=== PATIENT | male | born 1960 | race African-American/Black ===

== ENCOUNTER 2016-11-29 22:30 | Emergency (ER) | payer OTHER ==
[~2016-11-29 22:30] MED LIST: ACET325T16 PO; ASPI81TA9 PO; ATOR40TA59 PO; ENOX40DI SQ; FAMO20TA5 PO; FERR-26 PO; HYDR-2666 PO; INSU100I13 SQ; INSU100I17 SQ; INSU100I27 SQ; INSU100V5 IJ; LISI-338 PO; LISI2.5T PO; OMEG1CAP6 PO; PANT40TA5 PO; PIPE3.3710 IV; TRAM50TA PO; [UNRECOGNIZED DRUG - CODE] TP
[2016-11-30] MEDS ORDERED: INSULIN REGULAR 100 UNIT/ML 10ML VIAL. ONE (00:03)
[2016-11-30 00:10] LABS: BASO % 1 % (0-3); EOS % 1 % (0-3); HEMATOCRIT 28.8 % (39.0-53.0); HEMOGLOBIN 9.7 g/dL (13.0-17.5); LYMPH % 30 % (24-48); MEAN CORPUSCULAR HEMOGLOBIN 29 pg (25-35); MEAN CORPUSCULAR HGB CONC 34 g/dL (31-37); MEAN CORPUSCULAR VOLUME 88 fL (79-100); MONO % 6 % (0-9); NEUT % 62 % (31-73); PLATELET COUNT 155 x10^3/uL (140-400); RED CELL DISTRIBUTION WIDTH 15.5 % (11.5-14.5); WHITE BLOOD COUNT 6.7 x10^3/uL (4.0-11.0)
[2016-11-30] MEDS ORDERED: INSULIN REGULAR 100 UNIT/ML 10ML VIAL. IV ONE (00:15)
[2016-11-30] MEDS ORDERED: IV NORMAL SALINE 1000ML BAG 1,000 ML IV SCH (00:15)
[2016-11-30 00:24] LABS: ALBUMIN 1.5 g/dL (3.4-5.0); ALBUMIN/GLOBULIN RATIO 0.2 (1.0-1.7); CALCIUM 8.1 mg/dL (8.5-10.1); CREATININE 1.6 mg/dL (0.7-1.3); GFR 54.2; POTASSIUM 3.7 mmol/L (3.5-5.1); TOTAL BILIRUBIN 0.3 mg/dL (0.2-1.0); TOTAL PROTEIN 7.6 g/dL (6.4-8.2)
[2016-11-30 01:06] LABS: BILIRUBIN,URINE NEGATIVE (NEG); GLUCOSE,URINE >=1000 mg/dL (NEG); NITRITE,URINE NEGATIVE (NEG); PH,URINE 7.5; PROTEIN,URINE >=300 mg/dL (NEG-TRACE); UROBILINOGEN,URINE 0.2 mg/dL (0.2 mg/dL)
[2016-11-30 01:12] LABS: BACTERIA,URINE 0 /HPF (0-FEW); SQUAMOUS EPITHELIAL CELL,UR OCC /LPF; WBC,URINE 0 /HPF (0-4)
--- NOTE | 2016-11-30 02:40 | PHYS DOC ---
Past Medical History Past Medical History: Diabetes-Type II, Hypertension Past Surgical History: Other Additional Past Surgical Histo: HENRRY. BKA Alcohol Use: None Drug Use: None Adult General Chief Complaint Chief Complaint: MECHANICAL FALL HPI HPI Patient is a 56 year old gentleman with history significant for hypertension and diabetes status post bilateral AKA presents to the ER today secondary to his . Thump upstairs Upstairs in finding him on the floor. Patient has Hardwood floors. Patient denies any head trauma or loss of consciousness. Patient has any fevers shakes chills nausea vomiting diarrhea chest pain or short of breath. Patient denies any new weaknesses. Patient denies any C-spine T -spine or L-spine pain. Patient reports his tetanus status is up-to-date. Patient reports she currently has no discomforts and is not sure why his called EMS to bring him here. Patient's physical exam is significant for tenderness to palpation to his left arm where the abrasions are. Patient has no bony deformity. Patient has full range of motion to his C-spine. Patient has no tenderness palpation to his head. Patient has no tenderness to palpation to his upper or lower extremities. Patient has full range of motion to his arms. A/P #1 fall. Patient appears to have fallen out of bed while he is sleeping. Patient has no evidence of any significant head trauma or neck trauma. Patient does have some abrasions to his left arm. Patient has no tenderness to palpation to his hip. Patient pelvis is stable. There is no indication of this time for any x-rays as the patient is not complaining of any pain or discomfort anywhere. Patient does have abrasions to his left forearm that were Dermabond. #2 hyperglycemia. Patient was found to have an elevated blood sugar here greater than 600. Patient was given a liter of normal saline as well as 10 units of IV insulin. Patient's blood sugar was trending down prior to discharge. We have initiated treatment for the patient's hyperglycemia and have discussed with him appropriate treatment as well as dietary control. Patient is discussed with his primary care physician appropriate sliding scale. Patient does not have any evidence of DKA. There is no acidosis, there is no ketones in urine. Patient is clinically and hemodynamically stable for discharge to home. Review of Systems Review of Systems Constitutional: Denies fever or chills [] Eyes: Denies change in visual acuity, redness, or eye pain [] HENT: Denies nasal congestion or sore throat [] All other review systems are negative except as documented in the history of present illness. Current Medications Current Medications Current Medications Medications (Trade) Dose Ordered Sig/Akua Start Time Stop Time Status Last Admin Dose Admin Insulin Human Regular (Novolin R Vial) 100 unit STK-MED ONCE 11/30/16 00:03 11/30/16 00:04 DC Sodium Chloride (Iv Sodium Chloride 0.9% 1000ml Bag) 1,000 ml @ 1,000 mls/hr Q1H 11/30/16 00:15 11/30/16 01:14 DC 11/30/16 00:05 1,000 MLS/HR Allergies Allergies Allergies Coded Allergies Type Severity Reaction Last Updated Verified aspirin Allergy Intermediate Nausea and Vomiting 09/29/16 Yes I S O L A T I O N *CONTACT* Allergy Unknown 09/29/16 Yes No Known Medication Allergies Allergy Unknown 09/29/16 Yes Physical Exam Physical Exam Constitutional: Well developed, well nourished, no acute distress, non-toxic appearance. [] HENT: Normocephalic, atraumatic, bilateral external ears normal, oropharynx moist, no oral exudates, nose normal. [] Eyes: PERRLA, EOMI, conjunctiva normal, no discharge. [] Neck: Normal range of motion, no tenderness, supple, no stridor. [] Cardiovascular:Heart rate regular rhythm, Lungs & Thorax: Bilateral breath sounds clear to auscultation [] Abdomen: Bowel sounds normal, soft, no tenderness, no masses, no pulsatile masses. [] Skin: Warm, dry, no erythema, no rash. [] Back: No tenderness, no CVA tenderness. [] Extremities: No tenderness, Neurologic: Alert and oriented X 3, normal motor function, normal sensory function, no focal deficits noted. [] Psychologic: Affect normal, judgement normal, mood normal. [] Current Patient Data Vital Signs Vital Signs Date Time Temp Pulse Resp B/P Pulse Ox O2 Delivery O2 Flow Rate FiO2 11/30/16 02:41 72 170/88 99 Room Air 11/30/16 00:41 20 11/29/16 22:44 97.4 97.4 Lab Values Laboratory Tests Test 11/29/16 23:05 11/30/16 00:33 11/30/16 00:50 11/30/16 02:04 White Blood Count 6.7x10^3/uL (4.0-11.0) Red Blood Count 3.30x10^6/uL (4.30-5.70) L Hemoglobin 9.7g/dL (13.0-17.5) L Hematocrit 28.8% (39.0-53.0) L Mean Corpuscular Volume 88fL (79-100) Mean Corpuscular Hemoglobin 29pg (25-35) Mean Corpuscular Hemoglobin Concent 34g/dL (31-37) Red Cell Distribution Width 15.5% (11.5-14.5) H Platelet Count 155x10^3/uL (140-400) Neutrophils (%) (Auto) 62% (31-73) Lymphocytes (%) (Auto) 30% (24-48) Monocytes (%) (Auto) 6% (0-9) Eosinophils (%) (Auto) 1% (0-3) Basophils (%) (Auto) 1% (0-3) Neutrophils # (Auto) 4.2x10^3uL (1.8-7.7) Lymphocytes # (Auto) 2.0x10^3/uL (1.0-4.8) Monocytes # (Auto) 0.4x10^3/uL (0.0-1.1) Eosinophils # (Auto) 0.1x10^3/uL (0.0-0.7) Basophils # (Auto) 0.0x10^3/uL (0.0-0.2) Sodium Level 138mmol/L (136-145) Potassium Level 3.7mmol/L (3.5-5.1) Chloride Level 102mmol/L (98-107) Carbon Dioxide Level 30mmol/L (21-32) Anion Gap 6 (6-14) Blood Urea Nitrogen 25mg/dL (8-26) Creatinine 1.6mg/dL (0.7-1.3) H Estimated GFR (Cockcroft-Gault) 54.2 BUN/Creatinine Ratio 16 (6-20) Glucose Level 636mg/dL (70-99) *H Calcium Level 8.1mg/dL (8.5-10.1) L Total Bilirubin 0.3mg/dL (0.2-1.0) Aspartate Amino Transferase (AST) 37U/L (15-37) Alanine Aminotransferase (ALT) 33U/L (16-63) Alkaline Phosphatase 146U/L (46-116) H Total Protein 7.6g/dL (6.4-8.2) Albumin 1.5g/dL (3.4-5.0) L Albumin/Globulin Ratio 0.2 (1.0-1.7) L Glucose (Fingerstick) 559mg/dL (70-99) *H 437mg/dL (70-99) H Urine Collection Type Unknown Urine Color Yellow Urine Clarity Clear Urine pH 7.5 Urine Specific [place] 1.020 Urine Protein >=300mg/dL (NEG-TRACE) Urine Glucose (UA) >=1000mg/dL (NEG) Urine Ketones (Stick) Negativemg/dL (NEG) Urine Blood Small (NEG) Urine Nitrite Negative (NEG) Urine Bilirubin Negative (NEG) Urine Urobilinogen Dipstick 0.2mg/dL (0.2 mg/dL) Urine Leukocyte Esterase Negative (NEG) Urine RBC 3-5/HPF (0-2) Urine WBC 0/HPF (0-4) Urine Squamous Epithelial Cells Occ/LPF Urine Bacteria 0/HPF (0-FEW) Urine Mucus Slight/LPF Laboratory Tests 11/29/16 23:05 Laboratory Tests 11/29/16 23:05 EKG EKG [] Radiology/Procedures Radiology/Procedures [] Course & Med Decision Making Course & Med Decision Making Pertinent Labs and Imaging studies reviewed. (See chart for details) [] Dragon Disclaimer Dragon Disclaimer This electronic medical record was generated, in whole or in part, using a voice recognition dictation system. Departure Departure Impression: Primary Impression: Hyperglycemia due to type 1 diabetes mellitus Additional Impressions: Fall Arm abrasion Disposition: HOME, SELF-CARE Condition: IMPROVED Referrals: NO PCP (PCP) Patient Instructions: Abrasions, Fall Prevention and Home Safety, Hyperglycemia Additional Instructions: Please call your doctor in the morning to help with adjusting her insulin and her diet to help better control your blood sugar. Problem Qualifiers SUNDEEP GARRISON MD Nov 30, 2016 02:40
[2016-11-30 02:41] VITALS: BP 170/88
== END 2016-11-30 03:45 | disposition home or self-care (01) ==
LOC: ER 22:30
DX: S40.812A Abrasion of left upper arm, initial encounter (principal); E10.65 Type 1 diabetes mellitus with hyperglycemia; Z79.4 Long term (current) use of insulin; Z88.6 Allergy status to analgesic agent; Z91.041 Radiographic dye allergy status; I10 Essential (primary) hypertension; W06.XXXA Fall from bed, initial encounter; Y93.89 Activity, other specified; Y92.89 Other specified places as the place of occurrence of the external cause; Y99.8 Other external cause status
CPT/HCPCS: 36415; 80053; 81001; 82947; 85027; 96361; 96374; 99284; J1815; J7030

== ENCOUNTER 2016-12-10 07:56 | Inpatient (IN) | payer OTHER ==
[~2016-12-10] VITALS: Ht 200.7 cm; Wt 78.7 kg
[2016-12-10] MEDS ORDERED: INSULIN REGULAR 100 UNIT/ML 10ML VIAL. IV ONE (08:45)
[2016-12-10] MEDS ORDERED: IV NORMAL SALINE 1000ML BAG 1,000 ML IV ONE (08:45)
--- NOTE | 2016-12-10 08:46 | PHYS DOC ---
Past Medical History Past Medical History: Diabetes-Type II, Hypertension Past Surgical History: Other Additional Past Surgical Histo: HENRRY. BKA Alcohol Use: None Drug Use: None Adult General Chief Complaint Chief Complaint: SEIZURE HPI HPI Patient is a 56 year old female presents to the emergency department with a history of a two-minute seizure that was witnessed today. She also has a history of diabetes with a blood glucose of 588 per EMS. Patient appears to be alert and oriented to himself and his state of . Patient has bilateral BKA. Patient has a dressing on his right stump. Patient has multiple skin wounds one noted on the right hip one noted on the left knee, and right lateral knee. Review of Systems Review of Systems Constitutional: Denies fever or chills [] Eyes: Denies change in visual acuity, redness, or eye pain [] HENT: Denies nasal congestion or sore throat [] Respiratory: Denies cough or shortness of breath [] Cardiovascular: No additional information not addressed in HPI [] GI: Denies abdominal pain, nausea, bloody stools or diarrhea. Patient states he vomited at home : Denies dysuria or hematuria [] Musculoskeletal: Denies back pain or joint pain [] Integument: Denies rash or skin lesions [] Neurologic: Denies headache, focal weakness or sensory changes. Hx of seizure at home Current Medications Current Medications Current Medications Medications (Trade) Dose Ordered Sig/Akua Start Time Stop Time Status Last Admin Dose Admin Insulin Human Regular (Novolin R Vial) 10 unit 1X ONCE 12/10/16 08:45 12/10/16 08:46 DC 12/10/16 09:32 10 UNIT Sodium Chloride (Iv Sodium Chloride 0.9% 1000ml Bag) 1,000 ml @ 1,000 mls/hr 1X ONCE 12/10/16 08:45 12/10/16 09:44 DC 12/10/16 08:47 1,000 MLS/HR Allergies Allergies Allergies Coded Allergies Type Severity Reaction Last Updated Verified aspirin Allergy Intermediate Nausea and Vomiting 09/29/16 Yes I S O L A T I O N *CONTACT* Allergy Unknown 09/29/16 Yes No Known Medication Allergies Allergy Unknown 09/29/16 Yes Physical Exam Physical Exam Constitutional: Well developed, well nourished, no acute distress, non-toxic appearance. [] HENT: Normocephalic, atraumatic, bilateral external ears normal, oropharynx moist, no oral exudates, nose normal. [] Eyes: PERRLA, EOMI, conjunctiva normal, no discharge. [] Neck: Normal range of motion, no tenderness, supple, no stridor. [] Cardiovascular:Heart rate regular rhythm, no murmur [] Lungs & Thorax: Bilateral breath sounds clear to auscultation [] Abdomen: Bowel sounds normal, soft, no tenderness, no masses, no pulsatile masses. [] Skin: Warm, dry, no erythema, no rash. Patient with wound on the right hip that appears to be 5 cm x 3 cm in length the area appears to be open pink with no drainage. Patient also noted to have a wound on the right lateral part of the leg that appears to be healing. No drainage or discharge noted. Patient with wound on the left knee that appears to be healing as well. Patient with a dressing on the right lower limb that appears to have drainage and discharge noted. Back: No tenderness Extremities: No tenderness, ROM intact, no edema. Patient with bilateral BKA's noted. Neurologic: Alert and oriented X 1, normal motor function, normal sensory function, no focal deficits noted, cranial nerves II through XII intact. [] Psychologic: Affect normal, judgement impaired by altered mental status, mood normal. [] Current Patient Data Vital Signs Vital Signs Date Time Temp Pulse Resp B/P Pulse Ox O2 Delivery O2 Flow Rate FiO2 12/10/16 08:51 85 14 216/99 98 Room Air 12/10/16 08:14 97.5 97.5 Lab Values Laboratory Tests Test 12/10/16 08:40 White Blood Count 7.4x10^3/uL (4.0-11.0) Red Blood Count 3.52x10^6/uL (4.30-5.70) L Hemoglobin 10.7g/dL (13.0-17.5) L Hematocrit 30.6% (39.0-53.0) L Mean Corpuscular Volume 87fL (79-100) Mean Corpuscular Hemoglobin 30pg (25-35) Mean Corpuscular Hemoglobin Concent 35g/dL (31-37) Red Cell Distribution Width 15.8% (11.5-14.5) H Platelet Count 211x10^3/uL (140-400) Neutrophils (%) (Auto) 66% (31-73) Lymphocytes (%) (Auto) 27% (24-48) Monocytes (%) (Auto) 5% (0-9) Eosinophils (%) (Auto) 2% (0-3) Basophils (%) (Auto) 0% (0-3) Neutrophils # (Auto) 4.9x10^3uL (1.8-7.7) Lymphocytes # (Auto) 2.0x10^3/uL (1.0-4.8) Monocytes # (Auto) 0.4x10^3/uL (0.0-1.1) Eosinophils # (Auto) 0.1x10^3/uL (0.0-0.7) Basophils # (Auto) 0.0x10^3/uL (0.0-0.2) Sodium Level 139mmol/L (136-145) Potassium Level 3.7mmol/L (3.5-5.1) Chloride Level 103mmol/L (98-107) Carbon Dioxide Level 27mmol/L (21-32) Anion Gap 9 (6-14) Blood Urea Nitrogen 32mg/dL (8-26) H Creatinine 1.5mg/dL (0.7-1.3) H Estimated GFR (Cockcroft-Gault) 58.4 BUN/Creatinine Ratio 21 (6-20) H Glucose Level 594mg/dL (70-99) *H Calcium Level 9.1mg/dL (8.5-10.1) Total Bilirubin 0.3mg/dL (0.2-1.0) Aspartate Amino Transferase (AST) 30U/L (15-37) Alanine Aminotransferase (ALT) 27U/L (16-63) Alkaline Phosphatase 145U/L (46-116) H Troponin I Quantitative < 0.017ng/mL (0.000-0.055) Total Protein 8.0g/dL (6.4-8.2) Albumin 1.6g/dL (3.4-5.0) L Albumin/Globulin Ratio 0.3 (1.0-1.7) L Laboratory Tests 12/10/16 08:40 Laboratory Tests 12/10/16 08:40 EKG EKG EKG completed with a heart rate of 85 sinus rhythm noted no ectopy noted no STEMI noted per Dr. Shine. [] Radiology/Procedures Radiology/Procedures [facility] [address] [place], [place] [id number] IMAGING REPORT Signed PATIENT: CAROLYNE GRIMM ACCOUNT: [id number] : 1960 LOCATION: ER AGE: 56 SEX: M EXAM STATUS: REG ER ORD. PHYSICIAN: DENISE KEYS APRN REASON: seizure, altered mental status PROCEDURE: CT HEAD WO CONTRAST Indication seizure. Noncontrast images of the head were obtained. No prior imaging of the head is available. The calvarium appears unremarkable. The visualized paranasal sinuses appear normal. No subdural or epidural hematoma is seen. There is generalized atrophy. There is mild hydrocephalus. No mass or midline shift is seen. Acute finding is not seen. There is no evidence of parenchymal hemorrhage. IMPRESSION: Underlying atrophy. Mild hydrocephalus. No acute finding seen PQRS Compliance Statement: One or more of the following individualized dose reduction techniques were utilized for this examination: 1. Automated exposure control 2. Adjustment of the mA and/or kV according to patient size 3. Use of iterative reconstruction technique DICTATED and SIGNED BY: AMADOU WHITE MD DATE: 12/10/16928 CC: DENISE KEYS APRN; NO PCP; Christiano SHINE MD ~ [id number] [place] [address] IMAGING REPORT Signed PATIENT: CAROLYNE GRIMM ACCOUNT: [id number] : 1960 LOCATION: ER AGE: 56 SEX: M EXAM STATUS: REG ER ORD. PHYSICIAN: DENISE KEYS APRN REASON: seizure confused PROCEDURE: PORTABLE CHEST 1V Indication seizure. Chest pain. Suspect aspiration. A single view of the chest was obtained. Comparison is made to an examination August 24, 2016. Heart size is unchanged. There is no gross congestive heart failure. A focal infiltrate is not seen in either lung. There is no significant pleural fluid. There is no pneumothorax. A significant change when compared to the previous exam is not seen. IMPRESSION: No acute or focal process. No significant change DICTATED and SIGNED BY: AMADOU WHITE MD DATE: 12/10/1669 CC: DENISE KEYS APRN; NO PCP; NON,STAFF ~ Chest x-ray as interpreted by Dr. Shine with no acute cardiopulmonary disease process Head CT without contrast Course & Med Decision Making Course & Med Decision Making Pertinent Labs and Imaging studies reviewed. (See chart for details) CBC with WBC normal, CMP with glucose elevated. Lactic normal, troponin normal. Pending UA. Dr Shine in to evaluate patient. [address] Mederos in regards to admission for this patient. [] Patient was seen and examined with Denise Keys APRN. Agree with exam and plan as documented. He will be admitted to the hospital for altered mental status and uncontrolled hyperglycemia. -MD Yazmin Hu Disclaimer Dragon Disclaimer This electronic medical record was generated, in whole or in part, using a voice recognition dictation system. 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
--- NOTE | 2016-12-10 08:52 | EKG ---
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
[2016-12-10 09:21] LABS: ALBUMIN 1.6 g/dL (3.4-5.0); ALBUMIN/GLOBULIN RATIO 0.3 (1.0-1.7); CALCIUM 9.1 mg/dL (8.5-10.1); CREATININE 1.5 mg/dL (0.7-1.3); GFR 58.4; POTASSIUM 3.7 mmol/L (3.5-5.1); TOTAL BILIRUBIN 0.3 mg/dL (0.2-1.0)
--- NOTE | 2016-12-10 09:31 | RAD ---
Indication seizure. Chest pain. Suspect aspiration. A single view of the chest was obtained. Comparison is made to an examination August 24, 2016. Heart size is unchanged. There is no gross congestive heart failure. A focal infiltrate is not seen in either lung. There is no significant pleural fluid. There is no pneumothorax. A significant change when compared to the previous exam is not seen. IMPRESSION: No acute or focal process. No significant change
[2016-12-10 09:32] LABS: BASO % 0 % (0-3); EOS % 2 % (0-3); HEMATOCRIT 30.6 % (39.0-53.0); HEMOGLOBIN 10.7 g/dL (13.0-17.5); LYMPH % 27 % (24-48); MEAN CORPUSCULAR HEMOGLOBIN 30 pg (25-35); MEAN CORPUSCULAR HGB CONC 35 g/dL (31-37); MEAN CORPUSCULAR VOLUME 87 fL (79-100); MONO % 5 % (0-9); NEUT % 66 % (31-73); PLATELET COUNT 211 x10^3/uL (140-400); RED BLOOD COUNT 3.52 x10^6/uL (4.30-5.70); RED CELL DISTRIBUTION WIDTH 15.8 % (11.5-14.5); WHITE BLOOD COUNT 7.4 x10^3/uL (4.0-11.0)
--- NOTE | 2016-12-10 09:35 | RAD ---
Indication seizure. Noncontrast images of the head were obtained. No prior imaging of the head is available. The calvarium appears unremarkable. The visualized paranasal sinuses appear normal. No subdural or epidural hematoma is seen. There is generalized atrophy. There is mild hydrocephalus. No mass or midline shift is seen. Acute finding is not seen. There is no evidence of parenchymal hemorrhage. IMPRESSION: Underlying atrophy. Mild hydrocephalus. No acute finding seen PQRS Compliance Statement: One or more of the following individualized dose reduction techniques were utilized for this examination: 1. Automated exposure control 2. Adjustment of the mA and/or kV according to patient size 3. Use of iterative reconstruction technique
[2016-12-10] MEDS: IV NORMAL SALINE 1000ML BAG 1,000 ML IV SCH ×3 (09:59→22:58)
[2016-12-10 10:02] LABS: BILIRUBIN,URINE NEGATIVE (NEG); GLUCOSE,URINE >=1000 mg/dL (NEG); NITRITE,URINE NEGATIVE (NEG); PROTEIN,URINE 100 mg/dL (NEG-TRACE); UROBILINOGEN,URINE 0.2 mg/dL (0.2 mg/dL)
[2016-12-10 10:10] LABS: BACTERIA,URINE 0 /HPF (0-FEW); WBC,URINE 0 /HPF (0-4)
[2016-12-10] MEDS ORDERED: LABETALOL 20 MG/4 ML DISP.SYRIN. IVP ONE (10:15)
[2016-12-10 11:30] VITALS: BP 162/87
[2016-12-10] MEDS ORDERED: DEXTROSE 50% 25 GM / 50ML DISP.SYRIN. IV PRN (12:00)
[2016-12-10] MEDS: INSULIN ASPART 300 UNITS/3 ML INSULN.PEN SQ SCH ×3 (12:00→16:57)
[2016-12-10] MEDS ORDERED: INSULIN ASPART 300 UNITS/3 ML INSULN.PEN SQ ONE (12:30)
[2016-12-10 14:30] VITALS: BP 156/81
--- NOTE | 2016-12-10 14:59 | PDOC1 ---
History and Physical Date of Admission Date of Admission 12/10/16 Identification/Chief Complaint Chief Complaint seizure Problems: Source Source: Chart review, Patient History of Present Illness History of Present Illness HPI Patient is a 56 year old female presents to the emergency department with seizure. Pt likely has dementia, cannot contribute a good history, as per nurse, his said this is his baseline. Pt said he may had a history of seizure, but not on any meds for it. He said he had one time seizure last night, had urinary incontinence, another time of seizure today, but dosenot remember what happened. EMS was called. He is now aaox to 2, to person, place, but not the year or date. Patient has bilateral BKA. Patient has a dressing on his right stump. Patient has multiple skin wounds one noted on the right hip one noted on the left knee, and right lateral knee. Past Medical History Cardiovascular: No pertinent hx Pulmonary: No pertinent hx CENTRAL NERVOUS SYSTEM: Other GI: No pertinent hx Heme/Onc: No pertinent hx Hepatobiliary: No pertinent hx Psych: No pertinent hx Rheumatologic: No pertinent hx Infectious disease: No pertinent hx Renal/: No pertinent hx Endocrine: Diabetes Past Surgical History Past Surgical History: Appendectomy, Arthroscopy, Other Family History Family History: Coronary Artery Disease Social History Smoke: No ALCOHOL: none Drugs: None Current Problem List Problem List Problems Medical Problems: (1) Altered mental status Status: Acute (2) Seizure-like activity Status: Acute (3) Uncontrolled diabetes mellitus Status: Acute Current Medications Current Medications Current Medications Medications (Trade) Dose Ordered Sig/Akua Start Time Stop Time Status Last Admin Dose Admin Dextrose (Dextrose 50%-Water Syringe) 12.5 gm PRN Q15MIN PRN 12/10/16 12:00 Insulin Aspart (Novolog) 0-9 UNITS TIDWMEALS 12/10/16 12:00 Insulin Human Regular 10 unit 10 unit 1X ONCE 12/10/16 08:45 12/10/16 08:46 DC 12/10/16 09:32 10 UNIT Labetalol HCl (Normodyne) 10 mg 1X ONCE 12/10/16 10:15 12/10/16 10:16 DC 12/10/16 10:13 10 MG Sodium Chloride (Iv Sodium Chloride 0.9% 1000ml Bag) 1,000 ml @ 125 mls/hr Q8H 12/10/16 09:59 12/11/16 09:58 12/10/16 09:59 125 MLS/HR Allergies Allergies Allergies Coded Allergies Type Severity Reaction Last Updated Verified aspirin Allergy Intermediate Nausea and Vomiting 09/29/16 Yes I S O L A T I O N *CONTACT* Allergy Unknown 09/29/16 Yes No Known Medication Allergies Allergy Unknown 09/29/16 Yes ROS Review of System CONSTITUTIONAL: No fever or chills EYES: No recent changes SKIN: No rash or itching CARDIOVASCULAR: No chest pain, syncope, palpitations, or edema RESPIRATORY: No SOB or cough GASTROINTESTINAL: No nausea, vomiting or abdominal pain NEUROLOGICAL: No headaches or weakness ENDOCRINE: No cold or heat intolerance GENITOURINARY: No urgency or frequency of urination MUSCULOSKELETAL: No back pain or joint pain LYMPHATICS: No enlarged lymph nodes PSYCHIATRIC: No anxiety or depression Physical Exam Physical Exam GEN.: No apparent distress. Alert and oriented x2, to person, place, name of president, not year. follow commands HEENT: Head is normocephalic, atraumatic NECK: Supple. LUNGS: Clear to auscultation. HEART: RRR, S1, S2 present. Peripheral pulses intact ABDOMEN: Soft, nontender. Positive bowel sounds. EXTREMITIES: Without any cyanosis. bl bka, with superficial wound and dressing on NEUROLOGIC: Normal speech, normal tone PSYCHIATRIC: Normal affect, normal mood. SKIN: No ulcerations Vitals Vitals Vital Signs Date Time Temp Pulse Resp B/P Pulse Ox O2 Delivery O2 Flow Rate FiO2 12/10/16 14:30 98.8 79 20 156/81 98 Room Air 98.8 Labs Labs Laboratory Tests Test 12/10/16 08:40 12/10/16 09:05 12/10/16 09:23 12/10/16 09:53 White Blood Count 7.4x10^3/uL (4.0-11.0) Red Blood Count 3.52x10^6/uL (4.30-5.70) Hemoglobin 10.7g/dL (13.0-17.5) Hematocrit 30.6% (39.0-53.0) Mean Corpuscular Volume 87fL (79-100) Mean Corpuscular Hemoglobin 30pg (25-35) Mean Corpuscular Hemoglobin Concent 35g/dL (31-37) Red Cell Distribution Width 15.8% (11.5-14.5) Platelet Count 211x10^3/uL (140-400) Neutrophils (%) (Auto) 66% (31-73) Lymphocytes (%) (Auto) 27% (24-48) Monocytes (%) (Auto) 5% (0-9) Eosinophils (%) (Auto) 2% (0-3) Basophils (%) (Auto) 0% (0-3) Neutrophils # (Auto) 4.9x10^3uL (1.8-7.7) Lymphocytes # (Auto) 2.0x10^3/uL (1.0-4.8) Monocytes # (Auto) 0.4x10^3/uL (0.0-1.1) Eosinophils # (Auto) 0.1x10^3/uL (0.0-0.7) Basophils # (Auto) 0.0x10^3/uL (0.0-0.2) Sodium Level 139mmol/L (136-145) Potassium Level 3.7mmol/L (3.5-5.1) Chloride Level 103mmol/L (98-107) Carbon Dioxide Level 27mmol/L (21-32) Anion Gap 9 (6-14) Blood Urea Nitrogen 32mg/dL (8-26) Creatinine 1.5mg/dL (0.7-1.3) Estimated GFR (Cockcroft-Gault) 58.4 BUN/Creatinine Ratio 21 (6-20) Glucose Level 594mg/dL (70-99) Calcium Level 9.1mg/dL (8.5-10.1) Total Bilirubin 0.3mg/dL (0.2-1.0) Aspartate Amino Transf (AST/SGOT) 30U/L (15-37) Alanine Aminotransferase (ALT/SGPT) 27U/L (16-63) Alkaline Phosphatase 145U/L (46-116) Troponin I Quantitative < 0.017ng/mL (0.000-0.055) Total Protein 8.0g/dL (6.4-8.2) Albumin 1.6g/dL (3.4-5.0) Albumin/Globulin Ratio 0.3 (1.0-1.7) Lactic Acid Level 1.5mmol/L (0.4-2.0) Glucose (Fingerstick) 519mg/dL (70-99) Urine Collection Type Unknown Urine Color Yellow Urine Clarity Clear Urine pH 7.0 Urine Specific [place] 1.015 Urine Protein 100mg/dL (NEG-TRACE) Urine Glucose (UA) >=1000mg/dL (NEG) Urine Ketones (Stick) Tracemg/dL (NEG) Urine Blood Small (NEG) Urine Nitrite Negative (NEG) Urine Bilirubin Negative (NEG) Urine Urobilinogen Dipstick 0.2mg/dL (0.2 mg/dL) Urine Leukocyte Esterase Negative (NEG) Urine RBC 6-10/HPF (0-2) Urine WBC 0/HPF (0-4) Urine Bacteria 0/HPF (0-FEW) Test 12/10/16 11:47 Glucose (Fingerstick) 361mg/dL (70-99) Laboratory Tests Test 12/10/16 08:40 12/10/16 09:05 12/10/16 09:23 12/10/16 09:53 White Blood Count 7.4x10^3/uL (4.0-11.0) Red Blood Count 3.52x10^6/uL (4.30-5.70) Hemoglobin 10.7g/dL (13.0-17.5) Hematocrit 30.6% (39.0-53.0) Mean Corpuscular Volume 87fL (79-100) Mean Corpuscular Hemoglobin 30pg (25-35) Mean Corpuscular Hemoglobin Concent 35g/dL (31-37) Red Cell Distribution Width 15.8% (11.5-14.5) Platelet Count 211x10^3/uL (140-400) Neutrophils (%) (Auto) 66% (31-73) Lymphocytes (%) (Auto) 27% (24-48) Monocytes (%) (Auto) 5% (0-9) Eosinophils (%) (Auto) 2% (0-3) Basophils (%) (Auto) 0% (0-3) Neutrophils # (Auto) 4.9x10^3uL (1.8-7.7) Lymphocytes # (Auto) 2.0x10^3/uL (1.0-4.8) Monocytes # (Auto) 0.4x10^3/uL (0.0-1.1) Eosinophils # (Auto) 0.1x10^3/uL (0.0-0.7) Basophils # (Auto) 0.0x10^3/uL (0.0-0.2) Sodium Level 139mmol/L (136-145) Potassium Level 3.7mmol/L (3.5-5.1) Chloride Level 103mmol/L (98-107) Carbon Dioxide Level 27mmol/L (21-32) Anion Gap 9 (6-14) Blood Urea Nitrogen 32mg/dL (8-26) Creatinine 1.5mg/dL (0.7-1.3) Estimated GFR (Cockcroft-Gault) 58.4 BUN/Creatinine Ratio 21 (6-20) Glucose Level 594mg/dL (70-99) Calcium Level 9.1mg/dL (8.5-10.1) Total Bilirubin 0.3mg/dL (0.2-1.0) Aspartate Amino Transf (AST/SGOT) 30U/L (15-37) Alanine Aminotransferase (ALT/SGPT) 27U/L (16-63) Alkaline Phosphatase 145U/L (46-116) Troponin I Quantitative < 0.017ng/mL (0.000-0.055) Total Protein 8.0g/dL (6.4-8.2) Albumin 1.6g/dL (3.4-5.0) Albumin/Globulin Ratio 0.3 (1.0-1.7) Lactic Acid Level 1.5mmol/L (0.4-2.0) Glucose (Fingerstick) 519mg/dL (70-99) Urine Collection Type Unknown Urine Color Yellow Urine Clarity Clear Urine pH 7.0 Urine Specific [place] 1.015 Urine Protein 100mg/dL (NEG-TRACE) Urine Glucose (UA) >=1000mg/dL (NEG) Urine Ketones (Stick) Tracemg/dL (NEG) Urine Blood Small (NEG) Urine Nitrite Negative (NEG) Urine Bilirubin Negative (NEG) Urine Urobilinogen Dipstick 0.2mg/dL (0.2 mg/dL) Urine Leukocyte Esterase Negative (NEG) Urine RBC 6-10/HPF (0-2) Urine WBC 0/HPF (0-4) Urine Bacteria 0/HPF (0-FEW) Test 12/10/16 11:47 Glucose (Fingerstick) 361mg/dL (70-99) VTE Prophylaxis Ordered VTE Prophylaxis Devices: Yes VTE Pharmacological Prophylaxi: Yes Assessment/Plan Assessment/Plan 1. seizure like activity, need to rule out epilepsy 2. h/o seizure? 2. dm2, uncontrolled, 4. uncompliance 5. htn 6. TE, vasomotor 7. bl leg BKA with wound 8. possible baseline mild dementia plan: neuro consult wound care consult check hba1c, levemir 20u qhs, aspart 6u tid, SSI ivf ptot ativan prn fall precaution dvt ppx check ckmb, urine drug tox FOREST LEWIS MD Dec 10, 2016 14:59
[2016-12-10] MEDS ORDERED: TRAMADOL 50 MG TABLET. PO PRN (15:00)
[2016-12-10] MEDS ORDERED: LISINOPRIL 10 MG TABLET PO SCH (15:00)
[2016-12-10] MEDS ORDERED: hydrALAZINE 20 MG/ML VIAL. IVP PRN (15:00)
[2016-12-10] MEDS ORDERED: LORAZEPAM 2 MG/ML VIAL. IV PRN (15:00)
[2016-12-10] MEDS ORDERED: HYDROCODONE/APAP 5/325MG TABLET. PO PRN (15:00)
[2016-12-10] MEDS ORDERED: ONDANSETRON PF 4 MG/2 ML VIAL. IV PRN (15:00)
[2016-12-10 15:13] LABS: BARBITURATES NEG (NEG); BENZODIAZEPINES NEG (NEG); CANNABINOIDS NEG (NEG); COCAINE NEG (NEG); ETHANOL, URINE NEG (NEG); METHADONE NEG (NEG); OPIATES NEG (NEG); PHENCYCLIDINE NEG (NEG)
[2016-12-10 15:19] LABS: CKMB INDEX 3.2 % (0-4); CKMB MASS 3.3 ng/mL (0.0-3.6)
[2016-12-10] MEDS: LISINOPRIL 5 MG TABLET. PO SCH (16:50)
[2016-12-10 19:59] VITALS: BP 137/80
[2016-12-10] MEDS: FAMOTIDINE 20 MG TABLET. PO SCH (21:25)
[2016-12-10] MEDS: HEPARIN PF for SUB-Q USE 5,000 UNIT/0.5 ML VIAL. SQ SCH (21:43)
[2016-12-10] MEDS: INSULIN DETEMIR 300 UNITS/3 ML INSULN.PEN. SQ SCH (21:43)
[2016-12-10 23:59] VITALS: BP 157/83
[2016-12-11 05:17] LABS: BASO % 0 % (0-3); EOS % 1 % (0-3); HEMATOCRIT 25.2 % (39.0-53.0); HEMOGLOBIN 8.8 g/dL (13.0-17.5); LYMPH # 2.7 x10^3/uL (1.0-4.8); LYMPH % 39 % (24-48); MEAN CORPUSCULAR HEMOGLOBIN 30 pg (25-35); MEAN CORPUSCULAR HGB CONC 35 g/dL (31-37); MEAN CORPUSCULAR VOLUME 88 fL (79-100); MONO % 5 % (0-9); NEUT % 54 % (31-73); PLATELET COUNT 184 x10^3/uL (140-400); RED BLOOD COUNT 2.88 x10^6/uL (4.30-5.70); RED CELL DISTRIBUTION WIDTH 16.5 % (11.5-14.5); WHITE BLOOD COUNT 6.9 x10^3/uL (4.0-11.0)
[2016-12-11 05:31] LABS: CALCIUM 7.6 mg/dL (8.5-10.1); CREATININE 1.2 mg/dL (0.7-1.3); GFR 75.5
[2016-12-11 05:35] LABS: POTASSIUM 2.8 mmol/L (3.5-5.1)
[2016-12-11] MEDS: HEPARIN PF for SUB-Q USE 5,000 UNIT/0.5 ML VIAL. SQ SCH ×3 (05:46→20:56)
[2016-12-11] MEDS ORDERED: POTASSIUM CHLORIDE 20 MEQ TABLET.ER. PO ONE ×2 (06:00→10:00)
[2016-12-11 07:00] VITALS: BP 152/87
[2016-12-11] MEDS: INSULIN ASPART 300 UNITS/3 ML INSULN.PEN SQ SCH ×6 (08:00→18:09)
[2016-12-11] MEDS: FAMOTIDINE 20 MG TABLET. PO SCH ×2 (09:12→21:12)
[2016-12-11] MEDS: FERROUS SULFATE 325 MG TABLET. PO SCH (09:12)
[2016-12-11] MEDS: LISINOPRIL 5 MG TABLET. PO SCH (09:13)
[2016-12-11] MEDS: ACETAMINOPHEN 325 MG TABLET. PO PRN ×3 (09:16→21:12)
--- NOTE | 2016-12-11 10:21 | PDOC ---
PROGRESS NOTES Chief Complaint Chief Complaint 1. seizure like activity, possible seizure 2. acute metabolic encephalopathy, prior CVA, gen weakness and debility 2. dm2, uncontrolled, 4. uncompliance meds 5. htn 6. TE, vasomotor 7. bl leg BKA with wound, peripheral vascular dz 8. possible baseline mild dementia History of Present Illness History of Present Illness neuro consult and wound consult severe malnutriton, he reports still hungry after breakfast, Nutrition supps and consult. will double portion meals would likely benefit from skilled or rehab ivf, may DC, replace K+, give mag ptot ativan prn fall precaution Vitals Vitals Vital Signs Date Time Temp Pulse Resp B/P Pulse Ox O2 Delivery O2 Flow Rate FiO2 12/11/16 09:13 75 152/87 12/11/16 07:00 98.4 16 99 Room Air 98.4 Physical Exam General: Alert, Oriented X3, Cooperative, No acute distress Heart: Regular rate, No murmurs Lungs: Clear Abdomen: Normal bowel sounds, Soft Extremities: No clubbing, No cyanosis Skin: No rashes, No breakdown Labs LABS Laboratory Tests Test 12/10/16 11:00 12/10/16 11:47 12/10/16 16:23 12/10/16 20:59 Nasal Screen MRSA (PCR) Positive (Negative) Glucose (Fingerstick) 361mg/dL (70-99) 346mg/dL (70-99) 286mg/dL (70-99) Test 12/11/16 03:01 12/11/16 07:14 White Blood Count 6.9x10^3/uL (4.0-11.0) Red Blood Count 2.88x10^6/uL (4.30-5.70) Hemoglobin 8.8g/dL (13.0-17.5) Hematocrit 25.2% (39.0-53.0) Mean Corpuscular Volume 88fL (79-100) Mean Corpuscular Hemoglobin 30pg (25-35) Mean Corpuscular Hemoglobin Concent 35g/dL (31-37) Red Cell Distribution Width 16.5% (11.5-14.5) Platelet Count 184x10^3/uL (140-400) Neutrophils (%) (Auto) 54% (31-73) Lymphocytes (%) (Auto) 39% (24-48) Monocytes (%) (Auto) 5% (0-9) Eosinophils (%) (Auto) 1% (0-3) Basophils (%) (Auto) 0% (0-3) Neutrophils # (Auto) 3.7x10^3uL (1.8-7.7) Lymphocytes # (Auto) 2.7x10^3/uL (1.0-4.8) Monocytes # (Auto) 0.3x10^3/uL (0.0-1.1) Eosinophils # (Auto) 0.1x10^3/uL (0.0-0.7) Basophils # (Auto) 0.0x10^3/uL (0.0-0.2) Sodium Level 140mmol/L (136-145) Potassium Level 2.8mmol/L (3.5-5.1) Chloride Level 107mmol/L (98-107) Carbon Dioxide Level 25mmol/L (21-32) Anion Gap 8 (6-14) Blood Urea Nitrogen 26mg/dL (8-26) Creatinine 1.2mg/dL (0.7-1.3) Estimated GFR (Cockcroft-Gault) 75.5 Glucose Level 217mg/dL (70-99) Calcium Level 7.6mg/dL (8.5-10.1) Glucose (Fingerstick) 131mg/dL (70-99) Review of Systems Review of Systems no n.vd. Assessment and Plan Assessmemt and Plan Problems Medical Problems: (1) Altered mental status Status: Acute (2) Seizure-like activity Status: Acute (3) Uncontrolled diabetes mellitus Status: Acute Problems: Comment Review of Relevant I have reviewed the following items yobani (where applicable) has been applied. Labs Laboratory Tests Test 12/10/16 08:40 12/10/16 09:05 12/10/16 09:23 12/10/16 09:53 White Blood Count 7.4x10^3/uL (4.0-11.0) Red Blood Count 3.52x10^6/uL (4.30-5.70) Hemoglobin 10.7g/dL (13.0-17.5) Hematocrit 30.6% (39.0-53.0) Mean Corpuscular Volume 87fL (79-100) Mean Corpuscular Hemoglobin 30pg (25-35) Mean Corpuscular Hemoglobin Concent 35g/dL (31-37) Red Cell Distribution Width 15.8% (11.5-14.5) Platelet Count 211x10^3/uL (140-400) Neutrophils (%) (Auto) 66% (31-73) Lymphocytes (%) (Auto) 27% (24-48) Monocytes (%) (Auto) 5% (0-9) Eosinophils (%) (Auto) 2% (0-3) Basophils (%) (Auto) 0% (0-3) Neutrophils # (Auto) 4.9x10^3uL (1.8-7.7) Lymphocytes # (Auto) 2.0x10^3/uL (1.0-4.8) Monocytes # (Auto) 0.4x10^3/uL (0.0-1.1) Eosinophils # (Auto) 0.1x10^3/uL (0.0-0.7) Basophils # (Auto) 0.0x10^3/uL (0.0-0.2) Sodium Level 139mmol/L (136-145) Potassium Level 3.7mmol/L (3.5-5.1) Chloride Level 103mmol/L (98-107) Carbon Dioxide Level 27mmol/L (21-32) Anion Gap 9 (6-14) Blood Urea Nitrogen 32mg/dL (8-26) Creatinine 1.5mg/dL (0.7-1.3) Estimated GFR (Cockcroft-Gault) 58.4 BUN/Creatinine Ratio 21 (6-20) Glucose Level 594mg/dL (70-99) Calcium Level 9.1mg/dL (8.5-10.1) Total Bilirubin 0.3mg/dL (0.2-1.0) Aspartate Amino Transf (AST/SGOT) 30U/L (15-37) Alanine Aminotransferase (ALT/SGPT) 27U/L (16-63) Alkaline Phosphatase 145U/L (46-116) Creatine Kinase 103U/L (39-308) Creatine Kinase MB (Mass) 3.3ng/mL (0.0-3.6) Creatine Kinase MB Relative Index 3.2% (0-4) Troponin I Quantitative < 0.017ng/mL (0.000-0.055) Total Protein 8.0g/dL (6.4-8.2) Albumin 1.6g/dL (3.4-5.0) Albumin/Globulin Ratio 0.3 (1.0-1.7) Lactic Acid Level 1.5mmol/L (0.4-2.0) Glucose (Fingerstick) 519mg/dL (70-99) Urine Collection Type Unknown Urine Color Yellow Urine Clarity Clear Urine pH 7.0 Urine Specific [place] 1.015 Urine Protein 100mg/dL (NEG-TRACE) Urine Glucose (UA) >=1000mg/dL (NEG) Urine Ketones (Stick) Tracemg/dL (NEG) Urine Blood Small (NEG) Urine Nitrite Negative (NEG) Urine Bilirubin Negative (NEG) Urine Urobilinogen Dipstick 0.2mg/dL (0.2 mg/dL) Urine Leukocyte Esterase Negative (NEG) Urine RBC 6-10/HPF (0-2) Urine WBC 0/HPF (0-4) Urine Bacteria 0/HPF (0-FEW) Urine Opiates Screen Neg (NEG) Urine Methadone Screen Neg (NEG) Urine Barbiturates Neg (NEG) Urine Phencyclidine Screen Neg (NEG) Urine Amphetamine/Methamphetamine Neg (NEG) Urine Benzodiazepines Screen Neg (NEG) Urine Cocaine Screen Neg (NEG) Urine Cannabinoids Screen Neg (NEG) Urine Ethyl Alcohol Neg (NEG) Test 12/10/16 11:00 12/10/16 11:47 12/10/16 16:23 12/10/16 20:59 Nasal Screen MRSA (PCR) Positive (Negative) Glucose (Fingerstick) 361mg/dL (70-99) 346mg/dL (70-99) 286mg/dL (70-99) Test 12/11/16 03:01 12/11/16 07:14 White Blood Count 6.9x10^3/uL (4.0-11.0) Red Blood Count 2.88x10^6/uL (4.30-5.70) Hemoglobin 8.8g/dL (13.0-17.5) Hematocrit 25.2% (39.0-53.0) Mean Corpuscular Volume 88fL (79-100) Mean Corpuscular Hemoglobin 30pg (25-35) Mean Corpuscular Hemoglobin Concent 35g/dL (31-37) Red Cell Distribution Width 16.5% (11.5-14.5) Platelet Count 184x10^3/uL (140-400) Neutrophils (%) (Auto) 54% (31-73) Lymphocytes (%) (Auto) 39% (24-48) Monocytes (%) (Auto) 5% (0-9) Eosinophils (%) (Auto) 1% (0-3) Basophils (%) (Auto) 0% (0-3) Neutrophils # (Auto) 3.7x10^3uL (1.8-7.7) Lymphocytes # (Auto) 2.7x10^3/uL (1.0-4.8) Monocytes # (Auto) 0.3x10^3/uL (0.0-1.1) Eosinophils # (Auto) 0.1x10^3/uL (0.0-0.7) Basophils # (Auto) 0.0x10^3/uL (0.0-0.2) Sodium Level 140mmol/L (136-145) Potassium Level 2.8mmol/L (3.5-5.1) Chloride Level 107mmol/L (98-107) Carbon Dioxide Level 25mmol/L (21-32) Anion Gap 8 (6-14) Blood Urea Nitrogen 26mg/dL (8-26) Creatinine 1.2mg/dL (0.7-1.3) Estimated GFR (Cockcroft-Gault) 75.5 Glucose Level 217mg/dL (70-99) Calcium Level 7.6mg/dL (8.5-10.1) Glucose (Fingerstick) 131mg/dL (70-99) Laboratory Tests Test 12/10/16 11:00 12/10/16 11:47 12/10/16 16:23 12/10/16 20:59 Nasal Screen MRSA (PCR) Positive (Negative) Glucose (Fingerstick) 361mg/dL (70-99) 346mg/dL (70-99) 286mg/dL (70-99) Test 12/11/16 03:01 12/11/16 07:14 White Blood Count 6.9x10^3/uL (4.0-11.0) Red Blood Count 2.88x10^6/uL (4.30-5.70) Hemoglobin 8.8g/dL (13.0-17.5) Hematocrit 25.2% (39.0-53.0) Mean Corpuscular Volume 88fL (79-100) Mean Corpuscular Hemoglobin 30pg (25-35) Mean Corpuscular Hemoglobin Concent 35g/dL (31-37) Red Cell Distribution Width 16.5% (11.5-14.5) Platelet Count 184x10^3/uL (140-400) Neutrophils (%) (Auto) 54% (31-73) Lymphocytes (%) (Auto) 39% (24-48) Monocytes (%) (Auto) 5% (0-9) Eosinophils (%) (Auto) 1% (0-3) Basophils (%) (Auto) 0% (0-3) Neutrophils # (Auto) 3.7x10^3uL (1.8-7.7) Lymphocytes # (Auto) 2.7x10^3/uL (1.0-4.8) Monocytes # (Auto) 0.3x10^3/uL (0.0-1.1) Eosinophils # (Auto) 0.1x10^3/uL (0.0-0.7) Basophils # (Auto) 0.0x10^3/uL (0.0-0.2) Sodium Level 140mmol/L (136-145) Potassium Level 2.8mmol/L (3.5-5.1) Chloride Level 107mmol/L (98-107) Carbon Dioxide Level 25mmol/L (21-32) Anion Gap 8 (6-14) Blood Urea Nitrogen 26mg/dL (8-26) Creatinine 1.2mg/dL (0.7-1.3) Estimated GFR (Cockcroft-Gault) 75.5 Glucose Level 217mg/dL (70-99) Calcium Level 7.6mg/dL (8.5-10.1) Glucose (Fingerstick) 131mg/dL (70-99) Microbiology 12/10/16 Blood Culture - Preliminary, Resulted NO GROWTH AFTER 1 DAY Medications Current Medications Sodium Chloride (Iv Sodium Chloride 0.9% 1000ml Bag) 1,000 ml @ 1,000 mls/hr 1X ONCE IV Last administered on 12/10/16 08:47; Start 12/10/16 at 08:45; Stop 12/10/16 at 09:44; Status DC Insulin Human Regular 10 unit 10 unit 1X ONCE IV Last administered on 09:32; Start 12/10/16 at 08:45; Stop 12/10/16 at 08:46; Status DC Sodium Chloride (Iv Sodium Chloride 0.9% 1000ml Bag) 1,000 ml @ 125 mls/hr Q8H IV Last administered on 12/10/16 22:58; Start 12/10/16 at 09:59; Stop at 09:58; Status DC Labetalol HCl (Normodyne) 10 mg 1X ONCE IVP Last administered on 12/10/16 10: 13; Start 12/10/16 at 10:15; Stop 12/10/16 at 10:16; Status DC Insulin Aspart (Novolog) 10 units 1X ONCE SQ Last administered on 12/10/16 12 :13; Start 12/10/16 at 12:30; Stop 12/10/16 at 12:31; Status DC Insulin Aspart (Novolog) 0-9 UNITS TIDWMEALS SQ Last administered on 12/10/16 16:56; Start 12/10/16 at 12:00 Dextrose (Dextrose 50%-Water Syringe) 12.5 gm PRN Q15MIN PRN IV SEE COMMENTS; Start 12/10/16 at 12:00 Famotidine (Pepcid) 20 mg BID PO Last administered on 12/11/16 09:12; Start at 21:00 Ferrous Sulfate (Feosol) 325 mg DAILY PO Last administered on 12/11/16 09:12; Start 12/11/16 at 09:00 Acetaminophen/ Hydrocodone Bitart (Lortab 5/325) 1 tab PRN Q6HRS PRN PO PAIN; Start 12/10/16 at 15:00 Lisinopril (Prinivil) 10 mg DAILY PO ; Start 12/10/16 at 15:00; Status Cancel Tramadol HCl (Ultram) 50 mg PRN Q6HRS PRN PO PAIN; Start 12/10/16 at 15:00 Lisinopril (Prinivil) 5 mg DAILY PO Last administered on 12/11/16 09:13; Start 12/10/16 at 15:00 Insulin Detemir (Levemir) 20 units QHS SQ Last administered on 12/10/16 21:43 ; Start 12/10/16 at 21:00 Insulin Aspart (Novolog) 6 units TIDAC SQ Last administered on 12/11/16 09:26 ; Start 12/10/16 at 16:30 Acetaminophen (Tylenol) 650 mg PRN Q6HRS PRN PO FEVER Last administered on 12/11 09:16; Start 12/10/16 at 15:00 Ondansetron HCl (Zofran) 4 mg PRN Q6HRS PRN IV NAUSEA/VOMITING; Start 12/10/16 at 15:00 Hydralazine HCl (Apresoline) 10 mg PRN Q4HRS PRN IVP ELEVATED BP, SEE COMMENTS ; Start 12/10/16 at 15:00 Heparin Sodium (Porcine) 5,000 unit Q8HRS SQ Last administered on 12/10/16 21: 43; Start 12/10/16 at 22:00 Lorazepam (Ativan) 2 mg PRN Q4HRS PRN IV ANXIETY / AGITATION; Start 12/10/16 at 15:00 Potassium Chloride (Klor-Con) 40 meq 1X ONCE PO Last administered on 06:00; Start 12/11/16 at 06:00; Stop 12/11/16 at 06:01; Status DC Potassium Chloride (Klor-Con) 40 meq 1X ONCE PO Last administered on 09:12; Start 12/11/16 at 10:00; Stop 12/11/16 at 10:01; Status DC Potassium Chloride 20 meq 20 meq [id number] PO ; Start 12/11/16 at 10:00 Magnesium Sulfate/ Dextrose (Magnesium Sulfate PREMIX 2GM) 50 ml @ 25 mls/hr 1X ONCE IV ; Start 12/11/16 at 10:30; Stop 12/11/16 at 12:29 Active Scripts Active Reported Piperacil-Tazobact 3.375 Gm Vl (Piperacillin Sodium/Tazobactam) 3.375 Gm Vial 3.375 Gm IV Q6HRS Ferrous Sulfate 325 Mg Tablet 300 Mg PO DAILY Tramadol Hcl 50 Mg Tablet 1 Tab PO PRN Q6HRS PRN Silver Nitrate Applicator 1 Each Stick..ea. 1 Each TP Famotidine 20 Mg Tablet 20 Mg PO BID Lisinopril 5 Mg Tablet 1 Tab PO DAILY Hydrocodone-Apap 5-325 (Hydrocodone Bit/Acetaminophen) 1 Each Tablet 1 Tab PO PRN Q6HRS PRN Lovenox (Enoxaparin Sodium) 40 Mg/0.4 Ml Disp.syrin 0.4 Ml SQ DAILY Humulin R (Insulin Regular, Human) 100 Unit/1 Ml Vial 7 Unit IJ TID Lantus Solostar (Insulin Glargine,Hum.rec.anlog) 100 Unit/1 Ml Insuln.pen 35 Unit SQ QHS Vitals/I & O Vital Sign - Last 24 Hours 12/10/16 12/10/16 12/10/16 12/10/16 10:21 11:30 11:38 14:30 Temp 97.8 98.8 97.8 98.8 Pulse 78 75 79 Resp 13 20 B/P 139/72 162/87 156/81 Pulse Ox 99 98 O2 Delivery Room Air Room Air Room Air 12/10/16 12/10/16 12/10/16 12/10/16 16:50 19:37 19:59 23:59 Temp 98.7 98.4 98.7 98.4 Pulse 79 84 78 Resp 20 20 B/P 156/81 137/80 157/83 Pulse Ox 97 98 O2 Delivery Room Air Room Air Room Air 12/11/16 12/11/16 07:00 09:13 Temp 98.4 98.4 Pulse 75 75 Resp 16 B/P 152/87 152/87 Pulse Ox 99 O2 Delivery Room Air Intake and Output 12/10/16 12/10/16 12/11/16 14:59 22:59 06:59 Intake Total 120 ml 240 ml Output Total 500 ml Balance 120 ml 240 ml -500 ml DOMENICA CHRISTIANSON MD Dec 11, 2016 10:21
[2016-12-11] MEDS ORDERED: MAGNESIUM SULFATE 2GM 50 ML IV ONE (10:30)
--- NOTE | 2016-12-11 10:38 | ACF ---
Admit Criteria Forms Admit Criteria Forms Admit Criteria Forms MENTAL STATUS CHANGE Clinical Indications for Inpatient Care (Place 'X' for any and all applicable criteria): Ongoing inpatient care may be needed for 1 or more of the following(1)(2)(3)(5)( 6): [X]I. Suspected serious etiology (eg, medical disorder, DRUM TENDER event) of altered mental status [ ]II. Danger to self or others not manageable at lower level of care [ ]III. Grave disability (eg, inability to perform self care necessary at lower level of care) [ ]IV. Agitation or inappropriate behavior interfering with care for primary condition (eg, attempting to discontinue lines or drains prematurely, unable to cooperate with respiratory care) [ ]V. Delirium [A] [D][E] as described by 1 or more of the following(26): [ ]a) Delirium due to alcohol or sedative [F] withdrawal [ ]b) Delirium of uncertain etiology that has not responded to appropriate empiric treatment [ ]c) Delirium that prevents performance of a life-sustaining function (eg, feeding or hydrating oneself) [ ]. General contraindications and/or Inappropriate clinical situations for Observational Care in patients with Mental Status Change, when ANY ONE of the following is required: [ ]a) Prediction of prolongation of LOS based on ANY ONE of the following may be considered as a contraindication for observational care 2, 3, 4, 5, 6, 7, 8, 9, 10, 11 [ ]i) Age > 65 yrs. [ ]ii) Patient arriving by ambulance [ ]iii) Patient with high acuity [ ]iv) Patient requiring vital sign monitoring [ ]v) Patient on IV medication [ ]b) Systolic blood pressures greater than or equal to 180mmHg 3, 12 [ ]c) Patient with altered mental status including delirium and other alteration of consciousness, (3) [ ]d) Patient whose discharge disposition will be to a nursing home home or rehabilitation home should not be managed in Emergency Department Observation Unit. CMS rule requires 3 days hospital stay before such placement.3,13 [ ]e) Patient with failure to thrive due to broad array of etiologies 3,16,17 [ ]f) Inability to ambulate 3,14 Extended stay beyond goal length of stay for the primary condition may be needed until ALL of the following are present(3)(5): [ ]a) Underlying medical etiology of mental status change is absent, or has been established and adequately treated [ ]b) Danger to self or others is absent or manageable at lower level of care. [ ]c) Behavior crisis management, including physical or chemical restraints, is not required or available at lower level of car [ ]d) Substance or alcohol withdrawal is absent or manageable at lower level of care. [ ]e) Behavioral symptoms (eg, agitation, somnolence, inappropriate behavior) are absent, or are manageable at lower level of care. The original [facility] content created by [facility] has been revised. The portions of the content which have been revised are identified through the use of italic text or in bold, and [facility] has neither reviewed nor approved the modified material. All other unmodified content is copyright [facility]. Please see references footnoted in the original [facility] edition 2016 BRENDA PARKER Dec 11, 2016 10:38
[2016-12-11 11:00] VITALS: BP 131/83
[2016-12-11] MEDS: POTASSIUM CHLORIDE 20 MEQ TABLET.ER. PO SCH (12:33)
[2016-12-11 14:48] VITALS: BP 131/83
--- NOTE | 2016-12-11 16:28 | PDOC2 ---
CONSULT Date of Consult Date of Consult DATE: 12/11/16 TIME: 16:24 Reason for Consult Reason for Consult: Possible seizure. History of Present Illness Reason for Visit: This patient is 56-year-old man who presented to emergency room with a possible seizure. Patient is a poor historian. Patient denies any history of season as he is not currently on any seizure medication. Patient did not have any any seizure episodes or similar spells in the emergency room or here in the hospital during hospital stay. Left a message for patient's to get more information. Patient may have an episode of urinary incontinence and there was no history of any jerkiness in his extremity no tongue bite. Patient has bilateral below-knee amputations. He had a CT scan done of the brain which showed atrophy. No acute intracranial processes. Past Medical History Cardiovascular: No pertinent hx Pulmonary: No pertinent hx CENTRAL NERVOUS SYSTEM: Other GI: No pertinent hx Heme/Onc: No pertinent hx Hepatobiliary: No pertinent hx Psych: No pertinent hx Musculoskeletal: Osteoarthritis Rheumatologic: No pertinent hx Infectious disease: No pertinent hx Renal/: No pertinent hx Endocrine: Diabetes Past Surgical History Past Surgical History: Appendectomy, Arthroscopy, Other Family History Family History: Coronary Artery Disease Social History No ALCOHOL: none Drugs: None Lives: with Family Current Problem List Problem List Problems Medical Problems: (1) Altered mental status Status: Acute (2) Seizure-like activity Status: Acute (3) Uncontrolled diabetes mellitus Status: Acute Current Medications Current Medications Current Medications Sodium Chloride (Iv Sodium Chloride 0.9% 1000ml Bag) 1,000 ml @ 1,000 mls/hr 1X ONCE IV Last administered on 12/10/16 08:47; Start 12/10/16 at 08:45; Stop 12/10/16 at 09:44; Status DC Insulin Human Regular 10 unit 10 unit 1X ONCE IV Last administered on 09:32; Start 12/10/16 at 08:45; Stop 12/10/16 at 08:46; Status DC Sodium Chloride (Iv Sodium Chloride 0.9% 1000ml Bag) 1,000 ml @ 125 mls/hr Q8H IV Last administered on 12/10/16 22:58; Start 12/10/16 at 09:59; Stop at 09:58; Status DC Labetalol HCl (Normodyne) 10 mg 1X ONCE IVP Last administered on 12/10/16 10: 13; Start 12/10/16 at 10:15; Stop 12/10/16 at 10:16; Status DC Insulin Aspart (Novolog) 10 units 1X ONCE SQ Last administered on 12/10/16 12 :13; Start 12/10/16 at 12:30; Stop 12/10/16 at 12:31; Status DC Insulin Aspart (Novolog) 0-9 UNITS TIDWMEALS SQ Last administered on 12/11/16 12:47; Start 12/10/16 at 12:00 Dextrose (Dextrose 50%-Water Syringe) 12.5 gm PRN Q15MIN PRN IV SEE COMMENTS; Start 12/10/16 at 12:00 Famotidine (Pepcid) 20 mg BID PO Last administered on 12/11/16 09:12; Start at 21:00 Ferrous Sulfate (Feosol) 325 mg DAILY PO Last administered on 12/11/16 09:12; Start 12/11/16 at 09:00 Acetaminophen/ Hydrocodone Bitart (Lortab 5/325) 1 tab PRN Q6HRS PRN PO PAIN; Start 12/10/16 at 15:00 Lisinopril (Prinivil) 10 mg DAILY PO ; Start 12/10/16 at 15:00; Status Cancel Tramadol HCl (Ultram) 50 mg PRN Q6HRS PRN PO PAIN; Start 12/10/16 at 15:00 Lisinopril (Prinivil) 5 mg DAILY PO Last administered on 12/11/16 09:13; Start 12/10/16 at 15:00 Insulin Detemir (Levemir) 20 units QHS SQ Last administered on 12/10/16 21:43 ; Start 12/10/16 at 21:00 Insulin Aspart (Novolog) 6 units TIDAC SQ Last administered on 12/11/16 12:48 ; Start 12/10/16 at 16:30 Acetaminophen (Tylenol) 650 mg PRN Q6HRS PRN PO FEVER Last administered on 12/11 09:16; Start 12/10/16 at 15:00 Ondansetron HCl (Zofran) 4 mg PRN Q6HRS PRN IV NAUSEA/VOMITING; Start 12/10/16 at 15:00 Hydralazine HCl (Apresoline) 10 mg PRN Q4HRS PRN IVP ELEVATED BP, SEE COMMENTS ; Start 12/10/16 at 15:00 Heparin Sodium (Porcine) 5,000 unit Q8HRS SQ Last administered on 12/11/16 15: 25; Start 12/10/16 at 22:00 Lorazepam (Ativan) 2 mg PRN Q4HRS PRN IV ANXIETY / AGITATION; Start 12/10/16 at 15:00 Potassium Chloride (Klor-Con) 40 meq 1X ONCE PO Last administered on 06:00; Start 12/11/16 at 06:00; Stop 12/11/16 at 06:01; Status DC Potassium Chloride (Klor-Con) 40 meq 1X ONCE PO Last administered on 09:12; Start 12/11/16 at 10:00; Stop 12/11/16 at 10:01; Status DC Potassium Chloride 20 meq 20 meq DAILYWBKFT PO Last administered on 12/11/16 12:33; Start 12/11/16 at 10:00 Magnesium Sulfate/ Dextrose (Magnesium Sulfate PREMIX 2GM) 50 ml @ 25 mls/hr 1X ONCE IV Last administered on 12/11/16 12:33; Start 12/11/16 at 10:30; Stop 12/11/16 at 12:29; Status DC Active Scripts Active Reported Piperacil-Tazobact 3.375 Gm Vl (Piperacillin Sodium/Tazobactam) 3.375 Gm Vial 3.375 Gm IV Q6HRS Ferrous Sulfate 325 Mg Tablet 300 Mg PO DAILY Tramadol Hcl 50 Mg Tablet 1 Tab PO PRN Q6HRS PRN Silver Nitrate Applicator 1 Each Stick..ea. 1 Each TP Famotidine 20 Mg Tablet 20 Mg PO BID Lisinopril 5 Mg Tablet 1 Tab PO DAILY Hydrocodone-Apap 5-325 (Hydrocodone Bit/Acetaminophen) 1 Each Tablet 1 Tab PO PRN Q6HRS PRN Lovenox (Enoxaparin Sodium) 40 Mg/0.4 Ml Disp.syrin 0.4 Ml SQ DAILY Humulin R (Insulin Regular, Human) 100 Unit/1 Ml Vial 7 Unit IJ TID Lantus Solostar (Insulin Glargine,Hum.rec.anlog) 100 Unit/1 Ml Insuln.pen 35 Unit SQ QHS Allergies Allergies: Coded Allergies: aspirin (Verified Allergy, Intermediate, Nausea and Vomiting, 09/29/16) gi bleeding also I S O L A T I O N *CONTACT* (Verified Allergy, Unknown, 09/29/16) mrsa No Known Medication Allergies (Verified Allergy, Unknown, 09/29/16) Physical Exam Physical Exam REVIEW OF SYSTEMS: Otherwise, not [id number] review of systems. PHYSICAL EXAMINATION: General appearance is in acute distress. HEENT: Normocephalic and nontraumatic. Eyes, nose, ears, and throat are unremarkable. Neck is supple. No lymphadenopathy. No crepitus. Cardiovascular: S1, S2, regular rate and rhythm. Pulmonary: Clear to auscultation bilaterally. Abdomen: Bowel sounds are positive. Abdomen is soft, nontender, and nondistended. NEUROLOGICAL EXAMINATION: Alert Oriented to time, place and person.cognitive impairment PERRL. EOMI. CN: no focal findings. Muscle tone: within normal. Muscle strength:good in upper exts lower below knee amps DTR: 1- 2 Gait: not examined in bed. Sensory exam: normal to light touch.. No obvious cerebellar signs elicited. Vitals VITALS Vital Signs Date Time Temp Pulse Resp B/P Pulse Ox O2 Delivery O2 Flow Rate FiO2 12/11/16 14:48 100.6 83 20 131/83 99 Room Air 100.6 Labs Labs Laboratory Tests Test 12/10/16 08:40 12/10/16 09:05 12/10/16 09:23 12/10/16 09:53 White Blood Count 7.4x10^3/uL (4.0-11.0) Red Blood Count 3.52x10^6/uL (4.30-5.70) Hemoglobin 10.7g/dL (13.0-17.5) Hematocrit 30.6% (39.0-53.0) Mean Corpuscular Volume 87fL (79-100) Mean Corpuscular Hemoglobin 30pg (25-35) Mean Corpuscular Hemoglobin Concent 35g/dL (31-37) Red Cell Distribution Width 15.8% (11.5-14.5) Platelet Count 211x10^3/uL (140-400) Neutrophils (%) (Auto) 66% (31-73) Lymphocytes (%) (Auto) 27% (24-48) Monocytes (%) (Auto) 5% (0-9) Eosinophils (%) (Auto) 2% (0-3) Basophils (%) (Auto) 0% (0-3) Neutrophils # (Auto) 4.9x10^3uL (1.8-7.7) Lymphocytes # (Auto) 2.0x10^3/uL (1.0-4.8) Monocytes # (Auto) 0.4x10^3/uL (0.0-1.1) Eosinophils # (Auto) 0.1x10^3/uL (0.0-0.7) Basophils # (Auto) 0.0x10^3/uL (0.0-0.2) Sodium Level 139mmol/L (136-145) Potassium Level 3.7mmol/L (3.5-5.1) Chloride Level 103mmol/L (98-107) Carbon Dioxide Level 27mmol/L (21-32) Anion Gap 9 (6-14) Blood Urea Nitrogen 32mg/dL (8-26) Creatinine 1.5mg/dL (0.7-1.3) Estimated GFR (Cockcroft-Gault) 58.4 BUN/Creatinine Ratio 21 (6-20) Glucose Level 594mg/dL (70-99) Calcium Level 9.1mg/dL (8.5-10.1) Total Bilirubin 0.3mg/dL (0.2-1.0) Aspartate Amino Transf (AST/SGOT) 30U/L (15-37) Alanine Aminotransferase (ALT/SGPT) 27U/L (16-63) Alkaline Phosphatase 145U/L (46-116) Creatine Kinase 103U/L (39-308) Creatine Kinase MB (Mass) 3.3ng/mL (0.0-3.6) Creatine Kinase MB Relative Index 3.2% (0-4) Troponin I Quantitative < 0.017ng/mL (0.000-0.055) Total Protein 8.0g/dL (6.4-8.2) Albumin 1.6g/dL (3.4-5.0) Albumin/Globulin Ratio 0.3 (1.0-1.7) Lactic Acid Level 1.5mmol/L (0.4-2.0) Glucose (Fingerstick) 519mg/dL (70-99) Urine Collection Type Unknown Urine Color Yellow Urine Clarity Clear Urine pH 7.0 Urine Specific [place] 1.015 Urine Protein 100mg/dL (NEG-TRACE) Urine Glucose (UA) >=1000mg/dL (NEG) Urine Ketones (Stick) Tracemg/dL (NEG) Urine Blood Small (NEG) Urine Nitrite Negative (NEG) Urine Bilirubin Negative (NEG) Urine Urobilinogen Dipstick 0.2mg/dL (0.2 mg/dL) Urine Leukocyte Esterase Negative (NEG) Urine RBC 6-10/HPF (0-2) Urine WBC 0/HPF (0-4) Urine Bacteria 0/HPF (0-FEW) Urine Opiates Screen Neg (NEG) Urine Methadone Screen Neg (NEG) Urine Barbiturates Neg (NEG) Urine Phencyclidine Screen Neg (NEG) Urine Amphetamine/Methamphetamine Neg (NEG) Urine Benzodiazepines Screen Neg (NEG) Urine Cocaine Screen Neg (NEG) Urine Cannabinoids Screen Neg (NEG) Urine Ethyl Alcohol Neg (NEG) Test 12/10/16 11:00 12/10/16 11:47 12/10/16 16:23 12/10/16 20:59 Nasal Screen MRSA (PCR) Positive (Negative) Glucose (Fingerstick) 361mg/dL (70-99) 346mg/dL (70-99) 286mg/dL (70-99) Test 12/11/16 03:01 12/11/16 07:14 12/11/16 11:44 12/11/16 15:57 White Blood Count 6.9x10^3/uL (4.0-11.0) Red Blood Count 2.88x10^6/uL (4.30-5.70) Hemoglobin 8.8g/dL (13.0-17.5) Hematocrit 25.2% (39.0-53.0) Mean Corpuscular Volume 88fL (79-100) Mean Corpuscular Hemoglobin 30pg (25-35) Mean Corpuscular Hemoglobin Concent 35g/dL (31-37) Red Cell Distribution Width 16.5% (11.5-14.5) Platelet Count 184x10^3/uL (140-400) Neutrophils (%) (Auto) 54% (31-73) Lymphocytes (%) (Auto) 39% (24-48) Monocytes (%) (Auto) 5% (0-9) Eosinophils (%) (Auto) 1% (0-3) Basophils (%) (Auto) 0% (0-3) Neutrophils # (Auto) 3.7x10^3uL (1.8-7.7) Lymphocytes # (Auto) 2.7x10^3/uL (1.0-4.8) Monocytes # (Auto) 0.3x10^3/uL (0.0-1.1) Eosinophils # (Auto) 0.1x10^3/uL (0.0-0.7) Basophils # (Auto) 0.0x10^3/uL (0.0-0.2) Sodium Level 140mmol/L (136-145) Potassium Level 2.8mmol/L (3.5-5.1) Chloride Level 107mmol/L (98-107) Carbon Dioxide Level 25mmol/L (21-32) Anion Gap 8 (6-14) Blood Urea Nitrogen 26mg/dL (8-26) Creatinine 1.2mg/dL (0.7-1.3) Estimated GFR (Cockcroft-Gault) 75.5 Glucose Level 217mg/dL (70-99) Calcium Level 7.6mg/dL (8.5-10.1) Glucose (Fingerstick) 131mg/dL (70-99) 157mg/dL (70-99) 212mg/dL (70-99) Laboratory Tests Test 12/10/16 20:59 12/11/16 03:01 12/11/16 07:14 12/11/16 11:44 Glucose (Fingerstick) 286mg/dL (70-99) 131mg/dL (70-99) 157mg/dL (70-99) White Blood Count 6.9x10^3/uL (4.0-11.0) Red Blood Count 2.88x10^6/uL (4.30-5.70) Hemoglobin 8.8g/dL (13.0-17.5) Hematocrit 25.2% (39.0-53.0) Mean Corpuscular Volume 88fL (79-100) Mean Corpuscular Hemoglobin 30pg (25-35) Mean Corpuscular Hemoglobin Concent 35g/dL (31-37) Red Cell Distribution Width 16.5% (11.5-14.5) Platelet Count 184x10^3/uL (140-400) Neutrophils (%) (Auto) 54% (31-73) Lymphocytes (%) (Auto) 39% (24-48) Monocytes (%) (Auto) 5% (0-9) Eosinophils (%) (Auto) 1% (0-3) Basophils (%) (Auto) 0% (0-3) Neutrophils # (Auto) 3.7x10^3uL (1.8-7.7) Lymphocytes # (Auto) 2.7x10^3/uL (1.0-4.8) Monocytes # (Auto) 0.3x10^3/uL (0.0-1.1) Eosinophils # (Auto) 0.1x10^3/uL (0.0-0.7) Basophils # (Auto) 0.0x10^3/uL (0.0-0.2) Sodium Level 140mmol/L (136-145) Potassium Level 2.8mmol/L (3.5-5.1) Chloride Level 107mmol/L (98-107) Carbon Dioxide Level 25mmol/L (21-32) Anion Gap 8 (6-14) Blood Urea Nitrogen 26mg/dL (8-26) Creatinine 1.2mg/dL (0.7-1.3) Estimated GFR (Cockcroft-Gault) 75.5 Glucose Level 217mg/dL (70-99) Calcium Level 7.6mg/dL (8.5-10.1) Test 12/11/16 15:57 Glucose (Fingerstick) 212mg/dL (70-99) Assessment/Plan Assessment/Plan This patient is 56-year-old man who presented to emergency room with a possible seizure. Patient is a poor historian. Patient denies any history of season as he is not currently on any seizure medication. Patient did not have any any seizure episodes or similar spells in the emergency room or here in the hospital during hospital stay. Left a message for patient's to get more information. Patient may have an episode of urinary incontinence and there was no history of any jerkiness in his extremity no tongue bite. Patient has bilateral below-knee amputations. He had a CT scan done of the brain which showed atrophy. No acute intracranial processes. I discussed with patient in detail seizure precautions. I also recommended getting an MRI brain to further evaluate and EEG to rule out any subclinical seizures. Patient will like to get workup done as outpatient. If patient had any episodes of further seizure-like activity may meet criteria to start seizure medication will not start any seizure medications currently. Follow up in neurology clinic in 1-2 months. CUATE HERNANDEZ MD Dec 11, 2016 16:28
[2016-12-11 19:59] VITALS: BP 123/71
[2016-12-11] MEDS: INSULIN DETEMIR 300 UNITS/3 ML INSULN.PEN. SQ SCH (21:17)
[2016-12-11 23:56] VITALS: BP 148/75
[2016-12-12 03:59] VITALS: BP 165/87
[2016-12-12] MEDS: HEPARIN PF for SUB-Q USE 5,000 UNIT/0.5 ML VIAL. SQ SCH ×3 (06:00→21:15)
[2016-12-12 07:00] VITALS: BP 167/83
[2016-12-12] MEDS: FERROUS SULFATE 325 MG TABLET. PO SCH (08:23)
[2016-12-12] MEDS: LISINOPRIL 5 MG TABLET. PO SCH (08:23)
[2016-12-12] MEDS: POTASSIUM CHLORIDE 20 MEQ TABLET.ER. PO SCH (08:24)
[2016-12-12] MEDS: FAMOTIDINE 20 MG TABLET. PO SCH ×2 (08:24→21:07)
[2016-12-12] MEDS: INSULIN ASPART 300 UNITS/3 ML INSULN.PEN SQ SCH ×6 (08:34→17:26)
--- NOTE | 2016-12-12 10:37 | PDOC ---
PROGRESS NOTES Chief Complaint Chief Complaint 1. seizure like activity, no hx SZ in past 2. acute metabolic encephalopathy, prior CVA, gen weakness and debility - back to baseline 2. dm2, uncontrolled, 4. uncompliance meds 5. htn 6. TE, vasomotor 7. bl leg BKA with wound, peripheral vascular dz 8. possible baseline mild dementia History of Present Illness History of Present Illness No SZ since admit Watching tv Lives at home, bilateral amputee with stump wounds, none infected - has wound care at home Has HH at home PT recs SNU - he does not want SNU but his existing HH MEntating well. WOund care on board BS high Hgb a1c is 10 PLAN: Inc novolog to 10 TID Inc levemir to 30 qhs Cont wound care /pt /ot Ff upn euro 1 -2 mos Dc plans nella Vitals Vitals Vital Signs Date Time Temp Pulse Resp B/P Pulse Ox O2 Delivery O2 Flow Rate FiO2 12/12/16 08:23 78 167/83 12/12/16 07:00 97.9 20 97 Room Air 97.9 Physical Exam General: Alert, Oriented X3, Cooperative, No acute distress Heart: Regular rate, No murmurs Lungs: Clear Abdomen: Normal bowel sounds, Soft Extremities: No clubbing, No cyanosis Skin: No rashes, No breakdown Labs LABS Laboratory Tests Test 12/11/16 11:44 12/11/16 15:57 12/11/16 20:48 12/12/16 08:00 Glucose (Fingerstick) 157mg/dL (70-99) 212mg/dL (70-99) 294mg/dL (70-99) 313mg/dL (70-99) Review of Systems Review of Systems neg 14 pt Assessment and Plan Assessmemt and Plan Problems Medical Problems: (1) Altered mental status Status: Acute (2) Seizure-like activity Status: Acute (3) Uncontrolled diabetes mellitus Status: Acute Problems: Comment Review of Relevant I have reviewed the following items yobani (where applicable) has been applied. Labs Laboratory Tests Test 12/10/16 11:00 12/10/16 11:47 12/10/16 16:23 12/10/16 20:59 Nasal Screen MRSA (PCR) Positive (Negative) Glucose (Fingerstick) 361mg/dL (70-99) 346mg/dL (70-99) 286mg/dL (70-99) Test 12/11/16 03:01 12/11/16 07:14 12/11/16 11:44 12/11/16 15:57 White Blood Count 6.9x10^3/uL (4.0-11.0) Red Blood Count 2.88x10^6/uL (4.30-5.70) Hemoglobin 8.8g/dL (13.0-17.5) Hematocrit 25.2% (39.0-53.0) Mean Corpuscular Volume 88fL (79-100) Mean Corpuscular Hemoglobin 30pg (25-35) Mean Corpuscular Hemoglobin Concent 35g/dL (31-37) Red Cell Distribution Width 16.5% (11.5-14.5) Platelet Count 184x10^3/uL (140-400) Neutrophils (%) (Auto) 54% (31-73) Lymphocytes (%) (Auto) 39% (24-48) Monocytes (%) (Auto) 5% (0-9) Eosinophils (%) (Auto) 1% (0-3) Basophils (%) (Auto) 0% (0-3) Neutrophils # (Auto) 3.7x10^3uL (1.8-7.7) Lymphocytes # (Auto) 2.7x10^3/uL (1.0-4.8) Monocytes # (Auto) 0.3x10^3/uL (0.0-1.1) Eosinophils # (Auto) 0.1x10^3/uL (0.0-0.7) Basophils # (Auto) 0.0x10^3/uL (0.0-0.2) Sodium Level 140mmol/L (136-145) Potassium Level 2.8mmol/L (3.5-5.1) Chloride Level 107mmol/L (98-107) Carbon Dioxide Level 25mmol/L (21-32) Anion Gap 8 (6-14) Blood Urea Nitrogen 26mg/dL (8-26) Creatinine 1.2mg/dL (0.7-1.3) Estimated GFR (Cockcroft-Gault) 75.5 Glucose Level 217mg/dL (70-99) Hemoglobin A1c 10.6% (4.8-5.6) Calcium Level 7.6mg/dL (8.5-10.1) Glucose (Fingerstick) 131mg/dL (70-99) 157mg/dL (70-99) 212mg/dL (70-99) Test 12/11/16 20:48 12/12/16 08:00 Glucose (Fingerstick) 294mg/dL (70-99) 313mg/dL (70-99) Laboratory Tests Test 12/11/16 11:44 12/11/16 15:57 12/11/16 20:48 12/12/16 08:00 Glucose (Fingerstick) 157mg/dL (70-99) 212mg/dL (70-99) 294mg/dL (70-99) 313mg/dL (70-99) Microbiology 12/10/16 Blood Culture - Preliminary, Resulted NO GROWTH AFTER 2 DAYS Medications Current Medications Sodium Chloride (Iv Sodium Chloride 0.9% 1000ml Bag) 1,000 ml @ 1,000 mls/hr 1X ONCE IV Last administered on 12/10/16 08:47; Start 12/10/16 at 08:45; Stop 12/10/16 at 09:44; Status DC Insulin Human Regular 10 unit 10 unit 1X ONCE IV Last administered on 09:32; Start 12/10/16 at 08:45; Stop 12/10/16 at 08:46; Status DC Sodium Chloride (Iv Sodium Chloride 0.9% 1000ml Bag) 1,000 ml @ 125 mls/hr Q8H IV Last administered on 12/10/16 22:58; Start 12/10/16 at 09:59; Stop at 09:58; Status DC Labetalol HCl (Normodyne) 10 mg 1X ONCE IVP Last administered on 12/10/16 10: 13; Start 12/10/16 at 10:15; Stop 12/10/16 at 10:16; Status DC Insulin Aspart (Novolog) 10 units 1X ONCE SQ Last administered on 12/10/16 12 :13; Start 12/10/16 at 12:30; Stop 12/10/16 at 12:31; Status DC Insulin Aspart (Novolog) 0-9 UNITS TIDWMEALS SQ Last administered on 12/12/16 08:35; Start 12/10/16 at 12:00 Dextrose (Dextrose 50%-Water Syringe) 12.5 gm PRN Q15MIN PRN IV SEE COMMENTS; Start 12/10/16 at 12:00 Famotidine (Pepcid) 20 mg BID PO Last administered on 12/12/16 08:24; Start at 21:00 Ferrous Sulfate (Feosol) 325 mg DAILY PO Last administered on 12/12/16 08:23; Start 12/11/16 at 09:00 Acetaminophen/ Hydrocodone Bitart (Lortab 5/325) 1 tab PRN Q6HRS PRN PO PAIN; Start 12/10/16 at 15:00 Lisinopril (Prinivil) 10 mg DAILY PO ; Start 12/10/16 at 15:00; Status Cancel Tramadol HCl (Ultram) 50 mg PRN Q6HRS PRN PO PAIN; Start 12/10/16 at 15:00 Lisinopril (Prinivil) 5 mg DAILY PO Last administered on 12/12/16 08:23; Start 12/10/16 at 15:00 Insulin Detemir (Levemir) 20 units QHS SQ Last administered on 12/11/16 21:17 ; Start 12/10/16 at 21:00; Stop 12/12/16 at 09:11; Status DC Insulin Aspart (Novolog) 6 units TIDAC SQ Last administered on 12/12/16 08:34 ; Start 12/10/16 at 16:30; Stop 12/12/16 at 09:11; Status DC Acetaminophen (Tylenol) 650 mg PRN Q6HRS PRN PO FEVER Last administered on 12/11 21:12; Start 12/10/16 at 15:00 Ondansetron HCl (Zofran) 4 mg PRN Q6HRS PRN IV NAUSEA/VOMITING; Start 12/10/16 at 15:00 Hydralazine HCl (Apresoline) 10 mg PRN Q4HRS PRN IVP ELEVATED BP, SEE COMMENTS ; Start 12/10/16 at 15:00 Heparin Sodium (Porcine) 5,000 unit Q8HRS SQ Last administered on 12/11/16 15: 25; Start 12/10/16 at 22:00 Lorazepam (Ativan) 2 mg PRN Q4HRS PRN IV ANXIETY / AGITATION; Start 12/10/16 at 15:00 Potassium Chloride (Klor-Con) 40 meq 1X ONCE PO Last administered on 06:00; Start 12/11/16 at 06:00; Stop 12/11/16 at 06:01; Status DC Potassium Chloride (Klor-Con) 40 meq 1X ONCE PO Last administered on 09:12; Start 12/11/16 at 10:00; Stop 12/11/16 at 10:01; Status DC Potassium Chloride 20 meq 20 meq DAILYWBKFT PO Last administered on 12/12/16 08:24; Start 12/11/16 at 10:00 Magnesium Sulfate/ Dextrose (Magnesium Sulfate PREMIX 2GM) 50 ml @ 25 mls/hr 1X ONCE IV Last administered on 12/11/16 12:33; Start 12/11/16 at 10:30; Stop 12/11/16 at 12:29; Status DC Insulin Aspart (Novolog) 10 units TIDAC SQ ; Start 12/12/16 at 11:30 Insulin Detemir (Levemir) 30 units QHS SQ ; Start 12/12/16 at 21:00 Mupirocin (Bactroban) 1 vincent BID NS ; Start 12/12/16 at 09:15 Active Scripts Active Reported Piperacil-Tazobact 3.375 Gm Vl (Piperacillin Sodium/Tazobactam) 3.375 Gm Vial 3.375 Gm IV Q6HRS Ferrous Sulfate 325 Mg Tablet 300 Mg PO DAILY Tramadol Hcl 50 Mg Tablet 1 Tab PO PRN Q6HRS PRN Silver Nitrate Applicator 1 Each Stick..ea. 1 Each TP Famotidine 20 Mg Tablet 20 Mg PO BID Lisinopril 5 Mg Tablet 1 Tab PO DAILY Hydrocodone-Apap 5-325 (Hydrocodone Bit/Acetaminophen) 1 Each Tablet 1 Tab PO PRN Q6HRS PRN Lovenox (Enoxaparin Sodium) 40 Mg/0.4 Ml Disp.syrin 0.4 Ml SQ DAILY Humulin R (Insulin Regular, Human) 100 Unit/1 Ml Vial 7 Unit IJ TID Lantus Solostar (Insulin Glargine,Hum.rec.anlog) 100 Unit/1 Ml Insuln.pen 35 Unit SQ QHS Vitals/I & O Vital Sign - Last 24 Hours 12/11/16 12/11/16 12/11/16 12/11/16 11:00 14:48 19:59 20:00 Temp 98.1 100.6 100.2 98.1 100.6 100.2 Pulse 84 83 79 Resp 16 20 20 B/P 131/83 131/83 123/71 Pulse Ox 99 99 96 O2 Delivery Room Air Room Air Room Air Room Air 12/11/16 12/12/16 12/12/16 12/12/16 23:56 03:59 07:00 08:23 Temp 100.0 98.4 97.9 100.0 98.4 97.9 Pulse 80 77 78 78 Resp 18 20 B/P 148/75 165/87 167/83 167/83 Pulse Ox 97 94 97 O2 Delivery Room Air Room Air Room Air Intake and Output 12/11/16 12/11/16 12/12/16 15:00 23:00 07:00 Intake Total 800 ml Output Total 410 ml 2 ml 600 ml Balance -410 ml -2 ml 200 ml ROSAURA DILLARD MD Dec 12, 2016 10:37
[2016-12-12 11:00] VITALS: BP 148/87
[2016-12-12] MEDS: MUPIROCIN 2 % NASAL OINTMENT 22GM TUBE. NS SCH ×2 (12:00→21:07)
[2016-12-12 14:41] VITALS: BP 138/86
[2016-12-12 19:00] VITALS: BP 154/94
[2016-12-12] MEDS: INSULIN DETEMIR 300 UNITS/3 ML INSULN.PEN. SQ SCH (21:15)
[2016-12-12 22:43] VITALS: BP 157/96
[2016-12-13] VITALS (7 sets, daily range): BP systolic 148–179; BP diastolic 86–99
[2016-12-13] MEDS: HEPARIN PF for SUB-Q USE 5,000 UNIT/0.5 ML VIAL. SQ SCH ×3 (05:40→21:43)
[2016-12-13] MEDS: INSULIN ASPART 300 UNITS/3 ML INSULN.PEN SQ SCH ×6 (07:30→17:26)
[2016-12-13] MEDS: LISINOPRIL 5 MG TABLET. PO SCH (08:07)
[2016-12-13] MEDS: FERROUS SULFATE 325 MG TABLET. PO SCH (08:07)
[2016-12-13] MEDS: MUPIROCIN 2 % NASAL OINTMENT 22GM TUBE. NS SCH ×2 (08:08→21:00)
[2016-12-13] MEDS: FAMOTIDINE 20 MG TABLET. PO SCH ×2 (08:08→21:43)
[2016-12-13] MEDS: POTASSIUM CHLORIDE 20 MEQ TABLET.ER. PO SCH (08:08)
--- NOTE | 2016-12-13 14:23 | RAD ---
PROCEDURE Brain MRI without contrast. HISTORY Seizure. TECHNIQUE Multiplanar and multisequence magnetic resonance in the brain was performed without contrast. COMPARISON CT dated 12/10/2016. FINDINGS There are two small foci of restricted diffusion within the right temporal lobe cortex and periventricular white matter, likely due to acute or subacute infarcts. There is also a small focus of slight increased signal on diffusion-weighted images within the left frontoparietal junction of the vertex, also likely due to a subacute infarct. There is no mass effect or midline shift. There is moderate ventricular enlargement, likely due to cerebral volume loss. There is a chronic lacunar infarct within the left basal ganglia. There are scattered foci of signal change throughout the cerebral white matter, likely due to chronic small vessel disease. There are suspected chronic cortical infarct within the bilateral occipital lobes. There is T2/FLAIR hyperintensity within the central lucero. The orbits are unremarkable. There is mild paranasal sinus mucosal thickening. There is a small amount of fluid within the mastoid air cells. There are normal flow voids within the cerebral vessels. IMPRESSION 1. Suspected small acute or subacute infarct within the right temporal lobe cortex and periventricular white matter and suspected small subacute infarct within the left frontoparietal junction at the vertex. 2. Scattered areas of signal change within the cerebral white matter, likely due to chronic small vessel disease. 3. 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 4. Moderate ventricular enlargement, likely due to cerebral atrophy. This is not clearly greater than expected for cerebral volume to suggest normal pressure hydrocephalus. 5. T2/FLAIR hyperintensity within the central lucero, a nonspecific finding. This may be due to chronic small vessel disease. However, the possibility of central pontine myelinolysis can be considered in the appropriate clinical setting. Findings were discussed with Francheska, the nurse caring for the patient,at 1420 hours on 12/13/2016. Electronically signed by: Patricia Ceja (Dec 13, 2016 14:22:55)
--- NOTE | 2016-12-13 15:31 | PDOC ---
PROGRESS NOTES Assessment Assessment IMPRESSION: Subacute small right temporal loba and left frontal and parietal lobe infracts, embolic etiology. Metabolic encephalopathy. Seizures, provoked. Hyperglycemia, glucose level 594 DM HTN Anemia. 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 Amputation below the knee. RECOMMENDATIONS/PLAN: Plavix 75 mg daily. Control hyperglycemia. Treat medical diseases. Carotid A US + Doppler. Echo + Bubble study. EEG Fasting lipid panel. SUBJECTIVE: Stating doing better. OBJECTIVE: No acute focalized motor or sensory deficits. Past Medical History Cardiovascular: HTN Pulmonary: No pertinent hx CENTRAL NERVOUS SYSTEM: Other GI: No pertinent hx Heme/Onc: No pertinent hx Hepatobiliary: No pertinent hx Psych: No pertinent hx Musculoskeletal: Osteoarthritis Rheumatologic: No pertinent hx Infectious disease: No pertinent hx Renal/: No pertinent hx Endocrine: Diabetes Past Surgical History Appendectomy, Arthroscopy Family History Coronary Artery Disease Social History ALCOHOL: none Drugs: None Lives: with Family ALLERGY: ASA MEDICATIONS: Refer to [facility] REVIEW OF SYSTEMS: Constitutional: No malnutrition, weight loss, cachexia. Head: No traumatic brain or head injury. Skin: No edema, or rash. Ear: No infection. Eyes: No vision loss, or diplopia. Nose: No bleeding or purulent discharges. Hearing: No hearing decrease. Neck: No injury. Cardiac: HTN Pulmonary: No COPD. GI: No GI Ulcer, GI bleeding Urinary/genital: UTI. Endocrine: Diabetes Mellitus Skeletomuscular: No muscular atrophy, deformity. Neurological: see HP. Psychiatric: Denies drug use/abuse. Otherwise, not [id number] review of systems. PHYSICAL EXAMINATION: General appearance in subacute distress. HEENT: Normocephalic and nontraumatic. Eyes, nose, ears, and throat are unremarkable. Hearing decrease. Neck is supple. No lymphadenopathy. No bruits are heard over the carotid artery. No Crepitus. Cardiovascular: S1, S2, regular rate and rhythm. Pulmonary: Clear to auscultation bilaterally. Abdomen: Bowel sounds are positive. Abdomen is soft, nontender, and nondistended. Extremities: No rash, lesions, or edema. No restriction of range of motion NEUROLOGICAL EXAMINATION: Awake. Oriented to time, place and person. PERRL. EOMI. CN: no focal findings. Muscle tone: within normal. Muscle strength: 5- DTR: 2 UE, 1-2 at knee. LE amputed below the knee. Plantar reflex: LE amputated. Gait: Unable to walk w/o assistance. Sensory exam: no abnormal findings. No acute cerebellar signs elicited. F-T-N test fine. Objective Objective Vital Signs Date Time Temp Pulse Resp B/P Pulse Ox O2 Delivery O2 Flow Rate FiO2 12/13/16 14:36 98.0 85 18 148/86 98 Room Air 98.0 Intake and Output 12/13/16 06:59 Intake Total 540 ml Output Total 2050 ml Balance -1510 ml Intake Oral 540 ml Output Urine Total 2050 ml # Voids 3 # Bowel Movements 2 Vitals Signs Vitals VS - Last 72 Hours, by Label Date Time Temp Pulse Resp B/P Pulse Ox O2 Delivery O2 Flow Rate FiO2 12/13/16 14:36 98.0 85 18 148/86 98 Room Air 98.0 12/13/16 10:55 97.8 84 18 156/88 98 Room Air 97.8 12/13/16 08:07 82 158/92 12/13/16 07:00 98.0 86 18 162/92 98 Room Air 98.0 12/13/16 04:00 82 158/92 12/13/16 03:00 98.6 86 18 179/99 97 Room Air 98.6 12/12/16 22:43 98.4 83 17 157/96 98 Room Air 98.4 12/12/16 21:33 Room Air 12/12/16 20:03 Room Air 12/12/16 19:00 98.5 85 18 154/94 98 Room Air 98.5 12/12/16 14:41 99.0 94 20 138/86 96 Room Air 99.0 12/12/16 11:00 98.1 91 20 148/87 96 Room Air 98.1 12/12/16 08:23 78 167/83 12/12/16 07:00 97.9 78 20 167/83 97 Room Air 97.9 Laboratory Laboratory Laboratory Tests Test 12/12/16 16:30 12/12/16 20:48 12/13/16 06:57 12/13/16 10:20 Glucose (Fingerstick) 185mg/dL (70-99) 151mg/dL (70-99) 85mg/dL (70-99) 134mg/dL (70-99) Microbiology 4/21/17 Blood Culture - Preliminary, Resulted NO GROWTH AFTER 3 DAYS Medication Medications Current Medications Insulin Detemir (Levemir) 30 units QHS SQ Last administered on 12/12/16t 21:15 ; Start 12/12/16 at 21:00 Comment Review of Relevant I have reviewed the following items yobani (where applicable) has been applied. MERT MAGANA MD Dec 13, 2016 15:31
--- NOTE | 2016-12-13 16:29 | CARD ---
APPROVED REPORT EXAM: Two-dimensional and M-mode echocardiogram with Doppler, color Doppler with contrast. Other Information Quality : Average Rhythm : NSR INDICATION CVA/TIA Echo Enhancing Agent Indication: Rule Out Septal Defect Agent/Amount Used: Agitated Saline 16mL 2D DIMENSIONS RVDd2.7 (2.9-3.5cm)Left Atrium(2D)3.1 (1.6-4.0cm) IVSd1.5 (0.7-1.1cm)Aortic Root(2D)3.1 (2.0-3.7cm) LVDd3.9 (3.9-5.9cm)LVOT Diameter2.3 (1.8-2.4cm) PWd1.5 (0.7-1.1cm)LVDs2.8 (2.5-4.0cm) FS (%) 37.7 %SV35.7 ml LVEF(%)64.3 (>50%) Aortic Valve AoV Peak Cesar.107.3cm/sAoV VTI21.6cm AO Peak GR.4.6mmHgLVOT VTI 20.77cm AO Mean GR.3mmHg Mitral Valve MV E Xnncpirm58.9cm/sMV DECEL [id number] MV A Bgkjmiyu973.4cm/sE/A Ratio0.6 TDI Lateral E' P. V6.91cm/sMedial E' P. V4.93cm/s E/Lateral E'9.7E/Medial E'13.6 Tricuspid Valve TR P. Ldsjkrjp275gm/sRAP [id number] TR Peak Gr.67yfFmNAWX05qjVx LEFT VENTRICLE The left ventricle is normal size. There is moderate concentric left ventricular hypertrophy. Left ve ntricle systolic function is normal. The Ejection Fraction is 60-65%. There is normal LV segmental wa ll motion. Tissue Doppler imaging reveals mild left ventricular diastolic dysfunction. RIGHT VENTRICLE The right ventricle is normal size. The right ventricular systolic function is normal. ATRIA The left atrium size is normal. The right atrium size is normal. The interatrial septum is intact wit h no evidence for an atrial septal defect or patent foramen ovale as noted on 2-D or Doppler imaging. Suboptimal agitated saline study, non-diagnostic for PFO. AORTIC VALVE The aortic valve is normal in structure and function. The aortic valve is trileaflet. Doppler and Col or Flow revealed no significant aortic regurgitation. There is no significant aortic valvular stenosi s. MITRAL VALVE The mitral valve leaflets are thickened. There is no mitral valve stenosis. Doppler and Color Flow re vealed mild mitral regurgitation. TRICUSPID VALVE The tricuspid valve is normal in structure and function. Doppler and Color Flow revealed mild tricusp id regurgitation. The PA pressure was estimated at 22 mmHg. There is no tricuspid valve stenosis. PULMONIC VALVE The pulmonic valve is not well visualized. Doppler and Color Flow revealed no pulmonic valvular regur gitation. There is no pulmonic valvular stenosis. GREAT VESSELS The aortic root is normal in size. The IVC is normal in size and collapses >50% with inspiration. PERICARDIAL EFFUSION There is a small circumferential pericardial effusion without hemodynamic compromise is noted. Critical Notification Critical Value: No <Conclusion> There is moderate concentric left ventricular hypertrophy. Left ventricle systolic function is normal. The Ejection Fraction is 60-65%. There is normal LV segmental wall motion. The interatrial septum is intact with no evidence for an atrial septal defect or patent foramen ovale as noted on 2-D or Doppler imaging. Suboptimal agitated saline study, non-diagnostic for PFO. There is a small circumferential pericardial effusion without hemodynamic compromise is noted, stable compared to 1 year ago.
[2016-12-13] MEDS: CLOPIDOGREL BISULFATE 75 MG TABLET PO SCH (17:21)
--- NOTE | 2016-12-13 20:58 | EEG ---
DATE OF SERVICE: 12/13/2016 EEG NUMBER: [id number]. OBJECTIVE: This is a 56-year-old -[place] male patient with history of new-onset seizure but thought was provoked. EEG was requested to evaluate seizure activity and help rule out epileptic seizure. METHODS: 20 electrodes were applied according to the international 10-20 electrode placement system. EKG monitoring, hyperventilation, intermittent photic stimulation, monopolar and bipolar montages are routinely utilized. The record was obtained on a digital system with video monitoring. No antiseizure medication. FINDINGS: 1. Background: The patient was recorded in the awake and drowsy states. No sleep state was recorded. The overall background amplitude is 5-10 microvolts. A posterior dominant rhythm of 7-9 Hz is observed, but most time is in 8 Hz range. There is superimposed slowing in theta frequency noted. 2. Abnormalities: No specific epileptiform discharge or electrographic seizure is seen. 3. Activation: Hyperventilation was not performed. The patient was unwilling to perform the technique. Intermittent photic stimulation was performed with photic driving. No specific epileptiform discharge or electrographic seizure induced. IMPRESSION: This EEG falls into the abnormal category of the study for the awake and drowsy states. No sleep state was recorded. There is superimposed slowing in theta frequency. No focal, lateralizing, specific epileptiform discharge or electrographic seizure is seen. This pattern of EEG may suggest mild encephalopathy. MERT MAGANA MD DR: LOLIS/maria isabel JOB#: [id number] / [id number] MAITE
[2016-12-13] MEDS: INSULIN DETEMIR 300 UNITS/3 ML INSULN.PEN. SQ SCH (21:46)
--- NOTE | 2016-12-13 21:56 | PDOC ---
PROGRESS NOTES Chief Complaint Chief Complaint 1. seizure like activity, likely provoked. 2. acute metabolic encephalopathy, prior CVA, gen weakness and debility - back to baseline 2. dm2, uncontrolled: Insulin with SSI, elevated at home likely due to non compliances. 4. Noncompliance medications 5. HTN 6. TE, vasomotor due to BS 7. Prior BKA with wound, peripheral vascular dz 8. Subacute small right temporal loba and left frontal and parietal lobe infracts, embolic etiology.: work up ECHO/US Pending. History of Present Illness History of Present Illness No SZ since admit Watching tv Lives at home, bilateral amputee with stump wounds, none infected - has wound care at home Has HH at home PT recs SNU - he does not want SNU but his existing HH MEntating well. WOund care on board seen this am, anticipated DC Noted to have cva symptoms after that he says he is complaint with medications Vitals Vitals Vital Signs Date Time Temp Pulse Resp B/P Pulse Ox O2 Delivery O2 Flow Rate FiO2 12/13/16 19:32 Room Air 12/13/16 19:00 99.0 106 18 174/99 97 99.0 Physical Exam General: Alert, Oriented X3, Cooperative, No acute distress Heart: Regular rate, Normal S1, No murmurs Lungs: Clear Abdomen: Normal bowel sounds, Soft Extremities: No clubbing, No cyanosis Skin: No rashes, No breakdown Labs LABS Laboratory Tests Test 12/13/16 06:57 12/13/16 10:20 12/13/16 16:12 12/13/16 21:12 Glucose (Fingerstick) 85mg/dL (70-99) 134mg/dL (70-99) 332mg/dL (70-99) 285mg/dL (70-99) Assessment and Plan Assessmemt and Plan Problems Medical Problems: (1) Altered mental status Status: Acute (2) Seizure-like activity Status: Acute (3) Uncontrolled diabetes mellitus Status: Acute Problems: Comment Review of Relevant I have reviewed the following items yobani (where applicable) has been applied. Labs Laboratory Tests Test 12/12/16 08:00 12/12/16 10:58 12/12/16 16:30 12/12/16 20:48 Glucose (Fingerstick) 313mg/dL (70-99) 207mg/dL (70-99) 185mg/dL (70-99) 151mg/dL (70-99) Test 12/13/16 06:57 12/13/16 10:20 12/13/16 16:12 12/13/16 21:12 Glucose (Fingerstick) 85mg/dL (70-99) 134mg/dL (70-99) 332mg/dL (70-99) 285mg/dL (70-99) Laboratory Tests Test 12/13/16 06:57 12/13/16 10:20 12/13/16 16:12 12/13/16 21:12 Glucose (Fingerstick) 85mg/dL (70-99) 134mg/dL (70-99) 332mg/dL (70-99) 285mg/dL (70-99) Microbiology 12/10/16 Blood Culture - Preliminary, Resulted NO GROWTH AFTER 3 DAYS Medications Current Medications Sodium Chloride (Iv Sodium Chloride 0.9% 1000ml Bag) 1,000 ml @ 1,000 mls/hr 1X ONCE IV Last administered on 12/10/16 08:47; Start 12/10/16 at 08:45; Stop 12/10/16 at 09:44; Status DC Insulin Human Regular 10 unit 10 unit 1X ONCE IV Last administered on 09:32; Start 12/10/16 at 08:45; Stop 12/10/16 at 08:46; Status DC Sodium Chloride (Iv Sodium Chloride 0.9% 1000ml Bag) 1,000 ml @ 125 mls/hr Q8H IV Last administered on 12/10/16 22:58; Start 12/10/16 at 09:59; Stop at 09:58; Status DC Labetalol HCl (Normodyne) 10 mg 1X ONCE IVP Last administered on 12/10/16 10: 13; Start 12/10/16 at 10:15; Stop 12/10/16 at 10:16; Status DC Insulin Aspart (Novolog) 10 units 1X ONCE SQ Last administered on 12/10/16 12 :13; Start 12/10/16 at 12:30; Stop 12/10/16 at 12:31; Status DC Insulin Aspart (Novolog) 0-9 UNITS TIDWMEALS SQ Last administered on 12/13/16 17:25; Start 12/10/16 at 12:00 Dextrose (Dextrose 50%-Water Syringe) 12.5 gm PRN Q15MIN PRN IV SEE COMMENTS; Start 12/10/16 at 12:00 Famotidine (Pepcid) 20 mg BID PO Last administered on 12/13/16 21:43; Start at 21:00 Ferrous Sulfate (Feosol) 325 mg DAILY PO Last administered on 12/13/16 08:07; Start 12/11/16 at 09:00 Acetaminophen/ Hydrocodone Bitart (Lortab 5/325) 1 tab PRN Q6HRS PRN PO MODERATE - SEVERE PAIN; Start 12/10/16 at 15:00 Lisinopril (Prinivil) 10 mg DAILY PO ; Start 12/10/16 at 15:00; Status Cancel Tramadol HCl (Ultram) 50 mg PRN Q6HRS PRN PO MILD PAIN; Start 12/10/16 at 15:00 Lisinopril (Prinivil) 5 mg DAILY PO Last administered on 12/13/16 08:07; Start 12/10/16 at 15:00 Insulin Detemir (Levemir) 20 units QHS SQ Last administered on 12/11/16 21:17 ; Start 12/10/16 at 21:00; Stop 12/12/16 at 09:11; Status DC Insulin Aspart (Novolog) 6 units TIDAC SQ Last administered on 12/12/16 08:34 ; Start 12/10/16 at 16:30; Stop 12/12/16 at 09:11; Status DC Acetaminophen (Tylenol) 650 mg PRN Q6HRS PRN PO FEVER Last administered on 12/11 21:12; Start 12/10/16 at 15:00 Ondansetron HCl (Zofran) 4 mg PRN Q6HRS PRN IV NAUSEA/VOMITING; Start 12/10/16 at 15:00 Hydralazine HCl (Apresoline) 10 mg PRN Q4HRS PRN IVP ELEVATED BP, SEE COMMENTS ; Start 12/10/16 at 15:00 Heparin Sodium (Porcine) 5,000 unit Q8HRS SQ Last administered on 12/13/16 05: 40; Start 12/10/16 at 22:00 Lorazepam (Ativan) 2 mg PRN Q4HRS PRN IV ANXIETY / AGITATION; Start 12/10/16 at 15:00 Potassium Chloride (Klor-Con) 40 meq 1X ONCE PO Last administered on 06:00; Start 12/11/16 at 06:00; Stop 12/11/16 at 06:01; Status DC Potassium Chloride (Klor-Con) 40 meq 1X ONCE PO Last administered on 09:12; Start 12/11/16 at 10:00; Stop 12/11/16 at 10:01; Status DC Potassium Chloride 20 meq 20 meq DAILYWBKFT PO Last administered on 12/13/16 08:08; Start 12/11/16 at 10:00 Magnesium Sulfate/ Dextrose (Magnesium Sulfate PREMIX 2GM) 50 ml @ 25 mls/hr 1X ONCE IV Last administered on 12/11/16 12:33; Start 12/11/16 at 10:30; Stop 12/11/16 at 12:29; Status DC Insulin Aspart (Novolog) 10 units TIDAC SQ Last administered on 12/13/16 17:26 ; Start 12/12/16 at 11:30 Insulin Detemir (Levemir) 30 units QHS SQ Last administered on 12/13/16 21:46 ; Start 12/12/16 at 21:00 Mupirocin (Bactroban) 1 vincent BID NS Last administered on 12/13/16 08:08; Start 12/12/16 at 09:15 Clopidogrel Bisulfate (Plavix) 75 mg DAILYWBKFT PO Last administered on 17:21; Start 12/13/16 at 16:00 Active Scripts Active Reported Piperacil-Tazobact 3.375 Gm Vl (Piperacillin Sodium/Tazobactam) 3.375 Gm Vial 3.375 Gm IV Q6HRS Ferrous Sulfate 325 Mg Tablet 300 Mg PO DAILY Tramadol Hcl 50 Mg Tablet 1 Tab PO PRN Q6HRS PRN Silver Nitrate Applicator 1 Each Stick..ea. 1 Each TP Famotidine 20 Mg Tablet 20 Mg PO BID Lisinopril 5 Mg Tablet 1 Tab PO DAILY Hydrocodone-Apap 5-325 (Hydrocodone Bit/Acetaminophen) 1 Each Tablet 1 Tab PO PRN Q6HRS PRN Lovenox (Enoxaparin Sodium) 40 Mg/0.4 Ml Disp.syrin 0.4 Ml SQ DAILY Humulin R (Insulin Regular, Human) 100 Unit/1 Ml Vial 7 Unit IJ TID Lantus Solostar (Insulin Glargine,Hum.rec.anlog) 100 Unit/1 Ml Insuln.pen 35 Unit SQ QHS Vitals/I & O Vital Sign - Last 24 Hours 12/12/16 12/13/16 12/13/16 12/13/16 22:43 03:00 04:00 07:00 Temp 98.4 98.6 98.0 98.4 98.6 98.0 Pulse 83 86 82 86 Resp B/P 157/96 179/99 158/92 162/92 Pulse Ox 98 97 98 O2 Delivery Room Air Room Air Room Air 12/13/16 12/13/16 12/13/16 12/13/16 08:07 10:55 14:36 19:00 Temp 97.8 98.0 99.0 97.8 98.0 99.0 Pulse 82 84 85 106 Resp 18 B/P 158/92 156/88 148/86 174/99 Pulse Ox 98 98 97 O2 Delivery Room Air Room Air 12/13/16 19:32 O2 Delivery Room Air Intake and Output 12/12/16 12/12/16 12/13/16 15:00 23:00 07:00 Intake Total 300 ml 240 ml Output Total 500 ml 1550 ml Balance 300 ml -260 ml -1550 ml Nutrition Consultation Dietary Evaluation: Recommendations by RD: Dietary education by RD, Increase Calorie Intake, Protein supplementation Comments: Boost glucose control TID - 250kcal and 14g protein per serving Rec. MVI and 500mg vit c BID for wound healing Educated and provided handouts on MNT for DM Expected Outcomes/Goals: to meet >75% est nutr needs to identify 2 foods high in CHO Malnutrition Findings: Weight Status: Overweight BEVERLY SIMONS MD Dec 13, 2016 21:56
--- NOTE | 2016-12-13 23:45 | DS ---
DATE OF DISCHARGE: 12/14/2016 DISCHARGE DIAGNOSES: 1. Seizure-like activity, no active seizures seen during hospitalization: 2. Metabolic encephalopathy, resolved. 3. Diabetes mellitus, uncontrolled, currently controlled with sliding scale insulin. 4. Noncompliance with medication. 5. Hypertension. 6. Acute kidney injury, vasomotor, resolved. 7. 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 8. Peripheral vascular disease, which is chronic. 9. Subacute small right temporal loba and left frontal and parietal lobe infracts, embolic etiology 10. Hyperlipidemia. BRIEF HOSPITAL COURSE: A 56-year-old male patient admitted to the hospital for seizure-like activity. He was evaluated by Neurology and had imaging studies such as CT of the head, which did not show any acute findings but his MRI is suggestive o subacute small infarcts, suspected due to emboli. During hospitalization, he did not have any active seizures. His mental status improved back to his baseline status. There is a component of noncompliance with medications. The patient's blood sugars were well controlled here with 30 units of Levemir and p.r.n. NovoLog; however, the patient's blood sugars at the time of admission is elevated to more than 500s. He has been treated with sliding scale insulin. At the time of discharge, he has been instructed to follow up with primary care doctor with home logs and with cardiology for event monitor. DISCHARGE EXAMINATION: GENERAL: Alert, oriented x 3. HEART: S1, S2 present. LUNGS: Anterior chest clear. ABDOMEN: Soft, nontender, no organomegaly. EXTREMITIES: Upper extremities, no edema. BKA DISCHARGE DISPOSITION: Home with home health services. DISCHARGE CONDITION: Stable. FOLLOWUP: With primary care doctor, with home health and also Neurology in 1-2 months and wound care followup. MEDICATIONS: Reviewed and reconciled. Please see MRAD. Total time spent for discharge is 32 minutes for patient education, counseling, and coordination of care. BEVERLY SIMONS MD DR: JANEL/maria isabel JOB#: [id number] / [id number] MTDD
[2016-12-14 05:37] LABS: CHOLESTEROL/HDL RATIO 7.4
[2016-12-14] MEDS: HEPARIN PF for SUB-Q USE 5,000 UNIT/0.5 ML VIAL. SQ SCH ×2 (05:58→14:00)
[2016-12-14 07:00] VITALS: BP 169/95
[2016-12-14] MEDS: POTASSIUM CHLORIDE 20 MEQ TABLET.ER. PO SCH ×2 (08:00→08:33)
--- NOTE | 2016-12-14 08:08 | RAD ---
Carotid ultrasound, 12/13/2016: History: CVA Duplex evaluation of the carotid arteries in neck was performed including grayscale, color-flow and spectral Doppler analysis. The study was partially compromised by patient motion. There is moderate atherosclerotic plaquing in the distal common carotid arteries and at both carotid bifurcations. The plaques are partially calcified producing shadows which partially obscuring the underlying lumen on both sides. On the right, the peak systolic velocity in the internal carotid artery is 95 cm per sec with an end-diastolic velocity of 26 cm/s. On the left, the peak systolic velocity in the internal carotid artery is 55 cm/s with an end-diastolic velocity of 18 cm/s. The Doppler findings suggest narrowing in the 0-50% diameter range bilaterally. No high-grade focal stenosis was identified. Antegrade flow is present in both vertebral arteries in the neck. IMPRESSION: Moderate atherosclerotic plaquing at both carotid bifurcations with underlying luminal narrowing in the 0-50% diameter range bilaterally. Note: Stenosis calculations for CT, MRA and conventional angiography are based upon determination of the distal ICA diameter in accordance with the NASCET methodology. Stenosis calculations for Doppler studies are derived from validated velocity criteria which are known to correlate with NASCET methodology of determining stenosis.
[2016-12-14] MEDS: CLOPIDOGREL BISULFATE 75 MG TABLET PO SCH (08:31)
[2016-12-14] MEDS: FAMOTIDINE 20 MG TABLET. PO SCH (08:32)
[2016-12-14] MEDS: LISINOPRIL 5 MG TABLET. PO SCH (08:32)
[2016-12-14] MEDS: FERROUS SULFATE 325 MG TABLET. PO SCH (08:33)
[2016-12-14] MEDS: INSULIN ASPART 300 UNITS/3 ML INSULN.PEN SQ SCH ×6 (08:41→16:49)
[2016-12-14] MEDS: MUPIROCIN 2 % NASAL OINTMENT 22GM TUBE. NS SCH (08:55)
--- NOTE | 2016-12-14 09:51 | PDOC ---
PROGRESS NOTES Chief Complaint Chief Complaint 1. seizure like activity, likely provoked. 2. acute metabolic encephalopathy, prior CVA, gen weakness and debility - back to baseline 2. dm2, uncontrolled: Insulin with SSI, elevated at home likely due to non compliances. 4. Noncompliance medications 5. HTN not controlled. started on Lisinopril 6. TE, vasomotor due to BS, improved, 7. Prior BKA with wound, peripheral vascular dz 8. Subacute small right temporal lobe and left frontal and parietal lobe infracts, embolic etiology.: work up ECHO/US : no acute process, planning for event monitor as out pt. 9. HLP: not controlled, started on Lipitor Vitals Vitals Vital Signs Date Time Temp Pulse Resp B/P Pulse Ox O2 Delivery O2 Flow Rate FiO2 12/14/16 09:15 Room Air 12/14/16 08:32 86 169/95 12/14/16 07:00 98.9 16 97 98.9 Physical Exam General: Alert, Oriented X3, Cooperative, No acute distress Heart: Regular rate, Normal S1, No murmurs Lungs: Clear Abdomen: Normal bowel sounds, Soft Extremities: No clubbing, No cyanosis Skin: No rashes, No breakdown Labs LABS Laboratory Tests Test 12/13/16 10:20 12/13/16 16:12 12/13/16 21:12 12/14/16 03:25 Glucose (Fingerstick) 134mg/dL (70-99) 332mg/dL (70-99) 285mg/dL (70-99) Triglycerides Level 218mg/dL (0-150) Cholesterol Level 275mg/dL (0-200) LDL Cholesterol, Calculated 194mg/dL (0-100) VLDL Cholesterol, Calculated 44mg/dL (0-40) Non-HDL Cholesterol Calculated 238mg/dL (0-129) HDL Cholesterol 37mg/dL (40-60) Cholesterol/HDL Ratio 7.4 Test 12/14/16 07:11 Glucose (Fingerstick) 344mg/dL (70-99) Assessment and Plan Assessmemt and Plan Problems Medical Problems: (1) Altered mental status Status: Acute (2) Seizure-like activity Status: Acute (3) Uncontrolled diabetes mellitus Status: Acute Problems: Comment Review of Relevant I have reviewed the following items yobani (where applicable) has been applied. Labs Laboratory Tests Test 12/12/16 10:58 12/12/16 16:30 12/12/16 20:48 12/13/16 06:57 Glucose (Fingerstick) 207mg/dL (70-99) 185mg/dL (70-99) 151mg/dL (70-99) 85mg/dL (70-99) Test 12/13/16 10:20 12/13/16 16:12 12/13/16 21:12 12/14/16 03:25 Glucose (Fingerstick) 134mg/dL (70-99) 332mg/dL (70-99) 285mg/dL (70-99) Triglycerides Level 218mg/dL (0-150) Cholesterol Level 275mg/dL (0-200) LDL Cholesterol, Calculated 194mg/dL (0-100) VLDL Cholesterol, Calculated 44mg/dL (0-40) Non-HDL Cholesterol Calculated 238mg/dL (0-129) HDL Cholesterol 37mg/dL (40-60) Cholesterol/HDL Ratio 7.4 Test 12/14/16 07:11 Glucose (Fingerstick) 344mg/dL (70-99) Laboratory Tests Test 12/13/16 10:20 12/13/16 16:12 12/13/16 21:12 12/14/16 03:25 Glucose (Fingerstick) 134mg/dL (70-99) 332mg/dL (70-99) 285mg/dL (70-99) Triglycerides Level 218mg/dL (0-150) Cholesterol Level 275mg/dL (0-200) LDL Cholesterol, Calculated 194mg/dL (0-100) VLDL Cholesterol, Calculated 44mg/dL (0-40) Non-HDL Cholesterol Calculated 238mg/dL (0-129) HDL Cholesterol 37mg/dL (40-60) Cholesterol/HDL Ratio 7.4 Test 12/14/16 07:11 Glucose (Fingerstick) 344mg/dL (70-99) Microbiology 12/10/16 Blood Culture - Preliminary, Resulted NO GROWTH AFTER 4 DAYS Medications Current Medications Sodium Chloride (Iv Sodium Chloride 0.9% 1000ml Bag) 1,000 ml @ 1,000 mls/hr 1X ONCE IV Last administered on 12/10/16t 08:47; Start 12/10/16 at 08:45; Stop 12/10/16 at 09:44; Status DC Insulin Human Regular 10 unit 10 unit 1X ONCE IV Last administered on 09:32; Start 12/10/16 at 08:45; Stop 12/10/16 at 08:46; Status DC Sodium Chloride (Iv Sodium Chloride 0.9% 1000ml Bag) 1,000 ml @ 125 mls/hr Q8H IV Last administered on 12/10/16 22:58; Start 12/10/16 at 09:59; Stop at 09:58; Status DC Labetalol HCl (Normodyne) 10 mg 1X ONCE IVP Last administered on 12/10/16 10: 13; Start 12/10/16 at 10:15; Stop 12/10/16 at 10:16; Status DC Insulin Aspart (Novolog) 10 units 1X ONCE SQ Last administered on 12/10/16 12 :13; Start 12/10/16 at 12:30; Stop 12/10/16 at 12:31; Status DC Insulin Aspart (Novolog) 0-9 UNITS TIDWMEALS SQ Last administered on 12/14/16 08:42; Start 12/10/16 at 12:00 Dextrose (Dextrose 50%-Water Syringe) 12.5 gm PRN Q15MIN PRN IV SEE COMMENTS; Start 12/10/16 at 12:00 Famotidine (Pepcid) 20 mg BID PO Last administered on 12/14/16 08:32; Start at 21:00 Ferrous Sulfate (Feosol) 325 mg DAILY PO Last administered on 12/14/16 08:33; Start 12/11/16 at 09:00 Acetaminophen/ Hydrocodone Bitart (Lortab 5/325) 1 tab PRN Q6HRS PRN PO MODERATE - SEVERE PAIN; Start 12/10/16 at 15:00 Lisinopril (Prinivil) 10 mg DAILY PO ; Start 12/10/16 at 15:00; Status Cancel Tramadol HCl (Ultram) 50 mg PRN Q6HRS PRN PO MILD PAIN; Start 12/10/16 at 15:00 Lisinopril (Prinivil) 5 mg DAILY PO Last administered on 12/14/16 08:32; Start 12/10/16 at 15:00 Insulin Detemir (Levemir) 20 units QHS SQ Last administered on 12/11/16 21:17 ; Start 12/10/16 at 21:00; Stop 12/12/16 at 09:11; Status DC Insulin Aspart (Novolog) 6 units TIDAC SQ Last administered on 12/12/16 08:34 ; Start 12/10/16 at 16:30; Stop 12/12/16 at 09:11; Status DC Acetaminophen (Tylenol) 650 mg PRN Q6HRS PRN PO FEVER Last administered on 12/11 21:12; Start 12/10/16 at 15:00 Ondansetron HCl (Zofran) 4 mg PRN Q6HRS PRN IV NAUSEA/VOMITING; Start 12/10/16 at 15:00 Hydralazine HCl (Apresoline) 10 mg PRN Q4HRS PRN IVP ELEVATED BP, SEE COMMENTS ; Start 12/10/16 at 15:00 Heparin Sodium (Porcine) 5,000 unit Q8HRS SQ Last administered on 12/13/16 05: 40; Start 12/10/16 at 22:00 Lorazepam (Ativan) 2 mg PRN Q4HRS PRN IV ANXIETY / AGITATION; Start 12/10/16 at 15:00 Potassium Chloride (Klor-Con) 40 meq 1X ONCE PO Last administered on 06:00; Start 12/11/16 at 06:00; Stop 12/11/16 at 06:01; Status DC Potassium Chloride (Klor-Con) 40 meq 1X ONCE PO Last administered on 09:12; Start 12/11/16 at 10:00; Stop 12/11/16 at 10:01; Status DC Potassium Chloride 20 meq 20 meq DAILYWBKFT PO Last administered on 12/13/16 08:08; Start 12/11/16 at 10:00 Magnesium Sulfate/ Dextrose (Magnesium Sulfate PREMIX 2GM) 50 ml @ 25 mls/hr 1X ONCE IV Last administered on 12/11/16 12:33; Start 12/11/16 at 10:30; Stop 12/11/16 at 12:29; Status DC Insulin Aspart (Novolog) 10 units TIDAC SQ Last administered on 12/14/16 08:41 ; Start 12/12/16 at 11:30 Insulin Detemir (Levemir) 30 units QHS SQ Last administered on 12/13/16 21:46 ; Start 12/12/16 at 21:00 Mupirocin (Bactroban) 1 vincent BID NS Last administered on 12/14/16 08:55; Start 12/12/16 at 09:15 Clopidogrel Bisulfate (Plavix) 75 mg DAILYWBKFT PO Last administered on 08:31; Start 12/13/16 at 16:00 Lisinopril (Prinivil) 20 mg DAILY PO ; Start 12/14/16 at 10:00; Status UNV Atorvastatin Calcium (Lipitor) 40 mg QHS PO ; Start 12/14/16 at 21:00; Status UNV Active Scripts Active Reported Piperacil-Tazobact 3.375 Gm Vl (Piperacillin Sodium/Tazobactam) 3.375 Gm Vial 3.375 Gm IV Q6HRS Ferrous Sulfate 325 Mg Tablet 300 Mg PO DAILY Tramadol Hcl 50 Mg Tablet 1 Tab PO PRN Q6HRS PRN Silver Nitrate Applicator 1 Each Stick..ea. 1 Each TP Famotidine 20 Mg Tablet 20 Mg PO BID Lisinopril 5 Mg Tablet 1 Tab PO DAILY Hydrocodone-Apap 5-325 (Hydrocodone Bit/Acetaminophen) 1 Each Tablet 1 Tab PO PRN Q6HRS PRN Lovenox (Enoxaparin Sodium) 40 Mg/0.4 Ml Disp.syrin 0.4 Ml SQ DAILY Humulin R (Insulin Regular, Human) 100 Unit/1 Ml Vial 7 Unit IJ TID Lantus Solostar (Insulin Glargine,Hum.rec.anlog) 100 Unit/1 Ml Insuln.pen 35 Unit SQ QHS Vitals/I & O Vital Sign - Last 24 Hours 12/13/16 12/13/16 12/13/16 12/13/16 10:55 14:36 19:00 19:32 Temp 97.8 98.0 99.0 97.8 98.0 99.0 Pulse 84 85 106 Resp 18 18 18 B/P 156/88 148/86 174/99 Pulse Ox 98 98 97 O2 Delivery Room Air Room Air Room Air 12/13/16 12/14/16 12/14/16 12/14/16 23:00 07:00 08:00 08:32 Temp 99.0 98.9 99.0 98.9 Pulse 103 86 86 Resp 18 16 B/P 167/96 169/95 169/95 Pulse Ox 98 97 O2 Delivery Room Air Room Air 12/14/16 09:15 O2 Delivery Room Air Intake and Output 12/13/16 12/13/16 12/14/16 15:00 23:00 07:00 Intake Total 720 ml 360 ml 240 ml Output Total 400 ml 900 ml Balance 720 ml -40 ml -660 ml Nutrition Consultation Dietary Evaluation: Recommendations by RD: Dietary education by RD, Increase Calorie Intake, Protein supplementation Comments: Boost glucose control TID - 250kcal and 14g protein per serving Rec. MVI and 500mg vit c BID for wound healing Educated and provided handouts on MNT for DM Expected Outcomes/Goals: to meet >75% est nutr needs to identify 2 foods high in CHO Malnutrition Findings: Weight Status: Overweight BEVERLY SIMONS MD Dec 14, 2016 09:51
[2016-12-14] MEDS ORDERED: LISINOPRIL 20 MG TABLET PO SCH (10:00)
[2016-12-14 10:07] LABS: CALCIUM 7.8 mg/dL (8.5-10.1); CREATININE 1.3 mg/dL (0.7-1.3); GFR 68.8; POTASSIUM 3.7 mmol/L (3.5-5.1)
--- NOTE | 2016-12-14 10:25 | PDOC2 ---
CARDIAC CONSULT DATE OF CONSULT Date of Consult DATE: 12/14/16 TIME: 10:02 REASON FOR CONSULT Reason for Consult: Embolic stroke REFERRING PHYSICIAN Referring Physician: [facility] SOURCE Source: Chart review, Patient HISTORY OF PRESENT ILLNESS HISTORY OF PRESENT ILLNESS This is a pleasant 56 yo male admitted for witnessed seizure at home. Verbalized that the span was 2 minutes. Pt reports that spouse witnessed this. His BG initially at that time per EMS was 588. Upon further diagnostics he has been noted with embolic stroke. He as been strugling with BG control prompting several amputations mainly to LE with nonhealing ulcers. Denies any prior arrhythmias or cardiac disease. Denies any intermittent palpitations, chest pain, SOA. No recent injuries or falls. Currently he is doing better and his mentation is back to his baseline. He resides at home with his . PAST MEDICAL HISTORY Past Medical History Cardiovascular: HTN Pulmonary: No pertinent hx CENTRAL NERVOUS SYSTEM: old CVA per imaging GI: GERD Heme/Onc: No pertinent hx Hepatobiliary: No pertinent hx Psych: No pertinent hx Musculoskeletal: Osteoarthritis Rheumatologic: No pertinent hx Infectious disease: No pertinent hx ENT: No pertinent hx Renal/: No pertinent hx Endocrine: Diabetes (DM2 diagnosed 4-5 yrs ago) Dermatology: Other (coccyx wound) PAST SURGICAL HISTORY Past Surgical History Appendectomy, Arthroscopy (right hand surgery), Other (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), right hip ulcer debridement FAMILY HISTORY Family History Coronary Artery Disease (father) SOCIAL HISTORY Social History Smoke: No ALCOHOL: none Drugs: None Lives: with Family CURRENT MEDICATIONS CURRENT MEDICATIONS Current Medications Medications (Trade) Dose Ordered Sig/Akua Route PRN Reason Start Time Stop Time Status Last Admin Dose Admin Clopidogrel Bisulfate (Plavix) 75 mg DAILYWBKFT PO 12/13/16 16:00 12/14/16 08:31 ALLERGIES ALLERGIES: Coded Allergies: aspirin (Verified Allergy, Intermediate, Nausea and Vomiting, 09/29/16) gi bleeding also I S O L A T I O N *CONTACT* (Verified Allergy, Unknown, 09/29/16) mrsa No Known Medication Allergies (Verified Allergy, Unknown, 09/29/16) ROS Review of System 14 point ROS evaluated with pertinent positives noted per HPI PHYSICAL EXAM General: Alert, Oriented X3, Cooperative, No acute distress HEENT: Atraumatic, Mucous membr. moist/pink Heart: Regular rate (SR), Normal S1, Normal S2, Other (2/6 systolic murmur to LLS border) Abdomen: Soft, No tenderness Extremities: No cyanosis, Other (bilateral BKA) Skin: Other (stump ulcer) Neuro: Normal speech, Sensation intact Psych/Mental Status: Mental status NL, Mood NL MUSCULOSKELETAL: Osteoarthritic changes both hands VITALS VITALS Vital Signs Date Time Temp Pulse Resp B/P Pulse Ox O2 Delivery O2 Flow Rate FiO2 12/14/16 09:15 Room Air 12/14/16 08:32 86 169/95 12/14/16 07:00 98.9 16 97 98.9 LABS Lab: Laboratory Tests Test 12/13/16 10:20 12/13/16 16:12 12/13/16 21:12 12/14/16 03:25 Glucose (Fingerstick) 134mg/dL (70-99) 332mg/dL (70-99) 285mg/dL (70-99) Triglycerides Level 218mg/dL (0-150) Cholesterol Level 275mg/dL (0-200) LDL Cholesterol, Calculated 194mg/dL (0-100) VLDL Cholesterol, Calculated 44mg/dL (0-40) Non-HDL Cholesterol Calculated 238mg/dL (0-129) HDL Cholesterol 37mg/dL (40-60) Cholesterol/HDL Ratio 7.4 Test 12/14/16 07:11 Glucose (Fingerstick) 344mg/dL (70-99) ECHOCARDIOGRAM ECHOCARDIOGRAM <Conclusion> There is moderate concentric left ventricular hypertrophy. Left ventricle systolic function is normal. The Ejection Fraction is 60-65%. There is normal LV segmental wall motion. The interatrial septum is intact with no evidence for an atrial septal defect or patent foramen ovale as noted on 2-D or Doppler imaging. Suboptimal agitated saline study, non-diagnostic for PFO. There is a small circumferential pericardial effusion without hemodynamic compromise is noted, stable compared to 1 year ago. DATE: 12/13/16 1628 ASSESSMENT/PLAN ASSESSMENT/PLAN 1. Subacute embolic CVA with provoked seizures: neurology following 2. Mild carotid artery disease 3. DM2: insulin dependent. BG uncontrolled 4. HLP: uncontrolled 5. HTN: labile, sinus tach at 100. 6. Anemia: Hgb 8.8 7. Hx of nonhealing wounds prompting bilateral BKA Recommendations 1. Continue with lisinopril. Will start on low dose coreg. 2. BMP and Mg today and replace K/Mg as warranted. 3. SR/ST without significant ectopies so far. TTE revealed no ASD/PFO. Will plan for outpt event monitor and rule out contributing AFIB/Aflutter 4. Continue with secondary prevention. on plavix. ASA caused GI bleed in the past accdg to him no star allergy. 5. Supportive care at this time Problems: CLAIRE MORFIN [employer] WORKER Dec 14, 2016 10:25
[2016-12-14 10:30] LABS: HEMATOCRIT 26.2 % (39.0-53.0); HEMOGLOBIN 9.1 g/dL (13.0-17.5); RED BLOOD COUNT 2.99 x10^6/uL (4.30-5.70); WHITE BLOOD COUNT 6.3 x10^3/uL (4.0-11.0)
[2016-12-14 11:00] VITALS: BP 142/87
[2016-12-14] MEDS ORDERED: LISINOPRIL 20 MG TABLET PO ONE (11:00)
[2016-12-14] MEDS: CARVEDILOL 3.125 MG TABLET. PO SCH ×2 (11:39→16:45)
[2016-12-14 15:00] VITALS: BP 148/79
--- NOTE | 2016-12-14 15:24 | PDOC ---
PROGRESS NOTES Assessment Assessment Subacute small right temporal loba and left frontal and parietal lobe infracts, embolic etiology. Metabolic encephalopathy. Seizures, provoked. Hyperglycemia, glucose level 594 DM HTN HLD Anemia. 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 Amputation below the knee. RECOMMENDATIONS/PLAN: Continue Plavix 75 mg daily. Lipitor 40 mg HS. Cardiology consulted for embolic infarcts. Control hyperglycemia. Treat medical diseases. FU with PCP. FU with Neurology as needed. Carotid A US + Doppler : No hig grade stenosis. Echo + Bubble study: Unremarkable. EEG: No epileptiform discharges or electrographic seizures. Fasting lipid panel: elevated. SUBJECTIVE: Stating doing better. OBJECTIVE: No acute focalized motor or sensory deficits. Past Medical History Cardiovascular: HTN Pulmonary: No pertinent hx CENTRAL NERVOUS SYSTEM: Other GI: No pertinent hx Heme/Onc: No pertinent hx Hepatobiliary: No pertinent hx Psych: No pertinent hx Musculoskeletal: Osteoarthritis Rheumatologic: No pertinent hx Infectious disease: No pertinent hx Renal/: No pertinent hx Endocrine: Diabetes Past Surgical History Appendectomy, Arthroscopy Family History Coronary Artery Disease Social History ALCOHOL: none Drugs: None Lives: with Family ALLERGY: ASA MEDICATIONS: Refer to [facility] REVIEW OF SYSTEMS: Constitutional: No malnutrition, weight loss, cachexia. Head: No traumatic brain or head injury. Skin: No edema, or rash. Ear: No infection. Eyes: No vision loss, or diplopia. Nose: No bleeding or purulent discharges. Hearing: No hearing decrease. Neck: No injury. Cardiac: HTN Pulmonary: No COPD. GI: No GI Ulcer, GI bleeding Urinary/genital: UTI. Endocrine: Diabetes Mellitus Skeletomuscular: No muscular atrophy, deformity. Neurological: see HP. Psychiatric: Denies drug use/abuse. Otherwise, not [id number] review of systems. PHYSICAL EXAMINATION: General appearance in subacute distress. HEENT: Normocephalic and nontraumatic. Eyes, nose, ears, and throat are unremarkable. Hearing decrease. Neck is supple. No lymphadenopathy. No bruits are heard over the carotid artery. No Crepitus. Cardiovascular: S1, S2, regular rate and rhythm. Pulmonary: Clear to auscultation bilaterally. Abdomen: Bowel sounds are positive. Abdomen is soft, nontender, and nondistended. Extremities: No rash, lesions, or edema. No restriction of range of motion NEUROLOGICAL EXAMINATION: Awake. Oriented to time, place and person. PERRL. EOMI. CN: no focal findings. Muscle tone: within normal. Muscle atrophy noted in hands. Muscle strength: 5- DTR: 2 UE, 1-2 at knee. LE amputated below the knee. Plantar reflex: LE amputated. Gait: Unable to walk w/o assistance. Sensory exam: no abnormal findings. No acute cerebellar signs elicited. F-T-N test fine. Objective Objective Vital Signs Date Time Temp Pulse Resp B/P Pulse Ox O2 Delivery O2 Flow Rate FiO2 12/14/16 11:39 82 142/82 12/14/16 11:00 98.1 16 98 Room Air 98.1 Intake and Output 12/14/16 07:00 Intake Total 1320 ml Output Total 1300 ml Balance 20 ml Intake Oral 1320 ml Output Urine Total 1300 ml # Voids 1 # Bowel Movements 2 Vitals Signs Vitals VS - Last 72 Hours, by Label Date Time Temp Pulse Resp B/P Pulse Ox O2 Delivery O2 Flow Rate FiO2 12/14/16 11:39 82 142/82 12/14/16 11:39 82 142/83 12/14/16 11:00 98.1 82 16 142/87 98 Room Air 98.1 12/14/16 09:15 Room Air 12/14/16 08:32 86 169/95 12/14/16 08:00 Room Air 12/14/16 07:00 98.9 86 16 169/95 97 Room Air 98.9 12/13/16 23:00 99.0 103 18 167/96 98 99.0 12/13/16 19:32 Room Air 12/13/16 19:00 99.0 106 18 174/99 97 99.0 12/13/16 14:36 98.0 85 18 148/86 98 Room Air 98.0 12/13/16 10:55 97.8 84 18 156/88 98 Room Air 97.8 12/13/16 08:07 82 158/92 12/13/16 07:00 98.0 86 18 162/92 98 Room Air 98.0 Laboratory Laboratory Laboratory Tests Test 12/13/16 16:12 12/13/16 21:12 12/14/16 03:25 12/14/16 07:11 Glucose (Fingerstick) 332mg/dL (70-99) 285mg/dL (70-99) 344mg/dL (70-99) White Blood Count 6.3x10^3/uL (4.0-11.0) Red Blood Count 2.99x10^6/uL (4.30-5.70) Hemoglobin 9.1g/dL (13.0-17.5) Hematocrit 26.2% (39.0-53.0) Mean Corpuscular Volume 88fL (79-100) Mean Corpuscular Hemoglobin 31pg (25-35) Mean Corpuscular Hemoglobin Concent 35g/dL (31-37) Red Cell Distribution Width 17.0% (11.5-14.5) Platelet Count 190x10^3/uL (140-400) Sodium Level 140mmol/L (136-145) Potassium Level 3.7mmol/L (3.5-5.1) Chloride Level 108mmol/L (98-107) Carbon Dioxide Level 22mmol/L (21-32) Anion Gap 10 (6-14) Blood Urea Nitrogen 31mg/dL (8-26) Creatinine 1.3mg/dL (0.7-1.3) Estimated GFR (Cockcroft-Gault) 68.8 Glucose Level 365mg/dL (70-99) Calcium Level 7.8mg/dL (8.5-10.1) Magnesium Level 1.8mg/dL (1.8-2.4) Triglycerides Level 218mg/dL (0-150) Cholesterol Level 275mg/dL (0-200) LDL Cholesterol, Calculated 194mg/dL (0-100) VLDL Cholesterol, Calculated 44mg/dL (0-40) Non-HDL Cholesterol Calculated 238mg/dL (0-129) HDL Cholesterol 37mg/dL (40-60) Cholesterol/HDL Ratio 7.4 Test 12/14/16 11:34 Glucose (Fingerstick) 301mg/dL (70-99) Microbiology 12/10/16 Blood Culture - Preliminary, Resulted NO GROWTH AFTER 4 DAYS Medication Medications Current Medications Atorvastatin Calcium (Lipitor) 40 mg QHS PO ; Start 12/14/16 at 21:00 Carvedilol (Coreg) 3.125 mg BIDWMEALS PO Last administered on 12/14/16t 11:39; Start 12/14/16 at 11:30 Clopidogrel Bisulfate (Plavix) 75 mg DAILYWBKFT PO Last administered on 08:31; Start 12/13/16 at 16:00 Lisinopril (Prinivil) 10 mg DAILY PO ; Start 12/15/16 at 09:00 Lisinopril (Prinivil) 20 mg 1X ONCE PO Last administered on 12/14/16 11:39; Start 12/14/16 at 11:00; Stop 12/14/16 at 11:01; Status DC Lisinopril (Prinivil) 20 mg DAILY PO ; Start 12/14/16 at 10:00; Stop 12/14/16 at 11:01; Status DC Comment Review of Relevant I have reviewed the following items yobani (where applicable) has been applied. MERT MAGANA MD Dec 14, 2016 15:24
[2016-12-14 16:45] VITALS: BP 142/83
[2016-12-14] MEDS ORDERED: ATORVASTATIN CALCIUM 40 MG TABLET. PO SCH (21:00)
[2016-12-15] MEDS ORDERED: LISINOPRIL 10 MG TABLET PO SCH (09:00)
== END 2016-12-14 17:53 | disposition home health service (06) | DRG 64 ==
LOC: ER 07:56 → 5 SOUTH 08:56
PROVIDERS: ADMIT Internal Medicine; ATTEND Internal Medicine
DX: I63.40 Cerebral infarction due to embolism of unspecified cerebral artery (principal); G93.41 Metabolic encephalopathy; N17.0 Acute kidney failure with tubular necrosis; E43 Unspecified severe protein-calorie malnutrition; G91.9 Hydrocephalus, unspecified; K92.2 Gastrointestinal hemorrhage, unspecified; Z68.1 Body mass index [BMI] 19.9 or less, adult; G40.89 Other seizures; R56.9 Unspecified convulsions; E11.65 Type 2 diabetes mellitus with hyperglycemia; E66.3 Overweight; M19.90 Unspecified osteoarthritis, unspecified site; D64.9 Anemia, unspecified; K21.9 Gastro-esophageal reflux disease without esophagitis; E78.5 Hyperlipidemia, unspecified; I10 Essential (primary) hypertension; E11.51 Type 2 diabetes mellitus with diabetic peripheral angiopathy without gangrene; Z79.02 Long term (current) use of antithrombotics/antiplatelets; Z79.4 Long term (current) use of insulin; Z79.899 Other long term (current) drug therapy; Z82.49 Family history of ischemic heart disease and other diseases of the circulatory system; Z86.73 Personal history of transient ischemic attack (TIA), and cerebral infarction without residual deficits; Z89.511 Acquired absence of right leg below knee; Z89.512 Acquired absence of left leg below knee; Z91.14 Patient's other noncompliance with medication regimen; Z91.19 Patient's noncompliance with other medical treatment and regimen; Z71.89 Other specified counseling; Z89.612 Acquired absence of left leg above knee; Z89.611 Acquired absence of right leg above knee; Z90.49 Acquired absence of other specified parts of digestive tract; Z88.6 Allergy status to analgesic agent
CPT/HCPCS: 99285; C8929; 36415; 70450; 70551; 71010; 80048; 80053; 80061; 81001; 82553; 82607; 82947; 83036; 83605; 83735; 84484; 85027; 87040; 87641; 93005; 93880; 95816; 96361; 96374; 96375; G0481; J1815; J3490; J7030; J7060; 97110

== ENCOUNTER 2016-12-25 14:16 | Inpatient (IN) | payer OTHER ==
[~2016-12-25] VITALS: Ht 170.2 cm; Wt 65.9 kg
[~2016-12-25 14:16] MED LIST changes: -PIPE3.3710 IV; +PIPE3.3734 IV
[2016-12-25 15:26] LABS: BASO % 1 % (0-3); EOS % 1 % (0-3); HEMATOCRIT 31.6 % (39.0-53.0); LYMPH # 1.7 x10^3/uL (1.0-4.8); LYMPH % 26 % (24-48); MEAN CORPUSCULAR HEMOGLOBIN 30 pg (25-35); MEAN CORPUSCULAR HGB CONC 35 g/dL (31-37); MEAN CORPUSCULAR VOLUME 87 fL (79-100); MONO % 6 % (0-9); NEUT % 66 % (31-73); PLATELET COUNT 212 x10^3/uL (140-400); RED BLOOD COUNT 3.64 x10^6/uL (4.30-5.70); RED CELL DISTRIBUTION WIDTH 16.4 % (11.5-14.5); WHITE BLOOD COUNT 6.4 x10^3/uL (4.0-11.0)
[2016-12-25 16:27] LABS: CALCIUM 8.8 mg/dL (8.5-10.1); CREATININE 1.6 mg/dL (0.7-1.3); GFR 54.2; POTASSIUM 3.2 mmol/L (3.5-5.1)
[2016-12-25 16:32] LABS: ALBUMIN 1.7 g/dL (3.4-5.0); ALBUMIN/GLOBULIN RATIO 0.3 (1.0-1.7); TOTAL BILIRUBIN 0.2 mg/dL (0.2-1.0); TOTAL PROTEIN 8.1 g/dL (6.4-8.2)
[2016-12-25 16:50] LABS: BILIRUBIN,URINE NEGATIVE (NEG); GLUCOSE,URINE >=1000 mg/dL (NEG); NITRITE,URINE NEGATIVE (NEG); PH,URINE 7.5; PROTEIN,URINE 100 mg/dL (NEG-TRACE); UROBILINOGEN,URINE 0.2 mg/dL (0.2 mg/dL)
[2016-12-25 17:03] LABS: BACTERIA,URINE FEW /HPF (0-FEW); SQUAMOUS EPITHELIAL CELL,UR FEW /LPF; WBC,URINE 0 /HPF (0-4)
[2016-12-25] MEDS ORDERED: DEXTROSE 50% 25 GM / 50ML DISP.SYRIN. IV PRN (18:15)
[2016-12-25] MEDS ORDERED: ONDANSETRON PF 4 MG/2 ML VIAL. IV PRN (18:15)
[2016-12-25] MEDS: IV NORMAL SALINE 1000ML BAG 1,000 ML IV SCH (18:27)
--- NOTE | 2016-12-25 18:27 | PHYS DOC ---
Past Medical History Past Medical History: Diabetes-Type II, Hypertension Past Surgical History: Other Additional Past Surgical Histo: HENRRY. BKA Alcohol Use: None Drug Use: None Adult General Chief Complaint Chief Complaint: HYPERGLYCEMIA HPI HPI Patient is a 56 year old male who presents with no personal complaints, but was brought by EMS for reported altered mental status. Patient's called EMS due to reported confusion that was noticed this morning. Patient's blood sugar was registering "HIGH" on his glucometer and patient states he gave himself 15 units of short acting insulin prior to arrival. Patient's blood sugar was found to be 379 on arrival. Patient states he feels fine at this time. Patient identifies the correct month but unable to identify the current year, stating it is "1919." Patient unable to identify the current president's name. No reported fever or illness prior to arrival. was contacted and states the patient at baseline can correctly identify the year and current president. Review of Systems Review of Systems Constitutional: Denies fever or chills [] Eyes: Denies change in visual acuity, redness, or eye pain [] HENT: Denies nasal congestion or sore throat [] Respiratory: Denies cough or shortness of breath [] Cardiovascular: No additional information not addressed in HPI [] GI: Denies abdominal pain, nausea, vomiting, bloody stools or diarrhea [] : Denies dysuria or hematuria [] Musculoskeletal: Denies back pain or joint pain [] Integument: Denies rash or skin lesions [] Neurologic: Denies headache, focal weakness or sensory changes [] Endocrine: Denies polyuria or polydipsia [] Current Medications Current Medications Allergies Allergies Allergies Coded Allergies Type Severity Reaction Last Updated Verified aspirin Allergy Intermediate Nausea and Vomiting 09/29/16 Yes I S O L A T I O N *CONTACT* Allergy Unknown 09/29/16 Yes No Known Medication Allergies Allergy Unknown 09/29/16 Yes Physical Exam Physical Exam Constitutional: Well developed, well nourished, no acute distress, non-toxic appearance. [] HENT: Normocephalic, atraumatic, bilateral external ears normal, oropharynx moist, no oral exudates, nose normal. [] Eyes: PERRLA, EOMI, conjunctiva normal, no discharge. [] Neck: Normal range of motion, no tenderness, supple, no stridor. [] Cardiovascular:Heart rate regular rhythm, no murmur [] Lungs & Thorax: Bilateral breath sounds clear to auscultation [] Abdomen: Bowel sounds normal, soft, no tenderness, no masses, no pulsatile masses. [] Skin: Warm, dry, no erythema, no rash. [] Back: No tenderness, no CVA tenderness. [] Extremities: Bilateral BKA's, no edema, no tenderness. [] Neurologic: Alert, oriented person and place only, normal motor function, normal sensory function, no focal deficits noted. [] Current Patient Data Vital Signs Vital Signs Date Time Temp Pulse Resp B/P (MAP) Pulse Ox O2 Delivery O2 Flow Rate FiO2 12/25/16 17:17 84 16 183/108 (133) 99 Room Air 12/25/16 14:32 98.1 98.1 Lab Values Laboratory Tests Test 12/25/16 15:20 12/25/16 16:30 White Blood Count 6.4 x10^3/uL (4.0-11.0) Red Blood Count 3.64 x10^6/uL (4.30-5.70) L Hemoglobin 11.0 g/dL (13.0-17.5) L Hematocrit 31.6 % (39.0-53.0) L Mean Corpuscular Volume 87 fL (79-100) Mean Corpuscular Hemoglobin 30 pg (25-35) Mean Corpuscular Hemoglobin Concent 35 g/dL (31-37) Red Cell Distribution Width 16.4 % (11.5-14.5) H Platelet Count 212 x10^3/uL (140-400) Neutrophils (%) (Auto) 66 % (31-73) Lymphocytes (%) (Auto) 26 % (24-48) Monocytes (%) (Auto) 6 % (0-9) Eosinophils (%) (Auto) 1 % (0-3) Basophils (%) (Auto) 1 % (0-3) Neutrophils # (Auto) 4.2 x10^3uL (1.8-7.7) Lymphocytes # (Auto) 1.7 x10^3/uL (1.0-4.8) Monocytes # (Auto) 0.4 x10^3/uL (0.0-1.1) Eosinophils # (Auto) 0.1 x10^3/uL (0.0-0.7) Basophils # (Auto) 0.0 x10^3/uL (0.0-0.2) Sodium Level 140 mmol/L (136-145) Potassium Level 3.2 mmol/L (3.5-5.1) L Chloride Level 106 mmol/L (98-107) Carbon Dioxide Level 30 mmol/L (21-32) Anion Gap 4 (6-14) L Blood Urea Nitrogen 25 mg/dL (8-26) Creatinine 1.6 mg/dL (0.7-1.3) H Estimated GFR (Cockcroft-Gault) 54.2 BUN/Creatinine Ratio 16 (6-20) Glucose Level 326 mg/dL (70-99) H Calcium Level 8.8 mg/dL (8.5-10.1) Magnesium Level 2.0 mg/dL (1.8-2.4) Total Bilirubin 0.2 mg/dL (0.2-1.0) Aspartate Amino Transferase (AST) 26 U/L (15-37) Alanine Aminotransferase (ALT) 35 U/L (16-63) Alkaline Phosphatase 134 U/L (46-116) H Total Protein 8.1 g/dL (6.4-8.2) Albumin 1.7 g/dL (3.4-5.0) L Albumin/Globulin Ratio 0.3 (1.0-1.7) L Urine Collection Type Unknown Urine Color Straw Urine Clarity Clear Urine pH 7.5 Urine Specific [place] 1.015 Urine Protein 100 mg/dL (NEG-TRACE) Urine Glucose (UA) >=1000 mg/dL (NEG) Urine Ketones (Stick) Negative mg/dL (NEG) Urine Blood Small (NEG) Urine Nitrite Negative (NEG) Urine Bilirubin Negative (NEG) Urine Urobilinogen Dipstick 0.2 mg/dL (0.2 mg/dL) Urine Leukocyte Esterase Negative (NEG) Urine RBC 1-2 /HPF (0-2) Urine WBC 0 /HPF (0-4) Urine Squamous Epithelial Cells Few /LPF Urine Bacteria Few /HPF (0-FEW) Laboratory Tests 12/25/16 15:20 Laboratory Tests 12/25/16 15:20 EKG EKG Not performed[] Radiology/Procedures Radiology/Procedures Not performed[] Course & Med Decision Making Course & Med Decision Making Pertinent Labs and Imaging studies reviewed. (See chart for details) Patient's blood work showed elevated blood sugar of 326 in the emergency department. Patient's came to the emergency department. She states that the patient continues to display altered mental status as the patient does not have issues with confusion at baseline. After speaking with the patient and the patient's , we have agreed to admit the patient for further control of blood sugars and further monitoring. I spoke with Dr. Regalado who accepted care patient in hospital. Dragon Disclaimer Dragon Disclaimer This electronic medical record was generated, in whole or in part, using a voice recognition dictation system. Departure Departure Impression: Primary Impression: Hyperglycemia Additional Impression: Altered mental status Disposition: 09 ADMITTED INPATIENT Admitting Physician: Fariba Regalado Condition: STABLE Referrals: UNKNOWN PCP NAME (PCP) Problem Qualifiers Additional Impression: Altered mental status Altered mental status type: unspecified Qualified Codes: R41.82 - Altered mental status, unspecified JOSUE SAMANO MD December 25, 2016 18:27
--- NOTE | 2016-12-25 18:51 | RAD ---
PROCEDURE CT head without contrast HISTORY Altered mental status. Hyperglycemia. COMPARISON December 10, 2016 images are available. FINDINGS Generalized atrophy. Ventricular enlargement is again identified and is similar. No evidence of acute intracranial hemorrhage or abnormal extra-axial fluid collection. No mass effect, midline shift or abnormal extra-axial fluid collection. White matter low-density, typically is due to chronic small vessel ischemia in this age group. The partially included sinuses are clear. Orbits appear unremarkable. No acute skull abnormality. IMPRESSION 1. Chronic findings, detailed above, are stable since the prior study. 2. No acute findings have developed since that time. Electronically signed by: Jose M Rodriguez MD (December 25, 2016 18:50:37)
[2016-12-25] MEDS ORDERED: POTASSIUM CHLORIDE 20 MEQ TABLET.ER. PO ONE ×2 (20:00→22:00)
[2016-12-25 20:58] VITALS: BP 152/90
[2016-12-25] MEDS ORDERED: traMADol 50 MG TABLET PO PRN (21:15)
[2016-12-25] MEDS ORDERED: HYDROcodone/APAP 5/325MG 1 TAB TABLET PO PRN (21:15)
[2016-12-25] MEDS ORDERED: INSULIN ASPART 300 UNITS/3 ML INSULN.PEN SQ ONE ×2 (21:40→23:30)
--- NOTE | 2016-12-25 21:40 | PDOC1 ---
History and Physical Date of Admission Date of Admission DATE: 12/25/16 TIME: 21:34 Identification/Chief Complaint Chief Complaint confusion Problems: Source Source: Chart review, Patient History of Present Illness History of Present Illness Mr. Baxter, is a 56 year admit from ER for altered mental status. EMS was called by family, acute confusion today, didn't improve. Blood sugar read "high" he was given 15 short acting before EMS arrived, He was 379 glucose here. he felt well, and was hungry, some food given, and BS went up 432 he complains of acute memory problems, his says he has not been right for some time, and losing str. in his arms and hands his BKA leg prostheses no longer fit, his stumps have shrunk, and he has wounds on the stumps He reports no prior history of kidney problems Past Medical History Past Medical History disabled , lost his legs from training injury, Cardiovascular: No pertinent hx Pulmonary: No pertinent hx CENTRAL NERVOUS SYSTEM: Other GI: No pertinent hx Heme/Onc: No pertinent hx Hepatobiliary: No pertinent hx Psych: No pertinent hx Musculoskeletal: Osteoarthritis Rheumatologic: No pertinent hx Infectious disease: No pertinent hx Renal/: No pertinent hx Endocrine: Diabetes Past Surgical History Past Surgical History: Appendectomy, Arthroscopy, Other Family History Family History: Coronary Artery Disease Social History Smoke: No ALCOHOL: none Drugs: None Current Problem List Problem List Problems Medical Problems: (1) Altered mental status Status: Acute (2) Hyperglycemia Status: Acute Problems: Current Medications Current Medications Current Medications Ondansetron HCl (Zofran) 4 mg PRN Q8HRS PRN IV NAUSEA/VOMITING; Start 12/25/16 at 18:15; Stop 12/26/16 at 18:14 Sodium Chloride 1,000 ml @ 75 mls/hr [id number] IV Last administered on 12/25/16t 18:27; Start 12/25/16 at 18:30; Stop 12/26/16 at 18:29 Insulin Detemir (Levemir) 20 units QHS SQ ; Start 12/25/16 at 21:00 Insulin Aspart (Novolog) 0-7 UNITS TIDWMEALS SQ ; Start 12/26/16 at 08:00 Dextrose (Dextrose 50%-Water Syringe) 12.5 gm PRN Q15MIN PRN IV SEE COMMENTS; Start 12/25/16 at 18:15 Potassium Chloride (Klor-Con) 40 meq 1X ONCE PO Last administered on 12/25/16t 20:01; Start 12/25/16 at 20:00; Stop 12/25/16 at 20:01; Status DC Insulin Aspart (Novolog) 17 units TIDAC SQ ; Start 12/26/16 at 07:30 Enoxaparin Sodium (Lovenox 40mg Syringe) 40 mg DAILY SQ ; Start 12/26/16 at 09:00 Famotidine (Pepcid) 20 mg BID PO ; Start 12/26/16 at 09:00 Ferrous Sulfate (Feosol) 325 mg DAILY PO ; Start 12/26/16 at 09:00 Acetaminophen/ Hydrocodone Bitart (Lortab 5/325) 1 tab PRN Q6HRS PRN PO PAIN; Start 12/25/16 at 21:15 Lisinopril (Prinivil) 5 mg DAILY PO ; Start 12/26/16 at 09:00 Piperacillin Sod/ Tazobactam Sod (Zosyn) 3.375 gm Q6HRS IV ; Start 12/26/16 at 00 :00; Status UNV Tramadol HCl (Ultram) 50 mg PRN Q6HRS PRN PO PAIN; Start 12/25/16 at 21:15 Piperacillin Sod/ Tazobactam Sod 3.375 gm/Sodium Chloride 50 ml @ 100 mls/hr Q6HRS IV ; Start 12/26/16 at 00:00 Active Scripts Active Reported Piperacil-Tazobact 3.375 Gm Vl (Piperacillin Sodium/Tazobactam) 3.375 Gm Vial 3.375 Gm IV Q6HRS Ferrous Sulfate 325 Mg Tablet 300 Mg PO DAILY Tramadol Hcl 50 Mg Tablet 1 Tab PO PRN Q6HRS PRN Silver Nitrate Applicator 1 Each Stick..ea. 1 Each TP Famotidine 20 Mg Tablet 20 Mg PO BID Lisinopril 5 Mg Tablet 1 Tab PO DAILY Hydrocodone-Apap 5-325 (Hydrocodone Bit/Acetaminophen) 1 Each Tablet 1 Tab PO PRN Q6HRS PRN Lovenox (Enoxaparin Sodium) 40 Mg/0.4 Ml Disp.syrin 0.4 Ml SQ DAILY Humulin R (Insulin Regular, Human) 100 Unit/1 Ml Vial 7 Unit IJ TID Lantus Solostar (Insulin Glargine,Hum.rec.anlog) 100 Unit/1 Ml Insuln.pen 30 Unit SQ QHS Allergies Allergies: Coded Allergies: aspirin (Verified Allergy, Intermediate, Nausea and Vomiting, 09/29/16) gi bleeding also I S O L A T I O N *CONTACT* (Verified Allergy, Unknown, 09/29/16) mrsa No Known Medication Allergies (Verified Allergy, Unknown, 09/29/16) ROS General: YES: Fatigue, No: Chills, Night Sweats, Malaise, Appetite, Other PSYCHOLOGICAL ROS: YES: Hostility, Irritablity, Memory difficulties (per his ), Mood Swings, Sleep disturbances, No: Anxiety, Behavioral Disorder, Concentration difficultie, Decreased libido , Depression, Disorientation, Hallucinations, Obsessive thoughts Eyes: No Blurry vision, No Decreased vision, No Double vision, No Dry eyes, No Excessive tearing, No Eye Pain, No Itchy Eyes, No Loss of vision, No Photophobia , No Scotomata, No Uses contacts, No Uses glasses, No Other HEENT: No: Heacaches, Visual Changes, Hearing change, Nasal congestion, Nasal discharge, Oral lesions, Sinus pain, Sore Throat, Epistaxis, Sneezing, Snoring, Tinnitus, Vertigo, Vocal changes, Other Respiratory: No: Cough, Hemoptysis, Orthopnea, Pleuritic Pain, Shortness of breath, SOB with excertion, Sputum Changes, Stridor, Tachypnea, Wheezing, Other Cardiovascular: No Chest Pain, No Palpitations, No Orthopnea, No Paroxysmal Noc. Dyspnea, No Edema, No Lt Headedness, No Other Gastrointestinal: Yes Nausea, No Vomiting, No Abdominal Pain, No Diarrhea, No Constipation, No Melena, No Hematochezia, No Other Genitourinary: No Dysuria, No Frequency, No Incontinence, No Hematuria, No Retention, No Discharge, No Urgency, No Pain, No Flank Pain, No Other, No , No , No , No , No , No , No Musculoskeletal: Yes Joint Pain, Yes Joint Stiffness, Yes Joint Swelling Neurological: Yes Memory Loss (per his ), No Behavorial Changes, No Bowel/Bladder ControlChng, No Confusion, No Dizziness, No Headaches, No Impaired Coord/balance, No Numbness/Tingling, No Seizures, No Speech Problems, No Tremors, No Visual Changes, No Weakness, No Other Skin: No Dry Skin, No Eczema, No Hair Changes, No Lumps, No Mole Changes, No Mottling, No Nail Changes, No Pruritus, No Rash, No Skin Lesion Changes, No Other, No Acne Physical Exam General: Alert, Cooperative, No acute distress, Other (not well oriented) HEENT: EOMI, Mucous membr. moist/pink Lungs: Normal air movement Heart: no gallops, no murmurs Abdomen: Normal bowel sounds, Soft Extremities: No clubbing, No edema Skin: Other (small wounds on leg stumps) Neuro: Normal tone, Other (thenar muscles wasted on both hands) Psych/Mental Status: Mood NL Vitals Vitals Vital Signs Date Time Temp Pulse Resp B/P (MAP) Pulse Ox O2 Delivery O2 Flow Rate FiO2 12/25/16 20:58 98.2 72 20 152/90 (110) 98 Room Air 98.2 Labs Labs Laboratory Tests Test 12/25/16 15:20 12/25/16 16:30 White Blood Count 6.4 x10^3/uL (4.0-11.0) Red Blood Count 3.64 x10^6/uL (4.30-5.70) Hemoglobin 11.0 g/dL (13.0-17.5) Hematocrit 31.6 % (39.0-53.0) Mean Corpuscular Volume 87 fL (79-100) Mean Corpuscular Hemoglobin 30 pg (25-35) Mean Corpuscular Hemoglobin Concent 35 g/dL (31-37) Red Cell Distribution Width 16.4 % (11.5-14.5) Platelet Count 212 x10^3/uL (140-400) Neutrophils (%) (Auto) 66 % (31-73) Lymphocytes (%) (Auto) 26 % (24-48) Monocytes (%) (Auto) 6 % (0-9) Eosinophils (%) (Auto) 1 % (0-3) Basophils (%) (Auto) 1 % (0-3) Neutrophils # (Auto) 4.2 x10^3uL (1.8-7.7) Lymphocytes # (Auto) 1.7 x10^3/uL (1.0-4.8) Monocytes # (Auto) 0.4 x10^3/uL (0.0-1.1) Eosinophils # (Auto) 0.1 x10^3/uL (0.0-0.7) Basophils # (Auto) 0.0 x10^3/uL (0.0-0.2) Sodium Level 140 mmol/L (136-145) Potassium Level 3.2 mmol/L (3.5-5.1) Chloride Level 106 mmol/L (98-107) Carbon Dioxide Level 30 mmol/L (21-32) Anion Gap 4 (6-14) Blood Urea Nitrogen 25 mg/dL (8-26) Creatinine 1.6 mg/dL (0.7-1.3) Estimated GFR (Cockcroft-Gault) 54.2 BUN/Creatinine Ratio 16 (6-20) Glucose Level 326 mg/dL (70-99) Calcium Level 8.8 mg/dL (8.5-10.1) Magnesium Level 2.0 mg/dL (1.8-2.4) Total Bilirubin 0.2 mg/dL (0.2-1.0) Aspartate Amino Transf (AST/SGOT) 26 U/L (15-37) Alanine Aminotransferase (ALT/SGPT) 35 U/L (16-63) Alkaline Phosphatase 134 U/L (46-116) Total Protein 8.1 g/dL (6.4-8.2) Albumin 1.7 g/dL (3.4-5.0) Albumin/Globulin Ratio 0.3 (1.0-1.7) Urine Collection Type Unknown Urine Color Straw Urine Clarity Clear Urine pH 7.5 Urine Specific [place] 1.015 Urine Protein 100 mg/dL (NEG-TRACE) Urine Glucose (UA) >=1000 mg/dL (NEG) Urine Ketones (Stick) Negative mg/dL (NEG) Urine Blood Small (NEG) Urine Nitrite Negative (NEG) Urine Bilirubin Negative (NEG) Urine Urobilinogen Dipstick 0.2 mg/dL (0.2 mg/dL) Urine Leukocyte Esterase Negative (NEG) Urine RBC 1-2 /HPF (0-2) Urine WBC 0 /HPF (0-4) Urine Squamous Epithelial Cells Few /LPF Urine Bacteria Few /HPF (0-FEW) Laboratory Tests Test 12/25/16 15:20 12/25/16 16:30 White Blood Count 6.4 x10^3/uL (4.0-11.0) Red Blood Count 3.64 x10^6/uL (4.30-5.70) Hemoglobin 11.0 g/dL (13.0-17.5) Hematocrit 31.6 % (39.0-53.0) Mean Corpuscular Volume 87 fL (79-100) Mean Corpuscular Hemoglobin 30 pg (25-35) Mean Corpuscular Hemoglobin Concent 35 g/dL (31-37) Red Cell Distribution Width 16.4 % (11.5-14.5) Platelet Count 212 x10^3/uL (140-400) Neutrophils (%) (Auto) 66 % (31-73) Lymphocytes (%) (Auto) 26 % (24-48) Monocytes (%) (Auto) 6 % (0-9) Eosinophils (%) (Auto) 1 % (0-3) Basophils (%) (Auto) 1 % (0-3) Neutrophils # (Auto) 4.2 x10^3uL (1.8-7.7) Lymphocytes # (Auto) 1.7 x10^3/uL (1.0-4.8) Monocytes # (Auto) 0.4 x10^3/uL (0.0-1.1) Eosinophils # (Auto) 0.1 x10^3/uL (0.0-0.7) Basophils # (Auto) 0.0 x10^3/uL (0.0-0.2) Sodium Level 140 mmol/L (136-145) Potassium Level 3.2 mmol/L (3.5-5.1) Chloride Level 106 mmol/L (98-107) Carbon Dioxide Level 30 mmol/L (21-32) Anion Gap 4 (6-14) Blood Urea Nitrogen 25 mg/dL (8-26) Creatinine 1.6 mg/dL (0.7-1.3) Estimated GFR (Cockcroft-Gault) 54.2 BUN/Creatinine Ratio 16 (6-20) Glucose Level 326 mg/dL (70-99) Calcium Level 8.8 mg/dL (8.5-10.1) Magnesium Level 2.0 mg/dL (1.8-2.4) Total Bilirubin 0.2 mg/dL (0.2-1.0) Aspartate Amino Transf (AST/SGOT) 26 U/L (15-37) Alanine Aminotransferase (ALT/SGPT) 35 U/L (16-63) Alkaline Phosphatase 134 U/L (46-116) Total Protein 8.1 g/dL (6.4-8.2) Albumin 1.7 g/dL (3.4-5.0) Albumin/Globulin Ratio 0.3 (1.0-1.7) Urine Collection Type Unknown Urine Color Straw Urine Clarity Clear Urine pH 7.5 Urine Specific [place] 1.015 Urine Protein 100 mg/dL (NEG-TRACE) Urine Glucose (UA) >=1000 mg/dL (NEG) Urine Ketones (Stick) Negative mg/dL (NEG) Urine Blood Small (NEG) Urine Nitrite Negative (NEG) Urine Bilirubin Negative (NEG) Urine Urobilinogen Dipstick 0.2 mg/dL (0.2 mg/dL) Urine Leukocyte Esterase Negative (NEG) Urine RBC 1-2 /HPF (0-2) Urine WBC 0 /HPF (0-4) Urine Squamous Epithelial Cells Few /LPF Urine Bacteria Few /HPF (0-FEW) VTE Prophylaxis Ordered VTE Prophylaxis Devices: Yes VTE Pharmacological Prophylaxi: Yes Assessment/Plan Assessment/Plan ACute metabolic encephalopathy possible chronic cognitive decline or early dementia weight loss, muscle wasting, severe malnutrition, DM 1.5, hyperglycemia without DKA acute renal failure, check urine protein, cr. ratio, consult renal, check US DOMENICA CHRISTIANSON MD December 25, 2016 21:40
[2016-12-25] MEDS: INSULIN DETEMIR 300 UNITS/3 ML INSULN.PEN. SQ SCH (21:41)
[2016-12-25 23:00] VITALS: BP 149/102
[2016-12-25] MEDS ORDERED: INSULIN DETEMIR 300 UNITS/3 ML INSULN.PEN. SQ ONE (23:30)
[2016-12-25] MEDS: PIPERACILLIN/TAZOBACTAM 3.375 GM in IV NORMAL SALINE 50ML 50 ML IV SCH (23:31)
[2016-12-26] MEDS ORDERED: PIPERACILLIN/TAZOBACTAM 3.375 GM VIAL IV SCH
--- NOTE | 2016-12-26 02:42 | ACF ---
Admit Criteria Forms Admit Criteria Forms Admit Criteria Forms DIABETES Clinical Indications for Admission to Inpatient Care (Place 'X' for any and all applicable criteria): Admission is indicated by presence of ALL (if I & II) or ANY ONE (if III or IV) of the following (1)(2)(3)(4): [X]I. Diabetes is uncontrolled as indicated by ANY ONE of the following: [ ]a) Diabetic ketoacidosis as indicated by ALL of the following (8): [ ]i) Hyperglycemia (eg, plasma glucose greater than 200 mg/ dL (11.1 mmol/L)) [ ]ii) Acidosis (eg, arterial pH less than 7.30, serum bicarbonate level less than 15 mEq/L (mmol/L)) [ ]iii) Moderate ketonuria or ketonemia [ ]b) Hyperglycemic hyperosmolar state as indicated by ALL of the following(9)(10): [ ]i) Neurologic dysfunction (eg, stupor, coma, hemiparesis , seizure)(13) [ ]ii) Plasma glucose greater than 600 mg/dL (33.3 mmol/L) [ ]iii) Serum osmolality greater than 320 mOsm/kg (mmol/kg) [X]c) Severe signs or symptoms secondary to hyperglycemia indicated by ANY ONE of the following: [X]i) Altered mental status(10) [ ]ii) Significant hypovolemia or dehydration [ ]iii) Intractable nausea or vomiting [ ]iv) Unexplained fever or severe infection [ ]v) Severe electrolyte abnormality (eg, hypokalemia, hyperkalemia, hypernatremia) [ ]II. Management at other levels of care (Also use Diabetes: Observation Care as appropriate) is not feasible because of ANY ONE of the following: [ ]a) Condition was not adequately corrected with treatment at other levels of care. [ ]b) Treatment at other levels of care is not appropriate because of condition severity (eg, hyperosmolar coma). [ ]III. Contraindications and/or Inappropriate clinical situations for Observational Care in patients with Diabetes, when ANY ONE of the following is required: [ ]a) Patient require specific diagnostic workup or therapeutic intervention 22 [ ]b) Patient with abnormal vital signs or altered mental status 23 [ ]IV. General contraindications and/or Inappropriate clinical situations for Observational Care in patients with Diabetes, when ANY ONE of the following is required: [ ]a) Prediction of prolongation of LOS based on ANY ONE of the following may be considered as a contraindication for observational care 2, 3, 4, 5, 6, 7, 8, 9, 10, 11 [ ]i) Age > 65 yrs. [ ]ii) Patient arriving by ambulance [ ]iii) Patient with high acuity [ ]iv) Patient requiring vital sign monitoring [ ]v) Patient on IV medication [ ]b) Systolic blood pressures 180mmHg 3,12 [ ]c) Patient with altered mental status including delirium and other alteration of consciousness, (3) [ ]d) Patient whose discharge disposition will be to a correction home or rehabilitation home should not be managed in Emergency Department Observation Unit. CMS rule requires 3 days hospital stay before such placement.3,13 [ ]e) Patient with failure to thrive due to broad array of etiologies 3,16,17 [ ]f) Inability to ambulate 3,14 Extended stay beyond goal length of stay may be needed for(3)(20): [ ]a) Treatment of precipitating causes [ ]b) Development of hypoglycemia [ ]c) Complications of treatment [ ]d) Complications of decompensated diabetes (eg, acute gastric dilatation, persistent metabolic or neurologic derangement) [ ]e) Active Comorbidities [ ]f) Older patients( 65 years or older) The original [employer] content created by [employer] has been revised. The portions of the content which have been revised are identified through the use of italic text or in bold,and [facility] has neither reviewed nor approved the modified material. All other unmodified content is copyright [employer] [facility]. Please see references footnoted in the original [employer] [facility] edition 2016 BRENDA PARKER December 26, 2016 02:42
[2016-12-26 03:00] VITALS: BP 122/72
[2016-12-26] MEDS: PIPERACILLIN/TAZOBACTAM 3.375 GM in IV NORMAL SALINE 50ML 50 ML IV SCH ×4 (05:12→23:45)
[2016-12-26 05:49] LABS: ALBUMIN 1.5 g/dL (3.4-5.0); ALBUMIN/GLOBULIN RATIO 0.3 (1.0-1.7); CALCIUM 7.8 mg/dL (8.5-10.1); CREATININE 1.4 mg/dL (0.7-1.3); GFR 63.2; POTASSIUM 3.7 mmol/L (3.5-5.1); TOTAL BILIRUBIN 0.1 mg/dL (0.2-1.0); TOTAL PROTEIN 5.9 g/dL (6.4-8.2)
[2016-12-26 07:00] VITALS: BP 146/83
[2016-12-26] MEDS ORDERED: INSULIN ASPART 300 UNITS/3 ML INSULN.PEN SQ SCH (07:30)
[2016-12-26] MEDS: IV NORMAL SALINE 1000ML BAG 1,000 ML IV SCH (07:50)
[2016-12-26] MEDS: INSULIN ASPART 300 UNITS/3 ML INSULN.PEN SQ SCH ×6 (08:00→18:00)
[2016-12-26] MEDS: FAMOTIDINE 20 MG TABLET. PO SCH ×2 (08:01→21:17)
[2016-12-26] MEDS: FERROUS SULFATE 325 MG TABLET. PO SCH (08:01)
[2016-12-26] MEDS: ENOXAPARIN 40 MG/0.4 ML SYRINGE. SQ SCH (08:01)
[2016-12-26] MEDS: LISINOPRIL 5 MG TABLET. PO SCH (08:02)
--- NOTE | 2016-12-26 09:19 | RAD ---
Indication acute renal failure. Grayscale imaging targeted to the kidneys was performed. No similar imaging is available. The right kidney measures 12.6 x 5.5 x 4.7 cm. There is moderate right hydronephrosis and dilatation of the visualized renal pelvis. No mass is identified. The left kidney measures 14.4 x 6.3 x 5.9 cm. There is left hydronephrosis similar to the contralateral right side. The visualized renal pelvis and proximal ureter is also dilated. The urinary bladder is grossly unremarkable. Prevoid urinary bladder volume is estimated at approximately 530 cc. IMPRESSION: Bilateral hydronephrosis the etiology of which is uncertain
[2016-12-26 11:00] VITALS: BP 140/90
[2016-12-26] MEDS ORDERED: ONDANSETRON PF 4 MG/2 ML VIAL. IV PRN (11:14)
[2016-12-26] MEDS ORDERED: ACETAMINOPHEN 325 MG TABLET. PO PRN (11:15)
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
[2016-12-26 13:27] LABS: BASO % 1 % (0-3); EOS % 2 % (0-3); LYMPH # 2.6 x10^3/uL (1.0-4.8); LYMPH % 37 % (24-48); MEAN CORPUSCULAR HEMOGLOBIN 30 pg (25-35); MEAN CORPUSCULAR HGB CONC 35 g/dL (31-37); MEAN CORPUSCULAR VOLUME 88 fL (79-100); MONO % 5 % (0-9); NEUT % 56 % (31-73); PLATELET COUNT 160 x10^3/uL (140-400); RED BLOOD COUNT 3.31 x10^6/uL (4.30-5.70); RED CELL DISTRIBUTION WIDTH 16.7 % (11.5-14.5); WHITE BLOOD COUNT 7.1 x10^3/uL (4.0-11.0)
[2016-12-26 15:00] VITALS: BP 148/94
--- NOTE | 2016-12-26 15:51 | PDOC2 ---
NEUROLOGY CONSULT Date of Admission Date of Admission DATE: 12/26/16 TIME: 15:40 Reason for Consult Reason for Consult: Altered mental status Referring Physician Referring Physician: Dr. Regalado Source Source: Chart review, Patient History of Present Illness History of Present Illness The patient is a 56-year-old right-handed male admitted with altered mental status. He was hypoglycemic. He was just here 2 weeks ago with altered mental status and possible seizure activity. He had extensive workup as recorded below which did show possible small infarcts on MRI studies. He has had diabetes diagnosed 2 years ago and has had bilateral below the knee amputations. He admits that he does not follow with a PCP. He is basically failure to thrive at home with poor oral intake, elevated blood sugars, and loss of weight to the point where his prostheses do not fit right. He denies any history of stroke, seizure, or head injury. Past Medical History Cardiovascular: HTN CENTRAL NERVOUS SYSTEM: Seizure Heme/Onc: Anemia NOS Renal/: Urinary Incontinence Endocrine: Diabetes Past Surgical History Past Surgical History: Other (bilateral below the knee amputations) Family History Family History: CAD Social History Social History , quit using alcohol and tobacco Current Medications Current Medications Current Medications Ondansetron HCl (Zofran) 4 mg PRN Q8HRS PRN IV NAUSEA/VOMITING; Start 12/25/16 at 18:15; Stop 12/26/16 at 11:15; Status DC Sodium Chloride 1,000 ml @ 75 mls/hr [id number] IV Last administered on 12/25/16 18:27; Start 12/25/16 at 18:30; Stop 12/26/16 at 18:29 Insulin Detemir (Levemir) 20 units QHS SQ Last administered on 12/25/16 21:41; Start 12/25/16 at 21:00 Insulin Aspart (Novolog) 0-7 UNITS TIDWMEALS SQ Last administered on 12/26/16 12:12; Start 12/26/16 at 08:00 Dextrose (Dextrose 50%-Water Syringe) 12.5 gm PRN Q15MIN PRN IV SEE COMMENTS; Start 12/25/16 at 18:15 Potassium Chloride (Klor-Con) 40 meq 1X ONCE PO Last administered on 12/25/16 20:01; Start 12/25/16 at 20:00; Stop 12/25/16 at 20:01; Status DC Insulin Aspart (Novolog) 17 units TIDAC SQ ; Start 12/26/16 at 07:30; Stop at 07:30; Status DC Enoxaparin Sodium (Lovenox 40mg Syringe) 40 mg DAILY SQ Last administered on 08:01; Start 12/26/16 at 09:00 Famotidine (Pepcid) 20 mg BID PO Last administered on 12/26/16 08:01; Start 12/26/16 at 09:00 Ferrous Sulfate (Feosol) 325 mg DAILY PO Last administered on 12/26/16 08:01; Start 12/26/16 at 09:00 Acetaminophen/ Hydrocodone Bitart (Lortab 5/325) 1 tab PRN Q6HRS PRN PO PAIN; Start 12/25/16 at 21:15 Lisinopril (Prinivil) 5 mg DAILY PO Last administered on 12/26/16 08:02; Start 12/26/16 at 09:00 Piperacillin Sod/ Tazobactam Sod (Zosyn) 3.375 gm Q6HRS IV ; Start 12/26/16 at 00 :00; Status UNV Tramadol HCl (Ultram) 50 mg PRN Q6HRS PRN PO PAIN; Start 12/25/16 at 21:15 Piperacillin Sod/ Tazobactam Sod 3.375 gm/Sodium Chloride 50 ml @ 100 mls/hr Q6HRS IV Last administered on 12/26/16 12:08; Start 12/26/16 at 00:00 Insulin Aspart (Novolog) 17 units 1X ONCE SQ Last administered on 12/25/16 21: 41; Start 12/25/16 at 21:40; Stop 12/25/16 at 21:51; Status DC Potassium Chloride (Klor-Con) 20 meq 1X ONCE PO Last administered on 12/25/16 22:30; Start 12/25/16 at 22:00; Stop 12/25/16 at 22:01; Status DC Insulin Aspart (Novolog) 12 units TIDAC SQ Last administered on 12/26/16 12:13 ; Start 12/26/16 at 07:30 Insulin Aspart (Novolog) 20 units 1X ONCE SQ Last administered on 12/25/16 23: 36; Start 12/25/16 at 23:30; Stop 12/25/16 at 23:31; Status DC Insulin Detemir (Levemir) 12 units 1X ONCE SQ Last administered on 12/25/16 23 :36; Start 12/25/16 at 23:30; Stop 12/25/16 at 23:31; Status DC Ondansetron HCl (Zofran) 4 mg PRN Q6HRS PRN IV NAUSEA/VOMITING; Start 12/26/16 at 11:14; Stop 12/27/16 at 11:13 Acetaminophen (Tylenol) 650 mg PRN Q6HRS PRN PO pain; Start 12/26/16 at 11:15 Active Scripts Active Reported Piperacil-Tazobact 3.375 Gm Vl (Piperacillin Sodium/Tazobactam) 3.375 Gm Vial 3.375 Gm IV Q6HRS Ferrous Sulfate 325 Mg Tablet 300 Mg PO DAILY Tramadol Hcl 50 Mg Tablet 1 Tab PO PRN Q6HRS PRN Silver Nitrate Applicator 1 Each Stick..ea. 1 Each TP Famotidine 20 Mg Tablet 20 Mg PO BID Lisinopril 5 Mg Tablet 1 Tab PO DAILY Hydrocodone-Apap 5-325 (Hydrocodone Bit/Acetaminophen) 1 Each Tablet 1 Tab PO PRN Q6HRS PRN Lovenox (Enoxaparin Sodium) 40 Mg/0.4 Ml Disp.syrin 0.4 Ml SQ DAILY Humulin R (Insulin Regular, Human) 100 Unit/1 Ml Vial 7 Unit IJ TID Lantus Solostar (Insulin Glargine,Hum.rec.anlog) 100 Unit/1 Ml Insuln.pen 30 Unit SQ QHS Allergies Allergies: Coded Allergies: aspirin (Verified Allergy, Intermediate, Nausea and Vomiting, 09/29/16) gi bleeding also I S O L A T I O N *CONTACT* (Verified Allergy, Unknown, 09/29/16) mrsa No Known Medication Allergies (Verified Allergy, Unknown, 09/29/16) ROS Review of System Patient denies fevers, chills, weight loss, dyspnea, angina, abdominal pain, change in bowels, or dysuria. 14 point review of systems is negative. Physical Exam Physical Examination PHYSICAL EXAMINATION: Vital signs: see above. General appearance is normal and in no acute distress. HEENT: Normocephalic and nontraumatic. Eyes, nose, ears, and throat are unremarkable. Neck is supple. No lymphadenopathy. No bruits are heard over the carotid artery. No crepitus. NEUROLOGICAL EXAMINATION: Mental Status Examination: Alert. Oriented to time, place, and person. Answers questions and follows commends. Pupils are equal round and reactive to light and accommodation. Extraocular movements are intact. Visual field exam shows no defect on the direct confrontation. No motor or sensory deficits on the facial exam. Uvula in the midline and the soft palate elevated symmetrically. No deviation of the tongue to any direction. Gross hearing is normal. Shoulder shrug normal. Muscle tone is normal. Muscle strength is 4/5. Deep tendon reflexes are 0+ all around. [id number] test performance is accurate. Alternative movements are accurate. Gait not tested Sensory exam shows diffuse hypesthesia. No cerebellar signs are elicited. Vitals VITALS Vital Signs Date Time Temp Pulse Resp B/P (MAP) Pulse Ox O2 Delivery O2 Flow Rate FiO2 12/26/16 11:00 97.6 89 22 140/90 (107) 98 Room Air 97.6 Labs Labs Laboratory Tests Test 12/25/16 15:20 12/25/16 16:30 12/25/16 20:48 12/25/16 22:55 White Blood Count 6.4 x10^3/uL (4.0-11.0) Red Blood Count 3.64 x10^6/uL (4.30-5.70) Hemoglobin 11.0 g/dL (13.0-17.5) Hematocrit 31.6 % (39.0-53.0) Mean Corpuscular Volume 87 fL (79-100) Mean Corpuscular Hemoglobin 30 pg (25-35) Mean Corpuscular Hemoglobin Concent 35 g/dL (31-37) Red Cell Distribution Width 16.4 % (11.5-14.5) Platelet Count 212 x10^3/uL (140-400) Neutrophils (%) (Auto) 66 % (31-73) Lymphocytes (%) (Auto) 26 % (24-48) Monocytes (%) (Auto) 6 % (0-9) Eosinophils (%) (Auto) 1 % (0-3) Basophils (%) (Auto) 1 % (0-3) Neutrophils # (Auto) 4.2 x10^3uL (1.8-7.7) Lymphocytes # (Auto) 1.7 x10^3/uL (1.0-4.8) Monocytes # (Auto) 0.4 x10^3/uL (0.0-1.1) Eosinophils # (Auto) 0.1 x10^3/uL (0.0-0.7) Basophils # (Auto) 0.0 x10^3/uL (0.0-0.2) Sodium Level 140 mmol/L (136-145) Potassium Level 3.2 mmol/L (3.5-5.1) Chloride Level 106 mmol/L (98-107) Carbon Dioxide Level 30 mmol/L (21-32) Anion Gap 4 (6-14) Blood Urea Nitrogen 25 mg/dL (8-26) Creatinine 1.6 mg/dL (0.7-1.3) Estimated GFR (Cockcroft-Gault) 54.2 BUN/Creatinine Ratio 16 (6-20) Glucose Level 326 mg/dL (70-99) Calcium Level 8.8 mg/dL (8.5-10.1) Magnesium Level 2.0 mg/dL (1.8-2.4) Total Bilirubin 0.2 mg/dL (0.2-1.0) Aspartate Amino Transf (AST/SGOT) 26 U/L (15-37) Alanine Aminotransferase (ALT/SGPT) 35 U/L (16-63) Alkaline Phosphatase 134 U/L (46-116) Total Protein 8.1 g/dL (6.4-8.2) Albumin 1.7 g/dL (3.4-5.0) Albumin/Globulin Ratio 0.3 (1.0-1.7) Urine Collection Type Unknown Urine Color Straw Urine Clarity Clear Urine pH 7.5 Urine Specific [place] 1.015 Urine Protein 100 mg/dL (NEG-TRACE) Urine Glucose (UA) >=1000 mg/dL (NEG) Urine Ketones (Stick) Negative mg/dL (NEG) Urine Blood Small (NEG) Urine Nitrite Negative (NEG) Urine Bilirubin Negative (NEG) Urine Urobilinogen Dipstick 0.2 mg/dL (0.2 mg/dL) Urine Leukocyte Esterase Negative (NEG) Urine RBC 1-2 /HPF (0-2) Urine WBC 0 /HPF (0-4) Urine Squamous Epithelial Cells Few /LPF Urine Bacteria Few /HPF (0-FEW) Glucose (Fingerstick) 432 mg/dL (70-99) 417 mg/dL (70-99) Test 12/26/16 00:32 12/26/16 05:00 12/26/16 07:59 12/26/16 11:53 Glucose (Fingerstick) 342 mg/dL (70-99) 121 mg/dL (70-99) 167 mg/dL (70-99) Sodium Level 141 mmol/L (136-145) Potassium Level 3.7 mmol/L (3.5-5.1) Chloride Level 109 mmol/L (98-107) Carbon Dioxide Level 24 mmol/L (21-32) Anion Gap 8 (6-14) Blood Urea Nitrogen 25 mg/dL (8-26) Creatinine 1.4 mg/dL (0.7-1.3) Estimated GFR (Cockcroft-Gault) 63.2 BUN/Creatinine Ratio 18 (6-20) Glucose Level 163 mg/dL (70-99) Calcium Level 7.8 mg/dL (8.5-10.1) Total Bilirubin 0.1 mg/dL (0.2-1.0) Aspartate Amino Transf (AST/SGOT) 26 U/L (15-37) Alanine Aminotransferase (ALT/SGPT) 26 U/L (16-63) Alkaline Phosphatase 115 U/L (46-116) Total Protein 5.9 g/dL (6.4-8.2) Albumin 1.5 g/dL (3.4-5.0) Albumin/Globulin Ratio 0.3 (1.0-1.7) Thyroid Stimulating Hormone (TSH) 1.113 uIU/mL (0.358-3.74) Test 12/26/16 13:10 White Blood Count 7.1 x10^3/uL (4.0-11.0) Red Blood Count 3.31 x10^6/uL (4.30-5.70) Hemoglobin 10.0 g/dL (13.0-17.5) Hematocrit 29.0 % (39.0-53.0) Mean Corpuscular Volume 88 fL (79-100) Mean Corpuscular Hemoglobin 30 pg (25-35) Mean Corpuscular Hemoglobin Concent 35 g/dL (31-37) Red Cell Distribution Width 16.7 % (11.5-14.5) Platelet Count 160 x10^3/uL (140-400) Neutrophils (%) (Auto) 56 % (31-73) Lymphocytes (%) (Auto) 37 % (24-48) Monocytes (%) (Auto) 5 % (0-9) Eosinophils (%) (Auto) 2 % (0-3) Basophils (%) (Auto) 1 % (0-3) Neutrophils # (Auto) 4.0 x10^3uL (1.8-7.7) Lymphocytes # (Auto) 2.6 x10^3/uL (1.0-4.8) Monocytes # (Auto) 0.4 x10^3/uL (0.0-1.1) Eosinophils # (Auto) 0.1 x10^3/uL (0.0-0.7) Basophils # (Auto) 0.0 x10^3/uL (0.0-0.2) Erythrocyte Sedimentation Rate > 140 (0-15) Laboratory Tests Test 12/25/16 16:30 12/25/16 20:48 12/25/16 22:55 12/26/16 00:32 Urine Collection Type Unknown Urine Color Straw Urine Clarity Clear Urine pH 7.5 Urine Specific [place] 1.015 Urine Protein 100 mg/dL (NEG-TRACE) Urine Glucose (UA) >=1000 mg/dL (NEG) Urine Ketones (Stick) Negative mg/dL (NEG) Urine Blood Small (NEG) Urine Nitrite Negative (NEG) Urine Bilirubin Negative (NEG) Urine Urobilinogen Dipstick 0.2 mg/dL (0.2 mg/dL) Urine Leukocyte Esterase Negative (NEG) Urine RBC 1-2 /HPF (0-2) Urine WBC 0 /HPF (0-4) Urine Squamous Epithelial Cells Few /LPF Urine Bacteria Few /HPF (0-FEW) Glucose (Fingerstick) 432 mg/dL (70-99) 417 mg/dL (70-99) 342 mg/dL (70-99) Test 12/26/16 05:00 12/26/16 07:59 12/26/16 11:53 12/26/16 13:10 Sodium Level 141 mmol/L (136-145) Potassium Level 3.7 mmol/L (3.5-5.1) Chloride Level 109 mmol/L (98-107) Carbon Dioxide Level 24 mmol/L (21-32) Anion Gap 8 (6-14) Blood Urea Nitrogen 25 mg/dL (8-26) Creatinine 1.4 mg/dL (0.7-1.3) Estimated GFR (Cockcroft-Gault) 63.2 BUN/Creatinine Ratio 18 (6-20) Glucose Level 163 mg/dL (70-99) Calcium Level 7.8 mg/dL (8.5-10.1) Total Bilirubin 0.1 mg/dL (0.2-1.0) Aspartate Amino Transf (AST/SGOT) 26 U/L (15-37) Alanine Aminotransferase (ALT/SGPT) 26 U/L (16-63) Alkaline Phosphatase 115 U/L (46-116) Total Protein 5.9 g/dL (6.4-8.2) Albumin 1.5 g/dL (3.4-5.0) Albumin/Globulin Ratio 0.3 (1.0-1.7) Thyroid Stimulating Hormone (TSH) 1.113 uIU/mL (0.358-3.74) Glucose (Fingerstick) 121 mg/dL (70-99) 167 mg/dL (70-99) White Blood Count 7.1 x10^3/uL (4.0-11.0) Red Blood Count 3.31 x10^6/uL (4.30-5.70) Hemoglobin 10.0 g/dL (13.0-17.5) Hematocrit 29.0 % (39.0-53.0) Mean Corpuscular Volume 88 fL (79-100) Mean Corpuscular Hemoglobin 30 pg (25-35) Mean Corpuscular Hemoglobin Concent 35 g/dL (31-37) Red Cell Distribution Width 16.7 % (11.5-14.5) Platelet Count 160 x10^3/uL (140-400) Neutrophils (%) (Auto) 56 % (31-73) Lymphocytes (%) (Auto) 37 % (24-48) Monocytes (%) (Auto) 5 % (0-9) Eosinophils (%) (Auto) 2 % (0-3) Basophils (%) (Auto) 1 % (0-3) Neutrophils # (Auto) 4.0 x10^3uL (1.8-7.7) Lymphocytes # (Auto) 2.6 x10^3/uL (1.0-4.8) Monocytes # (Auto) 0.4 x10^3/uL (0.0-1.1) Eosinophils # (Auto) 0.1 x10^3/uL (0.0-0.7) Basophils # (Auto) 0.0 x10^3/uL (0.0-0.2) Erythrocyte Sedimentation Rate > 140 (0-15) B12, TSH normal 12/11/[address] head 12/25: FINDINGS Generalized atrophy. Ventricular enlargement is again identified and is similar. No evidence of acute intracranial hemorrhage or abnormal extra-axial fluid collection. No mass effect, midline shift or abnormal extra-axial fluid collection. White matter low-density, typically is due to chronic small vessel ischemia in this age group. The partially included sinuses are clear. Orbits appear unremarkable. No acute skull abnormality. IMPRESSION 1. Chronic findings, detailed above, are stable since the prior study. 2. No acute findings have developed since that time. MRI brain 12/13/16: FINDINGS There are two small foci of restricted diffusion within the right temporal lobe cortex and periventricular white matter, likely due to acute or subacute infarcts. There is also a small focus of slight increased signal on diffusion-weighted images within the left frontoparietal junction of the vertex, also likely due to a subacute infarct. There is no mass effect or midline shift. There is moderate ventricular enlargement, likely due to cerebral volume loss. There is a chronic lacunar infarct within the left basal ganglia. There are scattered foci of signal change throughout the cerebral white matter, likely due to chronic small vessel disease. There are suspected chronic cortical infarct within the bilateral occipital lobes. There is T2/FLAIR hyperintensity within the central lucero. The orbits are unremarkable. There is mild paranasal sinus mucosal thickening. There is a small amount of fluid within the mastoid air cells. There are normal flow voids within the cerebral vessels. IMPRESSION 1. Suspected small acute or subacute infarct within the right temporal lobe cortex and periventricular white matter and suspected small subacute infarct within the left frontoparietal junction at the vertex. 2. Scattered areas of signal change within the cerebral white matter, likely due to chronic small vessel disease. 3. 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 4. Moderate ventricular enlargement, likely due to cerebral atrophy. This is not clearly greater than expected for cerebral volume to suggest normal pressure hydrocephalus. 5. T2/FLAIR hyperintensity within the central lucero, a nonspecific finding. This may be due to chronic small vessel disease. However, the possibility of central pontine myelinolysis can be considered in the appropriate clinical setting. Carotid Dopplers 12/13/16, negative EE12/13/16: mild slowing of background activity Assessment/Plan Assessment/Plan Impression: Metabolic encephalopathy, not appropriate to invoke any dementia in the acute encephalopathy medical illness setting of a hospital. He is actually quite bright and alert for me now. Diabetic neuropathy Small infarcts as described above, 2 weeks ago No evidence of seizure activity. Note that EEG was negative for seizure activity last time. Note elevated sedimentation rate B12 and thyroid studies were normal last time. Recommendations: In other words, he had a full and extensive neurological workup just 2 weeks ago. Obviously current metabolic problems need to be treated first before we try to invoke dementia and a 56-year-old. He would be best served by a mental status exam in the outpatient office setting, perhaps in a few weeks, after current metabolic problems have cleared. No need for further neurological studies at this time. Thank you for letting me help with the patient's care. NADEGE JAIN MD December 26, 2016 15:51
[2016-12-26 19:00] VITALS: BP 172/89
[2016-12-26] MEDS ORDERED: INSULIN ASPART 300 UNITS/3 ML INSULN.PEN SQ ONE ×2 (21:00→21:15)
[2016-12-26] MEDS: INSULIN DETEMIR 300 UNITS/3 ML INSULN.PEN. SQ SCH (21:35)
[2016-12-26 23:00] VITALS: BP 157/85
[2016-12-27 03:12] VITALS: BP 147/74
[2016-12-27] MEDS: PIPERACILLIN/TAZOBACTAM 3.375 GM in IV NORMAL SALINE 50ML 50 ML IV SCH ×3 (05:40→17:47)
[2016-12-27 07:00] VITALS: BP 173/86
[2016-12-27] MEDS: FAMOTIDINE 20 MG TABLET. PO SCH ×2 (08:28→21:28)
[2016-12-27] MEDS: FERROUS SULFATE 325 MG TABLET. PO SCH (08:28)
[2016-12-27] MEDS: LISINOPRIL 5 MG TABLET. PO SCH (08:28)
[2016-12-27] MEDS: ENOXAPARIN 40 MG/0.4 ML SYRINGE. SQ SCH (08:30)
[2016-12-27] MEDS: INSULIN ASPART 300 UNITS/3 ML INSULN.PEN SQ SCH ×6 (08:35→16:50)
--- NOTE | 2016-12-27 10:02 | PDOC ---
PROGRESS NOTES Chief Complaint Chief Complaint cc: AMS a/p 1. Dehydration: due to hyperglycemia. 2. Encephalopathy, : unclear etioogy, possible due to hyperglycemia. 3. Diabetes mellitus, uncontrolled, currently controlled with sliding scale insulin: non compliance with medications at home., [id number] > 10. 4. Noncompliance with medication. 5. Hypertension stable. 6. Acute kidney injury, vasomotor, improving. Nephrology following, possible urology consult 7. 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 8. Peripheral vascular disease, which is chronic. 9. 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 10. Hyperlipidemia. 11. Disposition: SNU placement. History of Present Illness History of Present Illness no fever mental status better he knows that he is in [place] no confusion. Vitals Vitals Vital Signs Date Time Temp Pulse Resp B/P (MAP) Pulse Ox O2 Delivery O2 Flow Rate FiO2 12/27/16 08:28 80 173/86 12/27/16 08:00 Room Air 12/27/16 07:00 97.9 20 98 97.9 Physical Exam General: Alert, Cooperative, No acute distress, Other (oriented. ) Lungs: Clear Abdomen: Normal bowel sounds, Soft Extremities: No clubbing, No edema Skin: Other (small wounds on leg stumps) Labs LABS Laboratory Tests Test 12/26/16 11:53 12/26/16 13:10 12/26/16 16:47 12/26/16 20:16 Glucose (Fingerstick) 167 mg/dL (70-99) 346 mg/dL (70-99) 367 mg/dL (70-99) White Blood Count 7.1 x10^3/uL (4.0-11.0) Red Blood Count 3.31 x10^6/uL (4.30-5.70) Hemoglobin 10.0 g/dL (13.0-17.5) Hematocrit 29.0 % (39.0-53.0) Mean Corpuscular Volume 88 fL (79-100) Mean Corpuscular Hemoglobin 30 pg (25-35) Mean Corpuscular Hemoglobin Concent 35 g/dL (31-37) Red Cell Distribution Width 16.7 % (11.5-14.5) Platelet Count 160 x10^3/uL (140-400) Neutrophils (%) (Auto) 56 % (31-73) Lymphocytes (%) (Auto) 37 % (24-48) Monocytes (%) (Auto) 5 % (0-9) Eosinophils (%) (Auto) 2 % (0-3) Basophils (%) (Auto) 1 % (0-3) Neutrophils # (Auto) 4.0 x10^3uL (1.8-7.7) Lymphocytes # (Auto) 2.6 x10^3/uL (1.0-4.8) Monocytes # (Auto) 0.4 x10^3/uL (0.0-1.1) Eosinophils # (Auto) 0.1 x10^3/uL (0.0-0.7) Basophils # (Auto) 0.0 x10^3/uL (0.0-0.2) Erythrocyte Sedimentation Rate > 140 (0-15) Test 12/27/16 08:05 Glucose (Fingerstick) 258 mg/dL (70-99) Assessment and Plan Assessmemt and Plan Problems Medical Problems: (1) Altered mental status Status: Acute (2) Hyperglycemia Status: Acute Problems: Comment Review of Relevant I have reviewed the following items yobani (where applicable) has been applied. Labs Laboratory Tests Test 12/25/16 14:22 12/25/16 15:20 12/25/16 16:30 12/25/16 20:48 Glucose (Fingerstick) 379 mg/dL (70-99) 432 mg/dL (70-99) White Blood Count 6.4 x10^3/uL (4.0-11.0) Red Blood Count 3.64 x10^6/uL (4.30-5.70) Hemoglobin 11.0 g/dL (13.0-17.5) Hematocrit 31.6 % (39.0-53.0) Mean Corpuscular Volume 87 fL (79-100) Mean Corpuscular Hemoglobin 30 pg (25-35) Mean Corpuscular Hemoglobin Concent 35 g/dL (31-37) Red Cell Distribution Width 16.4 % (11.5-14.5) Platelet Count 212 x10^3/uL (140-400) Neutrophils (%) (Auto) 66 % (31-73) Lymphocytes (%) (Auto) 26 % (24-48) Monocytes (%) (Auto) 6 % (0-9) Eosinophils (%) (Auto) 1 % (0-3) Basophils (%) (Auto) 1 % (0-3) Neutrophils # (Auto) 4.2 x10^3uL (1.8-7.7) Lymphocytes # (Auto) 1.7 x10^3/uL (1.0-4.8) Monocytes # (Auto) 0.4 x10^3/uL (0.0-1.1) Eosinophils # (Auto) 0.1 x10^3/uL (0.0-0.7) Basophils # (Auto) 0.0 x10^3/uL (0.0-0.2) Sodium Level 140 mmol/L (136-145) Potassium Level 3.2 mmol/L (3.5-5.1) Chloride Level 106 mmol/L (98-107) Carbon Dioxide Level 30 mmol/L (21-32) Anion Gap 4 (6-14) Blood Urea Nitrogen 25 mg/dL (8-26) Creatinine 1.6 mg/dL (0.7-1.3) Estimated GFR (Cockcroft-Gault) 54.2 BUN/Creatinine Ratio 16 (6-20) Glucose Level 326 mg/dL (70-99) Calcium Level 8.8 mg/dL (8.5-10.1) Magnesium Level 2.0 mg/dL (1.8-2.4) Total Bilirubin 0.2 mg/dL (0.2-1.0) Aspartate Amino Transf (AST/SGOT) 26 U/L (15-37) Alanine Aminotransferase (ALT/SGPT) 35 U/L (16-63) Alkaline Phosphatase 134 U/L (46-116) Total Protein 8.1 g/dL (6.4-8.2) Albumin 1.7 g/dL (3.4-5.0) Albumin/Globulin Ratio 0.3 (1.0-1.7) Urine Collection Type Unknown Urine Color Straw Urine Clarity Clear Urine pH 7.5 Urine Specific [place] 1.015 Urine Protein 100 mg/dL (NEG-TRACE) Urine Glucose (UA) >=1000 mg/dL (NEG) Urine Ketones (Stick) Negative mg/dL (NEG) Urine Blood Small (NEG) Urine Nitrite Negative (NEG) Urine Bilirubin Negative (NEG) Urine Urobilinogen Dipstick 0.2 mg/dL (0.2 mg/dL) Urine Leukocyte Esterase Negative (NEG) Urine RBC 1-2 /HPF (0-2) Urine WBC 0 /HPF (0-4) Urine Squamous Epithelial Cells Few /LPF Urine Bacteria Few /HPF (0-FEW) Test 12/25/16 20:50 12/25/16 22:55 12/26/16 00:32 12/26/16 05:00 Nasal Screen MRSA (PCR) Negative (Negative) Glucose (Fingerstick) 417 mg/dL (70-99) 342 mg/dL (70-99) Sodium Level 141 mmol/L (136-145) Potassium Level 3.7 mmol/L (3.5-5.1) Chloride Level 109 mmol/L (98-107) Carbon Dioxide Level 24 mmol/L (21-32) Anion Gap 8 (6-14) Blood Urea Nitrogen 25 mg/dL (8-26) Creatinine 1.4 mg/dL (0.7-1.3) Estimated GFR (Cockcroft-Gault) 63.2 BUN/Creatinine Ratio 18 (6-20) Glucose Level 163 mg/dL (70-99) Hemoglobin A1c 10.6 % (4.8-5.6) Calcium Level 7.8 mg/dL (8.5-10.1) Total Bilirubin 0.1 mg/dL (0.2-1.0) Aspartate Amino Transf (AST/SGOT) 26 U/L (15-37) Alanine Aminotransferase (ALT/SGPT) 26 U/L (16-63) Alkaline Phosphatase 115 U/L (46-116) Total Protein 5.9 g/dL (6.4-8.2) Albumin 1.5 g/dL (3.4-5.0) Albumin/Globulin Ratio 0.3 (1.0-1.7) Thyroid Stimulating Hormone (TSH) 1.113 uIU/mL (0.358-3.74) Test 12/26/16 07:59 12/26/16 11:53 12/26/16 13:10 12/26/16 16:47 Glucose (Fingerstick) 121 mg/dL (70-99) 167 mg/dL (70-99) 346 mg/dL (70-99) White Blood Count 7.1 x10^3/uL (4.0-11.0) Red Blood Count 3.31 x10^6/uL (4.30-5.70) Hemoglobin 10.0 g/dL (13.0-17.5) Hematocrit 29.0 % (39.0-53.0) Mean Corpuscular Volume 88 fL (79-100) Mean Corpuscular Hemoglobin 30 pg (25-35) Mean Corpuscular Hemoglobin Concent 35 g/dL (31-37) Red Cell Distribution Width 16.7 % (11.5-14.5) Platelet Count 160 x10^3/uL (140-400) Neutrophils (%) (Auto) 56 % (31-73) Lymphocytes (%) (Auto) 37 % (24-48) Monocytes (%) (Auto) 5 % (0-9) Eosinophils (%) (Auto) 2 % (0-3) Basophils (%) (Auto) 1 % (0-3) Neutrophils # (Auto) 4.0 x10^3uL (1.8-7.7) Lymphocytes # (Auto) 2.6 x10^3/uL (1.0-4.8) Monocytes # (Auto) 0.4 x10^3/uL (0.0-1.1) Eosinophils # (Auto) 0.1 x10^3/uL (0.0-0.7) Basophils # (Auto) 0.0 x10^3/uL (0.0-0.2) Erythrocyte Sedimentation Rate > 140 (0-15) Test 12/26/16 20:16 12/27/16 08:05 Glucose (Fingerstick) 367 mg/dL (70-99) 258 mg/dL (70-99) Laboratory Tests Test 12/26/16 11:53 12/26/16 13:10 12/26/16 16:47 12/26/16 20:16 Glucose (Fingerstick) 167 mg/dL (70-99) 346 mg/dL (70-99) 367 mg/dL (70-99) White Blood Count 7.1 x10^3/uL (4.0-11.0) Red Blood Count 3.31 x10^6/uL (4.30-5.70) Hemoglobin 10.0 g/dL (13.0-17.5) Hematocrit 29.0 % (39.0-53.0) Mean Corpuscular Volume 88 fL (79-100) Mean Corpuscular Hemoglobin 30 pg (25-35) Mean Corpuscular Hemoglobin Concent 35 g/dL (31-37) Red Cell Distribution Width 16.7 % (11.5-14.5) Platelet Count 160 x10^3/uL (140-400) Neutrophils (%) (Auto) 56 % (31-73) Lymphocytes (%) (Auto) 37 % (24-48) Monocytes (%) (Auto) 5 % (0-9) Eosinophils (%) (Auto) 2 % (0-3) Basophils (%) (Auto) 1 % (0-3) Neutrophils # (Auto) 4.0 x10^3uL (1.8-7.7) Lymphocytes # (Auto) 2.6 x10^3/uL (1.0-4.8) Monocytes # (Auto) 0.4 x10^3/uL (0.0-1.1) Eosinophils # (Auto) 0.1 x10^3/uL (0.0-0.7) Basophils # (Auto) 0.0 x10^3/uL (0.0-0.2) Erythrocyte Sedimentation Rate > 140 (0-15) Test 12/27/16 08:05 Glucose (Fingerstick) 258 mg/dL (70-99) Medications Current Medications Ondansetron HCl (Zofran) 4 mg PRN Q8HRS PRN IV NAUSEA/VOMITING; Start 12/25/16 at 18:15; Stop 12/26/16 at 11:15; Status DC Sodium Chloride 1,000 ml @ 75 mls/hr [id number] IV Last administered on 12/25/16 18:27; Start 12/25/16 at 18:30; Stop 12/26/16 at 18:29; Status DC Insulin Detemir (Levemir) 20 units QHS SQ Last administered on 12/26/16 21:35; Start 12/25/16 at 21:00 Insulin Aspart (Novolog) 0-7 UNITS TIDWMEALS SQ Last administered on 12/27/16 08:35; Start 12/26/16 at 08:00 Dextrose (Dextrose 50%-Water Syringe) 12.5 gm PRN Q15MIN PRN IV SEE COMMENTS; Start 12/25/16 at 18:15 Potassium Chloride (Klor-Con) 40 meq 1X ONCE PO Last administered on 12/25/16 20:01; Start 12/25/16 at 20:00; Stop 12/25/16 at 20:01; Status DC Insulin Aspart (Novolog) 17 units TIDAC SQ ; Start 12/26/16 at 07:30; Stop at 07:30; Status DC Enoxaparin Sodium (Lovenox 40mg Syringe) 40 mg DAILY SQ Last administered on 08:30; Start 12/26/16 at 09:00 Famotidine (Pepcid) 20 mg BID PO Last administered on 12/27/16 08:28; Start 12/26/16 at 09:00 Ferrous Sulfate (Feosol) 325 mg DAILY PO Last administered on 12/27/16 08:28; Start 12/26/16 at 09:00 Acetaminophen/ Hydrocodone Bitart (Lortab 5/325) 1 tab PRN Q6HRS PRN PO PAIN; Start 12/25/16 at 21:15 Lisinopril (Prinivil) 5 mg DAILY PO Last administered on 12/27/16 08:28; Start 12/26/16 at 09:00 Piperacillin Sod/ Tazobactam Sod (Zosyn) 3.375 gm Q6HRS IV ; Start 12/26/16 at 00 :00; Status UNV Tramadol HCl (Ultram) 50 mg PRN Q6HRS PRN PO PAIN; Start 12/25/16 at 21:15 Piperacillin Sod/ Tazobactam Sod 3.375 gm/Sodium Chloride 50 ml @ 100 mls/hr Q6HRS IV Last administered on 12/27/16 05:40; Start 12/26/16 at 00:00 Insulin Aspart (Novolog) 17 units 1X ONCE SQ Last administered on 12/25/16 21: 41; Start 12/25/16 at 21:40; Stop 12/25/16 at 21:51; Status DC Potassium Chloride (Klor-Con) 20 meq 1X ONCE PO Last administered on 12/25/16 22:30; Start 12/25/16 at 22:00; Stop 12/25/16 at 22:01; Status DC Insulin Aspart (Novolog) 12 units TIDAC SQ Last administered on 12/27/16 08:36 ; Start 12/26/16 at 07:30 Insulin Aspart (Novolog) 20 units 1X ONCE SQ Last administered on 12/25/16 23: 36; Start 12/25/16 at 23:30; Stop 12/25/16 at 23:31; Status DC Insulin Detemir (Levemir) 12 units 1X ONCE SQ Last administered on 12/25/16 23 :36; Start 12/25/16 at 23:30; Stop 12/25/16 at 23:31; Status DC Ondansetron HCl (Zofran) 4 mg PRN Q6HRS PRN IV NAUSEA/VOMITING; Start 12/26/16 at 11:14; Stop 12/27/16 at 11:13 Acetaminophen (Tylenol) 650 mg PRN Q6HRS PRN PO pain; Start 12/26/16 at 11:15 Insulin Aspart (Novolog) 12 units ONCE ONCE SQ ; Start 12/26/16 at 21:00; Stop 12/26/16 at 21:02; Status DC Insulin Aspart (Novolog) 8 units 1X ONCE SQ Last administered on 12/26/16 21: 34; Start 12/26/16 at 21:15; Stop 12/26/16 at 21:16; Status DC Active Scripts Active Reported Piperacil-Tazobact 3.375 Gm Vl (Piperacillin Sodium/Tazobactam) 3.375 Gm Vial 3.375 Gm IV Q6HRS Ferrous Sulfate 325 Mg Tablet 300 Mg PO DAILY Tramadol Hcl 50 Mg Tablet 1 Tab PO PRN Q6HRS PRN Silver Nitrate Applicator 1 Each Stick..ea. 1 Each TP Famotidine 20 Mg Tablet 20 Mg PO BID Lisinopril 5 Mg Tablet 1 Tab PO DAILY Hydrocodone-Apap 5-325 (Hydrocodone Bit/Acetaminophen) 1 Each Tablet 1 Tab PO PRN Q6HRS PRN Lovenox (Enoxaparin Sodium) 40 Mg/0.4 Ml Disp.syrin 0.4 Ml SQ DAILY Humulin R (Insulin Regular, Human) 100 Unit/1 Ml Vial 7 Unit IJ TID Lantus Solostar (Insulin Glargine,Hum.rec.anlog) 100 Unit/1 Ml Insuln.pen 30 Unit SQ QHS Vitals/I & O Vital Sign - Last 24 Hours 12/26/16 12/26/16 12/26/16 12/26/16 11:00 15:00 19:00 20:00 Temp 97.6 98.0 98.6 97.6 98.0 98.6 Pulse 89 76 77 Resp 22 22 20 B/P (MAP) 140/90 (107) 148/94 (112) 172/89 (116) Pulse Ox 98 98 98 O2 Delivery Room Air Room Air Room Air Room Air 12/26/16 12/27/16 12/27/16 12/27/16 23:00 03:12 07:00 08:00 Temp 98.6 98.4 97.9 98.6 98.4 97.9 Pulse 80 77 80 Resp 20 20 20 B/P (MAP) 157/85 (109) 147/74 (98) 173/86 (115) Pulse Ox 95 97 98 O2 Delivery Room Air Room Air Room Air Room Air 12/27/16 08:28 Pulse 80 B/P (MAP) 173/86 Intake and Output 12/26/16 12/26/16 12/27/16 15:00 23:00 07:00 Intake Total 500 ml 1810 ml 450 ml Balance 500 ml 1810 ml 450 ml BEVERLY SIMONS MD December 27, 2016 10:02
[2016-12-27 11:18] VITALS: BP 161/85
[2016-12-27 15:00] VITALS: BP 182/114
--- NOTE | 2016-12-27 15:24 | PDOC ---
PROGRESS NOTES Assessment Assessment Metabolic encephalopathy. Subacute small right temporal lobe and left frontal and parietal lobe infracts, embolic etiology. Seizure in 12/06, provoked. Hyperglycemia DM HTN HLD Anemia. 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 Amputation below the knee. Left knee wound. Malnutrition. Muscle wasting. RECOMMENDATIONS/PLAN: He was on Plavix 75 mg daily in the previous hospitalization. Continue Lipitor 40 mg HS. Cardiology consulted before for embolic infarcts. Control hyperglycemia. Treat medical diseases. Wound care. FU with PCP. Carotid A US + Doppler : No high grade stenosis. Echo + Bubble study: Unremarkable. EEG: No epileptiform discharges or electrographic seizures. Fasting lipid panel: elevated. SUBJECTIVE: Stating doing fine. OBJECTIVE: No acute focalized motor or sensory deficits. Past Medical History Cardiovascular: HTN Pulmonary: No pertinent hx CENTRAL NERVOUS SYSTEM: Other GI: No pertinent hx Heme/Onc: No pertinent hx Hepatobiliary: No pertinent hx Psych: No pertinent hx Musculoskeletal: Osteoarthritis Rheumatologic: No pertinent hx Infectious disease: No pertinent hx Renal/: No pertinent hx Endocrine: Diabetes ALLERGY: ASA MEDICATIONS: Refer to [facility] REVIEW OF SYSTEMS: Constitutional: No malnutrition, weight loss, cachexia. Head: No traumatic brain or head injury. Skin: No edema, or rash. Ear: No infection. Eyes: No vision loss, or diplopia. Nose: No bleeding or purulent discharges. Hearing: No hearing decrease. Neck: No injury. Cardiac: HTN Pulmonary: No COPD. GI: No GI Ulcer, GI bleeding Urinary/genital: UTI. Endocrine: Diabetes Mellitus Skeletomuscular: No muscular atrophy, deformity. Neurological: see HP. Psychiatric: Denies drug use/abuse. Otherwise, not [id number] review of systems. PHYSICAL EXAMINATION: General appearance in subacute distress. HEENT: Normocephalic and nontraumatic. Eyes, nose, ears, and throat are unremarkable. Hearing decrease. Neck is supple. No lymphadenopathy. No bruits are heard over the carotid artery. No Crepitus. Cardiovascular: S1, S2, regular rate and rhythm. Pulmonary: Clear to auscultation bilaterally. Abdomen: Bowel sounds are positive. Abdomen is soft, nontender, and nondistended. Extremities: No rash, lesions, or edema. No restriction of range of motion NEUROLOGICAL EXAMINATION: Awake. Oriented to time, place and person. PERRL. EOMI. CN: no focal findings. Muscle tone: within normal. Muscle atrophy noted in hands. Muscle strength: 4 UE DTR: 2 UE, 1-2 at knee. LE amputated below the knee. Plantar reflex: LE amputated. Gait: Unable to walk w/o assistance. Sensory exam: no abnormal findings. No acute cerebellar signs elicited. F-T-N test fine. Objective Objective Vital Signs Date Time Temp Pulse Resp B/P (MAP) Pulse Ox O2 Delivery O2 Flow Rate FiO2 12/27/16 11:18 97.9 74 20 161/85 (110) 98 Room Air 97.9 Intake and Output 12/27/16 07:00 Intake Total 2760 ml Balance 2760 ml Intake Oral 1710 ml IV Total 1050 ml # Voids 8 # Bowel Movements 5 Vitals Signs Vitals VS - Last 72 Hours, by Label Date Time Temp Pulse Resp B/P (MAP) Pulse Ox O2 Delivery O2 Flow Rate FiO2 12/27/16 11:18 97.9 74 20 161/85 (110) 98 Room Air 97.9 12/27/16 08:28 80 173/86 12/27/16 08:00 Room Air 12/27/16 07:00 97.9 80 20 173/86 (115) 98 Room Air 97.9 12/27/16 03:12 98.4 77 20 147/74 (98) 97 Room Air 98.4 12/26/16 23:00 98.6 80 20 157/85 (109) 95 Room Air 98.6 12/26/16 20:00 Room Air 12/26/16 19:00 98.6 77 20 172/89 (116) 98 Room Air 98.6 12/26/16 15:00 98.0 76 22 148/94 (112) 98 Room Air 98.0 12/26/16 11:00 97.6 89 22 140/90 (107) 98 Room Air 97.6 12/26/16 08:02 76 146/83 12/26/16 08:00 Room Air 12/26/16 07:00 73 20 146/83 (104) 96 Room Air Laboratory Laboratory Laboratory Tests Test 12/26/16 16:47 12/26/16 20:16 12/27/16 08:05 12/27/16 10:01 Glucose (Fingerstick) 346 mg/dL (70-99) 367 mg/dL (70-99) 258 mg/dL (70-99) 155 mg/dL (70-99) Medication Medications Current Medications Insulin Aspart (Novolog) 8 units 1X ONCE SQ Last administered on 12/26/16t 21: 34; Start 12/26/16 at 21:15; Stop 12/26/16 at 21:16; Status DC Insulin Aspart (Novolog) 12 units ONCE ONCE SQ ; Start 12/26/16 at 21:00; Stop 12/26/16 at 21:02; Status DC Comment Review of Relevant I have reviewed the following items yobani (where applicable) has been applied. MERT MAGANA MD December 27, 2016 15:24
--- NOTE | 2016-12-27 16:32 | PDOC2 ---
CONSULT Date of Consult Date of Consult DATE: 12/27/16 TIME: 16:27 Reason for Consult Reason for Consult: THIS IS A 56 YR OLD ADMITTED WITH CONFUSION. ADMIT CR IS 1.6. HE IS NOTED TO HAVE UNCONTROLLED BLOOD SUGARS AND IN GENERAL UNCONTROLLED DM. NO C/O OF DIFFICULTY VOIDING, NO HX OF ANY KIDNEY OR BLADDER PROBLEMS. NO CKD Referring Physician Referring Physician: SAMMY Identification/Chief Complaint Chief Complaint CONFUSION Source Source: Chart review History of Present Illness Reason for Visit: ABOVE Past Medical History Cardiovascular: HTN Pulmonary: No pertinent hx CENTRAL NERVOUS SYSTEM: Seizure GI: No pertinent hx Heme/Onc: Anemia NOS Hepatobiliary: No pertinent hx Psych: No pertinent hx Musculoskeletal: Osteoarthritis Rheumatologic: No pertinent hx Infectious disease: No pertinent hx Renal/: Urinary Incontinence Endocrine: Diabetes Past Surgical History Past Surgical History: Other (bilateral below the knee amputations) Family History Family History: Coronary Artery Disease Social History No ALCOHOL: none Drugs: None Lives: with Family Current Problem List Problem List Problems Medical Problems: (1) Altered mental status Status: Acute (2) Hyperglycemia Status: Acute Current Medications Current Medications Current Medications Ondansetron HCl (Zofran) 4 mg PRN Q8HRS PRN IV NAUSEA/VOMITING; Start 12/25/16 at 18:15; Stop 12/26/16 at 11:15; Status DC Sodium Chloride 1,000 ml @ 75 mls/hr [id number] IV Last administered on 12/25/16 18:27; Start 12/25/16 at 18:30; Stop 12/26/16 at 18:29; Status DC Insulin Detemir (Levemir) 20 units QHS SQ Last administered on 12/26/16 21:35; Start 12/25/16 at 21:00 Insulin Aspart (Novolog) 0-7 UNITS TIDWMEALS SQ Last administered on 12/27/16 12:14; Start 12/26/16 at 08:00 Dextrose (Dextrose 50%-Water Syringe) 12.5 gm PRN Q15MIN PRN IV SEE COMMENTS; Start 12/25/16 at 18:15 Potassium Chloride (Klor-Con) 40 meq 1X ONCE PO Last administered on 12/25/16 20:01; Start 12/25/16 at 20:00; Stop 12/25/16 at 20:01; Status DC Insulin Aspart (Novolog) 17 units TIDAC SQ ; Start 12/26/16 at 07:30; Stop at 07:30; Status DC Enoxaparin Sodium (Lovenox 40mg Syringe) 40 mg DAILY SQ Last administered on 08:30; Start 12/26/16 at 09:00 Famotidine (Pepcid) 20 mg BID PO Last administered on 12/27/16 08:28; Start 12/26/16 at 09:00 Ferrous Sulfate (Feosol) 325 mg DAILY PO Last administered on 12/27/16 08:28; Start 12/26/16 at 09:00 Acetaminophen/ Hydrocodone Bitart (Lortab 5/325) 1 tab PRN Q6HRS PRN PO PAIN; Start 12/25/16 at 21:15 Lisinopril (Prinivil) 5 mg DAILY PO Last administered on 12/27/16 08:28; Start 12/26/16 at 09:00 Piperacillin Sod/ Tazobactam Sod (Zosyn) 3.375 gm Q6HRS IV ; Start 12/26/16 at 00 :00; Status UNV Tramadol HCl (Ultram) 50 mg PRN Q6HRS PRN PO PAIN; Start 12/25/16 at 21:15 Piperacillin Sod/ Tazobactam Sod 3.375 gm/Sodium Chloride 50 ml @ 100 mls/hr Q6HRS IV Last administered on 12/27/16 11:28; Start 12/26/16 at 00:00 Insulin Aspart (Novolog) 17 units 1X ONCE SQ Last administered on 12/25/16 21: 41; Start 12/25/16 at 21:40; Stop 12/25/16 at 21:51; Status DC Potassium Chloride (Klor-Con) 20 meq 1X ONCE PO Last administered on 12/25/16 22:30; Start 12/25/16 at 22:00; Stop 12/25/16 at 22:01; Status DC Insulin Aspart (Novolog) 12 units TIDAC SQ Last administered on 12/27/16 12:15 ; Start 12/26/16 at 07:30 Insulin Aspart (Novolog) 20 units 1X ONCE SQ Last administered on 12/25/16 23: 36; Start 12/25/16 at 23:30; Stop 12/25/16 at 23:31; Status DC Insulin Detemir (Levemir) 12 units 1X ONCE SQ Last administered on 12/25/16 23 :36; Start 12/25/16 at 23:30; Stop 12/25/16 at 23:31; Status DC Ondansetron HCl (Zofran) 4 mg PRN Q6HRS PRN IV NAUSEA/VOMITING; Start 12/26/16 at 11:14; Stop 12/27/16 at 11:13; Status DC Acetaminophen (Tylenol) 650 mg PRN Q6HRS PRN PO pain; Start 12/26/16 at 11:15 Insulin Aspart (Novolog) 12 units ONCE ONCE SQ ; Start 12/26/16 at 21:00; Stop 12/26/16 at 21:02; Status DC Insulin Aspart (Novolog) 8 units 1X ONCE SQ Last administered on 12/26/16 21: 34; Start 12/26/16 at 21:15; Stop 12/26/16 at 21:16; Status DC Active Scripts Active Reported Piperacil-Tazobact 3.375 Gm Vl (Piperacillin Sodium/Tazobactam) 3.375 Gm Vial 3.375 Gm IV Q6HRS Ferrous Sulfate 325 Mg Tablet 300 Mg PO DAILY Tramadol Hcl 50 Mg Tablet 1 Tab PO PRN Q6HRS PRN Silver Nitrate Applicator 1 Each Stick..ea. 1 Each TP Famotidine 20 Mg Tablet 20 Mg PO BID Lisinopril 5 Mg Tablet 1 Tab PO DAILY Hydrocodone-Apap 5-325 (Hydrocodone Bit/Acetaminophen) 1 Each Tablet 1 Tab PO PRN Q6HRS PRN Lovenox (Enoxaparin Sodium) 40 Mg/0.4 Ml Disp.syrin 0.4 Ml SQ DAILY Humulin R (Insulin Regular, Human) 100 Unit/1 Ml Vial 7 Unit IJ TID Lantus Solostar (Insulin Glargine,Hum.rec.anlog) 100 Unit/1 Ml Insuln.pen 30 Unit SQ QHS Allergies Allergies: Coded Allergies: aspirin (Verified Allergy, Intermediate, Nausea and Vomiting, 09/29/16) gi bleeding also I S O L A T I O N *CONTACT* (Verified Allergy, Unknown, 09/29/16) mrsa No Known Medication Allergies (Verified Allergy, Unknown, 09/29/16) ROS Review of System UNABLE TO OBTAIN Physical Exam General: Alert, Oriented X3, Cooperative, No acute distress HEENT: Atraumatic, PERRLA, EOMI, Mucous membr. moist/pink Lungs: Clear to auscultation, Normal air movement Heart: Regular rate Abdomen: Normal bowel sounds, Soft Extremities: No clubbing Skin: No breakdown Neuro: Other (CONFUSED) Psych/Mental Status: Other (CONFUSED) MUSCULOSKELETAL: No deformity Vitals VITALS Vital Signs Date Time Temp Pulse Resp B/P (MAP) Pulse Ox O2 Delivery O2 Flow Rate FiO2 12/27/16 15:00 97.9 83 18 182/114 (136) 95 Room Air 97.9 Labs Labs Laboratory Tests Test 12/25/16 16:30 12/25/16 20:48 12/25/16 20:50 12/25/16 22:55 Urine Collection Type Unknown Urine Color Straw Urine Clarity Clear Urine pH 7.5 Urine Specific Cyril 1.015 Urine Protein 100 mg/dL (NEG-TRACE) Urine Glucose (UA) >=1000 mg/dL (NEG) Urine Ketones (Stick) Negative mg/dL (NEG) Urine Blood Small (NEG) Urine Nitrite Negative (NEG) Urine Bilirubin Negative (NEG) Urine Urobilinogen Dipstick 0.2 mg/dL (0.2 mg/dL) Urine Leukocyte Esterase Negative (NEG) Urine RBC 1-2 /HPF (0-2) Urine WBC 0 /HPF (0-4) Urine Squamous Epithelial Cells Few /LPF Urine Bacteria Few /HPF (0-FEW) Glucose (Fingerstick) 432 mg/dL (70-99) 417 mg/dL (70-99) Nasal Screen MRSA (PCR) Negative (Negative) Test 12/26/16 00:32 12/26/16 05:00 12/26/16 07:59 12/26/16 11:53 Glucose (Fingerstick) 342 mg/dL (70-99) 121 mg/dL (70-99) 167 mg/dL (70-99) Sodium Level 141 mmol/L (136-145) Potassium Level 3.7 mmol/L (3.5-5.1) Chloride Level 109 mmol/L (98-107) Carbon Dioxide Level 24 mmol/L (21-32) Anion Gap 8 (6-14) Blood Urea Nitrogen 25 mg/dL (8-26) Creatinine 1.4 mg/dL (0.7-1.3) Estimated GFR (Cockcroft-Gault) 63.2 BUN/Creatinine Ratio 18 (6-20) Glucose Level 163 mg/dL (70-99) Hemoglobin A1c 10.6 % (4.8-5.6) Calcium Level 7.8 mg/dL (8.5-10.1) Total Bilirubin 0.1 mg/dL (0.2-1.0) Aspartate Amino Transf (AST/SGOT) 26 U/L (15-37) Alanine Aminotransferase (ALT/SGPT) 26 U/L (16-63) Alkaline Phosphatase 115 U/L (46-116) Total Protein 5.9 g/dL (6.4-8.2) Albumin 1.5 g/dL (3.4-5.0) Albumin/Globulin Ratio 0.3 (1.0-1.7) Thyroid Stimulating Hormone (TSH) 1.113 uIU/mL (0.358-3.74) Test 12/26/16 13:10 12/26/16 16:47 12/26/16 20:16 12/27/16 08:05 White Blood Count 7.1 x10^3/uL (4.0-11.0) Red Blood Count 3.31 x10^6/uL (4.30-5.70) Hemoglobin 10.0 g/dL (13.0-17.5) Hematocrit 29.0 % (39.0-53.0) Mean Corpuscular Volume 88 fL (79-100) Mean Corpuscular Hemoglobin 30 pg (25-35) Mean Corpuscular Hemoglobin Concent 35 g/dL (31-37) Red Cell Distribution Width 16.7 % (11.5-14.5) Platelet Count 160 x10^3/uL (140-400) Neutrophils (%) (Auto) 56 % (31-73) Lymphocytes (%) (Auto) 37 % (24-48) Monocytes (%) (Auto) 5 % (0-9) Eosinophils (%) (Auto) 2 % (0-3) Basophils (%) (Auto) 1 % (0-3) Neutrophils # (Auto) 4.0 x10^3uL (1.8-7.7) Lymphocytes # (Auto) 2.6 x10^3/uL (1.0-4.8) Monocytes # (Auto) 0.4 x10^3/uL (0.0-1.1) Eosinophils # (Auto) 0.1 x10^3/uL (0.0-0.7) Basophils # (Auto) 0.0 x10^3/uL (0.0-0.2) Erythrocyte Sedimentation Rate > 140 (0-15) Vitamin B12 Level 868 pg/mL (247-911) Glucose (Fingerstick) 346 mg/dL (70-99) 367 mg/dL (70-99) 258 mg/dL (70-99) Test 12/27/16 10:01 Glucose (Fingerstick) 155 mg/dL (70-99) Laboratory Tests Test 12/26/16 16:47 12/26/16 20:16 12/27/16 08:05 12/27/16 10:01 Glucose (Fingerstick) 346 mg/dL (70-99) 367 mg/dL (70-99) 258 mg/dL (70-99) 155 mg/dL (70-99) Assessment/Plan Assessment/Plan IMP TE PROB DEHYDRATION ? HYDRONEPHROSIS_? NEUROGENIC BLADDER UNCONTROLLED DM MET ENCEPHALOPATHY PROB PROTEINURIA PLAN WILL ASK UROLOGY TO SEE PT RESUME IVF'S MAY NEED RENAL SCAN LABS IN AM HOLD LISINOPRIL IF CR IS NOT BETTER AGAIN IN AM HUMAIRA ODELL MD December 27, 2016 16:32
[2016-12-27] MEDS: IV NORMAL SALINE 1000ML BAG 1,000 ML IV SCH (16:46)
[2016-12-27 19:00] VITALS: BP 143/81
[2016-12-27] MEDS: INSULIN DETEMIR 300 UNITS/3 ML INSULN.PEN. SQ SCH (21:31)
[2016-12-27 23:52] VITALS: BP 164/91
[2016-12-28] VITALS (10 sets, daily range): BP systolic 119–169; BP diastolic 70–101
[2016-12-28] MEDS: PIPERACILLIN/TAZOBACTAM 3.375 GM in IV NORMAL SALINE 50ML 50 ML IV SCH ×5 (00:55→23:55)
--- NOTE | 2016-12-28 01:08 | CONS ---
DATE OF CONSULTATION: 12/27/2016 The patient is in room #567. REASON FOR CONSULTATION: I saw him at the request of Dr. Regalado for rehab evaluation. HISTORY OF PRESENT ILLNESS: This is a 56-year-old male who is admitted through the Emergency Room with altered mental status. EMS was called by family with acute confusion. Blood sugar was 379 in the Emergency Room. He felt well and was hungry, ate some food, blood sugar went up to 432. He complained of acute memory problems. His says he has been right for some time after losing strength in the arms and hands. His below-knee prosthesis does not fit properly. His stump has shrunk and he had developed wounds on the stumps. The patient goes to [place] usually for his medical problems. He apparently developed poor circulation and lost his legs. The patient with known diabetes mellitus. He is KNOWN ALLERGIC TO ASPIRIN. The patient is status post appendectomy and arthroscopic surgery. Family history of coronary artery disease. He lives with his . He had a walker and a scooter to get around. He developed stump wounds about 2 months ago, and since then, not getting up. He is being followed by [facility] and home health. PHYSICAL EXAMINATION: Today revealed he is in no acute distress. He is alert and oriented to place and person, follows commands appropriately, moves all 4 extremities voluntarily. He had generalized muscle atrophy, more so in the upper extremities, hand intrinsic muscles. He had overall muscle strength being 2/5 to 2+/5 grade muscle strength. Deep tendon reflexes are absent in both upper and lower extremities. He had dressing to his right below-knee stump at the end both medially and laterally and also over lateral aspect of right knee and he had dressing to his left knee dorsal aspect over the patella with some skin irritation. The patient is supine in bed. He can roll from side to side. I have not tested the transfer skills at the present time. He is not that much cooperate to try to do things or follow commands. ASSESSMENT: A middle-aged male with diabetic peripheral neuropathy and also peripheral vascular disease, status post bilateral below-knee amputation done about 4 years ago. The patient developed right below-knee stump wounds probably from poorly-fitting prosthesis and he also developed some skin irritation over left patellar area of left knee, probably also from use of the prosthesis. The patient also presents with generalized weakness from diabetic peripheral neuropathy. RECOMMENDATIONS: He is not a candidate for new prosthesis at the present time until the wound heal. I have advised him to keep the knees in a position of extension and he might need some training how to transfer properly before letting him go home with home health followup for wound care and wound heal, he needs to be fitted with a new prosthesis if he is really interested with his significant neuropathy, I am not sure how his balance using bilateral below-knee prosthesis. Dr. Regalado, I appreciate asking me to participate in the care of this interesting patient. I will be glad to follow him with you as needed for the rehabilitation. MARIAN CASTANEDA MD DR: JOSE A/maria isabel JOB#: [id number] / [id number]
[2016-12-28 01:31] LABS: UR PROTEIN RD 196.2 mg/dL (Not Estab.)
[2016-12-28] MEDS: CLOPIDOGREL BISULFATE 75 MG TABLET PO SCH (08:00)
--- NOTE | 2016-12-28 08:03 | RAD ---
Indication: Bilateral hydronephrosis on ultrasound. Axial imaging through the abdomen and pelvis was performed without contrast. Correlation is made with recent ultrasound from 12/26/2016. Imaging through the lung bases demonstrates trace bilateral pleural effusions with mild bibasilar subsegmental atelectasis. There is also a moderate pericardial effusion noted. No discrete liver mass is identified. There appears to be stones within the gallbladder. The pancreas and spleen are unremarkable. No adrenal mass is identified. Mild right and moderate left hydronephrosis is seen involving bilateral kidneys. No calculi are detected. The aorta is calcified but nonaneurysmal. The small bowel loops are nondilated. There is moderate stool noted throughout the colon. There is sigmoid diverticulosis without evidence of acute diverticulitis. Moderate stool in the rectum is seen. The bladder is decompressed by a Turcios catheter. No free fluid in the abdomen or pelvis is identified. There is some questionable upper abdominal lymphadenopathy. Soft tissue is present and evaluation is limited without intravenous contrast. There is some prominent soft tissue in the heath hepatis and hepatogastric region and portacaval region. Shotty lymph nodes in the left para-aortic region are also seen. No pelvic lymphadenopathy is identified. Impression: 1. Small bilateral pleural effusions and pericardial effusion. 2. Cholelithiasis. 3. Bilateral hydronephrosis, left greater. 4. Findings suspicious for upper abdominal lymphadenopathy. The study is limited without intravenous contrast. PQRS Compliance Statement: One or more of the following individualized dose reduction techniques were utilized for this examination: 1. Automated exposure control 2. Adjustment of the mA and/or kV according to patient size 3. Use of iterative reconstruction technique
--- NOTE | 2016-12-28 08:45 | PDOC ---
PROGRESS NOTES Subjective Subjective Pt. with urinary retention and hydronephrosis Objective Objective Vital Signs Date Time Temp Pulse Resp B/P (MAP) Pulse Ox O2 Delivery O2 Flow Rate FiO2 12/28/16 02:58 98.6 90 18 152/87 (108) 97 Room Air 98.6 Intake and Output 12/28/16 07:00 Intake Total 1140 ml Output Total 3199 ml Balance -2059 ml Intake Oral 1090 ml IV Total 50 ml Output Urine Total 2200 ml Post Void Residual 999 ml Bladder Scan Volume Amount Physical Exam Physical Exam catalan to gravity urine clear Plan Plan of Care Pt. with bilateral hydronephrosis I discussed with the pt. his findings and I discussed the options, alternatives , benefits, risks and possible complications of cystoscopy with bilateral retrograde pyelograms and possible bilateral ureteral stent placement. Pt. understands and wishes to proceed with operation. Will proceed accordingly. Problems Medical Problems: (1) Altered mental status Status: Acute (2) Hyperglycemia Status: Acute Comment Review of Relevant I have reviewed the following items yobani (where applicable) has been applied. Labs Laboratory Tests Test 12/26/16 11:53 12/26/16 13:10 12/26/16 16:47 12/26/16 20:16 Glucose (Fingerstick) 167 mg/dL (70-99) 346 mg/dL (70-99) 367 mg/dL (70-99) White Blood Count 7.1 x10^3/uL (4.0-11.0) Red Blood Count 3.31 x10^6/uL (4.30-5.70) Hemoglobin 10.0 g/dL (13.0-17.5) Hematocrit 29.0 % (39.0-53.0) Mean Corpuscular Volume 88 fL (79-100) Mean Corpuscular Hemoglobin 30 pg (25-35) Mean Corpuscular Hemoglobin Concent 35 g/dL (31-37) Red Cell Distribution Width 16.7 % (11.5-14.5) Platelet Count 160 x10^3/uL (140-400) Neutrophils (%) (Auto) 56 % (31-73) Lymphocytes (%) (Auto) 37 % (24-48) Monocytes (%) (Auto) 5 % (0-9) Eosinophils (%) (Auto) 2 % (0-3) Basophils (%) (Auto) 1 % (0-3) Neutrophils # (Auto) 4.0 x10^3uL (1.8-7.7) Lymphocytes # (Auto) 2.6 x10^3/uL (1.0-4.8) Monocytes # (Auto) 0.4 x10^3/uL (0.0-1.1) Eosinophils # (Auto) 0.1 x10^3/uL (0.0-0.7) Basophils # (Auto) 0.0 x10^3/uL (0.0-0.2) Erythrocyte Sedimentation Rate > 140 (0-15) Vitamin B12 Level 868 pg/mL (247-911) Test 12/27/16 08:05 12/27/16 10:01 12/27/16 16:29 12/27/16 20:45 Glucose (Fingerstick) 258 mg/dL (70-99) 155 mg/dL (70-99) 159 mg/dL (70-99) 257 mg/dL (70-99) Test 12/28/16 07:13 Glucose (Fingerstick) 422 mg/dL (70-99) Laboratory Tests Test 12/27/16 10:01 12/27/16 16:29 12/27/16 20:45 12/28/16 07:13 Glucose (Fingerstick) 155 mg/dL (70-99) 159 mg/dL (70-99) 257 mg/dL (70-99) 422 mg/dL (70-99) Medications Current Medications Ondansetron HCl (Zofran) 4 mg PRN Q8HRS PRN IV NAUSEA/VOMITING; Start 12/25/16 at 18:15; Stop 12/26/16 at 11:15; Status DC Sodium Chloride 1,000 ml @ 75 mls/hr [id number] IV Last administered on 12/25/16 18:27; Start 12/25/16 at 18:30; Stop 12/26/16 at 18:29; Status DC Insulin Detemir (Levemir) 20 units QHS SQ Last administered on 12/27/16 21:31; Start 12/25/16 at 21:00 Insulin Aspart (Novolog) 0-7 UNITS TIDWMEALS SQ Last administered on 12/27/16 16:50; Start 12/26/16 at 08:00 Dextrose (Dextrose 50%-Water Syringe) 12.5 gm PRN Q15MIN PRN IV SEE COMMENTS; Start 12/25/16 at 18:15 Potassium Chloride (Klor-Con) 40 meq 1X ONCE PO Last administered on 12/25/16 20:01; Start 12/25/16 at 20:00; Stop 12/25/16 at 20:01; Status DC Insulin Aspart (Novolog) 17 units TIDAC SQ ; Start 12/26/16 at 07:30; Stop at 07:30; Status DC Enoxaparin Sodium (Lovenox 40mg Syringe) 40 mg DAILY SQ Last administered on 08:30; Start 12/26/16 at 09:00 Famotidine (Pepcid) 20 mg BID PO Last administered on 12/27/16 21:28; Start 12/26/16 at 09:00 Ferrous Sulfate (Feosol) 325 mg DAILY PO Last administered on 12/27/16 08:28; Start 12/26/16 at 09:00 Acetaminophen/ Hydrocodone Bitart (Lortab 5/325) 1 tab PRN Q6HRS PRN PO PAIN; Start 12/25/16 at 21:15 Lisinopril (Prinivil) 5 mg DAILY PO Last administered on 12/27/16 08:28; Start 12/26/16 at 09:00 Piperacillin Sod/ Tazobactam Sod (Zosyn) 3.375 gm Q6HRS IV ; Start 12/26/16 at 00 :00; Status UNV Tramadol HCl (Ultram) 50 mg PRN Q6HRS PRN PO PAIN; Start 12/25/16 at 21:15 Piperacillin Sod/ Tazobactam Sod 3.375 gm/Sodium Chloride 50 ml @ 100 mls/hr Q6HRS IV Last administered on 12/28/16 06:12; Start 12/26/16 at 00:00 Insulin Aspart (Novolog) 17 units 1X ONCE SQ Last administered on 12/25/16 21: 41; Start 12/25/16 at 21:40; Stop 12/25/16 at 21:51; Status DC Potassium Chloride (Klor-Con) 20 meq 1X ONCE PO Last administered on 12/25/16 22:30; Start 12/25/16 at 22:00; Stop 12/25/16 at 22:01; Status DC Insulin Aspart (Novolog) 12 units TIDAC SQ Last administered on 12/27/16 16:50 ; Start 12/26/16 at 07:30 Insulin Aspart (Novolog) 20 units 1X ONCE SQ Last administered on 12/25/16 23: 36; Start 12/25/16 at 23:30; Stop 12/25/16 at 23:31; Status DC Insulin Detemir (Levemir) 12 units 1X ONCE SQ Last administered on 12/25/16 23 :36; Start 12/25/16 at 23:30; Stop 12/25/16 at 23:31; Status DC Ondansetron HCl (Zofran) 4 mg PRN Q6HRS PRN IV NAUSEA/VOMITING; Start 12/26/16 at 11:14; Stop 12/27/16 at 11:13; Status DC Acetaminophen (Tylenol) 650 mg PRN Q6HRS PRN PO pain; Start 12/26/16 at 11:15 Insulin Aspart (Novolog) 12 units ONCE ONCE SQ ; Start 12/26/16 at 21:00; Stop 12/26/16 at 21:02; Status DC Insulin Aspart (Novolog) 8 units 1X ONCE SQ Last administered on 12/26/16 21: 34; Start 12/26/16 at 21:15; Stop 12/26/16 at 21:16; Status DC Sodium Chloride 1,000 ml @ 75 mls/hr [id number] IV Last administered on 12/27/16 16:46; Start 12/27/16 at 16:45 Clopidogrel Bisulfate (Plavix) 75 mg DAILYWBKFT PO ; Start 12/28/16 at 08:00 Active Scripts Active Reported Piperacil-Tazobact 3.375 Gm Vl (Piperacillin Sodium/Tazobactam) 3.375 Gm Vial 3.375 Gm IV Q6HRS Ferrous Sulfate 325 Mg Tablet 300 Mg PO DAILY Tramadol Hcl 50 Mg Tablet 1 Tab PO PRN Q6HRS PRN Silver Nitrate Applicator 1 Each Stick..ea. 1 Each TP Famotidine 20 Mg Tablet 20 Mg PO BID Lisinopril 5 Mg Tablet 1 Tab PO DAILY Hydrocodone-Apap 5-325 (Hydrocodone Bit/Acetaminophen) 1 Each Tablet 1 Tab PO PRN Q6HRS PRN Lovenox (Enoxaparin Sodium) 40 Mg/0.4 Ml Disp.syrin 0.4 Ml SQ DAILY Humulin R (Insulin Regular, Human) 100 Unit/1 Ml Vial 7 Unit IJ TID Lantus Solostar (Insulin Glargine,Hum.rec.anlog) 100 Unit/1 Ml Insuln.pen 30 Unit SQ QHS Vitals/I & O Vital Sign - Last 24 Hours 12/27/16 12/27/16 12/27/16 12/27/16 11:18 15:00 19:00 20:00 Temp 97.9 97.9 100.4 97.9 97.9 100.4 Pulse 74 83 91 Resp 20 18 20 B/P (MAP) 161/85 (110) 182/114 (136) 143/81 (101) Pulse Ox 98 95 98 O2 Delivery Room Air Room Air Room Air Room Air 12/27/16 12/28/16 23:52 02:58 Temp 100.4 98.6 100.4 98.6 Pulse 84 90 Resp 20 18 B/P (MAP) 164/91 (115) 152/87 (108) Pulse Ox 97 97 O2 Delivery Room Air Room Air Intake and Output 12/27/16 12/27/16 12/28/16 15:00 23:00 07:00 Intake Total 300 ml 600 ml 240 ml Output Total 900 ml 2299 ml Balance 300 ml -300 ml -2059 ml ELLY CHAMBERS MD December 28, 2016 08:45
[2016-12-28] MEDS: FAMOTIDINE 20 MG TABLET. PO SCH ×2 (09:00→20:46)
[2016-12-28] MEDS: ENOXAPARIN 40 MG/0.4 ML SYRINGE. SQ SCH (09:00)
[2016-12-28] MEDS: FERROUS SULFATE 325 MG TABLET. PO SCH (09:00)
[2016-12-28] MEDS: LISINOPRIL 5 MG TABLET. PO SCH (09:00)
--- NOTE | 2016-12-28 09:11 | PDOC ---
PROGRESS NOTES Subjective Subjective He c/o about too many blood draws by lab. Objective Objective Vital Signs Date Time Temp Pulse Resp B/P (MAP) Pulse Ox O2 Delivery O2 Flow Rate FiO2 12/28/16 07:05 97.9 80 18 162/88 (112) 97 Room Air 97.9 Intake and Output 12/28/16 07:00 Intake Total 1140 ml Output Total 3199 ml Balance -2059 ml Intake Oral 1090 ml IV Total 50 ml Output Urine Total 2200 ml Post Void Residual 999 ml Bladder Scan Volume Amount Physical Exam Physical Exam He is supine in bed and seems to be more co-operative with nursing.He had dressing to his right BK stump. Assessment Assessment Problems Medical Problems: (1) Altered mental status Status: Acute (2) Hyperglycemia Status: Acute Plan Plan of Care Agree with plans. Comment Review of Relevant I have reviewed the following items yobani (where applicable) has been applied. Labs Laboratory Tests Test 12/26/16 11:53 12/26/16 13:10 12/26/16 16:47 12/26/16 20:16 Glucose (Fingerstick) 167 mg/dL (70-99) 346 mg/dL (70-99) 367 mg/dL (70-99) White Blood Count 7.1 x10^3/uL (4.0-11.0) Red Blood Count 3.31 x10^6/uL (4.30-5.70) Hemoglobin 10.0 g/dL (13.0-17.5) Hematocrit 29.0 % (39.0-53.0) Mean Corpuscular Volume 88 fL (79-100) Mean Corpuscular Hemoglobin 30 pg (25-35) Mean Corpuscular Hemoglobin Concent 35 g/dL (31-37) Red Cell Distribution Width 16.7 % (11.5-14.5) Platelet Count 160 x10^3/uL (140-400) Neutrophils (%) (Auto) 56 % (31-73) Lymphocytes (%) (Auto) 37 % (24-48) Monocytes (%) (Auto) 5 % (0-9) Eosinophils (%) (Auto) 2 % (0-3) Basophils (%) (Auto) 1 % (0-3) Neutrophils # (Auto) 4.0 x10^3uL (1.8-7.7) Lymphocytes # (Auto) 2.6 x10^3/uL (1.0-4.8) Monocytes # (Auto) 0.4 x10^3/uL (0.0-1.1) Eosinophils # (Auto) 0.1 x10^3/uL (0.0-0.7) Basophils # (Auto) 0.0 x10^3/uL (0.0-0.2) Erythrocyte Sedimentation Rate > 140 (0-15) Vitamin B12 Level 868 pg/mL (247-911) Test 12/27/16 08:05 12/27/16 10:01 12/27/16 16:29 12/27/16 20:45 Glucose (Fingerstick) 258 mg/dL (70-99) 155 mg/dL (70-99) 159 mg/dL (70-99) 257 mg/dL (70-99) Test 12/28/16 07:13 Glucose (Fingerstick) 422 mg/dL (70-99) Laboratory Tests Test 12/27/16 10:01 12/27/16 16:29 12/27/16 20:45 12/28/16 07:13 Glucose (Fingerstick) 155 mg/dL (70-99) 159 mg/dL (70-99) 257 mg/dL (70-99) 422 mg/dL (70-99) Medications Current Medications Ondansetron HCl (Zofran) 4 mg PRN Q8HRS PRN IV NAUSEA/VOMITING; Start 12/25/16 at 18:15; Stop 12/26/16 at 11:15; Status DC Sodium Chloride 1,000 ml @ 75 mls/hr [id number] IV Last administered on 12/25/16 18:27; Start 12/25/16 at 18:30; Stop 12/26/16 at 18:29; Status DC Insulin Detemir (Levemir) 20 units QHS SQ Last administered on 12/27/16 21:31; Start 12/25/16 at 21:00 Insulin Aspart (Novolog) 0-7 UNITS TIDWMEALS SQ Last administered on 12/27/16 16:50; Start 12/26/16 at 08:00 Dextrose (Dextrose 50%-Water Syringe) 12.5 gm PRN Q15MIN PRN IV SEE COMMENTS; Start 12/25/16 at 18:15 Potassium Chloride (Klor-Con) 40 meq 1X ONCE PO Last administered on 12/25/16 20:01; Start 12/25/16 at 20:00; Stop 12/25/16 at 20:01; Status DC Insulin Aspart (Novolog) 17 units TIDAC SQ ; Start 12/26/16 at 07:30; Stop at 07:30; Status DC Enoxaparin Sodium (Lovenox 40mg Syringe) 40 mg DAILY SQ Last administered on 08:30; Start 12/26/16 at 09:00 Famotidine (Pepcid) 20 mg BID PO Last administered on 12/27/16 21:28; Start 12/26/16 at 09:00 Ferrous Sulfate (Feosol) 325 mg DAILY PO Last administered on 12/27/16 08:28; Start 12/26/16 at 09:00 Acetaminophen/ Hydrocodone Bitart (Lortab 5/325) 1 tab PRN Q6HRS PRN PO PAIN; Start 12/25/16 at 21:15 Lisinopril (Prinivil) 5 mg DAILY PO Last administered on 12/27/16 08:28; Start 12/26/16 at 09:00 Piperacillin Sod/ Tazobactam Sod (Zosyn) 3.375 gm Q6HRS IV ; Start 12/26/16 at 00 :00; Status UNV Tramadol HCl (Ultram) 50 mg PRN Q6HRS PRN PO PAIN; Start 12/25/16 at 21:15 Piperacillin Sod/ Tazobactam Sod 3.375 gm/Sodium Chloride 50 ml @ 100 mls/hr Q6HRS IV Last administered on 12/28/16 06:12; Start 12/26/16 at 00:00 Insulin Aspart (Novolog) 17 units 1X ONCE SQ Last administered on 12/25/16 21: 41; Start 12/25/16 at 21:40; Stop 12/25/16 at 21:51; Status DC Potassium Chloride (Klor-Con) 20 meq 1X ONCE PO Last administered on 12/25/16 22:30; Start 12/25/16 at 22:00; Stop 12/25/16 at 22:01; Status DC Insulin Aspart (Novolog) 12 units TIDAC SQ Last administered on 12/27/16 16:50 ; Start 12/26/16 at 07:30 Insulin Aspart (Novolog) 20 units 1X ONCE SQ Last administered on 12/25/16 23: 36; Start 12/25/16 at 23:30; Stop 12/25/16 at 23:31; Status DC Insulin Detemir (Levemir) 12 units 1X ONCE SQ Last administered on 12/25/16 23 :36; Start 12/25/16 at 23:30; Stop 12/25/16 at 23:31; Status DC Ondansetron HCl (Zofran) 4 mg PRN Q6HRS PRN IV NAUSEA/VOMITING; Start 12/26/16 at 11:14; Stop 12/27/16 at 11:13; Status DC Acetaminophen (Tylenol) 650 mg PRN Q6HRS PRN PO pain; Start 12/26/16 at 11:15 Insulin Aspart (Novolog) 12 units ONCE ONCE SQ ; Start 12/26/16 at 21:00; Stop 12/26/16 at 21:02; Status DC Insulin Aspart (Novolog) 8 units 1X ONCE SQ Last administered on 12/26/16 21: 34; Start 12/26/16 at 21:15; Stop 12/26/16 at 21:16; Status DC Sodium Chloride 1,000 ml @ 75 mls/hr [id number] IV Last administered on 12/27/16 16:46; Start 12/27/16 at 16:45 Clopidogrel Bisulfate (Plavix) 75 mg DAILYWBKFT PO ; Start 12/28/16 at 08:00 Active Scripts Active Reported Piperacil-Tazobact 3.375 Gm Vl (Piperacillin Sodium/Tazobactam) 3.375 Gm Vial 3.375 Gm IV Q6HRS Ferrous Sulfate 325 Mg Tablet 300 Mg PO DAILY Tramadol Hcl 50 Mg Tablet 1 Tab PO PRN Q6HRS PRN Silver Nitrate Applicator 1 Each Stick..ea. 1 Each TP Famotidine 20 Mg Tablet 20 Mg PO BID Lisinopril 5 Mg Tablet 1 Tab PO DAILY Hydrocodone-Apap 5-325 (Hydrocodone Bit/Acetaminophen) 1 Each Tablet 1 Tab PO PRN Q6HRS PRN Lovenox (Enoxaparin Sodium) 40 Mg/0.4 Ml Disp.syrin 0.4 Ml SQ DAILY Humulin R (Insulin Regular, Human) 100 Unit/1 Ml Vial 7 Unit IJ TID Lantus Solostar (Insulin Glargine,Hum.rec.anlog) 100 Unit/1 Ml Insuln.pen 30 Unit SQ QHS Vitals/I & O Vital Sign - Last 24 Hours 12/27/16 12/27/16 12/27/16 12/27/16 11:18 15:00 19:00 20:00 Temp 97.9 97.9 100.4 97.9 97.9 100.4 Pulse 74 83 91 Resp 20 18 20 B/P (MAP) 161/85 (110) 182/114 (136) 143/81 (101) Pulse Ox 98 95 98 O2 Delivery Room Air Room Air Room Air Room Air 12/27/16 12/28/16 12/28/16 23:52 02:58 07:05 Temp 100.4 98.6 97.9 100.4 98.6 97.9 Pulse 84 90 80 Resp 20 18 18 B/P (MAP) 164/91 (115) 152/87 (108) 162/88 (112) Pulse Ox 97 97 97 O2 Delivery Room Air Room Air Room Air Intake and Output 12/27/16 12/27/16 12/28/16 15:00 23:00 07:00 Intake Total 300 ml 600 ml 240 ml Output Total 900 ml 2299 ml Balance 300 ml -300 ml -2059 ml MARIAN CASTANEDA MD December 28, 2016 09:11
[2016-12-28 09:26] LABS: BASO % 0 % (0-3); EOS % 1 % (0-3); HEMATOCRIT 30.1 % (39.0-53.0); HEMOGLOBIN 10.5 g/dL (13.0-17.5); LYMPH # 2.1 x10^3/uL (1.0-4.8); LYMPH % 32 % (24-48); MEAN CORPUSCULAR HEMOGLOBIN 31 pg (25-35); MEAN CORPUSCULAR HGB CONC 35 g/dL (31-37); MEAN CORPUSCULAR VOLUME 88 fL (79-100); MONO % 7 % (0-9); NEUT % 60 % (31-73); PLATELET COUNT 147 x10^3/uL (140-400); RED BLOOD COUNT 3.44 x10^6/uL (4.30-5.70); RED CELL DISTRIBUTION WIDTH 16.5 % (11.5-14.5); WHITE BLOOD COUNT 6.4 x10^3/uL (4.0-11.0)
[2016-12-28] MEDS: INSULIN ASPART 300 UNITS/3 ML INSULN.PEN SQ SCH ×6 (09:47→18:28)
[2016-12-28 10:10] LABS: CALCIUM 7.8 mg/dL (8.5-10.1); CREATININE 1.4 mg/dL (0.7-1.3); GFR 63.2; POTASSIUM 3.7 mmol/L (3.5-5.1)
--- NOTE | 2016-12-28 12:07 | PDOC ---
Renal-Progress Notes Subjective Notes Notes NONE History of Present Illness Hx of present illness NO CHANGE Vitals Vitals Vital Signs Date Time Temp Pulse Resp B/P (MAP) Pulse Ox O2 Delivery O2 Flow Rate FiO2 12/28/16 10:30 98.8 87 18 169/85 (113) 97 Room Air 98.8 Weight Weight [ ] I.O. Intake and Output Intake and Output 12/28/16 06:59 Intake Total 1140 ml Output Total 3199 ml Balance -2059 ml Intake Oral 1090 ml IV Total 50 ml Output Urine Total 2200 ml Post Void Residual 999 ml Bladder Scan Volume Amount Labs Labs Laboratory Tests Test 12/27/16 16:29 12/27/16 20:45 12/28/16 07:13 12/28/16 09:00 Glucose (Fingerstick) 159 mg/dL (70-99) 257 mg/dL (70-99) 422 mg/dL (70-99) White Blood Count 6.4 x10^3/uL (4.0-11.0) Red Blood Count 3.44 x10^6/uL (4.30-5.70) Hemoglobin 10.5 g/dL (13.0-17.5) Hematocrit 30.1 % (39.0-53.0) Mean Corpuscular Volume 88 fL (79-100) Mean Corpuscular Hemoglobin 31 pg (25-35) Mean Corpuscular Hemoglobin Concent 35 g/dL (31-37) Red Cell Distribution Width 16.5 % (11.5-14.5) Platelet Count 147 x10^3/uL (140-400) Neutrophils (%) (Auto) 60 % (31-73) Lymphocytes (%) (Auto) 32 % (24-48) Monocytes (%) (Auto) 7 % (0-9) Eosinophils (%) (Auto) 1 % (0-3) Basophils (%) (Auto) 0 % (0-3) Neutrophils # (Auto) 3.8 x10^3uL (1.8-7.7) Lymphocytes # (Auto) 2.1 x10^3/uL (1.0-4.8) Monocytes # (Auto) 0.4 x10^3/uL (0.0-1.1) Eosinophils # (Auto) 0.1 x10^3/uL (0.0-0.7) Basophils # (Auto) 0.0 x10^3/uL (0.0-0.2) Sodium Level 140 mmol/L (136-145) Potassium Level 3.7 mmol/L (3.5-5.1) Chloride Level 107 mmol/L (98-107) Carbon Dioxide Level 25 mmol/L (21-32) Anion Gap 8 (6-14) Blood Urea Nitrogen 21 mg/dL (8-26) Creatinine 1.4 mg/dL (0.7-1.3) Estimated GFR (Cockcroft-Gault) 63.2 Glucose Level 479 mg/dL (70-99) Calcium Level 7.8 mg/dL (8.5-10.1) Test 12/28/16 11:22 Glucose (Fingerstick) 489 mg/dL (70-99) Review of Systems Constitutional: yes: no symptom reported Pulmonary: Yes no symptom reported Gastrointestional: Yes: no symptom reported Genitourinary: Yes: no symptom reported Musculoskeletal: Yes: no symptom reported Skin: Yes no symptom reported Physical Exam General Appearance: no apparent distress, GCS Respiratory: bilateral CTA Heart: S1S2, RRR Abdomen: soft, bowel sounds present Extremities: pulses present Neurology: alert, oriented Musculoskeletal: Osteoarthritis Assessment Assessment IMP HYDRO BVC-SFNYCL-MR DOWN TO 1.4 DEHYDRATION PLAN CONT WITH IVF'S CYSTO PENDING HUMAIRA ODELL MD December 28, 2016 12:07
--- NOTE | 2016-12-28 12:10 | CONS ---
DATE OF CONSULTATION: 12/28/2016 LOCATION: The patient is in room 567. HISTORY OF PRESENT ILLNESS: The patient is a very pleasant 56-year-old -[place] male who was admitted back on 12/25/2016 with confusion. The patient also was noted to have hydronephrosis on ultrasound, elevated creatinine of 1.6 on admission. The patient also found to be in urinary retention. Turcios catheter was placed. The patient states he has not had urologic problems in the past as far as he knows. He has never had any urologic operations. He does have diabetes. He has had prior below the knee amputations bilaterally. The patient had over a liter in his bladder when the Turcios catheter was placed. A CT scan also showed some possible abdominal lymphadenopathy and bilateral hydronephrosis, left greater than right. PHYSICAL EXAMINATION: GENITOURINARY: Testes are descended bilaterally. Phallus within normal limits. He has Turcios catheter to gravity drainage and secured to the thigh with a StatLock. Urine is grossly clear in the tubing. RECTAL: He has fairly good sphincter tone. Prostate smooth without nodules, overall size 15 grams. ASSESSMENT AND PLAN: Urinary retention and hydronephrosis. The patient with good urine output since Turcios catheter was placed and also possible lymphadenopathy intraabdominally. We will consult Medical Oncology, Dr. Cooper, for his lymphadenopathy. I also talked to the patient concerning his hydronephrosis and I discussed the options, alternatives, benefits, risks and possible complications of cystoscopy with bilateral retrograde pyelograms and possible bilateral ureteral stent placement if indicated. He understands this and does wish to proceed with operation. We will therefore proceed accordingly. I certainly appreciate being allowed to participate in this patient's care. ELLY CHAMBERS MD DR: JUNIOR/maria isabel JOB#: [id number] / [id number]
[2016-12-28] MEDS: IV NORMAL SALINE 1000ML BAG 1,000 ML IV SCH ×2 (12:21→20:45)
--- NOTE | 2016-12-28 12:31 | PDOC ---
Provider Note Provider Note Onc consult dictated- [id number] Possible abdominal adenopathy- Likely reactive to infection/ wounds. Abd U/S ordered for further eval. AUBREY ZAMORA DO December 28, 2016 12:31
--- NOTE | 2016-12-28 12:35 | PDOC ---
PROGRESS NOTES Chief Complaint Chief Complaint cc: AMS A/P 1. Hydroureter: good out pt with Turcios, s/p Cystoscopy, bilateral retrograde pyelograms, bilateral ureteral stent placement, Turcios catheter change. 2. Encephalopathy, : unclear etiology, possible due to hyperglycemia. resolved. appears to be at his baseline 3. Diabetes mellitus, uncontrolled, currently controlled with sliding scale insulin: non compliance with medications at home., [id number] > 10. 4. Noncompliance with medication. 5. Hypertension stable. 6. Acute kidney injury, vasomotor, improving. Nephrology following, possible urology consult 7. 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 8. Peripheral vascular disease, which is chronic. 9. hx of subacute small right temporal lobe and left frontal and parietal lobe infracts, embolic etiology: On Plavix. 10. Hyperlipidemia. 11: Lymphadenopathy: likely reactive, oncology following. 11. Disposition: SNU placement. History of Present Illness History of Present Illness no fever mental status better he knows that he is in [place] no confusion. Vitals Vitals Vital Signs Date Time Temp Pulse Resp B/P (MAP) Pulse Ox O2 Delivery O2 Flow Rate FiO2 12/28/16 10:30 98.8 87 18 169/85 (113) 97 Room Air 98.8 Physical Exam General: Alert, Oriented X3, Cooperative, No acute distress, Other (oriented. ) Heart: Regular rate, Normal S1 Lungs: Clear Abdomen: Normal bowel sounds, Soft Extremities: No clubbing Skin: No breakdown Labs LABS Laboratory Tests Test 12/27/16 16:29 12/27/16 20:45 12/28/16 07:13 12/28/16 09:00 Glucose (Fingerstick) 159 mg/dL (70-99) 257 mg/dL (70-99) 422 mg/dL (70-99) White Blood Count 6.4 x10^3/uL (4.0-11.0) Red Blood Count 3.44 x10^6/uL (4.30-5.70) Hemoglobin 10.5 g/dL (13.0-17.5) Hematocrit 30.1 % (39.0-53.0) Mean Corpuscular Volume 88 fL (79-100) Mean Corpuscular Hemoglobin 31 pg (25-35) Mean Corpuscular Hemoglobin Concent 35 g/dL (31-37) Red Cell Distribution Width 16.5 % (11.5-14.5) Platelet Count 147 x10^3/uL (140-400) Neutrophils (%) (Auto) 60 % (31-73) Lymphocytes (%) (Auto) 32 % (24-48) Monocytes (%) (Auto) 7 % (0-9) Eosinophils (%) (Auto) 1 % (0-3) Basophils (%) (Auto) 0 % (0-3) Neutrophils # (Auto) 3.8 x10^3uL (1.8-7.7) Lymphocytes # (Auto) 2.1 x10^3/uL (1.0-4.8) Monocytes # (Auto) 0.4 x10^3/uL (0.0-1.1) Eosinophils # (Auto) 0.1 x10^3/uL (0.0-0.7) Basophils # (Auto) 0.0 x10^3/uL (0.0-0.2) Sodium Level 140 mmol/L (136-145) Potassium Level 3.7 mmol/L (3.5-5.1) Chloride Level 107 mmol/L (98-107) Carbon Dioxide Level 25 mmol/L (21-32) Anion Gap 8 (6-14) Blood Urea Nitrogen 21 mg/dL (8-26) Creatinine 1.4 mg/dL (0.7-1.3) Estimated GFR (Cockcroft-Gault) 63.2 Glucose Level 479 mg/dL (70-99) Calcium Level 7.8 mg/dL (8.5-10.1) Test 12/28/16 11:22 Glucose (Fingerstick) 489 mg/dL (70-99) Assessment and Plan Assessmemt and Plan Problems Medical Problems: (1) Altered mental status Status: Acute (2) Hyperglycemia Status: Acute Problems: Comment Review of Relevant I have reviewed the following items yobani (where applicable) has been applied. Labs Laboratory Tests Test 12/26/16 13:10 12/26/16 16:47 12/26/16 20:16 12/27/16 08:05 White Blood Count 7.1 x10^3/uL (4.0-11.0) Red Blood Count 3.31 x10^6/uL (4.30-5.70) Hemoglobin 10.0 g/dL (13.0-17.5) Hematocrit 29.0 % (39.0-53.0) Mean Corpuscular Volume 88 fL (79-100) Mean Corpuscular Hemoglobin 30 pg (25-35) Mean Corpuscular Hemoglobin Concent 35 g/dL (31-37) Red Cell Distribution Width 16.7 % (11.5-14.5) Platelet Count 160 x10^3/uL (140-400) Neutrophils (%) (Auto) 56 % (31-73) Lymphocytes (%) (Auto) 37 % (24-48) Monocytes (%) (Auto) 5 % (0-9) Eosinophils (%) (Auto) 2 % (0-3) Basophils (%) (Auto) 1 % (0-3) Neutrophils # (Auto) 4.0 x10^3uL (1.8-7.7) Lymphocytes # (Auto) 2.6 x10^3/uL (1.0-4.8) Monocytes # (Auto) 0.4 x10^3/uL (0.0-1.1) Eosinophils # (Auto) 0.1 x10^3/uL (0.0-0.7) Basophils # (Auto) 0.0 x10^3/uL (0.0-0.2) Erythrocyte Sedimentation Rate > 140 (0-15) Vitamin B12 Level 868 pg/mL (247-911) Glucose (Fingerstick) 346 mg/dL (70-99) 367 mg/dL (70-99) 258 mg/dL (70-99) Test 12/27/16 10:01 12/27/16 16:29 12/27/16 20:45 12/28/16 07:13 Glucose (Fingerstick) 155 mg/dL (70-99) 159 mg/dL (70-99) 257 mg/dL (70-99) 422 mg/dL (70-99) Test 12/28/16 09:00 12/28/16 11:22 White Blood Count 6.4 x10^3/uL (4.0-11.0) Red Blood Count 3.44 x10^6/uL (4.30-5.70) Hemoglobin 10.5 g/dL (13.0-17.5) Hematocrit 30.1 % (39.0-53.0) Mean Corpuscular Volume 88 fL (79-100) Mean Corpuscular Hemoglobin 31 pg (25-35) Mean Corpuscular Hemoglobin Concent 35 g/dL (31-37) Red Cell Distribution Width 16.5 % (11.5-14.5) Platelet Count 147 x10^3/uL (140-400) Neutrophils (%) (Auto) 60 % (31-73) Lymphocytes (%) (Auto) 32 % (24-48) Monocytes (%) (Auto) 7 % (0-9) Eosinophils (%) (Auto) 1 % (0-3) Basophils (%) (Auto) 0 % (0-3) Neutrophils # (Auto) 3.8 x10^3uL (1.8-7.7) Lymphocytes # (Auto) 2.1 x10^3/uL (1.0-4.8) Monocytes # (Auto) 0.4 x10^3/uL (0.0-1.1) Eosinophils # (Auto) 0.1 x10^3/uL (0.0-0.7) Basophils # (Auto) 0.0 x10^3/uL (0.0-0.2) Sodium Level 140 mmol/L (136-145) Potassium Level 3.7 mmol/L (3.5-5.1) Chloride Level 107 mmol/L (98-107) Carbon Dioxide Level 25 mmol/L (21-32) Anion Gap 8 (6-14) Blood Urea Nitrogen 21 mg/dL (8-26) Creatinine 1.4 mg/dL (0.7-1.3) Estimated GFR (Cockcroft-Gault) 63.2 Glucose Level 479 mg/dL (70-99) Calcium Level 7.8 mg/dL (8.5-10.1) Glucose (Fingerstick) 489 mg/dL (70-99) Laboratory Tests Test 12/27/16 16:29 12/27/16 20:45 12/28/16 07:13 12/28/16 09:00 Glucose (Fingerstick) 159 mg/dL (70-99) 257 mg/dL (70-99) 422 mg/dL (70-99) White Blood Count 6.4 x10^3/uL (4.0-11.0) Red Blood Count 3.44 x10^6/uL (4.30-5.70) Hemoglobin 10.5 g/dL (13.0-17.5) Hematocrit 30.1 % (39.0-53.0) Mean Corpuscular Volume 88 fL (79-100) Mean Corpuscular Hemoglobin 31 pg (25-35) Mean Corpuscular Hemoglobin Concent 35 g/dL (31-37) Red Cell Distribution Width 16.5 % (11.5-14.5) Platelet Count 147 x10^3/uL (140-400) Neutrophils (%) (Auto) 60 % (31-73) Lymphocytes (%) (Auto) 32 % (24-48) Monocytes (%) (Auto) 7 % (0-9) Eosinophils (%) (Auto) 1 % (0-3) Basophils (%) (Auto) 0 % (0-3) Neutrophils # (Auto) 3.8 x10^3uL (1.8-7.7) Lymphocytes # (Auto) 2.1 x10^3/uL (1.0-4.8) Monocytes # (Auto) 0.4 x10^3/uL (0.0-1.1) Eosinophils # (Auto) 0.1 x10^3/uL (0.0-0.7) Basophils # (Auto) 0.0 x10^3/uL (0.0-0.2) Sodium Level 140 mmol/L (136-145) Potassium Level 3.7 mmol/L (3.5-5.1) Chloride Level 107 mmol/L (98-107) Carbon Dioxide Level 25 mmol/L (21-32) Anion Gap 8 (6-14) Blood Urea Nitrogen 21 mg/dL (8-26) Creatinine 1.4 mg/dL (0.7-1.3) Estimated GFR (Cockcroft-Gault) 63.2 Glucose Level 479 mg/dL (70-99) Calcium Level 7.8 mg/dL (8.5-10.1) Test 12/28/16 11:22 Glucose (Fingerstick) 489 mg/dL (70-99) Medications Current Medications Ondansetron HCl (Zofran) 4 mg PRN Q8HRS PRN IV NAUSEA/VOMITING; Start 12/25/16 at 18:15; Stop 12/26/16 at 11:15; Status DC Sodium Chloride 1,000 ml @ 75 mls/hr [id number] IV Last administered on 12/25/16 18:27; Start 12/25/16 at 18:30; Stop 12/26/16 at 18:29; Status DC Insulin Detemir (Levemir) 20 units QHS SQ Last administered on 12/27/16 21:31; Start 12/25/16 at 21:00 Insulin Aspart (Novolog) 0-7 UNITS TIDWMEALS SQ Last administered on 12/28/16 12:07; Start 12/26/16 at 08:00 Dextrose (Dextrose 50%-Water Syringe) 12.5 gm PRN Q15MIN PRN IV SEE COMMENTS; Start 12/25/16 at 18:15 Potassium Chloride (Klor-Con) 40 meq 1X ONCE PO Last administered on 12/25/16 20:01; Start 12/25/16 at 20:00; Stop 12/25/16 at 20:01; Status DC Insulin Aspart (Novolog) 17 units TIDAC SQ ; Start 12/26/16 at 07:30; Stop at 07:30; Status DC Enoxaparin Sodium (Lovenox 40mg Syringe) 40 mg DAILY SQ Last administered on 08:30; Start 12/26/16 at 09:00 Famotidine (Pepcid) 20 mg BID PO Last administered on 12/27/16 21:28; Start 12/26/16 at 09:00 Ferrous Sulfate (Feosol) 325 mg DAILY PO Last administered on 12/27/16 08:28; Start 12/26/16 at 09:00 Acetaminophen/ Hydrocodone Bitart (Lortab 5/325) 1 tab PRN Q6HRS PRN PO PAIN; Start 12/25/16 at 21:15 Lisinopril (Prinivil) 5 mg DAILY PO Last administered on 12/27/16 08:28; Start 12/26/16 at 09:00 Piperacillin Sod/ Tazobactam Sod (Zosyn) 3.375 gm Q6HRS IV ; Start 12/26/16 at 00 :00; Status UNV Tramadol HCl (Ultram) 50 mg PRN Q6HRS PRN PO PAIN; Start 12/25/16 at 21:15 Piperacillin Sod/ Tazobactam Sod 3.375 gm/Sodium Chloride 50 ml @ 100 mls/hr Q6HRS IV Last administered on 12/28/16 12:20; Start 12/26/16 at 00:00 Insulin Aspart (Novolog) 17 units 1X ONCE SQ Last administered on 12/25/16 21: 41; Start 12/25/16 at 21:40; Stop 12/25/16 at 21:51; Status DC Potassium Chloride (Klor-Con) 20 meq 1X ONCE PO Last administered on 12/25/16 22:30; Start 12/25/16 at 22:00; Stop 12/25/16 at 22:01; Status DC Insulin Aspart (Novolog) 12 units TIDAC SQ Last administered on 12/28/16 12:06 ; Start 12/26/16 at 07:30 Insulin Aspart (Novolog) 20 units 1X ONCE SQ Last administered on 12/25/16 23: 36; Start 12/25/16 at 23:30; Stop 12/25/16 at 23:31; Status DC Insulin Detemir (Levemir) 12 units 1X ONCE SQ Last administered on 12/25/16 23 :36; Start 12/25/16 at 23:30; Stop 12/25/16 at 23:31; Status DC Ondansetron HCl (Zofran) 4 mg PRN Q6HRS PRN IV NAUSEA/VOMITING; Start 12/26/16 at 11:14; Stop 12/27/16 at 11:13; Status DC Acetaminophen (Tylenol) 650 mg PRN Q6HRS PRN PO pain; Start 12/26/16 at 11:15 Insulin Aspart (Novolog) 12 units ONCE ONCE SQ ; Start 12/26/16 at 21:00; Stop 12/26/16 at 21:02; Status DC Insulin Aspart (Novolog) 8 units 1X ONCE SQ Last administered on 12/26/16 21: 34; Start 12/26/16 at 21:15; Stop 12/26/16 at 21:16; Status DC Sodium Chloride 1,000 ml @ 75 mls/hr [id number] IV Last administered on 12/28/16t 12:21; Start 12/27/16 at 16:45 Clopidogrel Bisulfate (Plavix) 75 mg DAILYWBKFT PO ; Start 12/28/16 at 08:00 Active Scripts Active Reported Piperacil-Tazobact 3.375 Gm Vl (Piperacillin Sodium/Tazobactam) 3.375 Gm Vial 3.375 Gm IV Q6HRS Ferrous Sulfate 325 Mg Tablet 300 Mg PO DAILY Tramadol Hcl 50 Mg Tablet 1 Tab PO PRN Q6HRS PRN Silver Nitrate Applicator 1 Each Stick..ea. 1 Each TP Famotidine 20 Mg Tablet 20 Mg PO BID Lisinopril 5 Mg Tablet 1 Tab PO DAILY Hydrocodone-Apap 5-325 (Hydrocodone Bit/Acetaminophen) 1 Each Tablet 1 Tab PO PRN Q6HRS PRN Lovenox (Enoxaparin Sodium) 40 Mg/0.4 Ml Disp.syrin 0.4 Ml SQ DAILY Humulin R (Insulin Regular, Human) 100 Unit/1 Ml Vial 7 Unit IJ TID Lantus Solostar (Insulin Glargine,Hum.rec.anlog) 100 Unit/1 Ml Insuln.pen 30 Unit SQ QHS Vitals/I & O Vital Sign - Last 24 Hours 12/27/16 12/27/16 12/27/16 12/27/16 15:00 19:00 20:00 23:52 Temp 97.9 100.4 100.4 97.9 100.4 100.4 Pulse 83 91 84 Resp 18 20 20 B/P (MAP) 182/114 (136) 143/81 (101) 164/91 (115) Pulse Ox 95 98 97 O2 Delivery Room Air Room Air Room Air Room Air 12/28/16 12/28/16 12/28/16 02:58 07:05 10:30 Temp 98.6 97.9 98.8 98.6 97.9 98.8 Pulse 90 80 87 Resp 18 18 18 B/P (MAP) 152/87 (108) 162/88 (112) 169/85 (113) Pulse Ox 97 97 97 O2 Delivery Room Air Room Air Room Air Intake and Output 12/27/16 12/27/16 12/28/16 14:59 22:59 06:59 Intake Total 300 ml 600 ml 240 ml Output Total 900 ml 2299 ml Balance 300 ml -300 ml -2059 ml BEVERLY SIMONS MD December 28, 2016 12:35
--- NOTE | 2016-12-28 13:05 | PDOC ---
PROGRESS NOTES Assessment Assessment Metabolic encephalopathy. Subacute small right temporal lobe and left frontal and parietal lobe infracts, embolic etiology. Seizure in 12/06, provoked. Hyperglycemia DM HTN HLD Anemia. 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 Amputation below the knee. Left knee wound. Malnutrition. Muscle wasting. RECOMMENDATIONS/PLAN: Continue Plavix 75 mg daily. Continue Lipitor 40 mg HS. Cardiology consulted before for embolic infarcts. Control hyperglycemia. Treat medical diseases. Wound care. FU with PCP. Carotid A US + Doppler : No high grade stenosis. Echo + Bubble study: Unremarkable. EEG: No epileptiform discharges or electrographic seizures. Fasting lipid panel: elevated. SUBJECTIVE: Stating doing fine. OBJECTIVE: No acute focalized motor or sensory deficits. Past Medical History Cardiovascular: HTN Pulmonary: No pertinent hx CENTRAL NERVOUS SYSTEM: Other GI: No pertinent hx Heme/Onc: No pertinent hx Hepatobiliary: No pertinent hx Psych: No pertinent hx Musculoskeletal: Osteoarthritis Rheumatologic: No pertinent hx Infectious disease: No pertinent hx Renal/: No pertinent hx Endocrine: Diabetes ALLERGY: ASA MEDICATIONS: Refer to [facility] REVIEW OF SYSTEMS: Constitutional: No malnutrition, weight loss, cachexia. Head: No traumatic brain or head injury. Skin: No edema, or rash. Ear: No infection. Eyes: No vision loss, or diplopia. Nose: No bleeding or purulent discharges. Hearing: No hearing decrease. Neck: No injury. Cardiac: HTN Pulmonary: No COPD. GI: No GI Ulcer, GI bleeding Urinary/genital: UTI. Endocrine: Diabetes Mellitus Skeletomuscular: No muscular atrophy, deformity. Neurological: see HP. Psychiatric: Denies drug use/abuse. Otherwise, not [id number] review of systems. PHYSICAL EXAMINATION: General appearance in subacute distress. HEENT: Normocephalic and nontraumatic. Eyes, nose, ears, and throat are unremarkable. Hearing decrease. Neck is supple. No lymphadenopathy. No bruits are heard over the carotid artery. No Crepitus. Cardiovascular: S1, S2, regular rate and rhythm. Pulmonary: Clear to auscultation bilaterally. Abdomen: Bowel sounds are positive. Abdomen is soft, nontender, and nondistended. Extremities: No rash, lesions, or edema. No restriction of range of motion NEUROLOGICAL EXAMINATION: Awake. Oriented to time, place and person. PERRL. EOMI. CN: no focal findings. Muscle tone: within normal. Muscle atrophy noted in hands. Muscle strength: 4 UE DTR: 2 UE, 1-2 at knee. LE amputated below the knee. Plantar reflex: LE amputated. Gait: Unable to walk w/o assistance. Sensory exam: no abnormal findings. No acute cerebellar signs elicited. F-T-N test fine. Muscle atrophy noted in hands and legs. Objective Objective Vital Signs Date Time Temp Pulse Resp B/P (MAP) Pulse Ox O2 Delivery O2 Flow Rate FiO2 12/28/16 10:30 98.8 87 18 169/85 (113) 97 Room Air 98.8 Intake and Output 12/28/16 07:00 Intake Total 1140 ml Output Total 3199 ml Balance -2059 ml Intake Oral 1090 ml IV Total 50 ml Output Urine Total 2200 ml Post Void Residual 999 ml Bladder Scan Volume Amount Vitals Signs Vitals VS - Last 72 Hours, by Label Date Time Temp Pulse Resp B/P (MAP) Pulse Ox O2 Delivery O2 Flow Rate FiO2 12/28/16 10:30 98.8 87 18 169/85 (113) 97 Room Air 98.8 12/28/16 07:55 Room Air 12/28/16 07:05 97.9 80 18 162/88 (112) 97 Room Air 97.9 12/28/16 02:58 98.6 90 18 152/87 (108) 97 Room Air 98.6 12/27/16 23:52 100.4 84 20 164/91 (115) 97 Room Air 100.4 12/27/16 20:00 Room Air 12/27/16 19:00 100.4 91 20 143/81 (101) 98 Room Air 100.4 12/27/16 15:00 97.9 83 18 182/114 (136) 95 Room Air 97.9 12/27/16 11:18 97.9 74 20 161/85 (110) 98 Room Air 97.9 12/27/16 08:28 80 173/86 12/27/16 08:00 Room Air 12/27/16 07:00 97.9 80 20 173/86 (115) 98 Room Air 97.9 Laboratory Laboratory Laboratory Tests Test 12/27/16 16:29 12/27/16 20:45 12/28/16 07:13 12/28/16 09:00 Glucose (Fingerstick) 159 mg/dL (70-99) 257 mg/dL (70-99) 422 mg/dL (70-99) White Blood Count 6.4 x10^3/uL (4.0-11.0) Red Blood Count 3.44 x10^6/uL (4.30-5.70) Hemoglobin 10.5 g/dL (13.0-17.5) Hematocrit 30.1 % (39.0-53.0) Mean Corpuscular Volume 88 fL (79-100) Mean Corpuscular Hemoglobin 31 pg (25-35) Mean Corpuscular Hemoglobin Concent 35 g/dL (31-37) Red Cell Distribution Width 16.5 % (11.5-14.5) Platelet Count 147 x10^3/uL (140-400) Neutrophils (%) (Auto) 60 % (31-73) Lymphocytes (%) (Auto) 32 % (24-48) Monocytes (%) (Auto) 7 % (0-9) Eosinophils (%) (Auto) 1 % (0-3) Basophils (%) (Auto) 0 % (0-3) Neutrophils # (Auto) 3.8 x10^3uL (1.8-7.7) Lymphocytes # (Auto) 2.1 x10^3/uL (1.0-4.8) Monocytes # (Auto) 0.4 x10^3/uL (0.0-1.1) Eosinophils # (Auto) 0.1 x10^3/uL (0.0-0.7) Basophils # (Auto) 0.0 x10^3/uL (0.0-0.2) Sodium Level 140 mmol/L (136-145) Potassium Level 3.7 mmol/L (3.5-5.1) Chloride Level 107 mmol/L (98-107) Carbon Dioxide Level 25 mmol/L (21-32) Anion Gap 8 (6-14) Blood Urea Nitrogen 21 mg/dL (8-26) Creatinine 1.4 mg/dL (0.7-1.3) Estimated GFR (Cockcroft-Gault) 63.2 Glucose Level 479 mg/dL (70-99) Calcium Level 7.8 mg/dL (8.5-10.1) Test 12/28/16 11:22 Glucose (Fingerstick) 489 mg/dL (70-99) Medication Medications Current Medications Clopidogrel Bisulfate (Plavix) 75 mg [id number] PO ; Start 12/28/16 at 08:00 Sodium Chloride 1,000 ml @ 75 mls/hr [id number] IV Last administered on 12/28/16t 12:21; Start 12/27/16 at 16:45 Comment Review of Relevant I have reviewed the following items yobani (where applicable) has been applied. MERT MAGANA MD December 28, 2016 13:05
--- NOTE | 2016-12-28 13:53 | RAD ---
Indication: Fever. Time of exam 1325 hours. Correlation is made with prior chest from 12/10/2016. The heart is enlarged. The lungs appear clear. No infiltrates are detected. No effusion or pneumothorax is seen. Impression: No acute cardiopulmonary process is detected.
[2016-12-28] MEDS ORDERED: hydrALAZINE 20 MG/ML VIAL. IVP ONE (14:30)
--- NOTE | 2016-12-28 14:57 | RAD ---
Indication: Abnormal CT. Correlation is made with CT study earlier the same day. The liver is enlarged at 19.5 cm. There is increased echogenicity consistent with fatty infiltration. There does appear to be an enlarged lymph node in the midline near the liver measuring 3.5 x 1.4 x 3.7 cm. This may be in the hepatogastric region. The gallbladder is contracted. There are small stones present. No wall thickening is identified. No biliary duct dilatation is seen. Both kidneys again demonstrate hydronephrosis. No calculi are detected. The pancreas is unremarkable. The spleen is borderline in size and not well visualized. Aorta demonstrates atherosclerotic changes but is nonaneurysmal. No ascites is seen. Impression: 1. Hepatomegaly and fatty infiltration. 2. Cholelithiasis and gallbladder contraction. 3. Bilateral hydronephrosis. 4. Enlarged midline abdominal lymph node, perhaps hepatogastric.
[2016-12-28] MEDS ORDERED: PROPOFOL 20 ML IV ONE (15:43)
[2016-12-28] MEDS ORDERED: DEXAMETHASONE SOD PHOS 20 MG/5 ML VIAL. ONE (15:43)
[2016-12-28] MEDS ORDERED: fentaNYL PF VIAL 100 MCG/2 ML VIAL ONE (15:43)
[2016-12-28] MEDS ORDERED: ONDANSETRON PF 4 MG/2 ML VIAL. ONE (15:43)
[2016-12-28] MEDS ORDERED: ePHEDrine PF IN SALINE 50 MG/5 ML DISP.SYRIN IV ONE (15:45)
[2016-12-28] MEDS ORDERED: LIDOCAINE 2% 100 MG/5 ML SYRINGE. ONE (15:45)
[2016-12-28] MEDS ORDERED: IOHEXOL 300 MG/ML 50 ML VIAL. ONE (15:49)
[2016-12-28] MEDS ORDERED: LIDOCAINE 2% JELLY 6ML IN APPLICATOR. ONE ×2 (15:49→15:50)
[2016-12-28] MEDS ORDERED: PHENYLEPHRINE in 0.9% NACL PF 1 MG/10 ML DISP.SYRIN. IV ONE (16:53)
--- NOTE | 2016-12-28 17:23 | PDOC4 ---
Operative Note Operative Note pre-op dx-bilateral hydronephrosis, retention procedure-cystoscopy, bilateral retrograde pyelograms, bilateral ureteral stent placement, catalan catheter change surgeon-izaiah zamora-general Pt. to PACU in stable condition Pt. will f/u in urology in 2 weeks for voiding trial Oncology to workup adenopathy ELLY CHAMBERS MD December 28, 2016 17:23
[2016-12-28] MEDS: TAMSULOSIN 0.4 MG CAP.ER.24H. PO SCH (18:25)
[2016-12-28] MEDS: INSULIN DETEMIR 300 UNITS/3 ML INSULN.PEN. SQ SCH (20:51)
--- NOTE | 2016-12-28 21:25 | OP ---
DATE OF SURGERY: 12/28/2016 OPERATION: Cystoscopy, bilateral retrograde pyelograms, bilateral ureteral stent placement, Turcios catheter change. SURGEON: Elly Butcher M.D. ANESTHESIA: General. PREOPERATIVE DIAGNOSIS: Urinary retention and bilateral hydronephrosis. POSTOPERATIVE DIAGNOSIS: Urinary retention and bilateral hydronephrosis. INDICATIONS: The patient is a very pleasant 56-year-old -[place] male with history of elevated creatinine, found to have bilateral hydronephrosis and urinary retention, discussed with the patient also with abdominal adenopathy. I have discussed with the patient the options, alternatives, benefits, risks and possible complications of cystoscopy with bilateral retrograde pyelograms, possible bilateral ureteral stent placement. He understands this and does wish to proceed with the operation. DESCRIPTION OF PROCEDURE: After obtaining the informed consent, the patient was taken to operating room. After an excellent general anesthetic, the patient was placed in dorsal lithotomy position. Indwelling Turcios catheter was removed. Groin was prepped and draped in sterile fashion. The patient is already on regular antibiotics, which will cover him for the procedure. Panendoscopy and cystoscopy then performed with the 30 and 70-degree lenses on the 21-Malawian cystoscope sheath. Penile urethra was found to be grossly normal. External sphincter appeared intact. Prostatic urethra showed some moderate bilobar enlargement. Bladder was entered and inspected. Both ureteral orifices were identified and found to be grossly patent noted to have moderate amount of catheter reaction in the bladder and some edema and erythema from having been in retention, but no obvious bladder tumors or bladder stones were identified. Bilateral retrograde pyelograms were performed. The patient noted to have markedly tortuous ureters bilaterally with some apparent external compression at several points along the distal, mid, and proximal ureter consistent with the patient's adenopathy and then dilation of the renal pelvis and calices. Following this, floppy tipped angled ZIPwire was passed up the left ureteral orifice up the left ureter to the left kidney and following this, a 6 x 28 double-J stent was then passed up the ZIPwire, placing one curl in the left kidney and another curl in the bladder and the ZIPwire removed. Stent position was checked by fluoroscopy and direct vision, found to be in good position. Following this, the floppy-tipped angled ZIPwire was then passed up the right ureteral orifice up the right ureter to the right kidney and following this, a 6 x 26 double-J stent then passed up the ZIPwire, placing one curl in the right kidney and the other curl in the bladder and the ZIPwire removed. Stent position was checked and found to be in good position by fluoroscopy and direct vision. Following this, the cystoscope was withdrawn from the patient and a new 18-Malawian Turcios catheter placed per urethra and bladder connected to gravity drainage. Clear drainage was noted; therefore, the Turcios balloon was inflated and the Turcios connected to gravity drainage and secured to the patient's right thigh with a StatLock. The patient tolerated the procedure very well, was taken to recovery room in stable condition. Plan will be as to keep the Turcios catheter in place. Placed the patient on Flomax and give him a voiding trial in Urology office in 2 weeks and then depending on what Oncology finds in their workup for the patient's abdominal adenopathy, we will remove the stents in the future at the time of retrograde pyelograms and then possible stent change or stent removal in approximately 1 month to 6 weeks. ELLY BUTCHER MD DR: JUNIOR/maria isabel JOB#: [id number] / [id number]
--- NOTE | 2016-12-29 02:16 | CONS ---
DATE OF CONSULTATION: 12/28/2016 REFERRING PROVIDER: Dr. Butcher. REASON FOR CONSULTATION: Abdominal adenopathy. HISTORY OF PRESENT ILLNESS: The patient is a 56-year-old male who presented to the hospital on 12/25/2016 with altered mental status, thought to be due to hyperglycemia. 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 He has had chronic wounds at these sites. He has been noted to have urinary retention with CT of the abdomen/pelvis revealing bilateral hydronephrosis. A cystoscopy is planned this afternoon. The scan was performed, noncontrast that revealed questionable abdominal adenopathy. He denies any fevers, chills, unintentional weight loss, or abdominal pain. PAST MEDICAL HISTORY: Diabetes, chronic wounds, recent admissions for metabolic encephalopathy and possible seizure activity with negative evaluation so far. PAST SURGICAL HISTORY: Appendectomy, bilateral knee amputations, right hand surgery. FAMILY HISTORY: Unknown to the patient. SOCIAL HISTORY: Denies any tobacco, alcohol or drug use. ALLERGIES: ASPIRIN. CURRENT MEDICATIONS: Plavix, Tylenol, lisinopril, oral iron, Pepcid, Lovenox, aspart, Zosyn, Ultram, Lortab, Levemir. REVIEW OF SYSTEMS: Ten point review of systems completed and unremarkable with the exception of the leg wound. PHYSICAL EXAMINATION: VITAL SIGNS: Temperature 100.4, pulse 87, respiratory rate 18, blood pressure 159/85, 97% O2 on room air. GENERAL: He is alert and oriented, in no distress at this time. HEENT: Extraocular muscles are intact. Sclerae are without icterus. Mucous membranes are moist. CARDIOVASCULAR: Heart is regular in rhythm and rate. LUNGS: Clear to auscultation bilaterally. ABDOMEN: Soft, nontender. EXTREMITIES: Status post bilateral below the knee amputations with no edema. SKIN: Several significant wounds in his bilateral lower extremities. NEUROLOGIC: No focal deficits. LYMPH: No palpable cervical or supraclavicular adenopathy. IMAGING AND LABORATORY DATA: CBC relatively unremarkable with the exception of hemoglobin 10.5, normal WBC, ESR greater than 140. Creatinine initially 1.6, now down to 1.4. CT of the abdomen and pelvis reviewed as above. Renal ultrasound reveals bilateral hydronephrosis. ASSESSMENT AND PLAN: The patient is a 56-year-old male with the following medical problems: 1. Possible abdominal adenopathy. If truly present, I suspect this is could be reactive to his underlying significant leg infections. His ESR is greater than 140. He is now on IV antibiotics. The previous CT was performed noncontrast and could not provide clear views. I will order an abdominal ultrasound to be completed for further evaluation. Given that he is actively having fevers and requiring IV antibiotics, if there is adenopathy, I would recommend treating his current infection/wounds and followup imaging as an outpatient. 2. Chronic leg wounds. On antibiotics and undergoing wound care. Thank you for allowing me to participate in his care. AUBREY ZAMORA DO DR: KAMALJIT/maria isabel JOB#: [id number] / [id number] MAITE
[2016-12-29 03:12] VITALS: BP 147/89
[2016-12-29 06:22] LABS: CALCIUM 7.6 mg/dL (8.5-10.1); CREATININE 1.3 mg/dL (0.7-1.3); GFR 68.8
[2016-12-29] MEDS: PIPERACILLIN/TAZOBACTAM 3.375 GM in IV NORMAL SALINE 50ML 50 ML IV SCH ×3 (06:29→18:00)
[2016-12-29 07:00] VITALS: BP 126/73
--- NOTE | 2016-12-29 08:44 | PDOC ---
Subjective: Subjective: Onc f/u- abd LAD Ureteral stents placed yesterday No new complaints No abd pain Objective: Vital Signs: Vital Signs Date Time Temp Pulse Resp B/P (MAP) Pulse Ox O2 Delivery O2 Flow Rate FiO2 12/29/16 07:00 98.6 95 18 126/73 (90) 97 98.6 12/29/16 03:12 Room Air 12/28/16 17:20 10 Physical Exam: Abdomen: No tenderness Extremities: No edema, Other (chronic wounds on legs with bandages in place) General: Alert, Oriented X3, Cooperative, No acute distress Lungs: Other (no respiratory distress) Psych/Mental Status: Mental status NL, Mood NL Labs/Imaging: Abd U/S- 3.2 cm hepatogastric enlarged node, no other nodes Assessment/Plan A/P: 1. 3.2 cm hepatogastric node. D/w Dr. Chung, very difficult to biopsy. Now that Cr better, recommend CT with contrast to also further eval vascular structures and assess if other enlarged nodes more amenable to biopsy are present. CBC with no significant abnormalities other than mild anemia more likely due to chronic disease. Given the difficult location and lack of symptoms, if no other adenopathy found , will plan to f/u in 2 month with repeat scans. If other nodes amenable to biopsy present, would proceed with biopsy. 2. Chronic leg wounds. On antibiotics and undergoing wound care. ? if could contribute to reactive adenopathy, though hepatogastric would be odd location. ESR > 140. 3. TE- Now resolved. Will proceed with IV contrast. 4. Bilateral hydronephrosis s/p stent placement 12/28. AUBREY ZAMORA DO December 29, 2016 08:44
[2016-12-29] MEDS ORDERED: IOHEXOL 300 MG/ML 75 ML VIAL IV ONE (09:30)
[2016-12-29] MEDS ORDERED: IOHEXOL 240 MG/ML 50ML VIAL. PO ONE (09:30)
[2016-12-29] MEDS ORDERED: CONTRAST GIVEN MC PRN (09:30)
[2016-12-29] MEDS: IV NORMAL SALINE 1000ML BAG 1,000 ML IV SCH (09:31)
[2016-12-29] MEDS: FERROUS SULFATE 325 MG TABLET. PO SCH (09:36)
[2016-12-29] MEDS: TAMSULOSIN 0.4 MG CAP.ER.24H. PO SCH (09:36)
[2016-12-29] MEDS: LISINOPRIL 5 MG TABLET. PO SCH (09:36)
[2016-12-29] MEDS: FAMOTIDINE 20 MG TABLET. PO SCH (09:36)
[2016-12-29] MEDS: CLOPIDOGREL BISULFATE 75 MG TABLET PO SCH (09:36)
[2016-12-29] MEDS: INSULIN ASPART 300 UNITS/3 ML INSULN.PEN SQ SCH ×6 (09:45→18:15)
--- NOTE | 2016-12-29 09:45 | PDOC ---
PROGRESS NOTES Chief Complaint Chief Complaint cc: AMS A/P 1. Hydroureter: good out pt with Turcios, s/p Cystoscopy, bilateral retrograde pyelograms, bilateral ureteral stent placement, Turcios catheter change. 2. Encephalopathy, : unclear etiology, possible due to hyperglycemia. resolved. appears to be at his baseline 3. Diabetes mellitus, uncontrolled, currently controlled with sliding scale insulin: non compliance with medications at home., [id number] > 10. 4. Noncompliance with medication. 5. Hypertension stable. 6. Acute kidney injury, vasomotor, improving. Nephrology following, d/w urology , keep Turcios, 2 week follow up. 7. 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 8. Peripheral vascular disease, which is chronic. 9. hx of subacute small right temporal lobe and left frontal and parietal lobe infracts, embolic etiology: On Plavix. 10. Hyperlipidemia. 11: Lymphadenopathy: likely reactive, oncology following. 11. Disposition: SNU placement. History of Present Illness History of Present Illness no fever mental status better he knows that he is in providence no confusion. Vitals Vitals Vital Signs Date Time Temp Pulse Resp B/P (MAP) Pulse Ox O2 Delivery O2 Flow Rate FiO2 12/29/16 07:00 98.6 95 18 126/73 (90) 97 98.6 12/29/16 03:12 Room Air 12/28/16 17:20 10 Physical Exam General: Alert, Oriented X3, Cooperative, No acute distress Heart: Regular rate, Normal S1 Lungs: Clear Abdomen: No tenderness Extremities: No edema, Other (chronic wounds on legs with bandages in place) Skin: No breakdown Labs LABS Laboratory Tests Test 12/28/16 11:22 12/28/16 15:30 12/28/16 17:25 12/28/16 18:10 Glucose (Fingerstick) 489 mg/dL (70-99) 144 mg/dL (70-99) 93 mg/dL (70-99) 100 mg/dL (70-99) Test 12/28/16 20:44 12/29/16 05:20 12/29/16 09:13 Glucose (Fingerstick) 220 mg/dL (70-99) 373 mg/dL (70-99) Sodium Level 138 mmol/L (136-145) Potassium Level 3.0 mmol/L (3.5-5.1) Chloride Level 105 mmol/L (98-107) Carbon Dioxide Level 23 mmol/L (21-32) Anion Gap 10 (6-14) Blood Urea Nitrogen 17 mg/dL (8-26) Creatinine 1.3 mg/dL (0.7-1.3) Estimated GFR (Cockcroft-Gault) 68.8 Glucose Level 341 mg/dL (70-99) Calcium Level 7.6 mg/dL (8.5-10.1) Assessment and Plan Assessmemt and Plan Problems Medical Problems: (1) Altered mental status Status: Acute (2) Hyperglycemia Status: Acute Problems: Comment Review of Relevant I have reviewed the following items yobani (where applicable) has been applied. Labs Laboratory Tests Test 12/27/16 10:01 12/27/16 16:29 12/27/16 20:45 12/28/16 07:13 Glucose (Fingerstick) 155 mg/dL (70-99) 159 mg/dL (70-99) 257 mg/dL (70-99) 422 mg/dL (70-99) Test 12/28/16 09:00 12/28/16 11:22 12/28/16 15:30 12/28/16 17:25 White Blood Count 6.4 x10^3/uL (4.0-11.0) Red Blood Count 3.44 x10^6/uL (4.30-5.70) Hemoglobin 10.5 g/dL (13.0-17.5) Hematocrit 30.1 % (39.0-53.0) Mean Corpuscular Volume 88 fL (79-100) Mean Corpuscular Hemoglobin 31 pg (25-35) Mean Corpuscular Hemoglobin Concent 35 g/dL (31-37) Red Cell Distribution Width 16.5 % (11.5-14.5) Platelet Count 147 x10^3/uL (140-400) Neutrophils (%) (Auto) 60 % (31-73) Lymphocytes (%) (Auto) 32 % (24-48) Monocytes (%) (Auto) 7 % (0-9) Eosinophils (%) (Auto) 1 % (0-3) Basophils (%) (Auto) 0 % (0-3) Neutrophils # (Auto) 3.8 x10^3uL (1.8-7.7) Lymphocytes # (Auto) 2.1 x10^3/uL (1.0-4.8) Monocytes # (Auto) 0.4 x10^3/uL (0.0-1.1) Eosinophils # (Auto) 0.1 x10^3/uL (0.0-0.7) Basophils # (Auto) 0.0 x10^3/uL (0.0-0.2) Sodium Level 140 mmol/L (136-145) Potassium Level 3.7 mmol/L (3.5-5.1) Chloride Level 107 mmol/L (98-107) Carbon Dioxide Level 25 mmol/L (21-32) Anion Gap 8 (6-14) Blood Urea Nitrogen 21 mg/dL (8-26) Creatinine 1.4 mg/dL (0.7-1.3) Estimated GFR (Cockcroft-Gault) 63.2 Glucose Level 479 mg/dL (70-99) Calcium Level 7.8 mg/dL (8.5-10.1) Glucose (Fingerstick) 489 mg/dL (70-99) 144 mg/dL (70-99) 93 mg/dL (70-99) Test 12/28/16 18:10 12/28/16 20:44 12/29/16 05:20 12/29/16 09:13 Glucose (Fingerstick) 100 mg/dL (70-99) 220 mg/dL (70-99) 373 mg/dL (70-99) Sodium Level 138 mmol/L (136-145) Potassium Level 3.0 mmol/L (3.5-5.1) Chloride Level 105 mmol/L (98-107) Carbon Dioxide Level 23 mmol/L (21-32) Anion Gap 10 (6-14) Blood Urea Nitrogen 17 mg/dL (8-26) Creatinine 1.3 mg/dL (0.7-1.3) Estimated GFR (Cockcroft-Gault) 68.8 Glucose Level 341 mg/dL (70-99) Calcium Level 7.6 mg/dL (8.5-10.1) Laboratory Tests Test 12/28/16 11:22 12/28/16 15:30 12/28/16 17:25 12/28/16 18:10 Glucose (Fingerstick) 489 mg/dL (70-99) 144 mg/dL (70-99) 93 mg/dL (70-99) 100 mg/dL (70-99) Test 12/28/16 20:44 12/29/16 05:20 12/29/16 09:13 Glucose (Fingerstick) 220 mg/dL (70-99) 373 mg/dL (70-99) Sodium Level 138 mmol/L (136-145) Potassium Level 3.0 mmol/L (3.5-5.1) Chloride Level 105 mmol/L (98-107) Carbon Dioxide Level 23 mmol/L (21-32) Anion Gap 10 (6-14) Blood Urea Nitrogen 17 mg/dL (8-26) Creatinine 1.3 mg/dL (0.7-1.3) Estimated GFR (Cockcroft-Gault) 68.8 Glucose Level 341 mg/dL (70-99) Calcium Level 7.6 mg/dL (8.5-10.1) Medications Current Medications Ondansetron HCl (Zofran) 4 mg PRN Q8HRS PRN IV NAUSEA/VOMITING; Start 12/25/16 at 18:15; Stop 12/26/16 at 11:15; Status DC Sodium Chloride 1,000 ml @ 75 mls/hr [id number] IV Last administered on 12/25/16 18:27; Start 12/25/16 at 18:30; Stop 12/26/16 at 18:29; Status DC Insulin Detemir (Levemir) 20 units QHS SQ Last administered on 12/28/16 20:51; Start 12/25/16 at 21:00 Insulin Aspart (Novolog) 0-7 UNITS TIDWMEALS SQ Last administered on 12/28/16 12:07; Start 12/26/16 at 08:00 Dextrose (Dextrose 50%-Water Syringe) 12.5 gm PRN Q15MIN PRN IV SEE COMMENTS; Start 12/25/16 at 18:15 Potassium Chloride (Klor-Con) 40 meq 1X ONCE PO Last administered on 12/25/16 20:01; Start 12/25/16 at 20:00; Stop 12/25/16 at 20:01; Status DC Insulin Aspart (Novolog) 17 units TIDAC SQ ; Start 12/26/16 at 07:30; Stop at 07:30; Status DC Enoxaparin Sodium (Lovenox 40mg Syringe) 40 mg DAILY SQ Last administered on 08:30; Start 12/26/16 at 09:00 Famotidine (Pepcid) 20 mg BID PO Last administered on 12/28/16 20:46; Start 12/26/16 at 09:00 Ferrous Sulfate (Feosol) 325 mg DAILY PO Last administered on 12/27/16 08:28; Start 12/26/16 at 09:00 Acetaminophen/ Hydrocodone Bitart (Lortab 5/325) 1 tab PRN Q6HRS PRN PO SEVERE PAIN; Start 12/25/16 at 21:15 Lisinopril (Prinivil) 5 mg DAILY PO Last administered on 12/27/16 08:28; Start 12/26/16 at 09:00 Piperacillin Sod/ Tazobactam Sod (Zosyn) 3.375 gm Q6HRS IV ; Start 12/26/16 at 00 :00; Status UNV Tramadol HCl (Ultram) 50 mg PRN Q6HRS PRN PO MODERATE PAIN; Start 12/25/16 at 21 :15 Piperacillin Sod/ Tazobactam Sod 3.375 gm/Sodium Chloride 50 ml @ 100 mls/hr Q6HRS IV Last administered on 12/29/16 06:29; Start 12/26/16 at 00:00 Insulin Aspart (Novolog) 17 units 1X ONCE SQ Last administered on 12/25/16 21: 41; Start 12/25/16 at 21:40; Stop 12/25/16 at 21:51; Status DC Potassium Chloride (Klor-Con) 20 meq 1X ONCE PO Last administered on 12/25/16 22:30; Start 12/25/16 at 22:00; Stop 12/25/16 at 22:01; Status DC Insulin Aspart (Novolog) 12 units TIDAC SQ Last administered on 12/28/16 18:28 ; Start 12/26/16 at 07:30 Insulin Aspart (Novolog) 20 units 1X ONCE SQ Last administered on 12/25/16 23: 36; Start 12/25/16 at 23:30; Stop 12/25/16 at 23:31; Status DC Insulin Detemir (Levemir) 12 units 1X ONCE SQ Last administered on 12/25/16 23 :36; Start 12/25/16 at 23:30; Stop 12/25/16 at 23:31; Status DC Ondansetron HCl (Zofran) 4 mg PRN Q6HRS PRN IV NAUSEA/VOMITING; Start 12/26/16 at 11:14; Stop 12/27/16 at 11:13; Status DC Acetaminophen (Tylenol) 650 mg PRN Q6HRS PRN PO MILD PAIN; Start 12/26/16 at 11: 15 Insulin Aspart (Novolog) 12 units ONCE ONCE SQ ; Start 12/26/16 at 21:00; Stop 12/26/16 at 21:02; Status DC Insulin Aspart (Novolog) 8 units 1X ONCE SQ Last administered on 12/26/16 21: 34; Start 12/26/16 at 21:15; Stop 12/26/16 at 21:16; Status DC Sodium Chloride 1,000 ml @ 75 mls/hr [id number] IV Last administered on 12/28/16 20:45; Start 12/27/16 at 16:45 Clopidogrel Bisulfate (Plavix) 75 mg DAILYWBKFT PO ; Start 12/28/16 at 08:00 Hydralazine HCl (Apresoline) 10 mg 1X ONCE IVP Last administered on 12/28/16 14:42; Start 12/28/16 at 14:30; Stop 12/28/16 at 14:31; Status DC Propofol 20 ml @ As Directed STK-MED ONCE IV ; Start 12/28/16 at 15:43; Stop 12/28 at 15:44; Status DC Ondansetron HCl (Zofran) 4 mg STK-MED ONCE .ROUTE ; Start 12/28/16 at 15:43; Stop 12/28/16 at 15:44; Status DC Dexamethasone Sodium Phosphate (Decadron) 20 mg STK-MED ONCE .ROUTE ; Start 12/28 at 15:43; Stop 12/28/16 at 15:44; Status DC Fentanyl Citrate (Fentanyl 2ml Vial) 100 mcg STK-MED ONCE .ROUTE ; Start at 15:43; Stop 12/28/16 at 15:44; Status DC Lidocaine HCl (Lidocaine HCl 2% Abboject) 100 mg STK-MED ONCE .ROUTE ; Start 12/28/16 at 15:45; Stop 12/28/16 at 15:46; Status DC Ephedrine Sulfate 50 mg STK-MED ONCE IV ; Start 12/28/16 at 15:45; Stop 12/28/16 at 15:46; Status DC Lidocaine HCl (Glydo (Lidocaine) Jelly) 6 vincent STK-MED ONCE .ROUTE ; Start at 15:49; Stop 12/28/16 at 15:50; Status DC Iohexol (Omnipaque 300 Mg/ml) 50 ml STK-MED ONCE .ROUTE Last administered on 16:49; Start 12/28/16 at 15:49; Stop 12/28/16 at 15:50; Status DC Lidocaine HCl (Glydo (Lidocaine) Jelly) 6 vincent STK-MED ONCE .ROUTE ; Start at 15:50; Stop 12/28/16 at 15:51; Status DC Phenylephrine HCl 1 mg STK-MED ONCE IV ; Start 12/28/16 at 16:53; Stop 12/28/16 at 16:54; Status DC Tamsulosin HCl (Flomax) 0.4 mg DAILY PO Last administered on 12/28/16 18:25; Start 12/28/16 at 16:00 Iohexol (Omnipaque 240 Mg/ml) 30 ml 1X ONCE PO ; Start 12/29/16 at 09:30; Stop 12/29/16 at 09:31; Status DC Iohexol (Omnipaque 300 Mg/ml) 75 ml 1X ONCE IV ; Start 12/29/16 at 09:30; Stop 12/29/16 at 09:31; Status DC Info (Do NOT chart on this entry -- for MONITORING) 1 each PRN DAILY PRN MC SEE COMMENTS; Start 12/29/16 at 09:30; Stop 12/31/16 at 09:29 Active Scripts Active Reported Piperacil-Tazobact 3.375 Gm Vl (Piperacillin Sodium/Tazobactam) 3.375 Gm Vial 3.375 Gm IV Q6HRS Ferrous Sulfate 325 Mg Tablet 300 Mg PO DAILY Tramadol Hcl 50 Mg Tablet 1 Tab PO PRN Q6HRS PRN Silver Nitrate Applicator 1 Each Stick..ea. 1 Each TP Famotidine 20 Mg Tablet 20 Mg PO BID Lisinopril 5 Mg Tablet 1 Tab PO DAILY Hydrocodone-Apap 5-325 (Hydrocodone Bit/Acetaminophen) 1 Each Tablet 1 Tab PO PRN Q6HRS PRN Lovenox (Enoxaparin Sodium) 40 Mg/0.4 Ml Disp.syrin 0.4 Ml SQ DAILY Humulin R (Insulin Regular, Human) 100 Unit/1 Ml Vial 7 Unit IJ TID Lantus Solostar (Insulin Glargine,Hum.rec.anlog) 100 Unit/1 Ml Insuln.pen 30 Unit SQ QHS Vitals/I & O Vital Sign - Last 24 Hours 12/28/16 12/28/16 12/28/16 12/28/16 10:30 14:39 14:42 15:14 Temp 98.8 97.9 99.0 98.8 97.9 99.0 Pulse 87 97 97 91 Resp 18 18 12 B/P (MAP) 169/85 (113) 160/101 (120) 160/101 146/80 Pulse Ox 97 100 98 O2 Delivery Room Air Room Air Room Air 12/28/16 12/28/16 12/28/16 12/28/16 17:20 17:20 17:35 17:48 Temp 97.1 97.1 Pulse 84 92 Resp 16 18 B/P (MAP) 89/55 135/72 Pulse Ox 99 99 O2 Delivery Simple Mask Mask Room Air Room Air O2 Flow Rate 10 10 12/28/16 12/28/16 12/28/16 12/28/16 17:50 18:15 18:30 18:45 Temp 96.9 96.9 Pulse 84 87 93 91 Resp 18 18 B/P (MAP) 126/79 142/82 (102) 137/93 (108) 154/93 (113) Pulse Ox 98 98 O2 Delivery Room Air Room Air 12/28/16 12/28/16 12/28/16 12/28/16 19:00 20:00 21:07 23:12 Temp 99.1 99.1 98.0 99.1 99.1 98.0 Pulse 96 98 99 Resp 20 22 18 B/P (MAP) 129/70 (89) 119/80 (93) 152/96 (114) Pulse Ox 96 96 99 O2 Delivery Room Air Room Air Room Air Room Air 12/29/16 12/29/16 03:12 07:00 Temp 97.6 98.6 97.6 98.6 Pulse 111 95 Resp 18 18 B/P (MAP) 147/89 (108) 126/73 (90) Pulse Ox 99 97 O2 Delivery Room Air Intake and Output 12/28/16 12/28/16 12/29/16 15:00 23:00 07:00 Intake Total 720 ml Output Total 1100 ml 625 ml 1450 ml Balance -1100 ml -625 ml -730 ml BEVERLY SIMONS MD December 29, 2016 09:45
[2016-12-29] MEDS: ENOXAPARIN 40 MG/0.4 ML SYRINGE. SQ SCH (09:46)
--- NOTE | 2016-12-29 10:07 | PDOC ---
PROGRESS NOTES Subjective Subjective He c/o being tired and did not go to sleep until 4 AM. Objective Objective Vital Signs Date Time Temp Pulse Resp B/P (MAP) Pulse Ox O2 Delivery O2 Flow Rate FiO2 12/29/16 09:36 95 126/73 12/29/16 07:00 98.6 18 97 98.6 12/29/16 03:12 Room Air 12/28/16 17:20 10 Intake and Output 12/29/16 07:00 Intake Total 720 ml Output Total 3175 ml Balance -2455 ml Intake Oral 720 ml Output Urine Total 3175 ml Bladder Scan Volume Amount # Bowel Movements 4 Physical Exam Physical Exam He is comfortable,supine in bed and dressing in place to right BK stump and left knee skin irritation. Assessment Assessment Problems Medical Problems: (1) Altered mental status Status: Acute (2) Hyperglycemia Status: Acute Plan Plan of Care He is not a candidate for new prostheses until skin lesions heal. Comment Review of Relevant I have reviewed the following items yobani (where applicable) has been applied. Labs Laboratory Tests Test 12/27/16 16:29 12/27/16 20:45 12/28/16 07:13 12/28/16 09:00 Glucose (Fingerstick) 159 mg/dL (70-99) 257 mg/dL (70-99) 422 mg/dL (70-99) White Blood Count 6.4 x10^3/uL (4.0-11.0) Red Blood Count 3.44 x10^6/uL (4.30-5.70) Hemoglobin 10.5 g/dL (13.0-17.5) Hematocrit 30.1 % (39.0-53.0) Mean Corpuscular Volume 88 fL (79-100) Mean Corpuscular Hemoglobin 31 pg (25-35) Mean Corpuscular Hemoglobin Concent 35 g/dL (31-37) Red Cell Distribution Width 16.5 % (11.5-14.5) Platelet Count 147 x10^3/uL (140-400) Neutrophils (%) (Auto) 60 % (31-73) Lymphocytes (%) (Auto) 32 % (24-48) Monocytes (%) (Auto) 7 % (0-9) Eosinophils (%) (Auto) 1 % (0-3) Basophils (%) (Auto) 0 % (0-3) Neutrophils # (Auto) 3.8 x10^3uL (1.8-7.7) Lymphocytes # (Auto) 2.1 x10^3/uL (1.0-4.8) Monocytes # (Auto) 0.4 x10^3/uL (0.0-1.1) Eosinophils # (Auto) 0.1 x10^3/uL (0.0-0.7) Basophils # (Auto) 0.0 x10^3/uL (0.0-0.2) Sodium Level 140 mmol/L (136-145) Potassium Level 3.7 mmol/L (3.5-5.1) Chloride Level 107 mmol/L (98-107) Carbon Dioxide Level 25 mmol/L (21-32) Anion Gap 8 (6-14) Blood Urea Nitrogen 21 mg/dL (8-26) Creatinine 1.4 mg/dL (0.7-1.3) Estimated GFR (Cockcroft-Gault) 63.2 Glucose Level 479 mg/dL (70-99) Calcium Level 7.8 mg/dL (8.5-10.1) Test 12/28/16 11:22 12/28/16 15:30 12/28/16 17:25 12/28/16 18:10 Glucose (Fingerstick) 489 mg/dL (70-99) 144 mg/dL (70-99) 93 mg/dL (70-99) 100 mg/dL (70-99) Test 12/28/16 20:44 12/29/16 05:20 12/29/16 09:13 Glucose (Fingerstick) 220 mg/dL (70-99) 373 mg/dL (70-99) Sodium Level 138 mmol/L (136-145) Potassium Level 3.0 mmol/L (3.5-5.1) Chloride Level 105 mmol/L (98-107) Carbon Dioxide Level 23 mmol/L (21-32) Anion Gap 10 (6-14) Blood Urea Nitrogen 17 mg/dL (8-26) Creatinine 1.3 mg/dL (0.7-1.3) Estimated GFR (Cockcroft-Gault) 68.8 Glucose Level 341 mg/dL (70-99) Calcium Level 7.6 mg/dL (8.5-10.1) Laboratory Tests Test 12/28/16 11:22 12/28/16 15:30 12/28/16 17:25 12/28/16 18:10 Glucose (Fingerstick) 489 mg/dL (70-99) 144 mg/dL (70-99) 93 mg/dL (70-99) 100 mg/dL (70-99) Test 12/28/16 20:44 12/29/16 05:20 12/29/16 09:13 Glucose (Fingerstick) 220 mg/dL (70-99) 373 mg/dL (70-99) Sodium Level 138 mmol/L (136-145) Potassium Level 3.0 mmol/L (3.5-5.1) Chloride Level 105 mmol/L (98-107) Carbon Dioxide Level 23 mmol/L (21-32) Anion Gap 10 (6-14) Blood Urea Nitrogen 17 mg/dL (8-26) Creatinine 1.3 mg/dL (0.7-1.3) Estimated GFR (Cockcroft-Gault) 68.8 Glucose Level 341 mg/dL (70-99) Calcium Level 7.6 mg/dL (8.5-10.1) Medications Current Medications Ondansetron HCl (Zofran) 4 mg PRN Q8HRS PRN IV NAUSEA/VOMITING; Start 12/25/16 at 18:15; Stop 12/26/16 at 11:15; Status DC Sodium Chloride 1,000 ml @ 75 mls/hr [id number] IV Last administered on 12/25/16 18:27; Start 12/25/16 at 18:30; Stop 12/26/16 at 18:29; Status DC Insulin Detemir (Levemir) 20 units QHS SQ Last administered on 12/28/16 20:51; Start 12/25/16 at 21:00 Insulin Aspart (Novolog) 0-7 UNITS TIDWMEALS SQ Last administered on 12/29/16 09:45; Start 12/26/16 at 08:00 Dextrose (Dextrose 50%-Water Syringe) 12.5 gm PRN Q15MIN PRN IV SEE COMMENTS; Start 12/25/16 at 18:15 Potassium Chloride (Klor-Con) 40 meq 1X ONCE PO Last administered on 12/25/16 20:01; Start 12/25/16 at 20:00; Stop 12/25/16 at 20:01; Status DC Insulin Aspart (Novolog) 17 units TIDAC SQ ; Start 12/26/16 at 07:30; Stop at 07:30; Status DC Enoxaparin Sodium (Lovenox 40mg Syringe) 40 mg DAILY SQ Last administered on 08:30; Start 12/26/16 at 09:00 Famotidine (Pepcid) 20 mg BID PO Last administered on 12/29/16 09:36; Start at 09:00 Ferrous Sulfate (Feosol) 325 mg DAILY PO Last administered on 12/29/16 09:36; Start 12/26/16 at 09:00 Acetaminophen/ Hydrocodone Bitart (Lortab 5/325) 1 tab PRN Q6HRS PRN PO SEVERE PAIN; Start 12/25/16 at 21:15 Lisinopril (Prinivil) 5 mg DAILY PO Last administered on 12/29/16 09:36; Start 12/26/16 at 09:00 Piperacillin Sod/ Tazobactam Sod (Zosyn) 3.375 gm Q6HRS IV ; Start 12/26/16 at 00 :00; Status UNV Tramadol HCl (Ultram) 50 mg PRN Q6HRS PRN PO MODERATE PAIN; Start 12/25/16 at 21 :15 Piperacillin Sod/ Tazobactam Sod 3.375 gm/Sodium Chloride 50 ml @ 100 mls/hr Q6HRS IV Last administered on 12/29/16 06:29; Start 12/26/16 at 00:00 Insulin Aspart (Novolog) 17 units 1X ONCE SQ Last administered on 12/25/16 21: 41; Start 12/25/16 at 21:40; Stop 12/25/16 at 21:51; Status DC Potassium Chloride (Klor-Con) 20 meq 1X ONCE PO Last administered on 12/25/16 22:30; Start 12/25/16 at 22:00; Stop 12/25/16 at 22:01; Status DC Insulin Aspart (Novolog) 12 units TIDAC SQ Last administered on 12/29/16 09:46 ; Start 12/26/16 at 07:30 Insulin Aspart (Novolog) 20 units 1X ONCE SQ Last administered on 12/25/16 23: 36; Start 12/25/16 at 23:30; Stop 12/25/16 at 23:31; Status DC Insulin Detemir (Levemir) 12 units 1X ONCE SQ Last administered on 12/25/16 23 :36; Start 12/25/16 at 23:30; Stop 12/25/16 at 23:31; Status DC Ondansetron HCl (Zofran) 4 mg PRN Q6HRS PRN IV NAUSEA/VOMITING; Start 12/26/16 at 11:14; Stop 12/27/16 at 11:13; Status DC Acetaminophen (Tylenol) 650 mg PRN Q6HRS PRN PO MILD PAIN; Start 12/26/16 at 11: 15 Insulin Aspart (Novolog) 12 units ONCE ONCE SQ ; Start 12/26/16 at 21:00; Stop 12/26/16 at 21:02; Status DC Insulin Aspart (Novolog) 8 units 1X ONCE SQ Last administered on 12/26/16 21: 34; Start 12/26/16 at 21:15; Stop 12/26/16 at 21:16; Status DC Sodium Chloride 1,000 ml @ 75 mls/hr [id number] IV Last administered on 09:31; Start 12/27/16 at 16:45 Clopidogrel Bisulfate (Plavix) 75 mg DAILYWBKFT PO Last administered on 09:36; Start 12/28/16 at 08:00 Hydralazine HCl (Apresoline) 10 mg 1X ONCE IVP Last administered on 12/28/16 14:42; Start 12/28/16 at 14:30; Stop 12/28/16 at 14:31; Status DC Propofol 20 ml @ As Directed STK-MED ONCE IV ; Start 12/28/16 at 15:43; Stop 12/28 at 15:44; Status DC Ondansetron HCl (Zofran) 4 mg STK-MED ONCE .ROUTE ; Start 12/28/16 at 15:43; Stop 12/28/16 at 15:44; Status DC Dexamethasone Sodium Phosphate (Decadron) 20 mg STK-MED ONCE .ROUTE ; Start 12/28 at 15:43; Stop 12/28/16 at 15:44; Status DC Fentanyl Citrate (Fentanyl 2ml Vial) 100 mcg STK-MED ONCE .ROUTE ; Start at 15:43; Stop 12/28/16 at 15:44; Status DC Lidocaine HCl (Lidocaine HCl 2% Abboject) 100 mg STK-MED ONCE .ROUTE ; Start 12/28/16 at 15:45; Stop 12/28/16 at 15:46; Status DC Ephedrine Sulfate 50 mg STK-MED ONCE IV ; Start 12/28/16 at 15:45; Stop 12/28/16 at 15:46; Status DC Lidocaine HCl (Glydo (Lidocaine) Jelly) 6 vincent STK-MED ONCE .ROUTE ; Start at 15:49; Stop 12/28/16 at 15:50; Status DC Iohexol (Omnipaque 300 Mg/ml) 50 ml STK-MED ONCE .ROUTE Last administered on 16:49; Start 12/28/16 at 15:49; Stop 12/28/16 at 15:50; Status DC Lidocaine HCl (Glydo (Lidocaine) Jelly) 6 vincent STK-MED ONCE .ROUTE ; Start at 15:50; Stop 12/28/16 at 15:51; Status DC Phenylephrine HCl 1 mg STK-MED ONCE IV ; Start 12/28/16 at 16:53; Stop 12/28/16 at 16:54; Status DC Tamsulosin HCl (Flomax) 0.4 mg DAILY PO Last administered on 12/29/16t 09:36; Start 12/28/16 at 16:00 Iohexol (Omnipaque 240 Mg/ml) 30 ml 1X ONCE PO ; Start 12/29/16 at 09:30; Stop 12/29/16 at 09:31; Status DC Iohexol (Omnipaque 300 Mg/ml) 75 ml 1X ONCE IV ; Start 12/29/16 at 09:30; Stop 12/29/16 at 09:31; Status DC Info (Do NOT chart on this entry -- for MONITORING) 1 each PRN DAILY PRN MC SEE COMMENTS; Start 12/29/16 at 09:30; Stop 12/31/16 at 09:29 Potassium Chloride (Klor-Con) 40 meq 1X ONCE PO ; Start 12/29/16 at 10:30; Stop 12/29/16 at 10:31 Active Scripts Active Reported Piperacil-Tazobact 3.375 Gm Vl (Piperacillin Sodium/Tazobactam) 3.375 Gm Vial 3.375 Gm IV Q6HRS Ferrous Sulfate 325 Mg Tablet 300 Mg PO DAILY Tramadol Hcl 50 Mg Tablet 1 Tab PO PRN Q6HRS PRN Silver Nitrate Applicator 1 Each Stick..ea. 1 Each TP Famotidine 20 Mg Tablet 20 Mg PO BID Lisinopril 5 Mg Tablet 1 Tab PO DAILY Hydrocodone-Apap 5-325 (Hydrocodone Bit/Acetaminophen) 1 Each Tablet 1 Tab PO PRN Q6HRS PRN Lovenox (Enoxaparin Sodium) 40 Mg/0.4 Ml Disp.syrin 0.4 Ml SQ DAILY Humulin R (Insulin Regular, Human) 100 Unit/1 Ml Vial 7 Unit IJ TID Lantus Solostar (Insulin Glargine,Hum.rec.anlog) 100 Unit/1 Ml Insuln.pen 30 Unit SQ QHS Vitals/I & O Vital Sign - Last 24 Hours 12/28/16 12/28/16 12/28/16 12/28/16 10:30 14:39 14:42 15:14 Temp 98.8 97.9 99.0 98.8 97.9 99.0 Pulse 87 97 97 91 Resp 18 18 12 B/P (MAP) 169/85 (113) 160/101 (120) 160/101 146/80 Pulse Ox 97 100 98 O2 Delivery Room Air Room Air Room Air 12/28/16 12/28/16 12/28/16 12/28/16 17:20 17:20 17:35 17:48 Temp 97.1 97.1 Pulse 84 92 Resp 16 18 B/P (MAP) 89/55 135/72 Pulse Ox 99 99 O2 Delivery Simple Mask Mask Room Air Room Air O2 Flow Rate 10 10 12/28/16 12/28/16 12/28/16 12/28/16 17:50 18:15 18:30 18:45 Temp 96.9 96.9 Pulse 84 87 93 91 Resp 18 18 B/P (MAP) 126/79 142/82 (102) 137/93 (108) 154/93 (113) Pulse Ox 98 98 O2 Delivery Room Air Room Air 12/28/16 12/28/16 12/28/16 12/28/16 19:00 20:00 21:07 23:12 Temp 99.1 99.1 98.0 99.1 99.1 98.0 Pulse 96 98 99 Resp 20 22 18 B/P (MAP) 129/70 (89) 119/80 (93) 152/96 (114) Pulse Ox 96 96 99 O2 Delivery Room Air Room Air Room Air Room Air 12/29/16 12/29/16 12/29/16 03:12 07:00 09:36 Temp 97.6 98.6 97.6 98.6 Pulse 111 95 95 Resp 18 18 B/P (MAP) 147/89 (108) 126/73 (90) 126/73 Pulse Ox 99 97 O2 Delivery Room Air Intake and Output 12/28/16 12/28/16 12/29/16 15:00 23:00 07:00 Intake Total 720 ml Output Total 1100 ml 625 ml 1450 ml Balance -1100 ml -625 ml -730 ml MARIAN CASTANEDA MD December 29, 2016 10:06
[2016-12-29] MEDS ORDERED: POTASSIUM CHLORIDE 20 MEQ TABLET.ER. PO ONE (10:30)
--- NOTE | 2016-12-29 10:32 | PDOC ---
PROGRESS NOTES Subjective Subjective Pt. feeling ok Objective Objective Vital Signs Date Time Temp Pulse Resp B/P (MAP) Pulse Ox O2 Delivery O2 Flow Rate FiO2 12/29/16 09:36 95 126/73 12/29/16 07:00 98.6 18 97 98.6 12/29/16 03:12 Room Air 12/28/16 17:20 10 Intake and Output 12/29/16 07:00 Intake Total 720 ml Output Total 3175 ml Balance -2455 ml Intake Oral 720 ml Output Urine Total 3175 ml Bladder Scan Volume Amount # Bowel Movements 4 Physical Exam Physical Exam catalan and stents in place good uo urine meli Plan Plan of Care Pt. being worked up for adenopathy. Keep catalan and stents in place keep on flomax f/u urology in 2 weeks for voiding trial. I discussed all this with pt. today and his yesterday. I will be out of town from now until 01/03/17 Problems Medical Problems: (1) Altered mental status Status: Acute (2) Hyperglycemia Status: Acute Comment Review of Relevant I have reviewed the following items yobani (where applicable) has been applied. Labs Laboratory Tests Test 12/27/16 16:29 12/27/16 20:45 12/28/16 07:13 12/28/16 09:00 Glucose (Fingerstick) 159 mg/dL (70-99) 257 mg/dL (70-99) 422 mg/dL (70-99) White Blood Count 6.4 x10^3/uL (4.0-11.0) Red Blood Count 3.44 x10^6/uL (4.30-5.70) Hemoglobin 10.5 g/dL (13.0-17.5) Hematocrit 30.1 % (39.0-53.0) Mean Corpuscular Volume 88 fL (79-100) Mean Corpuscular Hemoglobin 31 pg (25-35) Mean Corpuscular Hemoglobin Concent 35 g/dL (31-37) Red Cell Distribution Width 16.5 % (11.5-14.5) Platelet Count 147 x10^3/uL (140-400) Neutrophils (%) (Auto) 60 % (31-73) Lymphocytes (%) (Auto) 32 % (24-48) Monocytes (%) (Auto) 7 % (0-9) Eosinophils (%) (Auto) 1 % (0-3) Basophils (%) (Auto) 0 % (0-3) Neutrophils # (Auto) 3.8 x10^3uL (1.8-7.7) Lymphocytes # (Auto) 2.1 x10^3/uL (1.0-4.8) Monocytes # (Auto) 0.4 x10^3/uL (0.0-1.1) Eosinophils # (Auto) 0.1 x10^3/uL (0.0-0.7) Basophils # (Auto) 0.0 x10^3/uL (0.0-0.2) Sodium Level 140 mmol/L (136-145) Potassium Level 3.7 mmol/L (3.5-5.1) Chloride Level 107 mmol/L (98-107) Carbon Dioxide Level 25 mmol/L (21-32) Anion Gap 8 (6-14) Blood Urea Nitrogen 21 mg/dL (8-26) Creatinine 1.4 mg/dL (0.7-1.3) Estimated GFR (Cockcroft-Gault) 63.2 Glucose Level 479 mg/dL (70-99) Calcium Level 7.8 mg/dL (8.5-10.1) Test 12/28/16 11:22 12/28/16 15:30 12/28/16 17:25 12/28/16 18:10 Glucose (Fingerstick) 489 mg/dL (70-99) 144 mg/dL (70-99) 93 mg/dL (70-99) 100 mg/dL (70-99) Test 12/28/16 20:44 12/29/16 05:20 12/29/16 09:13 Glucose (Fingerstick) 220 mg/dL (70-99) 373 mg/dL (70-99) Sodium Level 138 mmol/L (136-145) Potassium Level 3.0 mmol/L (3.5-5.1) Chloride Level 105 mmol/L (98-107) Carbon Dioxide Level 23 mmol/L (21-32) Anion Gap 10 (6-14) Blood Urea Nitrogen 17 mg/dL (8-26) Creatinine 1.3 mg/dL (0.7-1.3) Estimated GFR (Cockcroft-Gault) 68.8 Glucose Level 341 mg/dL (70-99) Calcium Level 7.6 mg/dL (8.5-10.1) Laboratory Tests Test 12/28/16 11:22 12/28/16 15:30 12/28/16 17:25 12/28/16 18:10 Glucose (Fingerstick) 489 mg/dL (70-99) 144 mg/dL (70-99) 93 mg/dL (70-99) 100 mg/dL (70-99) Test 12/28/16 20:44 12/29/16 05:20 12/29/16 09:13 Glucose (Fingerstick) 220 mg/dL (70-99) 373 mg/dL (70-99) Sodium Level 138 mmol/L (136-145) Potassium Level 3.0 mmol/L (3.5-5.1) Chloride Level 105 mmol/L (98-107) Carbon Dioxide Level 23 mmol/L (21-32) Anion Gap 10 (6-14) Blood Urea Nitrogen 17 mg/dL (8-26) Creatinine 1.3 mg/dL (0.7-1.3) Estimated GFR (Cockcroft-Gault) 68.8 Glucose Level 341 mg/dL (70-99) Calcium Level 7.6 mg/dL (8.5-10.1) Medications Current Medications Ondansetron HCl (Zofran) 4 mg PRN Q8HRS PRN IV NAUSEA/VOMITING; Start 12/25/16 at 18:15; Stop 12/26/16 at 11:15; Status DC Sodium Chloride 1,000 ml @ 75 mls/hr [id number] IV Last administered on 12/25/16 18:27; Start 12/25/16 at 18:30; Stop 12/26/16 at 18:29; Status DC Insulin Detemir (Levemir) 20 units QHS SQ Last administered on 12/28/16 20:51; Start 12/25/16 at 21:00 Insulin Aspart (Novolog) 0-7 UNITS TIDWMEALS SQ Last administered on 12/29/16 09:45; Start 12/26/16 at 08:00 Dextrose (Dextrose 50%-Water Syringe) 12.5 gm PRN Q15MIN PRN IV SEE COMMENTS; Start 12/25/16 at 18:15 Potassium Chloride (Klor-Con) 40 meq 1X ONCE PO Last administered on 12/25/16 20:01; Start 12/25/16 at 20:00; Stop 12/25/16 at 20:01; Status DC Insulin Aspart (Novolog) 17 units TIDAC SQ ; Start 12/26/16 at 07:30; Stop at 07:30; Status DC Enoxaparin Sodium (Lovenox 40mg Syringe) 40 mg DAILY SQ Last administered on 08:30; Start 12/26/16 at 09:00 Famotidine (Pepcid) 20 mg BID PO Last administered on 12/29/16 09:36; Start at 09:00 Ferrous Sulfate (Feosol) 325 mg DAILY PO Last administered on 12/29/16 09:36; Start 12/26/16 at 09:00 Acetaminophen/ Hydrocodone Bitart (Lortab 5/325) 1 tab PRN Q6HRS PRN PO SEVERE PAIN; Start 12/25/16 at 21:15 Lisinopril (Prinivil) 5 mg DAILY PO Last administered on 12/29/16 09:36; Start 12/26/16 at 09:00 Piperacillin Sod/ Tazobactam Sod (Zosyn) 3.375 gm Q6HRS IV ; Start 12/26/16 at 00 :00; Status UNV Tramadol HCl (Ultram) 50 mg PRN Q6HRS PRN PO MODERATE PAIN; Start 12/25/16 at 21 :15 Piperacillin Sod/ Tazobactam Sod 3.375 gm/Sodium Chloride 50 ml @ 100 mls/hr Q6HRS IV Last administered on 12/29/16 06:29; Start 12/26/16 at 00:00 Insulin Aspart (Novolog) 17 units 1X ONCE SQ Last administered on 12/25/16 21: 41; Start 12/25/16 at 21:40; Stop 12/25/16 at 21:51; Status DC Potassium Chloride (Klor-Con) 20 meq 1X ONCE PO Last administered on 12/25/16 22:30; Start 12/25/16 at 22:00; Stop 12/25/16 at 22:01; Status DC Insulin Aspart (Novolog) 12 units TIDAC SQ Last administered on 12/29/16 09:46 ; Start 12/26/16 at 07:30 Insulin Aspart (Novolog) 20 units 1X ONCE SQ Last administered on 12/25/16 23: 36; Start 12/25/16 at 23:30; Stop 12/25/16 at 23:31; Status DC Insulin Detemir (Levemir) 12 units 1X ONCE SQ Last administered on 12/25/16 23 :36; Start 12/25/16 at 23:30; Stop 12/25/16 at 23:31; Status DC Ondansetron HCl (Zofran) 4 mg PRN Q6HRS PRN IV NAUSEA/VOMITING; Start 12/26/16 at 11:14; Stop 12/27/16 at 11:13; Status DC Acetaminophen (Tylenol) 650 mg PRN Q6HRS PRN PO MILD PAIN; Start 12/26/16 at 11: 15 Insulin Aspart (Novolog) 12 units ONCE ONCE SQ ; Start 12/26/16 at 21:00; Stop 12/26/16 at 21:02; Status DC Insulin Aspart (Novolog) 8 units 1X ONCE SQ Last administered on 12/26/16 21: 34; Start 12/26/16 at 21:15; Stop 12/26/16 at 21:16; Status DC Sodium Chloride 1,000 ml @ 75 mls/hr [id number] IV Last administered on 09:31; Start 12/27/16 at 16:45 Clopidogrel Bisulfate (Plavix) 75 mg [id number] PO Last administered on 09:36; Start 12/28/16 at 08:00 Hydralazine HCl (Apresoline) 10 mg 1X ONCE IVP Last administered on 12/28/16 14:42; Start 12/28/16 at 14:30; Stop 12/28/16 at 14:31; Status DC Propofol 20 ml @ As Directed STK-MED ONCE IV ; Start 12/28/16 at 15:43; Stop 12/28 at 15:44; Status DC Ondansetron HCl (Zofran) 4 mg STK-MED ONCE .ROUTE ; Start 12/28/16 at 15:43; Stop 12/28/16 at 15:44; Status DC Dexamethasone Sodium Phosphate (Decadron) 20 mg STK-MED ONCE .ROUTE ; Start 12/28 at 15:43; Stop 12/28/16 at 15:44; Status DC Fentanyl Citrate (Fentanyl 2ml Vial) 100 mcg STK-MED ONCE .ROUTE ; Start at 15:43; Stop 12/28/16 at 15:44; Status DC Lidocaine HCl (Lidocaine HCl 2% Abboject) 100 mg STK-MED ONCE .ROUTE ; Start 12/28/16 at 15:45; Stop 12/28/16 at 15:46; Status DC Ephedrine Sulfate 50 mg STK-MED ONCE IV ; Start 12/28/16 at 15:45; Stop 12/28/16 at 15:46; Status DC Lidocaine HCl (Glydo (Lidocaine) Jelly) 6 vincent STK-MED ONCE .ROUTE ; Start at 15:49; Stop 12/28/16 at 15:50; Status DC Iohexol (Omnipaque 300 Mg/ml) 50 ml STK-MED ONCE .ROUTE Last administered on t 16:49; Start 12/28/16 at 15:49; Stop 12/28/16 at 15:50; Status DC Lidocaine HCl (Glydo (Lidocaine) Jelly) 6 vincent STK-MED ONCE .ROUTE ; Start at 15:50; Stop 12/28/16 at 15:51; Status DC Phenylephrine HCl 1 mg STK-MED ONCE IV ; Start 12/28/16 at 16:53; Stop 12/28/16 at 16:54; Status DC Tamsulosin HCl (Flomax) 0.4 mg DAILY PO Last administered on 12/29/16t 09:36; Start 12/28/16 at 16:00 Iohexol (Omnipaque 240 Mg/ml) 30 ml 1X ONCE PO ; Start 12/29/16 at 09:30; Stop 12/29/16 at 09:31; Status DC Iohexol (Omnipaque 300 Mg/ml) 75 ml 1X ONCE IV ; Start 12/29/16 at 09:30; Stop 12/29/16 at 09:31; Status DC Info (Do NOT chart on this entry -- for MONITORING) 1 each PRN DAILY PRN MC SEE COMMENTS; Start 12/29/16 at 09:30; Stop 12/31/16 at 09:29 Potassium Chloride (Klor-Con) 40 meq 1X ONCE PO ; Start 12/29/16 at 10:30; Stop 12/29/16 at 10:31 Active Scripts Active Reported Piperacil-Tazobact 3.375 Gm Vl (Piperacillin Sodium/Tazobactam) 3.375 Gm Vial 3.375 Gm IV Q6HRS Ferrous Sulfate 325 Mg Tablet 300 Mg PO DAILY Tramadol Hcl 50 Mg Tablet 1 Tab PO PRN Q6HRS PRN Silver Nitrate Applicator 1 Each Stick..ea. 1 Each TP Famotidine 20 Mg Tablet 20 Mg PO BID Lisinopril 5 Mg Tablet 1 Tab PO DAILY Hydrocodone-Apap 5-325 (Hydrocodone Bit/Acetaminophen) 1 Each Tablet 1 Tab PO PRN Q6HRS PRN Lovenox (Enoxaparin Sodium) 40 Mg/0.4 Ml Disp.syrin 0.4 Ml SQ DAILY Humulin R (Insulin Regular, Human) 100 Unit/1 Ml Vial 7 Unit IJ TID Lantus Solostar (Insulin Glargine,Hum.rec.anlog) 100 Unit/1 Ml Insuln.pen 30 Unit SQ QHS Vitals/I & O Vital Sign - Last 24 Hours 12/28/16 12/28/16 12/28/16 12/28/16 14:39 14:42 15:14 17:20 Temp 97.9 99.0 97.1 97.9 99.0 97.1 Pulse 97 97 91 84 Resp 18 12 16 B/P (MAP) 160/101 (120) 160/101 146/80 89/55 Pulse Ox 100 98 99 O2 Delivery Room Air Room Air Simple Mask O2 Flow Rate 10 12/28/16 12/28/16 12/28/16 12/28/16 17:20 17:35 17:48 17:50 Pulse 92 84 Resp 18 18 B/P (MAP) 135/72 126/79 Pulse Ox 99 98 O2 Delivery Mask Room Air Room Air Room Air O2 Flow Rate 10 12/28/16 12/28/16 12/28/16 12/28/16 18:15 18:30 18:45 19:00 Temp 96.9 99.1 96.9 99.1 Pulse 87 93 91 96 Resp 18 20 B/P (MAP) 142/82 (102) 137/93 (108) 154/93 (113) 129/70 (89) Pulse Ox 98 96 O2 Delivery Room Air Room Air 12/28/16 12/28/16 12/28/16 12/29/16 20:00 21:07 23:12 03:12 Temp 99.1 98.0 97.6 99.1 98.0 97.6 Pulse 98 99 111 Resp 22 18 18 B/P (MAP) 119/80 (93) 152/96 (114) 147/89 (108) Pulse Ox 96 99 99 O2 Delivery Room Air Room Air Room Air Room Air 12/29/16 12/29/16 07:00 09:36 Temp 98.6 98.6 Pulse 95 95 Resp 18 B/P (MAP) 126/73 (90) 126/73 Pulse Ox 97 Intake and Output 12/28/16 12/28/16 12/29/16 15:00 23:00 07:00 Intake Total 720 ml Output Total 1100 ml 625 ml 1450 ml Balance -1100 ml -625 ml -730 ml ELLY CHAMBERS MD December 29, 2016 10:32
[2016-12-29 11:00] VITALS: BP 135/83
--- NOTE | 2016-12-29 12:03 | PDOC ---
Renal-Progress Notes Subjective Notes Notes NONE History of Present Illness Hx of present illness BETTER Vitals Vitals Vital Signs Date Time Temp Pulse Resp B/P (MAP) Pulse Ox O2 Delivery O2 Flow Rate FiO2 12/29/16 09:36 95 126/73 12/29/16 08:00 Room Air 12/29/16 07:00 98.6 18 97 98.6 12/28/16 17:20 10 Weight Weight [ ] I.O. Intake and Output Intake and Output 12/29/16 06:59 Intake Total 720 ml Output Total 3175 ml Balance -2455 ml Intake Oral 720 ml Output Urine Total 3175 ml Bladder Scan Volume Amount # Bowel Movements 4 Labs Labs Laboratory Tests Test 12/28/16 15:30 12/28/16 17:25 12/28/16 18:10 12/28/16 20:44 Glucose (Fingerstick) 144 mg/dL (70-99) 93 mg/dL (70-99) 100 mg/dL (70-99) 220 mg/dL (70-99) Test 12/29/16 05:20 12/29/16 09:13 Sodium Level 138 mmol/L (136-145) Potassium Level 3.0 mmol/L (3.5-5.1) Chloride Level 105 mmol/L (98-107) Carbon Dioxide Level 23 mmol/L (21-32) Anion Gap 10 (6-14) Blood Urea Nitrogen 17 mg/dL (8-26) Creatinine 1.3 mg/dL (0.7-1.3) Estimated GFR (Cockcroft-Gault) 68.8 Glucose Level 341 mg/dL (70-99) Calcium Level 7.6 mg/dL (8.5-10.1) Glucose (Fingerstick) 373 mg/dL (70-99) Review of Systems Constitutional: yes: no symptom reported Pulmonary: Yes no symptom reported Gastrointestional: Yes: no symptom reported Genitourinary: Yes: no symptom reported Musculoskeletal: Yes: no symptom reported Skin: Yes no symptom reported Physical Exam General Appearance: no apparent distress, GCS Respiratory: bilateral CTA Heart: S1S2, RRR Abdomen: soft, bowel sounds present Extremities: pulses present Neurology: alert, oriented Musculoskeletal: Osteoarthritis Assessment Assessment IMP HYDRO-S/P URETERAL STENTS TE-RESOLVED DEHYDRATION PLAN WILL SIGN OFF HUMAIRA ODELL MD December 29, 2016 12:03
[2016-12-29] MEDS ORDERED: AMOX1TAB11 PO (12:52)
[2016-12-29] MEDS ORDERED: TAMS0.4C97 PO (12:55)
--- NOTE | 2016-12-29 13:43 | RAD ---
Exam performed: CT chest, abdomen and pelvis with contrast. History: Abnormal previous noncontrast CT abdomen and pelvis, probable lymphadenopathy. Date of service: 12/29/16. Comparison: CT abdomen pelvis from 12/28/16. Technique: Contiguous helical acquisitions are obtained through the chest, abdomen and pelvis during intravenous administration of 75 cc of Omnipaque 300. Sagittal and coronal reformatted images are obtained and reviewed. CT chest findings: Structures at the thoracic inlet including both lobes of the thyroid gland appear normal. The neck and intrathoracic great vessels appear grossly normal in course and caliber. Mild atheromatous calcification of the aorta and origin of neck vessels is seen. No dominant mediastinal or hilar adenopathy is seen. Mild aneurysmal dilatation of the ascending aorta which measures up to 3.6 cm in maximum dimension. The central airways patent without endoluminal. Aorta is normal in caliber demonstrating diffuse atheromatous calcification. Heart size is within limits of normal. Moderate pericardial effusion is seen. There is atheromatous calcification of the coronary arteries and aortic root. Interrogation of lungs demonstrates linear bibasal atelectasis. No focal infiltrates or masses are seen. Interrogation of bone windows is essentially unremarkable. Impression: 1. Mild aneurysmal dilatation of the descending aorta measuring up to 3.6 cm at the level of pulmonary artery bifurcation. 2. Aortic calcification with atheromatous calcification of the coronary arteries. 3. Moderate pericardial effusion. End impression. CT abdomen and pelvis findings: Moderate pericardial effusion. Bibasal atelectasis. The liver, spleen and pancreas appear normal. Cholelithiasis. Both adrenal glands and bilateral kidneys are normal in size with symmetric excretion of contrast via both kidneys. Bilateral nephroureteral stents are seen with mild fullness of bilateral kidneys. Multiple collateral vessels are seen in the splenic hilum and extending up to the renal hilum. Aorta demonstrates diffuse atheromatous calcification. Occasional subcentimeter retroperitoneal lymph nodes are seen. No pathologically enlarged retroperitoneal or mesenteric lymph nodes are identified. Small bowel loops are nondilated and unremarkable. Scattered stool in the colon. Small amount of free fluid in the right paracolic gutter. The urinary bladder is decompressed secondary to Turcios's catheter. Stool impaction in the rectosigmoid region. No free or focal fluid collections are identified. Interrogation of bone windows is unremarkable. Impression: 1. No acute intra-abdominal or pelvic process seen. 2. Bilateral nephroureteral stents with mild bilateral hydronephrosis. 3. Moderate pericardial effusion. 4. Multiple collateral vessels at the splenic hilum extending up to the renal hilum. In absence of cirrhosis, the etiology of this finding is not clear. 5. Diffuse scattered stool throughout the colon with stool impaction in the rectum. PQRS Compliance Statement: One or more of the following individualized dose reduction techniques were utilized for this examination: 1. Automated exposure control 2. Adjustment of the mA and/or kV according to patient size 3. Use of iterative reconstruction technique
--- NOTE | 2016-12-29 14:46 | PDOC ---
PROGRESS NOTES Assessment Assessment Metabolic encephalopathy. Subacute small right temporal lobe and left frontal and parietal lobe infracts, embolic etiology. Seizure in 12/06, provoked. Hyperglycemia DM HTN HLD Anemia. 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 Amputation below the knee. Left knee wound. Malnutrition. Muscle wasting. Hepatogastric node. RECOMMENDATIONS/PLAN: Continue Plavix 75 mg daily. Control hyperglycemia. Treat medical diseases. Wound care. FU with PCP. Carotid A US + Doppler : No high grade stenosis. Echo + Bubble study: Unremarkable. EEG: No epileptiform discharges or electrographic seizures. Fasting lipid panel: elevated. SUBJECTIVE: Stating doing fine. OBJECTIVE: No acute focalized motor or sensory deficits. Past Medical History Cardiovascular: HTN Pulmonary: No pertinent hx CENTRAL NERVOUS SYSTEM: Other GI: No pertinent hx Heme/Onc: No pertinent hx Hepatobiliary: No pertinent hx Psych: No pertinent hx Musculoskeletal: Osteoarthritis Rheumatologic: No pertinent hx Infectious disease: No pertinent hx Renal/: No pertinent hx Endocrine: Diabetes ALLERGY: ASA MEDICATIONS: Refer to [facility] REVIEW OF SYSTEMS: Constitutional: No malnutrition, weight loss, cachexia. Head: No traumatic brain or head injury. Skin: No edema, or rash. Ear: No infection. Eyes: No vision loss, or diplopia. Nose: No bleeding or purulent discharges. Hearing: No hearing decrease. Neck: No injury. Cardiac: HTN Pulmonary: No COPD. GI: No GI Ulcer, GI bleeding Urinary/genital: UTI. Endocrine: Diabetes Mellitus Skeletomuscular: No muscular atrophy, deformity. Neurological: see HP. Psychiatric: Denies drug use/abuse. Otherwise, not -ocrtn review of systems. PHYSICAL EXAMINATION: General appearance in subacute distress. HEENT: Normocephalic and nontraumatic. Eyes, nose, ears, and throat are unremarkable. Hearing decrease. Neck is supple. No lymphadenopathy. No bruits are heard over the carotid artery. No Crepitus. Cardiovascular: S1, S2, regular rate and rhythm. Pulmonary: Clear to auscultation bilaterally. Abdomen: Bowel sounds are positive. Abdomen is soft, nontender, and nondistended. Extremities: No rash, lesions, or edema. No restriction of range of motion NEUROLOGICAL EXAMINATION: Awake. Oriented to time, place and person. PERRL. EOMI. CN: no focal findings. Muscle tone: within normal. Muscle atrophy noted in hands. Muscle strength: 4 UE DTR: 2 UE, 1-2 at knee. LE amputated below the knee. Plantar reflex: LE amputated. Gait: Unable to walk w/o assistance. Sensory exam: no abnormal findings. No acute cerebellar signs elicited. F-T-N test fine. Muscle atrophy noted in hands and legs. Objective Objective Vital Signs Date Time Temp Pulse Resp B/P (MAP) Pulse Ox O2 Delivery O2 Flow Rate FiO2 12/29/16 11:00 98.3 87 20 135/83 (100) 98 Room Air 98.3 12/28/16 17:20 10 Intake and Output 12/29/16 07:00 Intake Total 720 ml Output Total 3175 ml Balance -2455 ml Intake Oral 720 ml Output Urine Total 3175 ml Bladder Scan Volume Amount # Bowel Movements 4 Vitals Signs Vitals VS - Last 72 Hours, by Label Date Time Temp Pulse Resp B/P (MAP) Pulse Ox O2 Delivery O2 Flow Rate FiO2 12/29/16 11:00 98.3 87 20 135/83 (100) 98 Room Air 98.3 12/29/16 09:36 95 126/73 12/29/16 08:00 Room Air 12/29/16 07:00 98.6 95 18 126/73 (90) 97 98.6 12/29/16 03:12 97.6 111 18 147/89 (108) 99 Room Air 97.6 12/28/16 23:12 98.0 99 18 152/96 (114) 99 Room Air 98.0 12/28/16 21:07 99.1 98 22 119/80 (93) 96 Room Air 99.1 12/28/16 20:00 Room Air 12/28/16 19:00 99.1 96 20 129/70 (89) 96 Room Air 99.1 12/28/16 18:45 91 154/93 (113) 12/28/16 18:30 93 137/93 (108) 12/28/16 18:15 96.9 87 18 142/82 (102) 98 Room Air 96.9 12/28/16 17:50 84 18 126/79 98 Room Air 12/28/16 17:48 Room Air 12/28/16 17:35 92 18 135/72 99 Room Air 12/28/16 17:20 Mask 10 12/28/16 17:20 97.1 84 16 89/55 99 Simple Mask 10 97.1 12/28/16 15:14 99.0 91 12 146/80 98 Room Air 99.0 12/28/16 14:42 97 160/101 12/28/16 14:39 97.9 97 18 160/101 (120) 100 Room Air 97.9 12/28/16 10:30 98.8 87 18 169/85 (113) 97 Room Air 98.8 12/28/16 07:55 Room Air 12/28/16 07:05 97.9 80 18 162/88 (112) 97 Room Air 97.9 Laboratory Laboratory Laboratory Tests Test 12/28/16 15:30 12/28/16 17:25 12/28/16 18:10 12/28/16 20:44 Glucose (Fingerstick) 144 mg/dL (70-99) 93 mg/dL (70-99) 100 mg/dL (70-99) 220 mg/dL (70-99) Test 12/29/16 05:20 12/29/16 09:13 12/29/16 11:45 Sodium Level 138 mmol/L (136-145) Potassium Level 3.0 mmol/L (3.5-5.1) Chloride Level 105 mmol/L (98-107) Carbon Dioxide Level 23 mmol/L (21-32) Anion Gap 10 (6-14) Blood Urea Nitrogen 17 mg/dL (8-26) Creatinine 1.3 mg/dL (0.7-1.3) Estimated GFR (Cockcroft-Gault) 68.8 Glucose Level 341 mg/dL (70-99) Calcium Level 7.6 mg/dL (8.5-10.1) Glucose (Fingerstick) 373 mg/dL (70-99) 297 mg/dL (70-99) Medication Medications Current Medications Dexamethasone Sodium Phosphate (Decadron) 20 mg STK-MED ONCE .ROUTE ; Start 12/28 at 15:43; Stop 12/28/16 at 15:44; Status DC Ephedrine Sulfate 50 mg STK-MED ONCE IV ; Start 12/28/16 at 15:45; Stop 12/28/16 at 15:46; Status DC Fentanyl Citrate (Fentanyl 2ml Vial) 100 mcg STK-MED ONCE .ROUTE ; Start at 15:43; Stop 12/28/16 at 15:44; Status DC Info (Do NOT chart on this entry -- for MONITORING) 1 each PRN DAILY PRN MC SEE COMMENTS; Start 12/29/16 at 09:30; Stop 12/31/16 at 09:29 Iohexol (Omnipaque 240 Mg/ml) 30 ml 1X ONCE PO Last administered on 12/29/16 09:30; Start 12/29/16 at 09:30; Stop 12/29/16 at 09:31; Status DC Iohexol (Omnipaque 300 Mg/ml) 50 ml STK-MED ONCE .ROUTE Last administered on 16:49; Start 12/28/16 at 15:49; Stop 12/28/16 at 15:50; Status DC Iohexol (Omnipaque 300 Mg/ml) 75 ml 1X ONCE IV Last administered on 12/29/16 11:08; Start 12/29/16 at 09:30; Stop 12/29/16 at 09:31; Status DC Lidocaine HCl (Glydo (Lidocaine) Jelly) 6 vincent STK-MED ONCE .ROUTE ; Start at 15:49; Stop 12/28/16 at 15:50; Status DC Lidocaine HCl (Glydo (Lidocaine) Jelly) 6 vincent STK-MED ONCE .ROUTE ; Start at 15:50; Stop 12/28/16 at 15:51; Status DC Lidocaine HCl (Lidocaine HCl 2% Abboject) 100 mg STK-MED ONCE .ROUTE ; Start 12/28/16 at 15:45; Stop 12/28/16 at 15:46; Status DC Ondansetron HCl (Zofran) 4 mg STK-MED ONCE .ROUTE ; Start 12/28/16 at 15:43; Stop 12/28/16 at 15:44; Status DC Phenylephrine HCl 1 mg STK-MED ONCE IV ; Start 12/28/16 at 16:53; Stop 12/28/16 at 16:54; Status DC Potassium Chloride (Klor-Con) 40 meq 1X ONCE PO Last administered on 12:50; Start 12/29/16 at 10:30; Stop 12/29/16 at 10:31; Status DC Propofol 20 ml @ As Directed STK-MED ONCE IV ; Start 12/28/16 at 15:43; Stop 12/28 at 15:44; Status DC Tamsulosin HCl (Flomax) 0.4 mg DAILY PO Last administered on 12/29/16t 09:36; Start 12/28/16 at 16:00 Comment Review of Relevant I have reviewed the following items yobani (where applicable) has been applied. MERT MAGANA MD December 29, 2016 14:46
[2016-12-29 15:00] VITALS: BP 119/69
--- NOTE | 2017-01-04 02:25 | DS ---
DATE OF DISCHARGE: 12/29/2016 DISCHARGE DIAGNOSES: 1. Hydroureter status post cystoscopy with bilateral retrograde pyelogram and right ureteral stent placement, currently on Turcios catheter. 2. Encephalopathy, likely due to hyperglycemia ____ noncompliance, resolved. 3. Diabetes mellitus, not controlled, noncompliance. HbA1c more than 10. 4. Hypertension, stable. 5. Acute kidney injury, vasomotor nephropathy. 6. Bilateral legs below-knee amputation with wounds, chronic, stable. 7. Peripheral vascular disease, chronic. 8. History of subacute small right temporal lobe and left frontal and parietal lobe infracts, embolic etiology, on Plavix. 9. Hyperlipidemia. 10. Lymphadenopathy, likely reactive, seen by oncology, needs to repeat imaging in few months. BRIEF HOSPITAL COURSE: A 56-year-old male patient admitted to the hospital for encephalopathy likely due to uncontrolled diabetes. During hospitalization, he was evaluated by Nephrology and Urology for hydroureter and on the TE. Dr. Butcher did a cystoscopy and retrograde pyelogram with stent placement. Post-procedure, the patient was kept on Turcios catheter. He was noted to have good urine output. The patient has been sent home in stable condition as his mental status improved and back to baseline. The patient already had established set up with home health services. He has been advised and recommended to follow up with recommendations, especially controlling blood sugars. He needs to follow up with Dr. Butcher in 2 weeks for voiding trial. DISCHARGE EXAMINATION: Please see my progress note. DISCHARGE CONDITION: Stable. PROGNOSIS: Guarded. FOLLOWUP: With Dr. Butcher and primary care doctor in 2 weeks. MEDICATIONS: Reviewed and reconciled. Please see MRAD. DIET: Diabetic diet. Total time spent for discharge is 35 minutes for patient education, counseling, and coordination of care. BEVERLY SIMONS MD DR: JANEL/maria isabel JOB#: [id number] / [id number]
== END 2016-12-29 20:30 | disposition home health service (06) | DRG 682 ==
LOC: ER 14:16 → 5 SOUTH 18:05
PROVIDERS: ADMIT Internal Medicine; ATTEND Internal Medicine
PROC: 0T788DZ Dilation of Bilateral Ureters with Intraluminal Device, Via Natural or Artificial Opening Endoscopic (ICD-10-PCS; 2016-12-28)
PROC: 0T2BX0Z Change Drainage Device in Bladder, External Approach (ICD-10-PCS; 2016-12-28)
PROC: BT141ZZ Fluoroscopy of Kidneys, Ureters and Bladder using Low Osmolar Contrast (ICD-10-PCS; principal; 2016-12-28 16:00)
DX: N17.9 Acute kidney failure, unspecified (principal); G93.41 Metabolic encephalopathy; E43 Unspecified severe protein-calorie malnutrition; N13.30 Unspecified hydronephrosis; D63.8 Anemia in other chronic diseases classified elsewhere; E78.5 Hyperlipidemia, unspecified; E86.0 Dehydration; I10 Essential (primary) hypertension; I73.9 Peripheral vascular disease, unspecified; M19.90 Unspecified osteoarthritis, unspecified site; R62.7 Adult failure to thrive; Z79.02 Long term (current) use of antithrombotics/antiplatelets; Z79.4 Long term (current) use of insulin; Z79.899 Other long term (current) drug therapy; Z82.49 Family history of ischemic heart disease and other diseases of the circulatory system; Z88.6 Allergy status to analgesic agent; Z89.511 Acquired absence of right leg below knee; Z89.512 Acquired absence of left leg below knee; Z90.49 Acquired absence of other specified parts of digestive tract; Z91.14 Patient's other noncompliance with medication regimen; Z68.22 Body mass index [BMI] 22.0-22.9, adult
CPT/HCPCS: 36415; 70450; 71010; 71260; 74176; 74177; 74420; 76700; 76770; 80048; 80053; 81001; 82570; 82607; 82947; 83036; 83735; 84156; 84443; 85027; 85651; 87641; C1769; C2617; J0360; J1100; J1650; J1815; J2370; J2405; J2543; J2704; J3010; J7030; Q9966; Q9967; 97110; 97530; 99285-25

== ENCOUNTER 2017-05-02 20:36 | Emergency (ER) | payer OTHER ==
[~2017-05-02] VITALS: Ht 137.2 cm; Wt 65.8 kg
[~2017-05-02 20:36] MED LIST changes: +AMOX1TAB11 PO; +ASPI-612 PO; -ASPI81TA9 PO; -HYDR-2666 PO; +HYDR-2758 PO; +TAMS0.4C97 PO; +[UNRECOGNIZED DRUG - CODE] TP; -[UNRECOGNIZED DRUG - CODE] TP
[2017-05-02 20:57] LABS: BASO # 0.1 x10^3/uL (0.0-0.2); BASO % 1 % (0-3); EOS % 1 % (0-3); HEMATOCRIT 24.4 % (39.0-53.0); HEMOGLOBIN 8.4 g/dL (13.0-17.5); LYMPH # 2.7 x10^3/uL (1.0-4.8); LYMPH % 29 % (24-48); MEAN CORPUSCULAR HEMOGLOBIN 29 pg (25-35); MEAN CORPUSCULAR HGB CONC 35 g/dL (31-37); MEAN CORPUSCULAR VOLUME 85 fL (79-100); MONO % 7 % (0-9); NEUT % 63 % (31-73); PLATELET COUNT 220 x10^3/uL (140-400); RED BLOOD COUNT 2.89 x10^6/uL (4.30-5.70); RED CELL DISTRIBUTION WIDTH 15.1 % (11.5-14.5); WHITE BLOOD COUNT 9.3 x10^3/uL (4.0-11.0)
[2017-05-02 21:17] LABS: CALCIUM 8.2 mg/dL (8.5-10.1); CREATININE 1.8 mg/dL (0.7-1.3); GFR 47.3
[2017-05-02 21:23] LABS: ALBUMIN 1.4 g/dL (3.4-5.0); DIRECT BILIRUBIN 0.1 mg/dL (0.0-0.2); TOTAL BILIRUBIN 0.2 mg/dL (0.2-1.0); TOTAL PROTEIN 7.5 g/dL (6.4-8.2)
--- NOTE | 2017-05-02 21:27 | RAD ---
CT scan of the head without contrast 05/02/2017 Clinical History: Confusion. Technique: Unenhanced, contiguous, 5 mm axial sections were obtained through the head. One or more of the following individualized dose reduction techniques were utilized for this study: 1. Automated exposure control. 2. Adjustment of the mA and/or kV according to patient size. 3. Use of iterative reconstruction technique. Findings: Comparison study is dated 12/25/2016. There is generalized parenchymal atrophy. Areas of decreased attenuation are seen within the periventricular and subcortical white matter of both cerebral hemispheres consistent with areas of small vessel ischemic disease. No acute parenchymal abnormality is seen. No extra-axial fluid collection is noted. No skull fracture is seen. Impression: No acute intracranial abnormality is seen. Electronically signed by: Adalberto Julien MD (05/02/2017 9:24 PM) [facility]
[2017-05-02 21:52] LABS: BILIRUBIN,URINE NEGATIVE (NEG); GLUCOSE,URINE 100 mg/dL (NEG); NITRITE,URINE NEGATIVE (NEG); PH,URINE 5.5; PROTEIN,URINE >=300 mg/dL (NEG-TRACE); UROBILINOGEN,URINE 0.2 mg/dL (0.2 mg/dL)
--- NOTE | 2017-05-02 21:58 | PHYS DOC ---
Past Medical History Past Medical History: Diabetes-Type II, Hypertension Past Surgical History: Other Additional Past Surgical Histo: HENRRY. BKA Alcohol Use: None Drug Use: None Adult General Chief Complaint Chief Complaint: ALTERED MENTAL STATUS HPI HPI 56-year-old male presenting to the emergency department today reportedly found unresponsive in his chair by his . Upon EMS arrival the patient was hypotensive and given saline which improved his blood pressure in route. Upon arrival the patient is alert and oriented and without any complaints. He did not remember exactly what happened but last murmurs being in the chair. Location generalized. Duration intermittent. Alleviated by IV fluids. No exacerbating factors present. Review of systems was negative for chest pain palpitations fevers chills cough abdominal pain nausea vomiting. All other review of systems is negative unless otherwise noted in history of present illness. ED course: 56-year-old male presenting to the emergency department after having an unresponsive/syncopal episode. Upon arrival the patient's blood pressure was 120 systolic and the patient was alert and without any complaints. He was afebrile. Normal neurologic exam. Noted bilateral BKA's. EKG obtained which showed sinus rhythm with a regular rate. [place] normal. ST segments congruent. Not suggestive of ACS. Chest x-ray obtained. Chest x-ray reviewed by myself shows no obvious infiltrate or pneumothorax present. No obvious acute cardiopulmonary process present. Blood work shows anemia. Patient denies having dark stools or any evidence of GI bleeding. Urinalysis positive for urinary tract infection. Patient prescribed macrobid. I couldn't use Bactrim because of the patient's arb. Patient's diabetic medications came up as a flag for using Levaquin. The patient was then discharged home in stable condition to follow up with their primary care physician over the next 2-3 days. They were to return if their symptoms worsened or if they were concerned for any reason. Face -to-face discharge instructions and return precautions were given. Patient's questions were answered to their satisfaction. Patient is comfortable plan. Review of Systems Review of Systems SEE ABOVE. Allergies Allergies Allergies Coded Allergies Type Severity Reaction Last Updated Verified I S O L A T I O N *CONTACT* Allergy Unknown 12/28/16 Yes aspirin Adverse Reaction Intermediate Nausea and Vomiting, GI BLEED 12/28/16 Yes Physical Exam Physical Exam SEE ABOVE Constitutional: Well developed, well nourished, no acute distress, non-toxic appearance. [] HENT: Normocephalic, atraumatic, bilateral external ears normal, oropharynx moist, no oral exudates, nose normal. [] Eyes: PERRLA, EOMI, conjunctiva normal, no discharge. [] Neck: Normal range of motion, no tenderness, supple, no stridor. [] Cardiovascular:Heart rate regular rhythm, no murmur [] Lungs & Thorax: Bilateral breath sounds clear to auscultation [] Abdomen: Bowel sounds normal, soft, no tenderness, no masses, no pulsatile masses. [] Skin: Warm, dry, no erythema, no rash. [] Back: No tenderness, no CVA tenderness. [] Extremities: No tenderness, no cyanosis, no clubbing, ROM intact, bkas present. Neurologic: Mental status: Awake oriented and alert x3 Cranial nerves: Extraocular movements intact, eyebrows pepito bilaterally smile symmetric, uvula elevation, shoulder shrug intact, tongue protrusion normal DTRs: 2+ Sensation: equal and normal in all extremities Strength: 5/5 in upper and lower extremities bilaterally Psychologic: Affect normal, judgement normal, mood normal. [] Current Patient Data Vital Signs Vital Signs Date Time Temp Pulse Resp B/P (MAP) Pulse Ox O2 Delivery O2 Flow Rate FiO2 05/02/17 20:36 98.7 89 19 110/64 (79) 97 Room Air 98.7 Lab Values Laboratory Tests Test 05/02/17 20:45 05/02/17 20:47 05/02/17 21:43 White Blood Count 9.3 x10^3/uL (4.0-11.0) Red Blood Count 2.89 x10^6/uL (4.30-5.70) L Hemoglobin 8.4 g/dL (13.0-17.5) L Hematocrit 24.4 % (39.0-53.0) L Mean Corpuscular Volume 85 fL (79-100) Mean Corpuscular Hemoglobin 29 pg (25-35) Mean Corpuscular Hemoglobin Concent 35 g/dL (31-37) Red Cell Distribution Width 15.1 % (11.5-14.5) H Platelet Count 220 x10^3/uL (140-400) Neutrophils (%) (Auto) 63 % (31-73) Lymphocytes (%) (Auto) 29 % (24-48) Monocytes (%) (Auto) 7 % (0-9) Eosinophils (%) (Auto) 1 % (0-3) Basophils (%) (Auto) 1 % (0-3) Neutrophils # (Auto) 5.8 x10^3uL (1.8-7.7) Lymphocytes # (Auto) 2.7 x10^3/uL (1.0-4.8) Monocytes # (Auto) 0.7 x10^3/uL (0.0-1.1) Eosinophils # (Auto) 0.1 x10^3/uL (0.0-0.7) Basophils # (Auto) 0.1 x10^3/uL (0.0-0.2) Sodium Level 139 mmol/L (136-145) Potassium Level 3.0 mmol/L (3.5-5.1) L Chloride Level 104 mmol/L (98-107) Carbon Dioxide Level 26 mmol/L (21-32) Anion Gap 9 (6-14) Blood Urea Nitrogen 29 mg/dL (8-26) H Creatinine 1.8 mg/dL (0.7-1.3) H Estimated GFR (Cockcroft-Gault) 47.3 Glucose Level 224 mg/dL (70-99) H Lactic Acid Level 1.0 mmol/L (0.4-2.0) Calcium Level 8.2 mg/dL (8.5-10.1) L Total Bilirubin 0.2 mg/dL (0.2-1.0) Direct Bilirubin 0.1 mg/dL (0.0-0.2) Aspartate Amino Transferase (AST) 20 U/L (15-37) Alanine Aminotransferase (ALT) 16 U/L (16-63) Alkaline Phosphatase 122 U/L (46-116) H Troponin I Quantitative < 0.017 ng/mL (0.000-0.055) Total Protein 7.5 g/dL (6.4-8.2) Albumin 1.4 g/dL (3.4-5.0) L Lipase 150 U/L (73-393) Glucose (Fingerstick) 212 mg/dL (70-99) H Urine Collection Type U cath Urine Color Yellow Urine Clarity Turbid Urine pH 5.5 Urine Specific [place] 1.010 Urine Protein >=300 mg/dL (NEG-TRACE) Urine Glucose (UA) 100 mg/dL (NEG) Urine Ketones (Stick) Negative mg/dL (NEG) Urine Blood Moderate (NEG) Urine Nitrite Negative (NEG) Urine Bilirubin Negative (NEG) Urine Urobilinogen Dipstick 0.2 mg/dL (0.2 mg/dL) Urine Leukocyte Esterase Large (NEG) Urine RBC Tntc /HPF (0-2) Urine WBC Tntc /HPF (0-4) Urine Squamous Epithelial Cells Occ /LPF Urine Bacteria Many /HPF (0-FEW) Urine Mucus Marked /LPF Urine Opiates Screen Neg (NEG) Urine Methadone Screen Neg (NEG) Urine Barbiturates Neg (NEG) Urine Phencyclidine Screen Neg (NEG) Urine Amphetamine/Methamphetamine Neg (NEG) Urine Benzodiazepines Screen Neg (NEG) Urine Cocaine Screen Neg (NEG) Urine Cannabinoids Screen Neg (NEG) Urine Ethyl Alcohol Neg (NEG) Laboratory Tests 05/02/17 20:45 Laboratory Tests 05/02/17 20:45 EKG EKG [] Radiology/Procedures Radiology/Procedures [] Course & Med Decision Making Course & Med Decision Making Pertinent Labs and Imaging studies reviewed. (See chart for details) [] Dragon Disclaimer Dragon Disclaimer This electronic medical record was generated, in whole or in part, using a voice recognition dictation system. Departure Departure Impression: Primary Impression: Syncope Disposition: 01 HOME, SELF-CARE Condition: STABLE Referrals: NO PCP (PCP) Patient Instructions: Syncope Additional Instructions: Thank you for allowing us to participate in your care today. Followup with your primary care physician in 3 days if your symptoms do not improve. Call your Primary Doctor tomorrow and inform them of your visit today. If you do not have a primary care provider you can ask for a list of our primary care providers. Return to the emergency department you have any new or concerning findings. This should be evaluated by the primary care physician and any necessary consulting services for continued management within a few days after discharge. Return to emergency room if you have any new or concerning symptoms including but not limited to fever, chills, nausea, vomiting, intractable pain, any new rashes, chest pain, shortness of air, uncontrolled bleeding, difficulty breathing, and/or vision loss. Scripts Nitrofurantoin Monohyd/M-Cryst (MACROBID 100 MG CAPSULE) 100 Mg Capsule 1 CAP PO BID, #10 CAP Prov: GLENIS ERAZO MD 05/02/17 Potassium Chloride (POTASSIUM CHLORIDE) 10 Meq Capsule.er 10 MEQ PO DAILY for 5 Days, #5 TAB.SR Prov: GLENIS ERAZO MD 05/02/17 GLENIS ERAZO MD May 02, 2017 21:58
[2017-05-02 21:59] LABS: BARBITURATES NEG (NEG); BENZODIAZEPINES NEG (NEG); CANNABINOIDS NEG (NEG); COCAINE NEG (NEG); METHADONE NEG (NEG); OPIATES NEG (NEG); PHENCYCLIDINE NEG (NEG)
[2017-05-02 22:00] LABS: BACTERIA,URINE MANY /HPF (0-FEW); RBC,URINE TNTC /HPF (0-2); SQUAMOUS EPITHELIAL CELL,UR OCC /LPF; WBC,URINE TNTC /HPF (0-4)
[2017-05-02] MEDS ORDERED: POTASSIUM CHLO10 MEQ PO (22:16)
[2017-05-02] MEDS ORDERED: NITR100C62 PO (22:18)
[2017-05-02 23:36] VITALS: BP 163/88
--- NOTE | 2017-05-03 07:13 | EKG ---
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
--- NOTE | 2017-05-03 08:15 | RAD ---
Portable chest, 05/02/2017: History: Worsening mental status Comparison is made to a study from 12/28/2016. The heart size is normal. There is calcific plaquing of the aorta. The pulmonary vascularity is normal. No pulmonary infiltrates are seen. There is no evidence of pleural fluid. IMPRESSION: No acute cardiopulmonary abnormality is detected.
--- NOTE | 2017-05-06 16:13 | VNOTE ---
CALL BACK NOTE CALL BACK Microbiology 05/02/17 Urine Culture - Final, Complete 05/02/17 Urine Culture Result 1 (CHICO) - Final, Complete 05/02/17 Urine Culture Result 2 (CHICO) - Final, Complete 05/02/17 Antimicrobic Susceptibility - Final, Complete Attempted to call patient at area code [phone] patient was seen here for syncopal episode and was placed on Macrobid at discharge. Patient's urine culture came back positive for 2 separate infections. The first was in enterococcus species. The second was an acinetobacter species. However the patient was placed on Macrobid which is sensitive to the first infection the patient needs to be placed on Bactrim DS1 tablet twice a day for the next 7 days to help with the second ear infection. Message was left for patient to return our call. MAGGIE KEYS APRN May 06, 2017 16:13
== END 2017-05-02 23:35 | disposition home or self-care (01) ==
LOC: ER 20:36
DX: R55 Syncope and collapse (principal); E11.9 Type 2 diabetes mellitus without complications; I10 Essential (primary) hypertension; Z89.511 Acquired absence of right leg below knee; Z91.041 Radiographic dye allergy status; Z88.6 Allergy status to analgesic agent
CPT/HCPCS: 36415; 70450; 71010; 80048; 80076; 80307; 81001; 82962; 83605; 83690; 84484; 85025; 87086; 93005; 99285-25; G0479

== ENCOUNTER 2017-05-25 09:56 | Inpatient (IN) | payer OTHER ==
[~2017-05-25] VITALS: Ht 182.9 cm; Wt 65.8 kg
[~2017-05-25 09:56] MED LIST changes: +NITR100C62 PO; +POTASSIUM CHLO10 MEQ PO
[2017-05-25] MEDS ORDERED: IV NORMAL SALINE 1000ML BAG 1,000 ML IV SCH (10:28)
--- NOTE | 2017-05-25 10:35 | PHYS DOC ---
Past Medical History Past Medical History: Diabetes-Type II, Hypertension Past Surgical History: Other Additional Past Surgical Histo: HENRRY. BKA Alcohol Use: None Drug Use: None Adult General Chief Complaint Chief Complaint: SEIZURE HPI HPI Patient is a 56 year old male who presents to the emergency department after having a reported seizure episode at home. The patient was found unresponsive in his wheelchair by his called EMS. According to EMS, the patient had a seizure episode per the though it is unclear if the patient had any convulsive activity. She reported that the patient was very confused after this episode. Patient states that he remembers being awakened in his wheelchair prior to onset of symptoms. This took place approximately 1 hour prior to arrival. The patient was alert and oriented 3 once patient was in the ambulance and states that he feels better at this time. Patient denies any complaints currently. The patient was seen in the emergency department on May 02, 2017 for a similar episode and was diagnosed with syncope at that time. Patient denies any associated chest pain. Patient has history of hypertension and type 2 diabetes mellitus. Review of Systems Review of Systems Constitutional: Denies fever or chills [] Eyes: Denies change in visual acuity, redness, or eye pain [] HENT: Denies nasal congestion or sore throat [] Respiratory: Denies cough or shortness of breath [] Cardiovascular: Denies chest pain or edema[] GI: Denies abdominal pain, nausea, vomiting, bloody stools or diarrhea [] : Denies dysuria or hematuria [] Musculoskeletal: Denies back pain or joint pain [] Integument: Denies rash or skin lesions [] Neurologic: Denies headache, focal weakness or sensory changes [] Current Medications Current Medications Current Medications Medications (Trade) Dose Ordered Sig/Akua Start Time Stop Time Status Last Admin Dose Admin Sodium Chloride 1,000 ml @ 1,000 mls/hr Q1H 05/25/17 10:28 05/25/17 11:27 DC 05/25/17 10:58 1,000 MLS/HR Allergies Allergies Allergies Coded Allergies Type Severity Reaction Last Updated Verified I S O L A T I O N *CONTACT* Allergy Unknown 12/28/16 Yes aspirin Adverse Reaction Intermediate Nausea and Vomiting, GI BLEED 12/28/16 Yes Physical Exam Physical Exam Constitutional: Alert, afebrile, no acute distress. [] HENT: Normocephalic, atraumatic, bilateral external ears normal, oropharynx moist, no oral exudates, nose normal. [] Eyes: PERRLA, EOMI, conjunctiva normal, no discharge. [] Neck: Normal range of motion, no tenderness, supple, no stridor. [] Cardiovascular:Heart rate regular rhythm, no murmur [] Lungs & Thorax: Bilateral breath sounds clear to auscultation [] Abdomen: Bowel sounds normal, soft, no tenderness, no masses, no pulsatile masses. [] Skin: Warm, dry, no erythema, no rash. [] Back: No tenderness, no CVA tenderness. [] Extremities: Bilateral BKA's, no cyanosis, ROM intact, no edema. [] Neurologic: Alert and oriented X 3, normal motor function, normal sensory function, no focal deficits noted. [] Current Patient Data Vital Signs Vital Signs Date Time Temp Pulse Resp B/P (MAP) Pulse Ox O2 Delivery O2 Flow Rate FiO2 05/25/17 12:39 69 18 199/105 (136) 99 Room Air 05/25/17 10:10 97.8 97.8 Lab Values Laboratory Tests Test 05/25/17 10:25 White Blood Count 10.0 x10^3/uL (4.0-11.0) Red Blood Count 2.80 x10^6/uL (4.30-5.70) L Hemoglobin 8.3 g/dL (13.0-17.5) L Hematocrit 24.1 % (39.0-53.0) L Mean Corpuscular Volume 86 fL (79-100) Mean Corpuscular Hemoglobin 29 pg (25-35) Mean Corpuscular Hemoglobin Concent 34 g/dL (31-37) Red Cell Distribution Width 15.1 % (11.5-14.5) H Platelet Count 239 x10^3/uL (140-400) Neutrophils (%) (Auto) 60 % (31-73) Lymphocytes (%) (Auto) 33 % (24-48) Monocytes (%) (Auto) 5 % (0-9) Eosinophils (%) (Auto) 2 % (0-3) Basophils (%) (Auto) 1 % (0-3) Neutrophils # (Auto) 6.0 x10^3uL (1.8-7.7) Lymphocytes # (Auto) 3.3 x10^3/uL (1.0-4.8) Monocytes # (Auto) 0.5 x10^3/uL (0.0-1.1) Eosinophils # (Auto) 0.2 x10^3/uL (0.0-0.7) Basophils # (Auto) 0.1 x10^3/uL (0.0-0.2) Prothrombin Time 14.7 SEC (11.7-14.0) H Prothrombin Time INR 1.2 (0.8-1.1) H PTT 35 SEC (24-38) Sodium Level 138 mmol/L (136-145) Potassium Level 3.6 mmol/L (3.5-5.1) Chloride Level 105 mmol/L (98-107) Carbon Dioxide Level 28 mmol/L (21-32) Anion Gap 5 (6-14) L Blood Urea Nitrogen 23 mg/dL (8-26) Creatinine 1.5 mg/dL (0.7-1.3) H Estimated GFR (Cockcroft-Gault) 58.4 BUN/Creatinine Ratio 15 (6-20) Glucose Level 227 mg/dL (70-99) H Calcium Level 8.5 mg/dL (8.5-10.1) Magnesium Level 1.7 mg/dL (1.8-2.4) L Total Bilirubin 0.2 mg/dL (0.2-1.0) Aspartate Amino Transferase (AST) 23 U/L (15-37) Alanine Aminotransferase (ALT) 19 U/L (16-63) Alkaline Phosphatase 121 U/L (46-116) H Creatine Kinase 49 U/L (39-308) Creatine Kinase MB (Mass) 0.6 ng/mL (0.0-3.6) Creatine Kinase MB Relative Index 1.2 % (0-4) Troponin I Quantitative < 0.017 ng/mL (0.000-0.055) Total Protein 7.8 g/dL (6.4-8.2) Albumin 1.5 g/dL (3.4-5.0) L Albumin/Globulin Ratio 0.2 (1.0-1.7) L Laboratory Tests 05/25/17 10:25 Laboratory Tests 05/25/17 10:25 EKG EKG Interpreted by me: Heart rate 69, sinus rhythm, normal intervals, normal axis, no acute ST/T-wave abnormalities present[] Radiology/Procedures Radiology/Procedures [facility] [address] [place] [address] IMAGING REPORT Signed PATIENT: CAROLYNE GRIMM ACCOUNT: [id number] : 1960 LOCATION: ER AGE: 56 SEX: M EXAM STATUS: PRE ER ORD. PHYSICIAN: JOSUE SAMANO MD REASON: syncope versus possible seizure PROCEDURE: CT HEAD WO CONTRAST CT head Indication: Possible seizure Comparison: Previous study from 05/02/2017 Technique: CT head with out IV contrast Findings: Stable mild diffuse cerebral atrophy with ex vacuo dilation of the ventricles. Confluent bilateral periventricular and deep white matter low-attenuation noted. No pathologic extra-axial or intra-axial fluid collection. No acute intracranial bleed. The basal cisterns are within normal limits. Bilateral cavernous carotid artery calcifications. No midline shift. Orbits within normal limits. No calvarial lesions. The paranasal sinuses and mastoid air cells are clear. Impression: 1. No acute intracranial process on this noncontrast CT. 2. Stable diffuse cerebral atrophy. 3. White matter changes secondary to chronic ischemic microvascular disease. PQRS Compliance Statement: One or more of the following individualized dose reduction techniques were utilized for this examination: 1. Automated exposure control 2. Adjustment of the mA and/or kV according to patient size 3. Use of iterative reconstruction technique DICTATED and SIGNED BY: SHERI PAREDES DO DATE: 05/25/17 1108 CC: JOSUE SAMANO MD; NO PCP ~ [facility] [address] [place] [address] IMAGING REPORT Signed PATIENT: CAROLYNE GRIMM ACCOUNT: [id number] : 1960 LOCATION: ER AGE: 56 SEX: M EXAM STATUS: PRE ER ORD. PHYSICIAN: JOSUE SAMANO MD REASON: possible syncope PROCEDURE: PORTABLE CHEST 1V Chest x-ray Indication: Syncope Technique: Portable AP upright chest x-ray Comparison: Previous study from 05/02/2017 Findings: Heart is slightly enlarged in size. Aortic knob calcifications noted. Lungs are clear. No pneumothorax or pleural effusion. Visualized bony thorax within normal limits. Impression: No acute cardiopulmonary process. DICTATED and SIGNED BY: SHERI PAREDES DO DATE: 05/25/17 1102 CC: JOSUE SAMANO MD; NO PCP ~ [] Course & Med Decision Making Course & Med Decision Making Pertinent Labs and Imaging studies reviewed. (See chart for details) Patient given IV fluids in the emergency department. Patient has had 2 syncopal episodes in the last month with no obtainable explanation for the cause at this time. Given patient's history of peripheral vascular disease, type 2 diabetes mellitus, and hypertension, the patient may be at risk for acute cardiac etiology for syncope. Patient will be admitted to the hospital for further evaluation and treatment. I spoke with Dr. Hope who accepted care of patient in hospital. Dragon Disclaimer Dragon Disclaimer This electronic medical record was generated, in whole or in part, using a voice recognition dictation system. Departure Departure Impression: Primary Impression: Syncope Additional Impressions: Peripheral vascular disease Uncontrolled diabetes mellitus Hypertension Chronic anemia Severe protein-calorie malnutrition Disposition: ADMITTED INPATIENT Admitting Physician: Taylor Hope Condition: STABLE Referrals: NO PCP (PCP) Problem Qualifiers Primary Impression: Syncope Syncope type: unspecified Qualified Codes: R55 - Syncope and collapse Additional Impressions: Uncontrolled diabetes mellitus Diabetes mellitus type: type 2 Diabetes mellitus complication status: with hyperglycemia Diabetes mellitus long term care pharmacist insulin use: unspecified nursing home insulin use status Qualified Codes: E11.65 - Type 2 diabetes mellitus with hyperglycemia Hypertension Hypertension type: essential hypertension Qualified Codes: I10 - Essential ( primary) hypertension JOSUE SAMANO MD May 25, 2017 10:35
--- NOTE | 2017-05-25 10:41 | EKG ---
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
[2017-05-25 10:58] LABS: BASO # 0.1 x10^3/uL (0.0-0.2); BASO % 1 % (0-3); EOS % 2 % (0-3); HEMATOCRIT 24.1 % (39.0-53.0); HEMOGLOBIN 8.3 g/dL (13.0-17.5); LYMPH # 3.3 x10^3/uL (1.0-4.8); LYMPH % 33 % (24-48); MEAN CORPUSCULAR HEMOGLOBIN 29 pg (25-35); MEAN CORPUSCULAR HGB CONC 34 g/dL (31-37); MEAN CORPUSCULAR VOLUME 86 fL (79-100); MONO % 5 % (0-9); NEUT % 60 % (31-73); PLATELET COUNT 239 x10^3/uL (140-400); RED CELL DISTRIBUTION WIDTH 15.1 % (11.5-14.5)
[2017-05-25 11:00] LABS: CALCIUM 8.5 mg/dL (8.5-10.1); CREATININE 1.5 mg/dL (0.7-1.3); GFR 58.4; POTASSIUM 3.6 mmol/L (3.5-5.1)
--- NOTE | 2017-05-25 11:05 | RAD ---
Chest x-ray Indication: Syncope Technique: Portable AP upright chest x-ray Comparison: Previous study from 05/02/2017 Findings: Heart is slightly enlarged in size. Aortic knob calcifications noted. Lungs are clear. No pneumothorax or pleural effusion. Visualized bony thorax within normal limits. Impression: No acute cardiopulmonary process.
[2017-05-25 11:06] LABS: ALBUMIN 1.5 g/dL (3.4-5.0); ALBUMIN/GLOBULIN RATIO 0.2 (1.0-1.7); MAGNESIUM 1.7 mg/dL (1.8-2.4); TOTAL BILIRUBIN 0.2 mg/dL (0.2-1.0); TOTAL PROTEIN 7.8 g/dL (6.4-8.2)
[2017-05-25 11:14] LABS: CKMB MASS 0.6 ng/mL (0.0-3.6)
--- NOTE | 2017-05-25 11:15 | RAD ---
CT head Indication: Possible seizure Comparison: Previous study from 05/02/2017 Technique: CT head with out IV contrast Findings: Stable mild diffuse cerebral atrophy with ex vacuo dilation of the ventricles. Confluent bilateral periventricular and deep white matter low-attenuation noted. No pathologic extra-axial or intra-axial fluid collection. No acute intracranial bleed. The basal cisterns are within normal limits. Bilateral cavernous carotid artery calcifications. No midline shift. Orbits within normal limits. No calvarial lesions. The paranasal sinuses and mastoid air cells are clear. Impression: 1. No acute intracranial process on this noncontrast CT. 2. Stable diffuse cerebral atrophy. 3. White matter changes secondary to chronic ischemic microvascular disease. PQRS Compliance Statement: One or more of the following individualized dose reduction techniques were utilized for this examination: 1. Automated exposure control 2. Adjustment of the mA and/or kV according to patient size 3. Use of iterative reconstruction technique
[2017-05-25 11:27] LABS: INR 1.2 (0.8-1.1); PROTHROMBIN TIME PATIENT 14.7 SEC (11.7-14.0)
[2017-05-25] MEDS ORDERED: ONDANSETRON PF 4 MG/2 ML VIAL. IV PRN (13:00)
[2017-05-25] MEDS: IV NORMAL SALINE 1000ML BAG 1,000 ML IV SCH ×2 (13:06→21:08)
[2017-05-25] MEDS ORDERED: INSU100I13 SQ (13:30)
[2017-05-25] MEDS ORDERED: INSU100I17 SQ (13:32)
[2017-05-25 13:48] LABS: BILIRUBIN,URINE NEGATIVE (NEG); GLUCOSE,URINE 250 mg/dL (NEG); NITRITE,URINE NEGATIVE (NEG); PROTEIN,URINE >=300 mg/dL (NEG-TRACE); UROBILINOGEN,URINE 0.2 mg/dL (0.2 mg/dL)
[2017-05-25 13:58] LABS: BACTERIA,URINE MANY /HPF (0-FEW); SQUAMOUS EPITHELIAL CELL,UR FEW /LPF; WBC,URINE TNTC /HPF (0-4)
[2017-05-25] MEDS ORDERED: ATORVASTATIN CA80 MG PO (14:03)
[2017-05-25] MEDS ORDERED: CLOP75TA PO (14:04)
[2017-05-25] MEDS ORDERED: METF500T4 PO (14:05)
[2017-05-25 15:00] VITALS: BP 163/95
[2017-05-25 15:09] VITALS: BP 163/95
--- NOTE | 2017-05-25 15:22 | PDOC2 ---
CARDIAC CONSULT DATE OF CONSULT Date of Consult DATE: 05/25/17 TIME: 15:04 REASON FOR CONSULT Reason for Consult: syncope REFERRING PHYSICIAN Referring Physician: Tonio SOURCE Source: Chart review, Patient HISTORY OF PRESENT ILLNESS HISTORY OF PRESENT ILLNESS This is a 56 yo male admitted for syncope and possible seizure. He was recently in ED on 05/02/2017 noted with unresponsiveness while in at home and was then noted with hypotension and apparent UTI. He had an appointment last week with his and end up in the emergency room. The and him could not exactly tell me what happened but he said the last thing he remembered is waking up in [place] [facility]. This time this morning he was transferred from bed to the by his and the went to the bathroom and when she came back he was rolling his eyes back and appeared that he was arching his back. It was unclear how long he was unresponsive but upon EMS pharmacy picking technician his diaper was wet which was just changed by his prior to transfer to . All of these syncopal spells did not result to any traumatic injury. He also has not taken any of his medications in the last 4 days since he ran out and his meds just came in the mail yesterday. Denies any presyncopal symptoms of unilateral weakness, facial tingling or droop, unilateral weakness, vertigo, dysarthria, visual or auditory disturbances. He has never had any seizures in the past but positive for CVA. Also reports no CP, palpitations, SOA and positive for HTN. In addition his hydration per volume has been adequate. PAST MEDICAL HISTORY Past Medical History Cardiovascular: HTN, moderate carotid artery disease, HLP Pulmonary: No pertinent hx CENTRAL NERVOUS SYSTEM: CVA last one noted on 11/2016, cerebral atrophy GI: GERD Heme/Onc: Anemia Hepatobiliary: No pertinent hx Psych: No pertinent hx Musculoskeletal: Osteoarthritis Rheumatologic: No pertinent hx Infectious disease: No pertinent hx ENT: No pertinent hx Renal/: urinary retention, bilateral hydronephrosis, UTI, CKD3 Endocrine: Diabetes (DM2 diagnosed 4-5 yrs ago) Dermatology: Other (coccyx wound) PAST SURGICAL HISTORY Past Surgical History Appendectomy, Arthroscopy (right hand surgery), Other (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), right hip ulcer debridement, Cystoscopy with bilateral ureteral stent placement FAMILY HISTORY Family History: Coronary Artery Disease (father) SOCIAL HISTORY Smoke: No ALCOHOL: none Drugs: None Lives: with Family CURRENT MEDICATIONS CURRENT MEDICATIONS Current Medications Medications (Trade) Dose Ordered Sig/Akua Route PRN Reason Start Time Stop Time Status Last Admin Dose Admin Sodium Chloride 1,000 ml @ 1,000 mls/hr Q1H IV 05/25/17 10:28 05/25/17 11:27 DC 05/25/17 10:58 Sodium Chloride 1,000 ml @ 150 mls/hr Q6H40M IV 05/25/17 12:59 05/26/17 12:58 05/25/17 13:06 ALLERGIES ALLERGIES: Coded Allergies: I S O L A T I O N *CONTACT* (Verified Allergy, Unknown, 12/28/16) mrsa aspirin (Verified Adverse Reaction, Intermediate, Nausea and Vomiting, GI BLEED, 12/28/16) ROS Review of System 14 point ROS evaluated with pertinent positives noted per HPI PHYSICAL EXAM General: Alert, Oriented X3, Cooperative, No acute distress HEENT: Atraumatic, Mucous membr. moist/pink Lungs: Clear to auscultation, Normal air movement Heart: Regular rate, Normal S1, Normal S2, Other (2/6 systolic murmur to LLS border) Abdomen: Soft, No tenderness Extremities: No cyanosis, No edema, Other (bilateral BKA) Skin: No breakdown, Other (wound to stump) Neuro: Normal speech, Sensation intact Psych/Mental Status: Mood NL MUSCULOSKELETAL: Osteoarthritic changes both hands, Other (bilateral BKA) VITALS VITALS Vital Signs Date Time Temp Pulse Resp B/P (MAP) Pulse Ox O2 Delivery O2 Flow Rate FiO2 05/25/17 14:51 Room Air 05/25/17 12:39 69 18 199/105 (136) 99 05/25/17 10:10 97.8 97.8 LABS Lab: Laboratory Tests Test 05/25/17 10:25 05/25/17 13:44 White Blood Count 10.0 x10^3/uL (4.0-11.0) Red Blood Count 2.80 x10^6/uL (4.30-5.70) Hemoglobin 8.3 g/dL (13.0-17.5) Hematocrit 24.1 % (39.0-53.0) Mean Corpuscular Volume 86 fL (79-100) Mean Corpuscular Hemoglobin 29 pg (25-35) Mean Corpuscular Hemoglobin Concent 34 g/dL (31-37) Red Cell Distribution Width 15.1 % (11.5-14.5) Platelet Count 239 x10^3/uL (140-400) Neutrophils (%) (Auto) 60 % (31-73) Lymphocytes (%) (Auto) 33 % (24-48) Monocytes (%) (Auto) 5 % (0-9) Eosinophils (%) (Auto) 2 % (0-3) Basophils (%) (Auto) 1 % (0-3) Neutrophils # (Auto) 6.0 x10^3uL (1.8-7.7) Lymphocytes # (Auto) 3.3 x10^3/uL (1.0-4.8) Monocytes # (Auto) 0.5 x10^3/uL (0.0-1.1) Eosinophils # (Auto) 0.2 x10^3/uL (0.0-0.7) Basophils # (Auto) 0.1 x10^3/uL (0.0-0.2) Prothrombin Time 14.7 SEC (11.7-14.0) Prothromb Time International Ratio 1.2 (0.8-1.1) Activated Partial Thromboplast Time 35 SEC (24-38) Sodium Level 138 mmol/L (136-145) Potassium Level 3.6 mmol/L (3.5-5.1) Chloride Level 105 mmol/L (98-107) Carbon Dioxide Level 28 mmol/L (21-32) Anion Gap 5 (6-14) Blood Urea Nitrogen 23 mg/dL (8-26) Creatinine 1.5 mg/dL (0.7-1.3) Estimated GFR (Cockcroft-Gault) 58.4 BUN/Creatinine Ratio 15 (6-20) Glucose Level 227 mg/dL (70-99) Calcium Level 8.5 mg/dL (8.5-10.1) Magnesium Level 1.7 mg/dL (1.8-2.4) Total Bilirubin 0.2 mg/dL (0.2-1.0) Aspartate Amino Transf (AST/SGOT) 23 U/L (15-37) Alanine Aminotransferase (ALT/SGPT) 19 U/L (16-63) Alkaline Phosphatase 121 U/L (46-116) Creatine Kinase 49 U/L (39-308) Creatine Kinase MB (Mass) 0.6 ng/mL (0.0-3.6) Creatine Kinase MB Relative Index 1.2 % (0-4) Troponin I Quantitative < 0.017 ng/mL (0.000-0.055) Total Protein 7.8 g/dL (6.4-8.2) Albumin 1.5 g/dL (3.4-5.0) Albumin/Globulin Ratio 0.2 (1.0-1.7) Urine Collection Type Unknown Urine Color Yellow Urine Clarity Cloudy Urine pH 6.0 Urine Specific [place] 1.015 Urine Protein >=300 mg/dL (NEG-TRACE) Urine Glucose (UA) 250 mg/dL (NEG) Urine Ketones (Stick) Negative mg/dL (NEG) Urine Blood Large (NEG) Urine Nitrite Negative (NEG) Urine Bilirubin Negative (NEG) Urine Urobilinogen Dipstick 0.2 mg/dL (0.2 mg/dL) Urine Leukocyte Esterase Large (NEG) Urine RBC 6-10 /HPF (0-2) Urine WBC Tntc /HPF (0-4) Urine Squamous Epithelial Cells Few /LPF Urine Bacteria Many /HPF (0-FEW) Urine Mucus Mod /LPF ECHOCARDIOGRAM ECHOCARDIOGRAM <Conclusion> There is moderate concentric left ventricular hypertrophy. Left ventricle systolic function is normal. The Ejection Fraction is 60-65%. There is normal LV segmental wall motion. The interatrial septum is intact with no evidence for an atrial septal defect or patent foramen ovale as noted on 2-D or Doppler imaging. Suboptimal agitated saline study, non-diagnostic for PFO. There is a small circumferential pericardial effusion without hemodynamic compromise is noted, stable compared to 1 year ago. DATE: 12/13/16 8143 ASSESSMENT/PLAN ASSESSMENT/PLAN 1. Suspect Seizure: likely induced by cerebral hypoperfusion as noted below 2. Syncope: suspecting orthostasis. EKG SR without acute changes. Recent TTE as noted above. 3. Accelerated HTN: due to missed BP meds, ran out of meds 4 days ago. 4. Likely persistent UTI with likely persistent urinary retention: per PCP 5. Hx of CVA: last episode 11/2016 6. DM2 with macroalbuminuria with possible nephropathy 7. CKD3 8. Hx of BPH/bilateral hydronephrosis: pt is on flomax 9. DM2/HLP. Doubt hypoglycemic episodes. Recommendations 1. Will check for orthostatic readings. IVF ongoing. 2. Will resume losartan. Monitor rhythm overnight. Hydralazine IV PRN 3. Lipid panel, TSH. Continue plavix 4. Neurology consult. Problems: CLAIRE MORFIN APRN May 25, 2017 15:22
[2017-05-25 16:00] VITALS: BP 161/76
[2017-05-25 16:05] VITALS: BP 149/77
[2017-05-25] MEDS ORDERED: DEXTROSE 50% 25 GM / 50ML DISP.SYRIN. IV PRN (18:15)
[2017-05-25] MEDS ORDERED: HYDROcodone/APAP 5/325MG 1 TAB TABLET PO PRN (18:15)
--- NOTE | 2017-05-25 19:05 | HP ---
ADMIT DATE: 05/25/2017 CHIEF COMPLAINT: Possible seizure. HISTORY OF PRESENT ILLNESS: The patient is a pleasant elderly male who has multiple issues. He had a near syncopal episode while in a wheelchair. He also became incontinent of his urine and wet his freshly changed diaper. He apparently was at the [place] recently with similar episodes. We were concerned he could be having seizures or perhaps syncopal episode secondary to arrhythmias. We are going to admit the patient and consult Neurology and Cardiology. PAST MEDICAL HISTORY: Hypertension, peripheral vascular disease, bilateral below the knee amputations, carotid disease, hyperlipidemia, stroke, cerebral atrophy, GERD, anemia, osteoarthritis, urinary retention, hydronephrosis, UTI, chronic kidney disease, diabetes, coccyx wounds. ALLERGIES: ASPIRIN. FAMILY HISTORY: Diabetes. SOCIAL HISTORY: He does not drink, smoke or take drugs. MEDICATIONS: Reviewed. REVIEW OF SYSTEMS: GENERAL: No history of weight change, weakness or fevers. SKIN: No bruising, hair changes or rashes. EYES: No blurred, double or loss of vision. NOSE AND THROAT: No history of nosebleeds, hoarseness or sore throat. HEART: No history of palpitations, chest pain or shortness of breath on exertion. LUNGS: Denies cough, hemoptysis, wheezing or shortness of breath. GASTROINTESTINAL: Denies changes in appetite, nausea, vomiting, diarrhea or constipation. GENITOURINARY: No history of frequency, urgency, hesitancy or nocturia. NEUROLOGIC: Denies history of numbness, tingling, tremor or weakness. PSYCHIATRIC: No history of panic, anxiety or depression. ENDOCRINE: No history of heat or cold intolerance, polyuria or polydipsia. EXTREMITIES: Denies muscle weakness, joint pain, pain on walking or stiffness. PHYSICAL EXAMINATION: VITAL SIGNS: Stable. GENERAL: He is alert, a little flat affect but pleasant. His is present. HEART: Normal S1, S2. LUNGS: Clear. ABDOMEN: Soft. EXTREMITIES: Lower extremities are amputated, below the knee. ENDOCRINE: No thyromegaly. LYMPHATICS: No cervical nodes. HEMATOPOIETIC: No bruising. ASSESSMENT AND PLAN: Seizures versus syncope. The patient is being admitted. We will consult Cardiology and Neurology, continue his home medicines, cardiac monitoring, PT, OT. WILLIAM CHRIS DO DR: Jennifer JOB#: [id number] / [id number]
[2017-05-25 19:47] VITALS: BP 154/78
[2017-05-25] MEDS ORDERED: PNEUMOCOCCAL VAX SCREEN BY RX. MC PRN (20:00)
[2017-05-25] MEDS ORDERED: ATORVASTATIN CALCIUM 40 MG TABLET. PO SCH (21:00)
[2017-05-25] MEDS: TAMSULOSIN 0.4 MG CAP.ER.24H. PO SCH (21:08)
[2017-05-25] MEDS: ATORVASTATIN CALCIUM 40 MG TABLET. PO SCH (21:08)
[2017-05-25] MEDS: INSULIN DETEMIR 300 UNITS/3 ML INSULN.PEN. SQ SCH (21:23)
[2017-05-25 23:55] VITALS: BP 147/77
[2017-05-26] MEDS: IV NORMAL SALINE 1000ML BAG 1,000 ML IV SCH ×2 (02:19→08:59)
[2017-05-26 03:30] VITALS: BP 148/73
[2017-05-26 04:13] LABS: BASO % 0 % (0-3); EOS % 2 % (0-3); HEMATOCRIT 23.2 % (39.0-53.0); HEMOGLOBIN 8.1 g/dL (13.0-17.5); LYMPH % 36 % (24-48); MEAN CORPUSCULAR HEMOGLOBIN 30 pg (25-35); MEAN CORPUSCULAR HGB CONC 35 g/dL (31-37); MEAN CORPUSCULAR VOLUME 85 fL (79-100); MONO % 6 % (0-9); NEUT % 56 % (31-73); PLATELET COUNT 199 x10^3/uL (140-400); RED BLOOD COUNT 2.73 x10^6/uL (4.30-5.70); RED CELL DISTRIBUTION WIDTH 14.9 % (11.5-14.5); WHITE BLOOD COUNT 8.2 x10^3/uL (4.0-11.0)
[2017-05-26 04:23] LABS: CREATININE 1.4 mg/dL (0.7-1.3); GFR 63.2; POTASSIUM 3.2 mmol/L (3.5-5.1)
[2017-05-26 04:40] LABS: CHOLESTEROL/HDL RATIO 9.1
[2017-05-26] MEDS: INSULIN ASPART 300 UNITS/3 ML INSULN.PEN SQ SCH ×3 (08:00→17:58)
[2017-05-26] MEDS ORDERED: POTASSIUM CHLORIDE 20 MEQ TABLET.ER. PO ONE (08:15)
--- NOTE | 2017-05-26 09:37 | PDOC ---
PROGRESS NOTES Chief Complaint Chief Complaint Seizure Syncope PMH: HTN PVD Bilateral BKA Carotid disease Hyperlipidemia Stroke Cerebral atrophy GERD Anemia OA Hydronephrosis UTIs DM CKD History of Present Illness History of Present Illness Pt was laying in bed and conversant. He has no new complaints and appears to be in NAD. Discussed plan of care with him including awaiting cardiology workup. Lipid panel - all values elevated, HDL low U/A - +LE, WBC TNTC, many bacteria - started on cipro Cardiology - seizure secondary to arrhythmias -syncope secondary to orthostatic hypotension -lipid panel, check TSH -consult Neuro Vitals Vitals Vital Signs Date Time Temp Pulse Resp B/P (MAP) Pulse Ox O2 Delivery O2 Flow Rate FiO2 05/26/17 03:30 98.8 70 20 148/73 (98) 98 Room Air 98.8 Physical Exam General: Alert, Oriented X3, Cooperative, No acute distress Heart: Regular rate, Normal S1, Normal S2, Other (2/6 systolic murmur to LLS border) Lungs: Clear Abdomen: Soft, No tenderness Extremities: No cyanosis, No edema, Other (bilateral BKA) Skin: No breakdown, Other (wound to stump) Labs LABS Laboratory Tests Test 05/25/17 10:25 05/25/17 13:44 05/25/17 14:25 05/25/17 16:47 White Blood Count 10.0 x10^3/uL (4.0-11.0) Red Blood Count 2.80 x10^6/uL (4.30-5.70) Hemoglobin 8.3 g/dL (13.0-17.5) Hematocrit 24.1 % (39.0-53.0) Mean Corpuscular Volume 86 fL (79-100) Mean Corpuscular Hemoglobin 29 pg (25-35) Mean Corpuscular Hemoglobin Concent 34 g/dL (31-37) Red Cell Distribution Width 15.1 % (11.5-14.5) Platelet Count 239 x10^3/uL (140-400) Neutrophils (%) (Auto) 60 % (31-73) Lymphocytes (%) (Auto) 33 % (24-48) Monocytes (%) (Auto) 5 % (0-9) Eosinophils (%) (Auto) 2 % (0-3) Basophils (%) (Auto) 1 % (0-3) Neutrophils # (Auto) 6.0 x10^3uL (1.8-7.7) Lymphocytes # (Auto) 3.3 x10^3/uL (1.0-4.8) Monocytes # (Auto) 0.5 x10^3/uL (0.0-1.1) Eosinophils # (Auto) 0.2 x10^3/uL (0.0-0.7) Basophils # (Auto) 0.1 x10^3/uL (0.0-0.2) Prothrombin Time 14.7 SEC (11.7-14.0) Prothromb Time International Ratio 1.2 (0.8-1.1) Activated Partial Thromboplast Time 35 SEC (24-38) Sodium Level 138 mmol/L (136-145) Potassium Level 3.6 mmol/L (3.5-5.1) Chloride Level 105 mmol/L (98-107) Carbon Dioxide Level 28 mmol/L (21-32) Anion Gap 5 (6-14) Blood Urea Nitrogen 23 mg/dL (8-26) Creatinine 1.5 mg/dL (0.7-1.3) Estimated GFR (Cockcroft-Gault) 58.4 BUN/Creatinine Ratio 15 (6-20) Glucose Level 227 mg/dL (70-99) Calcium Level 8.5 mg/dL (8.5-10.1) Magnesium Level 1.7 mg/dL (1.8-2.4) Total Bilirubin 0.2 mg/dL (0.2-1.0) Aspartate Amino Transf (AST/SGOT) 23 U/L (15-37) Alanine Aminotransferase (ALT/SGPT) 19 U/L (16-63) Alkaline Phosphatase 121 U/L (46-116) Creatine Kinase 49 U/L (39-308) Creatine Kinase MB (Mass) 0.6 ng/mL (0.0-3.6) Creatine Kinase MB Relative Index 1.2 % (0-4) Troponin I Quantitative < 0.017 ng/mL (0.000-0.055) Total Protein 7.8 g/dL (6.4-8.2) Albumin 1.5 g/dL (3.4-5.0) Albumin/Globulin Ratio 0.2 (1.0-1.7) Thyroid Stimulating Hormone (TSH) 1.711 uIU/mL (0.358-3.74) Urine Collection Type Unknown Urine Color Yellow Urine Clarity Cloudy Urine pH 6.0 Urine Specific [place] 1.015 Urine Protein >=300 mg/dL (NEG-TRACE) Urine Glucose (UA) 250 mg/dL (NEG) Urine Ketones (Stick) Negative mg/dL (NEG) Urine Blood Large (NEG) Urine Nitrite Negative (NEG) Urine Bilirubin Negative (NEG) Urine Urobilinogen Dipstick 0.2 mg/dL (0.2 mg/dL) Urine Leukocyte Esterase Large (NEG) Urine RBC 6-10 /HPF (0-2) Urine WBC Tntc /HPF (0-4) Urine Squamous Epithelial Cells Few /LPF Urine Bacteria Many /HPF (0-FEW) Urine Mucus Mod /LPF Nasal Screen MRSA (PCR) Positive (Negative) Glucose (Fingerstick) 280 mg/dL (70-99) Test 05/25/17 21:20 05/26/17 03:40 Glucose (Fingerstick) 324 mg/dL (70-99) White Blood Count 8.2 x10^3/uL (4.0-11.0) Red Blood Count 2.73 x10^6/uL (4.30-5.70) Hemoglobin 8.1 g/dL (13.0-17.5) Hematocrit 23.2 % (39.0-53.0) Mean Corpuscular Volume 85 fL (79-100) Mean Corpuscular Hemoglobin 30 pg (25-35) Mean Corpuscular Hemoglobin Concent 35 g/dL (31-37) Red Cell Distribution Width 14.9 % (11.5-14.5) Platelet Count 199 x10^3/uL (140-400) Neutrophils (%) (Auto) 56 % (31-73) Lymphocytes (%) (Auto) 36 % (24-48) Monocytes (%) (Auto) 6 % (0-9) Eosinophils (%) (Auto) 2 % (0-3) Basophils (%) (Auto) 0 % (0-3) Neutrophils # (Auto) 4.6 x10^3uL (1.8-7.7) Lymphocytes # (Auto) 3.0 x10^3/uL (1.0-4.8) Monocytes # (Auto) 0.5 x10^3/uL (0.0-1.1) Eosinophils # (Auto) 0.1 x10^3/uL (0.0-0.7) Basophils # (Auto) 0.0 x10^3/uL (0.0-0.2) Sodium Level 139 mmol/L (136-145) Potassium Level 3.2 mmol/L (3.5-5.1) Chloride Level 106 mmol/L (98-107) Carbon Dioxide Level 28 mmol/L (21-32) Anion Gap 5 (6-14) Blood Urea Nitrogen 25 mg/dL (8-26) Creatinine 1.4 mg/dL (0.7-1.3) Estimated GFR (Cockcroft-Gault) 63.2 Glucose Level 251 mg/dL (70-99) Calcium Level 8.0 mg/dL (8.5-10.1) Triglycerides Level 214 mg/dL (0-150) Cholesterol Level 263 mg/dL (0-200) LDL Cholesterol, Calculated 191 mg/dL (0-100) VLDL Cholesterol, Calculated 43 mg/dL (0-40) Non-HDL Cholesterol Calculated 234 mg/dL (0-129) HDL Cholesterol 29 mg/dL (40-60) Cholesterol/HDL Ratio 9.1 Review of Systems Review of Systems Pt complains of gnawing pain in sacral region Pt complains of fatigue Pt complains fo hunger Assessment and Plan Assessmemt and Plan Problems Medical Problems: (1) Chronic anemia Status: Acute (2) Hypertension Status: Acute (3) Peripheral vascular disease Status: Acute (4) Severe protein-calorie malnutrition Status: Acute (5) Syncope Status: Acute (6) Uncontrolled diabetes mellitus Status: Acute Seizure Syncope PMH: HTN PVD Bilateral BKA Carotid disease Hyperlipidemia Stroke Cerebral atrophy GERD Anemia OA Hydronephrosis UTIs DM CKD Plan: Ordered Potassium Consulted Dr. Lambert with Nephrology Started Cipro 400 mg BID for possible UTI Recheck labs PT/OT Cont. to monitor Awaiting cardiology and neurology workup Problems: Comment Review of Relevant I have reviewed the following items yobani (where applicable) has been applied. Labs Laboratory Tests Test 05/25/17 10:25 05/25/17 13:44 05/25/17 14:25 05/25/17 16:47 White Blood Count 10.0 x10^3/uL (4.0-11.0) Red Blood Count 2.80 x10^6/uL (4.30-5.70) Hemoglobin 8.3 g/dL (13.0-17.5) Hematocrit 24.1 % (39.0-53.0) Mean Corpuscular Volume 86 fL (79-100) Mean Corpuscular Hemoglobin 29 pg (25-35) Mean Corpuscular Hemoglobin Concent 34 g/dL (31-37) Red Cell Distribution Width 15.1 % (11.5-14.5) Platelet Count 239 x10^3/uL (140-400) Neutrophils (%) (Auto) 60 % (31-73) Lymphocytes (%) (Auto) 33 % (24-48) Monocytes (%) (Auto) 5 % (0-9) Eosinophils (%) (Auto) 2 % (0-3) Basophils (%) (Auto) 1 % (0-3) Neutrophils # (Auto) 6.0 x10^3uL (1.8-7.7) Lymphocytes # (Auto) 3.3 x10^3/uL (1.0-4.8) Monocytes # (Auto) 0.5 x10^3/uL (0.0-1.1) Eosinophils # (Auto) 0.2 x10^3/uL (0.0-0.7) Basophils # (Auto) 0.1 x10^3/uL (0.0-0.2) Prothrombin Time 14.7 SEC (11.7-14.0) Prothromb Time International Ratio 1.2 (0.8-1.1) Activated Partial Thromboplast Time 35 SEC (24-38) Sodium Level 138 mmol/L (136-145) Potassium Level 3.6 mmol/L (3.5-5.1) Chloride Level 105 mmol/L (98-107) Carbon Dioxide Level 28 mmol/L (21-32) Anion Gap 5 (6-14) Blood Urea Nitrogen 23 mg/dL (8-26) Creatinine 1.5 mg/dL (0.7-1.3) Estimated GFR (Cockcroft-Gault) 58.4 BUN/Creatinine Ratio 15 (6-20) Glucose Level 227 mg/dL (70-99) Calcium Level 8.5 mg/dL (8.5-10.1) Magnesium Level 1.7 mg/dL (1.8-2.4) Total Bilirubin 0.2 mg/dL (0.2-1.0) Aspartate Amino Transf (AST/SGOT) 23 U/L (15-37) Alanine Aminotransferase (ALT/SGPT) 19 U/L (16-63) Alkaline Phosphatase 121 U/L (46-116) Creatine Kinase 49 U/L (39-308) Creatine Kinase MB (Mass) 0.6 ng/mL (0.0-3.6) Creatine Kinase MB Relative Index 1.2 % (0-4) Troponin I Quantitative < 0.017 ng/mL (0.000-0.055) Total Protein 7.8 g/dL (6.4-8.2) Albumin 1.5 g/dL (3.4-5.0) Albumin/Globulin Ratio 0.2 (1.0-1.7) Thyroid Stimulating Hormone (TSH) 1.711 uIU/mL (0.358-3.74) Urine Collection Type Unknown Urine Color Yellow Urine Clarity Cloudy Urine pH 6.0 Urine Specific [place] 1.015 Urine Protein >=300 mg/dL (NEG-TRACE) Urine Glucose (UA) 250 mg/dL (NEG) Urine Ketones (Stick) Negative mg/dL (NEG) Urine Blood Large (NEG) Urine Nitrite Negative (NEG) Urine Bilirubin Negative (NEG) Urine Urobilinogen Dipstick 0.2 mg/dL (0.2 mg/dL) Urine Leukocyte Esterase Large (NEG) Urine RBC 6-10 /HPF (0-2) Urine WBC Tntc /HPF (0-4) Urine Squamous Epithelial Cells Few /LPF Urine Bacteria Many /HPF (0-FEW) Urine Mucus Mod /LPF Nasal Screen MRSA (PCR) Positive (Negative) Glucose (Fingerstick) 280 mg/dL (70-99) Test 05/25/17 21:20 05/26/17 03:40 Glucose (Fingerstick) 324 mg/dL (70-99) White Blood Count 8.2 x10^3/uL (4.0-11.0) Red Blood Count 2.73 x10^6/uL (4.30-5.70) Hemoglobin 8.1 g/dL (13.0-17.5) Hematocrit 23.2 % (39.0-53.0) Mean Corpuscular Volume 85 fL (79-100) Mean Corpuscular Hemoglobin 30 pg (25-35) Mean Corpuscular Hemoglobin Concent 35 g/dL (31-37) Red Cell Distribution Width 14.9 % (11.5-14.5) Platelet Count 199 x10^3/uL (140-400) Neutrophils (%) (Auto) 56 % (31-73) Lymphocytes (%) (Auto) 36 % (24-48) Monocytes (%) (Auto) 6 % (0-9) Eosinophils (%) (Auto) 2 % (0-3) Basophils (%) (Auto) 0 % (0-3) Neutrophils # (Auto) 4.6 x10^3uL (1.8-7.7) Lymphocytes # (Auto) 3.0 x10^3/uL (1.0-4.8) Monocytes # (Auto) 0.5 x10^3/uL (0.0-1.1) Eosinophils # (Auto) 0.1 x10^3/uL (0.0-0.7) Basophils # (Auto) 0.0 x10^3/uL (0.0-0.2) Sodium Level 139 mmol/L (136-145) Potassium Level 3.2 mmol/L (3.5-5.1) Chloride Level 106 mmol/L (98-107) Carbon Dioxide Level 28 mmol/L (21-32) Anion Gap 5 (6-14) Blood Urea Nitrogen 25 mg/dL (8-26) Creatinine 1.4 mg/dL (0.7-1.3) Estimated GFR (Cockcroft-Gault) 63.2 Glucose Level 251 mg/dL (70-99) Calcium Level 8.0 mg/dL (8.5-10.1) Triglycerides Level 214 mg/dL (0-150) Cholesterol Level 263 mg/dL (0-200) LDL Cholesterol, Calculated 191 mg/dL (0-100) VLDL Cholesterol, Calculated 43 mg/dL (0-40) Non-HDL Cholesterol Calculated 234 mg/dL (0-129) HDL Cholesterol 29 mg/dL (40-60) Cholesterol/HDL Ratio 9.1 Laboratory Tests Test 05/25/17 10:25 05/25/17 13:44 05/25/17 14:25 05/25/17 16:47 White Blood Count 10.0 x10^3/uL (4.0-11.0) Red Blood Count 2.80 x10^6/uL (4.30-5.70) Hemoglobin 8.3 g/dL (13.0-17.5) Hematocrit 24.1 % (39.0-53.0) Mean Corpuscular Volume 86 fL (79-100) Mean Corpuscular Hemoglobin 29 pg (25-35) Mean Corpuscular Hemoglobin Concent 34 g/dL (31-37) Red Cell Distribution Width 15.1 % (11.5-14.5) Platelet Count 239 x10^3/uL (140-400) Neutrophils (%) (Auto) 60 % (31-73) Lymphocytes (%) (Auto) 33 % (24-48) Monocytes (%) (Auto) 5 % (0-9) Eosinophils (%) (Auto) 2 % (0-3) Basophils (%) (Auto) 1 % (0-3) Neutrophils # (Auto) 6.0 x10^3uL (1.8-7.7) Lymphocytes # (Auto) 3.3 x10^3/uL (1.0-4.8) Monocytes # (Auto) 0.5 x10^3/uL (0.0-1.1) Eosinophils # (Auto) 0.2 x10^3/uL (0.0-0.7) Basophils # (Auto) 0.1 x10^3/uL (0.0-0.2) Prothrombin Time 14.7 SEC (11.7-14.0) Prothromb Time International Ratio 1.2 (0.8-1.1) Activated Partial Thromboplast Time 35 SEC (24-38) Sodium Level 138 mmol/L (136-145) Potassium Level 3.6 mmol/L (3.5-5.1) Chloride Level 105 mmol/L (98-107) Carbon Dioxide Level 28 mmol/L (21-32) Anion Gap 5 (6-14) Blood Urea Nitrogen 23 mg/dL (8-26) Creatinine 1.5 mg/dL (0.7-1.3) Estimated GFR (Cockcroft-Gault) 58.4 BUN/Creatinine Ratio 15 (6-20) Glucose Level 227 mg/dL (70-99) Calcium Level 8.5 mg/dL (8.5-10.1) Magnesium Level 1.7 mg/dL (1.8-2.4) Total Bilirubin 0.2 mg/dL (0.2-1.0) Aspartate Amino Transf (AST/SGOT) 23 U/L (15-37) Alanine Aminotransferase (ALT/SGPT) 19 U/L (16-63) Alkaline Phosphatase 121 U/L (46-116) Creatine Kinase 49 U/L (39-308) Creatine Kinase MB (Mass) 0.6 ng/mL (0.0-3.6) Creatine Kinase MB Relative Index 1.2 % (0-4) Troponin I Quantitative < 0.017 ng/mL (0.000-0.055) Total Protein 7.8 g/dL (6.4-8.2) Albumin 1.5 g/dL (3.4-5.0) Albumin/Globulin Ratio 0.2 (1.0-1.7) Thyroid Stimulating Hormone (TSH) 1.711 uIU/mL (0.358-3.74) Urine Collection Type Unknown Urine Color Yellow Urine Clarity Cloudy Urine pH 6.0 Urine Specific [place] 1.015 Urine Protein >=300 mg/dL (NEG-TRACE) Urine Glucose (UA) 250 mg/dL (NEG) Urine Ketones (Stick) Negative mg/dL (NEG) Urine Blood Large (NEG) Urine Nitrite Negative (NEG) Urine Bilirubin Negative (NEG) Urine Urobilinogen Dipstick 0.2 mg/dL (0.2 mg/dL) Urine Leukocyte Esterase Large (NEG) Urine RBC 6-10 /HPF (0-2) Urine WBC Tntc /HPF (0-4) Urine Squamous Epithelial Cells Few /LPF Urine Bacteria Many /HPF (0-FEW) Urine Mucus Mod /LPF Nasal Screen MRSA (PCR) Positive (Negative) Glucose (Fingerstick) 280 mg/dL (70-99) Test 05/25/17 21:20 05/26/17 03:40 Glucose (Fingerstick) 324 mg/dL (70-99) White Blood Count 8.2 x10^3/uL (4.0-11.0) Red Blood Count 2.73 x10^6/uL (4.30-5.70) Hemoglobin 8.1 g/dL (13.0-17.5) Hematocrit 23.2 % (39.0-53.0) Mean Corpuscular Volume 85 fL (79-100) Mean Corpuscular Hemoglobin 30 pg (25-35) Mean Corpuscular Hemoglobin Concent 35 g/dL (31-37) Red Cell Distribution Width 14.9 % (11.5-14.5) Platelet Count 199 x10^3/uL (140-400) Neutrophils (%) (Auto) 56 % (31-73) Lymphocytes (%) (Auto) 36 % (24-48) Monocytes (%) (Auto) 6 % (0-9) Eosinophils (%) (Auto) 2 % (0-3) Basophils (%) (Auto) 0 % (0-3) Neutrophils # (Auto) 4.6 x10^3uL (1.8-7.7) Lymphocytes # (Auto) 3.0 x10^3/uL (1.0-4.8) Monocytes # (Auto) 0.5 x10^3/uL (0.0-1.1) Eosinophils # (Auto) 0.1 x10^3/uL (0.0-0.7) Basophils # (Auto) 0.0 x10^3/uL (0.0-0.2) Sodium Level 139 mmol/L (136-145) Potassium Level 3.2 mmol/L (3.5-5.1) Chloride Level 106 mmol/L (98-107) Carbon Dioxide Level 28 mmol/L (21-32) Anion Gap 5 (6-14) Blood Urea Nitrogen 25 mg/dL (8-26) Creatinine 1.4 mg/dL (0.7-1.3) Estimated GFR (Cockcroft-Gault) 63.2 Glucose Level 251 mg/dL (70-99) Calcium Level 8.0 mg/dL (8.5-10.1) Triglycerides Level 214 mg/dL (0-150) Cholesterol Level 263 mg/dL (0-200) LDL Cholesterol, Calculated 191 mg/dL (0-100) VLDL Cholesterol, Calculated 43 mg/dL (0-40) Non-HDL Cholesterol Calculated 234 mg/dL (0-129) HDL Cholesterol 29 mg/dL (40-60) Cholesterol/HDL Ratio 9.1 Medications Current Medications Sodium Chloride 1,000 ml @ 1,000 mls/hr Q1H IV Last administered on 05/25/17 10:58; Start 05/25/17 at 10:28; Stop 05/25/17 at 11:27; Status DC Ondansetron HCl (Zofran) 4 mg PRN Q8HRS PRN IV NAUSEA/VOMITING; Start 05/25/17 at 13:00; Stop 05/26/17 at 12:59 Sodium Chloride 1,000 ml @ 150 mls/hr Q6H40M IV Last administered on 21:08; Start 05/25/17 at 12:59; Stop 05/26/17 at 12:58 Pneumococcal Polyvalent Vaccine (Do NOT chart on this placeholder) 1 each PRN DAILY PRN MC PER PROTOCOL; Start 05/25/17 at 20:00 Losartan Potassium (Cozaar) 50 mg DAILY PO ; Start 05/26/17 at 09:00 Clopidogrel Bisulfate (Plavix) 75 mg DAILY PO ; Start 05/26/17 at 09:00 Atorvastatin Calcium (Lipitor) 40 mg QHS PO ; Start 05/25/17 at 21:00; Status Cancel Tamsulosin HCl (Flomax) 0.4 mg QHS PO Last administered on 05/25/17 21:08; Start 05/25/17 at 21:00 Acetaminophen/ Hydrocodone Bitart (Lortab 5/325) 1 tab PRN Q6HRS PRN PO PAIN; Start 05/25/17 at 18:15 Atorvastatin Calcium (Lipitor) 40 mg QHS PO Last administered on 05/25/17 21: 08; Start 05/25/17 at 21:00 Insulin Detemir (Levemir) 28 units QHS SQ Last administered on 05/25/17 21:23 ; Start 05/25/17 at 21:00 Insulin Aspart (NovoLOG) 0-5 UNITS TIDWMEALS SQ ; Start 05/26/17 at 08:00 Dextrose (Dextrose 50%-Water Syringe) 12.5 gm PRN Q15MIN PRN IV SEE COMMENTS; Start 05/25/17 at 18:15 Potassium Chloride (Klor-Con) 40 meq 1X ONCE PO ; Start 05/26/17 at 08:15; Stop 05/26/17 at 08:24; Status DC Active Scripts Active Reported Metformin Hcl 500 Mg Tablet 500 Mg PO BIDWMEALS Clopidogrel (Clopidogrel Bisulfate) 75 Mg Tablet 75 Mg PO DAILY Atorvastatin Calcium 80 Mg Tablet 0.5 Tab PO DAILY Novolog Flexpen (Insulin Aspart) 100 Unit/1 Ml Insuln.pen 10 Unit SQ TIDAC Lantus Solostar (Insulin Glargine,Hum.rec.anlog) 100 Unit/1 Ml Insuln.pen 28 Unit SQ QHS Hydrocodone-Apap 5-325 (Hydrocodone Bit/Acetaminophen) 1 Each Tablet 1 Tab PO PRN Q6HRS PRN Vitals/I & O Vital Sign - Last 24 Hours 05/25/17 05/25/17 05/25/17 05/25/17 10:10 10:59 12:39 14:51 Temp 97.8 97.8 Pulse 79 68 69 Resp 18 19 18 B/P (MAP) 160/82 (108) 168/88 (114) 199/105 (136) Pulse Ox 98 100 99 O2 Delivery Room Air Room Air Room Air Room Air 05/25/17 05/25/17 05/25/17 05/25/17 15:00 15:09 16:00 16:05 Temp 98.0 98.0 98.0 98.0 Pulse 75 75 66 69 Resp 20 20 B/P (MAP) 163/95 (117) 163/95 (117) 161/76 (104) 149/77 (101) Pulse Ox 100 100 O2 Delivery Room Air Room Air 05/25/17 05/25/17 05/25/17 05/26/17 19:47 20:08 23:55 03:30 Temp 97.9 99.0 98.8 97.9 99.0 98.8 Pulse 69 74 70 Resp 20 20 20 B/P (MAP) 154/78 (103) 147/77 (100) 148/73 (98) Pulse Ox 98 99 98 O2 Delivery Room Air Room Air Room Air Room Air WILLIAM CHRIS III DO May 26, 2017 09:36
[2017-05-26] MEDS: CLOPIDOGREL BISULFATE 75 MG TABLET PO SCH (09:46)
[2017-05-26] MEDS: LOSARTAN POTASSIUM 50 MG TABLET. PO SCH (09:46)
--- NOTE | 2017-05-26 09:47 | PDOC ---
SAUD [employer]ARC[employer] 05/26/17 0947: CARDIO Progress Notes Date and Time Date of Service 05/26/17 Time of Evaluation 1015 Subjective Subjective: No Chest Pain, No shortness of breath, No Palpitations Vitals Vitals Vital Signs Date Time Temp Pulse Resp B/P (MAP) Pulse Ox O2 Delivery O2 Flow Rate FiO2 05/26/17 03:30 98.8 70 20 148/73 (98) 98 Room Air 98.8 Weight Weight [ ] Laboratory Labs Laboratory Tests Test 05/25/17 10:25 05/25/17 13:44 05/25/17 14:25 05/25/17 16:47 White Blood Count 10.0 x10^3/uL (4.0-11.0) Red Blood Count 2.80 x10^6/uL (4.30-5.70) Hemoglobin 8.3 g/dL (13.0-17.5) Hematocrit 24.1 % (39.0-53.0) Mean Corpuscular Volume 86 fL (79-100) Mean Corpuscular Hemoglobin 29 pg (25-35) Mean Corpuscular Hemoglobin Concent 34 g/dL (31-37) Red Cell Distribution Width 15.1 % (11.5-14.5) Platelet Count 239 x10^3/uL (140-400) Neutrophils (%) (Auto) 60 % (31-73) Lymphocytes (%) (Auto) 33 % (24-48) Monocytes (%) (Auto) 5 % (0-9) Eosinophils (%) (Auto) 2 % (0-3) Basophils (%) (Auto) 1 % (0-3) Neutrophils # (Auto) 6.0 x10^3uL (1.8-7.7) Lymphocytes # (Auto) 3.3 x10^3/uL (1.0-4.8) Monocytes # (Auto) 0.5 x10^3/uL (0.0-1.1) Eosinophils # (Auto) 0.2 x10^3/uL (0.0-0.7) Basophils # (Auto) 0.1 x10^3/uL (0.0-0.2) Prothrombin Time 14.7 SEC (11.7-14.0) Prothromb Time International Ratio 1.2 (0.8-1.1) Activated Partial Thromboplast Time 35 SEC (24-38) Sodium Level 138 mmol/L (136-145) Potassium Level 3.6 mmol/L (3.5-5.1) Chloride Level 105 mmol/L (98-107) Carbon Dioxide Level 28 mmol/L (21-32) Anion Gap 5 (6-14) Blood Urea Nitrogen 23 mg/dL (8-26) Creatinine 1.5 mg/dL (0.7-1.3) Estimated GFR (Cockcroft-Gault) 58.4 BUN/Creatinine Ratio 15 (6-20) Glucose Level 227 mg/dL (70-99) Calcium Level 8.5 mg/dL (8.5-10.1) Magnesium Level 1.7 mg/dL (1.8-2.4) Total Bilirubin 0.2 mg/dL (0.2-1.0) Aspartate Amino Transf (AST/SGOT) 23 U/L (15-37) Alanine Aminotransferase (ALT/SGPT) 19 U/L (16-63) Alkaline Phosphatase 121 U/L (46-116) Creatine Kinase 49 U/L (39-308) Creatine Kinase MB (Mass) 0.6 ng/mL (0.0-3.6) Creatine Kinase MB Relative Index 1.2 % (0-4) Troponin I Quantitative < 0.017 ng/mL (0.000-0.055) Total Protein 7.8 g/dL (6.4-8.2) Albumin 1.5 g/dL (3.4-5.0) Albumin/Globulin Ratio 0.2 (1.0-1.7) Thyroid Stimulating Hormone (TSH) 1.711 uIU/mL (0.358-3.74) Urine Collection Type Unknown Urine Color Yellow Urine Clarity Cloudy Urine pH 6.0 Urine Specific [place] 1.015 Urine Protein >=300 mg/dL (NEG-TRACE) Urine Glucose (UA) 250 mg/dL (NEG) Urine Ketones (Stick) Negative mg/dL (NEG) Urine Blood Large (NEG) Urine Nitrite Negative (NEG) Urine Bilirubin Negative (NEG) Urine Urobilinogen Dipstick 0.2 mg/dL (0.2 mg/dL) Urine Leukocyte Esterase Large (NEG) Urine RBC 6-10 /HPF (0-2) Urine WBC Tntc /HPF (0-4) Urine Squamous Epithelial Cells Few /LPF Urine Bacteria Many /HPF (0-FEW) Urine Mucus Mod /LPF Nasal Screen MRSA (PCR) Positive (Negative) Glucose (Fingerstick) 280 mg/dL (70-99) Test 05/25/17 21:20 05/26/17 03:40 Glucose (Fingerstick) 324 mg/dL (70-99) White Blood Count 8.2 x10^3/uL (4.0-11.0) Red Blood Count 2.73 x10^6/uL (4.30-5.70) Hemoglobin 8.1 g/dL (13.0-17.5) Hematocrit 23.2 % (39.0-53.0) Mean Corpuscular Volume 85 fL (79-100) Mean Corpuscular Hemoglobin 30 pg (25-35) Mean Corpuscular Hemoglobin Concent 35 g/dL (31-37) Red Cell Distribution Width 14.9 % (11.5-14.5) Platelet Count 199 x10^3/uL (140-400) Neutrophils (%) (Auto) 56 % (31-73) Lymphocytes (%) (Auto) 36 % (24-48) Monocytes (%) (Auto) 6 % (0-9) Eosinophils (%) (Auto) 2 % (0-3) Basophils (%) (Auto) 0 % (0-3) Neutrophils # (Auto) 4.6 x10^3uL (1.8-7.7) Lymphocytes # (Auto) 3.0 x10^3/uL (1.0-4.8) Monocytes # (Auto) 0.5 x10^3/uL (0.0-1.1) Eosinophils # (Auto) 0.1 x10^3/uL (0.0-0.7) Basophils # (Auto) 0.0 x10^3/uL (0.0-0.2) Sodium Level 139 mmol/L (136-145) Potassium Level 3.2 mmol/L (3.5-5.1) Chloride Level 106 mmol/L (98-107) Carbon Dioxide Level 28 mmol/L (21-32) Anion Gap 5 (6-14) Blood Urea Nitrogen 25 mg/dL (8-26) Creatinine 1.4 mg/dL (0.7-1.3) Estimated GFR (Cockcroft-Gault) 63.2 Glucose Level 251 mg/dL (70-99) Calcium Level 8.0 mg/dL (8.5-10.1) Triglycerides Level 214 mg/dL (0-150) Cholesterol Level 263 mg/dL (0-200) LDL Cholesterol, Calculated 191 mg/dL (0-100) VLDL Cholesterol, Calculated 43 mg/dL (0-40) Non-HDL Cholesterol Calculated 234 mg/dL (0-129) HDL Cholesterol 29 mg/dL (40-60) Cholesterol/HDL Ratio 9.1 Physical Exam HEENT: Neck Supple W Full Motion Chest: Symmetric LUNGS: Clear to Auscultation Heart: S1S2, RRR, murmurs (2/6 systolic murmur ) Abdomen: Soft N/T Extremities: No Edema, Other (bilateral BKA, 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 Possible seizure; EEG pending. As per neuro 2. Syncope; EKG shows SR without acute changes. No acute events noted on telemetry. Orthostatic VS without significant changes from lying to sitting. Echo with preserved LV function. No WMA or septal defect documented. Consider event monitor at discharge. 3. Accelerated HTN; better controlled with resumption of antiHTN therapy. 4. CKD; Cr near baseline 5. Diabetes, II; as per PCP 6. Hyperlipidemia; LDL 191. statin 7. Hx of CVA: last episode 11/2016 8. Hypokalemia/ hypomagnesemia; replace. Monitor lytes. SABINO CASTRO MD 05/26/17 1305: CARDIO Progress Notes Assessment Assessment Patient seen and examined Patient improved today. Rhythm stable overnight. Monitoring electrolytes. Will review test results when available. Gradually increase activities as tolerated. SAUD GARCIA APRN May 26, 2017 09:47 SABINO CASTRO MD May 26, 2017 16:45
[2017-05-26] MEDS ORDERED: GADOBUTROL 7.5 MMOL/7.5 ML VIAL IV ONE (11:30)
--- NOTE | 2017-05-26 11:46 | CARD ---
APPROVED REPORT EXAM: Two-dimensional and M-mode echocardiogram with Doppler, color Doppler with contrast. Other Information Quality : Average Rhythm : NSR INDICATION Pericardial Effusion Syncope Echo Enhancing Agent Indication: Rule Out Septal Defect Agent/Amount Used: Agitated Saline 16mL 2D DIMENSIONS RVDd2.7 (2.9-3.5cm)Left Atrium(2D)3.0 (1.6-4.0cm) IVSd2.3 (0.7-1.1cm)Aortic Root(2D)3.0 (2.0-3.7cm) LVDd2.7 (3.9-5.9cm)LVOT Diameter2.1 (1.8-2.4cm) PWd2.1 (0.7-1.1cm)LVDs2.2 (2.5-4.0cm) FS (%) 30.7 %SV12.3 ml LVEF(%)53.9 (>50%) Aortic Valve AoV Peak Cesar.137.9cm/sAoV VTI29.9cm AO Peak GR.7.6mmHgLVOT Peak Cesar.126.6cm/s AO Mean GR.5mmHgAVA (VMAX)3.28cm2 Mitral Valve MV E Bykdjfxi96.9cm/sMV DECEL FWHN860ft MV A Iluknzsq66.0cm/sMV [id number] E/A Ratio1.0MV A [id number] MVA (PHT)2.75cm2 Tricuspid Valve TR P. Dzrtnajw262ce/sRAP [id number] TR Peak Gr.74fcDcNPRU76gsMt LEFT VENTRICLE The left ventricle is normal size. There is moderate to severe concentric left ventricular hypertroph y. Left ventricle systolic function is normal. The Ejection Fraction is >70%. There is normal LV segm ental wall motion. The left ventricular diastolic function and filling is normal for age. There is no ventricular septal defect visualized. RIGHT VENTRICLE The right ventricle is normal size. The right ventricular systolic function is normal. ATRIA The left atrium size is normal. The right atrium size is normal. The interatrial septum is intact wit h no evidence for an atrial septal defect or patent foramen ovale as noted on 2-D or Doppler imaging. Injection of bubbles documented no interatrial shunt. AORTIC VALVE The aortic valve is normal in structure and function. The aortic valve is trileaflet. Doppler and Col or Flow revealed no significant aortic regurgitation. There is no significant aortic valvular stenosi s. MITRAL VALVE The mitral valve leaflets are thickened. There is no mitral valve stenosis. Doppler and Color Flow re vealed no mitral valve regurgitation noted. TRICUSPID VALVE The tricuspid valve is normal in structure and function. Doppler and Color Flow revealed trace tricus pid regurgitation. The PA pressure was estimated at 20 mmHg. There is no tricuspid valve stenosis. PULMONIC VALVE The pulmonic valve is not well visualized. Doppler and Color Flow revealed no pulmonic valvular regur gitation. There is no pulmonic valvular stenosis. GREAT VESSELS The aortic root is normal in size. Pulmonary veins not recorded. The IVC is normal in size and collap ses >50% with inspiration. PERICARDIAL EFFUSION There is a small anterior pericardial effusion, without significant hemodynamic effect Critical Notification Critical Value: No <Conclusion> There is moderate to severe concentric left ventricular hypertrophy. Left ventricle systolic function is normal. The Ejection Fraction is >70%. There is normal LV segmental wall motion. The interatrial septum is intact with no evidence for an atrial septal defect or patent foramen ovale as noted on 2-D or Doppler imaging. Injection of bubbles documented no interatrial shunt. There is a small anterior pericardial effusion, without significant hemodynamic effect
[2017-05-26] MEDS: CIPROFLOXACIN 400MG PREMIX 200 ML IV SCH ×2 (12:13→19:55)
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
[2017-05-26 12:22] VITALS: BP 163/84
--- NOTE | 2017-05-26 12:26 | RAD ---
EXAMINATION: Magnetic resonance imaging (MRI) of the brain and brainstem without and with contrast 05/26/2017 5:00 AM HISTORY: New onset seizures TECHNIQUE: Multiplanar multi-weighted MRI of the brain and brainstem was performed without and with intravenous contrast using the seizure brain protocol. Contrast information: 6 mL Gadolinium based contrast COMPARISON: None available. FINDINGS: Findings are limited by motion artifact. The scalp and calvarium are normal. The superior sagittal sinus demonstrates normal venous flow. The corpus callosum is normal in shape and signal intensity. Mild cerebellar atrophy appears stable. The pituitary and sella are normal. There were areas of T2/FLAIR signal hyperintensity in the periventricular and subcortical white matter compatible with chronic small vessel ischemic changes. Remote lacunar infarct identified in the left basal ganglia. There is new FLAIR signal hyperintensity in the posterior limb of the internal capsule, along the lateral geniculate nucleus of the thalamus. There is associated enhancement in this region measuring approximately 11 x 5 mm. Additional enhancement is identified along the cortex in the left middle frontal gyrus (series 11, image 17). There is similar degree of pontine T2 and FLAIR signal hyperintensity, unchanged. Hippocampi are normal in signal intensity and morphology. Diffusion weighted images reveal no hyperintensities to suggest acute cerebral infarction. The susceptibility weighted sequences reveal no evidence of acute or chronic hemorrhage. There is ex vacuo dilatation of the frontal horn of the left lateral ventricle, likely from prior infarct. Ventricles, sulci and basal cisterns are prominent compatible with moderate generalized cerebral volume loss, stable. The paranasal sinuses are normal. Bilateral mastoid effusions are present. The orbits appear normal. Normal flow voids are demonstrated in the carotid arteries and basilar artery. IMPRESSION: 1. There is new enhancement with associated FLAIR signal hyperintensity involving the posterior limb of the left internal capsule as well as in the left middle frontal gyrus cortex. Findings likely represent late subacute to early chronic infarcts given history of prior infarcts. However, 2-3 month follow-up is recommended to ensure evolution of infarct and exclude developing neoplasm. There is no associated diffusion signal hyperintensity (which may have normalized or pseudonormalized). 2. Remote lacunar infarct is noted in the left basal ganglia. Chronic small vessel ischemic changes are noted in the periventricular subcortical white matter. 3. No acute intracranial hemorrhage. 4. Similar morphology of the lateral ventricles with prominence of the ventricles, sulci and basal cisterns compatible with moderate generalized cerebral volume loss. 5. Similar degree of T2 signal hyperintensity within the lucero, likely chronic. Critical results were discussed with the patient's nurse Natalie at 12:10 PM on 05/26/[address] Munson. Electronically signed by: Flores Munson MD (05/26/2017 12:22 PM) [id number]
[2017-05-26] MEDS ORDERED: MAGNESIUM SULFATE 1GM 100 ML IV ONE (13:00)
--- NOTE | 2017-05-26 14:07 | EEG ---
DATE OF SERVICE: 05/26/2017 This is EEG #[id number] performed on 05/26/2017. OBJECTIVE: The patient is a 56-year-old male with new onset of seizure. DESCRIPTION: This is a digital study. Electrodes are placed according to the international 10-20 system. Bipolar and referential montages are available. Activation procedures typically include hyperventilation and intermittent photic stimulation. INTERPRETATION: The waking background consists of 8 Hz, 50-100 microvolt activity, symmetrically distributed over parietooccipital regions and reactive to eye opening. Hyperventilation and intermittent photic stimulation are noncontributory. Stage I sleep is achieved with normal electroencephalogram patterns. IMPRESSION: This electroencephalogram with the patient awake and asleep is within normal limits. There is no focal, paroxysmal, or epileptiform activity. Thank you for letting us help with the patient's care. NADEGE JAIN MD DR: CHACHO/maria isabel JOB#: [id number] / [id number] WILLIAM Short DO
--- NOTE | 2017-05-26 14:44 | PDOC2 ---
NEUROLOGY CONSULT Date of Admission Date of Admission DATE: 05/26/17 TIME: 14:35 Reason for Consult Reason for Consult: Seizure Referring Physician Referring Physician: Dr. Hope PCP: [facility] Source Source: Chart review, Patient History of Present Illness History of Present Illness The patient is a 56-year-old right-handed male who was sitting in his wheelchair yesterday when he had a seizure. He was told that he had a convulsion any and have incontinence. He has no memory. He had a similar episode about a year or so ago and was at the [facility]. He has never been on anticonvulsants. He does not recall having an EEG or an MRI. He feels fine today. He is chronically in a wheelchair following bilateral below the knee amputations. He denies any history of stroke or head injury. Past Medical History Cardiovascular: HTN CENTRAL NERVOUS SYSTEM: Seizure Heme/Onc: Anemia NOS Renal/: Urinary Incontinence Endocrine: Diabetes Dermatology: Other (pressure ulcer) Past Surgical History Past Surgical History: Other (bilateral below the knee amputation) Family History Family History: No pertinent hx (negative for seizures) Social History Social History , no alcohol or tobacco, disabled Current Medications Current Medications Current Medications Sodium Chloride 1,000 ml @ 1,000 mls/hr Q1H IV Last administered on 05/25/17 10:58; Start 05/25/17 at 10:28; Stop 05/25/17 at 11:27; Status DC Ondansetron HCl (Zofran) 4 mg PRN Q8HRS PRN IV NAUSEA/VOMITING; Start 05/25/17 at 13:00; Stop 05/26/17 at 12:59; Status DC Sodium Chloride 1,000 ml @ 150 mls/hr Q6H40M IV Last administered on 08:59; Start 05/25/17 at 12:59; Stop 05/26/17 at 12:58; Status DC Pneumococcal Polyvalent Vaccine (Do NOT chart on this placeholder) 1 each PRN DAILY PRN MC PER PROTOCOL; Start 05/25/17 at 20:00 Losartan Potassium (Cozaar) 50 mg DAILY PO Last administered on 05/26/17 09:46 ; Start 05/26/17 at 09:00 Clopidogrel Bisulfate (Plavix) 75 mg DAILY PO Last administered on 05/26/17 09 :46; Start 05/26/17 at 09:00 Atorvastatin Calcium (Lipitor) 40 mg QHS PO ; Start 05/25/17 at 21:00; Status Cancel Tamsulosin HCl (Flomax) 0.4 mg QHS PO Last administered on 05/25/17 21:08; Start 05/25/17 at 21:00 Acetaminophen/ Hydrocodone Bitart (Lortab 5/325) 1 tab PRN Q6HRS PRN PO PAIN; Start 05/25/17 at 18:15 Atorvastatin Calcium (Lipitor) 40 mg QHS PO Last administered on 05/25/17 21: 08; Start 05/25/17 at 21:00 Insulin Detemir (Levemir) 28 units QHS SQ Last administered on 05/25/17 21:23 ; Start 05/25/17 at 21:00 Insulin Aspart (NovoLOG) 0-5 UNITS TIDWMEALS SQ Last administered on 05/26/17 12:18; Start 05/26/17 at 08:00 Dextrose (Dextrose 50%-Water Syringe) 12.5 gm PRN Q15MIN PRN IV SEE COMMENTS; Start 05/25/17 at 18:15 Potassium Chloride (Klor-Con) 40 meq 1X ONCE PO Last administered on 09:45; Start 05/26/17 at 08:15; Stop 05/26/17 at 08:24; Status DC Ciprofloxacin/ Dextrose 200 ml @ 200 mls/hr Q12HR IV Last administered on 05/26 12:13; Start 05/26/17 at 10:00 Gadobutrol (Gadavist) 6 mmol 1X ONCE IV Last administered on 05/26/17 11:39; Start 05/26/17 at 11:30; Stop 05/26/17 at 11:31; Status DC Magnesium Sulfate/ Dextrose 100 ml @ 100 mls/hr 1X ONCE IV Last administered on 05/26/17 14:03; Start 05/26/17 at 13:00; Stop 05/26/17 at 13:59; Status DC Active Scripts Active Reported Metformin Hcl 500 Mg Tablet 500 Mg PO BIDWMEALS Clopidogrel (Clopidogrel Bisulfate) 75 Mg Tablet 75 Mg PO DAILY Atorvastatin Calcium 80 Mg Tablet 0.5 Tab PO DAILY Novolog Flexpen (Insulin Aspart) 100 Unit/1 Ml Insuln.pen 10 Unit SQ TIDAC Lantus Solostar (Insulin Glargine,Hum.rec.anlog) 100 Unit/1 Ml Insuln.pen 28 Unit SQ QHS Hydrocodone-Apap 5-325 (Hydrocodone Bit/Acetaminophen) 1 Each Tablet 1 Tab PO PRN Q6HRS PRN Allergies Allergies: Coded Allergies: I S O L A T I O N *CONTACT* (Verified Allergy, Unknown, 12/28/16) mrsa aspirin (Verified Adverse Reaction, Intermediate, Nausea and Vomiting, GI BLEED, 12/28/16) ROS Review of System Patient denies fevers, chills, weight loss, dyspnea, angina, abdominal pain, change in bowels, or dysuria. 14 point review of systems is negative. Physical Exam Physical Examination PHYSICAL EXAMINATION: Vital signs: see above. General appearance is normal and in no acute distress. HEENT: Normocephalic and nontraumatic. Eyes, nose, ears, and throat are unremarkable. Neck is supple. No lymphadenopathy. No bruits are heard over the carotid artery. No crepitus. NEUROLOGICAL EXAMINATION: Mental Status Examination: Alert. Oriented to time, place, and person. Answers questions and follows commends. Pupils are equal round and reactive to light and accommodation. Extraocular movements are intact. Visual field exam shows no defect on the direct confrontation. No motor or sensory deficits on the facial exam. Uvula in the midline and the soft palate elevated symmetrically. No deviation of the tongue to any direction. Gross hearing is normal. Shoulder shrug normal. Muscle tone is normal. Muscle strength is 5. Deep tendon reflexes are 1+ all around. [id number] test performance is accurate. Alternative movements are accurate. Gait not tested, has bilateral below the knee amputations. Sensory exam shows no deficits. No cerebellar signs are elicited. Vitals VITALS Vital Signs Date Time Temp Pulse Resp B/P (MAP) Pulse Ox O2 Delivery O2 Flow Rate FiO2 05/26/17 12:22 97.9 71 18 163/84 (110) 100 Room Air 97.9 Labs Labs Laboratory Tests Test 05/25/17 10:25 05/25/17 13:44 05/25/17 14:25 05/25/17 16:47 White Blood Count 10.0 x10^3/uL (4.0-11.0) Red Blood Count 2.80 x10^6/uL (4.30-5.70) Hemoglobin 8.3 g/dL (13.0-17.5) Hematocrit 24.1 % (39.0-53.0) Mean Corpuscular Volume 86 fL (79-100) Mean Corpuscular Hemoglobin 29 pg (25-35) Mean Corpuscular Hemoglobin Concent 34 g/dL (31-37) Red Cell Distribution Width 15.1 % (11.5-14.5) Platelet Count 239 x10^3/uL (140-400) Neutrophils (%) (Auto) 60 % (31-73) Lymphocytes (%) (Auto) 33 % (24-48) Monocytes (%) (Auto) 5 % (0-9) Eosinophils (%) (Auto) 2 % (0-3) Basophils (%) (Auto) 1 % (0-3) Neutrophils # (Auto) 6.0 x10^3uL (1.8-7.7) Lymphocytes # (Auto) 3.3 x10^3/uL (1.0-4.8) Monocytes # (Auto) 0.5 x10^3/uL (0.0-1.1) Eosinophils # (Auto) 0.2 x10^3/uL (0.0-0.7) Basophils # (Auto) 0.1 x10^3/uL (0.0-0.2) Prothrombin Time 14.7 SEC (11.7-14.0) Prothromb Time International Ratio 1.2 (0.8-1.1) Activated Partial Thromboplast Time 35 SEC (24-38) Sodium Level 138 mmol/L (136-145) Potassium Level 3.6 mmol/L (3.5-5.1) Chloride Level 105 mmol/L (98-107) Carbon Dioxide Level 28 mmol/L (21-32) Anion Gap 5 (6-14) Blood Urea Nitrogen 23 mg/dL (8-26) Creatinine 1.5 mg/dL (0.7-1.3) Estimated GFR (Cockcroft-Gault) 58.4 BUN/Creatinine Ratio 15 (6-20) Glucose Level 227 mg/dL (70-99) Calcium Level 8.5 mg/dL (8.5-10.1) Magnesium Level 1.7 mg/dL (1.8-2.4) Total Bilirubin 0.2 mg/dL (0.2-1.0) Aspartate Amino Transf (AST/SGOT) 23 U/L (15-37) Alanine Aminotransferase (ALT/SGPT) 19 U/L (16-63) Alkaline Phosphatase 121 U/L (46-116) Creatine Kinase 49 U/L (39-308) Creatine Kinase MB (Mass) 0.6 ng/mL (0.0-3.6) Creatine Kinase MB Relative Index 1.2 % (0-4) Troponin I Quantitative < 0.017 ng/mL (0.000-0.055) Total Protein 7.8 g/dL (6.4-8.2) Albumin 1.5 g/dL (3.4-5.0) Albumin/Globulin Ratio 0.2 (1.0-1.7) Thyroid Stimulating Hormone (TSH) 1.711 uIU/mL (0.358-3.74) Urine Collection Type Unknown Urine Color Yellow Urine Clarity Cloudy Urine pH 6.0 Urine Specific [place] 1.015 Urine Protein >=300 mg/dL (NEG-TRACE) Urine Glucose (UA) 250 mg/dL (NEG) Urine Ketones (Stick) Negative mg/dL (NEG) Urine Blood Large (NEG) Urine Nitrite Negative (NEG) Urine Bilirubin Negative (NEG) Urine Urobilinogen Dipstick 0.2 mg/dL (0.2 mg/dL) Urine Leukocyte Esterase Large (NEG) Urine RBC 6-10 /HPF (0-2) Urine WBC Tntc /HPF (0-4) Urine Squamous Epithelial Cells Few /LPF Urine Bacteria Many /HPF (0-FEW) Urine Mucus Mod /LPF Nasal Screen MRSA (PCR) Positive (Negative) Glucose (Fingerstick) 280 mg/dL (70-99) Test 05/25/17 21:20 05/26/17 03:40 05/26/17 09:36 05/26/17 12:13 Glucose (Fingerstick) 324 mg/dL (70-99) 139 mg/dL (70-99) 158 mg/dL (70-99) White Blood Count 8.2 x10^3/uL (4.0-11.0) Red Blood Count 2.73 x10^6/uL (4.30-5.70) Hemoglobin 8.1 g/dL (13.0-17.5) Hematocrit 23.2 % (39.0-53.0) Mean Corpuscular Volume 85 fL (79-100) Mean Corpuscular Hemoglobin 30 pg (25-35) Mean Corpuscular Hemoglobin Concent 35 g/dL (31-37) Red Cell Distribution Width 14.9 % (11.5-14.5) Platelet Count 199 x10^3/uL (140-400) Neutrophils (%) (Auto) 56 % (31-73) Lymphocytes (%) (Auto) 36 % (24-48) Monocytes (%) (Auto) 6 % (0-9) Eosinophils (%) (Auto) 2 % (0-3) Basophils (%) (Auto) 0 % (0-3) Neutrophils # (Auto) 4.6 x10^3uL (1.8-7.7) Lymphocytes # (Auto) 3.0 x10^3/uL (1.0-4.8) Monocytes # (Auto) 0.5 x10^3/uL (0.0-1.1) Eosinophils # (Auto) 0.1 x10^3/uL (0.0-0.7) Basophils # (Auto) 0.0 x10^3/uL (0.0-0.2) Sodium Level 139 mmol/L (136-145) Potassium Level 3.2 mmol/L (3.5-5.1) Chloride Level 106 mmol/L (98-107) Carbon Dioxide Level 28 mmol/L (21-32) Anion Gap 5 (6-14) Blood Urea Nitrogen 25 mg/dL (8-26) Creatinine 1.4 mg/dL (0.7-1.3) Estimated GFR (Cockcroft-Gault) 63.2 Glucose Level 251 mg/dL (70-99) Calcium Level 8.0 mg/dL (8.5-10.1) Triglycerides Level 214 mg/dL (0-150) Cholesterol Level 263 mg/dL (0-200) LDL Cholesterol, Calculated 191 mg/dL (0-100) VLDL Cholesterol, Calculated 43 mg/dL (0-40) Non-HDL Cholesterol Calculated 234 mg/dL (0-129) HDL Cholesterol 29 mg/dL (40-60) Cholesterol/HDL Ratio 9.1 Laboratory Tests Test 05/25/17 16:47 05/25/17 21:20 05/26/17 03:40 05/26/17 09:36 Glucose (Fingerstick) 280 mg/dL (70-99) 324 mg/dL (70-99) 139 mg/dL (70-99) White Blood Count 8.2 x10^3/uL (4.0-11.0) Red Blood Count 2.73 x10^6/uL (4.30-5.70) Hemoglobin 8.1 g/dL (13.0-17.5) Hematocrit 23.2 % (39.0-53.0) Mean Corpuscular Volume 85 fL (79-100) Mean Corpuscular Hemoglobin 30 pg (25-35) Mean Corpuscular Hemoglobin Concent 35 g/dL (31-37) Red Cell Distribution Width 14.9 % (11.5-14.5) Platelet Count 199 x10^3/uL (140-400) Neutrophils (%) (Auto) 56 % (31-73) Lymphocytes (%) (Auto) 36 % (24-48) Monocytes (%) (Auto) 6 % (0-9) Eosinophils (%) (Auto) 2 % (0-3) Basophils (%) (Auto) 0 % (0-3) Neutrophils # (Auto) 4.6 x10^3uL (1.8-7.7) Lymphocytes # (Auto) 3.0 x10^3/uL (1.0-4.8) Monocytes # (Auto) 0.5 x10^3/uL (0.0-1.1) Eosinophils # (Auto) 0.1 x10^3/uL (0.0-0.7) Basophils # (Auto) 0.0 x10^3/uL (0.0-0.2) Sodium Level 139 mmol/L (136-145) Potassium Level 3.2 mmol/L (3.5-5.1) Chloride Level 106 mmol/L (98-107) Carbon Dioxide Level 28 mmol/L (21-32) Anion Gap 5 (6-14) Blood Urea Nitrogen 25 mg/dL (8-26) Creatinine 1.4 mg/dL (0.7-1.3) Estimated GFR (Cockcroft-Gault) 63.2 Glucose Level 251 mg/dL (70-99) Calcium Level 8.0 mg/dL (8.5-10.1) Triglycerides Level 214 mg/dL (0-150) Cholesterol Level 263 mg/dL (0-200) LDL Cholesterol, Calculated 191 mg/dL (0-100) VLDL Cholesterol, Calculated 43 mg/dL (0-40) Non-HDL Cholesterol Calculated 234 mg/dL (0-129) HDL Cholesterol 29 mg/dL (40-60) Cholesterol/HDL Ratio 9.1 Test 05/26/17 12:13 Glucose (Fingerstick) 158 mg/dL (70-99) Images Images MRI brain: Findings are limited by motion artifact. The scalp and calvarium are normal. The superior sagittal sinus demonstrates normal venous flow. The corpus callosum is normal in shape and signal intensity. Mild cerebellar atrophy appears stable. The pituitary and sella are normal. There were areas of T2/FLAIR signal hyperintensity in the periventricular and subcortical white matter compatible with chronic small vessel ischemic changes. Remote lacunar infarct identified in the left basal ganglia. There is new FLAIR signal hyperintensity in the posterior limb of the internal capsule, along the lateral geniculate nucleus of the thalamus. There is associated enhancement in this region measuring approximately 11 x 5 mm. Additional enhancement is identified along the cortex in the left middle frontal gyrus (series 11, image 17). There is similar degree of pontine T2 and FLAIR signal hyperintensity, unchanged. Hippocampi are normal in signal intensity and morphology. Diffusion weighted images reveal no hyperintensities to suggest acute cerebral infarction. The susceptibility weighted sequences reveal no evidence of acute or chronic hemorrhage. There is ex vacuo dilatation of the frontal horn of the left lateral ventricle, likely from prior infarct. Ventricles, sulci and basal cisterns are prominent compatible with moderate generalized cerebral volume loss, stable. The paranasal sinuses are normal. Bilateral mastoid effusions are present. The orbits appear normal. Normal flow voids are demonstrated in the carotid arteries and basilar artery. IMPRESSION: 1. There is new enhancement with associated FLAIR signal hyperintensity involving the posterior limb of the left internal capsule as well as in the left middle frontal gyrus cortex. Findings likely represent late subacute to early chronic infarcts given history of prior infarcts. However, 2-3 month follow-up is recommended to ensure evolution of infarct and exclude developing neoplasm. There is no associated diffusion signal hyperintensity (which may have normalized or pseudonormalized). 2. Remote lacunar infarct is noted in the left basal ganglia. Chronic small vessel ischemic changes are noted in the periventricular subcortical white matter. 3. No acute intracranial hemorrhage. 4. Similar morphology of the lateral ventricles with prominence of the ventricles, sulci and basal cisterns compatible with moderate generalized cerebral volume loss. 5. Similar degree of T2 signal hyperintensity within the lucero, likely chronic. EEG: Normal Echocardiogram: LEFT VENTRICLE The left ventricle is normal size. There is moderate to severe concentric left ventricular hypertrophy. Left ventricle systolic function is normal. The Ejection Fraction is >70%. There is normal LV segmental wall motion. The left ventricular diastolic function and filling is normal for age. There is no ventricular septal defect visualized. RIGHT VENTRICLE The right ventricle is normal size. The right ventricular systolic function is normal. ATRIA The left atrium size is normal. The right atrium size is normal. The interatrial septum is intact with no evidence for an atrial septal defect or patent foramen ovale as noted on 2-D or Doppler imaging. Injection of bubbles documented no interatrial shunt. AORTIC VALVE The aortic valve is normal in structure and function. The aortic valve is trileaflet. Doppler and Color Flow revealed no significant aortic regurgitation. There is no significant aortic valvular stenosis. MITRAL VALVE The mitral valve leaflets are thickened. There is no mitral valve stenosis. Doppler and Color Flow revealed no mitral valve regurgitation noted. TRICUSPID VALVE The tricuspid valve is normal in structure and function. Doppler and Color Flow revealed trace tricuspid regurgitation. The PA pressure was estimated at 20 mmHg. There is no tricuspid valve stenosis. PULMONIC VALVE The pulmonic valve is not well visualized. Doppler and Color Flow revealed no pulmonic valvular regurgitation. There is no pulmonic valvular stenosis. GREAT VESSELS The aortic root is normal in size. Pulmonary veins not recorded. The IVC is normal in size and collapses >50% with inspiration. PERICARDIAL EFFUSION There is a small anterior pericardial effusion, without significant hemodynamic effect Critical Notification Critical Value: No <Conclusion> There is moderate to severe concentric left ventricular hypertrophy. Left ventricle systolic function is normal. The Ejection Fraction is >70%. There is normal LV segmental wall motion. The interatrial septum is intact with no evidence for an atrial septal defect or patent foramen ovale as noted on 2-D or Doppler imaging. Injection of bubbles documented no interatrial shunt. There is a small anterior pericardial effusion, without significant hemodynamic effect In Assessment/Plan Assessment/Plan Impression: Cerebral lesions, posterior limb of the left internal capsule, left middle frontal gyrus cortex, lucero, most likely infarcts Seizure by history yesterday, negative EEG, probably has had seizures in the past. Below the knee amputations. Left ventricular hypertrophy, small pericardial effusion Recommendations: Carotid Dopplers Continue Plavix and statin Not a candidate for alteplase, strokes are subacute or chronic Rehabilitation modalities. I discussed risks, benefits, alternatives, side effects, I will start the patient on levetiracetam. He does not drive anyway, but I did alcohol and drug counselor him not to drive for 6 months without a seizure. Aim for discharge tomorrow. Thank you for letting me help with the patient's care. NADEGE JAIN MD May 26, 2017 14:44
[2017-05-26] MEDS: levETIRAcetam 500 MG TABLET PO SCH ×2 (15:36→21:17)
[2017-05-26 15:59] VITALS: BP 158/79
[2017-05-26] MEDS ORDERED: PNEUMOC CONJ VACC 23-VALENT 0.5 ML VIAL. VAX IM ONE (16:45)
[2017-05-26 19:58] VITALS: BP 138/71
[2017-05-26] MEDS: ATORVASTATIN CALCIUM 40 MG TABLET. PO SCH (21:17)
[2017-05-26] MEDS: TAMSULOSIN 0.4 MG CAP.ER.24H. PO SCH (21:17)
[2017-05-26] MEDS: INSULIN DETEMIR 300 UNITS/3 ML INSULN.PEN. SQ SCH (21:46)
[2017-05-26 23:26] VITALS: BP 146/71
[2017-05-27 03:00] VITALS: BP 151/67
[2017-05-27 06:30] LABS: BASO % 0 % (0-3); EOS % 2 % (0-3); HEMATOCRIT 22.6 % (39.0-53.0); HEMOGLOBIN 7.9 g/dL (13.0-17.5); LYMPH # 2.8 x10^3/uL (1.0-4.8); LYMPH % 34 % (24-48); MEAN CORPUSCULAR HEMOGLOBIN 30 pg (25-35); MEAN CORPUSCULAR HGB CONC 35 g/dL (31-37); MEAN CORPUSCULAR VOLUME 85 fL (79-100); MONO % 7 % (0-9); NEUT % 57 % (31-73); PLATELET COUNT 200 x10^3/uL (140-400); RED BLOOD COUNT 2.64 x10^6/uL (4.30-5.70); RED CELL DISTRIBUTION WIDTH 15.3 % (11.5-14.5); WHITE BLOOD COUNT 8.3 x10^3/uL (4.0-11.0)
[2017-05-27 06:42] LABS: CALCIUM 8.4 mg/dL (8.5-10.1); CREATININE 1.6 mg/dL (0.7-1.3); GFR 54.2; POTASSIUM 3.5 mmol/L (3.5-5.1)
[2017-05-27 06:52] LABS: PHOSPHORUS 3.2 mg/dL (2.6-4.7)
[2017-05-27 07:10] VITALS: BP 168/86
--- NOTE | 2017-05-27 07:33 | RAD ---
Carotid ultrasound, 05/26/2017: History: CVA Duplex evaluation of the carotid arteries in the neck was performed including grayscale, color-flow and spectral Doppler analysis. There is mild to moderate atherosclerotic plaquing at both carotid bifurcations. The plaques are partially calcified. On the right the peak systolic velocity in the internal carotid artery is 127 cm per sec with an end-diastolic velocity of 27 cm/s. The internal carotid to common carotid artery ratio is 1.3. The Doppler findings suggest narrowing in the 0-50% diameter range. On the left the peak systolic velocity in the internal carotid artery is 80 cm/s with an end-diastolic velocity of 13 cm/s. The internal carotid to common carotid artery ratio is 0.8. These Doppler findings also indicate 0-50% diameter narrowing. Antegrade flow is present in both vertebral arteries in the neck. IMPRESSION: Moderate atherosclerotic plaquing at both carotid bifurcations with underlying luminal narrowing in the 0-50% diameter range bilaterally. Note: Stenosis calculations for CTA, MRA and conventional angiography are based upon determination of the distal ICA diameter in accordance with the NASCET methodology. Stenosis calculations for Doppler studies are derived from validated velocity criteria which are known to correlate with NASCET methodology of determining stenosis.
--- NOTE | 2017-05-27 08:04 | PDOC ---
PROGRESS NOTES Assessment Problems Medical Problems: (1) Chronic anemia Status: Acute (2) Hypertension Status: Acute (3) Peripheral vascular disease Status: Acute (4) Severe protein-calorie malnutrition Status: Acute (5) Syncope Status: Acute (6) Uncontrolled diabetes mellitus Status: Acute Cerebral lesions, posterior limb of the left internal capsule, left middle frontal gyrus cortex, lucero, most likely infarcts Seizure by history yesterday, negative EEG, probably has had seizures in the past. Below the knee amputations. Left ventricular hypertrophy, small pericardial effusion Recommendations: Plan Continue Plavix and statin Levetiracetam. Okay for discharge Follow up with me in 2 months Subjective No complaints Objective Vital Signs Date Time Temp Pulse Resp B/P (MAP) Pulse Ox O2 Delivery O2 Flow Rate FiO2 05/27/17 07:10 97.8 76 19 168/86 (113) 100 Room Air 97.8 PHYSICAL EXAM Alert. Oriented to time, place and person. PERRL. EOMI. CN: no focal findings. Muscle tone: normal. Muscle strength: 5/5 DTR: 1+ Plantar reflex: Flexor Gait: not examined, has bilateral leg amputations Sensory exam: no abnormal findings. No cerebellar signs elicited. Review of Relevant I have reviewed the following items yobani (where applicable) has been applied. Labs Laboratory Tests Test 05/25/17 10:25 05/25/17 13:44 05/25/17 14:25 05/25/17 16:47 White Blood Count 10.0 x10^3/uL (4.0-11.0) Red Blood Count 2.80 x10^6/uL (4.30-5.70) Hemoglobin 8.3 g/dL (13.0-17.5) Hematocrit 24.1 % (39.0-53.0) Mean Corpuscular Volume 86 fL (79-100) Mean Corpuscular Hemoglobin 29 pg (25-35) Mean Corpuscular Hemoglobin Concent 34 g/dL (31-37) Red Cell Distribution Width 15.1 % (11.5-14.5) Platelet Count 239 x10^3/uL (140-400) Neutrophils (%) (Auto) 60 % (31-73) Lymphocytes (%) (Auto) 33 % (24-48) Monocytes (%) (Auto) 5 % (0-9) Eosinophils (%) (Auto) 2 % (0-3) Basophils (%) (Auto) 1 % (0-3) Neutrophils # (Auto) 6.0 x10^3uL (1.8-7.7) Lymphocytes # (Auto) 3.3 x10^3/uL (1.0-4.8) Monocytes # (Auto) 0.5 x10^3/uL (0.0-1.1) Eosinophils # (Auto) 0.2 x10^3/uL (0.0-0.7) Basophils # (Auto) 0.1 x10^3/uL (0.0-0.2) Prothrombin Time 14.7 SEC (11.7-14.0) Prothromb Time International Ratio 1.2 (0.8-1.1) Activated Partial Thromboplast Time 35 SEC (24-38) Sodium Level 138 mmol/L (136-145) Potassium Level 3.6 mmol/L (3.5-5.1) Chloride Level 105 mmol/L (98-107) Carbon Dioxide Level 28 mmol/L (21-32) Anion Gap 5 (6-14) Blood Urea Nitrogen 23 mg/dL (8-26) Creatinine 1.5 mg/dL (0.7-1.3) Estimated GFR (Cockcroft-Gault) 58.4 BUN/Creatinine Ratio 15 (6-20) Glucose Level 227 mg/dL (70-99) Calcium Level 8.5 mg/dL (8.5-10.1) Magnesium Level 1.7 mg/dL (1.8-2.4) Total Bilirubin 0.2 mg/dL (0.2-1.0) Aspartate Amino Transf (AST/SGOT) 23 U/L (15-37) Alanine Aminotransferase (ALT/SGPT) 19 U/L (16-63) Alkaline Phosphatase 121 U/L (46-116) Creatine Kinase 49 U/L (39-308) Creatine Kinase MB (Mass) 0.6 ng/mL (0.0-3.6) Creatine Kinase MB Relative Index 1.2 % (0-4) Troponin I Quantitative < 0.017 ng/mL (0.000-0.055) Total Protein 7.8 g/dL (6.4-8.2) Albumin 1.5 g/dL (3.4-5.0) Albumin/Globulin Ratio 0.2 (1.0-1.7) Thyroid Stimulating Hormone (TSH) 1.711 uIU/mL (0.358-3.74) Urine Collection Type Unknown Urine Color Yellow Urine Clarity Cloudy Urine pH 6.0 Urine Specific [place] 1.015 Urine Protein >=300 mg/dL (NEG-TRACE) Urine Glucose (UA) 250 mg/dL (NEG) Urine Ketones (Stick) Negative mg/dL (NEG) Urine Blood Large (NEG) Urine Nitrite Negative (NEG) Urine Bilirubin Negative (NEG) Urine Urobilinogen Dipstick 0.2 mg/dL (0.2 mg/dL) Urine Leukocyte Esterase Large (NEG) Urine RBC 6-10 /HPF (0-2) Urine WBC Tntc /HPF (0-4) Urine Squamous Epithelial Cells Few /LPF Urine Bacteria Many /HPF (0-FEW) Urine Mucus Mod /LPF Nasal Screen MRSA (PCR) Positive (Negative) Glucose (Fingerstick) 280 mg/dL (70-99) Test 05/25/17 21:20 05/26/17 03:40 05/26/17 09:36 05/26/17 12:13 Glucose (Fingerstick) 324 mg/dL (70-99) 139 mg/dL (70-99) 158 mg/dL (70-99) White Blood Count 8.2 x10^3/uL (4.0-11.0) Red Blood Count 2.73 x10^6/uL (4.30-5.70) Hemoglobin 8.1 g/dL (13.0-17.5) Hematocrit 23.2 % (39.0-53.0) Mean Corpuscular Volume 85 fL (79-100) Mean Corpuscular Hemoglobin 30 pg (25-35) Mean Corpuscular Hemoglobin Concent 35 g/dL (31-37) Red Cell Distribution Width 14.9 % (11.5-14.5) Platelet Count 199 x10^3/uL (140-400) Neutrophils (%) (Auto) 56 % (31-73) Lymphocytes (%) (Auto) 36 % (24-48) Monocytes (%) (Auto) 6 % (0-9) Eosinophils (%) (Auto) 2 % (0-3) Basophils (%) (Auto) 0 % (0-3) Neutrophils # (Auto) 4.6 x10^3uL (1.8-7.7) Lymphocytes # (Auto) 3.0 x10^3/uL (1.0-4.8) Monocytes # (Auto) 0.5 x10^3/uL (0.0-1.1) Eosinophils # (Auto) 0.1 x10^3/uL (0.0-0.7) Basophils # (Auto) 0.0 x10^3/uL (0.0-0.2) Sodium Level 139 mmol/L (136-145) Potassium Level 3.2 mmol/L (3.5-5.1) Chloride Level 106 mmol/L (98-107) Carbon Dioxide Level 28 mmol/L (21-32) Anion Gap 5 (6-14) Blood Urea Nitrogen 25 mg/dL (8-26) Creatinine 1.4 mg/dL (0.7-1.3) Estimated GFR (Cockcroft-Gault) 63.2 Glucose Level 251 mg/dL (70-99) Calcium Level 8.0 mg/dL (8.5-10.1) Triglycerides Level 214 mg/dL (0-150) Cholesterol Level 263 mg/dL (0-200) LDL Cholesterol, Calculated 191 mg/dL (0-100) VLDL Cholesterol, Calculated 43 mg/dL (0-40) Non-HDL Cholesterol Calculated 234 mg/dL (0-129) HDL Cholesterol 29 mg/dL (40-60) Cholesterol/HDL Ratio 9.1 Test 05/26/17 17:20 05/26/17 21:25 05/27/17 05:45 Glucose (Fingerstick) 230 mg/dL (70-99) 292 mg/dL (70-99) White Blood Count 8.3 x10^3/uL (4.0-11.0) Red Blood Count 2.64 x10^6/uL (4.30-5.70) Hemoglobin 7.9 g/dL (13.0-17.5) Hematocrit 22.6 % (39.0-53.0) Mean Corpuscular Volume 85 fL (79-100) Mean Corpuscular Hemoglobin 30 pg (25-35) Mean Corpuscular Hemoglobin Concent 35 g/dL (31-37) Red Cell Distribution Width 15.3 % (11.5-14.5) Platelet Count 200 x10^3/uL (140-400) Neutrophils (%) (Auto) 57 % (31-73) Lymphocytes (%) (Auto) 34 % (24-48) Monocytes (%) (Auto) 7 % (0-9) Eosinophils (%) (Auto) 2 % (0-3) Basophils (%) (Auto) 0 % (0-3) Neutrophils # (Auto) 4.7 x10^3uL (1.8-7.7) Lymphocytes # (Auto) 2.8 x10^3/uL (1.0-4.8) Monocytes # (Auto) 0.6 x10^3/uL (0.0-1.1) Eosinophils # (Auto) 0.1 x10^3/uL (0.0-0.7) Basophils # (Auto) 0.0 x10^3/uL (0.0-0.2) Sodium Level 140 mmol/L (136-145) Potassium Level 3.5 mmol/L (3.5-5.1) Chloride Level 107 mmol/L (98-107) Carbon Dioxide Level 27 mmol/L (21-32) Anion Gap 6 (6-14) Blood Urea Nitrogen 27 mg/dL (8-26) Creatinine 1.6 mg/dL (0.7-1.3) Estimated GFR (Cockcroft-Gault) 54.2 Glucose Level 258 mg/dL (70-99) Calcium Level 8.4 mg/dL (8.5-10.1) Phosphorus Level 3.2 mg/dL (2.6-4.7) Magnesium Level 2.0 mg/dL (1.8-2.4) Laboratory Tests Test 05/26/17 09:36 05/26/17 12:13 05/26/17 17:20 05/26/17 21:25 Glucose (Fingerstick) 139 mg/dL (70-99) 158 mg/dL (70-99) 230 mg/dL (70-99) 292 mg/dL (70-99) Test 05/27/17 05:45 White Blood Count 8.3 x10^3/uL (4.0-11.0) Red Blood Count 2.64 x10^6/uL (4.30-5.70) Hemoglobin 7.9 g/dL (13.0-17.5) Hematocrit 22.6 % (39.0-53.0) Mean Corpuscular Volume 85 fL (79-100) Mean Corpuscular Hemoglobin 30 pg (25-35) Mean Corpuscular Hemoglobin Concent 35 g/dL (31-37) Red Cell Distribution Width 15.3 % (11.5-14.5) Platelet Count 200 x10^3/uL (140-400) Neutrophils (%) (Auto) 57 % (31-73) Lymphocytes (%) (Auto) 34 % (24-48) Monocytes (%) (Auto) 7 % (0-9) Eosinophils (%) (Auto) 2 % (0-3) Basophils (%) (Auto) 0 % (0-3) Neutrophils # (Auto) 4.7 x10^3uL (1.8-7.7) Lymphocytes # (Auto) 2.8 x10^3/uL (1.0-4.8) Monocytes # (Auto) 0.6 x10^3/uL (0.0-1.1) Eosinophils # (Auto) 0.1 x10^3/uL (0.0-0.7) Basophils # (Auto) 0.0 x10^3/uL (0.0-0.2) Sodium Level 140 mmol/L (136-145) Potassium Level 3.5 mmol/L (3.5-5.1) Chloride Level 107 mmol/L (98-107) Carbon Dioxide Level 27 mmol/L (21-32) Anion Gap 6 (6-14) Blood Urea Nitrogen 27 mg/dL (8-26) Creatinine 1.6 mg/dL (0.7-1.3) Estimated GFR (Cockcroft-Gault) 54.2 Glucose Level 258 mg/dL (70-99) Calcium Level 8.4 mg/dL (8.5-10.1) Phosphorus Level 3.2 mg/dL (2.6-4.7) Magnesium Level 2.0 mg/dL (1.8-2.4) Microbiology 05/25/17 Urine Culture - Preliminary, Resulted 05/25/17 Urine Culture Result 1 ([facility]) - Preliminary, Resulted Medications Current Medications Sodium Chloride 1,000 ml @ 1,000 mls/hr Q1H IV Last administered on 05/25/17t 10:58; Start 10/4/17 at 10:28; Stop 05/25/17 at 11:27; Status DC Ondansetron HCl (Zofran) 4 mg PRN Q8HRS PRN IV NAUSEA/VOMITING; Start 05/25/17 at 13:00; Stop 05/26/17 at 12:59; Status DC Sodium Chloride 1,000 ml @ 150 mls/hr Q6H40M IV Last administered on 08:59; Start 05/25/17 at 12:59; Stop 05/26/17 at 12:58; Status DC Pneumococcal Polyvalent Vaccine (Do NOT chart on this placeholder) 1 each PRN DAILY PRN MC PER PROTOCOL; Start 05/25/17 at 20:00; Status Cancel Losartan Potassium (Cozaar) 50 mg DAILY PO Last administered on 05/26/17 09:46 ; Start 05/26/17 at 09:00 Clopidogrel Bisulfate (Plavix) 75 mg DAILY PO Last administered on 05/26/17 09 :46; Start 05/26/17 at 09:00 Atorvastatin Calcium (Lipitor) 40 mg QHS PO ; Start 05/25/17 at 21:00; Status Cancel Tamsulosin HCl (Flomax) 0.4 mg QHS PO Last administered on 05/26/17 21:17; Start 05/25/17 at 21:00 Acetaminophen/ Hydrocodone Bitart (Lortab 5/325) 1 tab PRN Q6HRS PRN PO PAIN; Start 05/25/17 at 18:15 Atorvastatin Calcium (Lipitor) 40 mg QHS PO Last administered on 05/26/17 21: 17; Start 05/25/17 at 21:00 Insulin Detemir (Levemir) 28 units QHS SQ Last administered on 05/26/17 21:46 ; Start 05/25/17 at 21:00 Insulin Aspart (NovoLOG) 0-5 UNITS TIDWMEALS SQ Last administered on 05/26/17 17:58; Start 05/26/17 at 08:00 Dextrose (Dextrose 50%-Water Syringe) 12.5 gm PRN Q15MIN PRN IV SEE COMMENTS; Start 05/25/17 at 18:15 Potassium Chloride (Klor-Con) 40 meq 1X ONCE PO Last administered on 09:45; Start 05/26/17 at 08:15; Stop 05/26/17 at 08:24; Status DC Ciprofloxacin/ Dextrose 200 ml @ 200 mls/hr Q12HR IV Last administered on 05/26 19:55; Start 05/26/17 at 10:00 Gadobutrol (Gadavist) 6 mmol 1X ONCE IV Last administered on 05/26/17 11:39; Start 05/26/17 at 11:30; Stop 05/26/17 at 11:31; Status DC Magnesium Sulfate/ Dextrose 100 ml @ 100 mls/hr 1X ONCE IV Last administered on 05/26/17 14:03; Start 05/26/17 at 13:00; Stop 05/26/17 at 13:59; Status DC Levetiracetam (Keppra) 500 mg BID PO Last administered on 05/26/17 21:17; Start 05/26/17 at 15:00 Pneumococcal Polyvalent Vaccine (Pneumovax 23) 0.5 ml ONCE ONCE VAX IM Last administered on 05/26/17 17:54; Start 05/26/17 at 16:45; Stop 05/26/17 at 16:46 ; Status DC Active Scripts Active Reported Metformin Hcl 500 Mg Tablet 500 Mg PO BIDWMEALS Clopidogrel (Clopidogrel Bisulfate) 75 Mg Tablet 75 Mg PO DAILY Atorvastatin Calcium 80 Mg Tablet 0.5 Tab PO DAILY Novolog Flexpen (Insulin Aspart) 100 Unit/1 Ml Insuln.pen 10 Unit SQ TIDAC Lantus Solostar (Insulin Glargine,Hum.rec.anlog) 100 Unit/1 Ml Insuln.pen 28 Unit SQ QHS Hydrocodone-Apap 5-325 (Hydrocodone Bit/Acetaminophen) 1 Each Tablet 1 Tab PO PRN Q6HRS PRN Vitals/I & O Vital Sign - Last 24 Hours 05/26/17 05/26/17 05/26/17 05/26/17 09:46 12:22 15:59 19:58 Temp 97.9 97.9 98.1 97.9 97.9 98.1 Pulse 70 71 70 78 Resp 18 18 20 B/P (MAP) 148/73 163/84 (110) 158/79 (105) 138/71 (93) Pulse Ox 100 99 100 O2 Delivery Room Air Room Air Room Air 05/26/17 05/26/17 05/27/17 05/27/17 20:09 23:26 03:00 07:10 Temp 98.1 98.0 97.8 98.1 98.0 97.8 Pulse 82 79 76 Resp 18 18 19 B/P (MAP) 146/71 (96) 151/67 (95) 168/86 (113) Pulse Ox 99 98 100 O2 Delivery Room Air Room Air Room Air Room Air Images Carotids: Moderate atherosclerotic plaquing at both carotid bifurcations with underlying luminal narrowing in the 0-50% diameter range bilaterally. NADEGE JAIN MD May 27, 2017 08:04
[2017-05-27] MEDS: CIPROFLOXACIN 400MG PREMIX 200 ML IV SCH (08:55)
[2017-05-27] MEDS: levETIRAcetam 500 MG TABLET PO SCH ×2 (08:56→21:09)
[2017-05-27] MEDS: LOSARTAN POTASSIUM 50 MG TABLET. PO SCH (08:56)
[2017-05-27] MEDS: CLOPIDOGREL BISULFATE 75 MG TABLET PO SCH (08:56)
[2017-05-27] MEDS: INSULIN ASPART 300 UNITS/3 ML INSULN.PEN SQ SCH ×4 (09:04→17:27)
[2017-05-27 11:09] VITALS: BP 171/80
--- NOTE | 2017-05-27 11:26 | PDOC ---
Renal-Progress Notes Subjective Notes Notes NO NEW COMPLAINTS History of Present Illness Hx of present illness STABLE Vitals Vitals Vital Signs Date Time Temp Pulse Resp B/P (MAP) Pulse Ox O2 Delivery O2 Flow Rate FiO2 05/27/17 11:09 98.6 77 19 171/80 (110) 100 Room Air 98.6 Weight Weight [ ] Labs Labs Laboratory Tests Test 05/26/17 12:13 05/26/17 17:20 05/26/17 21:25 05/27/17 05:45 Glucose (Fingerstick) 158 mg/dL (70-99) 230 mg/dL (70-99) 292 mg/dL (70-99) White Blood Count 8.3 x10^3/uL (4.0-11.0) Red Blood Count 2.64 x10^6/uL (4.30-5.70) Hemoglobin 7.9 g/dL (13.0-17.5) Hematocrit 22.6 % (39.0-53.0) Mean Corpuscular Volume 85 fL (79-100) Mean Corpuscular Hemoglobin 30 pg (25-35) Mean Corpuscular Hemoglobin Concent 35 g/dL (31-37) Red Cell Distribution Width 15.3 % (11.5-14.5) Platelet Count 200 x10^3/uL (140-400) Neutrophils (%) (Auto) 57 % (31-73) Lymphocytes (%) (Auto) 34 % (24-48) Monocytes (%) (Auto) 7 % (0-9) Eosinophils (%) (Auto) 2 % (0-3) Basophils (%) (Auto) 0 % (0-3) Neutrophils # (Auto) 4.7 x10^3uL (1.8-7.7) Lymphocytes # (Auto) 2.8 x10^3/uL (1.0-4.8) Monocytes # (Auto) 0.6 x10^3/uL (0.0-1.1) Eosinophils # (Auto) 0.1 x10^3/uL (0.0-0.7) Basophils # (Auto) 0.0 x10^3/uL (0.0-0.2) Sodium Level 140 mmol/L (136-145) Potassium Level 3.5 mmol/L (3.5-5.1) Chloride Level 107 mmol/L (98-107) Carbon Dioxide Level 27 mmol/L (21-32) Anion Gap 6 (6-14) Blood Urea Nitrogen 27 mg/dL (8-26) Creatinine 1.6 mg/dL (0.7-1.3) Estimated GFR (Cockcroft-Gault) 54.2 Glucose Level 258 mg/dL (70-99) Calcium Level 8.4 mg/dL (8.5-10.1) Phosphorus Level 3.2 mg/dL (2.6-4.7) Magnesium Level 2.0 mg/dL (1.8-2.4) Test 05/27/17 07:59 Glucose (Fingerstick) 251 mg/dL (70-99) Micro Micro Microbiology 05/25/17 Urine Culture - Preliminary, Resulted 05/25/17 Urine Culture Result 1 ([facility]) - Preliminary, Resulted Review of Systems Constitutional: yes: weakness, alert, oriented Ears/Nose/Throat: Yes: no symptom reported Eyes: Yes: no symptom reported Pulmonary: Yes no symptom reported Cardiovascular: Yes no symptom reported Genitourinary: Yes: no symptom reported Musculoskeletal: Yes: muscle stiffness Skin: Yes no symptom reported Psychiatric/Neurological: Yes: no symptom reported Endocrine: Yes: no symptom reported Physical Exam General Appearance: no apparent distress Skin: warm Respiratory: bilateral CTA Heart: S1S2, RRR Abdomen: soft, bowel sounds present Neurology: alert, oriented, follow commands Assessment Assessment IMP SYNCOPE UTI CKD STAGE 3-CR STABLE AT 1.5 HTN-UNCONTROLLED PLAN CONT ANTIBIOTICS INCREASE LOSARTAN TO 100 MG A DAY WILL FOLLOW HUMAIRA ODELL MD May 27, 2017 11:26
--- NOTE | 2017-05-27 12:28 | PDOC ---
PROGRESS NOTES Chief Complaint Chief Complaint Seizure Syncope ASSESSMENT AND PLAN: 1. Sz d/o: appreciate Dr Irwin's input. EEG apparently neg. 2. Syncope: no evidence of cardiolocic etiology (EKG NSR, tele w/o acute events; nl echo, not orthostsatic). Consider event monitor at discharge. 3. Hx CVA in November 2016. echo w/o septal defact 4. Accelerated HTN; better controlled with resumption of antiHTN therapy. 5. HLD: on statin 6. DM2: restart home meal dose insulin in addition to levemir 7. UTI: prelim cult with enterococcus. start linezolid 8. CKD: Cr at baseline 9. Hypokalemia/ hypomagnesemia; replace. Monitor lytes. 10. PVD: s/p bilat BKA, carotid stenosis 11. GERD: 12. Anemia: multifactorial 13. Dispo: History of Present Illness History of Present Illness FEELS OK, NO SOA, ABD PAIN OR OTHER ISSUES Vitals Vitals Vital Signs Date Time Temp Pulse Resp B/P (MAP) Pulse Ox O2 Delivery O2 Flow Rate FiO2 05/27/17 11:09 98.6 77 19 171/80 (110) 100 Room Air 98.6 Physical Exam General: Alert, Cooperative, No acute distress Heart: Regular rate Lungs: Clear Abdomen: Normal bowel sounds, Soft, No tenderness Extremities: No clubbing, No edema Skin: No rashes Labs LABS Laboratory Tests Test 05/26/17 17:20 05/26/17 21:25 05/27/17 05:45 05/27/17 07:59 Glucose (Fingerstick) 230 mg/dL (70-99) 292 mg/dL (70-99) 251 mg/dL (70-99) White Blood Count 8.3 x10^3/uL (4.0-11.0) Red Blood Count 2.64 x10^6/uL (4.30-5.70) Hemoglobin 7.9 g/dL (13.0-17.5) Hematocrit 22.6 % (39.0-53.0) Mean Corpuscular Volume 85 fL (79-100) Mean Corpuscular Hemoglobin 30 pg (25-35) Mean Corpuscular Hemoglobin Concent 35 g/dL (31-37) Red Cell Distribution Width 15.3 % (11.5-14.5) Platelet Count 200 x10^3/uL (140-400) Neutrophils (%) (Auto) 57 % (31-73) Lymphocytes (%) (Auto) 34 % (24-48) Monocytes (%) (Auto) 7 % (0-9) Eosinophils (%) (Auto) 2 % (0-3) Basophils (%) (Auto) 0 % (0-3) Neutrophils # (Auto) 4.7 x10^3uL (1.8-7.7) Lymphocytes # (Auto) 2.8 x10^3/uL (1.0-4.8) Monocytes # (Auto) 0.6 x10^3/uL (0.0-1.1) Eosinophils # (Auto) 0.1 x10^3/uL (0.0-0.7) Basophils # (Auto) 0.0 x10^3/uL (0.0-0.2) Sodium Level 140 mmol/L (136-145) Potassium Level 3.5 mmol/L (3.5-5.1) Chloride Level 107 mmol/L (98-107) Carbon Dioxide Level 27 mmol/L (21-32) Anion Gap 6 (6-14) Blood Urea Nitrogen 27 mg/dL (8-26) Creatinine 1.6 mg/dL (0.7-1.3) Estimated GFR (Cockcroft-Gault) 54.2 Glucose Level 258 mg/dL (70-99) Calcium Level 8.4 mg/dL (8.5-10.1) Phosphorus Level 3.2 mg/dL (2.6-4.7) Magnesium Level 2.0 mg/dL (1.8-2.4) Test 05/27/17 11:28 Glucose (Fingerstick) 311 mg/dL (70-99) CHRISTIAN ROBERTS MD May 27, 2017 12:28
[2017-05-27] MEDS: LINEZOLID 600 MG TABLET PO SCH ×2 (12:46→21:08)
--- NOTE | 2017-05-27 14:07 | PDOC ---
CARDIO Progress Notes Date and Time Date of Service 05/27/17 Time of Evaluation 1130 Subjective Subjective: No Chest Pain, No shortness of breath, No Palpitations Vitals Vitals Vital Signs Date Time Temp Pulse Resp B/P (MAP) Pulse Ox O2 Delivery O2 Flow Rate FiO2 05/27/17 11:09 98.6 77 19 171/80 (110) 100 Room Air 98.6 Weight Weight [ ] Laboratory Labs Laboratory Tests Test 05/26/17 17:20 05/26/17 21:25 05/27/17 05:45 05/27/17 07:59 Glucose (Fingerstick) 230 mg/dL (70-99) 292 mg/dL (70-99) 251 mg/dL (70-99) White Blood Count 8.3 x10^3/uL (4.0-11.0) Red Blood Count 2.64 x10^6/uL (4.30-5.70) Hemoglobin 7.9 g/dL (13.0-17.5) Hematocrit 22.6 % (39.0-53.0) Mean Corpuscular Volume 85 fL (79-100) Mean Corpuscular Hemoglobin 30 pg (25-35) Mean Corpuscular Hemoglobin Concent 35 g/dL (31-37) Red Cell Distribution Width 15.3 % (11.5-14.5) Platelet Count 200 x10^3/uL (140-400) Neutrophils (%) (Auto) 57 % (31-73) Lymphocytes (%) (Auto) 34 % (24-48) Monocytes (%) (Auto) 7 % (0-9) Eosinophils (%) (Auto) 2 % (0-3) Basophils (%) (Auto) 0 % (0-3) Neutrophils # (Auto) 4.7 x10^3uL (1.8-7.7) Lymphocytes # (Auto) 2.8 x10^3/uL (1.0-4.8) Monocytes # (Auto) 0.6 x10^3/uL (0.0-1.1) Eosinophils # (Auto) 0.1 x10^3/uL (0.0-0.7) Basophils # (Auto) 0.0 x10^3/uL (0.0-0.2) Sodium Level 140 mmol/L (136-145) Potassium Level 3.5 mmol/L (3.5-5.1) Chloride Level 107 mmol/L (98-107) Carbon Dioxide Level 27 mmol/L (21-32) Anion Gap 6 (6-14) Blood Urea Nitrogen 27 mg/dL (8-26) Creatinine 1.6 mg/dL (0.7-1.3) Estimated GFR (Cockcroft-Gault) 54.2 Glucose Level 258 mg/dL (70-99) Calcium Level 8.4 mg/dL (8.5-10.1) Phosphorus Level 3.2 mg/dL (2.6-4.7) Magnesium Level 2.0 mg/dL (1.8-2.4) Test 05/27/17 11:28 Glucose (Fingerstick) 311 mg/dL (70-99) Microbiology Micro Microbiology 05/25/17 Urine Culture - Preliminary, Resulted 05/25/17 Urine Culture Result 1 ([facility]) - Preliminary, Resulted Review of Systems Constitutional: yes: weakness, alert, oriented Ears/Nose/Throat: Yes: no symptom reported Eyes: Yes: no symptom reported Pulmonary: Yes no symptom reported Cardiovascular: Yes no symptom reported Genitourinary: Yes: no symptom reported Musculoskeletal: Yes: muscle stiffness Skin: Yes no symptom reported Psychiatric/Neurological: Yes: no symptom reported Endocrine: Yes: no symptom reported Physical Exam HEENT: Neck Supple W Full Motion Chest: Symmetric LUNGS: Clear to Auscultation Heart: S1S2, RRR, murmurs (2/6 systolic murmur ) Abdomen: Soft N/T Extremities: No Edema, Other (bilateral BKA, 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 Possible seizure; EEG negative. As per neuro 2. Syncope; EKG shows SR without acute changes. No acute events noted on telemetry. Orthostatic VS without significant changes from lying to sitting. Echo with preserved LV function. No WMA or septal defect documented. 3. Accelerated HTN; BP labile. losartan increased 4. CKD; Cr near baseline 5. Diabetes, II; as per PCP 6. Hyperlipidemia; LDL 191. statin 7. Hx of CVA: last episode 11/2016 8. Hypokalemia/ hypomagnesemia; replace. Monitor lytes. Recommendations Unable to have outpatient event monitor as patient recently had one conducted for 30 days (revealed SR, no AFIB or significant arrhythmias noted). If symptoms recurrent, could consider loop implantation, on an outpatient basis, for longer term monitoring. Continue supportive care. Will follow along peripherally. Patient to follow up in our office in 2-4 weeks. SAUD GARCIA APRN May 27, 2017 14:07
[2017-05-27 14:41] VITALS: BP 136/71
[2017-05-27 19:19] VITALS: BP 149/74
[2017-05-27 19:36] VITALS: BP 149/74
[2017-05-27] MEDS: TAMSULOSIN 0.4 MG CAP.ER.24H. PO SCH (21:09)
[2017-05-27] MEDS: ATORVASTATIN CALCIUM 40 MG TABLET. PO SCH (21:09)
[2017-05-27] MEDS: INSULIN DETEMIR 300 UNITS/3 ML INSULN.PEN. SQ SCH (21:22)
[2017-05-28 03:26] VITALS: BP 128/74
[2017-05-28 06:37] LABS: BASO % 0 % (0-3); EOS % 2 % (0-3); HEMATOCRIT 23.3 % (39.0-53.0); HEMOGLOBIN 8.2 g/dL (13.0-17.5); LYMPH % 34 % (24-48); MEAN CORPUSCULAR HEMOGLOBIN 30 pg (25-35); MEAN CORPUSCULAR HGB CONC 35 g/dL (31-37); MEAN CORPUSCULAR VOLUME 85 fL (79-100); MONO % 6 % (0-9); NEUT % 58 % (31-73); PLATELET COUNT 194 x10^3/uL (140-400); RED BLOOD COUNT 2.75 x10^6/uL (4.30-5.70); RED CELL DISTRIBUTION WIDTH 15.5 % (11.5-14.5); WHITE BLOOD COUNT 8.9 x10^3/uL (4.0-11.0)
[2017-05-28 07:10] LABS: CALCIUM 8.5 mg/dL (8.5-10.1); CREATININE 1.6 mg/dL (0.7-1.3); GFR 54.2; POTASSIUM 3.6 mmol/L (3.5-5.1)
[2017-05-28 07:22] VITALS: BP 140/71
[2017-05-28] MEDS: INSULIN ASPART 300 UNITS/3 ML INSULN.PEN SQ SCH ×6 (07:30→18:32)
[2017-05-28] MEDS: LOSARTAN POTASSIUM 50 MG TABLET. PO SCH (08:42)
[2017-05-28] MEDS: levETIRAcetam 500 MG TABLET PO SCH ×3 (08:42→21:00)
[2017-05-28] MEDS: CLOPIDOGREL BISULFATE 75 MG TABLET PO SCH (08:43)
[2017-05-28] MEDS: LINEZOLID 600 MG TABLET PO SCH ×3 (08:43→21:00)
--- NOTE | 2017-05-28 10:10 | PDOC ---
PROGRESS NOTES Chief Complaint Chief Complaint Seizure Syncope ASSESSMENT AND PLAN: 1. Sz d/o: appreciate Dr Irwin's input. EEG apparently neg. 2. Syncope: no evidence of cardiologic etiology (EKG NSR, tele w/o acute events; nl echo, not orthostatic). Consider event monitor at discharge. 3. Hx CVA in November 2016. echo w/o septal defect 4. Accelerated HTN; better controlled with resumption of antiHTN therapy. 5. HLD: on statin 6. DM2: restart home meal dose insulin in addition to levemir 7. UTI: cult with vanco sens enterococcus. on linezolid x 7d 8. CKD: Cr at baseline 9. Hypokalemia/ hypomagnesemia; replace. Monitor lytes. 10. PVD: s/p bilat BKA, carotid stenosis 11. GERD: on PPI 12. Anemia: multifactorial 13. Nauea: new this AM. no vomiting. zofran PRN 14. Dispo: d/c on oral Abx (linezolid) x1 week; OT rec.s SNF, pt declines History of Present Illness History of Present Illness feeling "sick", stomach upset, nausea, no vomiting. did not eat breakfast Vitals Vitals Vital Signs Date Time Temp Pulse Resp B/P (MAP) Pulse Ox O2 Delivery O2 Flow Rate FiO2 05/28/17 08:42 77 140/71 05/28/17 08:00 Room Air 05/28/17 07:22 97.8 16 98 97.8 Physical Exam General: Alert, Cooperative, No acute distress Heart: Regular rate Lungs: Clear Abdomen: Normal bowel sounds, Soft, No tenderness Extremities: No clubbing, No edema Skin: No rashes Labs LABS Laboratory Tests Test 05/27/17 11:28 05/27/17 16:59 05/27/17 20:48 05/27/17 21:08 Glucose (Fingerstick) 311 mg/dL (70-99) 243 mg/dL (70-99) 143 mg/dL (70-99) 132 mg/dL (70-99) Test 05/28/17 05:50 05/28/17 07:57 White Blood Count 8.9 x10^3/uL (4.0-11.0) Red Blood Count 2.75 x10^6/uL (4.30-5.70) Hemoglobin 8.2 g/dL (13.0-17.5) Hematocrit 23.3 % (39.0-53.0) Mean Corpuscular Volume 85 fL (79-100) Mean Corpuscular Hemoglobin 30 pg (25-35) Mean Corpuscular Hemoglobin Concent 35 g/dL (31-37) Red Cell Distribution Width 15.5 % (11.5-14.5) Platelet Count 194 x10^3/uL (140-400) Neutrophils (%) (Auto) 58 % (31-73) Lymphocytes (%) (Auto) 34 % (24-48) Monocytes (%) (Auto) 6 % (0-9) Eosinophils (%) (Auto) 2 % (0-3) Basophils (%) (Auto) 0 % (0-3) Neutrophils # (Auto) 5.1 x10^3uL (1.8-7.7) Lymphocytes # (Auto) 3.0 x10^3/uL (1.0-4.8) Monocytes # (Auto) 0.5 x10^3/uL (0.0-1.1) Eosinophils # (Auto) 0.2 x10^3/uL (0.0-0.7) Basophils # (Auto) 0.0 x10^3/uL (0.0-0.2) Sodium Level 143 mmol/L (136-145) Potassium Level 3.6 mmol/L (3.5-5.1) Chloride Level 110 mmol/L (98-107) Carbon Dioxide Level 25 mmol/L (21-32) Anion Gap 8 (6-14) Blood Urea Nitrogen 32 mg/dL (8-26) Creatinine 1.6 mg/dL (0.7-1.3) Estimated GFR (Cockcroft-Gault) 54.2 Glucose Level 105 mg/dL (70-99) Calcium Level 8.5 mg/dL (8.5-10.1) Glucose (Fingerstick) 115 mg/dL (70-99) CHRISTIAN ROBERTS MD May 28, 2017 10:10
[2017-05-28 11:16] VITALS: BP 132/76
[2017-05-28] MEDS ORDERED: ONDANSETRON PF 4 MG/2 ML VIAL. IV PRN (12:45)
[2017-05-28 15:23] VITALS: BP 129/68
[2017-05-28 19:00] VITALS: BP 145/73
[2017-05-28] MEDS: ATORVASTATIN CALCIUM 40 MG TABLET. PO SCH ×2 (20:58→21:00)
[2017-05-28] MEDS: TAMSULOSIN 0.4 MG CAP.ER.24H. PO SCH ×2 (20:58→21:00)
[2017-05-28] MEDS: INSULIN DETEMIR 300 UNITS/3 ML INSULN.PEN. SQ SCH (21:00)
[2017-05-28 23:00] VITALS: BP 137/70
[2017-05-29 03:00] VITALS: BP 139/74
[2017-05-29 06:40] LABS: BASO % 0 % (0-3); EOS % 3 % (0-3); HEMATOCRIT 24.4 % (39.0-53.0); HEMOGLOBIN 8.3 g/dL (13.0-17.5); LYMPH # 2.8 x10^3/uL (1.0-4.8); LYMPH % 35 % (24-48); MEAN CORPUSCULAR HEMOGLOBIN 29 pg (25-35); MEAN CORPUSCULAR HGB CONC 34 g/dL (31-37); MEAN CORPUSCULAR VOLUME 86 fL (79-100); MONO % 5 % (0-9); NEUT % 57 % (31-73); PLATELET COUNT 182 x10^3/uL (140-400); RED BLOOD COUNT 2.84 x10^6/uL (4.30-5.70); RED CELL DISTRIBUTION WIDTH 15.4 % (11.5-14.5); WHITE BLOOD COUNT 8.1 x10^3/uL (4.0-11.0)
[2017-05-29 06:41] LABS: CALCIUM 8.3 mg/dL (8.5-10.1); CREATININE 1.6 mg/dL (0.7-1.3); GFR 54.2; POTASSIUM 3.9 mmol/L (3.5-5.1)
[2017-05-29 06:55] VITALS: BP 170/88
[2017-05-29] MEDS: CLOPIDOGREL BISULFATE 75 MG TABLET PO SCH (08:37)
[2017-05-29] MEDS: LINEZOLID 600 MG TABLET PO SCH ×2 (08:37→21:50)
[2017-05-29] MEDS: LOSARTAN POTASSIUM 50 MG TABLET. PO SCH (08:38)
[2017-05-29] MEDS: levETIRAcetam 500 MG TABLET PO SCH ×2 (08:38→21:50)
[2017-05-29] MEDS: INSULIN ASPART 300 UNITS/3 ML INSULN.PEN SQ SCH ×6 (08:44→17:00)
[2017-05-29 11:34] VITALS: BP 161/80
[2017-05-29 14:48] VITALS: BP 157/72
--- NOTE | 2017-05-29 14:49 | PDOC ---
PROGRESS NOTES Chief Complaint Chief Complaint Seizure Syncope ASSESSMENT AND PLAN: 1. Sz d/o: appreciate Dr Irwin's input. EEG apparently neg. 2. Syncope: no evidence of cardiologic etiology (EKG NSR, tele w/o acute events; nl echo, not orthostatic). Consider event monitor at discharge. 3. Hx CVA in November 2016. echo w/o septal defect 4. Accelerated HTN; better controlled with resumption of antiHTN therapy. 5. HLD: on statin 6. DM2: restart home meal dose insulin in addition to levemir 7. UTI: cult with vanco sens enterococcus. on linezolid x 7d 8. CKD: Cr at baseline 9. Hypokalemia/ hypomagnesemia; replace. Monitor lytes. 10. PVD: s/p bilat BKA, carotid stenosis 11. GERD: on PPI 12. Anemia: multifactorial 13. Nauea: new this AM. no vomiting. zofran PRN 14. Dispo: d/c on oral Abx (linezolid) x1 week; OT rec.s SNF, pt declines History of Present Illness History of Present Illness Nausea resolved, PO intake remains poor. Vitals Vitals Vital Signs Date Time Temp Pulse Resp B/P (MAP) Pulse Ox O2 Delivery O2 Flow Rate FiO2 05/29/17 11:34 98.7 78 17 161/80 (107) 100 98.7 05/29/17 08:00 Room Air Physical Exam General: Alert, Cooperative, No acute distress Heart: Regular rate Lungs: Clear Abdomen: Normal bowel sounds, Soft, No tenderness Extremities: No clubbing, No edema Skin: No rashes Labs LABS Laboratory Tests Test 05/28/17 16:53 05/28/17 20:56 05/29/17 06:00 05/29/17 07:13 Glucose (Fingerstick) 177 mg/dL (70-99) 91 mg/dL (70-99) 229 mg/dL (70-99) White Blood Count 8.1 x10^3/uL (4.0-11.0) Red Blood Count 2.84 x10^6/uL (4.30-5.70) Hemoglobin 8.3 g/dL (13.0-17.5) Hematocrit 24.4 % (39.0-53.0) Mean Corpuscular Volume 86 fL (79-100) Mean Corpuscular Hemoglobin 29 pg (25-35) Mean Corpuscular Hemoglobin Concent 34 g/dL (31-37) Red Cell Distribution Width 15.4 % (11.5-14.5) Platelet Count 182 x10^3/uL (140-400) Neutrophils (%) (Auto) 57 % (31-73) Lymphocytes (%) (Auto) 35 % (24-48) Monocytes (%) (Auto) 5 % (0-9) Eosinophils (%) (Auto) 3 % (0-3) Basophils (%) (Auto) 0 % (0-3) Neutrophils # (Auto) 4.6 x10^3uL (1.8-7.7) Lymphocytes # (Auto) 2.8 x10^3/uL (1.0-4.8) Monocytes # (Auto) 0.4 x10^3/uL (0.0-1.1) Eosinophils # (Auto) 0.2 x10^3/uL (0.0-0.7) Basophils # (Auto) 0.0 x10^3/uL (0.0-0.2) Sodium Level 140 mmol/L (136-145) Potassium Level 3.9 mmol/L (3.5-5.1) Chloride Level 108 mmol/L (98-107) Carbon Dioxide Level 25 mmol/L (21-32) Anion Gap 7 (6-14) Blood Urea Nitrogen 33 mg/dL (8-26) Creatinine 1.6 mg/dL (0.7-1.3) Estimated GFR (Cockcroft-Gault) 54.2 Glucose Level 266 mg/dL (70-99) Calcium Level 8.3 mg/dL (8.5-10.1) CHRISTIAN ROBERTS MD May 29, 2017 14:49
[2017-05-29 19:54] VITALS: BP 149/86
[2017-05-29] MEDS: TAMSULOSIN 0.4 MG CAP.ER.24H. PO SCH (21:50)
[2017-05-29] MEDS: ATORVASTATIN CALCIUM 40 MG TABLET. PO SCH (21:50)
[2017-05-29] MEDS: INSULIN DETEMIR 300 UNITS/3 ML INSULN.PEN. SQ SCH (22:00)
[2017-05-29 23:00] VITALS: BP 154/77
[2017-05-30 03:51] VITALS: BP 139/76
[2017-05-30 04:36] LABS: BASO % 1 % (0-3); EOS % 3 % (0-3); HEMATOCRIT 22.8 % (39.0-53.0); HEMOGLOBIN 7.8 g/dL (13.0-17.5); LYMPH # 3.1 x10^3/uL (1.0-4.8); LYMPH % 35 % (24-48); MEAN CORPUSCULAR HEMOGLOBIN 30 pg (25-35); MEAN CORPUSCULAR HGB CONC 34 g/dL (31-37); MEAN CORPUSCULAR VOLUME 87 fL (79-100); MONO % 6 % (0-9); NEUT % 55 % (31-73); PLATELET COUNT 190 x10^3/uL (140-400); RED BLOOD COUNT 2.63 x10^6/uL (4.30-5.70); RED CELL DISTRIBUTION WIDTH 15.5 % (11.5-14.5); WHITE BLOOD COUNT 8.7 x10^3/uL (4.0-11.0)
[2017-05-30 05:03] LABS: CALCIUM 8.1 mg/dL (8.5-10.1); CREATININE 1.6 mg/dL (0.7-1.3); GFR 54.2; POTASSIUM 3.7 mmol/L (3.5-5.1)
[2017-05-30 06:50] VITALS: BP 148/76
[2017-05-30] MEDS: CLOPIDOGREL BISULFATE 75 MG TABLET PO SCH (08:34)
[2017-05-30] MEDS: levETIRAcetam 500 MG TABLET PO SCH (08:34)
[2017-05-30 08:35] VITALS: BP 148/76
[2017-05-30] MEDS: LINEZOLID 600 MG TABLET PO SCH (08:35)
[2017-05-30] MEDS: LOSARTAN POTASSIUM 50 MG TABLET. PO SCH (08:35)
[2017-05-30] MEDS: INSULIN ASPART 300 UNITS/3 ML INSULN.PEN SQ SCH ×4 (08:49→12:42)
[2017-05-30] MEDS ORDERED: LEVE500T56 PO (09:36)
[2017-05-30] MEDS ORDERED: LOSA50TA2 PO (09:36)
[2017-05-30] MEDS ORDERED: LINE600T PO (09:36)
[2017-05-30] MEDS ORDERED: TAMS0.4C97 PO (09:36)
--- NOTE | 2017-05-30 11:56 | PDOC ---
Renal-Progress Notes Subjective Notes Notes STABLE History of Present Illness Hx of present illness STABLE Vitals Vitals Vital Signs Date Time Temp Pulse Resp B/P (MAP) Pulse Ox O2 Delivery O2 Flow Rate FiO2 05/30/17 08:35 75 148/76 05/30/17 08:00 Room Air 05/30/17 06:50 98.7 20 100 98.7 Weight Weight [ ] Labs Labs Laboratory Tests Test 05/29/17 17:00 05/29/17 21:13 05/30/17 04:05 05/30/17 06:53 Glucose (Fingerstick) 236 mg/dL (70-99) 332 mg/dL (70-99) 280 mg/dL (70-99) White Blood Count 8.7 x10^3/uL (4.0-11.0) Red Blood Count 2.63 x10^6/uL (4.30-5.70) Hemoglobin 7.8 g/dL (13.0-17.5) Hematocrit 22.8 % (39.0-53.0) Mean Corpuscular Volume 87 fL (79-100) Mean Corpuscular Hemoglobin 30 pg (25-35) Mean Corpuscular Hemoglobin Concent 34 g/dL (31-37) Red Cell Distribution Width 15.5 % (11.5-14.5) Platelet Count 190 x10^3/uL (140-400) Neutrophils (%) (Auto) 55 % (31-73) Lymphocytes (%) (Auto) 35 % (24-48) Monocytes (%) (Auto) 6 % (0-9) Eosinophils (%) (Auto) 3 % (0-3) Basophils (%) (Auto) 1 % (0-3) Neutrophils # (Auto) 4.8 x10^3uL (1.8-7.7) Lymphocytes # (Auto) 3.1 x10^3/uL (1.0-4.8) Monocytes # (Auto) 0.5 x10^3/uL (0.0-1.1) Eosinophils # (Auto) 0.2 x10^3/uL (0.0-0.7) Basophils # (Auto) 0.0 x10^3/uL (0.0-0.2) Sodium Level 140 mmol/L (136-145) Potassium Level 3.7 mmol/L (3.5-5.1) Chloride Level 108 mmol/L (98-107) Carbon Dioxide Level 26 mmol/L (21-32) Anion Gap 6 (6-14) Blood Urea Nitrogen 33 mg/dL (8-26) Creatinine 1.6 mg/dL (0.7-1.3) Estimated GFR (Cockcroft-Gault) 54.2 Glucose Level 346 mg/dL (70-99) Calcium Level 8.1 mg/dL (8.5-10.1) Test 05/30/17 11:16 Glucose (Fingerstick) 263 mg/dL (70-99) Micro Micro Microbiology 05/25/17 Urine Culture - Final, Complete 05/25/17 Urine Culture Result 1 ([facility]) - Final, Complete 05/25/17 Antimicrobic Susceptibility - Final, Complete Review of Systems Constitutional: yes: weakness, alert, oriented Ears/Nose/Throat: Yes: no symptom reported Eyes: Yes: no symptom reported Pulmonary: Yes no symptom reported Cardiovascular: Yes no symptom reported Genitourinary: Yes: no symptom reported Musculoskeletal: Yes: muscle stiffness Skin: Yes no symptom reported Psychiatric/Neurological: Yes: no symptom reported Endocrine: Yes: no symptom reported Physical Exam General Appearance: no apparent distress Skin: warm Respiratory: bilateral CTA Heart: S1S2, RRR Abdomen: soft, bowel sounds present Neurology: alert, oriented, follow commands Assessment Assessment IMP SYNCOPE UTI CKD STAGE 3-CR STABLE AT 1.6 HTN-BETTER PLAN STABLE RENAL LABS WILL FOLLOW HUMAIRA ODLEL MD May 30, 2017 11:56
--- NOTE | 2017-05-30 16:07 | PDOC ---
PROGRESS NOTES Assessment Assessment IMPRESSION: Subacute left IC and left frontal lobe infract? Brain masses? Seizure or seizure like episode. Syncope. UTI Anemia. HLD DM Bilateral amputation below the knee. RECOMMENDATIONS/PLAN: Continue Keppra 500 mg bid. Continue Plavix 75 mg daily. Continue Lipitor 40 mg HS. Repeat brain MRI in 3 months to help ruled tumor as suggested per MRI findings. Past Medical History Cardiovascular: HTN CENTRAL NERVOUS SYSTEM: Seizure Heme/Onc: Anemia NOS Renal/: Urinary Incontinence Endocrine: Diabetes Dermatology: Other (pressure ulcer) Past Surgical History Bilateral below the knee amputation. Family History No pertinent hx (negative for seizures) Social History , no alcohol or tobacco, disabled ALLERGY: Reviewed. MEDICATIONS: Refer to [facility] REVIEW OF SYSTEMS: Constitutional: No malnutrition, weight loss, cachexia. Head: No recent traumatic brain or head injury. Skin: No edema, or rash. Ear: No infection. Eyes: No vision loss, or diplopia. Nose: No bleeding or purulent discharges. Hearing: No hearing decrease. Neck: No injury.. Cardiac: HLD Pulmonary: No pneumonia,. GI: No GI Ulcer, GI bleeding, Urinary/genital: UTI. Endocrine: Diabetes Mellitus. Skeletomuscular: bilateral amputation below the knee. Neurological: see HP. Psychiatric: Denies drug use/abuse. Otherwise, not [id number] review of systems. PHYSICAL EXAMINATION: General appearance in no acute distress. HEENT: Normocephalic and nontraumatic. Eyes, nose, ears, and throat are unremarkable. Hearing decrease. Neck is supple. No lymphadenopathy. No Crepitus. Cardiovascular: S1, S2, regular rate and rhythm. Pulmonary: Clear to auscultation bilaterally. Abdomen: Bowel sounds are positive. Extremities: No rash, lesions, or edema. NEUROLOGICAL EXAMINATION: Awake. Oriented to time, place and person. PERRL. EOMI. CN: no focal findings. Muscle tone: within normal. Muscle strength: 5 UE. LE amputated. DTR: 2 UE Plantar reflex: LE amputated. Gait: Unable to walk. Sensory exam: no acute abnormal findings. No cerebellar signs elicited. F-T-N test fine. Objective Objective Vital Signs Date Time Temp Pulse Resp B/P (MAP) Pulse Ox O2 Delivery O2 Flow Rate FiO2 05/30/17 08:35 75 148/76 05/30/17 08:00 Room Air 05/30/17 06:50 98.7 20 100 98.7 Vitals Signs Vitals VS - Last 72 Hours, by Label Date Time Temp Pulse Resp B/P (MAP) Pulse Ox O2 Delivery O2 Flow Rate FiO2 05/30/17 08:35 75 148/76 05/30/17 08:00 Room Air 05/30/17 06:50 98.7 75 20 148/76 (100) 100 Room Air 98.7 05/30/17 03:51 97.9 79 16 139/76 (97) 98 Room Air 97.9 05/29/17 23:00 97.4 79 16 154/77 (102) 98 Room Air 97.4 05/29/17 20:20 Room Air 05/29/17 19:54 98.7 72 16 149/86 (107) 98 Room Air 98.7 05/29/17 14:48 98.9 70 18 157/72 (100) 100 98.9 05/29/17 11:34 98.7 78 17 161/80 (107) 100 98.7 05/29/17 08:38 77 170/88 05/29/17 08:00 Room Air Laboratory Laboratory Laboratory Tests Test 05/29/17 17:00 05/29/17 21:13 05/30/17 04:05 05/30/17 06:53 Glucose (Fingerstick) 236 mg/dL (70-99) 332 mg/dL (70-99) 280 mg/dL (70-99) White Blood Count 8.7 x10^3/uL (4.0-11.0) Red Blood Count 2.63 x10^6/uL (4.30-5.70) Hemoglobin 7.8 g/dL (13.0-17.5) Hematocrit 22.8 % (39.0-53.0) Mean Corpuscular Volume 87 fL (79-100) Mean Corpuscular Hemoglobin 30 pg (25-35) Mean Corpuscular Hemoglobin Concent 34 g/dL (31-37) Red Cell Distribution Width 15.5 % (11.5-14.5) Platelet Count 190 x10^3/uL (140-400) Neutrophils (%) (Auto) 55 % (31-73) Lymphocytes (%) (Auto) 35 % (24-48) Monocytes (%) (Auto) 6 % (0-9) Eosinophils (%) (Auto) 3 % (0-3) Basophils (%) (Auto) 1 % (0-3) Neutrophils # (Auto) 4.8 x10^3uL (1.8-7.7) Lymphocytes # (Auto) 3.1 x10^3/uL (1.0-4.8) Monocytes # (Auto) 0.5 x10^3/uL (0.0-1.1) Eosinophils # (Auto) 0.2 x10^3/uL (0.0-0.7) Basophils # (Auto) 0.0 x10^3/uL (0.0-0.2) Sodium Level 140 mmol/L (136-145) Potassium Level 3.7 mmol/L (3.5-5.1) Chloride Level 108 mmol/L (98-107) Carbon Dioxide Level 26 mmol/L (21-32) Anion Gap 6 (6-14) Blood Urea Nitrogen 33 mg/dL (8-26) Creatinine 1.6 mg/dL (0.7-1.3) Estimated GFR (Cockcroft-Gault) 54.2 Glucose Level 346 mg/dL (70-99) Calcium Level 8.1 mg/dL (8.5-10.1) Test 05/30/17 11:16 Glucose (Fingerstick) 263 mg/dL (70-99) Microbiology 05/25/17 Urine Culture - Final, Complete 05/25/17 Urine Culture Result 1 ([facility]) - Final, Complete 05/25/17 Antimicrobic Susceptibility - Final, Complete Comment Review of Relevant I have reviewed the following items yobani (where applicable) has been applied. MERT MAGANA MD May 30, 2017 16:07
--- NOTE | 2017-05-30 17:16 | DS ---
DATE OF DISCHARGE: 05/30/2017 CHIEF COMPLAINT: Seizure, syncope. HOSPITAL COURSE: This is a 56-year-old gentleman with end-stage renal disease, diabetes and multiple other medical issues including peripheral vascular disease status post bilateral below-knee amputation, who presented after seizure and syncope at dialysis. For both he was seen by Neurology. EEG was negative, but nevertheless he was started on Keppra. Syncope was evaluated by Cardiology as well, and no arrhythmia or other etiology was noted. He was not orthostatic. Event monitoring after discharge was considered. The patient was diagnosed with a urinary tract infection, which was determined to be vancomycin sensitive enterococcus. He was started on linezolid to allow him return to home. He is scheduled for 7 days completion at home. All his other medical issues essentially remained stable. An episode of nausea and vomiting delayed discharge, which was finally accomplished on 05/30/2017. PHYSICAL EXAMINATION: VITAL SIGNS: Show blood pressure of 161/80, heart rate of 78, respiratory rate at 18. He is afebrile. GENERAL: This is a cachectic appearing gentleman, alert and oriented, no acute distress. LUNGS: Clear. HEART: Regular rate and rhythm. ABDOMEN: Has positive bowel sounds, soft, nontender. EXTREMITIES: Show bilateral below-knee amputation with wound over anterior left knee, superficial abrasions. DISCHARGE DATE: 05/30/2017. DISCHARGE DIAGNOSES: Syncope, seizures, urinary tract infection. DISCHARGE DISPOSITION: To home with home health. DISCHARGE CONDITION: Improved. DISCHARGE MEDICATIONS: Please refer to MAR. DISCHARGE INSTRUCTIONS: The patient will follow up with dialysis as previously arranged. Greater than 30 minutes were spent in arranging discharge. CHRISTIAN ROBERTS MD DR: ESTHELA/nts JOB#: [id number] / [id number] MAITE
== END 2017-05-30 15:35 | disposition home health service (06) | DRG 100 ==
LOC: ER 09:56 → 6 SOUTH 12:44
PROVIDERS: ADMIT Internal Medicine; ATTEND Internal Medicine
DX: G40.909 Epilepsy, unspecified, not intractable, without status epilepticus (principal); E43 Unspecified severe protein-calorie malnutrition; N18.6 End stage renal disease; I31.3 Pericardial effusion (noninflammatory); E11.22 Type 2 diabetes mellitus with diabetic chronic kidney disease; E11.51 Type 2 diabetes mellitus with diabetic peripheral angiopathy without gangrene; N39.0 Urinary tract infection, site not specified; N13.30 Unspecified hydronephrosis; R56.9 Unspecified convulsions; E11.65 Type 2 diabetes mellitus with hyperglycemia; R55 Syncope and collapse; E83.42 Hypomagnesemia; I12.9 Hypertensive chronic kidney disease with stage 1 through stage 4 chronic kidney disease, or unspecified chronic kidney disease; D64.9 Anemia, unspecified; E78.5 Hyperlipidemia, unspecified; E87.6 Hypokalemia; I51.7 Cardiomegaly; I65.29 Occlusion and stenosis of unspecified carotid artery; K21.9 Gastro-esophageal reflux disease without esophagitis; M19.90 Unspecified osteoarthritis, unspecified site; R32 Unspecified urinary incontinence; Z79.02 Long term (current) use of antithrombotics/antiplatelets; Z79.899 Other long term (current) drug therapy; Z82.49 Family history of ischemic heart disease and other diseases of the circulatory system; Z83.3 Family history of diabetes mellitus; Z86.73 Personal history of transient ischemic attack (TIA), and cerebral infarction without residual deficits; Z87.440 Personal history of urinary (tract) infections; Z89.511 Acquired absence of right leg below knee; Z89.512 Acquired absence of left leg below knee; Z99.2 Dependence on renal dialysis; Z99.3 Dependence on wheelchair; Z88.8 Allergy status to other drugs, medicaments and biological substances
CPT/HCPCS: 99285; C8929; 36415; 70450; 70553; 71010; 80048; 80053; 80061; 81001; 82553; 82962; 83735; 84100; 84443; 84484; 85025; 85610; 85730; 87086; 87186; 87641; 90732; 93005; 93880; 95816; 96360; A9585; J0744; J1815; J2405; J3475; J7030; 92610; 97535

== ENCOUNTER 2017-07-11 17:40 | Inpatient (IN) | payer OTHER ==
[~2017-07-11] VITALS: Ht 200.7 cm; Wt 75.7 kg
[~2017-07-11 17:40] MED LIST changes: +ATORVASTATIN CA80 MG PO; +CLOP75TA PO; +LEVE500T56 PO; +LINE600T PO; +LOSA50TA2 PO; +METF500T4 PO
[2017-07-11] MEDS ORDERED: IV NORMAL SALINE 1000ML BAG 1,000 ML IV ONE (18:00)
[2017-07-11 18:08] LABS: BILIRUBIN,URINE NEGATIVE (NEG); GLUCOSE,URINE >=1000 mg/dL (NEG); NITRITE,URINE POSITIVE (NEG); PROTEIN,URINE >=300 mg/dL (NEG-TRACE); UROBILINOGEN,URINE 0.2 mg/dL (0.2 mg/dL)
[2017-07-11 18:09] LABS: BASO % 0 % (0-3); EOS % 3 % (0-3); LYMPH # 2.5 x10^3/uL (1.0-4.8); LYMPH % 31 % (24-48); MEAN CORPUSCULAR HEMOGLOBIN 30 pg (25-35); MEAN CORPUSCULAR HGB CONC 34 g/dL (31-37); MEAN CORPUSCULAR VOLUME 87 fL (79-100); MONO % 5 % (0-9); NEUT % 61 % (31-73); PLATELET COUNT 175 x10^3/uL (140-400); RED CELL DISTRIBUTION WIDTH 15.5 % (11.5-14.5); WHITE BLOOD COUNT 8.2 x10^3/uL (4.0-11.0)
[2017-07-11 18:13] LABS: HEMOGLOBIN 6.5 g/dL (13.0-17.5)
[2017-07-11 18:15] LABS: CREATININE 1.3 mg/dL (0.7-1.3); GFR 68.8; POTASSIUM 3.4 mmol/L (3.5-5.1)
[2017-07-11 18:44] LABS: BACTERIA,URINE MANY /HPF (0-FEW); SQUAMOUS EPITHELIAL CELL,UR OCC /LPF
[2017-07-11] MEDS ORDERED: INSULIN REGULAR 100 UNIT/ML 10ML VIAL. IV ONE (19:00)
--- NOTE | 2017-07-11 19:18 | HP ---
ADMIT DATE: 07/11/2017 CHIEF COMPLAINT: Nonhealing wounds, hyperglycemia. HISTORY OF PRESENT ILLNESS: The patient is a pleasant 56-year-old male well known to our service. He has bilateral lower extremity [id number] amputations. He has been at [facility] doing wound care, but now they are progressing, are bleeding and they might be infected. While he got to the ER, he is noted to have a hemoglobin of 6.5 and his glucose is 500. I have discussed the case with ER physician. We are going to admit the patient, give him some IV insulin and transfusing and do some wound management. PAST MEDICAL HISTORY: [id number] amputations bilaterally, nonhealing wounds of the stumps, diabetes, hypertension, hyperlipidemia. ALLERGIES: None. FAMILY HISTORY: Diabetes. SOCIAL HISTORY: He does not drink, smoke or take drugs. MEDICATIONS: Reviewed. REVIEW OF SYSTEMS: GENERAL: No history of weight change, weakness or fevers. SKIN: No bruising, hair changes or rashes. EYES: No blurred, double or loss of vision. NOSE AND THROAT: No history of nosebleeds, hoarseness or sore throat. HEART: No history of palpitations, chest pain or shortness of breath on exertion. LUNGS: Denies cough, hemoptysis, wheezing or shortness of breath. GASTROINTESTINAL: Denies changes in appetite, nausea, vomiting, diarrhea or constipation. GENITOURINARY: No history of frequency, urgency, hesitancy or nocturia. NEUROLOGIC: Denies history of numbness, tingling, tremor or weakness. PSYCHIATRIC: No history of panic, anxiety or depression. ENDOCRINE: No history of heat or cold intolerance, polyuria or polydipsia. EXTREMITIES: He complains of nonhealing wounds on his stumps. PHYSICAL EXAMINATION: VITAL SIGNS: Temperature afebrile, pulse 98, respirations 18, blood pressure 142/90. GENERAL: He is alert, cooperative. HEART: Normal S1, S2. LUNGS: Clear. ABDOMEN: Soft. EXTREMITIES: He has got lower extremity bilateral [id number] amputations. Both of them are dressed, but there is blood coming out of the right one. ENDOCRINE: No thyromegaly. LYMPHATICS: No cervical nodes. HEMATOPOIETIC: No bruising. ASSESSMENT AND PLAN: Hyperglycemia with acute on chronic anemia, nonhealing wounds, probable infection. The patient has been admitted. We will start IV insulin. Transfuse 2 units, IV antibiotics, wound care, home meds, PT, OT. PROGNOSIS: Guarded. WILLIAM CHRIS DO DR: Jennifer JOB#: [id number] / [id number]
--- NOTE | 2017-07-11 19:47 | PHYS DOC ---
Past Medical History Past Medical History: CHF, CVA, Diabetes-Type II, GERD, High Cholesterol, Hypertension, Renal Disease, UTI, Vascular Disease Past Surgical History: Other Additional Past Surgical Histo: HENRRY. BKA Alcohol Use: None Drug Use: None Adult General Chief Complaint Chief Complaint: Not taking meds, nonhealing wound HPI HPI Patient is a 56 year old male who presents with increased pain in R stump and nonhealing wound. Pt presents via EMS from [place] where they report pt has been noncompliant with his medications, including his insulin and antibiotics. Pt has wound care at the facility. He reports ongoing pain of the R stump, no reported drainage. Left stump is doing better. Pt can't explain why he's been refusing medications. No reports of fevers. Review of Systems Review of Systems Constitutional: Denies fever or chills [] Eyes: Denies change in visual acuity, redness, or eye pain [] HENT: Denies nasal congestion or sore throat [] Respiratory: Denies cough or shortness of breath [] Cardiovascular: No additional information not addressed in HPI [] GI: Denies abdominal pain, nausea, vomiting, bloody stools or diarrhea [] : Denies dysuria or hematuria [] Musculoskeletal:per hpi Integument: Denies rash or skin lesions [] Neurologic: Denies headache, focal weakness or sensory changes [] All other systems were reviewed and found to be within normal limits, except as documented in this note. Current Medications Current Medications Current Medications Medications (Trade) Dose Ordered Sig/Akua Start Time Stop Time Status Last Admin Dose Admin Sodium Chloride 1,000 ml @ 1,000 mls/hr 1X ONCE 07/11/17 18:00 07/11/17 18:59 DC 07/11/17 18:11 1,000 MLS/HR Allergies Allergies Allergies Coded Allergies Type Severity Reaction Last Updated Verified I S O L A T I O N *CONTACT* Allergy Unknown 12/28/16 Yes aspirin Adverse Reaction Intermediate Nausea and Vomiting, GI BLEED 12/28/16 Yes Physical Exam Physical Exam Constitutional: Well developed, well nourished, no acute distress, non-toxic appearance. [] HENT: Normocephalic, atraumatic, bilateral external ears normal, oropharynx dry , no oral exudates, nose normal. [] Eyes: PERRLA, EOMI, conjunctiva normal, no discharge. [] Neck: Normal range of motion, no tenderness, supple, no stridor. [] Cardiovascular:Heart rate regular with regular rhythm, no murmur [] Lungs & Thorax: Bilateral breath sounds clear to auscultation [] Abdomen: Bowel sounds normal, soft, no tenderness, no masses, no pulsatile masses. [] Skin: Warm, dry, no erythema, no rash. [] Back: No tenderness, no CVA tenderness. [] Extremities: bilateral lower extremity BKA with left stump dressing in place, R stump dressing removed with open wound, no drainage, no significant surrounding erythema, bilateral stumps soft. Neurologic: Alert and oriented , normal motor function, normal sensory function , no focal deficits noted. [] Current Patient Data Vital Signs Vital Signs Date Time Temp Pulse Resp B/P (MAP) Pulse Ox O2 Delivery O2 Flow Rate FiO2 07/11/17 17:45 98.9 78 18 179/92 (121) 98 Room Air 98.9 Lab Values Laboratory Tests Test 07/11/17 17:52 White Blood Count 8.2 x10^3/uL (4.0-11.0) Red Blood Count 2.20 x10^6/uL (4.30-5.70) L Hemoglobin 6.5 g/dL (13.0-17.5) *L Hematocrit 19.0 % (39.0-53.0) *L Mean Corpuscular Volume 87 fL (79-100) Mean Corpuscular Hemoglobin 30 pg (25-35) Mean Corpuscular Hemoglobin Concent 34 g/dL (31-37) Red Cell Distribution Width 15.5 % (11.5-14.5) H Platelet Count 175 x10^3/uL (140-400) Neutrophils (%) (Auto) 61 % (31-73) Lymphocytes (%) (Auto) 31 % (24-48) Monocytes (%) (Auto) 5 % (0-9) Eosinophils (%) (Auto) 3 % (0-3) Basophils (%) (Auto) 0 % (0-3) Neutrophils # (Auto) 5.0 x10^3uL (1.8-7.7) Lymphocytes # (Auto) 2.5 x10^3/uL (1.0-4.8) Monocytes # (Auto) 0.4 x10^3/uL (0.0-1.1) Eosinophils # (Auto) 0.2 x10^3/uL (0.0-0.7) Basophils # (Auto) 0.0 x10^3/uL (0.0-0.2) Urine Color Yellow Urine Clarity Cloudy Urine pH 7.0 Urine Specific [place] 1.015 Urine Protein >=300 mg/dL (NEG-TRACE) Urine Glucose (UA) >=1000 mg/dL (NEG) Urine Ketones (Stick) Negative mg/dL (NEG) Urine Blood Large (NEG) Urine Nitrite Positive (NEG) Urine Bilirubin Negative (NEG) Urine Urobilinogen Dipstick 0.2 mg/dL (0.2 mg/dL) Urine Leukocyte Esterase Large (NEG) Urine RBC 6-10 /HPF (0-2) Urine WBC 11-20 /HPF (0-4) Urine Squamous Epithelial Cells Occ /LPF Urine Bacteria Many /HPF (0-FEW) Sodium Level 137 mmol/L (136-145) Potassium Level 3.4 mmol/L (3.5-5.1) L Chloride Level 106 mmol/L (98-107) Carbon Dioxide Level 24 mmol/L (21-32) Anion Gap 7 (6-14) Blood Urea Nitrogen 23 mg/dL (8-26) Creatinine 1.3 mg/dL (0.7-1.3) Estimated GFR (Cockcroft-Gault) 68.8 Glucose Level 378 mg/dL (70-99) H Calcium Level 8.0 mg/dL (8.5-10.1) L Laboratory Tests 07/11/17 17:52 Laboratory Tests 07/11/17 17:52 EKG EKG [] Radiology/Procedures Radiology/Procedures R knee 3 view reviewed by me, no gas formation, no acute bony abnormality, interpreted by me.[] Course & Med Decision Making Course & Med Decision Making Pertinent Labs and Imaging studies reviewed. (See chart for details) pt with critically low hgb, dropped from last month. 1 unit PRBCs ordered, pt received 1 L NS and 10units regular insulin. Pt admitted to Dr. Hope for further management. Total critical care time 32 minutes Yazmin Disclaimer Dragon Disclaimer This electronic medical record was generated, in whole or in part, using a voice recognition dictation system. Departure Departure Impression: Primary Impression: Hyperglycemia Additional Impression: Anemia Disposition: 09 ADMITTED INPATIENT Condition: GUARDED Referrals: NO PCP (PCP) Problem Qualifiers TONY ANDRADE MD Jul 11, 2017 19:47
[2017-07-11 19:56] VITALS: BP 167/84
[2017-07-11 20:55] VITALS: BP 167/89
[2017-07-11 21:50] VITALS: BP 171/82
[2017-07-11] MEDS ORDERED: INSU100I13 SQ (22:15)
[2017-07-11] MEDS ORDERED: ACET325T9 PO (22:15)
[2017-07-11] MEDS ORDERED: LOSA50TA6 PO (22:15)
[2017-07-11] MEDS ORDERED: DOCU-109 PO (22:15)
[2017-07-11] MEDS ORDERED: INSU200I SQ (22:15)
[2017-07-11 22:55] VITALS: BP 166/85
[2017-07-11 23:10] VITALS: BP 157/80
[2017-07-12] VITALS (7 sets, daily range): BP systolic 134–165; BP diastolic 65–88
[2017-07-12 04:19] LABS: BASO % 0 % (0-3); EOS % 3 % (0-3); HEMATOCRIT 24.1 % (39.0-53.0); HEMOGLOBIN 8.3 g/dL (13.0-17.5); LYMPH # 2.8 x10^3/uL (1.0-4.8); LYMPH % 35 % (24-48); MEAN CORPUSCULAR HEMOGLOBIN 30 pg (25-35); MEAN CORPUSCULAR HGB CONC 35 g/dL (31-37); MEAN CORPUSCULAR VOLUME 88 fL (79-100); MONO % 6 % (0-9); NEUT % 56 % (31-73); PLATELET COUNT 164 x10^3/uL (140-400); RED BLOOD COUNT 2.75 x10^6/uL (4.30-5.70); RED CELL DISTRIBUTION WIDTH 15.5 % (11.5-14.5)
[2017-07-12 04:47] LABS: CALCIUM 7.9 mg/dL (8.5-10.1); CREATININE 1.1 mg/dL (0.7-1.3); GFR 83.5; POTASSIUM 3.3 mmol/L (3.5-5.1)
--- NOTE | 2017-07-12 08:57 | RAD ---
EXAM: Right knee, 3 views HISTORY: Right knee pain. Nonhealing wound. COMPARISON: None. FINDINGS: There are changes of bone density amputation. A large sclerotic region within the distal femoral metaphysis spans 9.5 cm and is consistent with a chronic bone infarct. No acute fractures are seen. There is irregularity of the soft tissues at the distal stump, but no clear acute osteomyelitis by radiographs. There is at least mild lateral compartmental joint space narrowing. Alignment is maintained. A Pelligrini-Stieda lesion is noted. There is no joint effusion. Diffuse atherosclerotic calcifications are noted. IMPRESSION: 1. No clear acute osteomyelitis by radiographs. 2. 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
[2017-07-12] MEDS ORDERED: HYDROcodone/APAP 5/325MG 1 TAB TABLET PO PRN (13:00)
[2017-07-12] MEDS ORDERED: INSU100I11 SQ (13:06)
--- NOTE | 2017-07-12 14:52 | PDOC ---
PROGRESS NOTES Chief Complaint Chief Complaint infection/ cellulitis of leg wounds History of Present Illness History of Present Illness EXAM: Right knee, 3 views HISTORY: Right knee pain. Nonhealing wound. COMPARISON: None. FINDINGS: There are changes of bone density amputation. A large sclerotic region within the distal femoral metaphysis spans 9.5 cm and is consistent with a chronic bone infarct. No acute fractures are seen. There is irregularity of the soft tissues at the distal stump, but no clear acute osteomyelitis by radiographs. There is at least mild lateral compartmental joint space narrowing. Alignment is maintained. A Pelligrini-Stieda lesion is noted. There is no joint effusion. Diffuse atherosclerotic calcifications are noted. IMPRESSION: 1. No clear acute osteomyelitis by radiographs. 2. 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 Vitals Vitals Vital Signs Date Time Temp Pulse Resp B/P (MAP) Pulse Ox O2 Delivery O2 Flow Rate FiO2 07/12/17 14:47 98.2 86 17 145/65 (91) 98 Room Air 98.2 Physical Exam Physical Exam SOCIAL HISTORY: He does not drink, smoke or take drugs. MEDICATIONS: Reviewed. REVIEW OF SYSTEMS: GENERAL: No history of weight change, weakness or fevers. SKIN: No bruising, hair changes or rashes. EYES: No blurred, double or loss of vision. NOSE AND THROAT: No history of nosebleeds, hoarseness or sore throat. HEART: No history of palpitations, chest pain or shortness of breath on exertion. LUNGS: Denies cough, hemoptysis, wheezing or shortness of breath. GASTROINTESTINAL: Denies changes in appetite, nausea, vomiting, diarrhea or constipation. GENITOURINARY: No history of frequency, urgency, hesitancy or nocturia. NEUROLOGIC: Denies history of numbness, tingling, tremor or weakness. PSYCHIATRIC: No history of panic, anxiety or depression. ENDOCRINE: No history of heat or cold intolerance, polyuria or polydipsia. EXTREMITIES: He complains of nonhealing wounds on his stumps. 14 pt ros otherwise neg PHYSICAL EXAMINATION: VITAL SIGNS: Temperature afebrile, pulse 94, respirations 18, blood pressure 145/65 GENERAL: He is alert, cooperative. oriented HEART: Normal S1, S2. LUNGS: Clear. ABDOMEN: Soft. EXTREMITIES: lower extremity bilateral awara-tia-loft amputations. Both of them are dressed, drainage coming out of the right ENDOCRINE: No thyromegaly. LYMPHATICS: No cervical nodes. HEMATOPOIETIC: No bruising. ASSESSMENT AND PLAN: Hyperglycemia with acute on chronic anemia, nonhealing wounds, probable infection. The patient has been admitted. We will start IV insulin. Transfuse 2 units, IV antibiotics, wound care, home meds, PT, OT. PROGNOSIS: Guarded. Lungs: Clear Labs LABS Laboratory Tests Test 07/11/17 17:52 07/12/17 03:30 White Blood Count 8.2 x10^3/uL (4.0-11.0) 8.0 x10^3/uL (4.0-11.0) Red Blood Count 2.20 x10^6/uL (4.30-5.70) 2.75 x10^6/uL (4.30-5.70) Hemoglobin 6.5 g/dL (13.0-17.5) 8.3 g/dL (13.0-17.5) Hematocrit 19.0 % (39.0-53.0) 24.1 % (39.0-53.0) Mean Corpuscular Volume 87 fL (79-100) 88 fL (79-100) Mean Corpuscular Hemoglobin 30 pg (25-35) 30 pg (25-35) Mean Corpuscular Hemoglobin Concent 34 g/dL (31-37) 35 g/dL (31-37) Red Cell Distribution Width 15.5 % (11.5-14.5) 15.5 % (11.5-14.5) Platelet Count 175 x10^3/uL (140-400) 164 x10^3/uL (140-400) Neutrophils (%) (Auto) 61 % (31-73) 56 % (31-73) Lymphocytes (%) (Auto) 31 % (24-48) 35 % (24-48) Monocytes (%) (Auto) 5 % (0-9) 6 % (0-9) Eosinophils (%) (Auto) 3 % (0-3) 3 % (0-3) Basophils (%) (Auto) 0 % (0-3) 0 % (0-3) Neutrophils # (Auto) 5.0 x10^3uL (1.8-7.7) 4.5 x10^3uL (1.8-7.7) Lymphocytes # (Auto) 2.5 x10^3/uL (1.0-4.8) 2.8 x10^3/uL (1.0-4.8) Monocytes # (Auto) 0.4 x10^3/uL (0.0-1.1) 0.4 x10^3/uL (0.0-1.1) Eosinophils # (Auto) 0.2 x10^3/uL (0.0-0.7) 0.2 x10^3/uL (0.0-0.7) Basophils # (Auto) 0.0 x10^3/uL (0.0-0.2) 0.0 x10^3/uL (0.0-0.2) Urine Color Yellow Urine Clarity Cloudy Urine pH 7.0 Urine Specific [place] 1.015 Urine Protein >=300 mg/dL (NEG-TRACE) Urine Glucose (UA) >=1000 mg/dL (NEG) Urine Ketones (Stick) Negative mg/dL (NEG) Urine Blood Large (NEG) Urine Nitrite Positive (NEG) Urine Bilirubin Negative (NEG) Urine Urobilinogen Dipstick 0.2 mg/dL (0.2 mg/dL) Urine Leukocyte Esterase Large (NEG) Urine RBC 6-10 /HPF (0-2) Urine WBC 11-20 /HPF (0-4) Urine Squamous Epithelial Cells Occ /LPF Urine Bacteria Many /HPF (0-FEW) Sodium Level 137 mmol/L (136-145) 140 mmol/L (136-145) Potassium Level 3.4 mmol/L (3.5-5.1) 3.3 mmol/L (3.5-5.1) Chloride Level 106 mmol/L (98-107) 109 mmol/L (98-107) Carbon Dioxide Level 24 mmol/L (21-32) 24 mmol/L (21-32) Anion Gap 7 (6-14) 7 (6-14) Blood Urea Nitrogen 23 mg/dL (8-26) 20 mg/dL (8-26) Creatinine 1.3 mg/dL (0.7-1.3) 1.1 mg/dL (0.7-1.3) Estimated GFR (Cockcroft-Gault) 68.8 83.5 Glucose Level 378 mg/dL (70-99) 222 mg/dL (70-99) Calcium Level 8.0 mg/dL (8.5-10.1) 7.9 mg/dL (8.5-10.1) Assessment and Plan Assessmemt and Plan Problems Medical Problems: (1) Hyperglycemia Status: Acute ASSESSMENT AND PLAN: Hyperglycemia with acute on chronic anemia, nonhealing wounds, infection. UTI . We will start IV insulin. Transfuse 2 units, IV antibiotics , iv zosyn pharmacy will dose, wound care, home meds, PT, OT. PROGNOSIS: Guarded. Problems: (1) Uncontrolled diabetes mellitus (2) Hyperglycemia due to type 1 diabetes mellitus Comment Review of Relevant I have reviewed the following items yobani (where applicable) has been applied. Labs Laboratory Tests Test 07/11/17 17:52 07/12/17 03:30 White Blood Count 8.2 x10^3/uL (4.0-11.0) 8.0 x10^3/uL (4.0-11.0) Red Blood Count 2.20 x10^6/uL (4.30-5.70) 2.75 x10^6/uL (4.30-5.70) Hemoglobin 6.5 g/dL (13.0-17.5) 8.3 g/dL (13.0-17.5) Hematocrit 19.0 % (39.0-53.0) 24.1 % (39.0-53.0) Mean Corpuscular Volume 87 fL (79-100) 88 fL (79-100) Mean Corpuscular Hemoglobin 30 pg (25-35) 30 pg (25-35) Mean Corpuscular Hemoglobin Concent 34 g/dL (31-37) 35 g/dL (31-37) Red Cell Distribution Width 15.5 % (11.5-14.5) 15.5 % (11.5-14.5) Platelet Count 175 x10^3/uL (140-400) 164 x10^3/uL (140-400) Neutrophils (%) (Auto) 61 % (31-73) 56 % (31-73) Lymphocytes (%) (Auto) 31 % (24-48) 35 % (24-48) Monocytes (%) (Auto) 5 % (0-9) 6 % (0-9) Eosinophils (%) (Auto) 3 % (0-3) 3 % (0-3) Basophils (%) (Auto) 0 % (0-3) 0 % (0-3) Neutrophils # (Auto) 5.0 x10^3uL (1.8-7.7) 4.5 x10^3uL (1.8-7.7) Lymphocytes # (Auto) 2.5 x10^3/uL (1.0-4.8) 2.8 x10^3/uL (1.0-4.8) Monocytes # (Auto) 0.4 x10^3/uL (0.0-1.1) 0.4 x10^3/uL (0.0-1.1) Eosinophils # (Auto) 0.2 x10^3/uL (0.0-0.7) 0.2 x10^3/uL (0.0-0.7) Basophils # (Auto) 0.0 x10^3/uL (0.0-0.2) 0.0 x10^3/uL (0.0-0.2) Urine Color Yellow Urine Clarity Cloudy Urine pH 7.0 Urine Specific [place] 1.015 Urine Protein >=300 mg/dL (NEG-TRACE) Urine Glucose (UA) >=1000 mg/dL (NEG) Urine Ketones (Stick) Negative mg/dL (NEG) Urine Blood Large (NEG) Urine Nitrite Positive (NEG) Urine Bilirubin Negative (NEG) Urine Urobilinogen Dipstick 0.2 mg/dL (0.2 mg/dL) Urine Leukocyte Esterase Large (NEG) Urine RBC 6-10 /HPF (0-2) Urine WBC 11-20 /HPF (0-4) Urine Squamous Epithelial Cells Occ /LPF Urine Bacteria Many /HPF (0-FEW) Sodium Level 137 mmol/L (136-145) 140 mmol/L (136-145) Potassium Level 3.4 mmol/L (3.5-5.1) 3.3 mmol/L (3.5-5.1) Chloride Level 106 mmol/L (98-107) 109 mmol/L (98-107) Carbon Dioxide Level 24 mmol/L (21-32) 24 mmol/L (21-32) Anion Gap 7 (6-14) 7 (6-14) Blood Urea Nitrogen 23 mg/dL (8-26) 20 mg/dL (8-26) Creatinine 1.3 mg/dL (0.7-1.3) 1.1 mg/dL (0.7-1.3) Estimated GFR (Cockcroft-Gault) 68.8 83.5 Glucose Level 378 mg/dL (70-99) 222 mg/dL (70-99) Calcium Level 8.0 mg/dL (8.5-10.1) 7.9 mg/dL (8.5-10.1) Laboratory Tests Test 07/11/17 17:52 07/12/17 03:30 White Blood Count 8.2 x10^3/uL (4.0-11.0) 8.0 x10^3/uL (4.0-11.0) Red Blood Count 2.20 x10^6/uL (4.30-5.70) 2.75 x10^6/uL (4.30-5.70) Hemoglobin 6.5 g/dL (13.0-17.5) 8.3 g/dL (13.0-17.5) Hematocrit 19.0 % (39.0-53.0) 24.1 % (39.0-53.0) Mean Corpuscular Volume 87 fL (79-100) 88 fL (79-100) Mean Corpuscular Hemoglobin 30 pg (25-35) 30 pg (25-35) Mean Corpuscular Hemoglobin Concent 34 g/dL (31-37) 35 g/dL (31-37) Red Cell Distribution Width 15.5 % (11.5-14.5) 15.5 % (11.5-14.5) Platelet Count 175 x10^3/uL (140-400) 164 x10^3/uL (140-400) Neutrophils (%) (Auto) 61 % (31-73) 56 % (31-73) Lymphocytes (%) (Auto) 31 % (24-48) 35 % (24-48) Monocytes (%) (Auto) 5 % (0-9) 6 % (0-9) Eosinophils (%) (Auto) 3 % (0-3) 3 % (0-3) Basophils (%) (Auto) 0 % (0-3) 0 % (0-3) Neutrophils # (Auto) 5.0 x10^3uL (1.8-7.7) 4.5 x10^3uL (1.8-7.7) Lymphocytes # (Auto) 2.5 x10^3/uL (1.0-4.8) 2.8 x10^3/uL (1.0-4.8) Monocytes # (Auto) 0.4 x10^3/uL (0.0-1.1) 0.4 x10^3/uL (0.0-1.1) Eosinophils # (Auto) 0.2 x10^3/uL (0.0-0.7) 0.2 x10^3/uL (0.0-0.7) Basophils # (Auto) 0.0 x10^3/uL (0.0-0.2) 0.0 x10^3/uL (0.0-0.2) Urine Color Yellow Urine Clarity Cloudy Urine pH 7.0 Urine Specific [place] 1.015 Urine Protein >=300 mg/dL (NEG-TRACE) Urine Glucose (UA) >=1000 mg/dL (NEG) Urine Ketones (Stick) Negative mg/dL (NEG) Urine Blood Large (NEG) Urine Nitrite Positive (NEG) Urine Bilirubin Negative (NEG) Urine Urobilinogen Dipstick 0.2 mg/dL (0.2 mg/dL) Urine Leukocyte Esterase Large (NEG) Urine RBC 6-10 /HPF (0-2) Urine WBC 11-20 /HPF (0-4) Urine Squamous Epithelial Cells Occ /LPF Urine Bacteria Many /HPF (0-FEW) Sodium Level 137 mmol/L (136-145) 140 mmol/L (136-145) Potassium Level 3.4 mmol/L (3.5-5.1) 3.3 mmol/L (3.5-5.1) Chloride Level 106 mmol/L (98-107) 109 mmol/L (98-107) Carbon Dioxide Level 24 mmol/L (21-32) 24 mmol/L (21-32) Anion Gap 7 (6-14) 7 (6-14) Blood Urea Nitrogen 23 mg/dL (8-26) 20 mg/dL (8-26) Creatinine 1.3 mg/dL (0.7-1.3) 1.1 mg/dL (0.7-1.3) Estimated GFR (Cockcroft-Gault) 68.8 83.5 Glucose Level 378 mg/dL (70-99) 222 mg/dL (70-99) Calcium Level 8.0 mg/dL (8.5-10.1) 7.9 mg/dL (8.5-10.1) Medications Current Medications Sodium Chloride 1,000 ml @ 1,000 mls/hr 1X ONCE IV Last administered on 07/11 18:11; Start 07/11/17 at 18:00; Stop 07/11/17 at 18:59; Status DC Insulin Human Regular (NovoLIN R VIAL) 10 unit 1X ONCE IV Last administered on 07/11/17 18:56; Start 07/11/17 at 19:00; Stop 07/11/17 at 19:01; Status DC Acetaminophen (Tylenol) 650 mg PRN Q4HRS PRN PO PAIN; Start 07/12/17 at 13:00 Clopidogrel Bisulfate (Plavix) 75 mg DAILY PO ; Start 07/12/17 at 14:00 Docusate Sodium (Colace) 100 mg DAILY PO ; Start 07/12/17 at 14:00 Acetaminophen/ Hydrocodone Bitart (Lortab 5/325) 1 tab PRN Q6HRS PRN PO PAIN; Start 07/12/17 at 13:00 Losartan Potassium (Cozaar) 50 mg QHS PO ; Start 07/12/17 at 21:00 Tamsulosin HCl (Flomax) 0.4 mg QHS PO ; Start 07/12/17 at 21:00 Insulin Detemir (Levemir) 19 units QHS SQ ; Start 07/12/17 at 21:00 Insulin Aspart (NovoLOG) 7 units TIDAC SQ ; Start 07/12/17 at 16:30 Active Scripts Active Flomax (Tamsulosin Hcl) 0.4 Mg Cap.er.24h 0.4 Mg PO QHS Reported Humalog (Insulin Lispro) 100 Unit/1 Ml Insuln.pen 7 Unit SQ TIDWMEALS Tylenol (Acetaminophen) 325 Mg Tablet 650 Mg PO PRN Q4HRS PRN Losartan Potassium 50 Mg Tablet 50 Mg PO QHS Lantus Solostar (Insulin Glargine,Hum.rec.anlog) 100 Unit/1 Ml Insuln.pen 19 Unit SQ QHS Colace (Docusate Sodium) 100 Mg Capsule 100 Mg PO DAILY Clopidogrel (Clopidogrel Bisulfate) 75 Mg Tablet 75 Mg PO DAILY Hydrocodone-Apap 5-325 (Hydrocodone Bit/Acetaminophen) 1 Each Tablet 1 Tab PO PRN Q6HRS PRN Vitals/I & O Vital Sign - Last 24 Hours 07/11/17 07/11/17 07/11/17 07/11/17 17:45 19:56 20:55 21:50 Temp 98.9 98.3 98.2 98.6 98.9 98.3 98.2 98.6 Pulse 78 79 85 85 Resp B/P (MAP) 179/92 (121) 167/84 (111) 167/89 171/82 Pulse Ox 98 100 O2 Delivery Room Air Room Air 07/11/17 07/11/17 07/11/17 07/12/17 22:18 22:55 23:10 00:10 Temp 98.6 98.5 98.4 98.6 98.5 98.4 Pulse 74 78 77 Resp B/P (MAP) 166/85 157/80 156/81 (106) Pulse Ox 99 O2 Delivery Room Air Room Air 07/12/17 07/12/17 07/12/17 07/12/17 03:54 07:12 10:30 14:47 Temp 99.1 97.6 97.9 98.2 99.1 97.6 97.9 98.2 Pulse 74 82 81 86 Resp B/P (MAP) 155/80 (105) 165/88 (113) 137/69 (91) 145/65 (91) Pulse Ox 97 99 96 98 O2 Delivery Room Air Room Air Room Air Room Air Intake and Output 07/11/17 07/11/17 07/12/17 15:00 23:00 07:00 Intake Total 1005 ml 390 ml Output Total 1350 ml Balance 1005 ml -960 ml Problem Qualifiers (1) Uncontrolled diabetes mellitus: Diabetes mellitus type: type 2 Diabetes mellitus complication status: with circulatory complication Diabetes mellitus complication detail: with other circulatory complications Diabetes mellitus termite helper insulin use: with termite helper use Qualified Codes: E11.59 - Type 2 diabetes mellitus with other circulatory complications; E11.65 - Type 2 diabetes mellitus with hyperglycemia ; 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
--- NOTE | 2017-07-12 15:06 | PDOC2 ---
CONSULT Date of Consult Date of Consult DATE: 07/12/17 TIME: 14:43 Reason for Consult Reason for Consult: Bilateral BKA wounds Referring Physician Referring Physician: Dr. Hope Identification/Chief Complaint Chief Complaint Recent admission for hyperglycemia and BKA skin breakdown with bleeding Problems: (1) Non-pressure chronic ulcer of right calf with fat layer exposed (2) Stage II pressure ulcer of right hip (3) Type 2 diabetes mellitus with foot ulcer (4) Non-pressure chronic ulcer of right calf with fat layer exposed Source Source: Chart review, Patient History of Present Illness Reason for Visit: 56-year-old patient recently admitted for hyperglycemia and wound breakdown at site of bilateral BKA. Wound care is consulted for assessment of the BKA ulcer sites. We also note a right hip stage II, hypergranulated pressure ulcer as well. Patient is unable to specify time period over which the hip or BKA ulcer sites deteriorated. Patient is noted to utilize the stumps to push himself up in bed and move around. This was noted on previous experience with this patient and he was cautioned against it. I am not sure of the specific dressings utilized prior to admission. The patient was not aware of fever or chills. He is not aware of increased redness, drainage or odor from the sites. Past Medical History Cardiovascular: HTN Pulmonary: No pertinent hx CENTRAL NERVOUS SYSTEM: Seizure GI: No pertinent hx Heme/Onc: Anemia NOS Hepatobiliary: No pertinent hx Psych: No pertinent hx Rheumatologic: No pertinent hx Infectious disease: No pertinent hx Renal/: Urinary Incontinence Endocrine: Diabetes Past Surgical History Past Surgical History: Other Family History Family History: Coronary Artery Disease Social History ALCOHOL: none Drugs: None Lives: with Family Current Problem List Problem List Problems Medical Problems: (1) Hyperglycemia Status: Acute Current Medications Current Medications Current Medications Sodium Chloride 1,000 ml @ 1,000 mls/hr 1X ONCE IV Last administered on 07/11 18:11; Start 07/11/17 at 18:00; Stop 07/11/17 at 18:59; Status DC Insulin Human Regular (NovoLIN R VIAL) 10 unit 1X ONCE IV Last administered on 07/11/17 18:56; Start 07/11/17 at 19:00; Stop 07/11/17 at 19:01; Status DC Acetaminophen (Tylenol) 650 mg PRN Q4HRS PRN PO PAIN; Start 07/12/17 at 13:00 Clopidogrel Bisulfate (Plavix) 75 mg DAILY PO ; Start 07/12/17 at 14:00 Docusate Sodium (Colace) 100 mg DAILY PO ; Start 07/12/17 at 14:00 Acetaminophen/ Hydrocodone Bitart (Lortab 5/325) 1 tab PRN Q6HRS PRN PO PAIN; Start 07/12/17 at 13:00 Losartan Potassium (Cozaar) 50 mg QHS PO ; Start 07/12/17 at 21:00 Tamsulosin HCl (Flomax) 0.4 mg QHS PO ; Start 07/12/17 at 21:00 Insulin Detemir (Levemir) 19 units QHS SQ ; Start 07/12/17 at 21:00 Insulin Aspart (NovoLOG) 7 units TIDAC SQ ; Start 07/12/17 at 16:30 Active Scripts Active Flomax (Tamsulosin Hcl) 0.4 Mg Cap.er.24h 0.4 Mg PO QHS Reported Humalog (Insulin Lispro) 100 Unit/1 Ml Insuln.pen 7 Unit SQ TIDWMEALS Tylenol (Acetaminophen) 325 Mg Tablet 650 Mg PO PRN Q4HRS PRN Losartan Potassium 50 Mg Tablet 50 Mg PO QHS Lantus Solostar (Insulin Glargine,Hum.rec.anlog) 100 Unit/1 Ml Insuln.pen 19 Unit SQ QHS Colace (Docusate Sodium) 100 Mg Capsule 100 Mg PO DAILY Clopidogrel (Clopidogrel Bisulfate) 75 Mg Tablet 75 Mg PO DAILY Hydrocodone-Apap 5-325 (Hydrocodone Bit/Acetaminophen) 1 Each Tablet 1 Tab PO PRN Q6HRS PRN Allergies Allergies: Coded Allergies: I S O L A T I O N *CONTACT* (Verified Allergy, Unknown, 12/28/16) mrsa aspirin (Verified Adverse Reaction, Intermediate, Nausea and Vomiting, GI BLEED, 12/28/16) ROS General: YES: Fatigue Musculoskeletal: Yes Gait Disturbance Neurological: Yes Numbness/Tingling Skin: Yes Dry Skin Physical Exam General: Alert, Cooperative, No acute distress HEENT: PERRLA, EOMI, Mucous membr. moist/pink Lungs: Clear to auscultation, Normal air movement Heart: Regular rate Abdomen: Soft, No tenderness Extremities: No edema, Other (bilateral BKA) Skin: Other (right hip demonstrates a 3.5 x 1.2 x 0.1 cm stage II pressure ulcer with hyper granulation tissue. The left distal BKA measures 1.8 x 2 with crusted and dry Slough covering. The right distal BKA demonstrates an area of necrotic tissue and yellow slough measuring 5.2 x 9.5 x 0.5 cm. No site demonstrates palpable bone. The periwound appears intact at all areas with no significant erythema.) Neuro: Normal speech, Other (poor sensation is demonstrated over both BKA sites.) MUSCULOSKELETAL: Not examined Vitals VITALS Vital Signs Date Time Temp Pulse Resp B/P (MAP) Pulse Ox O2 Delivery O2 Flow Rate FiO2 07/12/17 10:30 97.9 81 17 137/69 (91) 96 Room Air 97.9 Labs Labs Laboratory Tests Test 07/11/17 17:52 07/12/17 03:30 White Blood Count 8.2 x10^3/uL (4.0-11.0) 8.0 x10^3/uL (4.0-11.0) Red Blood Count 2.20 x10^6/uL (4.30-5.70) 2.75 x10^6/uL (4.30-5.70) Hemoglobin 6.5 g/dL (13.0-17.5) 8.3 g/dL (13.0-17.5) Hematocrit 19.0 % (39.0-53.0) 24.1 % (39.0-53.0) Mean Corpuscular Volume 87 fL (79-100) 88 fL (79-100) Mean Corpuscular Hemoglobin 30 pg (25-35) 30 pg (25-35) Mean Corpuscular Hemoglobin Concent 34 g/dL (31-37) 35 g/dL (31-37) Red Cell Distribution Width 15.5 % (11.5-14.5) 15.5 % (11.5-14.5) Platelet Count 175 x10^3/uL (140-400) 164 x10^3/uL (140-400) Neutrophils (%) (Auto) 61 % (31-73) 56 % (31-73) Lymphocytes (%) (Auto) 31 % (24-48) 35 % (24-48) Monocytes (%) (Auto) 5 % (0-9) 6 % (0-9) Eosinophils (%) (Auto) 3 % (0-3) 3 % (0-3) Basophils (%) (Auto) 0 % (0-3) 0 % (0-3) Neutrophils # (Auto) 5.0 x10^3uL (1.8-7.7) 4.5 x10^3uL (1.8-7.7) Lymphocytes # (Auto) 2.5 x10^3/uL (1.0-4.8) 2.8 x10^3/uL (1.0-4.8) Monocytes # (Auto) 0.4 x10^3/uL (0.0-1.1) 0.4 x10^3/uL (0.0-1.1) Eosinophils # (Auto) 0.2 x10^3/uL (0.0-0.7) 0.2 x10^3/uL (0.0-0.7) Basophils # (Auto) 0.0 x10^3/uL (0.0-0.2) 0.0 x10^3/uL (0.0-0.2) Urine Color Yellow Urine Clarity Cloudy Urine pH 7.0 Urine Specific [place] 1.015 Urine Protein >=300 mg/dL (NEG-TRACE) Urine Glucose (UA) >=1000 mg/dL (NEG) Urine Ketones (Stick) Negative mg/dL (NEG) Urine Blood Large (NEG) Urine Nitrite Positive (NEG) Urine Bilirubin Negative (NEG) Urine Urobilinogen Dipstick 0.2 mg/dL (0.2 mg/dL) Urine Leukocyte Esterase Large (NEG) Urine RBC 6-10 /HPF (0-2) Urine WBC 11-20 /HPF (0-4) Urine Squamous Epithelial Cells Occ /LPF Urine Bacteria Many /HPF (0-FEW) Sodium Level 137 mmol/L (136-145) 140 mmol/L (136-145) Potassium Level 3.4 mmol/L (3.5-5.1) 3.3 mmol/L (3.5-5.1) Chloride Level 106 mmol/L (98-107) 109 mmol/L (98-107) Carbon Dioxide Level 24 mmol/L (21-32) 24 mmol/L (21-32) Anion Gap 7 (6-14) 7 (6-14) Blood Urea Nitrogen 23 mg/dL (8-26) 20 mg/dL (8-26) Creatinine 1.3 mg/dL (0.7-1.3) 1.1 mg/dL (0.7-1.3) Estimated GFR (Cockcroft-Gault) 68.8 83.5 Glucose Level 378 mg/dL (70-99) 222 mg/dL (70-99) Calcium Level 8.0 mg/dL (8.5-10.1) 7.9 mg/dL (8.5-10.1) Laboratory Tests Test 07/11/17 17:52 07/12/17 03:30 White Blood Count 8.2 x10^3/uL (4.0-11.0) 8.0 x10^3/uL (4.0-11.0) Red Blood Count 2.20 x10^6/uL (4.30-5.70) 2.75 x10^6/uL (4.30-5.70) Hemoglobin 6.5 g/dL (13.0-17.5) 8.3 g/dL (13.0-17.5) Hematocrit 19.0 % (39.0-53.0) 24.1 % (39.0-53.0) Mean Corpuscular Volume 87 fL (79-100) 88 fL (79-100) Mean Corpuscular Hemoglobin 30 pg (25-35) 30 pg (25-35) Mean Corpuscular Hemoglobin Concent 34 g/dL (31-37) 35 g/dL (31-37) Red Cell Distribution Width 15.5 % (11.5-14.5) 15.5 % (11.5-14.5) Platelet Count 175 x10^3/uL (140-400) 164 x10^3/uL (140-400) Neutrophils (%) (Auto) 61 % (31-73) 56 % (31-73) Lymphocytes (%) (Auto) 31 % (24-48) 35 % (24-48) Monocytes (%) (Auto) 5 % (0-9) 6 % (0-9) Eosinophils (%) (Auto) 3 % (0-3) 3 % (0-3) Basophils (%) (Auto) 0 % (0-3) 0 % (0-3) Neutrophils # (Auto) 5.0 x10^3uL (1.8-7.7) 4.5 x10^3uL (1.8-7.7) Lymphocytes # (Auto) 2.5 x10^3/uL (1.0-4.8) 2.8 x10^3/uL (1.0-4.8) Monocytes # (Auto) 0.4 x10^3/uL (0.0-1.1) 0.4 x10^3/uL (0.0-1.1) Eosinophils # (Auto) 0.2 x10^3/uL (0.0-0.7) 0.2 x10^3/uL (0.0-0.7) Basophils # (Auto) 0.0 x10^3/uL (0.0-0.2) 0.0 x10^3/uL (0.0-0.2) Urine Color Yellow Urine Clarity Cloudy Urine pH 7.0 Urine Specific [place] 1.015 Urine Protein >=300 mg/dL (NEG-TRACE) Urine Glucose (UA) >=1000 mg/dL (NEG) Urine Ketones (Stick) Negative mg/dL (NEG) Urine Blood Large (NEG) Urine Nitrite Positive (NEG) Urine Bilirubin Negative (NEG) Urine Urobilinogen Dipstick 0.2 mg/dL (0.2 mg/dL) Urine Leukocyte Esterase Large (NEG) Urine RBC 6-10 /HPF (0-2) Urine WBC 11-20 /HPF (0-4) Urine Squamous Epithelial Cells Occ /LPF Urine Bacteria Many /HPF (0-FEW) Sodium Level 137 mmol/L (136-145) 140 mmol/L (136-145) Potassium Level 3.4 mmol/L (3.5-5.1) 3.3 mmol/L (3.5-5.1) Chloride Level 106 mmol/L (98-107) 109 mmol/L (98-107) Carbon Dioxide Level 24 mmol/L (21-32) 24 mmol/L (21-32) Anion Gap 7 (6-14) 7 (6-14) Blood Urea Nitrogen 23 mg/dL (8-26) 20 mg/dL (8-26) Creatinine 1.3 mg/dL (0.7-1.3) 1.1 mg/dL (0.7-1.3) Estimated GFR (Cockcroft-Gault) 68.8 83.5 Glucose Level 378 mg/dL (70-99) 222 mg/dL (70-99) Calcium Level 8.0 mg/dL (8.5-10.1) 7.9 mg/dL (8.5-10.1) Assessment/Plan Assessment/Plan Bilateral Ricks 1 ulcerations of the lower extremity with evidence of fat exposure. On the right assessment is difficult because of overlying necrotic tissue. 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 No viable tissue is removed and no bleeding occurred. The debridement did not require anesthesia. It was well tolerated by the patient. On the left a small rim of superficial pustular drainage was released during the debridement. This did not appear to track deeply. Total area debrided on the right was 49.4 cm. Total area debrided on the left was 3.6 cm. In total, total area debrided was 53.0 cm. This constituted debridement greater than 20 cm. Dressing recommendations of [place] were made and placed by wound care nurses. These be changed in 72 hours. We'll go ahead and perform at least plain film x- ray examination. Active bone infection with sinus tract was not demonstrated following soft tissue debridement and this is encouraging. We continue to make recommendations to this patient to not utilize the stumps for bed mobility. Absorbent foam dressing placed to the right hip and this can be changed on a 2- 3 time weekly basis as well. Offloading instructions for relief of pressure to the right hip. ROBE GRAF DO Jul 12, 2017 15:06
[2017-07-12] MEDS ORDERED: PIPERACILLIN/TAZOBACTAM 3.375 GM in IV DEXTROSE 5% 50 ML IV SCH (16:00)
--- NOTE | 2017-07-12 17:09 | RAD ---
EXAM: Bilateral tibia/fibula 2 views. HISTORY: Nonhealing wound. COMPARISON: None. FINDINGS: There are changes of bilateral below the knee amputation. The soft tissues of both. Are irregular on the right greater than left. On the left, there is a somewhat sharp excrescence of recurrent bone or heterotopic ossification at the tibial resection margin that measures 1.7 cm. There is extensive to within 5 mm of the skin surface. There is no clear cortical erosion suggestive of acute osteomyelitis bilaterally. Prominent chronic bone infarcts are seen within the distal femoral metaphyses bilaterally. Changes of prior left anterior cruciate ligament reconstruction are noted. There are diffuse atherosclerotic calcifications. A Freeman-Stieda lesion is noted on the right. IMPRESSION: 1. Soft tissue ulcers at the amputation stumps on the right greater than left. No clear acute osteomyelitis by radiographs. 2. Recurrent bone or heterotopic ossification at the tibial resection margin on the left extends to within 5 mm of the skin surface. 3. Large distal femoral chronic bone infarcts.
[2017-07-12] MEDS: CLOPIDOGREL BISULFATE 75 MG TABLET PO SCH (18:03)
[2017-07-12] MEDS: DOCUSATE SODIUM 100 MG CAPSULE. PO SCH (18:03)
[2017-07-12] MEDS: PIPERACILLIN/TAZO IV Push 3.375 GM VIAL. IVP SCH ×2 (18:06→23:56)
[2017-07-12] MEDS: INSULIN ASPART 300 UNITS/3 ML INSULN.PEN SQ SCH (18:11)
[2017-07-12] MEDS: LOSARTAN POTASSIUM 50 MG TABLET. PO SCH (20:41)
[2017-07-12] MEDS: TAMSULOSIN 0.4 MG CAP.ER.24H. PO SCH (20:41)
[2017-07-12] MEDS: INSULIN DETEMIR 300 UNITS/3 ML INSULN.PEN. SQ SCH (20:42)
[2017-07-13 03:00] VITALS: BP 131/77
[2017-07-13] MEDS: PIPERACILLIN/TAZO IV Push 3.375 GM VIAL. IVP SCH ×4 (05:39→23:48)
[2017-07-13 07:00] VITALS: BP 142/78
[2017-07-13] MEDS: DOCUSATE SODIUM 100 MG CAPSULE. PO SCH (09:00)
[2017-07-13] MEDS: CLOPIDOGREL BISULFATE 75 MG TABLET PO SCH (09:00)
[2017-07-13] MEDS: INSULIN ASPART 300 UNITS/3 ML INSULN.PEN SQ SCH ×3 (09:05→18:14)
[2017-07-13 11:16] VITALS: BP 144/73
--- NOTE | 2017-07-13 14:05 | PDOC ---
PROGRESS NOTES Chief Complaint Chief Complaint infection/ cellulitis of leg wounds History of Present Illness History of Present Illness EXAM: Right knee, 3 views HISTORY: Right knee pain. Nonhealing wound. COMPARISON: None. FINDINGS: There are changes of bone density amputation. A large sclerotic region within the distal femoral metaphysis spans 9.5 cm and is consistent with a chronic bone infarct. No acute fractures are seen. There is irregularity of the soft tissues at the distal stump, but no clear acute osteomyelitis by radiographs. There is at least mild lateral compartmental joint space narrowing. Alignment is maintained. A Pelligrini-Stieda lesion is noted. There is no joint effusion. Diffuse atherosclerotic calcifications are noted. IMPRESSION: 1. No clear acute osteomyelitis by radiographs. 2. 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 REVIEW OF SYSTEMS: GENERAL: No history of weight change, weakness or fevers. SKIN: No bruising, hair changes or rashes. EYES: No blurred, double or loss of vision. NOSE AND THROAT: No history of nosebleeds, hoarseness or sore throat. HEART: No history of palpitations, chest pain or shortness of breath on exertion. LUNGS: Denies cough, hemoptysis, wheezing or shortness of breath. GASTROINTESTINAL: Denies changes in appetite, nausea, vomiting, diarrhea or constipation. GENITOURINARY: No history of frequency, urgency, hesitancy or nocturia. NEUROLOGIC: Denies history of numbness, tingling, tremor or weakness. PSYCHIATRIC: No history of panic, anxiety or depression. ENDOCRINE: No history of heat or cold intolerance, polyuria or polydipsia. EXTREMITIES: He complains of nonhealing wounds on his stumps. 14 pt ros otherwise neg PHYSICAL EXAMINATION: VITAL SIGNS: Temperature afebrile, pulse 94, respirations 18, blood pressure 145/65 GENERAL: He is alert, cooperative. oriented HEART: Normal S1, S2. LUNGS: Clear. ABDOMEN: Soft. EXTREMITIES: lower extremity bilateral [id number] amputations. Both of them are dressed, drainage coming out of the right ENDOCRINE: No thyromegaly. LYMPHATICS: No cervical nodes. HEMATOPOIETIC: No bruising. ASSESSMENT AND PLAN: Hyperglycemia with acute on chronic anemia, nonhealing wounds, infection. Transfused 2 units, IV antibiotics, wound care, home meds, PT, OT. plan ortho consult may need debridement of wounds PROGNOSIS: Guarded. Lungs: Clear Vitals Vitals Vital Signs Date Time Temp Pulse Resp B/P (MAP) Pulse Ox O2 Delivery O2 Flow Rate FiO2 07/13/17 11:16 100.0 82 16 144/73 (96) 97 Room Air 100.0 Physical Exam Physical Exam SOCIAL HISTORY: He does not drink, smoke or take drugs. MEDICATIONS: Reviewed. REVIEW OF SYSTEMS: GENERAL: No history of weight change, weakness or fevers. SKIN: No bruising, hair changes or rashes. EYES: No blurred, double or loss of vision. NOSE AND THROAT: No history of nosebleeds, hoarseness or sore throat. HEART: No history of palpitations, chest pain or shortness of breath on exertion. LUNGS: Denies cough, hemoptysis, wheezing or shortness of breath. GASTROINTESTINAL: Denies changes in appetite, nausea, vomiting, diarrhea or constipation. GENITOURINARY: No history of frequency, urgency, hesitancy or nocturia. NEUROLOGIC: Denies history of numbness, tingling, tremor or weakness. PSYCHIATRIC: No history of panic, anxiety or depression. ENDOCRINE: No history of heat or cold intolerance, polyuria or polydipsia. EXTREMITIES: He complains of nonhealing wounds on his right stump with drainage and pain 14 pt ros otherwise neg PHYSICAL EXAMINATION: VITAL SIGNS: Temperature afebrile, pulse 94, respirations 18, blood pressure 145/65 GENERAL: He is alert, cooperative. oriented HEART: Normal S1, S2. LUNGS: Clear. ABDOMEN: Soft. EXTREMITIES: lower extremity bilateral [id number] amputations. Both of them are dressed, drainage coming out of the right and left ENDOCRINE: No thyromegaly. LYMPHATICS: No cervical nodes. HEMATOPOIETIC: No bruising. ASSESSMENT AND PLAN: Hyperglycemia with acute on chronic anemia, nonhealing wounds, probable infection. The patient has been admitted. Transfused 2 units , IV antibiotics, wound care, home meds, PT, OT. PROGNOSIS: Guarded. General: Alert, Oriented X3, Cooperative, No acute distress Heart: Regular rate Lungs: Clear Abdomen: Soft, No tenderness Extremities: No edema, Other (bilateral BKA) Skin: No rashes, Other (right hip demonstrates a 3.5 x 1.2 x 0.1 cm stage II pressure ulcer with hyper granulation tissue. The left distal BKA measures 1.8 x 2 with crusted and dry Slough covering. The right distal BKA demonstrates an area of necrotic tissue and yellow slough measuring 5.2 x 9.5 x 0.5 cm. No site demonstrates palpable bone. The periwound appears intact at all areas with no significant erythema.) Labs LABS Laboratory Tests Test 07/12/17 16:25 07/12/17 20:42 07/13/17 07:53 07/13/17 12:04 Glucose (Fingerstick) 230 mg/dL (70-99) 276 mg/dL (70-99) 153 mg/dL (70-99) 168 mg/dL (70-99) Assessment and Plan Assessmemt and Plan Problems Medical Problems: (1) Hyperglycemia Status: Acute bilateral stump wounds Problems: Comment Review of Relevant I have reviewed the following items yobani (where applicable) has been applied. Labs Laboratory Tests Test 07/11/17 17:52 07/11/17 22:49 07/12/17 03:30 07/12/17 07:14 White Blood Count 8.2 x10^3/uL (4.0-11.0) 8.0 x10^3/uL (4.0-11.0) Red Blood Count 2.20 x10^6/uL (4.30-5.70) 2.75 x10^6/uL (4.30-5.70) Hemoglobin 6.5 g/dL (13.0-17.5) 8.3 g/dL (13.0-17.5) Hematocrit 19.0 % (39.0-53.0) 24.1 % (39.0-53.0) Mean Corpuscular Volume 87 fL (79-100) 88 fL (79-100) Mean Corpuscular Hemoglobin 30 pg (25-35) 30 pg (25-35) Mean Corpuscular Hemoglobin Concent 34 g/dL (31-37) 35 g/dL (31-37) Red Cell Distribution Width 15.5 % (11.5-14.5) 15.5 % (11.5-14.5) Platelet Count 175 x10^3/uL (140-400) 164 x10^3/uL (140-400) Neutrophils (%) (Auto) 61 % (31-73) 56 % (31-73) Lymphocytes (%) (Auto) 31 % (24-48) 35 % (24-48) Monocytes (%) (Auto) 5 % (0-9) 6 % (0-9) Eosinophils (%) (Auto) 3 % (0-3) 3 % (0-3) Basophils (%) (Auto) 0 % (0-3) 0 % (0-3) Neutrophils # (Auto) 5.0 x10^3uL (1.8-7.7) 4.5 x10^3uL (1.8-7.7) Lymphocytes # (Auto) 2.5 x10^3/uL (1.0-4.8) 2.8 x10^3/uL (1.0-4.8) Monocytes # (Auto) 0.4 x10^3/uL (0.0-1.1) 0.4 x10^3/uL (0.0-1.1) Eosinophils # (Auto) 0.2 x10^3/uL (0.0-0.7) 0.2 x10^3/uL (0.0-0.7) Basophils # (Auto) 0.0 x10^3/uL (0.0-0.2) 0.0 x10^3/uL (0.0-0.2) Urine Color Yellow Urine Clarity Cloudy Urine pH 7.0 Urine Specific [place] 1.015 Urine Protein >=300 mg/dL (NEG-TRACE) Urine Glucose (UA) >=1000 mg/dL (NEG) Urine Ketones (Stick) Negative mg/dL (NEG) Urine Blood Large (NEG) Urine Nitrite Positive (NEG) Urine Bilirubin Negative (NEG) Urine Urobilinogen Dipstick 0.2 mg/dL (0.2 mg/dL) Urine Leukocyte Esterase Large (NEG) Urine RBC 6-10 /HPF (0-2) Urine WBC 11-20 /HPF (0-4) Urine Squamous Epithelial Cells Occ /LPF Urine Bacteria Many /HPF (0-FEW) Sodium Level 137 mmol/L (136-145) 140 mmol/L (136-145) Potassium Level 3.4 mmol/L (3.5-5.1) 3.3 mmol/L (3.5-5.1) Chloride Level 106 mmol/L (98-107) 109 mmol/L (98-107) Carbon Dioxide Level 24 mmol/L (21-32) 24 mmol/L (21-32) Anion Gap 7 (6-14) 7 (6-14) Blood Urea Nitrogen 23 mg/dL (8-26) 20 mg/dL (8-26) Creatinine 1.3 mg/dL (0.7-1.3) 1.1 mg/dL (0.7-1.3) Estimated GFR (Cockcroft-Gault) 68.8 83.5 Glucose Level 378 mg/dL (70-99) 222 mg/dL (70-99) Calcium Level 8.0 mg/dL (8.5-10.1) 7.9 mg/dL (8.5-10.1) Nasal Screen MRSA (PCR) Positive (Negative) Hemoglobin A1c 8.1 % (4.8-5.6) Glucose (Fingerstick) 199 mg/dL (70-99) Test 07/12/17 11:44 07/12/17 16:25 07/12/17 20:42 07/13/17 07:53 Glucose (Fingerstick) 251 mg/dL (70-99) 230 mg/dL (70-99) 276 mg/dL (70-99) 153 mg/dL (70-99) Test 07/13/17 12:04 Glucose (Fingerstick) 168 mg/dL (70-99) Laboratory Tests Test 07/12/17 16:25 07/12/17 20:42 07/13/17 07:53 07/13/17 12:04 Glucose (Fingerstick) 230 mg/dL (70-99) 276 mg/dL (70-99) 153 mg/dL (70-99) 168 mg/dL (70-99) Microbiology 07/11/17 Urine Culture - Preliminary, Resulted 07/11/17 Urine Culture Result 1 ([facility]) - Preliminary, Resulted Medications Current Medications Sodium Chloride 1,000 ml @ 1,000 mls/hr 1X ONCE IV Last administered on 07/11 18:11; Start 07/11/17 at 18:00; Stop 07/11/17 at 18:59; Status DC Insulin Human Regular (NovoLIN R VIAL) 10 unit 1X ONCE IV Last administered on 07/11/17 18:56; Start 07/11/17 at 19:00; Stop 07/11/17 at 19:01; Status DC Acetaminophen (Tylenol) 650 mg PRN Q4HRS PRN PO MILD PAIN; Start 07/12/17 at 13:00 Clopidogrel Bisulfate (Plavix) 75 mg DAILY PO Last administered on 07/13/17 09:00; Start 07/12/17 at 14:00 Docusate Sodium (Colace) 100 mg DAILY PO Last administered on 07/12/17 18:03 ; Start 07/12/17 at 14:00 Acetaminophen/ Hydrocodone Bitart (Lortab 5/325) 1 tab PRN Q6HRS PRN PO MODERATE PAIN; Start 07/12/17 at 13:00 Losartan Potassium (Cozaar) 50 mg QHS PO Last administered on 07/12/17 20:41 ; Start 07/12/17 at 21:00 Tamsulosin HCl (Flomax) 0.4 mg QHS PO Last administered on 07/12/17 20:41; Start 07/12/17 at 21:00 Insulin Detemir (Levemir) 19 units QHS SQ Last administered on 07/12/17 20:42 ; Start 07/12/17 at 21:00 Insulin Aspart (NovoLOG) 7 units TIDAC SQ Last administered on 07/13/17 13:35 ; Start 07/12/17 at 16:30 Piperacillin Sod/ Tazobactam Sod 3.375 gm/Dextrose 50 ml @ 100 mls/hr Q6HRS IV ; Start 07/12/17 at 16:00; Status Cancel Piperacillin Sod/ Tazobactam Sod (Zosyn) 3.375 gm Q6HRS IVP Last administered on 07/13/17 13:35; Start 07/12/17 at 16:00 Active Scripts Active Flomax (Tamsulosin Hcl) 0.4 Mg Cap.er.24h 0.4 Mg PO QHS Reported Humalog (Insulin Lispro) 100 Unit/1 Ml Insuln.pen 7 Unit SQ TIDWMEALS Tylenol (Acetaminophen) 325 Mg Tablet 650 Mg PO PRN Q4HRS PRN Losartan Potassium 50 Mg Tablet 50 Mg PO QHS Lantus Solostar (Insulin Glargine,Hum.rec.anlog) 100 Unit/1 Ml Insuln.pen 19 Unit SQ QHS Colace (Docusate Sodium) 100 Mg Capsule 100 Mg PO DAILY Clopidogrel (Clopidogrel Bisulfate) 75 Mg Tablet 75 Mg PO DAILY Hydrocodone-Apap 5-325 (Hydrocodone Bit/Acetaminophen) 1 Each Tablet 1 Tab PO PRN Q6HRS PRN Vitals/I & O Vital Sign - Last 24 Hours 07/12/17 07/12/17 07/12/17 07/12/17 14:47 19:30 20:00 20:41 Temp 98.2 97.7 98.2 97.7 Pulse 86 85 85 Resp 17 18 B/P (MAP) 145/65 (91) 134/69 (90) 134/69 Pulse Ox 98 100 O2 Delivery Room Air Room Air Room Air 07/12/17 07/13/17 07/13/17 07/13/17 23:45 03:00 07:00 11:16 Temp 99.5 98.2 97.6 100.0 99.5 98.2 97.6 100.0 Pulse 75 73 77 82 Resp 18 18 18 16 B/P (MAP) 162/80 (107) 131/77 (95) 142/78 (99) 144/73 (96) Pulse Ox 98 98 97 97 O2 Delivery Room Air Room Air Room Air Room Air Intake and Output 07/12/17 07/12/17 07/13/17 15:00 23:00 07:00 Intake Total 120 ml 1150 ml Output Total 2000 ml 800 ml Balance -1880 ml 350 ml CALDERON ELDER MD Jul 13, 2017 14:05
[2017-07-13] MEDS: ENOXAPARIN 40 MG/0.4 ML SYRINGE. SQ SCH (15:00)
[2017-07-13 15:42] VITALS: BP 142/76
[2017-07-13 19:54] VITALS: BP 136/77
[2017-07-13] MEDS: TAMSULOSIN 0.4 MG CAP.ER.24H. PO SCH (21:15)
[2017-07-13] MEDS: ACETAMINOPHEN 325 MG TABLET. PO PRN (21:15)
[2017-07-13] MEDS: LOSARTAN POTASSIUM 50 MG TABLET. PO SCH (21:16)
[2017-07-13] MEDS: INSULIN DETEMIR 300 UNITS/3 ML INSULN.PEN. SQ SCH (21:22)
[2017-07-13 23:40] VITALS: BP 144/78
[2017-07-14] VITALS (7 sets, daily range): BP systolic 124–148; BP diastolic 69–76
[2017-07-14] MEDS: PIPERACILLIN/TAZO IV Push 3.375 GM VIAL. IVP SCH ×3 (06:42→17:30)
[2017-07-14] MEDS: CLOPIDOGREL BISULFATE 75 MG TABLET PO SCH (08:40)
[2017-07-14] MEDS: INSULIN ASPART 300 UNITS/3 ML INSULN.PEN SQ SCH ×3 (08:44→17:06)
[2017-07-14] MEDS: DOCUSATE SODIUM 100 MG CAPSULE. PO SCH (08:44)
--- NOTE | 2017-07-14 12:34 | PDOC ---
PROGRESS NOTES Chief Complaint Chief Complaint LE cellulitis Diabetic foot ulcers ASSESSMENT ANS PLAN: 1. Cellulitis with diabetic ulcers R thigh/B stumps: appreciate Dr Tan's help with management, s/p debridement. cont Zosyn 2. DM2: poorly controlled at admit, HgbA1c 8.6. improved currently. 3. PVD: s/p B BKA. cont 2ary prevention meds 4. UTI: K.pneumoniae, pansensitive. Zosyn should cover here as well. 5. Anemia: severe. s/p PRBC x2. unclear etiology. normocytic, no obvious bleed. obtain anemia labs, OB stools. 6. Prophylaxis: lovenox Vitals Vitals Vital Signs Date Time Temp Pulse Resp B/P (MAP) Pulse Ox O2 Delivery O2 Flow Rate FiO2 07/14/17 11:00 99.5 85 18 124/69 (87) 97 Room Air 99.5 Physical Exam General: Alert, Oriented X3, Cooperative, No acute distress Heart: Regular rate Lungs: Clear Abdomen: Soft, No tenderness Extremities: No edema, Other (bilat BKA) Skin: No rashes, Other (bilat ulcers dressed) Labs LABS Laboratory Tests Test 07/13/17 16:53 07/13/17 21:13 07/14/17 07:51 07/14/17 11:22 Glucose (Fingerstick) 227 mg/dL (70-99) 201 mg/dL (70-99) 159 mg/dL (70-99) 199 mg/dL (70-99) CHRISTIAN ROBERTS MD Jul 14, 2017 12:34
--- NOTE | 2017-07-14 14:08 | RAD ---
DUPLEX LOWER EXTREMITY BILAT History:Poor wound healing Findings: Multiple grayscale, color, and duplex sonographic images were acquired of the bilaterallower extremity arteries. There have been below the knee amputations bilaterally. On the left, there are mostly biphasic waveforms. There is relative increased velocity of the left popliteal artery up to 200 cm/s versus distal superficial femoral 90 cm/s. On the right, there is no demonstrable flow in the popliteal artery. On the right, there are monophasic waveforms of the mid to distal superficial femoral artery, low velocity of the mid superficial femoral artery 22 cm/s. There are triphasic waveforms of the common femoral arteries bilaterally. Impression: 1. On the left, there is velocity increase between the distal superficial femoral artery and popliteal artery suggestive of underlying stenosis. On the right, there is no detectable flow of the popliteal artery, low velocities of the mid to distal superficial femoral artery with probable stenosis at the level of the proximal to mid superficial femoral artery. 2. There have been below the knee amputations bilaterally.
[2017-07-14 14:14] LABS: BASO % 0 % (0-3); EOS % 3 % (0-3); HEMATOCRIT 23.8 % (39.0-53.0); HEMOGLOBIN 8.1 g/dL (13.0-17.5); LYMPH # 2.6 x10^3/uL (1.0-4.8); LYMPH % 31 % (24-48); MEAN CORPUSCULAR HEMOGLOBIN 30 pg (25-35); MEAN CORPUSCULAR HGB CONC 34 g/dL (31-37); MEAN CORPUSCULAR VOLUME 87 fL (79-100); MONO % 6 % (0-9); NEUT % 61 % (31-73); PLATELET COUNT 164 x10^3/uL (140-400); RED BLOOD COUNT 2.73 x10^6/uL (4.30-5.70); RED CELL DISTRIBUTION WIDTH 15.4 % (11.5-14.5); RETIC COUNT 1.5 % (0.5-2.5); WHITE BLOOD COUNT 8.6 x10^3/uL (4.0-11.0)
[2017-07-14 14:45] LABS: % SAT IRON 20 % (15-34); IRON,SERUM 28 ug/dL (65-175)
[2017-07-14 14:51] LABS: ALBUMIN 1.1 g/dL (3.4-5.0); ALBUMIN/GLOBULIN RATIO 0.2 (1.0-1.7); CALCIUM 7.9 mg/dL (8.5-10.1); CREATININE 1.3 mg/dL (0.7-1.3); GFR 68.8; POTASSIUM 3.5 mmol/L (3.5-5.1); TOTAL BILIRUBIN 0.1 mg/dL (0.2-1.0); TOTAL PROTEIN 7.1 g/dL (6.4-8.2)
[2017-07-14 14:57] LABS: FOLATE 6.69 ng/ml (3.2-20.0)
[2017-07-14] MEDS: ENOXAPARIN 40 MG/0.4 ML SYRINGE. SQ SCH (15:09)
[2017-07-14] MEDS: LOSARTAN POTASSIUM 50 MG TABLET. PO SCH (21:23)
[2017-07-14] MEDS: TAMSULOSIN 0.4 MG CAP.ER.24H. PO SCH (21:23)
[2017-07-14] MEDS: LACTOBACILLUS RHAMNOSUS GG 1 CAPSULE. PO SCH (21:23)
[2017-07-14] MEDS: INSULIN DETEMIR 300 UNITS/3 ML INSULN.PEN. SQ SCH (21:30)
[2017-07-15] MEDS: PIPERACILLIN/TAZO IV Push 3.375 GM VIAL. IVP SCH ×5 (01:09→23:44)
[2017-07-15 02:41] VITALS: BP 124/77
--- NOTE | 2017-07-15 06:14 | PDOC ---
Provider Note Provider Note Vascular Surgery Consult dictated 56 year old male with bilateral BKA. The right stump has a large open wound which is close to the bone. The left stump has a small ulcer which I debrided at the bedside and a knee open clean wound. These are likely traumatic pressure wounds from his prosthetic devices and difficulty straightening the knees. Duplex scan shows bilateral popliteal artery disease however proximal femoral/ profunda/sfas are normal. No revascularization is needed. May try wound care however these wounds will be more difficult to heal particularly on the right and he may require above knee amputations in the future. Please call if wounds are not healing and above knee amputations are needed. Wound care team with Dr. Tan is following. ARPIT CHENG MD Jul 15, 2017 06:14
[2017-07-15 06:19] LABS: BASO % 0 % (0-3); EOS % 1 % (0-3); LYMPH % 17 % (24-48); MEAN CORPUSCULAR HEMOGLOBIN 30 pg (25-35); MEAN CORPUSCULAR HGB CONC 34 g/dL (31-37); MEAN CORPUSCULAR VOLUME 88 fL (79-100); MONO % 5 % (0-9); NEUT % 77 % (31-73); PLATELET COUNT 164 x10^3/uL (140-400); RED BLOOD COUNT 2.72 x10^6/uL (4.30-5.70); RED CELL DISTRIBUTION WIDTH 15.6 % (11.5-14.5); WHITE BLOOD COUNT 12.2 x10^3/uL (4.0-11.0)
[2017-07-15 06:36] LABS: CALCIUM 7.7 mg/dL (8.5-10.1); CREATININE 1.7 mg/dL (0.7-1.3); GFR 50.5; POTASSIUM 3.6 mmol/L (3.5-5.1)
--- NOTE | 2017-07-15 06:57 | CONS ---
DATE OF CONSULTATION: 07/15/2017 TYPE OF REPORT: Vascular surgery consultation. CHIEF COMPLAINT: Bilateral wounds on his below knee amputation. HISTORY OF PRESENT ILLNESS: The patient is a 56-year-old male who has bilateral below the knee amputations. He is admitted for open wounds on his amputation stumps. He is uncertain how long these wounds have been present. He does use prosthetic devices at home. He has been admitted with IV antibiotics and wound care. He reports no pain in his stumps. He is a fairly poor historian. I am unable to determine how much he is ambulating with these prosthetic devices. REVIEW OF SYSTEMS: Otherwise, negative. PAST MEDICAL HISTORY: Includes: 1. Hypertension. 2. Anemia. 3. Diabetes mellitus. 4. Urinary incontinence. 5. Seizure disorder. PAST SURGICAL HISTORY: Includes: 1. Bilateral below-knee amputations. 2. He reports bilateral knee surgeries. ALLERGIES: INCLUDE ASPIRIN. MEDICATIONS: Please see his full MAR. PHYSICAL EXAMINATION: GENERAL: The patient is awake and alert, in no apparent distress. He answers some questions appropriately. VITAL SIGNS: He is afebrile. His vital signs are stable. ABDOMEN: Soft and nondistended. EXTREMITIES: His bilateral groins have palpable femoral pulses. His lower extremities have bilateral below the knee amputations. On the right amputation site, there is a large open wound with exposed subcutaneous tissue and the bone is close to the wound but is not exposed. This has been debrided by the wound care team and there is no significant necrotic tissue seen within the right stump wound. His right knee, the skin is very thin with irritation, but there are no open wounds. He has a difficult time fully straightening the right knee. His left below the knee amputation site has a small ulcer on the stump approximately 2 x 2 cm in diameter. It has a necrotic eschar with wet necrotic underlying subcutaneous tissue. At the bedside, I sharply excised necrotic skin and subcutaneous tissue from this wound down to healthier tissue. On his left knee, there is an open wound with a fairly healthy tissue, no gross necrosis it is deep into the subcutaneous tissue level. Aquacel soaked with saline dressings were left on all of the wounds and wrapped with Kerlix gauze. Review of vascular studies, arterial duplex scan of the bilateral lower extremities has been obtained. This shows the bilateral common femoral arteries and profunda arteries are patent with no stenosis. The proximal and mid superficial femoral arteries are patent. On the left, there is increased velocities suggestive of stenosis at the distal superficial femoral and popliteal level. On the right, there is no flow in the popliteal artery from likely chronic occlusion. IMPRESSION: 1. Bilateral vhqzk-ghy-xhlt amputation ulcers, deep to the subcutaneous tissue level, which is likely due to pressure or traumatic sources from his prosthetic devices' end and contractures of his knees. 2. Peripheral arterial disease in the distal superficial femoral and popliteal arteries bilaterally. 3. Diabetes mellitus. PLAN: The patient has bilateral below the knee amputations. By report, he has been using prosthetic devices, I am not sure how much ambulation he is doing independently. He also has difficulty straightening his knees and some component of contracture. These wounds are likely pressure wounds due to his prosthetic devices and pressure on the bed. His right stump wound is fairly extensive. There is no significant necrotic tissue. Wound care can be tried, but this is less likely for this to heal in the future. If it does not heal, he will need a right above the knee amputation. His left stump wound was debrided at the bedside and is a smaller and the knee wound is smaller. Certainly, wound care can be tried and these may heal in the future and if not, he will need an [id number]-mfnr left amputation. No vascular bypass intervention is needed with the location of his arterial disease in the distal superficial femoral and popliteal levels since he has below knee amputations. I would recommend Aquacel daily to the wound soaked with saline. His previous dressings were quite moist with a lot of slough. He is being followed by the Wound Care team and we will follow up in the wound care clinic. If decisions are made for above-knee amputations, please call and we will be happy to proceed with surgery. ARPIT CHENG MD DR: GURVINDER/maria isabel JOB#: [id number] / [id number]
[2017-07-15 07:00] VITALS: BP 139/76
[2017-07-15] MEDS: CLOPIDOGREL BISULFATE 75 MG TABLET PO SCH (08:22)
[2017-07-15] MEDS: LACTOBACILLUS RHAMNOSUS GG 1 CAPSULE. PO SCH ×2 (08:23→21:00)
[2017-07-15] MEDS: INSULIN ASPART 300 UNITS/3 ML INSULN.PEN SQ SCH ×3 (08:28→16:30)
[2017-07-15] MEDS: DOCUSATE SODIUM 100 MG CAPSULE. PO SCH (08:29)
[2017-07-15] MEDS ORDERED: IV NORMAL SALINE 500ML BAG 500 ML IV ONE (09:00)
--- NOTE | 2017-07-15 09:55 | PDOC ---
PROGRESS NOTES Chief Complaint Chief Complaint LE cellulitis Diabetic foot ulcers ASSESSMENT ANS PLAN: 1. Cellulitis with diabetic ulcers R thigh/B stumps: s/p debridement 07/13. cont Zosyn. 2. DM2: poorly controlled at admit, HgbA1c 8.6. improved currently. 3. PVD: s/p B BKA. cont 2ary prevention meds. vas surg following 4. UTI: K.pneumoniae, pansensitive. Zosyn should cover here as well. 5. Anemia: severe. s/p PRBC x2. unclear etiology. normocytic, no obvious bleed. obtain anemia labs, OB stools. 6. Prophylaxis: lovenox History of Present Illness History of Present Illness no pain, no F/C. feels ok Vitals Vitals Vital Signs Date Time Temp Pulse Resp B/P (MAP) Pulse Ox O2 Delivery O2 Flow Rate FiO2 07/15/17 08:00 Room Air 07/15/17 07:00 101.2 94 17 139/76 (97) 98 101.2 Physical Exam General: Alert, Oriented X3, Cooperative, No acute distress Heart: Regular rate Lungs: Clear Abdomen: Soft, No tenderness Extremities: No edema, Other (bilat BKA) Skin: No rashes, Other (bilat ulcers dressed) Labs LABS Laboratory Tests Test 07/14/17 11:22 07/14/17 14:05 07/14/17 16:43 07/14/17 21:27 Glucose (Fingerstick) 199 mg/dL (70-99) 294 mg/dL (70-99) 263 mg/dL (70-99) White Blood Count 8.6 x10^3/uL (4.0-11.0) Red Blood Count 2.73 x10^6/uL (4.30-5.70) Hemoglobin 8.1 g/dL (13.0-17.5) Hematocrit 23.8 % (39.0-53.0) Mean Corpuscular Volume 87 fL (79-100) Mean Corpuscular Hemoglobin 30 pg (25-35) Mean Corpuscular Hemoglobin Concent 34 g/dL (31-37) Red Cell Distribution Width 15.4 % (11.5-14.5) Platelet Count 164 x10^3/uL (140-400) Neutrophils (%) (Auto) 61 % (31-73) Lymphocytes (%) (Auto) 31 % (24-48) Monocytes (%) (Auto) 6 % (0-9) Eosinophils (%) (Auto) 3 % (0-3) Basophils (%) (Auto) 0 % (0-3) Neutrophils # (Auto) 5.3 x10^3uL (1.8-7.7) Lymphocytes # (Auto) 2.6 x10^3/uL (1.0-4.8) Monocytes # (Auto) 0.5 x10^3/uL (0.0-1.1) Eosinophils # (Auto) 0.2 x10^3/uL (0.0-0.7) Basophils # (Auto) 0.0 x10^3/uL (0.0-0.2) Reticulocyte Count (auto) 1.5 % (0.5-2.5) Sodium Level 137 mmol/L (136-145) Potassium Level 3.5 mmol/L (3.5-5.1) Chloride Level 107 mmol/L (98-107) Carbon Dioxide Level 25 mmol/L (21-32) Anion Gap 5 (6-14) Blood Urea Nitrogen 30 mg/dL (8-26) Creatinine 1.3 mg/dL (0.7-1.3) Estimated GFR (Cockcroft-Gault) 68.8 BUN/Creatinine Ratio 23 (6-20) Glucose Level 222 mg/dL (70-99) Calcium Level 7.9 mg/dL (8.5-10.1) Iron Level 28 ug/dL (65-175) Total Iron Binding Capacity 138 ug/dL (250-450) Iron Saturation 20 % (15-34) Ferritin 256 ng/mL (26-388) Total Bilirubin 0.1 mg/dL (0.2-1.0) Aspartate Amino Transf (AST/SGOT) 22 U/L (15-37) Alanine Aminotransferase (ALT/SGPT) 21 U/L (16-63) Alkaline Phosphatase 161 U/L (46-116) Lactate Dehydrogenase 145 U/L (85-227) Total Protein 7.1 g/dL (6.4-8.2) Albumin 1.1 g/dL (3.4-5.0) Albumin/Globulin Ratio 0.2 (1.0-1.7) Vitamin B12 Level 706 pg/mL (247-911) Serum Folate 6.69 ng/ml (3.2-20.0) Test 07/15/17 05:15 07/15/17 05:45 Sodium Level 141 mmol/L (136-145) Potassium Level 3.6 mmol/L (3.5-5.1) Chloride Level 109 mmol/L (98-107) Carbon Dioxide Level 25 mmol/L (21-32) Anion Gap 7 (6-14) Blood Urea Nitrogen 34 mg/dL (8-26) Creatinine 1.7 mg/dL (0.7-1.3) Estimated GFR (Cockcroft-Gault) 50.5 Glucose Level 234 mg/dL (70-99) Calcium Level 7.7 mg/dL (8.5-10.1) White Blood Count 12.2 x10^3/uL (4.0-11.0) Red Blood Count 2.72 x10^6/uL (4.30-5.70) Hemoglobin 8.0 g/dL (13.0-17.5) Hematocrit 24.0 % (39.0-53.0) Mean Corpuscular Volume 88 fL (79-100) Mean Corpuscular Hemoglobin 30 pg (25-35) Mean Corpuscular Hemoglobin Concent 34 g/dL (31-37) Red Cell Distribution Width 15.6 % (11.5-14.5) Platelet Count 164 x10^3/uL (140-400) Neutrophils (%) (Auto) 77 % (31-73) Lymphocytes (%) (Auto) 17 % (24-48) Monocytes (%) (Auto) 5 % (0-9) Eosinophils (%) (Auto) 1 % (0-3) Basophils (%) (Auto) 0 % (0-3) Neutrophils # (Auto) 9.4 x10^3uL (1.8-7.7) Lymphocytes # (Auto) 2.0 x10^3/uL (1.0-4.8) Monocytes # (Auto) 0.7 x10^3/uL (0.0-1.1) Eosinophils # (Auto) 0.1 x10^3/uL (0.0-0.7) Basophils # (Auto) 0.0 x10^3/uL (0.0-0.2) REUSCH,CHRISTIAN MD Jul 15, 2017 09:55
[2017-07-15 11:00] VITALS: BP 132/67
[2017-07-15] MEDS: ENOXAPARIN 40 MG/0.4 ML SYRINGE. SQ SCH (15:02)
[2017-07-15 19:43] VITALS: BP 155/77
[2017-07-15] MEDS: LOSARTAN POTASSIUM 50 MG TABLET. PO SCH (21:00)
[2017-07-15] MEDS: TAMSULOSIN 0.4 MG CAP.ER.24H. PO SCH (21:00)
[2017-07-15] MEDS: INSULIN DETEMIR 300 UNITS/3 ML INSULN.PEN. SQ SCH (23:50)
[2017-07-15 23:51] VITALS: BP 154/79
[2017-07-16] VITALS (7 sets, daily range): BP systolic 129–151; BP diastolic 72–82
[2017-07-16 05:02] LABS: BASO % 0 % (0-3); EOS % 3 % (0-3); HEMATOCRIT 22.6 % (39.0-53.0); HEMOGLOBIN 7.6 g/dL (13.0-17.5); LYMPH # 3.1 x10^3/uL (1.0-4.8); LYMPH % 32 % (24-48); MEAN CORPUSCULAR HEMOGLOBIN 30 pg (25-35); MEAN CORPUSCULAR HGB CONC 34 g/dL (31-37); MEAN CORPUSCULAR VOLUME 88 fL (79-100); MONO % 6 % (0-9); NEUT % 59 % (31-73); PLATELET COUNT 159 x10^3/uL (140-400); RED BLOOD COUNT 2.56 x10^6/uL (4.30-5.70); RED CELL DISTRIBUTION WIDTH 15.6 % (11.5-14.5); WHITE BLOOD COUNT 9.7 x10^3/uL (4.0-11.0)
[2017-07-16 05:38] LABS: CREATININE 1.4 mg/dL (0.7-1.3); GFR 63.2; POTASSIUM 3.4 mmol/L (3.5-5.1)
[2017-07-16] MEDS: PIPERACILLIN/TAZO IV Push 3.375 GM VIAL. IVP SCH ×4 (05:41→23:52)
--- NOTE | 2017-07-16 07:04 | PDOC ---
Provider Note Provider Note Vascular F/U Rt BK stump examined: has exposed bone and no chance to heal Art doppler: popliteal art occluded, no way to improve circulation to to stump Imp: non healable rt. BK stump Plan: Pt. seems to agree to convert to an above knee amputation on the rt. Will schedule for Mon. with Dr. Escobar, the nature of the procedure and risks explained LOIS ORTEGA MD Jul 16, 2017 07:04
[2017-07-16] MEDS: LACTOBACILLUS RHAMNOSUS GG 1 CAPSULE. PO SCH ×2 (08:26→20:41)
[2017-07-16] MEDS: CLOPIDOGREL BISULFATE 75 MG TABLET PO SCH (08:26)
[2017-07-16] MEDS: DOCUSATE SODIUM 100 MG CAPSULE. PO SCH (08:29)
[2017-07-16] MEDS: INSULIN ASPART 300 UNITS/3 ML INSULN.PEN SQ SCH ×4 (08:29→17:33)
[2017-07-16] MEDS ORDERED: oxyCODONE/APAP 5/325 1 TAB TABLET PO PRN (12:45)
[2017-07-16] MEDS ORDERED: DEXTROSE 50% 25 GM / 50ML DISP.SYRIN. IV PRN (12:45)
[2017-07-16] MEDS ORDERED: ACETAMINOPHEN 325 MG TABLET. PO PRN (12:45)
[2017-07-16] MEDS ORDERED: ONDANSETRON PF 4 MG/2 ML VIAL. IV PRN (12:45)
[2017-07-16] MEDS: cefTRIAXone IV Push 1 GM VIAL. IVP SCH ×2 (13:00→13:52)
[2017-07-16] MEDS ORDERED: PIP/TAZO PER PHARMACY MC PRN (14:30)
--- NOTE | 2017-07-16 14:30 | PDOC ---
PROGRESS NOTES Chief Complaint Chief Complaint LE cellulitis Diabetic foot ulcers ASSESSMENT ANS PLAN: 1. Cellulitis with diabetic ulcers R thigh/B stumps: s/p debridement 07/13. 2. DM2: HgbA1c 8.6. 3. PVD: s/p B BKA. 4. UTI: K.pneumoniae, pansensitive. 5. Anemia: of CKD History of Present Illness History of Present Illness Agreeable to AKA and that has been temp set up for tuesday by vasc - with ortho? Pt has no issues BS ok BP ok Start rocephin IV for the UTI pLAN: Add INR to tmr am's labs Zosyn will cover UTI Dw Rn James Vitals Vitals Vital Signs Date Time Temp Pulse Resp B/P (MAP) Pulse Ox O2 Delivery O2 Flow Rate FiO2 07/16/17 10:57 98.8 95 17 135/72 (93) 98 Room Air 98.8 Physical Exam General: Alert, Oriented X3, Cooperative, No acute distress Heart: Regular rate Lungs: Clear Abdomen: Soft, No tenderness Extremities: No edema, Other (bilat BKA) Skin: No rashes, Other (bilat ulcers dressed) Labs LABS Laboratory Tests Test 07/16/17 03:30 07/16/17 07:12 07/16/17 11:27 White Blood Count 9.7 x10^3/uL (4.0-11.0) Red Blood Count 2.56 x10^6/uL (4.30-5.70) Hemoglobin 7.6 g/dL (13.0-17.5) Hematocrit 22.6 % (39.0-53.0) Mean Corpuscular Volume 88 fL (79-100) Mean Corpuscular Hemoglobin 30 pg (25-35) Mean Corpuscular Hemoglobin Concent 34 g/dL (31-37) Red Cell Distribution Width 15.6 % (11.5-14.5) Platelet Count 159 x10^3/uL (140-400) Neutrophils (%) (Auto) 59 % (31-73) Lymphocytes (%) (Auto) 32 % (24-48) Monocytes (%) (Auto) 6 % (0-9) Eosinophils (%) (Auto) 3 % (0-3) Basophils (%) (Auto) 0 % (0-3) Neutrophils # (Auto) 5.7 x10^3uL (1.8-7.7) Lymphocytes # (Auto) 3.1 x10^3/uL (1.0-4.8) Monocytes # (Auto) 0.6 x10^3/uL (0.0-1.1) Eosinophils # (Auto) 0.3 x10^3/uL (0.0-0.7) Basophils # (Auto) 0.0 x10^3/uL (0.0-0.2) Sodium Level 140 mmol/L (136-145) Potassium Level 3.4 mmol/L (3.5-5.1) Chloride Level 109 mmol/L (98-107) Carbon Dioxide Level 25 mmol/L (21-32) Anion Gap 6 (6-14) Blood Urea Nitrogen 33 mg/dL (8-26) Creatinine 1.4 mg/dL (0.7-1.3) Estimated GFR (Cockcroft-Gault) 63.2 Glucose Level 204 mg/dL (70-99) Calcium Level 8.0 mg/dL (8.5-10.1) Glucose (Fingerstick) 133 mg/dL (70-99) 157 mg/dL (70-99) Review of Systems Review of Systems denies 14 pt reviewed with him Assessment and Plan Assessmemt and Plan Problems Medical Problems: (1) Hyperglycemia Status: Acute Problems: Comment Review of Relevant I have reviewed the following items yobani (where applicable) has been applied. Labs Laboratory Tests Test 07/14/17 16:43 07/14/17 21:27 07/15/17 05:15 07/15/17 05:45 Glucose (Fingerstick) 294 mg/dL (70-99) 263 mg/dL (70-99) Sodium Level 141 mmol/L (136-145) Potassium Level 3.6 mmol/L (3.5-5.1) Chloride Level 109 mmol/L (98-107) Carbon Dioxide Level 25 mmol/L (21-32) Anion Gap 7 (6-14) Blood Urea Nitrogen 34 mg/dL (8-26) Creatinine 1.7 mg/dL (0.7-1.3) Estimated GFR (Cockcroft-Gault) 50.5 Glucose Level 234 mg/dL (70-99) Calcium Level 7.7 mg/dL (8.5-10.1) White Blood Count 12.2 x10^3/uL (4.0-11.0) Red Blood Count 2.72 x10^6/uL (4.30-5.70) Hemoglobin 8.0 g/dL (13.0-17.5) Hematocrit 24.0 % (39.0-53.0) Mean Corpuscular Volume 88 fL (79-100) Mean Corpuscular Hemoglobin 30 pg (25-35) Mean Corpuscular Hemoglobin Concent 34 g/dL (31-37) Red Cell Distribution Width 15.6 % (11.5-14.5) Platelet Count 164 x10^3/uL (140-400) Neutrophils (%) (Auto) 77 % (31-73) Lymphocytes (%) (Auto) 17 % (24-48) Monocytes (%) (Auto) 5 % (0-9) Eosinophils (%) (Auto) 1 % (0-3) Basophils (%) (Auto) 0 % (0-3) Neutrophils # (Auto) 9.4 x10^3uL (1.8-7.7) Lymphocytes # (Auto) 2.0 x10^3/uL (1.0-4.8) Monocytes # (Auto) 0.7 x10^3/uL (0.0-1.1) Eosinophils # (Auto) 0.1 x10^3/uL (0.0-0.7) Basophils # (Auto) 0.0 x10^3/uL (0.0-0.2) Test 07/15/17 07:50 07/15/17 10:08 07/15/17 11:38 07/16/17 03:30 Glucose (Fingerstick) 226 mg/dL (70-99) 211 mg/dL (70-99) Lactic Acid Level 1.3 mmol/L (0.4-2.0) White Blood Count 9.7 x10^3/uL (4.0-11.0) Red Blood Count 2.56 x10^6/uL (4.30-5.70) Hemoglobin 7.6 g/dL (13.0-17.5) Hematocrit 22.6 % (39.0-53.0) Mean Corpuscular Volume 88 fL (79-100) Mean Corpuscular Hemoglobin 30 pg (25-35) Mean Corpuscular Hemoglobin Concent 34 g/dL (31-37) Red Cell Distribution Width 15.6 % (11.5-14.5) Platelet Count 159 x10^3/uL (140-400) Neutrophils (%) (Auto) 59 % (31-73) Lymphocytes (%) (Auto) 32 % (24-48) Monocytes (%) (Auto) 6 % (0-9) Eosinophils (%) (Auto) 3 % (0-3) Basophils (%) (Auto) 0 % (0-3) Neutrophils # (Auto) 5.7 x10^3uL (1.8-7.7) Lymphocytes # (Auto) 3.1 x10^3/uL (1.0-4.8) Monocytes # (Auto) 0.6 x10^3/uL (0.0-1.1) Eosinophils # (Auto) 0.3 x10^3/uL (0.0-0.7) Basophils # (Auto) 0.0 x10^3/uL (0.0-0.2) Sodium Level 140 mmol/L (136-145) Potassium Level 3.4 mmol/L (3.5-5.1) Chloride Level 109 mmol/L (98-107) Carbon Dioxide Level 25 mmol/L (21-32) Anion Gap 6 (6-14) Blood Urea Nitrogen 33 mg/dL (8-26) Creatinine 1.4 mg/dL (0.7-1.3) Estimated GFR (Cockcroft-Gault) 63.2 Glucose Level 204 mg/dL (70-99) Calcium Level 8.0 mg/dL (8.5-10.1) Test 07/16/17 07:12 07/16/17 11:27 Glucose (Fingerstick) 133 mg/dL (70-99) 157 mg/dL (70-99) Laboratory Tests Test 07/16/17 03:30 07/16/17 07:12 07/16/17 11:27 White Blood Count 9.7 x10^3/uL (4.0-11.0) Red Blood Count 2.56 x10^6/uL (4.30-5.70) Hemoglobin 7.6 g/dL (13.0-17.5) Hematocrit 22.6 % (39.0-53.0) Mean Corpuscular Volume 88 fL (79-100) Mean Corpuscular Hemoglobin 30 pg (25-35) Mean Corpuscular Hemoglobin Concent 34 g/dL (31-37) Red Cell Distribution Width 15.6 % (11.5-14.5) Platelet Count 159 x10^3/uL (140-400) Neutrophils (%) (Auto) 59 % (31-73) Lymphocytes (%) (Auto) 32 % (24-48) Monocytes (%) (Auto) 6 % (0-9) Eosinophils (%) (Auto) 3 % (0-3) Basophils (%) (Auto) 0 % (0-3) Neutrophils # (Auto) 5.7 x10^3uL (1.8-7.7) Lymphocytes # (Auto) 3.1 x10^3/uL (1.0-4.8) Monocytes # (Auto) 0.6 x10^3/uL (0.0-1.1) Eosinophils # (Auto) 0.3 x10^3/uL (0.0-0.7) Basophils # (Auto) 0.0 x10^3/uL (0.0-0.2) Sodium Level 140 mmol/L (136-145) Potassium Level 3.4 mmol/L (3.5-5.1) Chloride Level 109 mmol/L (98-107) Carbon Dioxide Level 25 mmol/L (21-32) Anion Gap 6 (6-14) Blood Urea Nitrogen 33 mg/dL (8-26) Creatinine 1.4 mg/dL (0.7-1.3) Estimated GFR (Cockcroft-Gault) 63.2 Glucose Level 204 mg/dL (70-99) Calcium Level 8.0 mg/dL (8.5-10.1) Glucose (Fingerstick) 133 mg/dL (70-99) 157 mg/dL (70-99) Microbiology 07/15/17 Blood Culture - Preliminary, Resulted NO GROWTH AFTER 1 DAY 07/11/17 Urine Culture - Final, Complete 07/11/17 Urine Culture Result 1 ([facility]ICO) - Final, Complete 07/11/17 Antimicrobic Susceptibility - Final, Complete 07/14/17 Gram Stain - Final, Complete Medications Current Medications Sodium Chloride 1,000 ml @ 1,000 mls/hr 1X ONCE IV Last administered on 07/11 18:11; Start 07/11/17 at 18:00; Stop 07/11/17 at 18:59; Status DC Insulin Human Regular (NovoLIN R VIAL) 10 unit 1X ONCE IV Last administered on 07/11/17 18:56; Start 07/11/17 at 19:00; Stop 07/11/17 at 19:01; Status DC Acetaminophen (Tylenol) 650 mg PRN Q4HRS PRN PO MILD PAIN Last administered on 07/13/17 21:15; Start 07/12/17 at 13:00 Clopidogrel Bisulfate (Plavix) 75 mg DAILY PO Last administered on 07/16/17 08:26; Start 07/12/17 at 14:00 Docusate Sodium (Colace) 100 mg DAILY PO Last administered on 07/12/17 18:03 ; Start 07/12/17 at 14:00 Acetaminophen/ Hydrocodone Bitart (Lortab 5/325) 1 tab PRN Q6HRS PRN PO MODERATE PAIN; Start 07/12/17 at 13:00 Losartan Potassium (Cozaar) 50 mg QHS PO Last administered on 07/14/17 21:23 ; Start 07/12/17 at 21:00 Tamsulosin HCl (Flomax) 0.4 mg QHS PO Last administered on 07/14/17 21:23; Start 07/12/17 at 21:00 Insulin Detemir (Levemir) 19 units QHS SQ Last administered on 07/13/17 21:22 ; Start 07/12/17 at 21:00; Stop 07/14/17 at 12:26; Status DC Insulin Aspart (NovoLOG) 7 units TIDAC SQ Last administered on 07/16/17 11:44 ; Start 07/12/17 at 16:30 Piperacillin Sod/ Tazobactam Sod 3.375 gm/Dextrose 50 ml @ 100 mls/hr Q6HRS IV ; Start 07/12/17 at 16:00; Status Cancel Piperacillin Sod/ Tazobactam Sod (Zosyn) 3.375 gm Q6HRS IVP Last administered on 07/16/17 11:37; Start 07/12/17 at 16:00; Stop 07/16/17 at 12:50; Status DC Enoxaparin Sodium (Lovenox 40mg Syringe) 40 mg Q24H SQ Last administered on 15:02; Start 07/13/17 at 15:00 Insulin Detemir (Levemir) 22 units QHS SQ Last administered on 07/15/17 23:50 ; Start 07/14/17 at 21:00 Lactobacillus Rhamnosus (Culturelle) 1 cap BID PO Last administered on 08:26; Start 07/14/17 at 21:00 Sodium Chloride 500 ml @ 500 mls/hr 1X ONCE IV Last administered on 09:09; Start 07/15/17 at 09:00; Stop 07/15/17 at 09:59; Status DC Ceftriaxone Sodium 1 gm/ Dextrose 50 ml @ 100 mls/hr Q24H IV ; Start 07/16/17 at 12:45; Status UNV Ondansetron HCl (Zofran) 4 mg PRN Q6HRS PRN IV NAUSEA/VOMITING; Start at 12:45 Acetaminophen (Tylenol) 650 mg PRN Q6HRS PRN PO pain; Start 07/16/17 at 12:45 ; Status UNV Insulin Aspart (NovoLOG) 0-9 UNITS TIDWMEALS SQ ; Start 07/16/17 at 17:00 Dextrose (Dextrose 50%-Water Syringe) 12.5 gm PRN Q15MIN PRN IV SEE COMMENTS; Start 07/16/17 at 12:45 Oxycodone/ Acetaminophen (Percocet 5/325) 1 tab PRN Q4HRS PRN PO PAIN; Start 07/16/17 at 12:45 Ceftriaxone Sodium (Rocephin) 1 gm Q24H IVP Last administered on 07/16/17 13: 52; Start 07/16/17 at 13:00 Active Scripts Active Flomax (Tamsulosin Hcl) 0.4 Mg Cap.er.24h 0.4 Mg PO QHS Reported Humalog (Insulin Lispro) 100 Unit/1 Ml Insuln.pen 7 Unit SQ TIDWMEALS Tylenol (Acetaminophen) 325 Mg Tablet 650 Mg PO PRN Q4HRS PRN Losartan Potassium 50 Mg Tablet 50 Mg PO QHS Lantus Solostar (Insulin Glargine,Hum.rec.anlog) 100 Unit/1 Ml Insuln.pen 19 Unit SQ QHS Colace (Docusate Sodium) 100 Mg Capsule 100 Mg PO DAILY Clopidogrel (Clopidogrel Bisulfate) 75 Mg Tablet 75 Mg PO DAILY Hydrocodone-Apap 5-325 (Hydrocodone Bit/Acetaminophen) 1 Each Tablet 1 Tab PO PRN Q6HRS PRN Vitals/I & O Vital Sign - Last 24 Hours 07/15/17 07/15/17 07/15/17 07/16/17 19:30 19:43 23:51 03:18 Temp 100.8 99.5 97.7 100.8 99.5 97.7 Pulse 82 77 79 Resp 16 16 16 B/P (MAP) 155/77 (103) 154/79 (104) 145/75 (98) Pulse Ox 98 97 97 O2 Delivery Room Air Room Air Room Air Room Air 07/16/17 07/16/17 07/16/17 07:00 08:00 10:57 Temp 98.2 98.8 98.2 98.8 Pulse 105 95 Resp 17 17 B/P (MAP) 151/82 (105) 135/72 (93) Pulse Ox 98 98 O2 Delivery Room Air Room Air Room Air Intake and Output 07/15/17 07/15/17 07/16/17 15:00 23:00 07:00 Intake Total 700 ml Output Total 850 ml 850 ml Balance -150 ml -850 ml ROSAURA DILLARD MD Jul 16, 2017 14:30
[2017-07-16] MEDS: ENOXAPARIN 40 MG/0.4 ML SYRINGE. SQ SCH (15:42)
[2017-07-16] MEDS: TAMSULOSIN 0.4 MG CAP.ER.24H. PO SCH (20:40)
[2017-07-16] MEDS: LOSARTAN POTASSIUM 50 MG TABLET. PO SCH (20:41)
[2017-07-16] MEDS: INSULIN DETEMIR 300 UNITS/3 ML INSULN.PEN. SQ SCH (20:45)
[2017-07-17 03:59] VITALS: BP 151/69
[2017-07-17] MEDS: PIPERACILLIN/TAZO IV Push 3.375 GM VIAL. IVP SCH ×4 (05:45→23:06)
--- NOTE | 2017-07-17 07:36 | PDOC ---
Provider Note Provider Note Vascular F/U For rt. [place] amputation in AM LOIS ORTEGA MD Jul 17, 2017 07:36
[2017-07-17 07:42] VITALS: BP 142/87
[2017-07-17] MEDS: INSULIN ASPART 300 UNITS/3 ML INSULN.PEN SQ SCH ×6 (08:00→17:30)
[2017-07-17] MEDS: DOCUSATE SODIUM 100 MG CAPSULE. PO SCH (08:50)
[2017-07-17] MEDS: LACTOBACILLUS RHAMNOSUS GG 1 CAPSULE. PO SCH ×2 (08:51→20:37)
[2017-07-17] MEDS: CLOPIDOGREL BISULFATE 75 MG TABLET PO SCH (08:51)
[2017-07-17 09:43] LABS: BASO % 0 % (0-3); CALCIUM 8.5 mg/dL (8.5-10.1); CREATININE 1.4 mg/dL (0.7-1.3); EOS % 4 % (0-3); GFR 63.2; LYMPH # 2.5 x10^3/uL (1.0-4.8); LYMPH % 29 % (24-48); MEAN CORPUSCULAR HEMOGLOBIN 30 pg (25-35); MEAN CORPUSCULAR HGB CONC 34 g/dL (31-37); MEAN CORPUSCULAR VOLUME 89 fL (79-100); MONO % 5 % (0-9); NEUT % 61 % (31-73); PLATELET COUNT 201 x10^3/uL (140-400); POTASSIUM 3.5 mmol/L (3.5-5.1); RED BLOOD COUNT 3.04 x10^6/uL (4.30-5.70); RED CELL DISTRIBUTION WIDTH 15.6 % (11.5-14.5); WHITE BLOOD COUNT 8.5 x10^3/uL (4.0-11.0)
[2017-07-17 09:50] LABS: INR 1.2 (0.8-1.1); PROTHROMBIN TIME PATIENT 14.1 SEC (11.7-14.0)
--- NOTE | 2017-07-17 10:51 | PDOC ---
PROGRESS NOTES Chief Complaint Chief Complaint LE cellulitis Diabetic foot ulcers ASSESSMENT ANS PLAN: 1. Cellulitis with diabetic ulcers R thigh/B stumps: s/p debridement 07/13. 2. DM2: HgbA1c 8.6. 3. PVD: s/p B BKA. 4. UTI: K.pneumoniae, pansensitive. 5. Anemia: of CKD History of Present Illness History of Present Illness Agreeable to AKA and is scheduled for tuesday Hgb 9 and iNR 1,.2 - ready for OR tmr BS are tolerable BP ok pLAN: cont IV zosyn NPO post [place] AKA tmr by vasc/ortho Lawson Rn James Vitals Vitals Vital Signs Date Time Temp Pulse Resp B/P (MAP) Pulse Ox O2 Delivery O2 Flow Rate FiO2 07/17/17 07:42 98.3 106 18 142/87 (105) 97 Room Air 98.3 Physical Exam General: Alert, Oriented X3, Cooperative, No acute distress Heart: Regular rate Lungs: Clear Abdomen: Soft, No tenderness Extremities: No edema, Other (bilat BKA) Skin: No rashes, Other (bilat ulcers dressed) Labs LABS Laboratory Tests Test 07/16/17 11:27 07/16/17 16:31 07/16/17 20:37 07/17/17 07:15 Glucose (Fingerstick) 157 mg/dL (70-99) 222 mg/dL (70-99) 157 mg/dL (70-99) 110 mg/dL (70-99) Test 07/17/17 09:25 White Blood Count 8.5 x10^3/uL (4.0-11.0) Red Blood Count 3.04 x10^6/uL (4.30-5.70) Hemoglobin 9.0 g/dL (13.0-17.5) Hematocrit 27.0 % (39.0-53.0) Mean Corpuscular Volume 89 fL (79-100) Mean Corpuscular Hemoglobin 30 pg (25-35) Mean Corpuscular Hemoglobin Concent 34 g/dL (31-37) Red Cell Distribution Width 15.6 % (11.5-14.5) Platelet Count 201 x10^3/uL (140-400) Neutrophils (%) (Auto) 61 % (31-73) Lymphocytes (%) (Auto) 29 % (24-48) Monocytes (%) (Auto) 5 % (0-9) Eosinophils (%) (Auto) 4 % (0-3) Basophils (%) (Auto) 0 % (0-3) Neutrophils # (Auto) 5.2 x10^3uL (1.8-7.7) Lymphocytes # (Auto) 2.5 x10^3/uL (1.0-4.8) Monocytes # (Auto) 0.4 x10^3/uL (0.0-1.1) Eosinophils # (Auto) 0.3 x10^3/uL (0.0-0.7) Basophils # (Auto) 0.0 x10^3/uL (0.0-0.2) Prothrombin Time 14.1 SEC (11.7-14.0) Prothromb Time International Ratio 1.2 (0.8-1.1) Sodium Level 139 mmol/L (136-145) Potassium Level 3.5 mmol/L (3.5-5.1) Chloride Level 108 mmol/L (98-107) Carbon Dioxide Level 24 mmol/L (21-32) Anion Gap 7 (6-14) Blood Urea Nitrogen 32 mg/dL (8-26) Creatinine 1.4 mg/dL (0.7-1.3) Estimated GFR (Cockcroft-Gault) 63.2 Glucose Level 102 mg/dL (70-99) Calcium Level 8.5 mg/dL (8.5-10.1) Review of Systems Review of Systems denies 14 pt reviewed Assessment and Plan Assessmemt and Plan Problems Medical Problems: (1) Hyperglycemia Status: Acute Problems: Comment Review of Relevant I have reviewed the following items yobani (where applicable) has been applied. Labs Laboratory Tests Test 07/15/17 11:38 07/16/17 03:30 07/16/17 07:12 07/16/17 11:27 Glucose (Fingerstick) 211 mg/dL (70-99) 133 mg/dL (70-99) 157 mg/dL (70-99) White Blood Count 9.7 x10^3/uL (4.0-11.0) Red Blood Count 2.56 x10^6/uL (4.30-5.70) Hemoglobin 7.6 g/dL (13.0-17.5) Hematocrit 22.6 % (39.0-53.0) Mean Corpuscular Volume 88 fL (79-100) Mean Corpuscular Hemoglobin 30 pg (25-35) Mean Corpuscular Hemoglobin Concent 34 g/dL (31-37) Red Cell Distribution Width 15.6 % (11.5-14.5) Platelet Count 159 x10^3/uL (140-400) Neutrophils (%) (Auto) 59 % (31-73) Lymphocytes (%) (Auto) 32 % (24-48) Monocytes (%) (Auto) 6 % (0-9) Eosinophils (%) (Auto) 3 % (0-3) Basophils (%) (Auto) 0 % (0-3) Neutrophils # (Auto) 5.7 x10^3uL (1.8-7.7) Lymphocytes # (Auto) 3.1 x10^3/uL (1.0-4.8) Monocytes # (Auto) 0.6 x10^3/uL (0.0-1.1) Eosinophils # (Auto) 0.3 x10^3/uL (0.0-0.7) Basophils # (Auto) 0.0 x10^3/uL (0.0-0.2) Sodium Level 140 mmol/L (136-145) Potassium Level 3.4 mmol/L (3.5-5.1) Chloride Level 109 mmol/L (98-107) Carbon Dioxide Level 25 mmol/L (21-32) Anion Gap 6 (6-14) Blood Urea Nitrogen 33 mg/dL (8-26) Creatinine 1.4 mg/dL (0.7-1.3) Estimated GFR (Cockcroft-Gault) 63.2 Glucose Level 204 mg/dL (70-99) Calcium Level 8.0 mg/dL (8.5-10.1) Test 07/16/17 16:31 07/16/17 20:37 07/17/17 07:15 07/17/17 09:25 Glucose (Fingerstick) 222 mg/dL (70-99) 157 mg/dL (70-99) 110 mg/dL (70-99) White Blood Count 8.5 x10^3/uL (4.0-11.0) Red Blood Count 3.04 x10^6/uL (4.30-5.70) Hemoglobin 9.0 g/dL (13.0-17.5) Hematocrit 27.0 % (39.0-53.0) Mean Corpuscular Volume 89 fL (79-100) Mean Corpuscular Hemoglobin 30 pg (25-35) Mean Corpuscular Hemoglobin Concent 34 g/dL (31-37) Red Cell Distribution Width 15.6 % (11.5-14.5) Platelet Count 201 x10^3/uL (140-400) Neutrophils (%) (Auto) 61 % (31-73) Lymphocytes (%) (Auto) 29 % (24-48) Monocytes (%) (Auto) 5 % (0-9) Eosinophils (%) (Auto) 4 % (0-3) Basophils (%) (Auto) 0 % (0-3) Neutrophils # (Auto) 5.2 x10^3uL (1.8-7.7) Lymphocytes # (Auto) 2.5 x10^3/uL (1.0-4.8) Monocytes # (Auto) 0.4 x10^3/uL (0.0-1.1) Eosinophils # (Auto) 0.3 x10^3/uL (0.0-0.7) Basophils # (Auto) 0.0 x10^3/uL (0.0-0.2) Prothrombin Time 14.1 SEC (11.7-14.0) Prothromb Time International Ratio 1.2 (0.8-1.1) Sodium Level 139 mmol/L (136-145) Potassium Level 3.5 mmol/L (3.5-5.1) Chloride Level 108 mmol/L (98-107) Carbon Dioxide Level 24 mmol/L (21-32) Anion Gap 7 (6-14) Blood Urea Nitrogen 32 mg/dL (8-26) Creatinine 1.4 mg/dL (0.7-1.3) Estimated GFR (Cockcroft-Gault) 63.2 Glucose Level 102 mg/dL (70-99) Calcium Level 8.5 mg/dL (8.5-10.1) Laboratory Tests Test 07/16/17 11:27 07/16/17 16:31 07/16/17 20:37 07/17/17 07:15 Glucose (Fingerstick) 157 mg/dL (70-99) 222 mg/dL (70-99) 157 mg/dL (70-99) 110 mg/dL (70-99) Test 07/17/17 09:25 White Blood Count 8.5 x10^3/uL (4.0-11.0) Red Blood Count 3.04 x10^6/uL (4.30-5.70) Hemoglobin 9.0 g/dL (13.0-17.5) Hematocrit 27.0 % (39.0-53.0) Mean Corpuscular Volume 89 fL (79-100) Mean Corpuscular Hemoglobin 30 pg (25-35) Mean Corpuscular Hemoglobin Concent 34 g/dL (31-37) Red Cell Distribution Width 15.6 % (11.5-14.5) Platelet Count 201 x10^3/uL (140-400) Neutrophils (%) (Auto) 61 % (31-73) Lymphocytes (%) (Auto) 29 % (24-48) Monocytes (%) (Auto) 5 % (0-9) Eosinophils (%) (Auto) 4 % (0-3) Basophils (%) (Auto) 0 % (0-3) Neutrophils # (Auto) 5.2 x10^3uL (1.8-7.7) Lymphocytes # (Auto) 2.5 x10^3/uL (1.0-4.8) Monocytes # (Auto) 0.4 x10^3/uL (0.0-1.1) Eosinophils # (Auto) 0.3 x10^3/uL (0.0-0.7) Basophils # (Auto) 0.0 x10^3/uL (0.0-0.2) Prothrombin Time 14.1 SEC (11.7-14.0) Prothromb Time International Ratio 1.2 (0.8-1.1) Sodium Level 139 mmol/L (136-145) Potassium Level 3.5 mmol/L (3.5-5.1) Chloride Level 108 mmol/L (98-107) Carbon Dioxide Level 24 mmol/L (21-32) Anion Gap 7 (6-14) Blood Urea Nitrogen 32 mg/dL (8-26) Creatinine 1.4 mg/dL (0.7-1.3) Estimated GFR (Cockcroft-Gault) 63.2 Glucose Level 102 mg/dL (70-99) Calcium Level 8.5 mg/dL (8.5-10.1) Microbiology 07/15/17 Blood Culture - Preliminary, Resulted NO GROWTH AFTER 2 DAYS 07/11/17 Urine Culture - Final, Complete 07/11/17 Urine Culture Result 1 ([facility]) - Final, Complete 07/11/17 Antimicrobic Susceptibility - Final, Complete 07/14/17 Gram Stain - Final, Complete Medications Current Medications Sodium Chloride 1,000 ml @ 1,000 mls/hr 1X ONCE IV Last administered on 07/11 18:11; Start 07/11/17 at 18:00; Stop 07/11/17 at 18:59; Status DC Insulin Human Regular (NovoLIN R VIAL) 10 unit 1X ONCE IV Last administered on 07/11/17 18:56; Start 07/11/17 at 19:00; Stop 07/11/17 at 19:01; Status DC Acetaminophen (Tylenol) 650 mg PRN Q4HRS PRN PO MILD PAIN Last administered on 07/13/17 21:15; Start 07/12/17 at 13:00 Clopidogrel Bisulfate (Plavix) 75 mg DAILY PO Last administered on 07/16/17 08:26; Start 07/12/17 at 14:00 Docusate Sodium (Colace) 100 mg DAILY PO Last administered on 07/12/17 18:03 ; Start 07/12/17 at 14:00 Acetaminophen/ Hydrocodone Bitart (Lortab 5/325) 1 tab PRN Q6HRS PRN PO MODERATE PAIN; Start 07/12/17 at 13:00 Losartan Potassium (Cozaar) 50 mg QHS PO Last administered on 07/16/17 20:41 ; Start 07/12/17 at 21:00 Tamsulosin HCl (Flomax) 0.4 mg QHS PO Last administered on 07/16/17 20:40; Start 07/12/17 at 21:00 Insulin Detemir (Levemir) 19 units QHS SQ Last administered on 07/13/17 21:22 ; Start 07/12/17 at 21:00; Stop 07/14/17 at 12:26; Status DC Insulin Aspart (NovoLOG) 7 units TIDAC SQ Last administered on 07/17/17 08:48 ; Start 07/12/17 at 16:30 Piperacillin Sod/ Tazobactam Sod 3.375 gm/Dextrose 50 ml @ 100 mls/hr Q6HRS IV ; Start 07/12/17 at 16:00; Status Cancel Piperacillin Sod/ Tazobactam Sod (Zosyn) 3.375 gm Q6HRS IVP Last administered on 07/17/17 05:45; Start 07/12/17 at 16:00 Enoxaparin Sodium (Lovenox 40mg Syringe) 40 mg Q24H SQ Last administered on 15:42; Start 07/13/17 at 15:00 Insulin Detemir (Levemir) 22 units QHS SQ Last administered on 07/16/17 20:45 ; Start 07/14/17 at 21:00 Lactobacillus Rhamnosus (Culturelle) 1 cap BID PO Last administered on 20:41; Start 07/14/17 at 21:00 Sodium Chloride 500 ml @ 500 mls/hr 1X ONCE IV Last administered on 09:09; Start 07/15/17 at 09:00; Stop 07/15/17 at 09:59; Status DC Ceftriaxone Sodium 1 gm/ Dextrose 50 ml @ 100 mls/hr Q24H IV ; Start 07/16/17 at 12:45; Status UNV Ondansetron HCl (Zofran) 4 mg PRN Q6HRS PRN IV NAUSEA/VOMITING; Start at 12:45 Acetaminophen (Tylenol) 650 mg PRN Q6HRS PRN PO pain; Start 07/16/17 at 12:45 ; Status UNV Insulin Aspart (NovoLOG) 0-9 UNITS TIDWMEALS SQ Last administered on 17:33; Start 07/16/17 at 17:00 Dextrose (Dextrose 50%-Water Syringe) 12.5 gm PRN Q15MIN PRN IV SEE COMMENTS; Start 07/16/17 at 12:45 Oxycodone/ Acetaminophen (Percocet 5/325) 1 tab PRN Q4HRS PRN PO PAIN; Start 07/16/17 at 12:45 Ceftriaxone Sodium (Rocephin) 1 gm Q24H IVP Last administered on 07/16/17t 13: 52; Start 07/16/17 at 13:00; Stop 07/16/17 at 14:30; Status DC Piperacillin Sod/ Tazobactam Sod (Zosyn Per Pharmacy) 1 each PRN DAILY PRN MC SEE COMMENTS; Start 07/16/17 at 14:30 Active Scripts Active Flomax (Tamsulosin Hcl) 0.4 Mg Cap.er.24h 0.4 Mg PO QHS Reported Humalog (Insulin Lispro) 100 Unit/1 Ml Insuln.pen 7 Unit SQ TIDWMEALS Tylenol (Acetaminophen) 325 Mg Tablet 650 Mg PO PRN Q4HRS PRN Losartan Potassium 50 Mg Tablet 50 Mg PO QHS Lantus Solostar (Insulin Glargine,Hum.rec.anlog) 100 Unit/1 Ml Insuln.pen 19 Unit SQ QHS Colace (Docusate Sodium) 100 Mg Capsule 100 Mg PO DAILY Clopidogrel (Clopidogrel Bisulfate) 75 Mg Tablet 75 Mg PO DAILY Hydrocodone-Apap 5-325 (Hydrocodone Bit/Acetaminophen) 1 Each Tablet 1 Tab PO PRN Q6HRS PRN Vitals/I & O Vital Sign - Last 24 Hours 07/16/17 07/16/17 07/16/17 07/16/17 10:57 15:14 19:10 20:00 Temp 98.8 98.6 100.6 98.8 98.6 100.6 Pulse 95 99 92 Resp 18 B/P (MAP) 135/72 (93) 137/76 (96) 129/72 (91) Pulse Ox 98 99 98 O2 Delivery Room Air Room Air Room Air Room Air 07/16/17 07/16/17 07/17/17 07/17/17 20:41 23:47 03:59 07:42 Temp 99.9 97.8 98.3 99.9 97.8 98.3 Pulse 92 76 66 106 Resp 18 B/P (MAP) 129/72 140/78 (98) 151/69 (96) 142/87 (105) Pulse Ox 98 95 97 O2 Delivery Room Air Room Air Room Air Intake and Output 07/16/17 07/16/17 07/17/17 15:00 23:00 07:00 Intake Total 1311 ml 300 ml Output Total 900 ml 850 ml Balance 411 ml -550 ml TERMULO,ROSAURA Y MD Jul 17, 2017 10:51
[2017-07-17 11:05] VITALS: BP 128/69
[2017-07-17] MEDS: ENOXAPARIN 40 MG/0.4 ML SYRINGE. SQ SCH (15:00)
[2017-07-17 15:02] VITALS: BP 147/78
[2017-07-17 19:00] VITALS: BP 143/74
[2017-07-17] MEDS: TAMSULOSIN 0.4 MG CAP.ER.24H. PO SCH (20:37)
[2017-07-17] MEDS: LOSARTAN POTASSIUM 50 MG TABLET. PO SCH (20:37)
[2017-07-17] MEDS: INSULIN DETEMIR 300 UNITS/3 ML INSULN.PEN. SQ SCH (20:48)
[2017-07-17 23:56] VITALS: BP 160/82
[2017-07-18] VITALS (9 sets, daily range): BP systolic 127–168; BP diastolic 74–91
[2017-07-18] MEDS: PIPERACILLIN/TAZO IV Push 3.375 GM VIAL. IVP SCH ×3 (05:54→19:04)
[2017-07-18] MEDS: INSULIN ASPART 300 UNITS/3 ML INSULN.PEN SQ SCH ×6 (07:30→17:00)
[2017-07-18] MEDS ORDERED: IV RINGERS,LACTATED 1000ML 1,000 ML IV SCH (07:43)
[2017-07-18] MEDS ORDERED: fentaNYL PF VIAL 100 MCG/2 ML VIAL IV PRN ×2 (07:45)
[2017-07-18] MEDS ORDERED: PROCHLORPERAZINE 10 MG/2 ML VIAL. IV PRN (07:45)
[2017-07-18] MEDS ORDERED: MORPHINE SULFATE 2 MG/ML DISP.SYRIN. IV PRN ×2 (07:45→15:30)
[2017-07-18] MEDS ORDERED: ONDANSETRON PF 4 MG/2 ML VIAL. IV PRN (07:45)
[2017-07-18] MEDS ORDERED: LIDOCAINE 1% PF 2 ML VIAL. ID PRN (07:45)
[2017-07-18] MEDS ORDERED: HYDROmorphone 2 MG/ML VIAL IV PRN (07:45)
[2017-07-18] MEDS: DOCUSATE SODIUM 100 MG CAPSULE. PO SCH (09:00)
[2017-07-18 10:20] LABS: BASO % 1 % (0-3); EOS % 4 % (0-3); HEMATOCRIT 22.1 % (39.0-53.0); HEMOGLOBIN 7.5 g/dL (13.0-17.5); LYMPH # 2.7 x10^3/uL (1.0-4.8); LYMPH % 31 % (24-48); MEAN CORPUSCULAR HEMOGLOBIN 30 pg (25-35); MEAN CORPUSCULAR HGB CONC 34 g/dL (31-37); MEAN CORPUSCULAR VOLUME 90 fL (79-100); MONO % 6 % (0-9); NEUT % 58 % (31-73); PLATELET COUNT 204 x10^3/uL (140-400); RED BLOOD COUNT 2.47 x10^6/uL (4.30-5.70); RED CELL DISTRIBUTION WIDTH 15.7 % (11.5-14.5); WHITE BLOOD COUNT 8.6 x10^3/uL (4.0-11.0)
[2017-07-18 10:31] LABS: CREATININE 1.3 mg/dL (0.7-1.3); GFR 68.8; POTASSIUM 3.6 mmol/L (3.5-5.1)
[2017-07-18] MEDS ORDERED: NEOSTIGMINE 10 MG/10 ML VIAL. ONE (11:37)
[2017-07-18] MEDS ORDERED: SEVOFLURANE > 120 MINUTES. IH ONE (11:37)
[2017-07-18] MEDS ORDERED: GLYCOPYRROLATE 1 MG/5 ML VIAL. ONE (11:38)
[2017-07-18] MEDS ORDERED: MIDAZOLAM HCL/PF 2 MG/2 ML VIAL. ONE (11:38)
[2017-07-18] MEDS ORDERED: ROCURONIUM 50 MG/5 ML VIAL. ONE (11:38)
[2017-07-18] MEDS ORDERED: ONDANSETRON PF 4 MG/2 ML VIAL. ONE (11:38)
[2017-07-18] MEDS ORDERED: PROPOFOL 20 ML IV ONE (11:38)
[2017-07-18] MEDS ORDERED: DEXAMETHASONE SOD PHOS 20 MG/5 ML VIAL. ONE (11:38)
[2017-07-18] MEDS ORDERED: LIDOCAINE 2% PF Vial for OR 5 ML VIAL. ONE (11:38)
[2017-07-18] MEDS ORDERED: fentaNYL PF VIAL 100 MCG/2 ML VIAL ONE ×2 (11:38→14:42)
[2017-07-18] MEDS ORDERED: IV NORMAL SALINE 1000ML BAG 1,000 ML IV PRN (12:00)
[2017-07-18] MEDS ORDERED: VASOPRESSIN 20 UNIT/ML VIAL. ONE (14:27)
--- NOTE | 2017-07-18 15:23 | PDOC ---
BRIEF OPERATIVE NOTE Date: Jul 18, 2017 Pre-Op Diagnosis Bilateral below knee amputation site ulcers, right stump ulcer large, non- healing Post-Op Diagnosis same Procedure Performed Right above knee amputation Surgeon Dr. [facility] Customer Service Associate Sami Bond NP Anesthesia Type: General Blood Loss 400cc Specimens Obtained residual right leg Findings adequate bleeding Complications none Operative Note see dictated note for additional information SAMI BOND DIRECTOR [employer] Jul 18, 2017 15:23
--- NOTE | 2017-07-18 16:18 | OP ---
DATE OF SURGERY: 07/18/2017 PREOPERATIVE DIAGNOSES: Poor healing right below knee amputation with significant peripheral vascular disease. POSTOPERATIVE DIAGNOSES: Poor healing right below knee amputation with significant peripheral vascular disease. OPERATION PERFORMED: Right above knee amputation. SURGEON: Leslie Ureña MD. [facility]: ELDON Wagner. ANESTHESIA: General. INDICATIONS: This is a gentleman who has had bilateral below knee amputations. He presented to [facility] a few days ago complained of nonhealing wounds. He has significant wound on the right with exposed tibia. On the left, there is likewise a wound which after debridement is much smaller. After discussion with the patient, we decided to proceed with revision to a right above knee amputation and a continued conservative management on the left for now. DESCRIPTION OF PROCEDURE: The right remaining leg was prepped and draped circumferentially. The patient received IV antibiotics. A fishmouth incision was made just above the knee and extended through the subcutaneous tissues and fascia. The femur was exposed with electrocautery, and the periosteal tissues were resected back with a periosteal elevator. The femur was then circumferentially dissected and then transected with an oscillating saw. The posterior flap was then fashioned using sharp dissection. Bleeding was controlled with individual clamping of the neurovascular bundle and oversewn with 2-0 silk suture ligatures. The tibial nerve was identified and clamped, access was resected, and a silk ligature was placed around the base. Bleeding was excellent from all tissues including the skin. Further bleeding was controlled with electrocautery and suture ligation. Wound was then irrigated, and fascial layer was then closed with 2-0 Vicryl over a Jared-Edmondson drain. The skin was closed with interrupted 4-0 nylon sutures for a tension-free closure. A sterile compression dressing was applied. The patient was taken to the recovery room in satisfactory condition. LESLIE UREÑA MD DR: MICHAEL/maria isabel JOB#: [id number] / [id number]
[2017-07-18 16:26] LABS: HEMATOCRIT 26.8 % (39.0-53.0); HEMOGLOBIN 8.9 g/dL (13.0-17.5)
[2017-07-18] MEDS: LACTOBACILLUS RHAMNOSUS GG 1 CAPSULE. PO SCH ×2 (18:02→21:04)
[2017-07-18] MEDS: CLOPIDOGREL BISULFATE 75 MG TABLET PO SCH (18:03)
[2017-07-18] MEDS: ENOXAPARIN 40 MG/0.4 ML SYRINGE. SQ SCH (18:04)
[2017-07-18] MEDS: LOSARTAN POTASSIUM 50 MG TABLET. PO SCH (21:04)
[2017-07-18] MEDS: TAMSULOSIN 0.4 MG CAP.ER.24H. PO SCH (21:04)
[2017-07-18] MEDS: INSULIN DETEMIR 300 UNITS/3 ML INSULN.PEN. SQ SCH (21:07)
--- NOTE | 2017-07-18 23:13 | PDOC ---
PROGRESS NOTES Chief Complaint Chief Complaint LE cellulitis Diabetic foot ulcers ASSESSMENT ANS PLAN: 1. Cellulitis with diabetic ulcers R thigh/B stumps: s/p debridement 07/13. 2. DM2: HgbA1c 8.6. 3. PVD: s/p B BKA. 4. UTI: K.pneumoniae, pansensitive. 5. Anemia: of CKD History of Present Illness History of Present Illness Agreeable to RENETTA Ureña, Poor healing significant peripheral vascular disease. BS and BP ok cont IV zosyn AKJovanny Vitals Vitals Vital Signs Date Time Temp Pulse Resp B/P (MAP) Pulse Ox O2 Delivery O2 Flow Rate FiO2 07/18/17 23:08 98.1 99 18 127/78 (94) 99 Room Air 98.1 07/18/17 15:40 10 Physical Exam General: Alert, Oriented X3, Cooperative, No acute distress Abdomen: Soft, No tenderness Extremities: No edema, Other (bilat BKA) Skin: No rashes, Other (bilat ulcers dressed) Labs LABS Laboratory Tests Test 07/18/17 07:37 07/18/17 10:00 07/18/17 10:42 07/18/17 15:31 Glucose (Fingerstick) 113 mg/dL (70-99) 85 mg/dL (70-99) 112 mg/dL (70-99) White Blood Count 8.6 x10^3/uL (4.0-11.0) Red Blood Count 2.47 x10^6/uL (4.30-5.70) Hemoglobin 7.5 g/dL (13.0-17.5) Hematocrit 22.1 % (39.0-53.0) Mean Corpuscular Volume 90 fL (79-100) Mean Corpuscular Hemoglobin 30 pg (25-35) Mean Corpuscular Hemoglobin Concent 34 g/dL (31-37) Red Cell Distribution Width 15.7 % (11.5-14.5) Platelet Count 204 x10^3/uL (140-400) Neutrophils (%) (Auto) 58 % (31-73) Lymphocytes (%) (Auto) 31 % (24-48) Monocytes (%) (Auto) 6 % (0-9) Eosinophils (%) (Auto) 4 % (0-3) Basophils (%) (Auto) 1 % (0-3) Neutrophils # (Auto) 5.0 x10^3uL (1.8-7.7) Lymphocytes # (Auto) 2.7 x10^3/uL (1.0-4.8) Monocytes # (Auto) 0.5 x10^3/uL (0.0-1.1) Eosinophils # (Auto) 0.3 x10^3/uL (0.0-0.7) Basophils # (Auto) 0.0 x10^3/uL (0.0-0.2) Sodium Level 143 mmol/L (136-145) Potassium Level 3.6 mmol/L (3.5-5.1) Chloride Level 110 mmol/L (98-107) Carbon Dioxide Level 25 mmol/L (21-32) Anion Gap 8 (6-14) Blood Urea Nitrogen 30 mg/dL (8-26) Creatinine 1.3 mg/dL (0.7-1.3) Estimated GFR (Cockcroft-Gault) 68.8 Glucose Level 95 mg/dL (70-99) Calcium Level 8.0 mg/dL (8.5-10.1) Test 07/18/17 16:20 07/18/17 16:41 Hemoglobin 8.9 g/dL (13.0-17.5) Hematocrit 26.8 % (39.0-53.0) Mean Corpuscular Hemoglobin Concent 33 g/dL (31-37) Glucose (Fingerstick) 118 mg/dL (70-99) Assessment and Plan Assessmemt and Plan Problems Medical Problems: (1) Hyperglycemia Status: Acute Problems: Comment Review of Relevant I have reviewed the following items yobani (where applicable) has been applied. Labs Laboratory Tests Test 07/17/17 07:15 07/17/17 09:25 07/17/17 12:15 07/17/17 17:07 Glucose (Fingerstick) 110 mg/dL (70-99) 126 mg/dL (70-99) 146 mg/dL (70-99) White Blood Count 8.5 x10^3/uL (4.0-11.0) Red Blood Count 3.04 x10^6/uL (4.30-5.70) Hemoglobin 9.0 g/dL (13.0-17.5) Hematocrit 27.0 % (39.0-53.0) Mean Corpuscular Volume 89 fL (79-100) Mean Corpuscular Hemoglobin 30 pg (25-35) Mean Corpuscular Hemoglobin Concent 34 g/dL (31-37) Red Cell Distribution Width 15.6 % (11.5-14.5) Platelet Count 201 x10^3/uL (140-400) Neutrophils (%) (Auto) 61 % (31-73) Lymphocytes (%) (Auto) 29 % (24-48) Monocytes (%) (Auto) 5 % (0-9) Eosinophils (%) (Auto) 4 % (0-3) Basophils (%) (Auto) 0 % (0-3) Neutrophils # (Auto) 5.2 x10^3uL (1.8-7.7) Lymphocytes # (Auto) 2.5 x10^3/uL (1.0-4.8) Monocytes # (Auto) 0.4 x10^3/uL (0.0-1.1) Eosinophils # (Auto) 0.3 x10^3/uL (0.0-0.7) Basophils # (Auto) 0.0 x10^3/uL (0.0-0.2) Prothrombin Time 14.1 SEC (11.7-14.0) Prothromb Time International Ratio 1.2 (0.8-1.1) Sodium Level 139 mmol/L (136-145) Potassium Level 3.5 mmol/L (3.5-5.1) Chloride Level 108 mmol/L (98-107) Carbon Dioxide Level 24 mmol/L (21-32) Anion Gap 7 (6-14) Blood Urea Nitrogen 32 mg/dL (8-26) Creatinine 1.4 mg/dL (0.7-1.3) Estimated GFR (Cockcroft-Gault) 63.2 Glucose Level 102 mg/dL (70-99) Calcium Level 8.5 mg/dL (8.5-10.1) Test 07/17/17 20:15 07/18/17 07:37 07/18/17 10:00 07/18/17 10:42 Glucose (Fingerstick) 158 mg/dL (70-99) 113 mg/dL (70-99) 85 mg/dL (70-99) White Blood Count 8.6 x10^3/uL (4.0-11.0) Red Blood Count 2.47 x10^6/uL (4.30-5.70) Hemoglobin 7.5 g/dL (13.0-17.5) Hematocrit 22.1 % (39.0-53.0) Mean Corpuscular Volume 90 fL (79-100) Mean Corpuscular Hemoglobin 30 pg (25-35) Mean Corpuscular Hemoglobin Concent 34 g/dL (31-37) Red Cell Distribution Width 15.7 % (11.5-14.5) Platelet Count 204 x10^3/uL (140-400) Neutrophils (%) (Auto) 58 % (31-73) Lymphocytes (%) (Auto) 31 % (24-48) Monocytes (%) (Auto) 6 % (0-9) Eosinophils (%) (Auto) 4 % (0-3) Basophils (%) (Auto) 1 % (0-3) Neutrophils # (Auto) 5.0 x10^3uL (1.8-7.7) Lymphocytes # (Auto) 2.7 x10^3/uL (1.0-4.8) Monocytes # (Auto) 0.5 x10^3/uL (0.0-1.1) Eosinophils # (Auto) 0.3 x10^3/uL (0.0-0.7) Basophils # (Auto) 0.0 x10^3/uL (0.0-0.2) Sodium Level 143 mmol/L (136-145) Potassium Level 3.6 mmol/L (3.5-5.1) Chloride Level 110 mmol/L (98-107) Carbon Dioxide Level 25 mmol/L (21-32) Anion Gap 8 (6-14) Blood Urea Nitrogen 30 mg/dL (8-26) Creatinine 1.3 mg/dL (0.7-1.3) Estimated GFR (Cockcroft-Gault) 68.8 Glucose Level 95 mg/dL (70-99) Calcium Level 8.0 mg/dL (8.5-10.1) Test 07/18/17 15:31 07/18/17 16:20 07/18/17 16:41 Glucose (Fingerstick) 112 mg/dL (70-99) 118 mg/dL (70-99) Hemoglobin 8.9 g/dL (13.0-17.5) Hematocrit 26.8 % (39.0-53.0) Mean Corpuscular Hemoglobin Concent 33 g/dL (31-37) Laboratory Tests Test 07/18/17 07:37 07/18/17 10:00 07/18/17 10:42 07/18/17 15:31 Glucose (Fingerstick) 113 mg/dL (70-99) 85 mg/dL (70-99) 112 mg/dL (70-99) White Blood Count 8.6 x10^3/uL (4.0-11.0) Red Blood Count 2.47 x10^6/uL (4.30-5.70) Hemoglobin 7.5 g/dL (13.0-17.5) Hematocrit 22.1 % (39.0-53.0) Mean Corpuscular Volume 90 fL (79-100) Mean Corpuscular Hemoglobin 30 pg (25-35) Mean Corpuscular Hemoglobin Concent 34 g/dL (31-37) Red Cell Distribution Width 15.7 % (11.5-14.5) Platelet Count 204 x10^3/uL (140-400) Neutrophils (%) (Auto) 58 % (31-73) Lymphocytes (%) (Auto) 31 % (24-48) Monocytes (%) (Auto) 6 % (0-9) Eosinophils (%) (Auto) 4 % (0-3) Basophils (%) (Auto) 1 % (0-3) Neutrophils # (Auto) 5.0 x10^3uL (1.8-7.7) Lymphocytes # (Auto) 2.7 x10^3/uL (1.0-4.8) Monocytes # (Auto) 0.5 x10^3/uL (0.0-1.1) Eosinophils # (Auto) 0.3 x10^3/uL (0.0-0.7) Basophils # (Auto) 0.0 x10^3/uL (0.0-0.2) Sodium Level 143 mmol/L (136-145) Potassium Level 3.6 mmol/L (3.5-5.1) Chloride Level 110 mmol/L (98-107) Carbon Dioxide Level 25 mmol/L (21-32) Anion Gap 8 (6-14) Blood Urea Nitrogen 30 mg/dL (8-26) Creatinine 1.3 mg/dL (0.7-1.3) Estimated GFR (Cockcroft-Gault) 68.8 Glucose Level 95 mg/dL (70-99) Calcium Level 8.0 mg/dL (8.5-10.1) Test 07/18/17 16:20 07/18/17 16:41 Hemoglobin 8.9 g/dL (13.0-17.5) Hematocrit 26.8 % (39.0-53.0) Mean Corpuscular Hemoglobin Concent 33 g/dL (31-37) Glucose (Fingerstick) 118 mg/dL (70-99) Microbiology 07/15/17 Blood Culture - Preliminary, Resulted NO GROWTH AFTER 3 DAYS 07/11/17 Urine Culture - Final, Complete 07/11/17 Urine Culture Result 1 ([facility]) - Final, Complete 07/11/17 Antimicrobic Susceptibility - Final, Complete 07/14/17 Gram Stain - Final, Complete Medications Current Medications Sodium Chloride 1,000 ml @ 1,000 mls/hr 1X ONCE IV Last administered on 07/11 18:11; Start 07/11/17 at 18:00; Stop 07/11/17 at 18:59; Status DC Insulin Human Regular (NovoLIN R VIAL) 10 unit 1X ONCE IV Last administered on 07/11/17 18:56; Start 07/11/17 at 19:00; Stop 07/11/17 at 19:01; Status DC Acetaminophen (Tylenol) 650 mg PRN Q4HRS PRN PO MILD PAIN Last administered on 07/13/17 21:15; Start 07/12/17 at 13:00 Clopidogrel Bisulfate (Plavix) 75 mg DAILY PO Last administered on 07/18/17 18:03; Start 07/12/17 at 14:00 Docusate Sodium (Colace) 100 mg DAILY PO Last administered on 07/12/17 18:03 ; Start 07/12/17 at 14:00 Acetaminophen/ Hydrocodone Bitart (Lortab 5/325) 1 tab PRN Q6HRS PRN PO MODERATE PAIN; Start 07/12/17 at 13:00 Losartan Potassium (Cozaar) 50 mg QHS PO Last administered on 07/18/17 21:04 ; Start 07/12/17 at 21:00 Tamsulosin HCl (Flomax) 0.4 mg QHS PO Last administered on 07/18/17 21:04; Start 07/12/17 at 21:00 Insulin Detemir (Levemir) 19 units QHS SQ Last administered on 07/13/17 21:22 ; Start 07/12/17 at 21:00; Stop 07/14/17 at 12:26; Status DC Insulin Aspart (NovoLOG) 7 units TIDAC SQ Last administered on 07/17/17 17:30 ; Start 07/12/17 at 16:30 Piperacillin Sod/ Tazobactam Sod 3.375 gm/Dextrose 50 ml @ 100 mls/hr Q6HRS IV ; Start 07/12/17 at 16:00; Status Cancel Piperacillin Sod/ Tazobactam Sod (Zosyn) 3.375 gm Q6HRS IVP Last administered on 07/18/17 19:04; Start 07/12/17 at 16:00 Enoxaparin Sodium (Lovenox 40mg Syringe) 40 mg Q24H SQ Last administered on 18:04; Start 07/13/17 at 15:00 Insulin Detemir (Levemir) 22 units QHS SQ Last administered on 07/18/17 21:07 ; Start 07/14/17 at 21:00 Lactobacillus Rhamnosus (Culturelle) 1 cap BID PO Last administered on 21:04; Start 07/14/17 at 21:00 Sodium Chloride 500 ml @ 500 mls/hr 1X ONCE IV Last administered on 09:09; Start 07/15/17 at 09:00; Stop 07/15/17 at 09:59; Status DC Ceftriaxone Sodium 1 gm/ Dextrose 50 ml @ 100 mls/hr Q24H IV ; Start 07/16/17 at 12:45; Status UNV Ondansetron HCl (Zofran) 4 mg PRN Q6HRS PRN IV NAUSEA/VOMITING; Start at 12:45 Acetaminophen (Tylenol) 650 mg PRN Q6HRS PRN PO pain; Start 07/16/17 at 12:45 ; Status UNV Insulin Aspart (NovoLOG) 0-9 UNITS TIDWMEALS SQ Last administered on 17:33; Start 07/16/17 at 17:00 Dextrose (Dextrose 50%-Water Syringe) 12.5 gm PRN Q15MIN PRN IV SEE COMMENTS; Start 07/16/17 at 12:45 Oxycodone/ Acetaminophen (Percocet 5/325) 1 tab PRN Q4HRS PRN PO PAIN; Start 07/16/17 at 12:45 Ceftriaxone Sodium (Rocephin) 1 gm Q24H IVP Last administered on 07/16/17 13: 52; Start 07/16/17 at 13:00; Stop 07/16/17 at 14:30; Status DC Piperacillin Sod/ Tazobactam Sod (Zosyn Per Pharmacy) 1 each PRN DAILY PRN MC SEE COMMENTS; Start 07/16/17 at 14:30; Stop 07/18/17 at 15:44; Status DC Ondansetron HCl (Zofran) 4 mg PRN Q6HRS PRN IV NAUSEA/VOMITING; Start at 07:45; Stop 07/19/17 at 07:44 Fentanyl Citrate (Fentanyl 2ml Vial) 25 mcg PRN Q5MIN PRN IV MILD PAIN; Start 07/18/17 at 07:45; Stop 07/19/17 at 07:44 Fentanyl Citrate (Fentanyl 2ml Vial) 50 mcg PRN Q5MIN PRN IV MODERATE PAIN; Start 07/18/17 at 07:45; Stop 07/19/17 at 07:44 Morphine Sulfate 1 mg PRN Q10MIN PRN IV SEVERE PAIN; Start 07/18/17 at 07:45; Stop 07/19/17 at 07:44 Ringer's Solution 1,000 ml @ 30 mls/hr Q24H IV ; Start 07/18/17 at 07:43; Stop 07/18/17 at 19:42; Status DC Lidocaine HCl (Xylocaine-Mpf 1% Vial) 2 ml 1X PRN PRN ID IV START; Start 07/18 at 07:45; Stop 07/19/17 at 07:44 Hydromorphone HCl (Dilaudid) 0.5 mg PRN Q10MIN PRN IV SEV PAIN, Second choice; Start 07/18/17 at 07:45; Stop 07/19/17 at 07:44 Prochlorperazine Edisylate (Compazine) 5 mg PACU PRN PRN IV NAUSEA, MRX1; Start 07/18/17 at 07:45; Stop 07/19/17 at 07:44 Sevoflurane (Ultane) 90 ml STK-MED ONCE IH ; Start 07/18/17 at 11:37; Stop at 12:47; Status DC Neostigmine Methylsulfate (Bloxiverz) 10 mg STK-MED ONCE .ROUTE ; Start at 11:37; Stop 07/18/17 at 12:47; Status DC Midazolam HCl (Versed) 2 mg STK-MED ONCE .ROUTE ; Start 07/18/17 at 11:38; Stop 07/18/17 at 12:47; Status DC Fentanyl Citrate (Fentanyl 2ml Vial) 100 mcg STK-MED ONCE .ROUTE ; Start at 11:38; Stop 07/18/17 at 12:47; Status DC Glycopyrrolate (Robinul) 1 mg STK-MED ONCE .ROUTE ; Start 07/18/17 at 11:38; Stop 07/18/17 at 12:47; Status DC Rocuronium [place] (Zemuron) 50 mg STK-MED ONCE .ROUTE ; Start 07/18/17 at 11: 38; Stop 07/18/17 at 12:47; Status DC Propofol 20 ml @ As Directed STK-MED ONCE IV ; Start 07/18/17 at 11:38; Stop 07/18/17 at 12:47; Status DC Lidocaine HCl (Lidocaine Pf 2% Vial) 5 ml STK-MED ONCE .ROUTE ; Start 07/18/17 at 11:38; Stop 07/18/17 at 12:47; Status DC Dexamethasone Sodium Phosphate (Decadron) 20 mg STK-MED ONCE .ROUTE ; Start at 11:38; Stop 07/18/17 at 12:47; Status DC Ondansetron HCl (Zofran) 4 mg STK-MED ONCE .ROUTE ; Start 07/18/17 at 11:38; Stop 07/18/17 at 12:48; Status DC Cefazolin Sodium 1 gm/Sodium Chloride 250 ml @ 250 mls/hr 1X PERIOP ONCE IRR ; Start 07/18/17 at 14:00; Stop 07/18/17 at 14:59; Status DC Vasopressin (Vasostrict) 20 unit STK-MED ONCE .ROUTE ; Start 07/18/17 at 14:27 ; Stop 07/18/17 at 14:28; Status DC Fentanyl Citrate (Fentanyl 2ml Vial) 100 mcg STK-MED ONCE .ROUTE ; Start at 14:42; Stop 07/18/17 at 14:43; Status DC Morphine Sulfate 2 mg PRN Q2HR PRN IV PAIN; Start 07/18/17 at 15:30 Sodium Chloride 1,000 ml @ 100 mls/hr Q10H PRN IV SEE COMMENTS; Start at 12:00 Active Scripts Active Flomax (Tamsulosin Hcl) 0.4 Mg Cap.er.24h 0.4 Mg PO QHS Reported Humalog (Insulin Lispro) 100 Unit/1 Ml Insuln.pen 7 Unit SQ TIDWMEALS Tylenol (Acetaminophen) 325 Mg Tablet 650 Mg PO PRN Q4HRS PRN Losartan Potassium 50 Mg Tablet 50 Mg PO QHS Lantus Solostar (Insulin Glargine,Hum.rec.anlog) 100 Unit/1 Ml Insuln.pen 19 Unit SQ QHS Colace (Docusate Sodium) 100 Mg Capsule 100 Mg PO DAILY Clopidogrel (Clopidogrel Bisulfate) 75 Mg Tablet 75 Mg PO DAILY Hydrocodone-Apap 5-325 (Hydrocodone Bit/Acetaminophen) 1 Each Tablet 1 Tab PO PRN Q6HRS PRN Vitals/I & O Vital Sign - Last 24 Hours 07/17/17 07/18/17 07/18/17 07/18/17 23:56 03:09 07:10 08:00 Temp 98.8 98.8 98.2 98.8 98.8 98.2 Pulse 81 78 78 Resp 24 20 18 B/P (MAP) 160/82 (108) 151/74 (99) 143/75 (97) Pulse Ox 97 97 98 O2 Delivery Room Air Room Air Room Air Room Air 07/18/17 07/18/17 07/18/17 07/18/17 10:41 15:25 15:25 15:40 Temp 97.8 97.8 97.8 97.8 Pulse 73 66 66 Resp 20 16 18 B/P (MAP) 161/79 160/86 134/59 Pulse Ox 97 100 99 O2 Delivery Room Air Mask Simple Mask Simple Mask O2 Flow Rate 10 10 10 07/18/17 07/18/17 07/18/17 07/18/17 15:55 16:10 16:25 17:30 Temp 97.4 97.4 Pulse 64 64 68 66 Resp 16 18 20 B/P (MAP) 156/82 150/77 140/77 146/78 (100) Pulse Ox 98 99 99 99 O2 Delivery Room Air Room Air Room Air Room Air 07/18/17 07/18/17 07/18/17 07/18/17 17:45 18:00 18:15 18:30 Pulse 67 79 81 76 B/P (MAP) 143/81 (101) 158/85 (109) 168/89 (115) 167/91 (116) O2 Delivery Room Air Room Air Room Air Room Air 07/18/17 07/18/17 07/18/17 07/18/17 19:42 20:00 21:04 23:08 Temp 98.1 98.1 98.1 98.1 Pulse 87 87 99 Resp 18 18 B/P (MAP) 156/88 (110) 156/88 127/78 (94) Pulse Ox 100 99 O2 Delivery Room Air Room Air Room Air Intake and Output 07/17/17 07/17/17 07/18/17 15:00 23:00 07:00 Intake Total 1100 ml Output Total 500 ml 700 ml Balance 600 ml -700 ml DOMENICA CHRISTIANSON MD Jul 18, 2017 23:13
[2017-07-19] MEDS: PIPERACILLIN/TAZO IV Push 3.375 GM VIAL. IVP SCH ×4 (00:29→17:38)
[2017-07-19 03:21] VITALS: BP 132/78
[2017-07-19 06:17] LABS: BASO % 0 % (0-3); EOS % 0 % (0-3); HEMATOCRIT 23.3 % (39.0-53.0); HEMOGLOBIN 7.9 g/dL (13.0-17.5); LYMPH # 2.9 x10^3/uL (1.0-4.8); LYMPH % 24 % (24-48); MEAN CORPUSCULAR HEMOGLOBIN 30 pg (25-35); MEAN CORPUSCULAR HGB CONC 34 g/dL (31-37); MEAN CORPUSCULAR VOLUME 87 fL (79-100); MONO % 7 % (0-9); NEUT % 68 % (31-73); PLATELET COUNT 206 x10^3/uL (140-400); RED BLOOD COUNT 2.68 x10^6/uL (4.30-5.70); RED CELL DISTRIBUTION WIDTH 15.5 % (11.5-14.5)
[2017-07-19 06:45] LABS: CALCIUM 8.1 mg/dL (8.5-10.1); CREATININE 1.5 mg/dL (0.7-1.3); GFR 58.4
[2017-07-19 07:35] VITALS: BP 133/78
--- NOTE | 2017-07-19 08:03 | PDOC ---
SURGICAL PROGRESS NOTE Subjective no complaints. Had dressing change during the night due to saturation Vital Signs Vital Signs Date Time Temp Pulse Resp B/P (MAP) Pulse Ox O2 Delivery O2 Flow Rate FiO2 07/19/17 07:35 99.0 82 17 133/78 (96) 99 Room Air 99.0 07/18/17 15:40 10 I&O Intake and Output 07/19/17 07:00 Intake Total 2250 ml Output Total 1565 ml Balance 685 ml Intake Oral 250 ml IV Total 2000 ml Output Urine Total 1315 ml Drainage Total 50 ml Estimated Blood Loss 200 ml Extremities: Other (right aka stump dressing dry; minimal drainage per DEWAYNE) Labs Laboratory Tests Test 07/17/17 09:25 07/17/17 12:15 07/17/17 17:07 07/17/17 20:15 White Blood Count 8.5 x10^3/uL (4.0-11.0) Red Blood Count 3.04 x10^6/uL (4.30-5.70) Hemoglobin 9.0 g/dL (13.0-17.5) Hematocrit 27.0 % (39.0-53.0) Mean Corpuscular Volume 89 fL (79-100) Mean Corpuscular Hemoglobin 30 pg (25-35) Mean Corpuscular Hemoglobin Concent 34 g/dL (31-37) Red Cell Distribution Width 15.6 % (11.5-14.5) Platelet Count 201 x10^3/uL (140-400) Neutrophils (%) (Auto) 61 % (31-73) Lymphocytes (%) (Auto) 29 % (24-48) Monocytes (%) (Auto) 5 % (0-9) Eosinophils (%) (Auto) 4 % (0-3) Basophils (%) (Auto) 0 % (0-3) Neutrophils # (Auto) 5.2 x10^3uL (1.8-7.7) Lymphocytes # (Auto) 2.5 x10^3/uL (1.0-4.8) Monocytes # (Auto) 0.4 x10^3/uL (0.0-1.1) Eosinophils # (Auto) 0.3 x10^3/uL (0.0-0.7) Basophils # (Auto) 0.0 x10^3/uL (0.0-0.2) Prothrombin Time 14.1 SEC (11.7-14.0) Prothromb Time International Ratio 1.2 (0.8-1.1) Sodium Level 139 mmol/L (136-145) Potassium Level 3.5 mmol/L (3.5-5.1) Chloride Level 108 mmol/L (98-107) Carbon Dioxide Level 24 mmol/L (21-32) Anion Gap 7 (6-14) Blood Urea Nitrogen 32 mg/dL (8-26) Creatinine 1.4 mg/dL (0.7-1.3) Estimated GFR (Cockcroft-Gault) 63.2 Glucose Level 102 mg/dL (70-99) Calcium Level 8.5 mg/dL (8.5-10.1) Glucose (Fingerstick) 126 mg/dL (70-99) 146 mg/dL (70-99) 158 mg/dL (70-99) Test 07/18/17 07:37 07/18/17 10:00 07/18/17 10:42 07/18/17 15:31 Glucose (Fingerstick) 113 mg/dL (70-99) 85 mg/dL (70-99) 112 mg/dL (70-99) White Blood Count 8.6 x10^3/uL (4.0-11.0) Red Blood Count 2.47 x10^6/uL (4.30-5.70) Hemoglobin 7.5 g/dL (13.0-17.5) Hematocrit 22.1 % (39.0-53.0) Mean Corpuscular Volume 90 fL (79-100) Mean Corpuscular Hemoglobin 30 pg (25-35) Mean Corpuscular Hemoglobin Concent 34 g/dL (31-37) Red Cell Distribution Width 15.7 % (11.5-14.5) Platelet Count 204 x10^3/uL (140-400) Neutrophils (%) (Auto) 58 % (31-73) Lymphocytes (%) (Auto) 31 % (24-48) Monocytes (%) (Auto) 6 % (0-9) Eosinophils (%) (Auto) 4 % (0-3) Basophils (%) (Auto) 1 % (0-3) Neutrophils # (Auto) 5.0 x10^3uL (1.8-7.7) Lymphocytes # (Auto) 2.7 x10^3/uL (1.0-4.8) Monocytes # (Auto) 0.5 x10^3/uL (0.0-1.1) Eosinophils # (Auto) 0.3 x10^3/uL (0.0-0.7) Basophils # (Auto) 0.0 x10^3/uL (0.0-0.2) Sodium Level 143 mmol/L (136-145) Potassium Level 3.6 mmol/L (3.5-5.1) Chloride Level 110 mmol/L (98-107) Carbon Dioxide Level 25 mmol/L (21-32) Anion Gap 8 (6-14) Blood Urea Nitrogen 30 mg/dL (8-26) Creatinine 1.3 mg/dL (0.7-1.3) Estimated GFR (Cockcroft-Gault) 68.8 Glucose Level 95 mg/dL (70-99) Calcium Level 8.0 mg/dL (8.5-10.1) Test 07/18/17 16:20 07/18/17 16:41 07/19/17 06:00 07/19/17 07:38 Hemoglobin 8.9 g/dL (13.0-17.5) 7.9 g/dL (13.0-17.5) Hematocrit 26.8 % (39.0-53.0) 23.3 % (39.0-53.0) Mean Corpuscular Hemoglobin Concent 33 g/dL (31-37) 34 g/dL (31-37) Glucose (Fingerstick) 118 mg/dL (70-99) 241 mg/dL (70-99) White Blood Count 12.0 x10^3/uL (4.0-11.0) Red Blood Count 2.68 x10^6/uL (4.30-5.70) Mean Corpuscular Volume 87 fL (79-100) Mean Corpuscular Hemoglobin 30 pg (25-35) Red Cell Distribution Width 15.5 % (11.5-14.5) Platelet Count 206 x10^3/uL (140-400) Neutrophils (%) (Auto) 68 % (31-73) Lymphocytes (%) (Auto) 24 % (24-48) Monocytes (%) (Auto) 7 % (0-9) Eosinophils (%) (Auto) 0 % (0-3) Basophils (%) (Auto) 0 % (0-3) Neutrophils # (Auto) 8.2 x10^3uL (1.8-7.7) Lymphocytes # (Auto) 2.9 x10^3/uL (1.0-4.8) Monocytes # (Auto) 0.9 x10^3/uL (0.0-1.1) Eosinophils # (Auto) 0.0 x10^3/uL (0.0-0.7) Basophils # (Auto) 0.0 x10^3/uL (0.0-0.2) Sodium Level 140 mmol/L (136-145) Potassium Level 4.0 mmol/L (3.5-5.1) Chloride Level 110 mmol/L (98-107) Carbon Dioxide Level 23 mmol/L (21-32) Anion Gap 7 (6-14) Blood Urea Nitrogen 32 mg/dL (8-26) Creatinine 1.5 mg/dL (0.7-1.3) Estimated GFR (Cockcroft-Gault) 58.4 Glucose Level 246 mg/dL (70-99) Calcium Level 8.1 mg/dL (8.5-10.1) Laboratory Tests Test 07/18/17 10:00 07/18/17 10:42 07/18/17 15:31 07/18/17 16:20 White Blood Count 8.6 x10^3/uL (4.0-11.0) Red Blood Count 2.47 x10^6/uL (4.30-5.70) Hemoglobin 7.5 g/dL (13.0-17.5) 8.9 g/dL (13.0-17.5) Hematocrit 22.1 % (39.0-53.0) 26.8 % (39.0-53.0) Mean Corpuscular Volume 90 fL (79-100) Mean Corpuscular Hemoglobin 30 pg (25-35) Mean Corpuscular Hemoglobin Concent 34 g/dL (31-37) 33 g/dL (31-37) Red Cell Distribution Width 15.7 % (11.5-14.5) Platelet Count 204 x10^3/uL (140-400) Neutrophils (%) (Auto) 58 % (31-73) Lymphocytes (%) (Auto) 31 % (24-48) Monocytes (%) (Auto) 6 % (0-9) Eosinophils (%) (Auto) 4 % (0-3) Basophils (%) (Auto) 1 % (0-3) Neutrophils # (Auto) 5.0 x10^3uL (1.8-7.7) Lymphocytes # (Auto) 2.7 x10^3/uL (1.0-4.8) Monocytes # (Auto) 0.5 x10^3/uL (0.0-1.1) Eosinophils # (Auto) 0.3 x10^3/uL (0.0-0.7) Basophils # (Auto) 0.0 x10^3/uL (0.0-0.2) Sodium Level 143 mmol/L (136-145) Potassium Level 3.6 mmol/L (3.5-5.1) Chloride Level 110 mmol/L (98-107) Carbon Dioxide Level 25 mmol/L (21-32) Anion Gap 8 (6-14) Blood Urea Nitrogen 30 mg/dL (8-26) Creatinine 1.3 mg/dL (0.7-1.3) Estimated GFR (Cockcroft-Gault) 68.8 Glucose Level 95 mg/dL (70-99) Calcium Level 8.0 mg/dL (8.5-10.1) Glucose (Fingerstick) 85 mg/dL (70-99) 112 mg/dL (70-99) Test 07/18/17 16:41 07/19/17 06:00 07/19/17 07:38 Glucose (Fingerstick) 118 mg/dL (70-99) 241 mg/dL (70-99) White Blood Count 12.0 x10^3/uL (4.0-11.0) Red Blood Count 2.68 x10^6/uL (4.30-5.70) Hemoglobin 7.9 g/dL (13.0-17.5) Hematocrit 23.3 % (39.0-53.0) Mean Corpuscular Volume 87 fL (79-100) Mean Corpuscular Hemoglobin 30 pg (25-35) Mean Corpuscular Hemoglobin Concent 34 g/dL (31-37) Red Cell Distribution Width 15.5 % (11.5-14.5) Platelet Count 206 x10^3/uL (140-400) Neutrophils (%) (Auto) 68 % (31-73) Lymphocytes (%) (Auto) 24 % (24-48) Monocytes (%) (Auto) 7 % (0-9) Eosinophils (%) (Auto) 0 % (0-3) Basophils (%) (Auto) 0 % (0-3) Neutrophils # (Auto) 8.2 x10^3uL (1.8-7.7) Lymphocytes # (Auto) 2.9 x10^3/uL (1.0-4.8) Monocytes # (Auto) 0.9 x10^3/uL (0.0-1.1) Eosinophils # (Auto) 0.0 x10^3/uL (0.0-0.7) Basophils # (Auto) 0.0 x10^3/uL (0.0-0.2) Sodium Level 140 mmol/L (136-145) Potassium Level 4.0 mmol/L (3.5-5.1) Chloride Level 110 mmol/L (98-107) Carbon Dioxide Level 23 mmol/L (21-32) Anion Gap 7 (6-14) Blood Urea Nitrogen 32 mg/dL (8-26) Creatinine 1.5 mg/dL (0.7-1.3) Estimated GFR (Cockcroft-Gault) 58.4 Glucose Level 246 mg/dL (70-99) Calcium Level 8.1 mg/dL (8.5-10.1) Problem List Problems Medical Problems: (1) Hyperglycemia Status: Acute Assessment/Plan Imp: 1. pt stable post op right AKA, 2. anemia Hgb 7.9 P: 1. recheck hgb in am 2. will remove drain tomorrow. Problems: LESLIE GIPSON II, MD Jul 19, 2017 08:02
[2017-07-19] MEDS: CLOPIDOGREL BISULFATE 75 MG TABLET PO SCH (08:11)
[2017-07-19] MEDS: LACTOBACILLUS RHAMNOSUS GG 1 CAPSULE. PO SCH ×2 (08:11→21:49)
[2017-07-19] MEDS: INSULIN ASPART 300 UNITS/3 ML INSULN.PEN SQ SCH ×6 (08:22→17:46)
[2017-07-19] MEDS: DOCUSATE SODIUM 100 MG CAPSULE. PO SCH (08:23)
[2017-07-19] MEDS: ENOXAPARIN 40 MG/0.4 ML SYRINGE. SQ SCH (08:23)
--- NOTE | 2017-07-19 09:36 | PDOC ---
PROGRESS NOTES Chief Complaint Chief Complaint LE cellulitis Diabetic foot ulcers ASSESSMENT ANS PLAN: 1. Cellulitis with diabetic ulcers R thigh/B stumps: s/p debridement 07/13. 2. DM2: HgbA1c 8.6. 3. PVD: s/p B BKA. 4. UTI: K.pneumoniae, pansensitive. 5. Anemia: of CKD 3 History of Present Illness History of Present Illness leg pain, phantom pain, tingling and burning pain Poor healing previously significant peripheral vascular disease. BS slightly higher post op, cont PRN ssi cont IV zosyn s/p AKA start gabapentin for nerve pain Vitals Vitals Vital Signs Date Time Temp Pulse Resp B/P (MAP) Pulse Ox O2 Delivery O2 Flow Rate FiO2 07/19/17 08:00 Room Air 07/19/17 07:35 99.0 82 17 133/78 (96) 99 99.0 07/18/17 15:40 10 Physical Exam General: Alert, Oriented X3, Cooperative, No acute distress Heart: Regular rate, No murmurs Lungs: Clear Abdomen: Soft, No tenderness Extremities: Other (right aka stump dressing dry; minimal drainage per DEWAYNE) Skin: No rashes, Other (bilat ulcers dressed) Labs LABS Laboratory Tests Test 07/18/17 10:00 07/18/17 10:42 07/18/17 15:31 07/18/17 16:20 White Blood Count 8.6 x10^3/uL (4.0-11.0) Red Blood Count 2.47 x10^6/uL (4.30-5.70) Hemoglobin 7.5 g/dL (13.0-17.5) 8.9 g/dL (13.0-17.5) Hematocrit 22.1 % (39.0-53.0) 26.8 % (39.0-53.0) Mean Corpuscular Volume 90 fL (79-100) Mean Corpuscular Hemoglobin 30 pg (25-35) Mean Corpuscular Hemoglobin Concent 34 g/dL (31-37) 33 g/dL (31-37) Red Cell Distribution Width 15.7 % (11.5-14.5) Platelet Count 204 x10^3/uL (140-400) Neutrophils (%) (Auto) 58 % (31-73) Lymphocytes (%) (Auto) 31 % (24-48) Monocytes (%) (Auto) 6 % (0-9) Eosinophils (%) (Auto) 4 % (0-3) Basophils (%) (Auto) 1 % (0-3) Neutrophils # (Auto) 5.0 x10^3uL (1.8-7.7) Lymphocytes # (Auto) 2.7 x10^3/uL (1.0-4.8) Monocytes # (Auto) 0.5 x10^3/uL (0.0-1.1) Eosinophils # (Auto) 0.3 x10^3/uL (0.0-0.7) Basophils # (Auto) 0.0 x10^3/uL (0.0-0.2) Sodium Level 143 mmol/L (136-145) Potassium Level 3.6 mmol/L (3.5-5.1) Chloride Level 110 mmol/L (98-107) Carbon Dioxide Level 25 mmol/L (21-32) Anion Gap 8 (6-14) Blood Urea Nitrogen 30 mg/dL (8-26) Creatinine 1.3 mg/dL (0.7-1.3) Estimated GFR (Cockcroft-Gault) 68.8 Glucose Level 95 mg/dL (70-99) Calcium Level 8.0 mg/dL (8.5-10.1) Glucose (Fingerstick) 85 mg/dL (70-99) 112 mg/dL (70-99) Test 07/18/17 16:41 07/19/17 06:00 07/19/17 07:38 Glucose (Fingerstick) 118 mg/dL (70-99) 241 mg/dL (70-99) White Blood Count 12.0 x10^3/uL (4.0-11.0) Red Blood Count 2.68 x10^6/uL (4.30-5.70) Hemoglobin 7.9 g/dL (13.0-17.5) Hematocrit 23.3 % (39.0-53.0) Mean Corpuscular Volume 87 fL (79-100) Mean Corpuscular Hemoglobin 30 pg (25-35) Mean Corpuscular Hemoglobin Concent 34 g/dL (31-37) Red Cell Distribution Width 15.5 % (11.5-14.5) Platelet Count 206 x10^3/uL (140-400) Neutrophils (%) (Auto) 68 % (31-73) Lymphocytes (%) (Auto) 24 % (24-48) Monocytes (%) (Auto) 7 % (0-9) Eosinophils (%) (Auto) 0 % (0-3) Basophils (%) (Auto) 0 % (0-3) Neutrophils # (Auto) 8.2 x10^3uL (1.8-7.7) Lymphocytes # (Auto) 2.9 x10^3/uL (1.0-4.8) Monocytes # (Auto) 0.9 x10^3/uL (0.0-1.1) Eosinophils # (Auto) 0.0 x10^3/uL (0.0-0.7) Basophils # (Auto) 0.0 x10^3/uL (0.0-0.2) Sodium Level 140 mmol/L (136-145) Potassium Level 4.0 mmol/L (3.5-5.1) Chloride Level 110 mmol/L (98-107) Carbon Dioxide Level 23 mmol/L (21-32) Anion Gap 7 (6-14) Blood Urea Nitrogen 32 mg/dL (8-26) Creatinine 1.5 mg/dL (0.7-1.3) Estimated GFR (Cockcroft-Gault) 58.4 Glucose Level 246 mg/dL (70-99) Calcium Level 8.1 mg/dL (8.5-10.1) Assessment and Plan Assessmemt and Plan Problems Medical Problems: (1) Hyperglycemia Status: Acute Problems: Comment Review of Relevant I have reviewed the following items yobani (where applicable) has been applied. Labs Laboratory Tests Test 07/17/17 12:15 07/17/17 17:07 07/17/17 20:15 07/18/17 07:37 Glucose (Fingerstick) 126 mg/dL (70-99) 146 mg/dL (70-99) 158 mg/dL (70-99) 113 mg/dL (70-99) Test 07/18/17 10:00 07/18/17 10:42 07/18/17 15:31 07/18/17 16:20 White Blood Count 8.6 x10^3/uL (4.0-11.0) Red Blood Count 2.47 x10^6/uL (4.30-5.70) Hemoglobin 7.5 g/dL (13.0-17.5) 8.9 g/dL (13.0-17.5) Hematocrit 22.1 % (39.0-53.0) 26.8 % (39.0-53.0) Mean Corpuscular Volume 90 fL (79-100) Mean Corpuscular Hemoglobin 30 pg (25-35) Mean Corpuscular Hemoglobin Concent 34 g/dL (31-37) 33 g/dL (31-37) Red Cell Distribution Width 15.7 % (11.5-14.5) Platelet Count 204 x10^3/uL (140-400) Neutrophils (%) (Auto) 58 % (31-73) Lymphocytes (%) (Auto) 31 % (24-48) Monocytes (%) (Auto) 6 % (0-9) Eosinophils (%) (Auto) 4 % (0-3) Basophils (%) (Auto) 1 % (0-3) Neutrophils # (Auto) 5.0 x10^3uL (1.8-7.7) Lymphocytes # (Auto) 2.7 x10^3/uL (1.0-4.8) Monocytes # (Auto) 0.5 x10^3/uL (0.0-1.1) Eosinophils # (Auto) 0.3 x10^3/uL (0.0-0.7) Basophils # (Auto) 0.0 x10^3/uL (0.0-0.2) Sodium Level 143 mmol/L (136-145) Potassium Level 3.6 mmol/L (3.5-5.1) Chloride Level 110 mmol/L (98-107) Carbon Dioxide Level 25 mmol/L (21-32) Anion Gap 8 (6-14) Blood Urea Nitrogen 30 mg/dL (8-26) Creatinine 1.3 mg/dL (0.7-1.3) Estimated GFR (Cockcroft-Gault) 68.8 Glucose Level 95 mg/dL (70-99) Calcium Level 8.0 mg/dL (8.5-10.1) Glucose (Fingerstick) 85 mg/dL (70-99) 112 mg/dL (70-99) Test 07/18/17 16:41 07/19/17 06:00 07/19/17 07:38 Glucose (Fingerstick) 118 mg/dL (70-99) 241 mg/dL (70-99) White Blood Count 12.0 x10^3/uL (4.0-11.0) Red Blood Count 2.68 x10^6/uL (4.30-5.70) Hemoglobin 7.9 g/dL (13.0-17.5) Hematocrit 23.3 % (39.0-53.0) Mean Corpuscular Volume 87 fL (79-100) Mean Corpuscular Hemoglobin 30 pg (25-35) Mean Corpuscular Hemoglobin Concent 34 g/dL (31-37) Red Cell Distribution Width 15.5 % (11.5-14.5) Platelet Count 206 x10^3/uL (140-400) Neutrophils (%) (Auto) 68 % (31-73) Lymphocytes (%) (Auto) 24 % (24-48) Monocytes (%) (Auto) 7 % (0-9) Eosinophils (%) (Auto) 0 % (0-3) Basophils (%) (Auto) 0 % (0-3) Neutrophils # (Auto) 8.2 x10^3uL (1.8-7.7) Lymphocytes # (Auto) 2.9 x10^3/uL (1.0-4.8) Monocytes # (Auto) 0.9 x10^3/uL (0.0-1.1) Eosinophils # (Auto) 0.0 x10^3/uL (0.0-0.7) Basophils # (Auto) 0.0 x10^3/uL (0.0-0.2) Sodium Level 140 mmol/L (136-145) Potassium Level 4.0 mmol/L (3.5-5.1) Chloride Level 110 mmol/L (98-107) Carbon Dioxide Level 23 mmol/L (21-32) Anion Gap 7 (6-14) Blood Urea Nitrogen 32 mg/dL (8-26) Creatinine 1.5 mg/dL (0.7-1.3) Estimated GFR (Cockcroft-Gault) 58.4 Glucose Level 246 mg/dL (70-99) Calcium Level 8.1 mg/dL (8.5-10.1) Laboratory Tests Test 07/18/17 10:00 07/18/17 10:42 07/18/17 15:31 07/18/17 16:20 White Blood Count 8.6 x10^3/uL (4.0-11.0) Red Blood Count 2.47 x10^6/uL (4.30-5.70) Hemoglobin 7.5 g/dL (13.0-17.5) 8.9 g/dL (13.0-17.5) Hematocrit 22.1 % (39.0-53.0) 26.8 % (39.0-53.0) Mean Corpuscular Volume 90 fL (79-100) Mean Corpuscular Hemoglobin 30 pg (25-35) Mean Corpuscular Hemoglobin Concent 34 g/dL (31-37) 33 g/dL (31-37) Red Cell Distribution Width 15.7 % (11.5-14.5) Platelet Count 204 x10^3/uL (140-400) Neutrophils (%) (Auto) 58 % (31-73) Lymphocytes (%) (Auto) 31 % (24-48) Monocytes (%) (Auto) 6 % (0-9) Eosinophils (%) (Auto) 4 % (0-3) Basophils (%) (Auto) 1 % (0-3) Neutrophils # (Auto) 5.0 x10^3uL (1.8-7.7) Lymphocytes # (Auto) 2.7 x10^3/uL (1.0-4.8) Monocytes # (Auto) 0.5 x10^3/uL (0.0-1.1) Eosinophils # (Auto) 0.3 x10^3/uL (0.0-0.7) Basophils # (Auto) 0.0 x10^3/uL (0.0-0.2) Sodium Level 143 mmol/L (136-145) Potassium Level 3.6 mmol/L (3.5-5.1) Chloride Level 110 mmol/L (98-107) Carbon Dioxide Level 25 mmol/L (21-32) Anion Gap 8 (6-14) Blood Urea Nitrogen 30 mg/dL (8-26) Creatinine 1.3 mg/dL (0.7-1.3) Estimated GFR (Cockcroft-Gault) 68.8 Glucose Level 95 mg/dL (70-99) Calcium Level 8.0 mg/dL (8.5-10.1) Glucose (Fingerstick) 85 mg/dL (70-99) 112 mg/dL (70-99) Test 07/18/17 16:41 07/19/17 06:00 07/19/17 07:38 Glucose (Fingerstick) 118 mg/dL (70-99) 241 mg/dL (70-99) White Blood Count 12.0 x10^3/uL (4.0-11.0) Red Blood Count 2.68 x10^6/uL (4.30-5.70) Hemoglobin 7.9 g/dL (13.0-17.5) Hematocrit 23.3 % (39.0-53.0) Mean Corpuscular Volume 87 fL (79-100) Mean Corpuscular Hemoglobin 30 pg (25-35) Mean Corpuscular Hemoglobin Concent 34 g/dL (31-37) Red Cell Distribution Width 15.5 % (11.5-14.5) Platelet Count 206 x10^3/uL (140-400) Neutrophils (%) (Auto) 68 % (31-73) Lymphocytes (%) (Auto) 24 % (24-48) Monocytes (%) (Auto) 7 % (0-9) Eosinophils (%) (Auto) 0 % (0-3) Basophils (%) (Auto) 0 % (0-3) Neutrophils # (Auto) 8.2 x10^3uL (1.8-7.7) Lymphocytes # (Auto) 2.9 x10^3/uL (1.0-4.8) Monocytes # (Auto) 0.9 x10^3/uL (0.0-1.1) Eosinophils # (Auto) 0.0 x10^3/uL (0.0-0.7) Basophils # (Auto) 0.0 x10^3/uL (0.0-0.2) Sodium Level 140 mmol/L (136-145) Potassium Level 4.0 mmol/L (3.5-5.1) Chloride Level 110 mmol/L (98-107) Carbon Dioxide Level 23 mmol/L (21-32) Anion Gap 7 (6-14) Blood Urea Nitrogen 32 mg/dL (8-26) Creatinine 1.5 mg/dL (0.7-1.3) Estimated GFR (Cockcroft-Gault) 58.4 Glucose Level 246 mg/dL (70-99) Calcium Level 8.1 mg/dL (8.5-10.1) Microbiology 07/15/17 Blood Culture - Preliminary, Resulted NO GROWTH AFTER 3 DAYS 07/11/17 Urine Culture - Final, Complete 07/11/17 Urine Culture Result 1 ([facility]) - Final, Complete 07/11/17 Antimicrobic Susceptibility - Final, Complete 07/14/17 Gram Stain - Final, Complete Medications Current Medications Sodium Chloride 1,000 ml @ 1,000 mls/hr 1X ONCE IV Last administered on 07/11 18:11; Start 07/11/17 at 18:00; Stop 07/11/17 at 18:59; Status DC Insulin Human Regular (NovoLIN R VIAL) 10 unit 1X ONCE IV Last administered on 07/11/17 18:56; Start 07/11/17 at 19:00; Stop 07/11/17 at 19:01; Status DC Acetaminophen (Tylenol) 650 mg PRN Q4HRS PRN PO MILD PAIN Last administered on 07/13/17 21:15; Start 07/12/17 at 13:00 Clopidogrel Bisulfate (Plavix) 75 mg DAILY PO Last administered on 07/19/17 08:11; Start 07/12/17 at 14:00 Docusate Sodium (Colace) 100 mg DAILY PO Last administered on 07/12/17 18:03 ; Start 07/12/17 at 14:00 Acetaminophen/ Hydrocodone Bitart (Lortab 5/325) 1 tab PRN Q6HRS PRN PO MODERATE PAIN; Start 07/12/17 at 13:00 Losartan Potassium (Cozaar) 50 mg QHS PO Last administered on 07/18/17 21:04 ; Start 07/12/17 at 21:00 Tamsulosin HCl (Flomax) 0.4 mg QHS PO Last administered on 07/18/17 21:04; Start 07/12/17 at 21:00 Insulin Detemir (Levemir) 19 units QHS SQ Last administered on 07/13/17 21:22 ; Start 07/12/17 at 21:00; Stop 07/14/17 at 12:26; Status DC Insulin Aspart (NovoLOG) 7 units TIDAC SQ Last administered on 07/19/17 08:22 ; Start 07/12/17 at 16:30 Piperacillin Sod/ Tazobactam Sod 3.375 gm/Dextrose 50 ml @ 100 mls/hr Q6HRS IV ; Start 07/12/17 at 16:00; Status Cancel Piperacillin Sod/ Tazobactam Sod (Zosyn) 3.375 gm Q6HRS IVP Last administered on 07/19/17 05:52; Start 07/12/17 at 16:00 Enoxaparin Sodium (Lovenox 40mg Syringe) 40 mg Q24H SQ Last administered on 18:04; Start 07/13/17 at 15:00 Insulin Detemir (Levemir) 22 units QHS SQ Last administered on 07/18/17 21:07 ; Start 07/14/17 at 21:00 Lactobacillus Rhamnosus (Culturelle) 1 cap BID PO Last administered on 08:11; Start 07/14/17 at 21:00 Sodium Chloride 500 ml @ 500 mls/hr 1X ONCE IV Last administered on 09:09; Start 07/15/17 at 09:00; Stop 07/15/17 at 09:59; Status DC Ceftriaxone Sodium 1 gm/ Dextrose 50 ml @ 100 mls/hr Q24H IV ; Start 07/16/17 at 12:45; Status UNV Ondansetron HCl (Zofran) 4 mg PRN Q6HRS PRN IV NAUSEA/VOMITING; Start at 12:45 Acetaminophen (Tylenol) 650 mg PRN Q6HRS PRN PO pain; Start 07/16/17 at 12:45 ; Status UNV Insulin Aspart (NovoLOG) 0-9 UNITS TIDWMEALS SQ Last administered on 08:23; Start 07/16/17 at 17:00 Dextrose (Dextrose 50%-Water Syringe) 12.5 gm PRN Q15MIN PRN IV SEE COMMENTS; Start 07/16/17 at 12:45 Oxycodone/ Acetaminophen (Percocet 5/325) 1 tab PRN Q4HRS PRN PO PAIN; Start 07/16/17 at 12:45 Ceftriaxone Sodium (Rocephin) 1 gm Q24H IVP Last administered on 07/16/17t 13: 52; Start 07/16/17 at 13:00; Stop 07/16/17 at 14:30; Status DC Piperacillin Sod/ Tazobactam Sod (Zosyn Per Pharmacy) 1 each PRN DAILY PRN MC SEE COMMENTS; Start 07/16/17 at 14:30; Stop 07/18/17 at 15:44; Status DC Ondansetron HCl (Zofran) 4 mg PRN Q6HRS PRN IV NAUSEA/VOMITING; Start at 07:45; Stop 07/19/17 at 07:44; Status DC Fentanyl Citrate (Fentanyl 2ml Vial) 25 mcg PRN Q5MIN PRN IV MILD PAIN; Start 07/18/17 at 07:45; Stop 07/19/17 at 07:44; Status DC Fentanyl Citrate (Fentanyl 2ml Vial) 50 mcg PRN Q5MIN PRN IV MODERATE PAIN; Start 07/18/17 at 07:45; Stop 07/19/17 at 07:44; Status DC Morphine Sulfate 1 mg PRN Q10MIN PRN IV SEVERE PAIN; Start 07/18/17 at 07:45; Stop 07/19/17 at 07:44; Status DC Ringer's Solution 1,000 ml @ 30 mls/hr Q24H IV ; Start 07/18/17 at 07:43; Stop 07/18/17 at 19:42; Status DC Lidocaine HCl (Xylocaine-Mpf 1% Vial) 2 ml 1X PRN PRN ID IV START; Start 07/18 at 07:45; Stop 07/19/17 at 07:44; Status DC Hydromorphone HCl (Dilaudid) 0.5 mg PRN Q10MIN PRN IV SEV PAIN, Second choice; Start 07/18/17 at 07:45; Stop 07/19/17 at 07:44; Status DC Prochlorperazine Edisylate (Compazine) 5 mg PACU PRN PRN IV NAUSEA, MRX1; Start 07/18/17 at 07:45; Stop 07/19/17 at 07:44; Status DC Sevoflurane (Ultane) 90 ml STK-MED ONCE IH ; Start 07/18/17 at 11:37; Stop at 12:47; Status DC Neostigmine Methylsulfate (Bloxiverz) 10 mg STK-MED ONCE .ROUTE ; Start at 11:37; Stop 07/18/17 at 12:47; Status DC Midazolam HCl (Versed) 2 mg STK-MED ONCE .ROUTE ; Start 07/18/17 at 11:38; Stop 07/18/17 at 12:47; Status DC Fentanyl Citrate (Fentanyl 2ml Vial) 100 mcg STK-MED ONCE .ROUTE ; Start at 11:38; Stop 07/18/17 at 12:47; Status DC Glycopyrrolate (Robinul) 1 mg STK-MED ONCE .ROUTE ; Start 07/18/17 at 11:38; Stop 07/18/17 at 12:47; Status DC Rocuronium [place] (Zemuron) 50 mg STK-MED ONCE .ROUTE ; Start 07/18/17 at 11: 38; Stop 07/18/17 at 12:47; Status DC Propofol 20 ml @ As Directed STK-MED ONCE IV ; Start 07/18/17 at 11:38; Stop 07/18/17 at 12:47; Status DC Lidocaine HCl (Lidocaine Pf 2% Vial) 5 ml STK-MED ONCE .ROUTE ; Start 07/18/17 at 11:38; Stop 07/18/17 at 12:47; Status DC Dexamethasone Sodium Phosphate (Decadron) 20 mg STK-MED ONCE .ROUTE ; Start at 11:38; Stop 07/18/17 at 12:47; Status DC Ondansetron HCl (Zofran) 4 mg STK-MED ONCE .ROUTE ; Start 07/18/17 at 11:38; Stop 07/18/17 at 12:48; Status DC Cefazolin Sodium 1 gm/Sodium Chloride 250 ml @ 250 mls/hr 1X PERIOP ONCE IRR ; Start 07/18/17 at 14:00; Stop 07/18/17 at 14:59; Status DC Vasopressin (Vasostrict) 20 unit STK-MED ONCE .ROUTE ; Start 07/18/17 at 14:27 ; Stop 07/18/17 at 14:28; Status DC Fentanyl Citrate (Fentanyl 2ml Vial) 100 mcg STK-MED ONCE .ROUTE ; Start at 14:42; Stop 07/18/17 at 14:43; Status DC Morphine Sulfate 2 mg PRN Q2HR PRN IV PAIN; Start 07/18/17 at 15:30 Sodium Chloride 1,000 ml @ 100 mls/hr Q10H PRN IV SEE COMMENTS; Start at 12:00 Multivitamins (Thera M Plus) 1 tab DAILY PO ; Start 07/19/17 at 10:00 Ascorbic Acid (Vitamin C) 500 mg DAILY PO ; Start 07/19/17 at 10:00 Active Scripts Active Flomax (Tamsulosin Hcl) 0.4 Mg Cap.er.24h 0.4 Mg PO QHS Reported Humalog (Insulin Lispro) 100 Unit/1 Ml Insuln.pen 7 Unit SQ TIDWMEALS Tylenol (Acetaminophen) 325 Mg Tablet 650 Mg PO PRN Q4HRS PRN Losartan Potassium 50 Mg Tablet 50 Mg PO QHS Lantus Solostar (Insulin Glargine,Hum.rec.anlog) 100 Unit/1 Ml Insuln.pen 19 Unit SQ QHS Colace (Docusate Sodium) 100 Mg Capsule 100 Mg PO DAILY Clopidogrel (Clopidogrel Bisulfate) 75 Mg Tablet 75 Mg PO DAILY Hydrocodone-Apap 5-325 (Hydrocodone Bit/Acetaminophen) 1 Each Tablet 1 Tab PO PRN Q6HRS PRN Vitals/I & O Vital Sign - Last 24 Hours 07/18/17 07/18/17 07/18/17 07/18/17 10:41 15:25 15:25 15:40 Temp 97.8 97.8 97.8 97.8 Pulse 73 66 66 Resp 20 16 18 B/P (MAP) 161/79 160/86 134/59 Pulse Ox 97 100 99 O2 Delivery Room Air Mask Simple Mask Simple Mask O2 Flow Rate 10 10 10 07/18/17 07/18/17 07/18/17 07/18/17 15:55 16:10 16:25 17:30 Temp 97.4 97.4 Pulse 64 64 68 66 Resp 16 18 20 B/P (MAP) 156/82 150/77 140/77 146/78 (100) Pulse Ox 98 99 99 99 O2 Delivery Room Air Room Air Room Air Room Air 07/18/17 07/18/17 07/18/17 07/18/17 17:45 18:00 18:15 18:30 Pulse 67 79 81 76 B/P (MAP) 143/81 (101) 158/85 (109) 168/89 (115) 167/91 (116) O2 Delivery Room Air Room Air Room Air Room Air 07/18/17 07/18/17 07/18/17 07/18/17 19:42 20:00 21:04 23:08 Temp 98.1 98.1 98.1 98.1 Pulse 87 87 99 Resp 18 18 B/P (MAP) 156/88 (110) 156/88 127/78 (94) Pulse Ox 100 99 O2 Delivery Room Air Room Air Room Air 07/19/17 07/19/17 07/19/17 03:21 07:35 08:00 Temp 98.2 99.0 98.2 99.0 Pulse 89 82 Resp 18 17 B/P (MAP) 132/78 (96) 133/78 (96) Pulse Ox 99 99 O2 Delivery Room Air Room Air Room Air Intake and Output 07/18/17 07/18/17 07/19/17 15:00 23:00 07:00 Intake Total 2000 ml 250 ml Output Total 665 ml 900 ml Balance 1335 ml -650 ml DOMENICA CHRISTIANSON MD Jul 19, 2017 09:36
[2017-07-19] MEDS ORDERED: HYDROcodone/APAP 7.5/325MG 1 TAB TABLET PO PRN (09:45)
[2017-07-19 11:12] VITALS: BP 142/78
[2017-07-19] MEDS: GABAPENTIN 300 MG CAPSULE. PO SCH ×3 (12:27→21:49)
[2017-07-19] MEDS: MULTIVITAMIN with MINERAL TABLET. PO SCH (12:27)
[2017-07-19] MEDS: ASCORBIC ACID 500 MG TABLET PO SCH (12:28)
[2017-07-19 14:47] VITALS: BP 136/72
[2017-07-19 19:54] VITALS: BP 154/78
[2017-07-19] MEDS: TAMSULOSIN 0.4 MG CAP.ER.24H. PO SCH (21:48)
[2017-07-19] MEDS: LOSARTAN POTASSIUM 50 MG TABLET. PO SCH (21:49)
[2017-07-19] MEDS: INSULIN DETEMIR 300 UNITS/3 ML INSULN.PEN. SQ SCH (21:57)
[2017-07-19 23:45] VITALS: BP 140/79
[2017-07-20] MEDS: PIPERACILLIN/TAZO IV Push 3.375 GM VIAL. IVP SCH ×4 (00:36→16:39)
[2017-07-20 07:00] VITALS: BP 138/70
[2017-07-20] MEDS: LACTOBACILLUS RHAMNOSUS GG 1 CAPSULE. PO SCH ×2 (08:07→21:19)
[2017-07-20] MEDS: DOCUSATE SODIUM 100 MG CAPSULE. PO SCH (08:07)
[2017-07-20] MEDS: MULTIVITAMIN with MINERAL TABLET. PO SCH (08:08)
[2017-07-20] MEDS: CLOPIDOGREL BISULFATE 75 MG TABLET PO SCH (08:08)
[2017-07-20] MEDS: ASCORBIC ACID 500 MG TABLET PO SCH (08:08)
[2017-07-20] MEDS: GABAPENTIN 300 MG CAPSULE. PO SCH ×3 (08:08→21:19)
[2017-07-20] MEDS: INSULIN ASPART 300 UNITS/3 ML INSULN.PEN SQ SCH ×6 (08:12→16:47)
[2017-07-20 09:47] LABS: HEMATOCRIT 23.2 % (39.0-53.0); HEMOGLOBIN 7.7 g/dL (13.0-17.5)
[2017-07-20] MEDS: ENOXAPARIN 40 MG/0.4 ML SYRINGE. SQ SCH (09:53)
[2017-07-20] MEDS: ACETAMINOPHEN 325 MG TABLET. PO PRN (10:15)
[2017-07-20 10:48] VITALS: BP 126/62
--- NOTE | 2017-07-20 11:19 | PDOC ---
Provider Note Provider Note He is without new complaints. Right leg incision intact. Drain removed. May start PT/OT. He will need f/u with Dr. Ureña in 3-4 weeks following d/c. AKHIL VALDEZ MD Jul 20, 2017 11:19
--- NOTE | 2017-07-20 13:52 | PDOC ---
PROGRESS NOTES Chief Complaint Chief Complaint LE cellulitis Diabetic foot ulcers, s/p bilat amputations 1. Cellulitis with diabetic ulcers R thigh/B stumps: s/p debridement 07/13. 2. DM2: HgbA1c 8.6. 3. PVD: s/p B BKA. 4. UTI: K.pneumoniae, pansensitive. 5. Anemia: of CKD 3 History of Present Illness History of Present Illness leg pain, phantom pain, tingling and burning pain - much better today start PT and OT DC planning to start Poor healing previously significant peripheral vascular disease. cont IV zosyn s/p AKA doing well on gabapentin for nerve pain Vitals Vitals Vital Signs Date Time Temp Pulse Resp B/P (MAP) Pulse Ox O2 Delivery O2 Flow Rate FiO2 07/20/17 10:48 100.8 90 18 126/62 (83) 97 Room Air 100.8 Physical Exam General: Alert, Oriented X3, Cooperative, No acute distress Heart: Regular rate, No murmurs Lungs: Clear Abdomen: Soft, No tenderness Extremities: Other (right aka stump dressing dry; minimal drainage per DEWAYNE) Skin: No rashes, Other (bilat ulcers dressed) Labs LABS Laboratory Tests Test 07/19/17 16:28 07/19/17 21:51 07/20/17 07:22 07/20/17 09:00 Glucose (Fingerstick) 373 mg/dL (70-99) 204 mg/dL (70-99) 180 mg/dL (70-99) Hemoglobin 7.7 g/dL (13.0-17.5) Hematocrit 23.2 % (39.0-53.0) Mean Corpuscular Hemoglobin Concent 33 g/dL (31-37) Test 07/20/17 11:45 Glucose (Fingerstick) 190 mg/dL (70-99) Assessment and Plan Assessmemt and Plan Problems Medical Problems: (1) Hyperglycemia Status: Acute Problems: Comment Review of Relevant I have reviewed the following items yobani (where applicable) has been applied. Labs Laboratory Tests Test 07/18/17 15:31 07/18/17 16:20 07/18/17 16:41 07/19/17 06:00 Glucose (Fingerstick) 112 mg/dL (70-99) 118 mg/dL (70-99) Hemoglobin 8.9 g/dL (13.0-17.5) 7.9 g/dL (13.0-17.5) Hematocrit 26.8 % (39.0-53.0) 23.3 % (39.0-53.0) Mean Corpuscular Hemoglobin Concent 33 g/dL (31-37) 34 g/dL (31-37) White Blood Count 12.0 x10^3/uL (4.0-11.0) Red Blood Count 2.68 x10^6/uL (4.30-5.70) Mean Corpuscular Volume 87 fL (79-100) Mean Corpuscular Hemoglobin 30 pg (25-35) Red Cell Distribution Width 15.5 % (11.5-14.5) Platelet Count 206 x10^3/uL (140-400) Neutrophils (%) (Auto) 68 % (31-73) Lymphocytes (%) (Auto) 24 % (24-48) Monocytes (%) (Auto) 7 % (0-9) Eosinophils (%) (Auto) 0 % (0-3) Basophils (%) (Auto) 0 % (0-3) Neutrophils # (Auto) 8.2 x10^3uL (1.8-7.7) Lymphocytes # (Auto) 2.9 x10^3/uL (1.0-4.8) Monocytes # (Auto) 0.9 x10^3/uL (0.0-1.1) Eosinophils # (Auto) 0.0 x10^3/uL (0.0-0.7) Basophils # (Auto) 0.0 x10^3/uL (0.0-0.2) Sodium Level 140 mmol/L (136-145) Potassium Level 4.0 mmol/L (3.5-5.1) Chloride Level 110 mmol/L (98-107) Carbon Dioxide Level 23 mmol/L (21-32) Anion Gap 7 (6-14) Blood Urea Nitrogen 32 mg/dL (8-26) Creatinine 1.5 mg/dL (0.7-1.3) Estimated GFR (Cockcroft-Gault) 58.4 Glucose Level 246 mg/dL (70-99) Calcium Level 8.1 mg/dL (8.5-10.1) Test 07/19/17 07:38 07/19/17 11:35 07/19/17 16:28 07/19/17 21:51 Glucose (Fingerstick) 241 mg/dL (70-99) 196 mg/dL (70-99) 373 mg/dL (70-99) 204 mg/dL (70-99) Test 07/20/17 07:22 07/20/17 09:00 07/20/17 11:45 Glucose (Fingerstick) 180 mg/dL (70-99) 190 mg/dL (70-99) Hemoglobin 7.7 g/dL (13.0-17.5) Hematocrit 23.2 % (39.0-53.0) Mean Corpuscular Hemoglobin Concent 33 g/dL (31-37) Laboratory Tests Test 07/19/17 16:28 07/19/17 21:51 07/20/17 07:22 07/20/17 09:00 Glucose (Fingerstick) 373 mg/dL (70-99) 204 mg/dL (70-99) 180 mg/dL (70-99) Hemoglobin 7.7 g/dL (13.0-17.5) Hematocrit 23.2 % (39.0-53.0) Mean Corpuscular Hemoglobin Concent 33 g/dL (31-37) Test 07/20/17 11:45 Glucose (Fingerstick) 190 mg/dL (70-99) Microbiology 07/15/17 Blood Culture - Final, Complete NO GROWTH AFTER 5 DAYS 07/11/17 Urine Culture - Final, Complete 07/11/17 Urine Culture Result 1 (CHCIO) - Final, Complete 07/11/17 Antimicrobic Susceptibility - Final, Complete 07/14/17 Gram Stain - Final, Complete Medications Current Medications Sodium Chloride 1,000 ml @ 1,000 mls/hr 1X ONCE IV Last administered on 07/11 18:11; Start 07/11/17 at 18:00; Stop 07/11/17 at 18:59; Status DC Insulin Human Regular (NovoLIN R VIAL) 10 unit 1X ONCE IV Last administered on 07/11/17 18:56; Start 07/11/17 at 19:00; Stop 07/11/17 at 19:01; Status DC Acetaminophen (Tylenol) 650 mg PRN Q4HRS PRN PO MILD PAIN Last administered on 07/20/17 10:15; Start 07/12/17 at 13:00 Clopidogrel Bisulfate (Plavix) 75 mg DAILY PO Last administered on 07/20/17 08:08; Start 07/12/17 at 14:00 Docusate Sodium (Colace) 100 mg DAILY PO Last administered on 07/20/17 08:07 ; Start 07/12/17 at 14:00 Acetaminophen/ Hydrocodone Bitart (Lortab 5/325) 1 tab PRN Q6HRS PRN PO MODERATE PAIN; Start 07/12/17 at 13:00 Losartan Potassium (Cozaar) 50 mg QHS PO Last administered on 07/19/17 21:49 ; Start 07/12/17 at 21:00 Tamsulosin HCl (Flomax) 0.4 mg QHS PO Last administered on 07/19/17 21:48; Start 07/12/17 at 21:00 Insulin Detemir (Levemir) 19 units QHS SQ Last administered on 07/13/17 21:22 ; Start 07/12/17 at 21:00; Stop 07/14/17 at 12:26; Status DC Insulin Aspart (NovoLOG) 7 units TIDAC SQ Last administered on 07/20/17 11:57 ; Start 07/12/17 at 16:30 Piperacillin Sod/ Tazobactam Sod 3.375 gm/Dextrose 50 ml @ 100 mls/hr Q6HRS IV ; Start 07/12/17 at 16:00; Status Cancel Piperacillin Sod/ Tazobactam Sod (Zosyn) 3.375 gm Q6HRS IVP Last administered on 07/20/17 11:51; Start 07/12/17 at 16:00 Enoxaparin Sodium (Lovenox 40mg Syringe) 40 mg Q24H SQ Last administered on 18:04; Start 07/13/17 at 15:00 Insulin Detemir (Levemir) 22 units QHS SQ Last administered on 07/19/17 21:57 ; Start 07/14/17 at 21:00 Lactobacillus Rhamnosus (Culturelle) 1 cap BID PO Last administered on 08:07; Start 07/14/17 at 21:00 Sodium Chloride 500 ml @ 500 mls/hr 1X ONCE IV Last administered on 09:09; Start 07/15/17 at 09:00; Stop 07/15/17 at 09:59; Status DC Ceftriaxone Sodium 1 gm/ Dextrose 50 ml @ 100 mls/hr Q24H IV ; Start 07/16/17 at 12:45; Status UNV Ondansetron HCl (Zofran) 4 mg PRN Q6HRS PRN IV NAUSEA/VOMITING; Start at 12:45 Acetaminophen (Tylenol) 650 mg PRN Q6HRS PRN PO pain; Start 07/16/17 at 12:45 ; Status UNV Insulin Aspart (NovoLOG) 0-9 UNITS TIDWMEALS SQ Last administered on 11:57; Start 07/16/17 at 17:00 Dextrose (Dextrose 50%-Water Syringe) 12.5 gm PRN Q15MIN PRN IV SEE COMMENTS; Start 07/16/17 at 12:45 Oxycodone/ Acetaminophen (Percocet 5/325) 1 tab PRN Q4HRS PRN PO PAIN; Start 07/16/17 at 12:45; Stop 07/19/17 at 09:35; Status DC Ceftriaxone Sodium (Rocephin) 1 gm Q24H IVP Last administered on 07/16/17 13: 52; Start 07/16/17 at 13:00; Stop 07/16/17 at 14:30; Status DC Piperacillin Sod/ Tazobactam Sod (Zosyn Per Pharmacy) 1 each PRN DAILY PRN MC SEE COMMENTS; Start 07/16/17 at 14:30; Stop 07/18/17 at 15:44; Status DC Ondansetron HCl (Zofran) 4 mg PRN Q6HRS PRN IV NAUSEA/VOMITING; Start at 07:45; Stop 07/19/17 at 07:44; Status DC Fentanyl Citrate (Fentanyl 2ml Vial) 25 mcg PRN Q5MIN PRN IV MILD PAIN; Start 07/18/17 at 07:45; Stop 07/19/17 at 07:44; Status DC Fentanyl Citrate (Fentanyl 2ml Vial) 50 mcg PRN Q5MIN PRN IV MODERATE PAIN; Start 07/18/17 at 07:45; Stop 07/19/17 at 07:44; Status DC Morphine Sulfate 1 mg PRN Q10MIN PRN IV SEVERE PAIN; Start 07/18/17 at 07:45; Stop 07/19/17 at 07:44; Status DC Ringer's Solution 1,000 ml @ 30 mls/hr Q24H IV ; Start 07/18/17 at 07:43; Stop 07/18/17 at 19:42; Status DC Lidocaine HCl (Xylocaine-Mpf 1% Vial) 2 ml 1X PRN PRN ID IV START; Start 07/18 at 07:45; Stop 07/19/17 at 07:44; Status DC Hydromorphone HCl (Dilaudid) 0.5 mg PRN Q10MIN PRN IV SEV PAIN, Second choice; Start 07/18/17 at 07:45; Stop 07/19/17 at 07:44; Status DC Prochlorperazine Edisylate (Compazine) 5 mg PACU PRN PRN IV NAUSEA, MRX1; Start 07/18/17 at 07:45; Stop 07/19/17 at 07:44; Status DC Sevoflurane (Ultane) 90 ml STK-MED ONCE IH ; Start 07/18/17 at 11:37; Stop at 12:47; Status DC Neostigmine Methylsulfate (Bloxiverz) 10 mg STK-MED ONCE .ROUTE ; Start at 11:37; Stop 07/18/17 at 12:47; Status DC Midazolam HCl (Versed) 2 mg STK-MED ONCE .ROUTE ; Start 07/18/17 at 11:38; Stop 07/18/17 at 12:47; Status DC Fentanyl Citrate (Fentanyl 2ml Vial) 100 mcg STK-MED ONCE .ROUTE ; Start at 11:38; Stop 07/18/17 at 12:47; Status DC Glycopyrrolate (Robinul) 1 mg STK-MED ONCE .ROUTE ; Start 07/18/17 at 11:38; Stop 07/18/17 at 12:47; Status DC Rocuronium [place] (Zemuron) 50 mg STK-MED ONCE .ROUTE ; Start 07/18/17 at 11: 38; Stop 07/18/17 at 12:47; Status DC Propofol 20 ml @ As Directed STK-MED ONCE IV ; Start 07/18/17 at 11:38; Stop 07/18/17 at 12:47; Status DC Lidocaine HCl (Lidocaine Pf 2% Vial) 5 ml STK-MED ONCE .ROUTE ; Start 07/18/17 at 11:38; Stop 07/18/17 at 12:47; Status DC Dexamethasone Sodium Phosphate (Decadron) 20 mg STK-MED ONCE .ROUTE ; Start at 11:38; Stop 07/18/17 at 12:47; Status DC Ondansetron HCl (Zofran) 4 mg STK-MED ONCE .ROUTE ; Start 07/18/17 at 11:38; Stop 07/18/17 at 12:48; Status DC Cefazolin Sodium 1 gm/Sodium Chloride 250 ml @ 250 mls/hr 1X PERIOP ONCE IRR ; Start 07/18/17 at 14:00; Stop 07/18/17 at 14:59; Status DC Vasopressin (Vasostrict) 20 unit STK-MED ONCE .ROUTE ; Start 07/18/17 at 14:27 ; Stop 07/18/17 at 14:28; Status DC Fentanyl Citrate (Fentanyl 2ml Vial) 100 mcg STK-MED ONCE .ROUTE ; Start at 14:42; Stop 07/18/17 at 14:43; Status DC Morphine Sulfate 2 mg PRN Q2HR PRN IV PAIN; Start 07/18/17 at 15:30 Sodium Chloride 1,000 ml @ 100 mls/hr Q10H PRN IV SEE COMMENTS; Start at 12:00 Multivitamins (Thera M Plus) 1 tab DAILY PO Last administered on 07/20/17 08: 08; Start 07/19/17 at 10:00 Ascorbic Acid (Vitamin C) 500 mg DAILY PO Last administered on 07/20/17 08:08 ; Start 07/19/17 at 10:00 Gabapentin (Neurontin) 300 mg TID PO Last administered on 07/20/17 12:01; Start 07/19/17 at 09:45 Acetaminophen/ Hydrocodone Bitart (Lortab 7.5/325) 1 tab PRN Q4HRS PRN PO PAIN ; Start 07/19/17 at 09:45 Active Scripts Active Flomax (Tamsulosin Hcl) 0.4 Mg Cap.er.24h 0.4 Mg PO QHS Reported Humalog (Insulin Lispro) 100 Unit/1 Ml Insuln.pen 7 Unit SQ TIDWMEALS Tylenol (Acetaminophen) 325 Mg Tablet 650 Mg PO PRN Q4HRS PRN Losartan Potassium 50 Mg Tablet 50 Mg PO QHS Lantus Solostar (Insulin Glargine,Hum.rec.anlog) 100 Unit/1 Ml Insuln.pen 19 Unit SQ QHS Colace (Docusate Sodium) 100 Mg Capsule 100 Mg PO DAILY Clopidogrel (Clopidogrel Bisulfate) 75 Mg Tablet 75 Mg PO DAILY Hydrocodone-Apap 5-325 (Hydrocodone Bit/Acetaminophen) 1 Each Tablet 1 Tab PO PRN Q6HRS PRN Vitals/I & O Vital Sign - Last 24 Hours 07/19/17 07/19/17 07/19/17 07/19/17 14:47 19:54 20:00 21:49 Temp 98.7 99.5 98.7 99.5 Pulse 80 97 97 Resp 16 20 B/P (MAP) 136/72 (93) 154/78 (103) 154/78 Pulse Ox 96 98 O2 Delivery Room Air Room Air Room Air 07/19/17 07/20/17 07/20/17 07/20/17 23:45 03:52 07:00 07:41 Temp 101.3 98.9 101.3 98.9 Pulse 97 85 Resp 20 20 B/P (MAP) 140/79 (99) 138/70 (92) Pulse Ox 98 96 O2 Delivery Room Air Room Air Room Air Room Air 07/20/17 10:48 Temp 100.8 100.8 Pulse 90 Resp 18 B/P (MAP) 126/62 (83) Pulse Ox 97 O2 Delivery Room Air Intake and Output 07/19/17 07/19/17 07/20/17 15:00 23:00 07:00 Intake Total 400 ml 240 ml 450 ml Output Total 1000 ml 1250 ml Balance 400 ml -760 ml -800 ml DOMENICA CHRISTIANSON MD Jul 20, 2017 13:52
[2017-07-20 14:55] VITALS: BP 116/61
[2017-07-20 19:35] VITALS: BP 128/64
[2017-07-20] MEDS: TAMSULOSIN 0.4 MG CAP.ER.24H. PO SCH (21:19)
[2017-07-20] MEDS: LOSARTAN POTASSIUM 50 MG TABLET. PO SCH (21:20)
[2017-07-20] MEDS: INSULIN DETEMIR 300 UNITS/3 ML INSULN.PEN. SQ SCH (21:24)
[2017-07-20 23:44] VITALS: BP 152/74
[2017-07-21] VITALS (10 sets, daily range): BP systolic 135–158; BP diastolic 71–80
[2017-07-21] MEDS: PIPERACILLIN/TAZO IV Push 3.375 GM VIAL. IVP SCH ×4 (00:25→18:18)
[2017-07-21 04:39] LABS: BASO % 1 % (0-3); EOS % 2 % (0-3); LYMPH # 2.8 x10^3/uL (1.0-4.8); LYMPH % 28 % (24-48); MEAN CORPUSCULAR HEMOGLOBIN 30 pg (25-35); MEAN CORPUSCULAR HGB CONC 33 g/dL (31-37); MEAN CORPUSCULAR VOLUME 90 fL (79-100); MONO % 8 % (0-9); NEUT % 62 % (31-73); PLATELET COUNT 171 x10^3/uL (140-400); RED BLOOD COUNT 2.27 x10^6/uL (4.30-5.70); RED CELL DISTRIBUTION WIDTH 15.6 % (11.5-14.5)
[2017-07-21 04:56] LABS: HEMATOCRIT 20.5 % (39.0-53.0); HEMOGLOBIN 6.8 g/dL (13.0-17.5)
[2017-07-21 05:02] LABS: ALBUMIN 1.1 g/dL (3.4-5.0); ALBUMIN/GLOBULIN RATIO 0.2 (1.0-1.7); CALCIUM 7.7 mg/dL (8.5-10.1); CREATININE 1.6 mg/dL (0.7-1.3); GFR 54.2; POTASSIUM 4.4 mmol/L (3.5-5.1); TOTAL BILIRUBIN 0.2 mg/dL (0.2-1.0); TOTAL PROTEIN 6.1 g/dL (6.4-8.2)
[2017-07-21] MEDS: MULTIVITAMIN with MINERAL TABLET. PO SCH (08:54)
[2017-07-21] MEDS: GABAPENTIN 300 MG CAPSULE. PO SCH ×3 (08:54→21:19)
[2017-07-21] MEDS: CLOPIDOGREL BISULFATE 75 MG TABLET PO SCH (08:54)
[2017-07-21] MEDS: LACTOBACILLUS RHAMNOSUS GG 1 CAPSULE. PO SCH ×2 (08:54→21:18)
[2017-07-21] MEDS: ASCORBIC ACID 500 MG TABLET PO SCH (08:54)
[2017-07-21] MEDS: DOCUSATE SODIUM 100 MG CAPSULE. PO SCH (09:00)
[2017-07-21] MEDS: INSULIN ASPART 300 UNITS/3 ML INSULN.PEN SQ SCH ×6 (09:01→18:41)
--- NOTE | 2017-07-21 09:26 | PDOC ---
Provider Note Provider Note Vascular S: Patient with c/o mild stump pain O: Alert VSS, temp 99.5 Right leg dressing removed, small amount active bleeding from incision, intact Left leg dressing removed, area on knee unchanged, ulcer on medial stump with some slough, no change in size, no purulent drainage hgb 6.8 Hct 20.5, transfusion in progress A/P: POD #2 Right AKA Start PT/OT Restrict using prosthesis left leg until ulcer heals Continue local wound care to areas on left leg per WC nurse Continue dry gauze dressing to right stump site F/U in [address] Ureña [phone] SAMI BOND APRN Jul 21, 2017 09:26
[2017-07-21] MEDS ORDERED: METOPROLOL TART IMMED RELEASE 25 MG TABLET. PO ONE (09:45)
--- NOTE | 2017-07-21 09:45 | PDOC ---
PROGRESS NOTES Chief Complaint Chief Complaint LE cellulitis Diabetic foot ulcers, s/p bilat amputations 1. Cellulitis with diabetic ulcers R thigh/B stumps: s/p debridement 07/13. 2. DM2: HgbA1c 8.6. 3. PVD: s/p B BKA. 4. UTI: K.pneumoniae, pansensitive. 5. Anemia: of CKD 3 6. weakness and deiliyt 7. htn, poor control History of Present Illness History of Present Illness anemia better leg pain, phantom pain, tingling and burning pain - much better today start PT and OT DC plan Poor healing previously significant peripheral vascular disease. cont IV zosyn s/p AKA doing well on gabapentin for nerve pain Vitals Vitals Vital Signs Date Time Temp Pulse Resp B/P (MAP) Pulse Ox O2 Delivery O2 Flow Rate FiO2 07/21/17 08:53 85 18 149/80 07/21/17 07:00 98.8 96 Room Air 98.8 Physical Exam General: Alert, Oriented X3, Cooperative, No acute distress Heart: Regular rate, No murmurs Lungs: Clear Abdomen: Soft, No tenderness Extremities: Other (right aka stump dressing dry; minimal drainage per DEWAYNE) Skin: No rashes, Other (bilat ulcers dressed) Labs LABS Laboratory Tests Test 07/20/17 11:45 07/20/17 16:38 07/20/17 21:21 07/21/17 04:00 Glucose (Fingerstick) 190 mg/dL (70-99) 197 mg/dL (70-99) 217 mg/dL (70-99) White Blood Count 10.0 x10^3/uL (4.0-11.0) Red Blood Count 2.27 x10^6/uL (4.30-5.70) Hemoglobin 6.8 g/dL (13.0-17.5) Hematocrit 20.5 % (39.0-53.0) Mean Corpuscular Volume 90 fL (79-100) Mean Corpuscular Hemoglobin 30 pg (25-35) Mean Corpuscular Hemoglobin Concent 33 g/dL (31-37) Red Cell Distribution Width 15.6 % (11.5-14.5) Platelet Count 171 x10^3/uL (140-400) Neutrophils (%) (Auto) 62 % (31-73) Lymphocytes (%) (Auto) 28 % (24-48) Monocytes (%) (Auto) 8 % (0-9) Eosinophils (%) (Auto) 2 % (0-3) Basophils (%) (Auto) 1 % (0-3) Neutrophils # (Auto) 6.2 x10^3uL (1.8-7.7) Lymphocytes # (Auto) 2.8 x10^3/uL (1.0-4.8) Monocytes # (Auto) 0.8 x10^3/uL (0.0-1.1) Eosinophils # (Auto) 0.1 x10^3/uL (0.0-0.7) Basophils # (Auto) 0.0 x10^3/uL (0.0-0.2) Sodium Level 140 mmol/L (136-145) Potassium Level 4.4 mmol/L (3.5-5.1) Chloride Level 110 mmol/L (98-107) Carbon Dioxide Level 23 mmol/L (21-32) Anion Gap 7 (6-14) Blood Urea Nitrogen 37 mg/dL (8-26) Creatinine 1.6 mg/dL (0.7-1.3) Estimated GFR (Cockcroft-Gault) 54.2 BUN/Creatinine Ratio 23 (6-20) Glucose Level 273 mg/dL (70-99) Calcium Level 7.7 mg/dL (8.5-10.1) Total Bilirubin 0.2 mg/dL (0.2-1.0) Aspartate Amino Transf (AST/SGOT) 26 U/L (15-37) Alanine Aminotransferase (ALT/SGPT) 15 U/L (16-63) Alkaline Phosphatase 122 U/L (46-116) Total Protein 6.1 g/dL (6.4-8.2) Albumin 1.1 g/dL (3.4-5.0) Albumin/Globulin Ratio 0.2 (1.0-1.7) Test 07/21/17 08:22 Glucose (Fingerstick) 225 mg/dL (70-99) Review of Systems Review of Systems no nv.d' Assessment and Plan Assessmemt and Plan Problems Medical Problems: (1) Hyperglycemia Status: Acute Problems: Comment Review of Relevant I have reviewed the following items yobani (where applicable) has been applied. Labs Laboratory Tests Test 07/19/17 11:35 07/19/17 16:28 07/19/17 21:51 07/20/17 07:22 Glucose (Fingerstick) 196 mg/dL (70-99) 373 mg/dL (70-99) 204 mg/dL (70-99) 180 mg/dL (70-99) Test 07/20/17 09:00 07/20/17 11:45 07/20/17 16:38 07/20/17 21:21 Hemoglobin 7.7 g/dL (13.0-17.5) Hematocrit 23.2 % (39.0-53.0) Mean Corpuscular Hemoglobin Concent 33 g/dL (31-37) Glucose (Fingerstick) 190 mg/dL (70-99) 197 mg/dL (70-99) 217 mg/dL (70-99) Test 07/21/17 04:00 07/21/17 08:22 White Blood Count 10.0 x10^3/uL (4.0-11.0) Red Blood Count 2.27 x10^6/uL (4.30-5.70) Hemoglobin 6.8 g/dL (13.0-17.5) Hematocrit 20.5 % (39.0-53.0) Mean Corpuscular Volume 90 fL (79-100) Mean Corpuscular Hemoglobin 30 pg (25-35) Mean Corpuscular Hemoglobin Concent 33 g/dL (31-37) Red Cell Distribution Width 15.6 % (11.5-14.5) Platelet Count 171 x10^3/uL (140-400) Neutrophils (%) (Auto) 62 % (31-73) Lymphocytes (%) (Auto) 28 % (24-48) Monocytes (%) (Auto) 8 % (0-9) Eosinophils (%) (Auto) 2 % (0-3) Basophils (%) (Auto) 1 % (0-3) Neutrophils # (Auto) 6.2 x10^3uL (1.8-7.7) Lymphocytes # (Auto) 2.8 x10^3/uL (1.0-4.8) Monocytes # (Auto) 0.8 x10^3/uL (0.0-1.1) Eosinophils # (Auto) 0.1 x10^3/uL (0.0-0.7) Basophils # (Auto) 0.0 x10^3/uL (0.0-0.2) Sodium Level 140 mmol/L (136-145) Potassium Level 4.4 mmol/L (3.5-5.1) Chloride Level 110 mmol/L (98-107) Carbon Dioxide Level 23 mmol/L (21-32) Anion Gap 7 (6-14) Blood Urea Nitrogen 37 mg/dL (8-26) Creatinine 1.6 mg/dL (0.7-1.3) Estimated GFR (Cockcroft-Gault) 54.2 BUN/Creatinine Ratio 23 (6-20) Glucose Level 273 mg/dL (70-99) Calcium Level 7.7 mg/dL (8.5-10.1) Total Bilirubin 0.2 mg/dL (0.2-1.0) Aspartate Amino Transf (AST/SGOT) 26 U/L (15-37) Alanine Aminotransferase (ALT/SGPT) 15 U/L (16-63) Alkaline Phosphatase 122 U/L (46-116) Total Protein 6.1 g/dL (6.4-8.2) Albumin 1.1 g/dL (3.4-5.0) Albumin/Globulin Ratio 0.2 (1.0-1.7) Glucose (Fingerstick) 225 mg/dL (70-99) Laboratory Tests Test 07/20/17 11:45 07/20/17 16:38 07/20/17 21:21 07/21/17 04:00 Glucose (Fingerstick) 190 mg/dL (70-99) 197 mg/dL (70-99) 217 mg/dL (70-99) White Blood Count 10.0 x10^3/uL (4.0-11.0) Red Blood Count 2.27 x10^6/uL (4.30-5.70) Hemoglobin 6.8 g/dL (13.0-17.5) Hematocrit 20.5 % (39.0-53.0) Mean Corpuscular Volume 90 fL (79-100) Mean Corpuscular Hemoglobin 30 pg (25-35) Mean Corpuscular Hemoglobin Concent 33 g/dL (31-37) Red Cell Distribution Width 15.6 % (11.5-14.5) Platelet Count 171 x10^3/uL (140-400) Neutrophils (%) (Auto) 62 % (31-73) Lymphocytes (%) (Auto) 28 % (24-48) Monocytes (%) (Auto) 8 % (0-9) Eosinophils (%) (Auto) 2 % (0-3) Basophils (%) (Auto) 1 % (0-3) Neutrophils # (Auto) 6.2 x10^3uL (1.8-7.7) Lymphocytes # (Auto) 2.8 x10^3/uL (1.0-4.8) Monocytes # (Auto) 0.8 x10^3/uL (0.0-1.1) Eosinophils # (Auto) 0.1 x10^3/uL (0.0-0.7) Basophils # (Auto) 0.0 x10^3/uL (0.0-0.2) Sodium Level 140 mmol/L (136-145) Potassium Level 4.4 mmol/L (3.5-5.1) Chloride Level 110 mmol/L (98-107) Carbon Dioxide Level 23 mmol/L (21-32) Anion Gap 7 (6-14) Blood Urea Nitrogen 37 mg/dL (8-26) Creatinine 1.6 mg/dL (0.7-1.3) Estimated GFR (Cockcroft-Gault) 54.2 BUN/Creatinine Ratio 23 (6-20) Glucose Level 273 mg/dL (70-99) Calcium Level 7.7 mg/dL (8.5-10.1) Total Bilirubin 0.2 mg/dL (0.2-1.0) Aspartate Amino Transf (AST/SGOT) 26 U/L (15-37) Alanine Aminotransferase (ALT/SGPT) 15 U/L (16-63) Alkaline Phosphatase 122 U/L (46-116) Total Protein 6.1 g/dL (6.4-8.2) Albumin 1.1 g/dL (3.4-5.0) Albumin/Globulin Ratio 0.2 (1.0-1.7) Test 07/21/17 08:22 Glucose (Fingerstick) 225 mg/dL (70-99) Microbiology 07/15/17 Blood Culture - Final, Complete NO GROWTH AFTER 5 DAYS 07/11/17 Urine Culture - Final, Complete 07/11/17 Urine Culture Result 1 (CHICO) - Final, Complete 07/11/17 Antimicrobic Susceptibility - Final, Complete 07/14/17 Gram Stain - Final, Complete Medications Current Medications Sodium Chloride 1,000 ml @ 1,000 mls/hr 1X ONCE IV Last administered on 07/11 18:11; Start 07/11/17 at 18:00; Stop 07/11/17 at 18:59; Status DC Insulin Human Regular (NovoLIN R VIAL) 10 unit 1X ONCE IV Last administered on 07/11/17 18:56; Start 07/11/17 at 19:00; Stop 07/11/17 at 19:01; Status DC Acetaminophen (Tylenol) 650 mg PRN Q4HRS PRN PO MILD PAIN Last administered on 07/20/17 10:15; Start 07/12/17 at 13:00 Clopidogrel Bisulfate (Plavix) 75 mg DAILY PO Last administered on 07/21/17 08:54; Start 07/12/17 at 14:00 Docusate Sodium (Colace) 100 mg DAILY PO Last administered on 07/20/17 08:07 ; Start 07/12/17 at 14:00 Acetaminophen/ Hydrocodone Bitart (Lortab 5/325) 1 tab PRN Q6HRS PRN PO MODERATE PAIN; Start 07/12/17 at 13:00 Losartan Potassium (Cozaar) 50 mg QHS PO Last administered on 07/20/17 21:20 ; Start 07/12/17 at 21:00 Tamsulosin HCl (Flomax) 0.4 mg QHS PO Last administered on 07/20/17 21:19; Start 07/12/17 at 21:00 Insulin Detemir (Levemir) 19 units QHS SQ Last administered on 07/13/17 21:22 ; Start 07/12/17 at 21:00; Stop 07/14/17 at 12:26; Status DC Insulin Aspart (NovoLOG) 7 units TIDAC SQ Last administered on 07/21/17 09:02 ; Start 07/12/17 at 16:30 Piperacillin Sod/ Tazobactam Sod 3.375 gm/Dextrose 50 ml @ 100 mls/hr Q6HRS IV ; Start 07/12/17 at 16:00; Status Cancel Piperacillin Sod/ Tazobactam Sod (Zosyn) 3.375 gm Q6HRS IVP Last administered on 07/21/17 05:41; Start 07/12/17 at 16:00 Enoxaparin Sodium (Lovenox 40mg Syringe) 40 mg Q24H SQ Last administered on 18:04; Start 07/13/17 at 15:00 Insulin Detemir (Levemir) 22 units QHS SQ Last administered on 07/20/17 21:24 ; Start 07/14/17 at 21:00 Lactobacillus Rhamnosus (Culturelle) 1 cap BID PO Last administered on 08:54; Start 07/14/17 at 21:00 Sodium Chloride 500 ml @ 500 mls/hr 1X ONCE IV Last administered on 09:09; Start 07/15/17 at 09:00; Stop 07/15/17 at 09:59; Status DC Ceftriaxone Sodium 1 gm/ Dextrose 50 ml @ 100 mls/hr Q24H IV ; Start 07/16/17 at 12:45; Status UNV Ondansetron HCl (Zofran) 4 mg PRN Q6HRS PRN IV NAUSEA/VOMITING; Start at 12:45 Acetaminophen (Tylenol) 650 mg PRN Q6HRS PRN PO pain; Start 07/16/17 at 12:45 ; Status UNV Insulin Aspart (NovoLOG) 0-9 UNITS TIDWMEALS SQ Last administered on 09:01; Start 07/16/17 at 17:00 Dextrose (Dextrose 50%-Water Syringe) 12.5 gm PRN Q15MIN PRN IV SEE COMMENTS; Start 07/16/17 at 12:45 Oxycodone/ Acetaminophen (Percocet 5/325) 1 tab PRN Q4HRS PRN PO PAIN; Start 07/16/17 at 12:45; Stop 07/19/17 at 09:35; Status DC Ceftriaxone Sodium (Rocephin) 1 gm Q24H IVP Last administered on 07/16/17 13: 52; Start 07/16/17 at 13:00; Stop 07/16/17 at 14:30; Status DC Piperacillin Sod/ Tazobactam Sod (Zosyn Per Pharmacy) 1 each PRN DAILY PRN MC SEE COMMENTS; Start 07/16/17 at 14:30; Stop 07/18/17 at 15:44; Status DC Ondansetron HCl (Zofran) 4 mg PRN Q6HRS PRN IV NAUSEA/VOMITING; Start at 07:45; Stop 07/19/17 at 07:44; Status DC Fentanyl Citrate (Fentanyl 2ml Vial) 25 mcg PRN Q5MIN PRN IV MILD PAIN; Start 07/18/17 at 07:45; Stop 07/19/17 at 07:44; Status DC Fentanyl Citrate (Fentanyl 2ml Vial) 50 mcg PRN Q5MIN PRN IV MODERATE PAIN; Start 07/18/17 at 07:45; Stop 07/19/17 at 07:44; Status DC Morphine Sulfate 1 mg PRN Q10MIN PRN IV SEVERE PAIN; Start 07/18/17 at 07:45; Stop 07/19/17 at 07:44; Status DC Ringer's Solution 1,000 ml @ 30 mls/hr Q24H IV ; Start 07/18/17 at 07:43; Stop 07/18/17 at 19:42; Status DC Lidocaine HCl (Xylocaine-Mpf 1% Vial) 2 ml 1X PRN PRN ID IV START; Start 07/18 at 07:45; Stop 07/19/17 at 07:44; Status DC Hydromorphone HCl (Dilaudid) 0.5 mg PRN Q10MIN PRN IV SEV PAIN, Second choice; Start 07/18/17 at 07:45; Stop 07/19/17 at 07:44; Status DC Prochlorperazine Edisylate (Compazine) 5 mg PACU PRN PRN IV NAUSEA, MRX1; Start 07/18/17 at 07:45; Stop 07/19/17 at 07:44; Status DC Sevoflurane (Ultane) 90 ml STK-MED ONCE IH ; Start 07/18/17 at 11:37; Stop at 12:47; Status DC Neostigmine Methylsulfate (Bloxiverz) 10 mg STK-MED ONCE .ROUTE ; Start at 11:37; Stop 07/18/17 at 12:47; Status DC Midazolam HCl (Versed) 2 mg STK-MED ONCE .ROUTE ; Start 07/18/17 at 11:38; Stop 07/18/17 at 12:47; Status DC Fentanyl Citrate (Fentanyl 2ml Vial) 100 mcg STK-MED ONCE .ROUTE ; Start at 11:38; Stop 07/18/17 at 12:47; Status DC Glycopyrrolate (Robinul) 1 mg STK-MED ONCE .ROUTE ; Start 07/18/17 at 11:38; Stop 07/18/17 at 12:47; Status DC Rocuronium Bridger (Zemuron) 50 mg STK-MED ONCE .ROUTE ; Start 07/18/17 at 11: 38; Stop 07/18/17 at 12:47; Status DC Propofol 20 ml @ As Directed STK-MED ONCE IV ; Start 07/18/17 at 11:38; Stop 07/18/17 at 12:47; Status DC Lidocaine HCl (Lidocaine Pf 2% Vial) 5 ml STK-MED ONCE .ROUTE ; Start 07/18/17 at 11:38; Stop 07/18/17 at 12:47; Status DC Dexamethasone Sodium Phosphate (Decadron) 20 mg STK-MED ONCE .ROUTE ; Start at 11:38; Stop 07/18/17 at 12:47; Status DC Ondansetron HCl (Zofran) 4 mg STK-MED ONCE .ROUTE ; Start 07/18/17 at 11:38; Stop 07/18/17 at 12:48; Status DC Cefazolin Sodium 1 gm/Sodium Chloride 250 ml @ 250 mls/hr 1X PERIOP ONCE IRR ; Start 07/18/17 at 14:00; Stop 07/18/17 at 14:59; Status DC Vasopressin (Vasostrict) 20 unit STK-MED ONCE .ROUTE ; Start 07/18/17 at 14:27 ; Stop 07/18/17 at 14:28; Status DC Fentanyl Citrate (Fentanyl 2ml Vial) 100 mcg STK-MED ONCE .ROUTE ; Start at 14:42; Stop 07/18/17 at 14:43; Status DC Morphine Sulfate 2 mg PRN Q2HR PRN IV PAIN; Start 07/18/17 at 15:30 Sodium Chloride 1,000 ml @ 100 mls/hr Q10H PRN IV SEE COMMENTS; Start at 12:00 Multivitamins (Thera M Plus) 1 tab DAILY PO Last administered on 07/21/17 08: 54; Start 07/19/17 at 10:00 Ascorbic Acid (Vitamin C) 500 mg DAILY PO Last administered on 07/21/17 08:54 ; Start 07/19/17 at 10:00 Gabapentin (Neurontin) 300 mg TID PO Last administered on 07/21/17 08:54; Start 07/19/17 at 09:45 Acetaminophen/ Hydrocodone Bitart (Lortab 7.5/325) 1 tab PRN Q4HRS PRN PO PAIN ; Start 07/19/17 at 09:45 Active Scripts Active Flomax (Tamsulosin Hcl) 0.4 Mg Cap.er.24h 0.4 Mg PO QHS Reported Humalog (Insulin Lispro) 100 Unit/1 Ml Insuln.pen 7 Unit SQ TIDWMEALS Tylenol (Acetaminophen) 325 Mg Tablet 650 Mg PO PRN Q4HRS PRN Losartan Potassium 50 Mg Tablet 50 Mg PO QHS Lantus Solostar (Insulin Glargine,Hum.rec.anlog) 100 Unit/1 Ml Insuln.pen 19 Unit SQ QHS Colace (Docusate Sodium) 100 Mg Capsule 100 Mg PO DAILY Clopidogrel (Clopidogrel Bisulfate) 75 Mg Tablet 75 Mg PO DAILY Hydrocodone-Apap 5-325 (Hydrocodone Bit/Acetaminophen) 1 Each Tablet 1 Tab PO PRN Q6HRS PRN Vitals/I & O Vital Sign - Last 24 Hours 07/20/17 07/20/17 07/20/17 07/20/17 10:48 14:55 19:35 20:00 Temp 100.8 99.7 98.2 100.8 99.7 98.2 Pulse 90 81 83 Resp 18 18 18 B/P (MAP) 126/62 (83) 116/61 (79) 128/64 (85) Pulse Ox 97 97 99 O2 Delivery Room Air Room Air Room Air Room Air 07/20/17 07/20/17 07/21/17 07/21/17 21:20 23:44 03:00 06:24 Temp 99.1 98.3 99.3 99.1 98.3 99.3 Pulse 83 87 83 89 Resp 18 18 16 B/P (MAP) 128/64 152/74 (100) 141/75 (97) 141/74 Pulse Ox 98 98 O2 Delivery Room Air 07/21/17 07/21/17 07/21/17 07/21/17 06:42 07:00 07:48 08:53 Temp 99.5 98.8 99.5 98.8 Pulse 88 81 81 85 Resp 18 18 18 18 B/P (MAP) 144/72 151/71 (97) 151/71 149/80 Pulse Ox 96 O2 Delivery Room Air Intake and Output 07/20/17 07/20/17 07/21/17 15:00 23:00 07:00 Intake Total 720 ml 780 ml Output Total 650 ml 1000 ml Balance 70 ml -220 ml DOMENICA CHRISTIANSON MD Jul 21, 2017 09:45
--- NOTE | 2017-07-21 09:48 | PATHOLOGY ---
PATHOLOGY REPORT * * * * * * * * FINAL DIAGNOSIS: Right leg above knee amputation: - Status-post below knee amputation, with ulceration and acute cellulitis of distal below knee stump. - Calcific atherosclerosis of popliteal artery. - Skin, subcutaneous tissue, and skeletal muscle tissue of proximal amputation margin viable. (JPM:; 07/20/2017) REPORT ELECTRONICALLY SIGNED BY: Kenton Cao M.D. DATE/TIME: 07/21/2017 09:46 * * * * * * * * GROSS PATHOLOGY: Received fresh in a biohazard bag labeled "Karel Romero, right amputation above knee" and consists of an amputation above the knee consistent with a stump that measures 26 cm in length with diameter ranging from 12.0 cm-18 cm. There is 5 cm of femur extending above the soft tissue margin. The distal stump shows a nonhealing wound that measures 7.5 by 5.0 cm. The bed of the wound is perrin, yellow, pink, and red. The remaining skin is brown with no other lesions identified. The popliteal artery shows marked atherosclerosis. Beet End Supervisor sections are submitted A1-A4. A1 gangrenous lesion distal stump A2 margin A3 popliteal artery A4 marrow of femur INITIAL CPT CODE(S): A; 25831 Professional services performed [place] [email or web address] [place] [address] Technical services performed by [facility] at [address] [place] [address], [facility] [address] [address]. SPECIMEN(S) RECEIVED: A.Right below knee stump CLINICAL HISTORY: Anemia, hyperglycemia PATIENT: KAREL ROMERO /AGE: 3 1960 (Age: 56) PATIENT #: [id number] ALT CASE #: SPECIMEN COLLECTION DATE: 07/18/2017 SPECIMEN RECEIVED DATE: 07/18/2017 [facility] - [id number] [address] - PHONE: [phone] * * * END OF REPORT * * *
[2017-07-21] MEDS: ENOXAPARIN 40 MG/0.4 ML SYRINGE. SQ SCH (15:00)
[2017-07-21] MEDS: METOPROLOL TART IMMED RELEASE 25 MG TABLET. PO SCH (21:19)
[2017-07-21] MEDS: LOSARTAN POTASSIUM 50 MG TABLET. PO SCH (21:19)
[2017-07-21] MEDS: TAMSULOSIN 0.4 MG CAP.ER.24H. PO SCH (21:19)
[2017-07-21] MEDS: INSULIN DETEMIR 300 UNITS/3 ML INSULN.PEN. SQ SCH (21:30)
[2017-07-22] MEDS: PIPERACILLIN/TAZO IV Push 3.375 GM VIAL. IVP SCH ×5 (01:25→23:13)
[2017-07-22 03:31] VITALS: BP 149/85
[2017-07-22 07:15] VITALS: BP 141/72
[2017-07-22] MEDS: CLOPIDOGREL BISULFATE 75 MG TABLET PO SCH (08:26)
[2017-07-22] MEDS: ASCORBIC ACID 500 MG TABLET PO SCH (08:26)
[2017-07-22] MEDS: LACTOBACILLUS RHAMNOSUS GG 1 CAPSULE. PO SCH ×2 (08:26→20:29)
[2017-07-22] MEDS: GABAPENTIN 300 MG CAPSULE. PO SCH ×3 (08:26→20:29)
[2017-07-22] MEDS: MULTIVITAMIN with MINERAL TABLET. PO SCH (08:26)
[2017-07-22] MEDS: DOCUSATE SODIUM 100 MG CAPSULE. PO SCH (08:27)
[2017-07-22] MEDS: METOPROLOL TART IMMED RELEASE 25 MG TABLET. PO SCH ×2 (08:27→20:30)
[2017-07-22] MEDS: INSULIN ASPART 300 UNITS/3 ML INSULN.PEN SQ SCH ×6 (08:33→17:56)
--- NOTE | 2017-07-22 09:03 | PDOC ---
Provider Note Provider Note Vascular Patient seen and examined by Dr. Scherer S: Patient with c/o continued stump pain, improving O: Alert VSS Right leg dressing dry and intact Left leg dressing dry and intact H/H pending post transfusion yesterday A/P: POD #3 Right AKA PT/OT Restrict using prosthesis left leg until ulcer heals Continue local wound care to areas on left leg per nurse Continue dry gauze dressing to right stump site F/U in [address] Ureña [phone] SAMI BOND APRN Jul 22, 2017 09:03
[2017-07-22 10:39] LABS: ALBUMIN 1.1 g/dL (3.4-5.0); ALBUMIN/GLOBULIN RATIO 0.2 (1.0-1.7); CALCIUM 7.9 mg/dL (8.5-10.1); CREATININE 1.8 mg/dL (0.7-1.3); GFR 47.3; POTASSIUM 3.8 mmol/L (3.5-5.1); TOTAL BILIRUBIN 0.2 mg/dL (0.2-1.0); TOTAL PROTEIN 7.1 g/dL (6.4-8.2)
[2017-07-22 10:46] LABS: BASO % 0 % (0-3); EOS % 2 % (0-3); HEMATOCRIT 24.6 % (39.0-53.0); HEMOGLOBIN 8.1 g/dL (13.0-17.5); LYMPH # 2.3 x10^3/uL (1.0-4.8); LYMPH % 21 % (24-48); MEAN CORPUSCULAR HEMOGLOBIN 29 pg (25-35); MEAN CORPUSCULAR HGB CONC 33 g/dL (31-37); MEAN CORPUSCULAR VOLUME 88 fL (79-100); MONO % 6 % (0-9); NEUT % 71 % (31-73); PLATELET COUNT 188 x10^3/uL (140-400); RED BLOOD COUNT 2.81 x10^6/uL (4.30-5.70); WHITE BLOOD COUNT 11.1 x10^3/uL (4.0-11.0)
[2017-07-22 11:28] VITALS: BP 119/61
[2017-07-22 14:37] VITALS: BP 136/70
--- NOTE | 2017-07-22 14:41 | RAD ---
Left upper extremity venous ultrasound, 07/22/2017: History: Left arm swelling Duplex evaluation of the major veins of the left upper extremity was performed including grayscale, color-flow and spectral Doppler analysis. The left internal jugular, subclavian, axillary and paired brachial veins are patent. Patent basilic, cephalic, radial and ulnar veins are evident. There is subcutaneous edema in the left upper extremity. IMPRESSION: No sonographic evidence of deep vein thrombosis in the left upper extremity.
--- NOTE | 2017-07-22 17:10 | RAD ---
CT head Indication:NEW left arm weakness Technique: CT head without IV contrast Comparison: Study from 05/25/2017 Findings: No pathologic extra-axial or intra-axial fluid collection. Mild diffuse cerebral atrophy with ex vacuo dilation of the ventricles. The basal cisterns are within normal limits. No acute intracranial bleed. Confluent low attenuation of the periventricular and deep white matter noted. No focal loss of perrin-white differentiation. Orbits are within normal limits. No calvarial lesions. Visualized paranasal sinuses and mastoid air cells are clear. Bilateral cavernous carotid artery atherosclerotic disease. Impression: 1. No acute intracranial bleed. No CT evidence of large territorial infarct. If concern for acute ischemic stroke is high, please consider MRI brain. 2. White matter changes likely secondary to chronic ischemic small vessel disease. PQRS Compliance Statement: One or more of the following individualized dose reduction techniques were utilized for this examination: 1. Automated exposure control 2. Adjustment of the mA and/or kV according to patient size 3. Use of iterative reconstruction technique
[2017-07-22] MEDS: ENOXAPARIN 40 MG/0.4 ML SYRINGE. SQ SCH (17:53)
[2017-07-22 19:00] VITALS: BP 140/78
[2017-07-22] MEDS: LOSARTAN POTASSIUM 50 MG TABLET. PO SCH (20:29)
[2017-07-22] MEDS: TAMSULOSIN 0.4 MG CAP.ER.24H. PO SCH (20:29)
[2017-07-22] MEDS: INSULIN DETEMIR 300 UNITS/3 ML INSULN.PEN. SQ SCH (20:37)
--- NOTE | 2017-07-22 23:00 | PDOC2 ---
NEUROLOGY CONSULT Date of Admission Date of Admission Full Report Dictated DATE: 07/22/17 TIME: 22:58 Current Medications Current Medications Current Medications Sodium Chloride 1,000 ml @ 1,000 mls/hr 1X ONCE IV Last administered on 07/11 18:11; Start 07/11/17 at 18:00; Stop 07/11/17 at 18:59; Status DC Insulin Human Regular (NovoLIN R VIAL) 10 unit 1X ONCE IV Last administered on 07/11/17 18:56; Start 07/11/17 at 19:00; Stop 07/11/17 at 19:01; Status DC Acetaminophen (Tylenol) 650 mg PRN Q4HRS PRN PO MILD PAIN Last administered on 07/20/17 10:15; Start 07/12/17 at 13:00 Clopidogrel Bisulfate (Plavix) 75 mg DAILY PO Last administered on 07/22/17 08 :26; Start 07/12/17 at 14:00 Docusate Sodium (Colace) 100 mg DAILY PO Last administered on 07/20/17 08:07 ; Start 07/12/17 at 14:00 Acetaminophen/ Hydrocodone Bitart (Lortab 5/325) 1 tab PRN Q6HRS PRN PO MODERATE PAIN; Start 07/12/17 at 13:00 Losartan Potassium (Cozaar) 50 mg QHS PO Last administered on 07/22/17 20:29; Start 07/12/17 at 21:00 Tamsulosin HCl (Flomax) 0.4 mg QHS PO Last administered on 07/22/17 20:29; Start 07/12/17 at 21:00 Insulin Detemir (Levemir) 19 units QHS SQ Last administered on 07/13/17 21:22 ; Start 07/12/17 at 21:00; Stop 07/14/17 at 12:26; Status DC Insulin Aspart (NovoLOG) 7 units TIDAC SQ Last administered on 07/22/17 17:56 ; Start 07/12/17 at 16:30 Piperacillin Sod/ Tazobactam Sod 3.375 gm/Dextrose 50 ml @ 100 mls/hr Q6HRS IV ; Start 07/12/17 at 16:00; Status Cancel Piperacillin Sod/ Tazobactam Sod (Zosyn) 3.375 gm Q6HRS IVP Last administered on 07/22/17 17:54; Start 07/12/17 at 16:00 Enoxaparin Sodium (Lovenox 40mg Syringe) 40 mg Q24H SQ Last administered on 17:53; Start 07/13/17 at 15:00 Insulin Detemir (Levemir) 22 units QHS SQ Last administered on 07/22/17 20:37 ; Start 07/14/17 at 21:00 Lactobacillus Rhamnosus (Culturelle) 1 cap BID PO Last administered on 20:29; Start 07/14/17 at 21:00 Sodium Chloride 500 ml @ 500 mls/hr 1X ONCE IV Last administered on 09:09; Start 07/15/17 at 09:00; Stop 07/15/17 at 09:59; Status DC Ceftriaxone Sodium 1 gm/ Dextrose 50 ml @ 100 mls/hr Q24H IV ; Start 07/16/17 at 12:45; Status UNV Ondansetron HCl (Zofran) 4 mg PRN Q6HRS PRN IV NAUSEA/VOMITING; Start at 12:45 Acetaminophen (Tylenol) 650 mg PRN Q6HRS PRN PO pain; Start 07/16/17 at 12:45 ; Status UNV Insulin Aspart (NovoLOG) 0-9 UNITS TIDWMEALS SQ Last administered on 07/22/17 17:56; Start 07/16/17 at 17:00 Dextrose (Dextrose 50%-Water Syringe) 12.5 gm PRN Q15MIN PRN IV SEE COMMENTS; Start 07/16/17 at 12:45 Oxycodone/ Acetaminophen (Percocet 5/325) 1 tab PRN Q4HRS PRN PO PAIN; Start 07/16/17 at 12:45; Stop 07/19/17 at 09:35; Status DC Ceftriaxone Sodium (Rocephin) 1 gm Q24H IVP Last administered on 07/16/17 13: 52; Start 07/16/17 at 13:00; Stop 07/16/17 at 14:30; Status DC Piperacillin Sod/ Tazobactam Sod (Zosyn Per Pharmacy) 1 each PRN DAILY PRN MC SEE COMMENTS; Start 07/16/17 at 14:30; Stop 07/18/17 at 15:44; Status DC Ondansetron HCl (Zofran) 4 mg PRN Q6HRS PRN IV NAUSEA/VOMITING; Start at 07:45; Stop 07/19/17 at 07:44; Status DC Fentanyl Citrate (Fentanyl 2ml Vial) 25 mcg PRN Q5MIN PRN IV MILD PAIN; Start 07/18/17 at 07:45; Stop 07/19/17 at 07:44; Status DC Fentanyl Citrate (Fentanyl 2ml Vial) 50 mcg PRN Q5MIN PRN IV MODERATE PAIN; Start 07/18/17 at 07:45; Stop 07/19/17 at 07:44; Status DC Morphine Sulfate 1 mg PRN Q10MIN PRN IV SEVERE PAIN; Start 07/18/17 at 07:45; Stop 07/19/17 at 07:44; Status DC Ringer's Solution 1,000 ml @ 30 mls/hr Q24H IV ; Start 07/18/17 at 07:43; Stop 07/18/17 at 19:42; Status DC Lidocaine HCl (Xylocaine-Mpf 1% Vial) 2 ml 1X PRN PRN ID IV START; Start 07/18 at 07:45; Stop 07/19/17 at 07:44; Status DC Hydromorphone HCl (Dilaudid) 0.5 mg PRN Q10MIN PRN IV SEV PAIN, Second choice; Start 07/18/17 at 07:45; Stop 07/19/17 at 07:44; Status DC Prochlorperazine Edisylate (Compazine) 5 mg PACU PRN PRN IV NAUSEA, MRX1; Start 07/18/17 at 07:45; Stop 07/19/17 at 07:44; Status DC Sevoflurane (Ultane) 90 ml STK-MED ONCE IH ; Start 07/18/17 at 11:37; Stop at 12:47; Status DC Neostigmine Methylsulfate (Bloxiverz) 10 mg STK-MED ONCE .ROUTE ; Start at 11:37; Stop 07/18/17 at 12:47; Status DC Midazolam HCl (Versed) 2 mg STK-MED ONCE .ROUTE ; Start 07/18/17 at 11:38; Stop 07/18/17 at 12:47; Status DC Fentanyl Citrate (Fentanyl 2ml Vial) 100 mcg STK-MED ONCE .ROUTE ; Start at 11:38; Stop 07/18/17 at 12:47; Status DC Glycopyrrolate (Robinul) 1 mg STK-MED ONCE .ROUTE ; Start 07/18/17 at 11:38; Stop 07/18/17 at 12:47; Status DC Rocuronium [place] (Zemuron) 50 mg STK-MED ONCE .ROUTE ; Start 07/18/17 at 11: 38; Stop 07/18/17 at 12:47; Status DC Propofol 20 ml @ As Directed STK-MED ONCE IV ; Start 07/18/17 at 11:38; Stop 07/18/17 at 12:47; Status DC Lidocaine HCl (Lidocaine Pf 2% Vial) 5 ml STK-MED ONCE .ROUTE ; Start 07/18/17 at 11:38; Stop 07/18/17 at 12:47; Status DC Dexamethasone Sodium Phosphate (Decadron) 20 mg STK-MED ONCE .ROUTE ; Start at 11:38; Stop 07/18/17 at 12:47; Status DC Ondansetron HCl (Zofran) 4 mg STK-MED ONCE .ROUTE ; Start 07/18/17 at 11:38; Stop 07/18/17 at 12:48; Status DC Cefazolin Sodium 1 gm/Sodium Chloride 250 ml @ 250 mls/hr 1X PERIOP ONCE IRR ; Start 07/18/17 at 14:00; Stop 07/18/17 at 14:59; Status DC Vasopressin (Vasostrict) 20 unit STK-MED ONCE .ROUTE ; Start 07/18/17 at 14:27 ; Stop 07/18/17 at 14:28; Status DC Fentanyl Citrate (Fentanyl 2ml Vial) 100 mcg STK-MED ONCE .ROUTE ; Start at 14:42; Stop 07/18/17 at 14:43; Status DC Morphine Sulfate 2 mg PRN Q2HR PRN IV PAIN; Start 07/18/17 at 15:30 Sodium Chloride 1,000 ml @ 100 mls/hr Q10H PRN IV SEE COMMENTS; Start at 12:00 Multivitamins (Thera M Plus) 1 tab DAILY PO Last administered on 07/22/17 08: 26; Start 07/19/17 at 10:00 Ascorbic Acid (Vitamin C) 500 mg DAILY PO Last administered on 07/22/17 08:26 ; Start 07/19/17 at 10:00 Gabapentin (Neurontin) 300 mg TID PO Last administered on 07/22/17 20:29; Start 07/19/17 at 09:45 Acetaminophen/ Hydrocodone Bitart (Lortab 7.5/325) 1 tab PRN Q4HRS PRN PO PAIN ; Start 07/19/17 at 09:45 Metoprolol Tartrate (Lopressor) 25 mg BID PO Last administered on 07/22/17 20: 30; Start 07/21/17 at 21:00 Metoprolol Tartrate (Lopressor) 25 mg 1X ONCE PO ; Start 07/21/17 at 09:45; Stop 07/21/17 at 09:51; Status DC Active Scripts Active Flomax (Tamsulosin Hcl) 0.4 Mg Cap.er.24h 0.4 Mg PO QHS Reported Humalog (Insulin Lispro) 100 Unit/1 Ml Insuln.pen 7 Unit SQ TIDWMEALS Tylenol (Acetaminophen) 325 Mg Tablet 650 Mg PO PRN Q4HRS PRN Losartan Potassium 50 Mg Tablet 50 Mg PO QHS Lantus Solostar (Insulin Glargine,Hum.rec.anlog) 100 Unit/1 Ml Insuln.pen 19 Unit SQ QHS Colace (Docusate Sodium) 100 Mg Capsule 100 Mg PO DAILY Clopidogrel (Clopidogrel Bisulfate) 75 Mg Tablet 75 Mg PO DAILY Hydrocodone-Apap 5-325 (Hydrocodone Bit/Acetaminophen) 1 Each Tablet 1 Tab PO PRN Q6HRS PRN Allergies Allergies: Coded Allergies: I S O L A T I O N *CONTACT* (Verified Allergy, Unknown, 07/18/17) mrsa aspirin (Verified Adverse Reaction, Intermediate, Nausea and Vomiting, GI BLEED, 07/18/17) Vitals VITALS Vital Signs Date Time Temp Pulse Resp B/P (MAP) Pulse Ox O2 Delivery O2 Flow Rate FiO2 07/22/17 20:30 89 140/78 07/22/17 20:00 Room Air 07/22/17 19:00 98.0 17 97 98.0 Labs Labs Laboratory Tests Test 07/21/17 04:00 07/21/17 08:22 07/21/17 12:08 07/21/17 17:06 White Blood Count 10.0 x10^3/uL (4.0-11.0) Red Blood Count 2.27 x10^6/uL (4.30-5.70) Hemoglobin 6.8 g/dL (13.0-17.5) Hematocrit 20.5 % (39.0-53.0) Mean Corpuscular Volume 90 fL (79-100) Mean Corpuscular Hemoglobin 30 pg (25-35) Mean Corpuscular Hemoglobin Concent 33 g/dL (31-37) Red Cell Distribution Width 15.6 % (11.5-14.5) Platelet Count 171 x10^3/uL (140-400) Neutrophils (%) (Auto) 62 % (31-73) Lymphocytes (%) (Auto) 28 % (24-48) Monocytes (%) (Auto) 8 % (0-9) Eosinophils (%) (Auto) 2 % (0-3) Basophils (%) (Auto) 1 % (0-3) Neutrophils # (Auto) 6.2 x10^3uL (1.8-7.7) Lymphocytes # (Auto) 2.8 x10^3/uL (1.0-4.8) Monocytes # (Auto) 0.8 x10^3/uL (0.0-1.1) Eosinophils # (Auto) 0.1 x10^3/uL (0.0-0.7) Basophils # (Auto) 0.0 x10^3/uL (0.0-0.2) Sodium Level 140 mmol/L (136-145) Potassium Level 4.4 mmol/L (3.5-5.1) Chloride Level 110 mmol/L (98-107) Carbon Dioxide Level 23 mmol/L (21-32) Anion Gap 7 (6-14) Blood Urea Nitrogen 37 mg/dL (8-26) Creatinine 1.6 mg/dL (0.7-1.3) Estimated GFR (Cockcroft-Gault) 54.2 BUN/Creatinine Ratio 23 (6-20) Glucose Level 273 mg/dL (70-99) Calcium Level 7.7 mg/dL (8.5-10.1) Total Bilirubin 0.2 mg/dL (0.2-1.0) Aspartate Amino Transf (AST/SGOT) 26 U/L (15-37) Alanine Aminotransferase (ALT/SGPT) 15 U/L (16-63) Alkaline Phosphatase 122 U/L (46-116) Total Protein 6.1 g/dL (6.4-8.2) Albumin 1.1 g/dL (3.4-5.0) Albumin/Globulin Ratio 0.2 (1.0-1.7) Glucose (Fingerstick) 225 mg/dL (70-99) 157 mg/dL (70-99) 181 mg/dL (70-99) Test 07/21/17 21:17 07/22/17 08:10 07/22/17 09:50 07/22/17 12:03 Glucose (Fingerstick) 205 mg/dL (70-99) 261 mg/dL (70-99) 259 mg/dL (70-99) White Blood Count 11.1 x10^3/uL (4.0-11.0) Red Blood Count 2.81 x10^6/uL (4.30-5.70) Hemoglobin 8.1 g/dL (13.0-17.5) Hematocrit 24.6 % (39.0-53.0) Mean Corpuscular Volume 88 fL (79-100) Mean Corpuscular Hemoglobin 29 pg (25-35) Mean Corpuscular Hemoglobin Concent 33 g/dL (31-37) Red Cell Distribution Width 16.0 % (11.5-14.5) Platelet Count 188 x10^3/uL (140-400) Neutrophils (%) (Auto) 71 % (31-73) Lymphocytes (%) (Auto) 21 % (24-48) Monocytes (%) (Auto) 6 % (0-9) Eosinophils (%) (Auto) 2 % (0-3) Basophils (%) (Auto) 0 % (0-3) Neutrophils # (Auto) 7.9 x10^3uL (1.8-7.7) Lymphocytes # (Auto) 2.3 x10^3/uL (1.0-4.8) Monocytes # (Auto) 0.6 x10^3/uL (0.0-1.1) Eosinophils # (Auto) 0.2 x10^3/uL (0.0-0.7) Basophils # (Auto) 0.0 x10^3/uL (0.0-0.2) Sodium Level 139 mmol/L (136-145) Potassium Level 3.8 mmol/L (3.5-5.1) Chloride Level 108 mmol/L (98-107) Carbon Dioxide Level 22 mmol/L (21-32) Anion Gap 9 (6-14) Blood Urea Nitrogen 39 mg/dL (8-26) Creatinine 1.8 mg/dL (0.7-1.3) Estimated GFR (Cockcroft-Gault) 47.3 BUN/Creatinine Ratio 22 (6-20) Glucose Level 228 mg/dL (70-99) Calcium Level 7.9 mg/dL (8.5-10.1) Total Bilirubin 0.2 mg/dL (0.2-1.0) Aspartate Amino Transf (AST/SGOT) 35 U/L (15-37) Alanine Aminotransferase (ALT/SGPT) 22 U/L (16-63) Alkaline Phosphatase 133 U/L (46-116) Total Protein 7.1 g/dL (6.4-8.2) Albumin 1.1 g/dL (3.4-5.0) Albumin/Globulin Ratio 0.2 (1.0-1.7) Test 07/22/17 16:38 07/22/17 20:27 Glucose (Fingerstick) 186 mg/dL (70-99) 209 mg/dL (70-99) Laboratory Tests Test 07/22/17 08:10 07/22/17 09:50 07/22/17 12:03 07/22/17 16:38 Glucose (Fingerstick) 261 mg/dL (70-99) 259 mg/dL (70-99) 186 mg/dL (70-99) White Blood Count 11.1 x10^3/uL (4.0-11.0) Red Blood Count 2.81 x10^6/uL (4.30-5.70) Hemoglobin 8.1 g/dL (13.0-17.5) Hematocrit 24.6 % (39.0-53.0) Mean Corpuscular Volume 88 fL (79-100) Mean Corpuscular Hemoglobin 29 pg (25-35) Mean Corpuscular Hemoglobin Concent 33 g/dL (31-37) Red Cell Distribution Width 16.0 % (11.5-14.5) Platelet Count 188 x10^3/uL (140-400) Neutrophils (%) (Auto) 71 % (31-73) Lymphocytes (%) (Auto) 21 % (24-48) Monocytes (%) (Auto) 6 % (0-9) Eosinophils (%) (Auto) 2 % (0-3) Basophils (%) (Auto) 0 % (0-3) Neutrophils # (Auto) 7.9 x10^3uL (1.8-7.7) Lymphocytes # (Auto) 2.3 x10^3/uL (1.0-4.8) Monocytes # (Auto) 0.6 x10^3/uL (0.0-1.1) Eosinophils # (Auto) 0.2 x10^3/uL (0.0-0.7) Basophils # (Auto) 0.0 x10^3/uL (0.0-0.2) Sodium Level 139 mmol/L (136-145) Potassium Level 3.8 mmol/L (3.5-5.1) Chloride Level 108 mmol/L (98-107) Carbon Dioxide Level 22 mmol/L (21-32) Anion Gap 9 (6-14) Blood Urea Nitrogen 39 mg/dL (8-26) Creatinine 1.8 mg/dL (0.7-1.3) Estimated GFR (Cockcroft-Gault) 47.3 BUN/Creatinine Ratio 22 (6-20) Glucose Level 228 mg/dL (70-99) Calcium Level 7.9 mg/dL (8.5-10.1) Total Bilirubin 0.2 mg/dL (0.2-1.0) Aspartate Amino Transf (AST/SGOT) 35 U/L (15-37) Alanine Aminotransferase (ALT/SGPT) 22 U/L (16-63) Alkaline Phosphatase 133 U/L (46-116) Total Protein 7.1 g/dL (6.4-8.2) Albumin 1.1 g/dL (3.4-5.0) Albumin/Globulin Ratio 0.2 (1.0-1.7) Test 07/22/17 20:27 Glucose (Fingerstick) 209 mg/dL (70-99) Assessment/Plan Assessment/Plan Patient is an unfortunate 56-year-old man with extensive vascular disease who is required a left [id number] amputation and right [id number] amputation. He has the onset of left arm paralysis which is likely due to stroke. CT scan of the head was not revealing that the positioning in the scanner was poor. He's had recent investigation in May 2017 with carotid Doppler, brain MRI and echocardiogram. We do not need to repeat the carotid Doppler or echocardiogram. I would continue with clopidogrel and statins. I would recommend repeating the MRI brain without contrast if his recent surgical intervention does not contraindicate. He will need extensive rehabilitation. He will likely require care home care. GUILLE HUNT MD Jul 22, 2017 23:00
[2017-07-22] MEDS: ACETAMINOPHEN 325 MG TABLET. PO PRN (23:20)
[2017-07-22 23:47] VITALS: BP 131/63
[2017-07-23 03:35] VITALS: BP 129/66
[2017-07-23] MEDS: PIPERACILLIN/TAZO IV Push 3.375 GM VIAL. IVP SCH ×3 (05:56→18:10)
[2017-07-23 07:15] VITALS: BP 135/71
[2017-07-23] MEDS: METOPROLOL TART IMMED RELEASE 25 MG TABLET. PO SCH ×2 (09:36→21:00)
[2017-07-23] MEDS: GABAPENTIN 300 MG CAPSULE. PO SCH ×3 (09:36→20:59)
[2017-07-23] MEDS: LACTOBACILLUS RHAMNOSUS GG 1 CAPSULE. PO SCH ×2 (09:36→20:59)
[2017-07-23] MEDS: DOCUSATE SODIUM 100 MG CAPSULE. PO SCH (09:36)
[2017-07-23] MEDS: CLOPIDOGREL BISULFATE 75 MG TABLET PO SCH (09:36)
[2017-07-23] MEDS: MULTIVITAMIN with MINERAL TABLET. PO SCH (09:36)
[2017-07-23] MEDS: INSULIN ASPART 300 UNITS/3 ML INSULN.PEN SQ SCH ×6 (09:45→18:19)
[2017-07-23] MEDS: ASCORBIC ACID 500 MG TABLET PO SCH (09:47)
[2017-07-23 11:27] VITALS: BP 127/66
--- NOTE | 2017-07-23 12:04 | PDOC ---
PROGRESS NOTES Assessment Problems Medical Problems: (1) Hyperglycemia Status: Acute 2. Profound left arm weakness and numbness. I am concerned with his vascular disease that he has suffered a stroke in the right hemisphere leading to this weakness and numbness. The swelling may be dependent because he is not moving the arm. He's had an ultrasound of the veins which did not reveal evidence of deep venous thrombosis. I would like to proceed with an MRI of the brain but we will have the nurse check with the surgeon to make sure magnetic brittney were not used for the surgery which could be damaged by an MRI. Plan I will proceed with an MRI of the brain if it's acceptable from a surgical perspective. If this does reveal stroke then further investigation may be indicated to try to address risk factors. Subjective I'm not in any pain. My other stroke affected the right arm. The left arm became weak when I was admitted to the hospital. It feels numb but it's not in pain. Objective Vital Signs Date Time Temp Pulse Resp B/P (MAP) Pulse Ox O2 Delivery O2 Flow Rate FiO2 07/23/17 09:36 76 135/71 07/23/17 08:00 Room Air 07/23/17 07:15 98.8 20 99 98.8 Intake and Output 07/23/17 07:00 Intake Total 1270 ml Output Total 1600 ml Balance -330 ml Intake Oral 1270 ml Output Urine Total 1600 ml # Voids 2 PHYSICAL EXAM He was much more alert today. He was able to attend and interact. The speech was much more understandable and fluent. He was able to follow commands well. The eyes were conjugate. He smiled symmetrically. His tongue was midline. He had trace movements with left elbow flexion. He had movement of the right arm but was generally weak 4/5. He was able to raise both legs off the bed but only a few inches. He was generally weak. He also complained of numbness of the right leg but not the left. The dressings were in place for the legs. Review of Relevant I have reviewed the following items yobani (where applicable) has been applied. Labs Laboratory Tests Test 07/21/17 12:08 07/21/17 17:06 07/21/17 21:17 07/22/17 08:10 Glucose (Fingerstick) 157 mg/dL (70-99) 181 mg/dL (70-99) 205 mg/dL (70-99) 261 mg/dL (70-99) Test 07/22/17 09:50 07/22/17 12:03 07/22/17 16:38 07/22/17 20:27 White Blood Count 11.1 x10^3/uL (4.0-11.0) Red Blood Count 2.81 x10^6/uL (4.30-5.70) Hemoglobin 8.1 g/dL (13.0-17.5) Hematocrit 24.6 % (39.0-53.0) Mean Corpuscular Volume 88 fL (79-100) Mean Corpuscular Hemoglobin 29 pg (25-35) Mean Corpuscular Hemoglobin Concent 33 g/dL (31-37) Red Cell Distribution Width 16.0 % (11.5-14.5) Platelet Count 188 x10^3/uL (140-400) Neutrophils (%) (Auto) 71 % (31-73) Lymphocytes (%) (Auto) 21 % (24-48) Monocytes (%) (Auto) 6 % (0-9) Eosinophils (%) (Auto) 2 % (0-3) Basophils (%) (Auto) 0 % (0-3) Neutrophils # (Auto) 7.9 x10^3uL (1.8-7.7) Lymphocytes # (Auto) 2.3 x10^3/uL (1.0-4.8) Monocytes # (Auto) 0.6 x10^3/uL (0.0-1.1) Eosinophils # (Auto) 0.2 x10^3/uL (0.0-0.7) Basophils # (Auto) 0.0 x10^3/uL (0.0-0.2) Sodium Level 139 mmol/L (136-145) Potassium Level 3.8 mmol/L (3.5-5.1) Chloride Level 108 mmol/L (98-107) Carbon Dioxide Level 22 mmol/L (21-32) Anion Gap 9 (6-14) Blood Urea Nitrogen 39 mg/dL (8-26) Creatinine 1.8 mg/dL (0.7-1.3) Estimated GFR (Cockcroft-Gault) 47.3 BUN/Creatinine Ratio 22 (6-20) Glucose Level 228 mg/dL (70-99) Calcium Level 7.9 mg/dL (8.5-10.1) Total Bilirubin 0.2 mg/dL (0.2-1.0) Aspartate Amino Transf (AST/SGOT) 35 U/L (15-37) Alanine Aminotransferase (ALT/SGPT) 22 U/L (16-63) Alkaline Phosphatase 133 U/L (46-116) Total Protein 7.1 g/dL (6.4-8.2) Albumin 1.1 g/dL (3.4-5.0) Albumin/Globulin Ratio 0.2 (1.0-1.7) Glucose (Fingerstick) 259 mg/dL (70-99) 186 mg/dL (70-99) 209 mg/dL (70-99) Test 07/23/17 07:52 Glucose (Fingerstick) 235 mg/dL (70-99) Laboratory Tests Test 07/22/17 12:03 07/22/17 16:38 07/22/17 20:27 07/23/17 07:52 Glucose (Fingerstick) 259 mg/dL (70-99) 186 mg/dL (70-99) 209 mg/dL (70-99) 235 mg/dL (70-99) Microbiology 07/15/17 Blood Culture - Final, Complete NO GROWTH AFTER 5 DAYS 07/11/17 Urine Culture - Final, Complete 07/11/17 Urine Culture Result 1 (CHICO) - Final, Complete 07/11/17 Antimicrobic Susceptibility - Final, Complete 07/14/17 Gram Stain - Final, Complete Medications Current Medications Sodium Chloride 1,000 ml @ 1,000 mls/hr 1X ONCE IV Last administered on 07/11 18:11; Start 07/11/17 at 18:00; Stop 07/11/17 at 18:59; Status DC Insulin Human Regular (NovoLIN R VIAL) 10 unit 1X ONCE IV Last administered on 07/11/17 18:56; Start 07/11/17 at 19:00; Stop 07/11/17 at 19:01; Status DC Acetaminophen (Tylenol) 650 mg PRN Q4HRS PRN PO MILD PAIN Last administered on 07/22/17 23:20; Start 07/12/17 at 13:00 Clopidogrel Bisulfate (Plavix) 75 mg DAILY PO Last administered on 07/23/17 09 :36; Start 07/12/17 at 14:00 Docusate Sodium (Colace) 100 mg DAILY PO Last administered on 07/23/17 09:36; Start 07/12/17 at 14:00 Acetaminophen/ Hydrocodone Bitart (Lortab 5/325) 1 tab PRN Q6HRS PRN PO MODERATE PAIN; Start 07/12/17 at 13:00 Losartan Potassium (Cozaar) 50 mg QHS PO Last administered on 07/22/17 20:29; Start 07/12/17 at 21:00 Tamsulosin HCl (Flomax) 0.4 mg QHS PO Last administered on 07/22/17 20:29; Start 07/12/17 at 21:00 Insulin Detemir (Levemir) 19 units QHS SQ Last administered on 07/13/17 21:22 ; Start 07/12/17 at 21:00; Stop 07/14/17 at 12:26; Status DC Insulin Aspart (NovoLOG) 7 units TIDAC SQ Last administered on 07/23/17 09:45 ; Start 07/12/17 at 16:30 Piperacillin Sod/ Tazobactam Sod 3.375 gm/Dextrose 50 ml @ 100 mls/hr Q6HRS IV ; Start 07/12/17 at 16:00; Status Cancel Piperacillin Sod/ Tazobactam Sod (Zosyn) 3.375 gm Q6HRS IVP Last administered on 07/23/17 05:56; Start 07/12/17 at 16:00 Enoxaparin Sodium (Lovenox 40mg Syringe) 40 mg Q24H SQ Last administered on 17:53; Start 07/13/17 at 15:00 Insulin Detemir (Levemir) 22 units QHS SQ Last administered on 07/22/17 20:37 ; Start 07/14/17 at 21:00 Lactobacillus Rhamnosus (Culturelle) 1 cap BID PO Last administered on 09:36; Start 07/14/17 at 21:00 Sodium Chloride 500 ml @ 500 mls/hr 1X ONCE IV Last administered on 09:09; Start 07/15/17 at 09:00; Stop 07/15/17 at 09:59; Status DC Ceftriaxone Sodium 1 gm/ Dextrose 50 ml @ 100 mls/hr Q24H IV ; Start 07/16/17 at 12:45; Status UNV Ondansetron HCl (Zofran) 4 mg PRN Q6HRS PRN IV NAUSEA/VOMITING; Start at 12:45 Acetaminophen (Tylenol) 650 mg PRN Q6HRS PRN PO pain; Start 07/16/17 at 12:45 ; Status UNV Insulin Aspart (NovoLOG) 0-9 UNITS TIDWMEALS SQ Last administered on 07/23/17 09:46; Start 07/16/17 at 17:00 Dextrose (Dextrose 50%-Water Syringe) 12.5 gm PRN Q15MIN PRN IV SEE COMMENTS; Start 07/16/17 at 12:45 Oxycodone/ Acetaminophen (Percocet 5/325) 1 tab PRN Q4HRS PRN PO PAIN; Start 07/16/17 at 12:45; Stop 07/19/17 at 09:35; Status DC Ceftriaxone Sodium (Rocephin) 1 gm Q24H IVP Last administered on 07/16/17 13: 52; Start 07/16/17 at 13:00; Stop 07/16/17 at 14:30; Status DC Piperacillin Sod/ Tazobactam Sod (Zosyn Per Pharmacy) 1 each PRN DAILY PRN MC SEE COMMENTS; Start 07/16/17 at 14:30; Stop 07/18/17 at 15:44; Status DC Ondansetron HCl (Zofran) 4 mg PRN Q6HRS PRN IV NAUSEA/VOMITING; Start at 07:45; Stop 07/19/17 at 07:44; Status DC Fentanyl Citrate (Fentanyl 2ml Vial) 25 mcg PRN Q5MIN PRN IV MILD PAIN; Start 07/18/17 at 07:45; Stop 07/19/17 at 07:44; Status DC Fentanyl Citrate (Fentanyl 2ml Vial) 50 mcg PRN Q5MIN PRN IV MODERATE PAIN; Start 07/18/17 at 07:45; Stop 07/19/17 at 07:44; Status DC Morphine Sulfate 1 mg PRN Q10MIN PRN IV SEVERE PAIN; Start 07/18/17 at 07:45; Stop 07/19/17 at 07:44; Status DC Ringer's Solution 1,000 ml @ 30 mls/hr Q24H IV ; Start 07/18/17 at 07:43; Stop 07/18/17 at 19:42; Status DC Lidocaine HCl (Xylocaine-Mpf 1% Vial) 2 ml 1X PRN PRN ID IV START; Start 07/18 at 07:45; Stop 07/19/17 at 07:44; Status DC Hydromorphone HCl (Dilaudid) 0.5 mg PRN Q10MIN PRN IV SEV PAIN, Second choice; Start 07/18/17 at 07:45; Stop 07/19/17 at 07:44; Status DC Prochlorperazine Edisylate (Compazine) 5 mg PACU PRN PRN IV NAUSEA, MRX1; Start 07/18/17 at 07:45; Stop 07/19/17 at 07:44; Status DC Sevoflurane (Ultane) 90 ml STK-MED ONCE IH ; Start 07/18/17 at 11:37; Stop at 12:47; Status DC Neostigmine Methylsulfate (Bloxiverz) 10 mg STK-MED ONCE .ROUTE ; Start at 11:37; Stop 07/18/17 at 12:47; Status DC Midazolam HCl (Versed) 2 mg STK-MED ONCE .ROUTE ; Start 07/18/17 at 11:38; Stop 07/18/17 at 12:47; Status DC Fentanyl Citrate (Fentanyl 2ml Vial) 100 mcg STK-MED ONCE .ROUTE ; Start at 11:38; Stop 07/18/17 at 12:47; Status DC Glycopyrrolate (Robinul) 1 mg STK-MED ONCE .ROUTE ; Start 07/18/17 at 11:38; Stop 07/18/17 at 12:47; Status DC Rocuronium [place] (Zemuron) 50 mg STK-MED ONCE .ROUTE ; Start 07/18/17 at 11: 38; Stop 07/18/17 at 12:47; Status DC Propofol 20 ml @ As Directed STK-MED ONCE IV ; Start 07/18/17 at 11:38; Stop 07/18/17 at 12:47; Status DC Lidocaine HCl (Lidocaine Pf 2% Vial) 5 ml STK-MED ONCE .ROUTE ; Start 07/18/17 at 11:38; Stop 07/18/17 at 12:47; Status DC Dexamethasone Sodium Phosphate (Decadron) 20 mg STK-MED ONCE .ROUTE ; Start at 11:38; Stop 07/18/17 at 12:47; Status DC Ondansetron HCl (Zofran) 4 mg STK-MED ONCE .ROUTE ; Start 07/18/17 at 11:38; Stop 07/18/17 at 12:48; Status DC Cefazolin Sodium 1 gm/Sodium Chloride 250 ml @ 250 mls/hr 1X PERIOP ONCE IRR ; Start 07/18/17 at 14:00; Stop 07/18/17 at 14:59; Status DC Vasopressin (Vasostrict) 20 unit STK-MED ONCE .ROUTE ; Start 07/18/17 at 14:27 ; Stop 07/18/17 at 14:28; Status DC Fentanyl Citrate (Fentanyl 2ml Vial) 100 mcg STK-MED ONCE .ROUTE ; Start at 14:42; Stop 07/18/17 at 14:43; Status DC Morphine Sulfate 2 mg PRN Q2HR PRN IV PAIN; Start 07/18/17 at 15:30 Sodium Chloride 1,000 ml @ 100 mls/hr Q10H PRN IV SEE COMMENTS; Start at 12:00 Multivitamins (Thera M Plus) 1 tab DAILY PO Last administered on 07/23/17 09: 36; Start 07/19/17 at 10:00 Ascorbic Acid (Vitamin C) 500 mg DAILY PO Last administered on 07/23/17 09:47 ; Start 07/19/17 at 10:00 Gabapentin (Neurontin) 300 mg TID PO Last administered on 07/23/17 09:36; Start 07/19/17 at 09:45 Acetaminophen/ Hydrocodone Bitart (Lortab 7.5/325) 1 tab PRN Q4HRS PRN PO PAIN ; Start 07/19/17 at 09:45 Metoprolol Tartrate (Lopressor) 25 mg BID PO Last administered on 07/23/17 09: 36; Start 07/21/17 at 21:00 Metoprolol Tartrate (Lopressor) 25 mg 1X ONCE PO ; Start 07/21/17 at 09:45; Stop 07/21/17 at 09:51; Status DC Active Scripts Active Flomax (Tamsulosin Hcl) 0.4 Mg Cap.er.24h 0.4 Mg PO QHS Reported Humalog (Insulin Lispro) 100 Unit/1 Ml Insuln.pen 7 Unit SQ TIDWMEALS Tylenol (Acetaminophen) 325 Mg Tablet 650 Mg PO PRN Q4HRS PRN Losartan Potassium 50 Mg Tablet 50 Mg PO QHS Lantus Solostar (Insulin Glargine,Hum.rec.anlog) 100 Unit/1 Ml Insuln.pen 19 Unit SQ QHS Colace (Docusate Sodium) 100 Mg Capsule 100 Mg PO DAILY Clopidogrel (Clopidogrel Bisulfate) 75 Mg Tablet 75 Mg PO DAILY Hydrocodone-Apap 5-325 (Hydrocodone Bit/Acetaminophen) 1 Each Tablet 1 Tab PO PRN Q6HRS PRN Vitals/I & O Vital Sign - Last 24 Hours 07/22/17 07/22/17 07/22/17 07/22/17 14:37 19:00 20:00 20:29 Temp 98.6 98.0 98.6 98.0 Pulse 74 89 89 Resp 18 17 B/P (MAP) 136/70 (92) 140/78 (98) 140/78 Pulse Ox 99 97 O2 Delivery Room Air Room Air Room Air 07/22/17 07/22/17 07/23/17 07/23/17 20:30 23:47 03:35 07:15 Temp 101.7 97.9 98.8 101.7 97.9 98.8 Pulse 89 82 77 76 Resp 17 20 20 B/P (MAP) 140/78 131/63 (85) 129/66 (87) 135/71 (92) Pulse Ox 95 98 99 O2 Delivery Room Air Room Air Room Air 07/23/17 07/23/17 08:00 09:36 Pulse 76 B/P (MAP) 135/71 O2 Delivery Room Air Intake and Output 07/22/17 07/22/17 07/23/17 15:00 23:00 07:00 Intake Total 700 ml 570 ml Output Total 750 ml 450 ml 400 ml Balance -750 ml 250 ml 170 ml GUILLE HUNT MD Jul 23, 2017 12:04
--- NOTE | 2017-07-23 12:41 | CONS ---
DATE OF CONSULTATION: 07/22/2017 REFERRING PHYSICIAN: Dr. Chris. REASON FOR CONSULTATION: Stroke. HISTORY OF PRESENT ILLNESS: The patient is a 56-year-old man who presented to [facility] because of nonhealing bilateral below the knee amputations. He has been at [facility] doing wound care, but despite efforts, he is getting worse. He has been treated in the hospital since 07/11/2017. He underwent a revision of his [id number] amputation on the right, so now it is above the knee amputation. He notes that for about 5 days, he has not been able to move his left arm. I do not know the validity of his history as he was a very limited historian. When he arrived initially in the Emergency Room, his glucose was 500. Of note is that he was recently admitted to [facility] and seen by the neurologist and found to have some left hemispheric strokes. This was determined by MRI. PAST MEDICAL HISTORY: 1. Recent strokes. 2. Bilateral lavee-bag-mfbg amputations, now the right is revised, so it is [id number] amputation. 3. Nonhealing wounds of the amputation stump. 4. Diabetes. 5. Hypertension. 6. Hyperlipidemia. ALLERGIES: No known allergies to drugs. MEDICATIONS PRIOR ADMISSION: Tylenol as needed, vitamin C, clopidogrel 75 mg, Colace, hydrocodone/acetaminophen every 6 hours as needed, insulin, losartan 50 mg and tamsulosin 0.4 mg. FAMILY HISTORY: Diabetes. SOCIAL HISTORY: He does not smoke tobacco, drink alcohol or use recreational drugs. REVIEW OF SYSTEMS: He is a very poor historian and quite lethargic. He states there is pain in the left arm with movement. He will not answer most questions. PHYSICAL EXAMINATION: VITAL SIGNS: The blood pressure was 140/78, pulse 89, respirations 17, temperature 98 degrees Fahrenheit. Oximetry was 97% on room air. Weight was 167 pounds, height 79 inches, with a calculated body mass index of 18.8. GENERAL: He was very lethargic. With stimulation, he would briefly open his eyes and answer some questions. When he was half asleep, the words were unintelligible. When he woke up, more so, the words were understandable. He was able to follow some simple commands, but would drift off very quickly. He was not well oriented. He appeared well groomed, but under nourished. NEUROLOGIC: Examination of the cranial nerves revealed visual nunes appeared full. He was able to count fingers. Extraocular movements were intact, although at times his eyes appear somewhat dysconjugate. Movements were somewhat irregular. Facial sensation was intact. The muscles of mastication were symmetric. He would not smile despite request. His face appeared symmetric, and when he talked, he appeared to activate both sides. Hearing was intact to loud clap. The palate arches symmetrically and the tongue was midline. Muscle bulk was symmetric. Tone was flaccid in the left arm. Power was generally weak in the right arm and flaccid in the left arm. He did not activate his lower extremities. Reflexes were absent throughout. Coordination testing was not possible as he would not cooperate. Sensory exam was intact to nail bed pressure on the right, but not the left. Peripheral pulses were symmetric in the neck and at the wrists. There was severe edema in the left extremity. There was minimal edema of the right extremity. There was some edema in the legs. REVIEW OF LABORATORY DATA: CBC revealed an elevated white count of 11.1, with hemoglobin low at 8.1, hematocrit 25.6 and platelet count 188. On 07/21, he presented with a hemoglobin of 6.8. Electrolytes revealed normal sodium and potassium today, but chloride was 108. BUN was 39, creatinine 1.8, with a calculated GFR of 47.3. Glucose was 228. Capillary blood glucose today ranged from 186 to 261. Calcium was low at 7.9, alkaline phosphatase was elevated at 133. Albumin was low at 1.1. Total protein normal at 7.1. Liver enzymes were not elevated. PT/INR on 07/17 was 1.2. Urinalysis revealed greater than 300 mg/dL of protein and greater than 1000 glucose. There was a large amount of blood, positive nitrite, large amount of leukocyte esterase with 11-20 white cells, 6-10 red cells and many bacteria and only occasional squamous epithelial cells. Nasal screen MRSA was positive. The most recent MRI brain was 05/26/2017, it revealed some subacute left hemispheric stroke. Carotid Doppler on the same day did not reveal hemodynamically significant stenosis. IMAGING: CT scan of the head from today did not reveal an acute process, but positioning was very poor in the scanner. The echocardiogram was also from 05/26/2017 and revealed an ejection fraction greater than 70%. There was no atrial septal defect or patent foramen ovale. IMPRESSION: The patient is a 56-year-old man who has had [id number] amputation and now revision on the right, so it is [id number] amputation. He has had severe vascular disease. In May, he did have evidence of subacute stroke. Full investigation did not reveal a specific treatable process other than medical management, which he has been receiving. He now has a flaccid left arm, which is extremely swollen. He did have a carotid ultrasound, which did not reveal venous thrombosis. This may be dependent edema. It is highly likely he has had another stroke this time in the right hemisphere, leading to the left arm paresis. This could easily be missed on the CAT scan, especially with the poor positioning that occurred. The recent carotid Doppler did not reveal hemodynamically significant stenosis, and the recent echocardiogram did not reveal a cardioembolic source. This is likely intrinsic vascular disease. RECOMMENDATIONS: I would proceed with an MRI brain, but I am not certain he can with the recent surgery. I will leave the ordering of this test to the vascular surgeons and would order an MRI brain without contrast if it is not contraindicated based on materials they may have used for this procedure. Embolic source has not been identified, so there is no indication for anticoagulation. I will continue with clopidogrel for stroke prevention. He will need extensive therapy. He will require detention care. GUILLE HUNT MD DR: LEILANI/maria isabel JOB#: [id number] / [id number] jorge l CHRIS DR
--- NOTE | 2017-07-23 14:29 | PDOC ---
Provider Note Provider Note Follow-up revision of below-knee amputation to slaku-yre-axme amputation, right leg. Patient has developed a left sided hemiparesis. This is new. His right above-knee amputation incision is healing. No brittney. He does have a flexion deformity of his left knee with a small ulcer on the anterior aspect of his below-knee amputation site and a significant skin injury overlying his patella. His knee is flexed and fixed His left arm is paralyzed Impression ; healing [id number]" on the right. #2 pressure ulcer left patella, he may need to be considered for a left dkhru-xzr-lfsm amputation. #3 Left arm monoparesis, etiology unknown, workup in progress. We'll continue to follow. JODIE ANTHONY MD Jul 23, 2017 14:29
--- NOTE | 2017-07-23 15:07 | PDOC ---
PROGRESS NOTES Chief Complaint Chief Complaint new LUe weakness - likely CVA admit for LE cellulitis Diabetic foot ulcers, s/p bilat amputations 1. Cellulitis with diabetic ulcers R thigh/B stumps: s/p debridement 07/13. 2. DM2: HgbA1c 8.6. 3. PVD: s/p B BKA. 4. UTI: K.pneumoniae, pansensitive. 5. Anemia: of CKD 3 6. weakness and deiliyt 7. htn, poor control 8. severe malnutrition History of Present Illness History of Present Illness new LUE weakness yesterday, CT head neg, Neuro consulted, consider MRI anemia better Hyperglycemia persists blood pressure better leg pain, phantom pain, PT and OT as able DC plan Poor healing previously significant peripheral vascular disease. cont IV zosyn s/p AKA doing well on gabapentin for nerve pain Vitals Vitals Vital Signs Date Time Temp Pulse Resp B/P (MAP) Pulse Ox O2 Delivery O2 Flow Rate FiO2 07/23/17 11:27 98.8 75 18 127/66 (86) 98 Room Air 98.8 Physical Exam General: Alert, Oriented X3, Cooperative, No acute distress Heart: Regular rate, No murmurs Lungs: Clear Abdomen: Soft, No tenderness Extremities: Other (right aka stump dressing dry; minimal drainage per DEWAYNE) Skin: No rashes, Other (bilat ulcers dressed) Labs LABS Laboratory Tests Test 07/22/17 16:38 07/22/17 20:27 07/23/17 07:52 Glucose (Fingerstick) 186 mg/dL (70-99) 209 mg/dL (70-99) 235 mg/dL (70-99) Review of Systems Review of Systems wekaness, poor PO intake Assessment and Plan Assessmemt and Plan Problems Medical Problems: (1) Hyperglycemia Status: Acute Problems: Comment Review of Relevant I have reviewed the following items yobani (where applicable) has been applied. Labs Laboratory Tests Test 07/21/17 17:06 07/21/17 21:17 07/22/17 08:10 07/22/17 09:50 Glucose (Fingerstick) 181 mg/dL (70-99) 205 mg/dL (70-99) 261 mg/dL (70-99) White Blood Count 11.1 x10^3/uL (4.0-11.0) Red Blood Count 2.81 x10^6/uL (4.30-5.70) Hemoglobin 8.1 g/dL (13.0-17.5) Hematocrit 24.6 % (39.0-53.0) Mean Corpuscular Volume 88 fL (79-100) Mean Corpuscular Hemoglobin 29 pg (25-35) Mean Corpuscular Hemoglobin Concent 33 g/dL (31-37) Red Cell Distribution Width 16.0 % (11.5-14.5) Platelet Count 188 x10^3/uL (140-400) Neutrophils (%) (Auto) 71 % (31-73) Lymphocytes (%) (Auto) 21 % (24-48) Monocytes (%) (Auto) 6 % (0-9) Eosinophils (%) (Auto) 2 % (0-3) Basophils (%) (Auto) 0 % (0-3) Neutrophils # (Auto) 7.9 x10^3uL (1.8-7.7) Lymphocytes # (Auto) 2.3 x10^3/uL (1.0-4.8) Monocytes # (Auto) 0.6 x10^3/uL (0.0-1.1) Eosinophils # (Auto) 0.2 x10^3/uL (0.0-0.7) Basophils # (Auto) 0.0 x10^3/uL (0.0-0.2) Sodium Level 139 mmol/L (136-145) Potassium Level 3.8 mmol/L (3.5-5.1) Chloride Level 108 mmol/L (98-107) Carbon Dioxide Level 22 mmol/L (21-32) Anion Gap 9 (6-14) Blood Urea Nitrogen 39 mg/dL (8-26) Creatinine 1.8 mg/dL (0.7-1.3) Estimated GFR (Cockcroft-Gault) 47.3 BUN/Creatinine Ratio 22 (6-20) Glucose Level 228 mg/dL (70-99) Calcium Level 7.9 mg/dL (8.5-10.1) Total Bilirubin 0.2 mg/dL (0.2-1.0) Aspartate Amino Transf (AST/SGOT) 35 U/L (15-37) Alanine Aminotransferase (ALT/SGPT) 22 U/L (16-63) Alkaline Phosphatase 133 U/L (46-116) Total Protein 7.1 g/dL (6.4-8.2) Albumin 1.1 g/dL (3.4-5.0) Albumin/Globulin Ratio 0.2 (1.0-1.7) Test 07/22/17 12:03 07/22/17 16:38 07/22/17 20:27 07/23/17 07:52 Glucose (Fingerstick) 259 mg/dL (70-99) 186 mg/dL (70-99) 209 mg/dL (70-99) 235 mg/dL (70-99) Laboratory Tests Test 07/22/17 16:38 07/22/17 20:27 07/23/17 07:52 Glucose (Fingerstick) 186 mg/dL (70-99) 209 mg/dL (70-99) 235 mg/dL (70-99) Microbiology 07/15/17 Blood Culture - Final, Complete NO GROWTH AFTER 5 DAYS 07/11/17 Urine Culture - Final, Complete 07/11/17 Urine Culture Result 1 (CHICO) - Final, Complete 07/11/17 Antimicrobic Susceptibility - Final, Complete 07/14/17 Gram Stain - Final, Complete Medications Current Medications Sodium Chloride 1,000 ml @ 1,000 mls/hr 1X ONCE IV Last administered on 07/11 18:11; Start 07/11/17 at 18:00; Stop 07/11/17 at 18:59; Status DC Insulin Human Regular (NovoLIN R VIAL) 10 unit 1X ONCE IV Last administered on 07/11/17 18:56; Start 07/11/17 at 19:00; Stop 07/11/17 at 19:01; Status DC Acetaminophen (Tylenol) 650 mg PRN Q4HRS PRN PO MILD PAIN Last administered on 07/22/17 23:20; Start 07/12/17 at 13:00 Clopidogrel Bisulfate (Plavix) 75 mg DAILY PO Last administered on 07/23/17 09 :36; Start 07/12/17 at 14:00 Docusate Sodium (Colace) 100 mg DAILY PO Last administered on 07/23/17 09:36; Start 07/12/17 at 14:00 Acetaminophen/ Hydrocodone Bitart (Lortab 5/325) 1 tab PRN Q6HRS PRN PO MODERATE PAIN; Start 07/12/17 at 13:00 Losartan Potassium (Cozaar) 50 mg QHS PO Last administered on 07/22/17 20:29; Start 07/12/17 at 21:00 Tamsulosin HCl (Flomax) 0.4 mg QHS PO Last administered on 07/22/17 20:29; Start 07/12/17 at 21:00 Insulin Detemir (Levemir) 19 units QHS SQ Last administered on 07/13/17 21:22 ; Start 07/12/17 at 21:00; Stop 07/14/17 at 12:26; Status DC Insulin Aspart (NovoLOG) 7 units TIDAC SQ Last administered on 07/23/17 13:57 ; Start 07/12/17 at 16:30 Piperacillin Sod/ Tazobactam Sod 3.375 gm/Dextrose 50 ml @ 100 mls/hr Q6HRS IV ; Start 07/12/17 at 16:00; Status Cancel Piperacillin Sod/ Tazobactam Sod (Zosyn) 3.375 gm Q6HRS IVP Last administered on 07/23/17 13:42; Start 07/12/17 at 16:00 Enoxaparin Sodium (Lovenox 40mg Syringe) 40 mg Q24H SQ Last administered on 17:53; Start 07/13/17 at 15:00 Insulin Detemir (Levemir) 22 units QHS SQ Last administered on 07/22/17 20:37 ; Start 07/14/17 at 21:00 Lactobacillus Rhamnosus (Culturelle) 1 cap BID PO Last administered on 09:36; Start 07/14/17 at 21:00 Sodium Chloride 500 ml @ 500 mls/hr 1X ONCE IV Last administered on 09:09; Start 07/15/17 at 09:00; Stop 07/15/17 at 09:59; Status DC Ceftriaxone Sodium 1 gm/ Dextrose 50 ml @ 100 mls/hr Q24H IV ; Start 07/16/17 at 12:45; Status UNV Ondansetron HCl (Zofran) 4 mg PRN Q6HRS PRN IV NAUSEA/VOMITING; Start at 12:45 Acetaminophen (Tylenol) 650 mg PRN Q6HRS PRN PO pain; Start 07/16/17 at 12:45 ; Status UNV Insulin Aspart (NovoLOG) 0-9 UNITS TIDWMEALS SQ Last administered on 07/23/17 13:57; Start 07/16/17 at 17:00 Dextrose (Dextrose 50%-Water Syringe) 12.5 gm PRN Q15MIN PRN IV SEE COMMENTS; Start 07/16/17 at 12:45 Oxycodone/ Acetaminophen (Percocet 5/325) 1 tab PRN Q4HRS PRN PO PAIN; Start 07/16/17 at 12:45; Stop 07/19/17 at 09:35; Status DC Ceftriaxone Sodium (Rocephin) 1 gm Q24H IVP Last administered on 07/16/17 13: 52; Start 07/16/17 at 13:00; Stop 07/16/17 at 14:30; Status DC Piperacillin Sod/ Tazobactam Sod (Zosyn Per Pharmacy) 1 each PRN DAILY PRN MC SEE COMMENTS; Start 07/16/17 at 14:30; Stop 07/18/17 at 15:44; Status DC Ondansetron HCl (Zofran) 4 mg PRN Q6HRS PRN IV NAUSEA/VOMITING; Start at 07:45; Stop 07/19/17 at 07:44; Status DC Fentanyl Citrate (Fentanyl 2ml Vial) 25 mcg PRN Q5MIN PRN IV MILD PAIN; Start 07/18/17 at 07:45; Stop 07/19/17 at 07:44; Status DC Fentanyl Citrate (Fentanyl 2ml Vial) 50 mcg PRN Q5MIN PRN IV MODERATE PAIN; Start 07/18/17 at 07:45; Stop 07/19/17 at 07:44; Status DC Morphine Sulfate 1 mg PRN Q10MIN PRN IV SEVERE PAIN; Start 07/18/17 at 07:45; Stop 07/19/17 at 07:44; Status DC Ringer's Solution 1,000 ml @ 30 mls/hr Q24H IV ; Start 07/18/17 at 07:43; Stop 07/18/17 at 19:42; Status DC Lidocaine HCl (Xylocaine-Mpf 1% Vial) 2 ml 1X PRN PRN ID IV START; Start 07/18 at 07:45; Stop 07/19/17 at 07:44; Status DC Hydromorphone HCl (Dilaudid) 0.5 mg PRN Q10MIN PRN IV SEV PAIN, Second choice; Start 07/18/17 at 07:45; Stop 07/19/17 at 07:44; Status DC Prochlorperazine Edisylate (Compazine) 5 mg PACU PRN PRN IV NAUSEA, MRX1; Start 07/18/17 at 07:45; Stop 07/19/17 at 07:44; Status DC Sevoflurane (Ultane) 90 ml STK-MED ONCE IH ; Start 07/18/17 at 11:37; Stop at 12:47; Status DC Neostigmine Methylsulfate (Bloxiverz) 10 mg STK-MED ONCE .ROUTE ; Start at 11:37; Stop 07/18/17 at 12:47; Status DC Midazolam HCl (Versed) 2 mg STK-MED ONCE .ROUTE ; Start 07/18/17 at 11:38; Stop 07/18/17 at 12:47; Status DC Fentanyl Citrate (Fentanyl 2ml Vial) 100 mcg STK-MED ONCE .ROUTE ; Start at 11:38; Stop 07/18/17 at 12:47; Status DC Glycopyrrolate (Robinul) 1 mg STK-MED ONCE .ROUTE ; Start 07/18/17 at 11:38; Stop 07/18/17 at 12:47; Status DC Rocuronium [place] (Zemuron) 50 mg STK-MED ONCE .ROUTE ; Start 07/18/17 at 11: 38; Stop 07/18/17 at 12:47; Status DC Propofol 20 ml @ As Directed STK-MED ONCE IV ; Start 07/18/17 at 11:38; Stop 07/18/17 at 12:47; Status DC Lidocaine HCl (Lidocaine Pf 2% Vial) 5 ml STK-MED ONCE .ROUTE ; Start 07/18/17 at 11:38; Stop 07/18/17 at 12:47; Status DC Dexamethasone Sodium Phosphate (Decadron) 20 mg STK-MED ONCE .ROUTE ; Start at 11:38; Stop 07/18/17 at 12:47; Status DC Ondansetron HCl (Zofran) 4 mg STK-MED ONCE .ROUTE ; Start 07/18/17 at 11:38; Stop 07/18/17 at 12:48; Status DC Cefazolin Sodium 1 gm/Sodium Chloride 250 ml @ 250 mls/hr 1X PERIOP ONCE IRR ; Start 07/18/17 at 14:00; Stop 07/18/17 at 14:59; Status DC Vasopressin (Vasostrict) 20 unit STK-MED ONCE .ROUTE ; Start 07/18/17 at 14:27 ; Stop 07/18/17 at 14:28; Status DC Fentanyl Citrate (Fentanyl 2ml Vial) 100 mcg STK-MED ONCE .ROUTE ; Start at 14:42; Stop 07/18/17 at 14:43; Status DC Morphine Sulfate 2 mg PRN Q2HR PRN IV PAIN; Start 07/18/17 at 15:30 Sodium Chloride 1,000 ml @ 100 mls/hr Q10H PRN IV SEE COMMENTS; Start at 12:00 Multivitamins (Thera M Plus) 1 tab DAILY PO Last administered on 07/23/17 09: 36; Start 07/19/17 at 10:00 Ascorbic Acid (Vitamin C) 500 mg DAILY PO Last administered on 07/23/17 09:47 ; Start 07/19/17 at 10:00 Gabapentin (Neurontin) 300 mg TID PO Last administered on 07/23/17 13:42; Start 07/19/17 at 09:45 Acetaminophen/ Hydrocodone Bitart (Lortab 7.5/325) 1 tab PRN Q4HRS PRN PO PAIN ; Start 07/19/17 at 09:45 Metoprolol Tartrate (Lopressor) 25 mg BID PO Last administered on 07/23/17 09: 36; Start 07/21/17 at 21:00 Metoprolol Tartrate (Lopressor) 25 mg 1X ONCE PO ; Start 07/21/17 at 09:45; Stop 07/21/17 at 09:51; Status DC Active Scripts Active Flomax (Tamsulosin Hcl) 0.4 Mg Cap.er.24h 0.4 Mg PO QHS Reported Humalog (Insulin Lispro) 100 Unit/1 Ml Insuln.pen 7 Unit SQ TIDWMEALS Tylenol (Acetaminophen) 325 Mg Tablet 650 Mg PO PRN Q4HRS PRN Losartan Potassium 50 Mg Tablet 50 Mg PO QHS Lantus Solostar (Insulin Glargine,Hum.rec.anlog) 100 Unit/1 Ml Insuln.pen 19 Unit SQ QHS Colace (Docusate Sodium) 100 Mg Capsule 100 Mg PO DAILY Clopidogrel (Clopidogrel Bisulfate) 75 Mg Tablet 75 Mg PO DAILY Hydrocodone-Apap 5-325 (Hydrocodone Bit/Acetaminophen) 1 Each Tablet 1 Tab PO PRN Q6HRS PRN Vitals/I & O Vital Sign - Last 24 Hours 07/22/17 07/22/17 07/22/17 07/22/17 19:00 20:00 20:29 20:30 Temp 98.0 98.0 Pulse 89 89 89 Resp 17 B/P (MAP) 140/78 (98) 140/78 140/78 Pulse Ox 97 O2 Delivery Room Air Room Air 07/22/17 07/23/17 07/23/17 07/23/17 23:47 03:35 07:15 08:00 Temp 101.7 97.9 98.8 101.7 97.9 98.8 Pulse 82 77 76 Resp 17 20 20 B/P (MAP) 131/63 (85) 129/66 (87) 135/71 (92) Pulse Ox 95 98 99 O2 Delivery Room Air Room Air Room Air Room Air 07/23/17 07/23/17 09:36 11:27 Temp 98.8 98.8 Pulse 76 75 Resp 18 B/P (MAP) 135/71 127/66 (86) Pulse Ox 98 O2 Delivery Room Air Intake and Output 07/22/17 07/22/17 07/23/17 15:00 23:00 07:00 Intake Total 700 ml 570 ml Output Total 750 ml 450 ml 400 ml Balance -750 ml 250 ml 170 ml DOMENICA CHRISTIANSON MD Jul 23, 2017 15:07
[2017-07-23 15:26] VITALS: BP 126/65
--- NOTE | 2017-07-23 17:41 | RAD ---
BRAIN W/O CONTRAST Date: 07/23/2017 2:57 PM Indication: LEFT SIDED WEAKNESS, HX OF SEIZURES Comparison: CT head dated 07/22/2017, MRI brain dated 05/26/2017. Technique: Multiplanar multisequence MRI of the brain was performed without intravenous contrast using the standard protocol. Findings: Patient motion limits examination, particularly on the FLAIR imaging. Small acute infarct in the left posterior parietal lobe. Possible punctate infarct in the left superior cerebellar vermis. Moderate periventricular and deep white matter T2/FLAIR hyperattenuation's, nonspecific. No acute or chronic hemorrhage. Unchanged prominent ventricles. The scalp and calvarium are normal. The pituitary and sella are normal. No Chiari malformation. The visualized upper cervical spine is normal. The visualized orbits and globes are normal. Mild left greater than right maxillary and ethmoid sinus mucosal thickening. Left greater than right mastoid fluid. Normal flow voids within the vertebral, basilar, and internal carotid arteries indicating patency. IMPRESSION: 1. Small acute infarct in the left posterior parietal lobe. Associated T2/FLAIR hyperintensity indicating hours to days in age. 2. Possible punctate infarct in the left superior cerebellar vermis, but given the location, this could be artifactual. 3. Moderate periventricular and deep white matter T2/FLAIR hyperattenuation the are nonspecific but can be seen with chronic small vessel ischemic disease. 4. Mild maxillary and ethmoid sinus disease. 5. Left greater than right mastoid fluid which can be seen with mastoiditis. Clinical findings: These findings were discussed with patient's nurse, James, at 5:35 PM on 07/23/2017. Electronically signed by: Sebas Moreno MD (07/23/2017 5:38 PM) [place] [id number]
[2017-07-23] MEDS: ENOXAPARIN 40 MG/0.4 ML SYRINGE. SQ SCH (18:09)
[2017-07-23 19:00] VITALS: BP 134/67
[2017-07-23] MEDS: LOSARTAN POTASSIUM 50 MG TABLET. PO SCH (20:59)
[2017-07-23] MEDS: TAMSULOSIN 0.4 MG CAP.ER.24H. PO SCH (20:59)
[2017-07-23] MEDS: INSULIN DETEMIR 300 UNITS/3 ML INSULN.PEN. SQ SCH (21:00)
[2017-07-23 23:00] VITALS: BP 127/72
[2017-07-24] MEDS: PIPERACILLIN/TAZO IV Push 3.375 GM VIAL. IVP SCH ×4 (00:44→17:12)
[2017-07-24 03:00] VITALS: BP 129/63
[2017-07-24 07:00] VITALS: BP 113/61
[2017-07-24] MEDS: INSULIN ASPART 300 UNITS/3 ML INSULN.PEN SQ SCH ×6 (07:30→17:21)
[2017-07-24] MEDS: DOCUSATE SODIUM 100 MG CAPSULE. PO SCH (09:00)
[2017-07-24] MEDS: GABAPENTIN 300 MG CAPSULE. PO SCH ×3 (09:02→21:34)
[2017-07-24] MEDS: ASCORBIC ACID 500 MG TABLET PO SCH (09:02)
[2017-07-24] MEDS: METOPROLOL TART IMMED RELEASE 25 MG TABLET. PO SCH ×2 (09:03→21:34)
[2017-07-24] MEDS: CLOPIDOGREL BISULFATE 75 MG TABLET PO SCH (09:03)
[2017-07-24] MEDS: MULTIVITAMIN with MINERAL TABLET. PO SCH (09:03)
[2017-07-24] MEDS: LACTOBACILLUS RHAMNOSUS GG 1 CAPSULE. PO SCH ×2 (09:03→21:34)
--- NOTE | 2017-07-24 09:08 | PDOC ---
Provider Note Provider Note Vascular surgery follow-up: Patient sitting up eating breakfast. Flaccid left arm paralysis persists. Dressing and right above-knee amputation site is intact. Left knee is maintained in a flexed position to be manually straightened. Continue current management a knee immobilizer on the left may be beneficial to prevent additional skin breakdown of the knee And stump tip JODIE ANTHONY MD Jul 24, 2017 09:08
[2017-07-24 11:24] VITALS: BP 122/66
[2017-07-24] MEDS: ENOXAPARIN 40 MG/0.4 ML SYRINGE. SQ SCH (13:34)
--- NOTE | 2017-07-24 14:03 | PDOC ---
PROGRESS NOTES Chief Complaint Chief Complaint CVA - MRI showed Small acute infarct in the left posterior parietal lobe admit for LE cellulitis Diabetic foot ulcers, s/p bilat amputations 1. Cellulitis with diabetic ulcers R thigh/B stumps: s/p debridement 07/13. 2. DM2: HgbA1c 8.6. 3. PVD: s/p B BKA. 4. UTI: K.pneumoniae, pansensitive. 5. Anemia: of CKD 3 6. weakness and debility 7. htn, poor control 8. severe malnutrition History of Present Illness History of Present Illness anemia better left arm unable to move has worked with PT and OT , Poor healing previously cont IV zosyn s/p AKA doing well on gabapentin for nerve pain Vitals Vitals Vital Signs Date Time Temp Pulse Resp B/P (MAP) Pulse Ox O2 Delivery O2 Flow Rate FiO2 07/24/17 11:24 100.8 84 18 122/66 (84) 96 Room Air 100.8 07/23/17 23:00 98.0 Physical Exam General: Alert, Oriented X3, Cooperative, No acute distress Heart: Regular rate, No murmurs Lungs: Clear Abdomen: Soft, No tenderness Extremities: Other (right aka stump dressing dry; minimal drainage per DEWAYNE) Skin: No rashes, Other (bilat ulcers dressed) Labs LABS Laboratory Tests Test 07/23/17 16:24 07/24/17 07:21 07/24/17 11:41 Glucose (Fingerstick) 272 mg/dL (70-99) 71 mg/dL (70-99) 145 mg/dL (70-99) Assessment and Plan Assessmemt and Plan Problems Medical Problems: (1) Hyperglycemia Status: Acute Problems: Comment Review of Relevant I have reviewed the following items yobani (where applicable) has been applied. Labs Laboratory Tests Test 07/22/17 16:38 07/22/17 20:27 07/23/17 07:52 07/23/17 16:24 Glucose (Fingerstick) 186 mg/dL (70-99) 209 mg/dL (70-99) 235 mg/dL (70-99) 272 mg/dL (70-99) Test 07/24/17 07:21 07/24/17 11:41 Glucose (Fingerstick) 71 mg/dL (70-99) 145 mg/dL (70-99) Laboratory Tests Test 07/23/17 16:24 07/24/17 07:21 07/24/17 11:41 Glucose (Fingerstick) 272 mg/dL (70-99) 71 mg/dL (70-99) 145 mg/dL (70-99) Microbiology 07/15/17 Blood Culture - Final, Complete NO GROWTH AFTER 5 DAYS 07/11/17 Urine Culture - Final, Complete 07/11/17 Urine Culture Result 1 (CHICO) - Final, Complete 07/11/17 Antimicrobic Susceptibility - Final, Complete 07/14/17 Gram Stain - Final, Complete Medications Current Medications Sodium Chloride 1,000 ml @ 1,000 mls/hr 1X ONCE IV Last administered on 07/11 18:11; Start 07/11/17 at 18:00; Stop 07/11/17 at 18:59; Status DC Insulin Human Regular (NovoLIN R VIAL) 10 unit 1X ONCE IV Last administered on 07/11/17 18:56; Start 07/11/17 at 19:00; Stop 07/11/17 at 19:01; Status DC Acetaminophen (Tylenol) 650 mg PRN Q4HRS PRN PO MILD PAIN Last administered on 07/22/17 23:20; Start 07/12/17 at 13:00 Clopidogrel Bisulfate (Plavix) 75 mg DAILY PO Last administered on 07/24/17 09 :03; Start 07/12/17 at 14:00 Docusate Sodium (Colace) 100 mg DAILY PO Last administered on 07/23/17 09:36; Start 07/12/17 at 14:00 Acetaminophen/ Hydrocodone Bitart (Lortab 5/325) 1 tab PRN Q6HRS PRN PO MODERATE PAIN; Start 07/12/17 at 13:00 Losartan Potassium (Cozaar) 50 mg QHS PO Last administered on 07/23/17 20:59; Start 07/12/17 at 21:00 Tamsulosin HCl (Flomax) 0.4 mg QHS PO Last administered on 07/23/17 20:59; Start 07/12/17 at 21:00 Insulin Detemir (Levemir) 19 units QHS SQ Last administered on 07/13/17 21:22 ; Start 07/12/17 at 21:00; Stop 07/14/17 at 12:26; Status DC Insulin Aspart (NovoLOG) 7 units TIDAC SQ Last administered on 07/23/17 13:57 ; Start 07/12/17 at 16:30; Stop 07/23/17 at 15:06; Status DC Piperacillin Sod/ Tazobactam Sod 3.375 gm/Dextrose 50 ml @ 100 mls/hr Q6HRS IV ; Start 07/12/17 at 16:00; Status Cancel Piperacillin Sod/ Tazobactam Sod (Zosyn) 3.375 gm Q6HRS IVP Last administered on 07/24/17 12:54; Start 07/12/17 at 16:00 Enoxaparin Sodium (Lovenox 40mg Syringe) 40 mg Q24H SQ Last administered on 13:34; Start 07/13/17 at 15:00 Insulin Detemir (Levemir) 22 units QHS SQ Last administered on 07/22/17 20:37 ; Start 07/14/17 at 21:00; Stop 07/23/17 at 15:06; Status DC Lactobacillus Rhamnosus (Culturelle) 1 cap BID PO Last administered on 09:03; Start 07/14/17 at 21:00 Sodium Chloride 500 ml @ 500 mls/hr 1X ONCE IV Last administered on 09:09; Start 07/15/17 at 09:00; Stop 07/15/17 at 09:59; Status DC Ceftriaxone Sodium 1 gm/ Dextrose 50 ml @ 100 mls/hr Q24H IV ; Start 07/16/17 at 12:45; Status UNV Ondansetron HCl (Zofran) 4 mg PRN Q6HRS PRN IV NAUSEA/VOMITING; Start at 12:45 Acetaminophen (Tylenol) 650 mg PRN Q6HRS PRN PO pain; Start 07/16/17 at 12:45 ; Status UNV Insulin Aspart (NovoLOG) 0-9 UNITS TIDWMEALS SQ Last administered on 07/23/17 18:19; Start 07/16/17 at 17:00 Dextrose (Dextrose 50%-Water Syringe) 12.5 gm PRN Q15MIN PRN IV SEE COMMENTS; Start 07/16/17 at 12:45 Oxycodone/ Acetaminophen (Percocet 5/325) 1 tab PRN Q4HRS PRN PO PAIN; Start 07/16/17 at 12:45; Stop 07/19/17 at 09:35; Status DC Ceftriaxone Sodium (Rocephin) 1 gm Q24H IVP Last administered on 07/16/17t 13: 52; Start 07/16/17 at 13:00; Stop 07/16/17 at 14:30; Status DC Piperacillin Sod/ Tazobactam Sod (Zosyn Per Pharmacy) 1 each PRN DAILY PRN MC SEE COMMENTS; Start 07/16/17 at 14:30; Stop 07/18/17 at 15:44; Status DC Ondansetron HCl (Zofran) 4 mg PRN Q6HRS PRN IV NAUSEA/VOMITING; Start at 07:45; Stop 07/19/17 at 07:44; Status DC Fentanyl Citrate (Fentanyl 2ml Vial) 25 mcg PRN Q5MIN PRN IV MILD PAIN; Start 07/18/17 at 07:45; Stop 07/19/17 at 07:44; Status DC Fentanyl Citrate (Fentanyl 2ml Vial) 50 mcg PRN Q5MIN PRN IV MODERATE PAIN; Start 07/18/17 at 07:45; Stop 07/19/17 at 07:44; Status DC Morphine Sulfate 1 mg PRN Q10MIN PRN IV SEVERE PAIN; Start 07/18/17 at 07:45; Stop 07/19/17 at 07:44; Status DC Ringer's Solution 1,000 ml @ 30 mls/hr Q24H IV ; Start 07/18/17 at 07:43; Stop 07/18/17 at 19:42; Status DC Lidocaine HCl (Xylocaine-Mpf 1% Vial) 2 ml 1X PRN PRN ID IV START; Start 07/18 at 07:45; Stop 07/19/17 at 07:44; Status DC Hydromorphone HCl (Dilaudid) 0.5 mg PRN Q10MIN PRN IV SEV PAIN, Second choice; Start 07/18/17 at 07:45; Stop 07/19/17 at 07:44; Status DC Prochlorperazine Edisylate (Compazine) 5 mg PACU PRN PRN IV NAUSEA, MRX1; Start 07/18/17 at 07:45; Stop 07/19/17 at 07:44; Status DC Sevoflurane (Ultane) 90 ml STK-MED ONCE IH ; Start 07/18/17 at 11:37; Stop at 12:47; Status DC Neostigmine Methylsulfate (Bloxiverz) 10 mg STK-MED ONCE .ROUTE ; Start at 11:37; Stop 07/18/17 at 12:47; Status DC Midazolam HCl (Versed) 2 mg STK-MED ONCE .ROUTE ; Start 07/18/17 at 11:38; Stop 07/18/17 at 12:47; Status DC Fentanyl Citrate (Fentanyl 2ml Vial) 100 mcg STK-MED ONCE .ROUTE ; Start at 11:38; Stop 07/18/17 at 12:47; Status DC Glycopyrrolate (Robinul) 1 mg STK-MED ONCE .ROUTE ; Start 07/18/17 at 11:38; Stop 07/18/17 at 12:47; Status DC Rocuronium [place] (Zemuron) 50 mg STK-MED ONCE .ROUTE ; Start 07/18/17 at 11: 38; Stop 07/18/17 at 12:47; Status DC Propofol 20 ml @ As Directed STK-MED ONCE IV ; Start 07/18/17 at 11:38; Stop 07/18/17 at 12:47; Status DC Lidocaine HCl (Lidocaine Pf 2% Vial) 5 ml STK-MED ONCE .ROUTE ; Start 07/18/17 at 11:38; Stop 07/18/17 at 12:47; Status DC Dexamethasone Sodium Phosphate (Decadron) 20 mg STK-MED ONCE .ROUTE ; Start at 11:38; Stop 07/18/17 at 12:47; Status DC Ondansetron HCl (Zofran) 4 mg STK-MED ONCE .ROUTE ; Start 07/18/17 at 11:38; Stop 07/18/17 at 12:48; Status DC Cefazolin Sodium 1 gm/Sodium Chloride 250 ml @ 250 mls/hr 1X PERIOP ONCE IRR ; Start 07/18/17 at 14:00; Stop 07/18/17 at 14:59; Status DC Vasopressin (Vasostrict) 20 unit STK-MED ONCE .ROUTE ; Start 07/18/17 at 14:27 ; Stop 07/18/17 at 14:28; Status DC Fentanyl Citrate (Fentanyl 2ml Vial) 100 mcg STK-MED ONCE .ROUTE ; Start at 14:42; Stop 07/18/17 at 14:43; Status DC Morphine Sulfate 2 mg PRN Q2HR PRN IV PAIN; Start 07/18/17 at 15:30 Sodium Chloride 1,000 ml @ 100 mls/hr Q10H PRN IV SEE COMMENTS; Start at 12:00 Multivitamins (Thera M Plus) 1 tab DAILY PO Last administered on 07/24/17 09: 03; Start 07/19/17 at 10:00 Ascorbic Acid (Vitamin C) 500 mg DAILY PO Last administered on 07/24/17 09:02 ; Start 07/19/17 at 10:00 Gabapentin (Neurontin) 300 mg TID PO Last administered on 07/24/17 13:34; Start 07/19/17 at 09:45 Acetaminophen/ Hydrocodone Bitart (Lortab 7.5/325) 1 tab PRN Q4HRS PRN PO PAIN ; Start 07/19/17 at 09:45 Metoprolol Tartrate (Lopressor) 25 mg BID PO Last administered on 07/24/17 09: 03; Start 07/21/17 at 21:00 Metoprolol Tartrate (Lopressor) 25 mg 1X ONCE PO ; Start 07/21/17 at 09:45; Stop 07/21/17 at 09:51; Status DC Insulin Aspart (NovoLOG) 10 units TIDAC SQ Last administered on 07/24/17 13:02 ; Start 07/23/17 at 16:30 Insulin Detemir (Levemir) 26 units QHS SQ Last administered on 07/23/17 21:00 ; Start 07/23/17 at 21:00 Active Scripts Active Flomax (Tamsulosin Hcl) 0.4 Mg Cap.er.24h 0.4 Mg PO QHS Reported Humalog (Insulin Lispro) 100 Unit/1 Ml Insuln.pen 7 Unit SQ TIDWMEALS Tylenol (Acetaminophen) 325 Mg Tablet 650 Mg PO PRN Q4HRS PRN Losartan Potassium 50 Mg Tablet 50 Mg PO QHS Lantus Solostar (Insulin Glargine,Hum.rec.anlog) 100 Unit/1 Ml Insuln.pen 19 Unit SQ QHS Colace (Docusate Sodium) 100 Mg Capsule 100 Mg PO DAILY Clopidogrel (Clopidogrel Bisulfate) 75 Mg Tablet 75 Mg PO DAILY Hydrocodone-Apap 5-325 (Hydrocodone Bit/Acetaminophen) 1 Each Tablet 1 Tab PO PRN Q6HRS PRN Vitals/I & O Vital Sign - Last 24 Hours 07/23/17 07/23/17 07/23/17 07/23/17 15:26 19:00 20:00 20:59 Temp 97.9 99.3 97.9 99.3 Pulse 77 82 82 Resp 18 18 B/P (MAP) 126/65 (85) 134/67 (89) 134/67 Pulse Ox 98 98 O2 Delivery Room Air Room Air Room Air 07/23/17 07/23/17 07/24/17 07/24/17 21:00 23:00 03:00 07:00 Temp 99.3 100.8 98.8 99.3 100.8 98.8 Pulse 82 77 79 80 Resp 18 18 18 B/P (MAP) 134/67 127/72 (90) 129/63 (85) 113/61 (78) Pulse Ox 95 96 O2 Delivery Room Air Room Air Room Air O2 Flow Rate 98.0 07/24/17 07/24/17 07/24/17 08:15 09:03 11:24 Temp 100.8 100.8 Pulse 80 84 Resp 18 B/P (MAP) 113/61 122/66 (84) Pulse Ox 96 O2 Delivery Room Air Room Air Intake and Output 07/23/17 07/23/17 07/24/17 15:00 23:00 07:00 Intake Total 700 ml 750 ml Output Total 750 ml 1150 ml Balance -50 ml -400 ml DOMENICA CHRISTIANSON MD Jul 24, 2017 14:03
[2017-07-24 14:53] VITALS: BP 113/66
--- NOTE | 2017-07-24 16:40 | PDOC ---
PROGRESS NOTES Assessment 1. Left arm paralysis within the last week. I reviewed the MRI of the brain at length. This revealed a very small stroke in the left posterior parietal region which would not account for left arm weakness. It's possible the issue was in the cervical spine or peripheral. The may be a brachial plexopathy. He has a great deal of swelling in the arm without evidence of a deep venous thrombosis. There is no tenderness to palpation of the shoulder or arm. I do not feel any swelling that could be compressing the brachial plexus. 2. Cellulitis with diabetic ulcers in the stumps. Status post debridement July 13. 3. Diabetes, not well controlled. 4. Peripheral vascular disease 5. Urinary tract infection 6. Malnutrition Plan 1. I will proceed with a cervical MRI to exclude a cervical spine lesion. He states he cannot move his left leg as well although the duration of that is longer. If the MRI cervical is negative than this would have to be a peripheral process. Subjective I have not been able to move my left leg for a long time. My right arm is weak but has been weak for a long time. I cannot move my left arm. It hurts when you move the joints. Objective Vital Signs Date Time Temp Pulse Resp B/P (MAP) Pulse Ox O2 Delivery O2 Flow Rate FiO2 07/24/17 14:53 98.9 81 18 113/66 (82) 97 Room Air 98.9 07/23/17 23:00 98.0 Intake and Output 07/24/17 07:00 Intake Total 1450 ml Output Total 1900 ml Balance -450 ml Intake Oral 1450 ml Output Urine Total 1900 ml # Voids 1 PHYSICAL EXAM He was initially sleeping but alerted easily. He was able to stay awake and interact with the examiner. He answered questions appropriately and followed commands. The eyes were conjugate and face symmetric. Facial sensation was intact. He had no movement of the left arm. The left arm continued to appear swollen. Palpation of the upper chest, shoulder and arm did not reveal any fullness or apparent lesion. He had no movement of the left leg. He could move the right leg a trace and the right arm 4/5. He did not have the strength to touch his nose with finger of his right hand. He felt numbness to light touch of the left arm and leg. He perceives sensation on the right. Review of Relevant I have reviewed the following items yobani (where applicable) has been applied. Labs Laboratory Tests Test 07/22/17 20:27 07/23/17 07:52 07/23/17 16:24 07/24/17 07:21 Glucose (Fingerstick) 209 mg/dL (70-99) 235 mg/dL (70-99) 272 mg/dL (70-99) 71 mg/dL (70-99) Test 07/24/17 11:41 Glucose (Fingerstick) 145 mg/dL (70-99) Laboratory Tests Test 07/24/17 07:21 07/24/17 11:41 Glucose (Fingerstick) 71 mg/dL (70-99) 145 mg/dL (70-99) Microbiology 07/15/17 Blood Culture - Final, Complete NO GROWTH AFTER 5 DAYS 07/11/17 Urine Culture - Final, Complete 07/11/17 Urine Culture Result 1 (CHICO) - Final, Complete 07/11/17 Antimicrobic Susceptibility - Final, Complete 07/14/17 Gram Stain - Final, Complete Medications Current Medications Sodium Chloride 1,000 ml @ 1,000 mls/hr 1X ONCE IV Last administered on 07/11 18:11; Start 07/11/17 at 18:00; Stop 07/11/17 at 18:59; Status DC Insulin Human Regular (NovoLIN R VIAL) 10 unit 1X ONCE IV Last administered on 07/11/17 18:56; Start 07/11/17 at 19:00; Stop 07/11/17 at 19:01; Status DC Acetaminophen (Tylenol) 650 mg PRN Q4HRS PRN PO MILD PAIN Last administered on 07/22/17 23:20; Start 07/12/17 at 13:00 Clopidogrel Bisulfate (Plavix) 75 mg DAILY PO Last administered on 07/24/17 09 :03; Start 07/12/17 at 14:00 Docusate Sodium (Colace) 100 mg DAILY PO Last administered on 07/23/17 09:36; Start 07/12/17 at 14:00 Acetaminophen/ Hydrocodone Bitart (Lortab 5/325) 1 tab PRN Q6HRS PRN PO MODERATE PAIN; Start 07/12/17 at 13:00 Losartan Potassium (Cozaar) 50 mg QHS PO Last administered on 07/23/17 20:59; Start 07/12/17 at 21:00 Tamsulosin HCl (Flomax) 0.4 mg QHS PO Last administered on 07/23/17 20:59; Start 07/12/17 at 21:00 Insulin Detemir (Levemir) 19 units QHS SQ Last administered on 07/13/17 21:22 ; Start 07/12/17 at 21:00; Stop 07/14/17 at 12:26; Status DC Insulin Aspart (NovoLOG) 7 units TIDAC SQ Last administered on 07/23/17 13:57 ; Start 07/12/17 at 16:30; Stop 07/23/17 at 15:06; Status DC Piperacillin Sod/ Tazobactam Sod 3.375 gm/Dextrose 50 ml @ 100 mls/hr Q6HRS IV ; Start 07/12/17 at 16:00; Status Cancel Piperacillin Sod/ Tazobactam Sod (Zosyn) 3.375 gm Q6HRS IVP Last administered on 07/24/17 12:54; Start 07/12/17 at 16:00 Enoxaparin Sodium (Lovenox 40mg Syringe) 40 mg Q24H SQ Last administered on 13:34; Start 07/13/17 at 15:00 Insulin Detemir (Levemir) 22 units QHS SQ Last administered on 07/22/17 20:37 ; Start 07/14/17 at 21:00; Stop 07/23/17 at 15:06; Status DC Lactobacillus Rhamnosus (Culturelle) 1 cap BID PO Last administered on 09:03; Start 07/14/17 at 21:00 Sodium Chloride 500 ml @ 500 mls/hr 1X ONCE IV Last administered on 09:09; Start 07/15/17 at 09:00; Stop 07/15/17 at 09:59; Status DC Ceftriaxone Sodium 1 gm/ Dextrose 50 ml @ 100 mls/hr Q24H IV ; Start 07/16/17 at 12:45; Status UNV Ondansetron HCl (Zofran) 4 mg PRN Q6HRS PRN IV NAUSEA/VOMITING; Start at 12:45 Acetaminophen (Tylenol) 650 mg PRN Q6HRS PRN PO pain; Start 07/16/17 at 12:45 ; Status UNV Insulin Aspart (NovoLOG) 0-9 UNITS TIDWMEALS SQ Last administered on 07/23/17t 18:19; Start 07/16/17 at 17:00 Dextrose (Dextrose 50%-Water Syringe) 12.5 gm PRN Q15MIN PRN IV SEE COMMENTS; Start 07/16/17 at 12:45 Oxycodone/ Acetaminophen (Percocet 5/325) 1 tab PRN Q4HRS PRN PO PAIN; Start 07/16/17 at 12:45; Stop 07/19/17 at 09:35; Status DC Ceftriaxone Sodium (Rocephin) 1 gm Q24H IVP Last administered on 07/16/17 13: 52; Start 07/16/17 at 13:00; Stop 07/16/17 at 14:30; Status DC Piperacillin Sod/ Tazobactam Sod (Zosyn Per Pharmacy) 1 each PRN DAILY PRN [facility] SEE COMMENTS; Start 07/16/17 at 14:30; Stop 07/18/17 at 15:44; Status DC Ondansetron HCl (Zofran) 4 mg PRN Q6HRS PRN IV NAUSEA/VOMITING; Start at 07:45; Stop 07/19/17 at 07:44; Status DC Fentanyl Citrate (Fentanyl 2ml Vial) 25 mcg PRN Q5MIN PRN IV MILD PAIN; Start 07/18/17 at 07:45; Stop 07/19/17 at 07:44; Status DC Fentanyl Citrate (Fentanyl 2ml Vial) 50 mcg PRN Q5MIN PRN IV MODERATE PAIN; Start 07/18/17 at 07:45; Stop 07/19/17 at 07:44; Status DC Morphine Sulfate 1 mg PRN Q10MIN PRN IV SEVERE PAIN; Start 07/18/17 at 07:45; Stop 07/19/17 at 07:44; Status DC Ringer's Solution 1,000 ml @ 30 mls/hr Q24H IV ; Start 07/18/17 at 07:43; Stop 07/18/17 at 19:42; Status DC Lidocaine HCl (Xylocaine-Mpf 1% Vial) 2 ml 1X PRN PRN ID IV START; Start 07/18 at 07:45; Stop 07/19/17 at 07:44; Status DC Hydromorphone HCl (Dilaudid) 0.5 mg PRN Q10MIN PRN IV SEV PAIN, Second choice; Start 07/18/17 at 07:45; Stop 07/19/17 at 07:44; Status DC Prochlorperazine Edisylate (Compazine) 5 mg PACU PRN PRN IV NAUSEA, MRX1; Start 07/18/17 at 07:45; Stop 07/19/17 at 07:44; Status DC Sevoflurane (Ultane) 90 ml STK-MED ONCE IH ; Start 07/18/17 at 11:37; Stop at 12:47; Status DC Neostigmine Methylsulfate (Bloxiverz) 10 mg STK-MED ONCE .ROUTE ; Start at 11:37; Stop 07/18/17 at 12:47; Status DC Midazolam HCl (Versed) 2 mg STK-MED ONCE .ROUTE ; Start 07/18/17 at 11:38; Stop 07/18/17 at 12:47; Status DC Fentanyl Citrate (Fentanyl 2ml Vial) 100 mcg STK-MED ONCE .ROUTE ; Start at 11:38; Stop 07/18/17 at 12:47; Status DC Glycopyrrolate (Robinul) 1 mg STK-MED ONCE .ROUTE ; Start 07/18/17 at 11:38; Stop 07/18/17 at 12:47; Status DC Rocuronium Lorimor (Zemuron) 50 mg STK-MED ONCE .ROUTE ; Start 07/18/17 at 11: 38; Stop 07/18/17 at 12:47; Status DC Propofol 20 ml @ As Directed STK-MED ONCE IV ; Start 07/18/17 at 11:38; Stop 07/18/17 at 12:47; Status DC Lidocaine HCl (Lidocaine Pf 2% Vial) 5 ml STK-MED ONCE .ROUTE ; Start 07/18/17 at 11:38; Stop 07/18/17 at 12:47; Status DC Dexamethasone Sodium Phosphate (Decadron) 20 mg STK-MED ONCE .ROUTE ; Start at 11:38; Stop 07/18/17 at 12:47; Status DC Ondansetron HCl (Zofran) 4 mg STK-MED ONCE .ROUTE ; Start 07/18/17 at 11:38; Stop 07/18/17 at 12:48; Status DC Cefazolin Sodium 1 gm/Sodium Chloride 250 ml @ 250 mls/hr 1X PERIOP ONCE IRR ; Start 07/18/17 at 14:00; Stop 07/18/17 at 14:59; Status DC Vasopressin (Vasostrict) 20 unit STK-MED ONCE .ROUTE ; Start 07/18/17 at 14:27 ; Stop 07/18/17 at 14:28; Status DC Fentanyl Citrate (Fentanyl 2ml Vial) 100 mcg STK-MED ONCE .ROUTE ; Start at 14:42; Stop 07/18/17 at 14:43; Status DC Morphine Sulfate 2 mg PRN Q2HR PRN IV PAIN; Start 07/18/17 at 15:30 Sodium Chloride 1,000 ml @ 100 mls/hr Q10H PRN IV SEE COMMENTS; Start at 12:00 Multivitamins (Thera M Plus) 1 tab DAILY PO Last administered on 07/24/17 09: 03; Start 07/19/17 at 10:00 Ascorbic Acid (Vitamin C) 500 mg DAILY PO Last administered on 07/24/17 09:02 ; Start 07/19/17 at 10:00 Gabapentin (Neurontin) 300 mg TID PO Last administered on 07/24/17 13:34; Start 07/19/17 at 09:45 Acetaminophen/ Hydrocodone Bitart (Lortab 7.5/325) 1 tab PRN Q4HRS PRN PO PAIN ; Start 07/19/17 at 09:45 Metoprolol Tartrate (Lopressor) 25 mg BID PO Last administered on 07/24/17 09: 03; Start 07/21/17 at 21:00 Metoprolol Tartrate (Lopressor) 25 mg 1X ONCE PO ; Start 07/21/17 at 09:45; Stop 07/21/17 at 09:51; Status DC Insulin Aspart (NovoLOG) 10 units TIDAC SQ Last administered on 07/24/17 13:02 ; Start 07/23/17 at 16:30 Insulin Detemir (Levemir) 26 units QHS SQ Last administered on 07/23/17 21:00 ; Start 07/23/17 at 21:00 Active Scripts Active Flomax (Tamsulosin Hcl) 0.4 Mg Cap.er.24h 0.4 Mg PO QHS Reported Humalog (Insulin Lispro) 100 Unit/1 Ml Insuln.pen 7 Unit SQ TIDWMEALS Tylenol (Acetaminophen) 325 Mg Tablet 650 Mg PO PRN Q4HRS PRN Losartan Potassium 50 Mg Tablet 50 Mg PO QHS Lantus Solostar (Insulin Glargine,Hum.rec.anlog) 100 Unit/1 Ml Insuln.pen 19 Unit SQ QHS Colace (Docusate Sodium) 100 Mg Capsule 100 Mg PO DAILY Clopidogrel (Clopidogrel Bisulfate) 75 Mg Tablet 75 Mg PO DAILY Hydrocodone-Apap 5-325 (Hydrocodone Bit/Acetaminophen) 1 Each Tablet 1 Tab PO PRN Q6HRS PRN Vitals/I & O Vital Sign - Last 24 Hours 07/23/17 07/23/17 07/23/17 07/23/17 19:00 20:00 20:59 21:00 Temp 99.3 99.3 Pulse 82 82 82 Resp 18 B/P (MAP) 134/67 (89) 134/67 134/67 Pulse Ox 98 O2 Delivery Room Air Room Air 07/23/17 07/24/17 07/24/17 07/24/17 23:00 03:00 07:00 08:15 Temp 99.3 100.8 98.8 99.3 100.8 98.8 Pulse 77 79 80 Resp 18 18 18 B/P (MAP) 127/72 (90) 129/63 (85) 113/61 (78) Pulse Ox 95 96 O2 Delivery Room Air Room Air Room Air Room Air O2 Flow Rate 98.0 07/24/17 07/24/17 07/24/17 09:03 11:24 14:53 Temp 100.8 98.9 100.8 98.9 Pulse 80 84 81 Resp 18 18 B/P (MAP) 113/61 122/66 (84) 113/66 (82) Pulse Ox 96 97 O2 Delivery Room Air Room Air Intake and Output 07/23/17 07/23/17 07/24/17 15:00 23:00 07:00 Intake Total 700 ml 750 ml Output Total 750 ml 1150 ml Balance -50 ml -400 ml GUILLE HUNT MD Jul 24, 2017 16:40
[2017-07-24 19:00] VITALS: BP 135/72
[2017-07-24] MEDS: TAMSULOSIN 0.4 MG CAP.ER.24H. PO SCH (21:34)
[2017-07-24] MEDS: LOSARTAN POTASSIUM 50 MG TABLET. PO SCH (21:35)
[2017-07-24] MEDS: INSULIN DETEMIR 300 UNITS/3 ML INSULN.PEN. SQ SCH (21:45)
[2017-07-24 23:41] VITALS: BP 141/78
[2017-07-25] VITALS (7 sets, daily range): BP systolic 117–144; BP diastolic 65–78
[2017-07-25] MEDS: PIPERACILLIN/TAZO IV Push 3.375 GM VIAL. IVP SCH ×4 (00:48→17:37)
[2017-07-25] MEDS: INSULIN ASPART 300 UNITS/3 ML INSULN.PEN SQ SCH ×6 (08:00→17:45)
[2017-07-25] MEDS: ASCORBIC ACID 500 MG TABLET PO SCH (08:11)
[2017-07-25] MEDS: MULTIVITAMIN with MINERAL TABLET. PO SCH (08:11)
[2017-07-25] MEDS: GABAPENTIN 300 MG CAPSULE. PO SCH ×3 (08:12→20:18)
[2017-07-25] MEDS: CLOPIDOGREL BISULFATE 75 MG TABLET PO SCH (08:12)
[2017-07-25] MEDS: LACTOBACILLUS RHAMNOSUS GG 1 CAPSULE. PO SCH ×2 (08:12→20:18)
[2017-07-25] MEDS: DOCUSATE SODIUM 100 MG CAPSULE. PO SCH (08:12)
[2017-07-25] MEDS: METOPROLOL TART IMMED RELEASE 25 MG TABLET. PO SCH ×2 (08:13→20:19)
--- NOTE | 2017-07-25 10:15 | PDOC ---
PROGRESS NOTES Assessment Problems Medical Problems: (1) Hyperglycemia Status: Acute Left arm monoparesis, most likely due to brachial plexopathy But he also had a right parietal stroke, unlikely to cause paralysis of the whole left arm. Rule out cervical spine pathology Diabetes with neuropathy Peripheral vascular disease Plan Await MRI cervical spine Rehabilitation modalities Subjective Complains of whole-body pain Objective Vital Signs Date Time Temp Pulse Resp B/P (MAP) Pulse Ox O2 Delivery O2 Flow Rate FiO2 07/25/17 08:13 73 142/77 07/25/17 07:00 100.9 18 Room Air 100.9 07/25/17 03:31 98 Intake and Output 07/25/17 07:00 Intake Total 1691 ml Output Total 1925 ml Balance -234 ml Intake Oral 1691 ml Output Urine Total 1925 ml # Bowel Movements 2 PHYSICAL EXAM Alert. Oriented to time, place and person. PERRL. EOMI. CN: no focal findings. Muscle tone: normal. Muscle strength: 0/5 left arm, 3/5 right arm, hesitates to move legs, but is able to move both, weaker on the left, though DTR: 1+ Plantar reflex: N/A Gait: not examined in bed. Sensory exam: no abnormal findings. No cerebellar signs elicited. Review of Relevant I have reviewed the following items yobani (where applicable) has been applied. Labs Laboratory Tests Test 07/23/17 12:08 07/23/17 16:24 07/23/17 20:00 07/24/17 07:21 Glucose (Fingerstick) 280 mg/dL (70-99) 272 mg/dL (70-99) 202 mg/dL (70-99) 71 mg/dL (70-99) Test 07/24/17 11:41 07/24/17 16:38 07/24/17 19:25 07/25/17 07:29 Glucose (Fingerstick) 145 mg/dL (70-99) 202 mg/dL (70-99) 196 mg/dL (70-99) 147 mg/dL (70-99) Laboratory Tests Test 07/24/17 11:41 07/24/17 16:38 07/24/17 19:25 07/25/17 07:29 Glucose (Fingerstick) 145 mg/dL (70-99) 202 mg/dL (70-99) 196 mg/dL (70-99) 147 mg/dL (70-99) Microbiology 07/15/17 Blood Culture - Final, Complete NO GROWTH AFTER 5 DAYS 07/11/17 Urine Culture - Final, Complete 07/11/17 Urine Culture Result 1 ([facility]) - Final, Complete 07/11/17 Antimicrobic Susceptibility - Final, Complete 07/14/17 Gram Stain - Final, Complete Medications Current Medications Sodium Chloride 1,000 ml @ 1,000 mls/hr 1X ONCE IV Last administered on 07/11 18:11; Start 07/11/17 at 18:00; Stop 07/11/17 at 18:59; Status DC Insulin Human Regular (NovoLIN R VIAL) 10 unit 1X ONCE IV Last administered on 07/11/17 18:56; Start 07/11/17 at 19:00; Stop 07/11/17 at 19:01; Status DC Acetaminophen (Tylenol) 650 mg PRN Q4HRS PRN PO MILD PAIN Last administered on 07/22/17 23:20; Start 07/12/17 at 13:00 Clopidogrel Bisulfate (Plavix) 75 mg DAILY PO Last administered on 07/25/17 08 :12; Start 07/12/17 at 14:00 Docusate Sodium (Colace) 100 mg DAILY PO Last administered on 07/25/17 08:12; Start 07/12/17 at 14:00 Acetaminophen/ Hydrocodone Bitart (Lortab 5/325) 1 tab PRN Q6HRS PRN PO MODERATE PAIN; Start 07/12/17 at 13:00 Losartan Potassium (Cozaar) 50 mg QHS PO Last administered on 07/24/17 21:35; Start 07/12/17 at 21:00 Tamsulosin HCl (Flomax) 0.4 mg QHS PO Last administered on 07/24/17 21:34; Start 07/12/17 at 21:00 Insulin Detemir (Levemir) 19 units QHS SQ Last administered on 07/13/17 21:22 ; Start 07/12/17 at 21:00; Stop 07/14/17 at 12:26; Status DC Insulin Aspart (NovoLOG) 7 units TIDAC SQ Last administered on 07/23/17 13:57 ; Start 07/12/17 at 16:30; Stop 07/23/17 at 15:06; Status DC Piperacillin Sod/ Tazobactam Sod 3.375 gm/Dextrose 50 ml @ 100 mls/hr Q6HRS IV ; Start 07/12/17 at 16:00; Status Cancel Piperacillin Sod/ Tazobactam Sod (Zosyn) 3.375 gm Q6HRS IVP Last administered on 07/25/17 05:55; Start 07/12/17 at 16:00 Enoxaparin Sodium (Lovenox 40mg Syringe) 40 mg Q24H SQ Last administered on 13:34; Start 07/13/17 at 15:00 Insulin Detemir (Levemir) 22 units QHS SQ Last administered on 07/22/17 20:37 ; Start 07/14/17 at 21:00; Stop 07/23/17 at 15:06; Status DC Lactobacillus Rhamnosus (Culturelle) 1 cap BID PO Last administered on 08:12; Start 07/14/17 at 21:00 Sodium Chloride 500 ml @ 500 mls/hr 1X ONCE IV Last administered on 09:09; Start 07/15/17 at 09:00; Stop 07/15/17 at 09:59; Status DC Ceftriaxone Sodium 1 gm/ Dextrose 50 ml @ 100 mls/hr Q24H IV ; Start 07/16/17 at 12:45; Status UNV Ondansetron HCl (Zofran) 4 mg PRN Q6HRS PRN IV NAUSEA/VOMITING; Start at 12:45 Acetaminophen (Tylenol) 650 mg PRN Q6HRS PRN PO pain; Start 07/16/17 at 12:45 ; Status UNV Insulin Aspart (NovoLOG) 0-9 UNITS TIDWMEALS SQ Last administered on 07/24/17 17:20; Start 07/16/17 at 17:00 Dextrose (Dextrose 50%-Water Syringe) 12.5 gm PRN Q15MIN PRN IV SEE COMMENTS; Start 07/16/17 at 12:45 Oxycodone/ Acetaminophen (Percocet 5/325) 1 tab PRN Q4HRS PRN PO PAIN; Start 07/16/17 at 12:45; Stop 07/19/17 at 09:35; Status DC Ceftriaxone Sodium (Rocephin) 1 gm Q24H IVP Last administered on 07/16/17t 13: 52; Start 07/16/17 at 13:00; Stop 07/16/17 at 14:30; Status DC Piperacillin Sod/ Tazobactam Sod (Zosyn Per Pharmacy) 1 each PRN DAILY PRN [facility] SEE COMMENTS; Start 07/16/17 at 14:30; Stop 07/18/17 at 15:44; Status DC Ondansetron HCl (Zofran) 4 mg PRN Q6HRS PRN IV NAUSEA/VOMITING; Start at 07:45; Stop 07/19/17 at 07:44; Status DC Fentanyl Citrate (Fentanyl 2ml Vial) 25 mcg PRN Q5MIN PRN IV MILD PAIN; Start 07/18/17 at 07:45; Stop 07/19/17 at 07:44; Status DC Fentanyl Citrate (Fentanyl 2ml Vial) 50 mcg PRN Q5MIN PRN IV MODERATE PAIN; Start 07/18/17 at 07:45; Stop 07/19/17 at 07:44; Status DC Morphine Sulfate 1 mg PRN Q10MIN PRN IV SEVERE PAIN; Start 07/18/17 at 07:45; Stop 07/19/17 at 07:44; Status DC Ringer's Solution 1,000 ml @ 30 mls/hr Q24H IV ; Start 07/18/17 at 07:43; Stop 07/18/17 at 19:42; Status DC Lidocaine HCl (Xylocaine-Mpf 1% Vial) 2 ml 1X PRN PRN ID IV START; Start 07/18 at 07:45; Stop 07/19/17 at 07:44; Status DC Hydromorphone HCl (Dilaudid) 0.5 mg PRN Q10MIN PRN IV SEV PAIN, Second choice; Start 07/18/17 at 07:45; Stop 07/19/17 at 07:44; Status DC Prochlorperazine Edisylate (Compazine) 5 mg PACU PRN PRN IV NAUSEA, MRX1; Start 07/18/17 at 07:45; Stop 07/19/17 at 07:44; Status DC Sevoflurane (Ultane) 90 ml STK-MED ONCE IH ; Start 07/18/17 at 11:37; Stop at 12:47; Status DC Neostigmine Methylsulfate (Bloxiverz) 10 mg STK-MED ONCE .ROUTE ; Start at 11:37; Stop 07/18/17 at 12:47; Status DC Midazolam HCl (Versed) 2 mg STK-MED ONCE .ROUTE ; Start 07/18/17 at 11:38; Stop 07/18/17 at 12:47; Status DC Fentanyl Citrate (Fentanyl 2ml Vial) 100 mcg STK-MED ONCE .ROUTE ; Start at 11:38; Stop 07/18/17 at 12:47; Status DC Glycopyrrolate (Robinul) 1 mg STK-MED ONCE .ROUTE ; Start 07/18/17 at 11:38; Stop 07/18/17 at 12:47; Status DC Rocuronium Golden (Zemuron) 50 mg STK-MED ONCE .ROUTE ; Start 07/18/17 at 11: 38; Stop 07/18/17 at 12:47; Status DC Propofol 20 ml @ As Directed STK-MED ONCE IV ; Start 07/18/17 at 11:38; Stop 07/18/17 at 12:47; Status DC Lidocaine HCl (Lidocaine Pf 2% Vial) 5 ml STK-MED ONCE .ROUTE ; Start 07/18/17 at 11:38; Stop 07/18/17 at 12:47; Status DC Dexamethasone Sodium Phosphate (Decadron) 20 mg STK-MED ONCE .ROUTE ; Start at 11:38; Stop 07/18/17 at 12:47; Status DC Ondansetron HCl (Zofran) 4 mg STK-MED ONCE .ROUTE ; Start 07/18/17 at 11:38; Stop 07/18/17 at 12:48; Status DC Cefazolin Sodium 1 gm/Sodium Chloride 250 ml @ 250 mls/hr 1X PERIOP ONCE IRR ; Start 07/18/17 at 14:00; Stop 07/18/17 at 14:59; Status DC Vasopressin (Vasostrict) 20 unit STK-MED ONCE .ROUTE ; Start 07/18/17 at 14:27 ; Stop 07/18/17 at 14:28; Status DC Fentanyl Citrate (Fentanyl 2ml Vial) 100 mcg STK-MED ONCE .ROUTE ; Start at 14:42; Stop 07/18/17 at 14:43; Status DC Morphine Sulfate 2 mg PRN Q2HR PRN IV PAIN; Start 07/18/17 at 15:30 Sodium Chloride 1,000 ml @ 100 mls/hr Q10H PRN IV SEE COMMENTS; Start at 12:00 Multivitamins (Thera M Plus) 1 tab DAILY PO Last administered on 07/25/17 08: 11; Start 07/19/17 at 10:00 Ascorbic Acid (Vitamin C) 500 mg DAILY PO Last administered on 07/25/17 08:11 ; Start 07/19/17 at 10:00 Gabapentin (Neurontin) 300 mg TID PO Last administered on 07/25/17 08:12; Start 07/19/17 at 09:45 Acetaminophen/ Hydrocodone Bitart (Lortab 7.5/325) 1 tab PRN Q4HRS PRN PO PAIN ; Start 07/19/17 at 09:45 Metoprolol Tartrate (Lopressor) 25 mg BID PO Last administered on 07/25/17 08: 13; Start 07/21/17 at 21:00 Metoprolol Tartrate (Lopressor) 25 mg 1X ONCE PO ; Start 07/21/17 at 09:45; Stop 07/21/17 at 09:51; Status DC Insulin Aspart (NovoLOG) 10 units TIDAC SQ Last administered on 07/25/17 08:27 ; Start 07/23/17 at 16:30 Insulin Detemir (Levemir) 26 units QHS SQ Last administered on 07/24/17 21:45 ; Start 07/23/17 at 21:00 Active Scripts Active Flomax (Tamsulosin Hcl) 0.4 Mg Cap.er.24h 0.4 Mg PO QHS Reported Humalog (Insulin Lispro) 100 Unit/1 Ml Insuln.pen 7 Unit SQ TIDWMEALS Tylenol (Acetaminophen) 325 Mg Tablet 650 Mg PO PRN Q4HRS PRN Losartan Potassium 50 Mg Tablet 50 Mg PO QHS Lantus Solostar (Insulin Glargine,Hum.rec.anlog) 100 Unit/1 Ml Insuln.pen 19 Unit SQ QHS Colace (Docusate Sodium) 100 Mg Capsule 100 Mg PO DAILY Clopidogrel (Clopidogrel Bisulfate) 75 Mg Tablet 75 Mg PO DAILY Hydrocodone-Apap 5-325 (Hydrocodone Bit/Acetaminophen) 1 Each Tablet 1 Tab PO PRN Q6HRS PRN Vitals/I & O Vital Sign - Last 24 Hours 07/24/17 07/24/17 07/24/17 07/24/17 11:24 14:53 19:00 20:00 Temp 100.8 98.9 98.8 100.8 98.9 98.8 Pulse 84 81 79 Resp 18 18 18 B/P (MAP) 122/66 (84) 113/66 (82) 135/72 (93) Pulse Ox 96 97 98 O2 Delivery Room Air Room Air Room Air Room Air 07/24/17 07/24/17 07/24/17 07/25/17 21:34 21:35 23:41 03:31 Temp 98.4 100.9 98.4 100.9 Pulse 79 79 74 74 Resp 18 16 B/P (MAP) 135/72 135/72 141/78 (99) 125/65 (85) Pulse Ox 97 98 O2 Delivery Room Air Room Air 07/25/17 07/25/17 07:00 08:13 Temp 100.9 100.9 Pulse 73 73 Resp 18 B/P (MAP) 142/77 (98) 142/77 O2 Delivery Room Air Intake and Output 07/24/17 07/24/17 07/25/17 15:00 23:00 07:00 Intake Total 1191 ml 500 ml Output Total 975 ml 950 ml Balance 216 ml -450 ml NADEGE JAIN MD Jul 25, 2017 10:15
--- NOTE | 2017-07-25 13:07 | PDOC ---
PROGRESS NOTES Chief Complaint Chief Complaint CVA - MRI showed Small acute infarct in the left posterior parietal lobe admit for LE cellulitis Diabetic foot ulcers, s/p bilat amputations 1. Cellulitis with diabetic ulcers R thigh/B stumps: s/p debridement 07/13. 2. DM2: HgbA1c 8.6. 3. PVD: s/p B BKA. 4. UTI: K.pneumoniae, pansensitive. 5. Anemia: of CKD 3 6. weakness and debility 7. htn, poor control 8. severe malnutrition History of Present Illness History of Present Illness left arm still unable to move better PO intake has worked with PT and OT, still very weak overall Poor healing previously cont IV zosyn s/p AKA doing well on gabapentin for nerve pain Vitals Vitals Vital Signs Date Time Temp Pulse Resp B/P (MAP) Pulse Ox O2 Delivery O2 Flow Rate FiO2 07/25/17 11:31 100.6 72 16 117/71 (86) 97 Room Air 100.6 07/25/17 08:00 98.0 Physical Exam General: Alert, Oriented X3, Cooperative, No acute distress Heart: Regular rate, No murmurs Lungs: Clear Abdomen: Soft, No tenderness Extremities: Other (right aka stump dressing dry; minimal drainage per DEWAYNE) Skin: No rashes, Other (bilat ulcers dressed) Labs LABS Laboratory Tests Test 07/24/17 16:38 07/24/17 19:25 07/25/17 07:29 07/25/17 11:48 Glucose (Fingerstick) 202 mg/dL (70-99) 196 mg/dL (70-99) 147 mg/dL (70-99) 123 mg/dL (70-99) Assessment and Plan Assessmemt and Plan Problems Medical Problems: (1) Hyperglycemia Status: Acute Problems: Comment Review of Relevant I have reviewed the following items yobani (where applicable) has been applied. Labs Laboratory Tests Test 07/23/17 16:24 07/23/17 20:00 07/24/17 07:21 07/24/17 11:41 Glucose (Fingerstick) 272 mg/dL (70-99) 202 mg/dL (70-99) 71 mg/dL (70-99) 145 mg/dL (70-99) Test 07/24/17 16:38 07/24/17 19:25 07/25/17 07:29 07/25/17 11:48 Glucose (Fingerstick) 202 mg/dL (70-99) 196 mg/dL (70-99) 147 mg/dL (70-99) 123 mg/dL (70-99) Laboratory Tests Test 07/24/17 16:38 07/24/17 19:25 07/25/17 07:29 07/25/17 11:48 Glucose (Fingerstick) 202 mg/dL (70-99) 196 mg/dL (70-99) 147 mg/dL (70-99) 123 mg/dL (70-99) Microbiology 07/15/17 Blood Culture - Final, Complete NO GROWTH AFTER 5 DAYS 07/11/17 Urine Culture - Final, Complete 07/11/17 Urine Culture Result 1 (CHICO) - Final, Complete 07/11/17 Antimicrobic Susceptibility - Final, Complete 07/14/17 Gram Stain - Final, Complete Medications Current Medications Sodium Chloride 1,000 ml @ 1,000 mls/hr 1X ONCE IV Last administered on 07/11 18:11; Start 07/11/17 at 18:00; Stop 07/11/17 at 18:59; Status DC Insulin Human Regular (NovoLIN R VIAL) 10 unit 1X ONCE IV Last administered on 07/11/17 18:56; Start 07/11/17 at 19:00; Stop 07/11/17 at 19:01; Status DC Acetaminophen (Tylenol) 650 mg PRN Q4HRS PRN PO MILD PAIN Last administered on 07/22/17 23:20; Start 07/12/17 at 13:00 Clopidogrel Bisulfate (Plavix) 75 mg DAILY PO Last administered on 07/25/17 08 :12; Start 07/12/17 at 14:00 Docusate Sodium (Colace) 100 mg DAILY PO Last administered on 07/25/17 08:12; Start 07/12/17 at 14:00 Acetaminophen/ Hydrocodone Bitart (Lortab 5/325) 1 tab PRN Q6HRS PRN PO MODERATE PAIN; Start 07/12/17 at 13:00 Losartan Potassium (Cozaar) 50 mg QHS PO Last administered on 07/24/17 21:35; Start 07/12/17 at 21:00 Tamsulosin HCl (Flomax) 0.4 mg QHS PO Last administered on 07/24/17 21:34; Start 07/12/17 at 21:00 Insulin Detemir (Levemir) 19 units QHS SQ Last administered on 07/13/17 21:22 ; Start 07/12/17 at 21:00; Stop 07/14/17 at 12:26; Status DC Insulin Aspart (NovoLOG) 7 units TIDAC SQ Last administered on 07/23/17 13:57 ; Start 07/12/17 at 16:30; Stop 07/23/17 at 15:06; Status DC Piperacillin Sod/ Tazobactam Sod 3.375 gm/Dextrose 50 ml @ 100 mls/hr Q6HRS IV ; Start 07/12/17 at 16:00; Status Cancel Piperacillin Sod/ Tazobactam Sod (Zosyn) 3.375 gm Q6HRS IVP Last administered on 07/25/17 05:55; Start 07/12/17 at 16:00 Enoxaparin Sodium (Lovenox 40mg Syringe) 40 mg Q24H SQ Last administered on 13:34; Start 07/13/17 at 15:00 Insulin Detemir (Levemir) 22 units QHS SQ Last administered on 07/22/17 20:37 ; Start 07/14/17 at 21:00; Stop 07/23/17 at 15:06; Status DC Lactobacillus Rhamnosus (Culturelle) 1 cap BID PO Last administered on 08:12; Start 07/14/17 at 21:00 Sodium Chloride 500 ml @ 500 mls/hr 1X ONCE IV Last administered on 09:09; Start 07/15/17 at 09:00; Stop 07/15/17 at 09:59; Status DC Ceftriaxone Sodium 1 gm/ Dextrose 50 ml @ 100 mls/hr Q24H IV ; Start 07/16/17 at 12:45; Status UNV Ondansetron HCl (Zofran) 4 mg PRN Q6HRS PRN IV NAUSEA/VOMITING; Start at 12:45 Acetaminophen (Tylenol) 650 mg PRN Q6HRS PRN PO pain; Start 07/16/17 at 12:45 ; Status UNV Insulin Aspart (NovoLOG) 0-9 UNITS TIDWMEALS SQ Last administered on 07/24/17t 17:20; Start 07/16/17 at 17:00 Dextrose (Dextrose 50%-Water Syringe) 12.5 gm PRN Q15MIN PRN IV SEE COMMENTS; Start 07/16/17 at 12:45 Oxycodone/ Acetaminophen (Percocet 5/325) 1 tab PRN Q4HRS PRN PO PAIN; Start 07/16/17 at 12:45; Stop 07/19/17 at 09:35; Status DC Ceftriaxone Sodium (Rocephin) 1 gm Q24H IVP Last administered on 07/16/17t 13: 52; Start 07/16/17 at 13:00; Stop 07/16/17 at 14:30; Status DC Piperacillin Sod/ Tazobactam Sod (Zosyn Per Pharmacy) 1 each PRN DAILY PRN MC SEE COMMENTS; Start 07/16/17 at 14:30; Stop 07/18/17 at 15:44; Status DC Ondansetron HCl (Zofran) 4 mg PRN Q6HRS PRN IV NAUSEA/VOMITING; Start at 07:45; Stop 07/19/17 at 07:44; Status DC Fentanyl Citrate (Fentanyl 2ml Vial) 25 mcg PRN Q5MIN PRN IV MILD PAIN; Start 07/18/17 at 07:45; Stop 07/19/17 at 07:44; Status DC Fentanyl Citrate (Fentanyl 2ml Vial) 50 mcg PRN Q5MIN PRN IV MODERATE PAIN; Start 07/18/17 at 07:45; Stop 07/19/17 at 07:44; Status DC Morphine Sulfate 1 mg PRN Q10MIN PRN IV SEVERE PAIN; Start 07/18/17 at 07:45; Stop 07/19/17 at 07:44; Status DC Ringer's Solution 1,000 ml @ 30 mls/hr Q24H IV ; Start 07/18/17 at 07:43; Stop 07/18/17 at 19:42; Status DC Lidocaine HCl (Xylocaine-Mpf 1% Vial) 2 ml 1X PRN PRN ID IV START; Start 07/18 at 07:45; Stop 07/19/17 at 07:44; Status DC Hydromorphone HCl (Dilaudid) 0.5 mg PRN Q10MIN PRN IV SEV PAIN, Second choice; Start 07/18/17 at 07:45; Stop 07/19/17 at 07:44; Status DC Prochlorperazine Edisylate (Compazine) 5 mg PACU PRN PRN IV NAUSEA, MRX1; Start 07/18/17 at 07:45; Stop 07/19/17 at 07:44; Status DC Sevoflurane (Ultane) 90 ml STK-MED ONCE IH ; Start 07/18/17 at 11:37; Stop at 12:47; Status DC Neostigmine Methylsulfate (Bloxiverz) 10 mg STK-MED ONCE .ROUTE ; Start at 11:37; Stop 07/18/17 at 12:47; Status DC Midazolam HCl (Versed) 2 mg STK-MED ONCE .ROUTE ; Start 07/18/17 at 11:38; Stop 07/18/17 at 12:47; Status DC Fentanyl Citrate (Fentanyl 2ml Vial) 100 mcg STK-MED ONCE .ROUTE ; Start at 11:38; Stop 07/18/17 at 12:47; Status DC Glycopyrrolate (Robinul) 1 mg STK-MED ONCE .ROUTE ; Start 07/18/17 at 11:38; Stop 07/18/17 at 12:47; Status DC Rocuronium [place] (Zemuron) 50 mg STK-MED ONCE .ROUTE ; Start 07/18/17 at 11: 38; Stop 07/18/17 at 12:47; Status DC Propofol 20 ml @ As Directed STK-MED ONCE IV ; Start 07/18/17 at 11:38; Stop 07/18/17 at 12:47; Status DC Lidocaine HCl (Lidocaine Pf 2% Vial) 5 ml STK-MED ONCE .ROUTE ; Start 07/18/17 at 11:38; Stop 07/18/17 at 12:47; Status DC Dexamethasone Sodium Phosphate (Decadron) 20 mg STK-MED ONCE .ROUTE ; Start at 11:38; Stop 07/18/17 at 12:47; Status DC Ondansetron HCl (Zofran) 4 mg STK-MED ONCE .ROUTE ; Start 07/18/17 at 11:38; Stop 07/18/17 at 12:48; Status DC Cefazolin Sodium 1 gm/Sodium Chloride 250 ml @ 250 mls/hr 1X PERIOP ONCE IRR ; Start 07/18/17 at 14:00; Stop 07/18/17 at 14:59; Status DC Vasopressin (Vasostrict) 20 unit STK-MED ONCE .ROUTE ; Start 07/18/17 at 14:27 ; Stop 07/18/17 at 14:28; Status DC Fentanyl Citrate (Fentanyl 2ml Vial) 100 mcg STK-MED ONCE .ROUTE ; Start at 14:42; Stop 07/18/17 at 14:43; Status DC Morphine Sulfate 2 mg PRN Q2HR PRN IV PAIN; Start 07/18/17 at 15:30 Sodium Chloride 1,000 ml @ 100 mls/hr Q10H PRN IV SEE COMMENTS; Start at 12:00 Multivitamins (Thera M Plus) 1 tab DAILY PO Last administered on 07/25/17 08: 11; Start 07/19/17 at 10:00 Ascorbic Acid (Vitamin C) 500 mg DAILY PO Last administered on 07/25/17 08:11 ; Start 07/19/17 at 10:00 Gabapentin (Neurontin) 300 mg TID PO Last administered on 07/25/17 08:12; Start 07/19/17 at 09:45 Acetaminophen/ Hydrocodone Bitart (Lortab 7.5/325) 1 tab PRN Q4HRS PRN PO PAIN ; Start 07/19/17 at 09:45 Metoprolol Tartrate (Lopressor) 25 mg BID PO Last administered on 07/25/17 08: 13; Start 07/21/17 at 21:00 Metoprolol Tartrate (Lopressor) 25 mg 1X ONCE PO ; Start 07/21/17 at 09:45; Stop 07/21/17 at 09:51; Status DC Insulin Aspart (NovoLOG) 10 units TIDAC SQ Last administered on 07/25/17 08:27 ; Start 07/23/17 at 16:30 Insulin Detemir (Levemir) 26 units QHS SQ Last administered on 07/24/17 21:45 ; Start 07/23/17 at 21:00 Active Scripts Active Flomax (Tamsulosin Hcl) 0.4 Mg Cap.er.24h 0.4 Mg PO QHS Reported Humalog (Insulin Lispro) 100 Unit/1 Ml Insuln.pen 7 Unit SQ TIDWMEALS Tylenol (Acetaminophen) 325 Mg Tablet 650 Mg PO PRN Q4HRS PRN Losartan Potassium 50 Mg Tablet 50 Mg PO QHS Lantus Solostar (Insulin Glargine,Hum.rec.anlog) 100 Unit/1 Ml Insuln.pen 19 Unit SQ QHS Colace (Docusate Sodium) 100 Mg Capsule 100 Mg PO DAILY Clopidogrel (Clopidogrel Bisulfate) 75 Mg Tablet 75 Mg PO DAILY Hydrocodone-Apap 5-325 (Hydrocodone Bit/Acetaminophen) 1 Each Tablet 1 Tab PO PRN Q6HRS PRN Vitals/I & O Vital Sign - Last 24 Hours 07/24/17 07/24/17 07/24/17 07/24/17 14:53 19:00 20:00 21:34 Temp 98.9 98.8 98.9 98.8 Pulse 81 79 79 Resp 18 18 B/P (MAP) 113/66 (82) 135/72 (93) 135/72 Pulse Ox 97 98 O2 Delivery Room Air Room Air Room Air 07/24/17 07/24/17 07/25/17 07/25/17 21:35 23:41 03:31 07:00 Temp 98.4 100.9 100.9 98.4 100.9 100.9 Pulse 79 74 74 73 Resp 18 16 18 B/P (MAP) 135/72 141/78 (99) 125/65 (85) 142/77 (98) Pulse Ox 97 98 O2 Delivery Room Air Room Air Room Air 07/25/17 07/25/17 07/25/17 07/25/17 08:00 08:13 10:55 11:12 Temp 100.6 100.6 Pulse 73 72 Resp 16 B/P (MAP) 142/77 117/71 (86) Pulse Ox 97 O2 Delivery Room Air Room Air Room Air O2 Flow Rate 98.0 07/25/17 11:31 Temp 100.6 100.6 Pulse 72 Resp 16 B/P (MAP) 117/71 (86) Pulse Ox 97 O2 Delivery Room Air Intake and Output 12/3/17 12/3/17 12/4/17 15:00 23:00 07:00 Intake Total 1191 ml 500 ml Output Total 975 ml 950 ml Balance 216 ml -450 ml DOMENICA CHRISTIANSON MD Jul 25, 2017 13:07
[2017-07-25] MEDS: ACETAMINOPHEN 325 MG TABLET. PO PRN (13:35)
--- NOTE | 2017-07-25 17:20 | RAD ---
MRI of the cervical spine without contrast 07/25/2017 CLINICAL HISTORY: Neck pain with left arm numbness. TECHNIQUE: Unenhanced T1-weighted, T2-weighted and recovery sagittal and gradient echo and T2-weighted axial images of the cervical spine were obtained. FINDINGS: There is reversal of the normal cervical lordosis. Degenerative signal changes are seen involving all the disks of the cervical spine. Loss of height of the C4-5, C5-6, and C6-7 discs is noted. Degenerative signal changes are seen within the marrow surrounding these discs. Atrophy of the cervical spinal cord is seen extending from C3-4 through C6-7. Areas of abnormally increased signal intensity are seen on the T2-weighted images throughout the cervical spinal cord at these levels consistent with areas of myelomalacia. Mild to moderate mucosal thickening is seen involving the maxillary sinuses. Patchy areas of increased signal intensity are seen involving the lucero on the T2-weighted and inversion recovery images with areas of ischemic demyelination. On the axial images at the C2-3 disc space there is a minimal generalized disc bulge. Degenerative changes are seen involving the uncovertebral and facet joints bilaterally. These findings do not result in significant central spinal canal or neural foraminal stenosis. At the C3-4 disc space there is a mild generalized disc bulge. Superimposed on this disc bulge is a central/right paracentral disc osteophyte complex. This measures 4 mm in AP diameter. Degenerative changes are seen involving the uncovertebral and facet joints bilaterally. These findings result in mild right greater than left central spinal canal stenosis. Mild to moderate right greater than left neural foraminal stenosis is seen. The patient is post laminectomy extending from C4 to C6. At the C4-5 disc space there is a mild to moderate generalized disc bulge. This is eccentric to the right. Degenerative changes are seen involving the uncovertebral and facet joints, right greater than left. These findings efface the anterior and posterior CSF resulting in mild right greater than left central spinal canal stenosis without cord impingement. Moderate to severe right greater than left neural foraminal stenosis is seen. At the C5-6 disc space there is a mild to moderate generalized disc bulge. Degenerative changes are seen involving the uncovertebral and facet joints bilaterally. These findings efface the anterior CSF resulting in mild central spinal canal stenosis without evidence of cord impingement. Moderate to severe bilateral neural foraminal stenosis is seen. At the C6-7 disc space there is a mild generalized disc bulge. Degenerative changes are seen involving the uncovertebral and facet joints bilaterally. These findings efface the anterior and posterior CSF resulting in mild central spinal canal stenosis without evidence of cord impingement. Severe bilateral neural foraminal stenosis is seen. At the C7-T1 disc space there is a mild to moderate generalized disc bulge. Degenerative changes are seen involving the uncovertebral and facet joints bilaterally. These findings do not result in significant central spinal canal stenosis. Moderate bilateral neural foraminal stenosis is seen. IMPRESSION: 1. Post laminectomy extending from C4 to C6. 2. Areas of atrophy and myelomalacia are seen involving the cervical spinal cord extending from C3-4 to C6-7. 3. Degenerative changes are seen throughout the cervical spine which result in multilevel central spinal canal and neural foraminal stenosis of varying severity as outlined above. Electronically signed by: Adalberto Julien MD (07/25/2017 5:17 PM) [id number]
[2017-07-25] MEDS: ENOXAPARIN 40 MG/0.4 ML SYRINGE. SQ SCH (17:37)
[2017-07-25] MEDS: TAMSULOSIN 0.4 MG CAP.ER.24H. PO SCH (20:18)
[2017-07-25] MEDS: LOSARTAN POTASSIUM 50 MG TABLET. PO SCH (20:19)
[2017-07-25] MEDS: INSULIN DETEMIR 300 UNITS/3 ML INSULN.PEN. SQ SCH (20:26)
[2017-07-26] MEDS: PIPERACILLIN/TAZO IV Push 3.375 GM VIAL. IVP SCH ×2 (00:21→05:53)
[2017-07-26 03:20] VITALS: BP 146/80
[2017-07-26 07:00] VITALS: BP 135/76
[2017-07-26] MEDS: INSULIN ASPART 300 UNITS/3 ML INSULN.PEN SQ SCH ×6 (07:30→17:06)
--- NOTE | 2017-07-26 08:53 | PDOC ---
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 Diabetes with neuropathy Peripheral vascular disease Plan Rehabilitation modalities Subjective No complaints Objective Vital Signs Date Time Temp Pulse Resp B/P (MAP) Pulse Ox O2 Delivery O2 Flow Rate FiO2 07/26/17 07:00 98.6 71 16 135/76 (95) 96 Room Air 98.6 07/25/17 08:00 98.0 Intake and Output 07/26/17 07:00 Intake Total 500 ml Output Total 1850 ml Balance -1350 ml Intake Oral 500 ml Output Urine Total 1850 ml PHYSICAL EXAM Alert. Oriented to time, place and person. PERRL. EOMI. CN: no focal findings. Muscle tone: normal. Muscle strength: 0/5 left arm, 3/5 right arm, first dorsal interosseous atrophy , hesitates to move legs, but is able to move both, weaker on the left, though DTR: 1+ Plantar reflex: N/A Gait: not examined in bed. Sensory exam: no abnormal findings. No cerebellar signs elicited. Review of Relevant I have reviewed the following items yobani (where applicable) has been applied. Labs Laboratory Tests Test 07/24/17 11:41 07/24/17 16:38 07/24/17 19:25 07/25/17 07:29 Glucose (Fingerstick) 145 mg/dL (70-99) 202 mg/dL (70-99) 196 mg/dL (70-99) 147 mg/dL (70-99) Test 07/25/17 11:48 07/25/17 17:12 07/25/17 20:17 07/26/17 07:19 Glucose (Fingerstick) 123 mg/dL (70-99) 186 mg/dL (70-99) 154 mg/dL (70-99) 109 mg/dL (70-99) Laboratory Tests Test 07/25/17 11:48 07/25/17 17:12 07/25/17 20:17 07/26/17 07:19 Glucose (Fingerstick) 123 mg/dL (70-99) 186 mg/dL (70-99) 154 mg/dL (70-99) 109 mg/dL (70-99) Microbiology 11/24/17 Blood Culture - Final, Complete NO GROWTH AFTER 5 DAYS 07/11/17 Urine Culture - Final, Complete 07/11/17 Urine Culture Result 1 ([facility]) - Final, Complete 07/11/17 Antimicrobic Susceptibility - Final, Complete 07/14/17 Gram Stain - Final, Complete Medications Current Medications Sodium Chloride 1,000 ml @ 1,000 mls/hr 1X ONCE IV Last administered on 07/11 18:11; Start 07/11/17 at 18:00; Stop 07/11/17 at 18:59; Status DC Insulin Human Regular (NovoLIN R VIAL) 10 unit 1X ONCE IV Last administered on 07/11/17 18:56; Start 07/11/17 at 19:00; Stop 07/11/17 at 19:01; Status DC Acetaminophen (Tylenol) 650 mg PRN Q4HRS PRN PO MILD PAIN Last administered on 07/25/17 13:35; Start 07/12/17 at 13:00 Clopidogrel Bisulfate (Plavix) 75 mg DAILY PO Last administered on 07/25/17 08 :12; Start 07/12/17 at 14:00 Docusate Sodium (Colace) 100 mg DAILY PO Last administered on 07/25/17 08:12; Start 07/12/17 at 14:00 Acetaminophen/ Hydrocodone Bitart (Lortab 5/325) 1 tab PRN Q6HRS PRN PO MODERATE PAIN; Start 07/12/17 at 13:00 Losartan Potassium (Cozaar) 50 mg QHS PO Last administered on 07/25/17 20:19; Start 07/12/17 at 21:00 Tamsulosin HCl (Flomax) 0.4 mg QHS PO Last administered on 07/25/17 20:18; Start 07/12/17 at 21:00 Insulin Detemir (Levemir) 19 units QHS SQ Last administered on 07/13/17 21:22 ; Start 07/12/17 at 21:00; Stop 07/14/17 at 12:26; Status DC Insulin Aspart (NovoLOG) 7 units TIDAC SQ Last administered on 07/23/17 13:57 ; Start 07/12/17 at 16:30; Stop 07/23/17 at 15:06; Status DC Piperacillin Sod/ Tazobactam Sod 3.375 gm/Dextrose 50 ml @ 100 mls/hr Q6HRS IV ; Start 07/12/17 at 16:00; Status Cancel Piperacillin Sod/ Tazobactam Sod (Zosyn) 3.375 gm Q6HRS IVP Last administered on 07/26/17 05:53; Start 07/12/17 at 16:00 Enoxaparin Sodium (Lovenox 40mg Syringe) 40 mg Q24H SQ Last administered on 17:37; Start 07/13/17 at 15:00 Insulin Detemir (Levemir) 22 units QHS SQ Last administered on 07/22/17 20:37 ; Start 07/14/17 at 21:00; Stop 07/23/17 at 15:06; Status DC Lactobacillus Rhamnosus (Culturelle) 1 cap BID PO Last administered on 20:18; Start 07/14/17 at 21:00 Sodium Chloride 500 ml @ 500 mls/hr 1X ONCE IV Last administered on 09:09; Start 07/15/17 at 09:00; Stop 07/15/17 at 09:59; Status DC Ceftriaxone Sodium 1 gm/ Dextrose 50 ml @ 100 mls/hr Q24H IV ; Start 07/16/17 at 12:45; Status UNV Ondansetron HCl (Zofran) 4 mg PRN Q6HRS PRN IV NAUSEA/VOMITING; Start at 12:45 Acetaminophen (Tylenol) 650 mg PRN Q6HRS PRN PO pain; Start 07/16/17 at 12:45 ; Status UNV Insulin Aspart (NovoLOG) 0-9 UNITS TIDWMEALS SQ Last administered on 07/25/17 17:45; Start 07/16/17 at 17:00 Dextrose (Dextrose 50%-Water Syringe) 12.5 gm PRN Q15MIN PRN IV SEE COMMENTS; Start 07/16/17 at 12:45 Oxycodone/ Acetaminophen (Percocet 5/325) 1 tab PRN Q4HRS PRN PO PAIN; Start 07/16/17 at 12:45; Stop 07/19/17 at 09:35; Status DC Ceftriaxone Sodium (Rocephin) 1 gm Q24H IVP Last administered on 07/16/17t 13: 52; Start 07/16/17 at 13:00; Stop 07/16/17 at 14:30; Status DC Piperacillin Sod/ Tazobactam Sod (Zosyn Per Pharmacy) 1 each PRN DAILY PRN MC SEE COMMENTS; Start 07/16/17 at 14:30; Stop 07/18/17 at 15:44; Status DC Ondansetron HCl (Zofran) 4 mg PRN Q6HRS PRN IV NAUSEA/VOMITING; Start at 07:45; Stop 07/19/17 at 07:44; Status DC Fentanyl Citrate (Fentanyl 2ml Vial) 25 mcg PRN Q5MIN PRN IV MILD PAIN; Start 07/18/17 at 07:45; Stop 07/19/17 at 07:44; Status DC Fentanyl Citrate (Fentanyl 2ml Vial) 50 mcg PRN Q5MIN PRN IV MODERATE PAIN; Start 07/18/17 at 07:45; Stop 07/19/17 at 07:44; Status DC Morphine Sulfate 1 mg PRN Q10MIN PRN IV SEVERE PAIN; Start 07/18/17 at 07:45; Stop 07/19/17 at 07:44; Status DC Ringer's Solution 1,000 ml @ 30 mls/hr Q24H IV ; Start 07/18/17 at 07:43; Stop 07/18/17 at 19:42; Status DC Lidocaine HCl (Xylocaine-Mpf 1% Vial) 2 ml 1X PRN PRN ID IV START; Start 07/18 at 07:45; Stop 07/19/17 at 07:44; Status DC Hydromorphone HCl (Dilaudid) 0.5 mg PRN Q10MIN PRN IV SEV PAIN, Second choice; Start 07/18/17 at 07:45; Stop 07/19/17 at 07:44; Status DC Prochlorperazine Edisylate (Compazine) 5 mg PACU PRN PRN IV NAUSEA, MRX1; Start 07/18/17 at 07:45; Stop 07/19/17 at 07:44; Status DC Sevoflurane (Ultane) 90 ml STK-MED ONCE IH ; Start 07/18/17 at 11:37; Stop at 12:47; Status DC Neostigmine Methylsulfate (Bloxiverz) 10 mg STK-MED ONCE .ROUTE ; Start at 11:37; Stop 07/18/17 at 12:47; Status DC Midazolam HCl (Versed) 2 mg STK-MED ONCE .ROUTE ; Start 07/18/17 at 11:38; Stop 07/18/17 at 12:47; Status DC Fentanyl Citrate (Fentanyl 2ml Vial) 100 mcg STK-MED ONCE .ROUTE ; Start at 11:38; Stop 07/18/17 at 12:47; Status DC Glycopyrrolate (Robinul) 1 mg STK-MED ONCE .ROUTE ; Start 07/18/17 at 11:38; Stop 07/18/17 at 12:47; Status DC Rocuronium Cuney (Zemuron) 50 mg STK-MED ONCE .ROUTE ; Start 07/18/17 at 11: 38; Stop 07/18/17 at 12:47; Status DC Propofol 20 ml @ As Directed STK-MED ONCE IV ; Start 07/18/17 at 11:38; Stop 07/18/17 at 12:47; Status DC Lidocaine HCl (Lidocaine Pf 2% Vial) 5 ml STK-MED ONCE .ROUTE ; Start 07/18/17 at 11:38; Stop 07/18/17 at 12:47; Status DC Dexamethasone Sodium Phosphate (Decadron) 20 mg STK-MED ONCE .ROUTE ; Start at 11:38; Stop 07/18/17 at 12:47; Status DC Ondansetron HCl (Zofran) 4 mg STK-MED ONCE .ROUTE ; Start 07/18/17 at 11:38; Stop 07/18/17 at 12:48; Status DC Cefazolin Sodium 1 gm/Sodium Chloride 250 ml @ 250 mls/hr 1X PERIOP ONCE IRR ; Start 07/18/17 at 14:00; Stop 07/18/17 at 14:59; Status DC Vasopressin (Vasostrict) 20 unit STK-MED ONCE .ROUTE ; Start 07/18/17 at 14:27 ; Stop 07/18/17 at 14:28; Status DC Fentanyl Citrate (Fentanyl 2ml Vial) 100 mcg STK-MED ONCE .ROUTE ; Start at 14:42; Stop 07/18/17 at 14:43; Status DC Morphine Sulfate 2 mg PRN Q2HR PRN IV PAIN; Start 07/18/17 at 15:30 Sodium Chloride 1,000 ml @ 100 mls/hr Q10H PRN IV SEE COMMENTS; Start at 12:00 Multivitamins (Thera M Plus) 1 tab DAILY PO Last administered on 07/25/17 08: 11; Start 07/19/17 at 10:00 Ascorbic Acid (Vitamin C) 500 mg DAILY PO Last administered on 07/25/17 08:11 ; Start 07/19/17 at 10:00 Gabapentin (Neurontin) 300 mg TID PO Last administered on 07/25/17 20:18; Start 07/19/17 at 09:45 Acetaminophen/ Hydrocodone Bitart (Lortab 7.5/325) 1 tab PRN Q4HRS PRN PO PAIN ; Start 07/19/17 at 09:45 Metoprolol Tartrate (Lopressor) 25 mg BID PO Last administered on 07/25/17 20: 19; Start 07/21/17 at 21:00 Metoprolol Tartrate (Lopressor) 25 mg 1X ONCE PO ; Start 07/21/17 at 09:45; Stop 07/21/17 at 09:51; Status DC Insulin Aspart (NovoLOG) 10 units TIDAC SQ Last administered on 07/25/17 17:45 ; Start 07/23/17 at 16:30 Insulin Detemir (Levemir) 26 units QHS SQ Last administered on 07/25/17 20:26 ; Start 07/23/17 at 21:00 Active Scripts Active Flomax (Tamsulosin Hcl) 0.4 Mg Cap.er.24h 0.4 Mg PO QHS Reported Humalog (Insulin Lispro) 100 Unit/1 Ml Insuln.pen 7 Unit SQ TIDWMEALS Tylenol (Acetaminophen) 325 Mg Tablet 650 Mg PO PRN Q4HRS PRN Losartan Potassium 50 Mg Tablet 50 Mg PO QHS Lantus Solostar (Insulin Glargine,Hum.rec.anlog) 100 Unit/1 Ml Insuln.pen 19 Unit SQ QHS Colace (Docusate Sodium) 100 Mg Capsule 100 Mg PO DAILY Clopidogrel (Clopidogrel Bisulfate) 75 Mg Tablet 75 Mg PO DAILY Hydrocodone-Apap 5-325 (Hydrocodone Bit/Acetaminophen) 1 Each Tablet 1 Tab PO PRN Q6HRS PRN Vitals/I & O Vital Sign - Last 24 Hours 07/25/17 07/25/17 07/25/17 07/25/17 10:55 11:12 11:31 15:00 Temp 100.6 100.6 100.8 100.6 100.6 100.8 Pulse 72 72 73 Resp 16 16 16 B/P (MAP) 117/71 (86) 117/71 (86) 144/78 (100) Pulse Ox 97 97 98 O2 Delivery Room Air Room Air Room Air Room Air 07/25/17 07/25/17 07/25/17 07/25/17 19:20 20:00 20:19 20:19 Temp 99.7 99.7 Pulse 80 80 80 Resp 20 B/P (MAP) 125/71 (89) 125/71 125/71 Pulse Ox 98 O2 Delivery Room Air Room Air 07/25/17 07/26/17 07/26/17 23:20 03:20 07:00 Temp 99.3 98.8 98.6 99.3 98.8 98.6 Pulse 73 75 71 Resp 18 18 16 B/P (MAP) 136/74 (94) 146/80 (102) 135/76 (95) Pulse Ox 96 O2 Delivery Room Air Room Air Intake and Output 07/25/17 07/25/17 07/26/17 15:00 23:00 07:00 Intake Total 500 ml 0 ml Output Total 1000 ml 850 ml Balance -500 ml -850 ml Images MRI of the cervical spine without contrast 07/25/2017 CLINICAL HISTORY: Neck pain with left arm numbness. TECHNIQUE: Unenhanced T1-weighted, T2-weighted and recovery sagittal and gradient echo and T2-weighted axial images of the cervical spine were obtained. FINDINGS: There is reversal of the normal cervical lordosis. Degenerative signal changes are seen involving all the disks of the cervical spine. Loss of height of the C4-5, C5-6, and C6-7 discs is noted. Degenerative signal changes are seen within the marrow surrounding these discs. Atrophy of the cervical spinal cord is seen extending from C3-4 through C6-7. Areas of abnormally increased signal intensity are seen on the T2-weighted images throughout the cervical spinal cord at these levels consistent with areas of myelomalacia. Mild to moderate mucosal thickening is seen involving the maxillary sinuses. Patchy areas of increased signal intensity are seen involving the lucero on the T2-weighted and inversion recovery images with areas of ischemic demyelination. On the axial images at the C2-3 disc space there is a minimal generalized disc bulge. Degenerative changes are seen involving the uncovertebral and facet joints bilaterally. These findings do not result in significant central spinal canal or neural foraminal stenosis. At the C3-4 disc space there is a mild generalized disc bulge. Superimposed on this disc bulge is a central/right paracentral disc osteophyte complex. This measures 4 mm in AP diameter. Degenerative changes are seen involving the uncovertebral and facet joints bilaterally. These findings result in mild right greater than left central spinal canal stenosis. Mild to moderate right greater than left neural foraminal stenosis is seen. The patient is post laminectomy extending from C4 to C6. At the C4-5 disc space there is a mild to moderate generalized disc bulge. This is eccentric to the right. Degenerative changes are seen involving the uncovertebral and facet joints, right greater than left. These findings efface the anterior and posterior CSF resulting in mild right greater than left central spinal canal stenosis without cord impingement. Moderate to severe right greater than left neural foraminal stenosis is seen. At the C5-6 disc space there is a mild to moderate generalized disc bulge. Degenerative changes are seen involving the uncovertebral and facet joints bilaterally. These findings efface the anterior CSF resulting in mild central spinal canal stenosis without evidence of cord impingement. Moderate to severe bilateral neural foraminal stenosis is seen. At the C6-7 disc space there is a mild generalized disc bulge. Degenerative changes are seen involving the uncovertebral and facet joints bilaterally. These findings efface the anterior and posterior CSF resulting in mild central spinal canal stenosis without evidence of cord impingement. Severe bilateral neural foraminal stenosis is seen. At the C7-T1 disc space there is a mild to moderate generalized disc bulge. Degenerative changes are seen involving the uncovertebral and facet joints bilaterally. These findings do not result in significant central spinal canal stenosis. Moderate bilateral neural foraminal stenosis is seen. IMPRESSION: 1. Post laminectomy extending from C4 to C6. 2. Areas of atrophy and myelomalacia are seen involving the cervical spinal cord extending from C3-4 to C6-7. 3. Degenerative changes are seen throughout the cervical spine which result in multilevel central spinal canal and neural foraminal stenosis of varying severity as outlined above. NADEGE JAIN MD Jul 26, 2017 08:53
[2017-07-26] MEDS: DOCUSATE SODIUM 100 MG CAPSULE. PO SCH (09:10)
[2017-07-26] MEDS: GABAPENTIN 300 MG CAPSULE. PO SCH ×3 (09:10→20:36)
[2017-07-26] MEDS: CLOPIDOGREL BISULFATE 75 MG TABLET PO SCH (09:11)
[2017-07-26] MEDS: METOPROLOL TART IMMED RELEASE 25 MG TABLET. PO SCH ×2 (09:11→20:37)
[2017-07-26] MEDS: MULTIVITAMIN with MINERAL TABLET. PO SCH (09:11)
[2017-07-26] MEDS: LACTOBACILLUS RHAMNOSUS GG 1 CAPSULE. PO SCH ×2 (09:11→20:36)
[2017-07-26] MEDS: ASCORBIC ACID 500 MG TABLET PO SCH (09:11)
[2017-07-26 11:57] LABS: BASO % 1 % (0-3); EOS % 2 % (0-3); HEMATOCRIT 22.6 % (39.0-53.0); HEMOGLOBIN 7.4 g/dL (13.0-17.5); LYMPH # 2.3 x10^3/uL (1.0-4.8); LYMPH % 25 % (24-48); MEAN CORPUSCULAR HEMOGLOBIN 29 pg (25-35); MEAN CORPUSCULAR HGB CONC 33 g/dL (31-37); MEAN CORPUSCULAR VOLUME 89 fL (79-100); MONO % 6 % (0-9); NEUT % 67 % (31-73); PLATELET COUNT 208 x10^3/uL (140-400); RED BLOOD COUNT 2.53 x10^6/uL (4.30-5.70); RED CELL DISTRIBUTION WIDTH 15.6 % (11.5-14.5); WHITE BLOOD COUNT 9.2 x10^3/uL (4.0-11.0)
[2017-07-26 12:09] LABS: CALCIUM 7.9 mg/dL (8.5-10.1); CREATININE 1.6 mg/dL (0.7-1.3); GFR 54.2; POTASSIUM 4.2 mmol/L (3.5-5.1)
--- NOTE | 2017-07-26 13:24 | PDOC ---
Infectious Disease Note ROS ROS Vital Sign Vital Signs Vital Signs Date Time Temp Pulse Resp B/P (MAP) Pulse Ox O2 Delivery O2 Flow Rate FiO2 07/26/17 09:11 71 135/76 07/26/17 08:00 Room Air 98.0 07/26/17 07:00 98.6 16 96 98.6 Labs Lab Laboratory Tests Test 07/25/17 17:12 07/25/17 20:17 07/26/17 07:19 07/26/17 11:35 Glucose (Fingerstick) 186 mg/dL (70-99) 154 mg/dL (70-99) 109 mg/dL (70-99) White Blood Count 9.2 x10^3/uL (4.0-11.0) Red Blood Count 2.53 x10^6/uL (4.30-5.70) Hemoglobin 7.4 g/dL (13.0-17.5) Hematocrit 22.6 % (39.0-53.0) Mean Corpuscular Volume 89 fL (79-100) Mean Corpuscular Hemoglobin 29 pg (25-35) Mean Corpuscular Hemoglobin Concent 33 g/dL (31-37) Red Cell Distribution Width 15.6 % (11.5-14.5) Platelet Count 208 x10^3/uL (140-400) Neutrophils (%) (Auto) 67 % (31-73) Lymphocytes (%) (Auto) 25 % (24-48) Monocytes (%) (Auto) 6 % (0-9) Eosinophils (%) (Auto) 2 % (0-3) Basophils (%) (Auto) 1 % (0-3) Neutrophils # (Auto) 6.2 x10^3uL (1.8-7.7) Lymphocytes # (Auto) 2.3 x10^3/uL (1.0-4.8) Monocytes # (Auto) 0.5 x10^3/uL (0.0-1.1) Eosinophils # (Auto) 0.2 x10^3/uL (0.0-0.7) Basophils # (Auto) 0.0 x10^3/uL (0.0-0.2) Sodium Level 143 mmol/L (136-145) Potassium Level 4.2 mmol/L (3.5-5.1) Chloride Level 110 mmol/L (98-107) Carbon Dioxide Level 23 mmol/L (21-32) Anion Gap 10 (6-14) Blood Urea Nitrogen 47 mg/dL (8-26) Creatinine 1.6 mg/dL (0.7-1.3) Estimated GFR (Cockcroft-Gault) 54.2 Glucose Level 148 mg/dL (70-99) Calcium Level 7.9 mg/dL (8.5-10.1) Test 07/26/17 12:08 Glucose (Fingerstick) 148 mg/dL (70-99) Objective Assessment 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
--- NOTE | 2017-07-26 13:28 | PDOC ---
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 In no acute distress. Does complain of pain to RLE but able to palpate incision without patient complaint. RLE: Dressing removed. Old blood on dressing and dry and hard. Right stump incision palpated and small droplet of dark blood expressed. Incision intact and healthy otherwise. No incision discoloration or skin that appears compromised. LLE: Remains with partial contracture. Knee and stump wounds inspected. Tissues appear reasonably clean and without purulent drainage present. Non-odorous. Plan: 1. Continue to off-load pressure to left BKA stump. 2. Continue daily wound care to open wounds to LLE. 3. Wash right AKA incision daily and redress with clean gauze. 4. Continue antiplatelet therapy 5. Ok to discharge to LTAC when medically stable 5. Follow up with Dr. Ureña in 304 weeks for suture removal. [phone] Vital Signs Date Time Temp Pulse Resp B/P (MAP) Pulse Ox O2 Delivery O2 Flow Rate FiO2 07/26/17 09:11 71 135/76 07/26/17 08:00 Room Air 98.0 07/26/17 07:00 98.6 16 96 98.6 Intake and Output 07/26/17 07:00 Intake Total 500 ml Output Total 1850 ml Balance -1350 ml Intake Oral 500 ml Output Urine Total 1850 ml Assessment Assessment Problems Medical Problems: (1) Hyperglycemia Status: Acute Comment Review of Relevant I have reviewed the following items yobani (where applicable) has been applied. Labs Laboratory Tests Test 07/24/17 16:38 07/24/17 19:25 07/25/17 07:29 07/25/17 11:48 Glucose (Fingerstick) 202 mg/dL (70-99) 196 mg/dL (70-99) 147 mg/dL (70-99) 123 mg/dL (70-99) Test 07/25/17 17:12 07/25/17 20:17 07/26/17 07:19 07/26/17 11:35 Glucose (Fingerstick) 186 mg/dL (70-99) 154 mg/dL (70-99) 109 mg/dL (70-99) White Blood Count 9.2 x10^3/uL (4.0-11.0) Red Blood Count 2.53 x10^6/uL (4.30-5.70) Hemoglobin 7.4 g/dL (13.0-17.5) Hematocrit 22.6 % (39.0-53.0) Mean Corpuscular Volume 89 fL (79-100) Mean Corpuscular Hemoglobin 29 pg (25-35) Mean Corpuscular Hemoglobin Concent 33 g/dL (31-37) Red Cell Distribution Width 15.6 % (11.5-14.5) Platelet Count 208 x10^3/uL (140-400) Neutrophils (%) (Auto) 67 % (31-73) Lymphocytes (%) (Auto) 25 % (24-48) Monocytes (%) (Auto) 6 % (0-9) Eosinophils (%) (Auto) 2 % (0-3) Basophils (%) (Auto) 1 % (0-3) Neutrophils # (Auto) 6.2 x10^3uL (1.8-7.7) Lymphocytes # (Auto) 2.3 x10^3/uL (1.0-4.8) Monocytes # (Auto) 0.5 x10^3/uL (0.0-1.1) Eosinophils # (Auto) 0.2 x10^3/uL (0.0-0.7) Basophils # (Auto) 0.0 x10^3/uL (0.0-0.2) Sodium Level 143 mmol/L (136-145) Potassium Level 4.2 mmol/L (3.5-5.1) Chloride Level 110 mmol/L (98-107) Carbon Dioxide Level 23 mmol/L (21-32) Anion Gap 10 (6-14) Blood Urea Nitrogen 47 mg/dL (8-26) Creatinine 1.6 mg/dL (0.7-1.3) Estimated GFR (Cockcroft-Gault) 54.2 Glucose Level 148 mg/dL (70-99) Calcium Level 7.9 mg/dL (8.5-10.1) Test 07/26/17 12:08 Glucose (Fingerstick) 148 mg/dL (70-99) Laboratory Tests Test 07/25/17 17:12 07/25/17 20:17 07/26/17 07:19 07/26/17 11:35 Glucose (Fingerstick) 186 mg/dL (70-99) 154 mg/dL (70-99) 109 mg/dL (70-99) White Blood Count 9.2 x10^3/uL (4.0-11.0) Red Blood Count 2.53 x10^6/uL (4.30-5.70) Hemoglobin 7.4 g/dL (13.0-17.5) Hematocrit 22.6 % (39.0-53.0) Mean Corpuscular Volume 89 fL (79-100) Mean Corpuscular Hemoglobin 29 pg (25-35) Mean Corpuscular Hemoglobin Concent 33 g/dL (31-37) Red Cell Distribution Width 15.6 % (11.5-14.5) Platelet Count 208 x10^3/uL (140-400) Neutrophils (%) (Auto) 67 % (31-73) Lymphocytes (%) (Auto) 25 % (24-48) Monocytes (%) (Auto) 6 % (0-9) Eosinophils (%) (Auto) 2 % (0-3) Basophils (%) (Auto) 1 % (0-3) Neutrophils # (Auto) 6.2 x10^3uL (1.8-7.7) Lymphocytes # (Auto) 2.3 x10^3/uL (1.0-4.8) Monocytes # (Auto) 0.5 x10^3/uL (0.0-1.1) Eosinophils # (Auto) 0.2 x10^3/uL (0.0-0.7) Basophils # (Auto) 0.0 x10^3/uL (0.0-0.2) Sodium Level 143 mmol/L (136-145) Potassium Level 4.2 mmol/L (3.5-5.1) Chloride Level 110 mmol/L (98-107) Carbon Dioxide Level 23 mmol/L (21-32) Anion Gap 10 (6-14) Blood Urea Nitrogen 47 mg/dL (8-26) Creatinine 1.6 mg/dL (0.7-1.3) Estimated GFR (Cockcroft-Gault) 54.2 Glucose Level 148 mg/dL (70-99) Calcium Level 7.9 mg/dL (8.5-10.1) Test 07/26/17 12:08 Glucose (Fingerstick) 148 mg/dL (70-99) Microbiology 07/15/17 Blood Culture - Final, Complete NO GROWTH AFTER 5 DAYS 07/11/17 Urine Culture - Final, Complete 07/11/17 Urine Culture Result 1 ([facility]) - Final, Complete 07/11/17 Antimicrobic Susceptibility - Final, Complete 07/14/17 Gram Stain - Final, Complete Medications Current Medications Sodium Chloride 1,000 ml @ 1,000 mls/hr 1X ONCE IV Last administered on 07/11 18:11; Start 07/11/17 at 18:00; Stop 07/11/17 at 18:59; Status DC Insulin Human Regular (NovoLIN R VIAL) 10 unit 1X ONCE IV Last administered on 07/11/17 18:56; Start 07/11/17 at 19:00; Stop 07/11/17 at 19:01; Status DC Acetaminophen (Tylenol) 650 mg PRN Q4HRS PRN PO MILD PAIN Last administered on 07/25/17 13:35; Start 07/12/17 at 13:00 Clopidogrel Bisulfate (Plavix) 75 mg DAILY PO Last administered on 07/26/17 09 :11; Start 07/12/17 at 14:00 Docusate Sodium (Colace) 100 mg DAILY PO Last administered on 07/26/17 09:10; Start 07/12/17 at 14:00 Acetaminophen/ Hydrocodone Bitart (Lortab 5/325) 1 tab PRN Q6HRS PRN PO MODERATE PAIN; Start 07/12/17 at 13:00 Losartan Potassium (Cozaar) 50 mg QHS PO Last administered on 07/25/17 20:19; Start 07/12/17 at 21:00 Tamsulosin HCl (Flomax) 0.4 mg QHS PO Last administered on 07/25/17 20:18; Start 07/12/17 at 21:00 Insulin Detemir (Levemir) 19 units QHS SQ Last administered on 07/13/17 21:22 ; Start 07/12/17 at 21:00; Stop 07/14/17 at 12:26; Status DC Insulin Aspart (NovoLOG) 7 units TIDAC SQ Last administered on 07/23/17 13:57 ; Start 07/12/17 at 16:30; Stop 07/23/17 at 15:06; Status DC Piperacillin Sod/ Tazobactam Sod 3.375 gm/Dextrose 50 ml @ 100 mls/hr Q6HRS IV ; Start 07/12/17 at 16:00; Status Cancel Piperacillin Sod/ Tazobactam Sod (Zosyn) 3.375 gm Q6HRS IVP Last administered on 07/26/17 05:53; Start 07/12/17 at 16:00 Enoxaparin Sodium (Lovenox 40mg Syringe) 40 mg Q24H SQ Last administered on 17:37; Start 07/13/17 at 15:00 Insulin Detemir (Levemir) 22 units QHS SQ Last administered on 07/22/17 20:37 ; Start 07/14/17 at 21:00; Stop 07/23/17 at 15:06; Status DC Lactobacillus Rhamnosus (Culturelle) 1 cap BID PO Last administered on 09:11; Start 07/14/17 at 21:00 Sodium Chloride 500 ml @ 500 mls/hr 1X ONCE IV Last administered on 09:09; Start 07/15/17 at 09:00; Stop 07/15/17 at 09:59; Status DC Ceftriaxone Sodium 1 gm/ Dextrose 50 ml @ 100 mls/hr Q24H IV ; Start 07/16/17 at 12:45; Status UNV Ondansetron HCl (Zofran) 4 mg PRN Q6HRS PRN IV NAUSEA/VOMITING; Start at 12:45 Acetaminophen (Tylenol) 650 mg PRN Q6HRS PRN PO pain; Start 07/16/17 at 12:45 ; Status UNV Insulin Aspart (NovoLOG) 0-9 UNITS TIDWMEALS SQ Last administered on 07/25/17 17:45; Start 07/16/17 at 17:00 Dextrose (Dextrose 50%-Water Syringe) 12.5 gm PRN Q15MIN PRN IV SEE COMMENTS; Start 07/16/17 at 12:45 Oxycodone/ Acetaminophen (Percocet 5/325) 1 tab PRN Q4HRS PRN PO PAIN; Start 07/16/17 at 12:45; Stop 07/19/17 at 09:35; Status DC Ceftriaxone Sodium (Rocephin) 1 gm Q24H IVP Last administered on 07/16/17t 13: 52; Start 07/16/17 at 13:00; Stop 07/16/17 at 14:30; Status DC Piperacillin Sod/ Tazobactam Sod (Zosyn Per Pharmacy) 1 each PRN DAILY PRN MC SEE COMMENTS; Start 07/16/17 at 14:30; Stop 07/18/17 at 15:44; Status DC Ondansetron HCl (Zofran) 4 mg PRN Q6HRS PRN IV NAUSEA/VOMITING; Start at 07:45; Stop 07/19/17 at 07:44; Status DC Fentanyl Citrate (Fentanyl 2ml Vial) 25 mcg PRN Q5MIN PRN IV MILD PAIN; Start 07/18/17 at 07:45; Stop 07/19/17 at 07:44; Status DC Fentanyl Citrate (Fentanyl 2ml Vial) 50 mcg PRN Q5MIN PRN IV MODERATE PAIN; Start 07/18/17 at 07:45; Stop 07/19/17 at 07:44; Status DC Morphine Sulfate 1 mg PRN Q10MIN PRN IV SEVERE PAIN; Start 07/18/17 at 07:45; Stop 07/19/17 at 07:44; Status DC Ringer's Solution 1,000 ml @ 30 mls/hr Q24H IV ; Start 07/18/17 at 07:43; Stop 07/18/17 at 19:42; Status DC Lidocaine HCl (Xylocaine-Mpf 1% Vial) 2 ml 1X PRN PRN ID IV START; Start 07/18 at 07:45; Stop 07/19/17 at 07:44; Status DC Hydromorphone HCl (Dilaudid) 0.5 mg PRN Q10MIN PRN IV SEV PAIN, Second choice; Start 07/18/17 at 07:45; Stop 07/19/17 at 07:44; Status DC Prochlorperazine Edisylate (Compazine) 5 mg PACU PRN PRN IV NAUSEA, MRX1; Start 07/18/17 at 07:45; Stop 07/19/17 at 07:44; Status DC Sevoflurane (Ultane) 90 ml STK-MED ONCE IH ; Start 07/18/17 at 11:37; Stop at 12:47; Status DC Neostigmine Methylsulfate (Bloxiverz) 10 mg STK-MED ONCE .ROUTE ; Start at 11:37; Stop 07/18/17 at 12:47; Status DC Midazolam HCl (Versed) 2 mg STK-MED ONCE .ROUTE ; Start 07/18/17 at 11:38; Stop 07/18/17 at 12:47; Status DC Fentanyl Citrate (Fentanyl 2ml Vial) 100 mcg STK-MED ONCE .ROUTE ; Start at 11:38; Stop 07/18/17 at 12:47; Status DC Glycopyrrolate (Robinul) 1 mg STK-MED ONCE .ROUTE ; Start 07/18/17 at 11:38; Stop 07/18/17 at 12:47; Status DC Rocuronium [place] (Zemuron) 50 mg STK-MED ONCE .ROUTE ; Start 07/18/17 at 11: 38; Stop 07/18/17 at 12:47; Status DC Propofol 20 ml @ As Directed STK-MED ONCE IV ; Start 07/18/17 at 11:38; Stop 07/18/17 at 12:47; Status DC Lidocaine HCl (Lidocaine Pf 2% Vial) 5 ml STK-MED ONCE .ROUTE ; Start 07/18/17 at 11:38; Stop 07/18/17 at 12:47; Status DC Dexamethasone Sodium Phosphate (Decadron) 20 mg STK-MED ONCE .ROUTE ; Start at 11:38; Stop 07/18/17 at 12:47; Status DC Ondansetron HCl (Zofran) 4 mg STK-MED ONCE .ROUTE ; Start 07/18/17 at 11:38; Stop 07/18/17 at 12:48; Status DC Cefazolin Sodium 1 gm/Sodium Chloride 250 ml @ 250 mls/hr 1X PERIOP ONCE IRR ; Start 07/18/17 at 14:00; Stop 07/18/17 at 14:59; Status DC Vasopressin (Vasostrict) 20 unit STK-MED ONCE .ROUTE ; Start 07/18/17 at 14:27 ; Stop 07/18/17 at 14:28; Status DC Fentanyl Citrate (Fentanyl 2ml Vial) 100 mcg STK-MED ONCE .ROUTE ; Start at 14:42; Stop 07/18/17 at 14:43; Status DC Morphine Sulfate 2 mg PRN Q2HR PRN IV PAIN; Start 07/18/17 at 15:30 Sodium Chloride 1,000 ml @ 100 mls/hr Q10H PRN IV SEE COMMENTS; Start at 12:00 Multivitamins (Thera M Plus) 1 tab DAILY PO Last administered on 07/26/17 09: 11; Start 07/19/17 at 10:00 Ascorbic Acid (Vitamin C) 500 mg DAILY PO Last administered on 07/26/17 09:11 ; Start 07/19/17 at 10:00 Gabapentin (Neurontin) 300 mg TID PO Last administered on 07/26/17 09:10; Start 07/19/17 at 09:45 Acetaminophen/ Hydrocodone Bitart (Lortab 7.5/325) 1 tab PRN Q4HRS PRN PO PAIN ; Start 07/19/17 at 09:45 Metoprolol Tartrate (Lopressor) 25 mg BID PO Last administered on 07/26/17 09: 11; Start 07/21/17 at 21:00 Metoprolol Tartrate (Lopressor) 25 mg 1X ONCE PO ; Start 07/21/17 at 09:45; Stop 07/21/17 at 09:51; Status DC Insulin Aspart (NovoLOG) 10 units TIDAC SQ Last administered on 07/26/17 12:44 ; Start 07/23/17 at 16:30 Insulin Detemir (Levemir) 26 units QHS SQ Last administered on 07/25/17 20:26 ; Start 07/23/17 at 21:00 Active Scripts Active Flomax (Tamsulosin Hcl) 0.4 Mg Cap.er.24h 0.4 Mg PO QHS Reported Humalog (Insulin Lispro) 100 Unit/1 Ml Insuln.pen 7 Unit SQ TIDWMEALS Tylenol (Acetaminophen) 325 Mg Tablet 650 Mg PO PRN Q4HRS PRN Losartan Potassium 50 Mg Tablet 50 Mg PO QHS Lantus Solostar (Insulin Glargine,Hum.rec.anlog) 100 Unit/1 Ml Insuln.pen 19 Unit SQ QHS Colace (Docusate Sodium) 100 Mg Capsule 100 Mg PO DAILY Clopidogrel (Clopidogrel Bisulfate) 75 Mg Tablet 75 Mg PO DAILY Hydrocodone-Apap 5-325 (Hydrocodone Bit/Acetaminophen) 1 Each Tablet 1 Tab PO PRN Q6HRS PRN Vitals/I & O Vital Sign - Last 24 Hours 07/25/17 07/25/17 07/25/17 07/25/17 15:00 19:20 20:00 20:19 Temp 100.8 99.7 100.8 99.7 Pulse 73 80 80 Resp 16 20 B/P (MAP) 144/78 (100) 125/71 (89) 125/71 Pulse Ox 98 98 O2 Delivery Room Air Room Air Room Air 07/25/17 07/25/17 07/26/17 07/26/17 20:19 23:20 03:20 07:00 Temp 99.3 98.8 98.6 99.3 98.8 98.6 Pulse 80 73 75 71 Resp 18 18 16 B/P (MAP) 125/71 136/74 (94) 146/80 (102) 135/76 (95) Pulse Ox 96 O2 Delivery Room Air Room Air 07/26/17 07/26/17 08:00 09:11 Pulse 71 B/P (MAP) 135/76 O2 Delivery Room Air O2 Flow Rate 98.0 Intake and Output 07/25/17 07/25/17 07/26/17 15:00 23:00 07:00 Intake Total 500 ml 0 ml Output Total 1000 ml 850 ml Balance -500 ml -850 ml GREGORY ORTEGA APRN Jul 26, 2017 13:28
--- NOTE | 2017-07-26 14:14 | PDOC ---
SUBJECTIVE Subjective Patient seen and examined at bedside, still complains he can't move the left arm denies any chest pain, fever, chills, nausea, and vomiting. OBJECTIVE Vital Signs Vital Signs Date Time Temp Pulse Resp B/P (MAP) Pulse Ox O2 Delivery O2 Flow Rate FiO2 07/26/17 09:11 71 135/76 07/26/17 08:00 Room Air 98.0 07/26/17 07:00 98.6 71 16 135/76 (95) 96 Room Air 98.6 07/26/17 03:20 98.8 75 18 146/80 (102) 98.8 07/25/17 23:20 99.3 73 18 136/74 (94) Room Air 99.3 07/25/17 20:19 80 125/71 07/25/17 20:19 80 125/71 07/25/17 20:00 Room Air 07/25/17 19:20 99.7 80 20 125/71 (89) 98 Room Air 99.7 07/25/17 15:00 100.8 73 16 144/78 (100) 98 Room Air 100.8 I & O Intake and Output 07/26/17 07:00 Intake Total 500 ml Output Total 1850 ml Balance -1350 ml Intake Oral 500 ml Output Urine Total 1850 ml PHYSICAL EXAM Physical Exam GEN.: No apparent distress. Alert and oriented. HEENT: Head is normocephalic and atraumatic. LUNGS: Clear to auscultation. HEART: Regular rate and rhythm, S1, S2 present ABDOMEN: Soft nontender and distended. Positive bowel sounds. EXTREMITIES: limited ROM in LUE, right AKA, L bka NEUROLOGIC: Alert and oriented, gait normal, normal speech. PSYCHIATRIC: Normal affect, normal mood. ASSESSMENT/PLAN Assessment/Plan bilateral cellulitis/R AKA wound/L BKA wound- Consulted ID patient been on IV zosyn for 2 weeks, continue with wound care Hypertension- Continue with BB/Losartan DM II- Blood sugars better controlled, continue with current insulin regimen PVD- plavix Patient insists on going home with home health, need to see patient do more with PT/OT before discharging him home Problems: COMMENT Lab Laboratory Tests Test 07/25/17 17:12 07/25/17 20:17 07/26/17 07:19 07/26/17 11:35 Glucose (Fingerstick) 186 mg/dL (70-99) 154 mg/dL (70-99) 109 mg/dL (70-99) White Blood Count 9.2 x10^3/uL (4.0-11.0) Red Blood Count 2.53 x10^6/uL (4.30-5.70) Hemoglobin 7.4 g/dL (13.0-17.5) Hematocrit 22.6 % (39.0-53.0) Mean Corpuscular Volume 89 fL (79-100) Mean Corpuscular Hemoglobin 29 pg (25-35) Mean Corpuscular Hemoglobin Concent 33 g/dL (31-37) Red Cell Distribution Width 15.6 % (11.5-14.5) Platelet Count 208 x10^3/uL (140-400) Neutrophils (%) (Auto) 67 % (31-73) Lymphocytes (%) (Auto) 25 % (24-48) Monocytes (%) (Auto) 6 % (0-9) Eosinophils (%) (Auto) 2 % (0-3) Basophils (%) (Auto) 1 % (0-3) Neutrophils # (Auto) 6.2 x10^3uL (1.8-7.7) Lymphocytes # (Auto) 2.3 x10^3/uL (1.0-4.8) Monocytes # (Auto) 0.5 x10^3/uL (0.0-1.1) Eosinophils # (Auto) 0.2 x10^3/uL (0.0-0.7) Basophils # (Auto) 0.0 x10^3/uL (0.0-0.2) Sodium Level 143 mmol/L (136-145) Potassium Level 4.2 mmol/L (3.5-5.1) Chloride Level 110 mmol/L (98-107) Carbon Dioxide Level 23 mmol/L (21-32) Anion Gap 10 (6-14) Blood Urea Nitrogen 47 mg/dL (8-26) Creatinine 1.6 mg/dL (0.7-1.3) Estimated GFR (Cockcroft-Gault) 54.2 Glucose Level 148 mg/dL (70-99) Calcium Level 7.9 mg/dL (8.5-10.1) Test 07/26/17 12:08 Glucose (Fingerstick) 148 mg/dL (70-99) EM DIANA MD Jul 26, 2017 14:14
[2017-07-26 15:00] VITALS: BP 152/86
[2017-07-26] MEDS: ENOXAPARIN 40 MG/0.4 ML SYRINGE. SQ SCH (17:01)
--- NOTE | 2017-07-26 18:16 | CONS ---
DATE OF CONSULTATION: 07/26/2017 ROOM: 656. REQUESTING PHYSICIAN: Dr. Kim. REASON FOR CONSULTATION: Cellulitis, on Zosyn. HISTORY OF PRESENT ILLNESS: The patient is a 56-year-old gentleman with a history of bilateral lower extremity amputations. They are both BKAs. He was admitted on 07/11/2017. At that time, he was found to have a Klebsiella UTI and was placed on Zosyn. Evaluated by Vascular Surgery secondary to worsening wound dehiscence and was taken to the operating room on 07/18/[address] Ureña and underwent a right stump revision and AKA. He had been continued on the Zosyn and I have been asked to evaluate him. Currently, the patient is sitting upright in bed. He just finished his lunch. Denies any fevers or chills or sweats. He has no headaches, sore throat, cough or chest pain. No nausea, vomiting or diarrhea. He has no problems passing his urine he states. Has some mild pain associated with his right previous wound, but otherwise is doing fairly well. He does complain of some left-sided weakness in his left upper extremity. PAST MEDICAL HISTORY: Positive for history of previous CVAs, diabetes, hypertension, hyperlipidemia, previous urinary tract infections. PAST SURGICAL HISTORY: Positive for the bilateral BKAs as well as the above revision, history of appendectomy and right hand arthroscopy. REVIEW OF SYSTEMS: Otherwise negative. ALLERGIES: LISTED ASPIRIN. SOCIAL HISTORY: No tobacco or alcohol. He does have a history, he states. FAMILY HISTORY: Positive for diabetes. CURRENT MEDICATIONS: Include Plavix, vitamin C, Colace, Lovenox, Neurontin, insulin, lactobacillus, metoprolol, Zosyn, Flomax. Other meds are available and reviewed in chart. PHYSICAL EXAMINATION: VITAL SIGNS: He is afebrile, temperature 98.6, pulse 71, respirations 16, blood pressure 135/76, satting 98% on room air. CONSTITUTIONAL: He is very alert, cooperative, in no acute distress, sitting upright in bed. HEENT: Pupils are equal and reactive. Normal conjunctivae. Oral cavity, pharynx is clear. He has questionable dentition. NECK: Supple, no JVD. LUNGS: Clear to auscultation bilaterally. HEART: S1, S2. ABDOMEN: Soft, nontender, nondistended, positive bowel sounds. His right AKA incision is well approximated. There is some old blood in the medial aspect of it, but there is no fluctuance. There is no drainage. There is no warmth. There is no erythema and it is minimally tender. His right knee has a stage 2 superficial wound and his stump also has a stage 1-2 superficial wound. All his wounds do not appear to be infected at this time. SKIN: Otherwise, warm to touch. He has mild facial rash. NEUROLOGIC: He is nonfocal. He does have some left upper extremity paralysis and weakness. PSYCHIATRIC: Affect is pleasant. LABORATORY DATA: White count 9.2, hemoglobin 7.4, platelets of 208, neutrophils are 67, creatinine of 1.6, glucose of 148 and urinalysis concerning for UTI at time of presentation. Culture again has grown out Klebsiella that was resistant to ampicillin, but otherwise sensitive. His MRSA screen was also positive and the culture was positive for MRSA from his right knee. He underwent a brain MRI on 07/23/2017, which showed small acute infarct left posterior parietal lobe with possible punctate infarct in the left superior cerebellum, chronic small vessel disease, mild maxillary ethmoid sinus disease, left greater than right mastoid fluid. Cervical MRI has been reviewed as well. IMPRESSION: 1. Right stump wound, status post above knee amputation on 08/17/2017. 2. Left stump superficial wounds. 3. Urinary tract infection present on admission with Klebsiella. 4. Positive methicillin-resistant Staphylococcus aureus screen, right below knee amputation wound culture. 5. Fluid in the mastoids can be chronic and now 14 days past. Fortunately, he is on Zosyn. He is asymptomatic. 6. Left upper extremity weakness is being followed by Neurology. Questionable brachial plexus injury. RECOMMENDATIONS: For now is no need for any antibiotics, UTI should be treated, again mastoids are dressed on the impression. We did review his wounds with Juany Scherer and he just needs local wound care. Thank you for allowing me to participate in this patient's care. If you have any questions, please do not hesitate to contact me. SAYDA MEDEL MD DR: LORY/maria isabel JOB#: [id number] / [id number]
[2017-07-26 19:15] VITALS: BP 159/83
[2017-07-26] MEDS: LOSARTAN POTASSIUM 50 MG TABLET. PO SCH (20:36)
[2017-07-26] MEDS: ACETAMINOPHEN 325 MG TABLET. PO PRN (20:36)
[2017-07-26] MEDS: TAMSULOSIN 0.4 MG CAP.ER.24H. PO SCH (20:36)
[2017-07-26] MEDS: INSULIN DETEMIR 300 UNITS/3 ML INSULN.PEN. SQ SCH (20:44)
[2017-07-27 03:15] VITALS: BP 129/65
[2017-07-27 07:20] VITALS: BP 137/74
[2017-07-27] MEDS: INSULIN ASPART 300 UNITS/3 ML INSULN.PEN SQ SCH ×6 (07:30→16:35)
[2017-07-27] MEDS: GABAPENTIN 300 MG CAPSULE. PO SCH ×3 (09:16→21:28)
[2017-07-27] MEDS: MULTIVITAMIN with MINERAL TABLET. PO SCH (09:16)
[2017-07-27] MEDS: METOPROLOL TART IMMED RELEASE 25 MG TABLET. PO SCH ×2 (09:16→21:28)
[2017-07-27] MEDS: CLOPIDOGREL BISULFATE 75 MG TABLET PO SCH (09:16)
[2017-07-27] MEDS: LACTOBACILLUS RHAMNOSUS GG 1 CAPSULE. PO SCH ×2 (09:16→21:28)
[2017-07-27] MEDS: ASCORBIC ACID 500 MG TABLET PO SCH (09:16)
[2017-07-27] MEDS: DOCUSATE SODIUM 100 MG CAPSULE. PO SCH (09:17)
[2017-07-27 09:19] LABS: BASO % 0 % (0-3); EOS % 2 % (0-3); HEMATOCRIT 23.3 % (39.0-53.0); HEMOGLOBIN 7.6 g/dL (13.0-17.5); LYMPH # 1.9 x10^3/uL (1.0-4.8); LYMPH % 21 % (24-48); MEAN CORPUSCULAR HEMOGLOBIN 29 pg (25-35); MEAN CORPUSCULAR HGB CONC 33 g/dL (31-37); MEAN CORPUSCULAR VOLUME 89 fL (79-100); MONO % 6 % (0-9); NEUT % 70 % (31-73); PLATELET COUNT 209 x10^3/uL (140-400); RED BLOOD COUNT 2.63 x10^6/uL (4.30-5.70); RED CELL DISTRIBUTION WIDTH 15.8 % (11.5-14.5)
--- NOTE | 2017-07-27 10:23 | PDOC ---
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 Diabetes with neuropathy Peripheral vascular disease I suspect some dementia as well Plan Rehabilitation modalities He is not competent to make a decision regarding his going home, as he has no judgment and is not physically able to take care of himself at home. Objective Vital Signs Date Time Temp Pulse Resp B/P (MAP) Pulse Ox O2 Delivery O2 Flow Rate FiO2 07/27/17 09:16 78 137/74 07/27/17 07:20 98.5 18 95 Room Air 98.5 07/26/17 08:00 98.0 Intake and Output 07/27/17 07:00 Intake Total 1870 ml Output Total 2750 ml Balance -880 ml Intake Oral 1870 ml Output Urine Total 2750 ml # Bowel Movements 1 PHYSICAL EXAM Alert. Thinks he is at [place], thinks that it is August 23. Discusses getting his car to go home even when it is pointed out to him that he cannot operate a car. When I asked him how he is going to get along at home, he says that he will drive his car around [place]. EOMI. CN: no focal findings. Muscle tone: normal. Muscle strength: 0/5 left arm, 3/5 right arm, first dorsal interosseous atrophy , hesitates to move legs, but is able to move both, weaker on the left, though DTR: 1+ Plantar reflex: N/A Gait: not examined in bed. Sensory exam: no abnormal findings. No cerebellar signs elicited. Review of Relevant I have reviewed the following items yobani (where applicable) has been applied. Labs Laboratory Tests Test 07/25/17 11:48 07/25/17 17:12 07/25/17 20:17 07/26/17 07:19 Glucose (Fingerstick) 123 mg/dL (70-99) 186 mg/dL (70-99) 154 mg/dL (70-99) 109 mg/dL (70-99) Test 07/26/17 11:35 07/26/17 12:08 07/26/17 16:59 07/26/17 20:35 White Blood Count 9.2 x10^3/uL (4.0-11.0) Red Blood Count 2.53 x10^6/uL (4.30-5.70) Hemoglobin 7.4 g/dL (13.0-17.5) Hematocrit 22.6 % (39.0-53.0) Mean Corpuscular Volume 89 fL (79-100) Mean Corpuscular Hemoglobin 29 pg (25-35) Mean Corpuscular Hemoglobin Concent 33 g/dL (31-37) Red Cell Distribution Width 15.6 % (11.5-14.5) Platelet Count 208 x10^3/uL (140-400) Neutrophils (%) (Auto) 67 % (31-73) Lymphocytes (%) (Auto) 25 % (24-48) Monocytes (%) (Auto) 6 % (0-9) Eosinophils (%) (Auto) 2 % (0-3) Basophils (%) (Auto) 1 % (0-3) Neutrophils # (Auto) 6.2 x10^3uL (1.8-7.7) Lymphocytes # (Auto) 2.3 x10^3/uL (1.0-4.8) Monocytes # (Auto) 0.5 x10^3/uL (0.0-1.1) Eosinophils # (Auto) 0.2 x10^3/uL (0.0-0.7) Basophils # (Auto) 0.0 x10^3/uL (0.0-0.2) Sodium Level 143 mmol/L (136-145) Potassium Level 4.2 mmol/L (3.5-5.1) Chloride Level 110 mmol/L (98-107) Carbon Dioxide Level 23 mmol/L (21-32) Anion Gap 10 (6-14) Blood Urea Nitrogen 47 mg/dL (8-26) Creatinine 1.6 mg/dL (0.7-1.3) Estimated GFR (Cockcroft-Gault) 54.2 Glucose Level 148 mg/dL (70-99) Calcium Level 7.9 mg/dL (8.5-10.1) Glucose (Fingerstick) 148 mg/dL (70-99) 157 mg/dL (70-99) 138 mg/dL (70-99) Test 07/27/17 07:36 07/27/17 09:00 07/27/17 09:15 Glucose (Fingerstick) 65 mg/dL (70-99) 85 mg/dL (70-99) White Blood Count 9.0 x10^3/uL (4.0-11.0) Red Blood Count 2.63 x10^6/uL (4.30-5.70) Hemoglobin 7.6 g/dL (13.0-17.5) Hematocrit 23.3 % (39.0-53.0) Mean Corpuscular Volume 89 fL (79-100) Mean Corpuscular Hemoglobin 29 pg (25-35) Mean Corpuscular Hemoglobin Concent 33 g/dL (31-37) Red Cell Distribution Width 15.8 % (11.5-14.5) Platelet Count 209 x10^3/uL (140-400) Neutrophils (%) (Auto) 70 % (31-73) Lymphocytes (%) (Auto) 21 % (24-48) Monocytes (%) (Auto) 6 % (0-9) Eosinophils (%) (Auto) 2 % (0-3) Basophils (%) (Auto) 0 % (0-3) Neutrophils # (Auto) 6.3 x10^3uL (1.8-7.7) Lymphocytes # (Auto) 1.9 x10^3/uL (1.0-4.8) Monocytes # (Auto) 0.6 x10^3/uL (0.0-1.1) Eosinophils # (Auto) 0.2 x10^3/uL (0.0-0.7) Basophils # (Auto) 0.0 x10^3/uL (0.0-0.2) Laboratory Tests Test 07/26/17 11:35 07/26/17 12:08 07/26/17 16:59 07/26/17 20:35 White Blood Count 9.2 x10^3/uL (4.0-11.0) Red Blood Count 2.53 x10^6/uL (4.30-5.70) Hemoglobin 7.4 g/dL (13.0-17.5) Hematocrit 22.6 % (39.0-53.0) Mean Corpuscular Volume 89 fL (79-100) Mean Corpuscular Hemoglobin 29 pg (25-35) Mean Corpuscular Hemoglobin Concent 33 g/dL (31-37) Red Cell Distribution Width 15.6 % (11.5-14.5) Platelet Count 208 x10^3/uL (140-400) Neutrophils (%) (Auto) 67 % (31-73) Lymphocytes (%) (Auto) 25 % (24-48) Monocytes (%) (Auto) 6 % (0-9) Eosinophils (%) (Auto) 2 % (0-3) Basophils (%) (Auto) 1 % (0-3) Neutrophils # (Auto) 6.2 x10^3uL (1.8-7.7) Lymphocytes # (Auto) 2.3 x10^3/uL (1.0-4.8) Monocytes # (Auto) 0.5 x10^3/uL (0.0-1.1) Eosinophils # (Auto) 0.2 x10^3/uL (0.0-0.7) Basophils # (Auto) 0.0 x10^3/uL (0.0-0.2) Sodium Level 143 mmol/L (136-145) Potassium Level 4.2 mmol/L (3.5-5.1) Chloride Level 110 mmol/L (98-107) Carbon Dioxide Level 23 mmol/L (21-32) Anion Gap 10 (6-14) Blood Urea Nitrogen 47 mg/dL (8-26) Creatinine 1.6 mg/dL (0.7-1.3) Estimated GFR (Cockcroft-Gault) 54.2 Glucose Level 148 mg/dL (70-99) Calcium Level 7.9 mg/dL (8.5-10.1) Glucose (Fingerstick) 148 mg/dL (70-99) 157 mg/dL (70-99) 138 mg/dL (70-99) Test 07/27/17 07:36 07/27/17 09:00 07/27/17 09:15 Glucose (Fingerstick) 65 mg/dL (70-99) 85 mg/dL (70-99) White Blood Count 9.0 x10^3/uL (4.0-11.0) Red Blood Count 2.63 x10^6/uL (4.30-5.70) Hemoglobin 7.6 g/dL (13.0-17.5) Hematocrit 23.3 % (39.0-53.0) Mean Corpuscular Volume 89 fL (79-100) Mean Corpuscular Hemoglobin 29 pg (25-35) Mean Corpuscular Hemoglobin Concent 33 g/dL (31-37) Red Cell Distribution Width 15.8 % (11.5-14.5) Platelet Count 209 x10^3/uL (140-400) Neutrophils (%) (Auto) 70 % (31-73) Lymphocytes (%) (Auto) 21 % (24-48) Monocytes (%) (Auto) 6 % (0-9) Eosinophils (%) (Auto) 2 % (0-3) Basophils (%) (Auto) 0 % (0-3) Neutrophils # (Auto) 6.3 x10^3uL (1.8-7.7) Lymphocytes # (Auto) 1.9 x10^3/uL (1.0-4.8) Monocytes # (Auto) 0.6 x10^3/uL (0.0-1.1) Eosinophils # (Auto) 0.2 x10^3/uL (0.0-0.7) Basophils # (Auto) 0.0 x10^3/uL (0.0-0.2) Microbiology 07/15/17 Blood Culture - Final, Complete NO GROWTH AFTER 5 DAYS 07/11/17 Urine Culture - Final, Complete 07/11/17 Urine Culture Result 1 ([facility]) - Final, Complete 07/11/17 Antimicrobic Susceptibility - Final, Complete 07/14/17 Gram Stain - Final, Complete Medications Current Medications Sodium Chloride 1,000 ml @ 1,000 mls/hr 1X ONCE IV Last administered on 07/11 18:11; Start 07/11/17 at 18:00; Stop 07/11/17 at 18:59; Status DC Insulin Human Regular (NovoLIN R VIAL) 10 unit 1X ONCE IV Last administered on 07/11/17 18:56; Start 07/11/17 at 19:00; Stop 07/11/17 at 19:01; Status DC Acetaminophen (Tylenol) 650 mg PRN Q4HRS PRN PO MILD PAIN Last administered on 07/26/17 20:36; Start 07/12/17 at 13:00 Clopidogrel Bisulfate (Plavix) 75 mg DAILY PO Last administered on 07/27/17 09 :16; Start 07/12/17 at 14:00 Docusate Sodium (Colace) 100 mg DAILY PO Last administered on 07/27/17 09:17; Start 07/12/17 at 14:00 Acetaminophen/ Hydrocodone Bitart (Lortab 5/325) 1 tab PRN Q6HRS PRN PO MODERATE PAIN; Start 07/12/17 at 13:00 Losartan Potassium (Cozaar) 50 mg QHS PO Last administered on 07/26/17 20:36; Start 07/12/17 at 21:00 Tamsulosin HCl (Flomax) 0.4 mg QHS PO Last administered on 07/26/17 20:36; Start 07/12/17 at 21:00 Insulin Detemir (Levemir) 19 units QHS SQ Last administered on 07/13/17 21:22 ; Start 07/12/17 at 21:00; Stop 07/14/17 at 12:26; Status DC Insulin Aspart (NovoLOG) 7 units TIDAC SQ Last administered on 07/23/17 13:57 ; Start 07/12/17 at 16:30; Stop 07/23/17 at 15:06; Status DC Piperacillin Sod/ Tazobactam Sod 3.375 gm/Dextrose 50 ml @ 100 mls/hr Q6HRS IV ; Start 07/12/17 at 16:00; Status Cancel Piperacillin Sod/ Tazobactam Sod (Zosyn) 3.375 gm Q6HRS IVP Last administered on 07/26/17 05:53; Start 07/12/17 at 16:00; Stop 07/26/17 at 13:14; Status DC Enoxaparin Sodium (Lovenox 40mg Syringe) 40 mg Q24H SQ Last administered on 17:01; Start 07/13/17 at 15:00 Insulin Detemir (Levemir) 22 units QHS SQ Last administered on 07/22/17 20:37 ; Start 07/14/17 at 21:00; Stop 07/23/17 at 15:06; Status DC Lactobacillus Rhamnosus (Culturelle) 1 cap BID PO Last administered on 09:16; Start 07/14/17 at 21:00 Sodium Chloride 500 ml @ 500 mls/hr 1X ONCE IV Last administered on 09:09; Start 07/15/17 at 09:00; Stop 07/15/17 at 09:59; Status DC Ceftriaxone Sodium 1 gm/ Dextrose 50 ml @ 100 mls/hr Q24H IV ; Start 07/16/17 at 12:45; Status UNV Ondansetron HCl (Zofran) 4 mg PRN Q6HRS PRN IV NAUSEA/VOMITING; Start at 12:45 Acetaminophen (Tylenol) 650 mg PRN Q6HRS PRN PO pain; Start 07/16/17 at 12:45 ; Status UNV Insulin Aspart (NovoLOG) 0-9 UNITS TIDWMEALS SQ Last administered on 07/26/17 17:06; Start 07/16/17 at 17:00 Dextrose (Dextrose 50%-Water Syringe) 12.5 gm PRN Q15MIN PRN IV SEE COMMENTS; Start 07/16/17 at 12:45 Oxycodone/ Acetaminophen (Percocet 5/325) 1 tab PRN Q4HRS PRN PO PAIN; Start 07/16/17 at 12:45; Stop 07/19/17 at 09:35; Status DC Ceftriaxone Sodium (Rocephin) 1 gm Q24H IVP Last administered on 07/16/17 13: 52; Start 07/16/17 at 13:00; Stop 07/16/17 at 14:30; Status DC Piperacillin Sod/ Tazobactam Sod (Zosyn Per Pharmacy) 1 each PRN DAILY PRN MC SEE COMMENTS; Start 07/16/17 at 14:30; Stop 07/18/17 at 15:44; Status DC Ondansetron HCl (Zofran) 4 mg PRN Q6HRS PRN IV NAUSEA/VOMITING; Start at 07:45; Stop 07/19/17 at 07:44; Status DC Fentanyl Citrate (Fentanyl 2ml Vial) 25 mcg PRN Q5MIN PRN IV MILD PAIN; Start 07/18/17 at 07:45; Stop 07/19/17 at 07:44; Status DC Fentanyl Citrate (Fentanyl 2ml Vial) 50 mcg PRN Q5MIN PRN IV MODERATE PAIN; Start 07/18/17 at 07:45; Stop 07/19/17 at 07:44; Status DC Morphine Sulfate 1 mg PRN Q10MIN PRN IV SEVERE PAIN; Start 07/18/17 at 07:45; Stop 07/19/17 at 07:44; Status DC Ringer's Solution 1,000 ml @ 30 mls/hr Q24H IV ; Start 07/18/17 at 07:43; Stop 07/18/17 at 19:42; Status DC Lidocaine HCl (Xylocaine-Mpf 1% Vial) 2 ml 1X PRN PRN ID IV START; Start 07/18 at 07:45; Stop 07/19/17 at 07:44; Status DC Hydromorphone HCl (Dilaudid) 0.5 mg PRN Q10MIN PRN IV SEV PAIN, Second choice; Start 07/18/17 at 07:45; Stop 07/19/17 at 07:44; Status DC Prochlorperazine Edisylate (Compazine) 5 mg PACU PRN PRN IV NAUSEA, MRX1; Start 07/18/17 at 07:45; Stop 07/19/17 at 07:44; Status DC Sevoflurane (Ultane) 90 ml STK-MED ONCE IH ; Start 07/18/17 at 11:37; Stop at 12:47; Status DC Neostigmine Methylsulfate (Bloxiverz) 10 mg STK-MED ONCE .ROUTE ; Start at 11:37; Stop 07/18/17 at 12:47; Status DC Midazolam HCl (Versed) 2 mg STK-MED ONCE .ROUTE ; Start 07/18/17 at 11:38; Stop 07/18/17 at 12:47; Status DC Fentanyl Citrate (Fentanyl 2ml Vial) 100 mcg STK-MED ONCE .ROUTE ; Start at 11:38; Stop 07/18/17 at 12:47; Status DC Glycopyrrolate (Robinul) 1 mg STK-MED ONCE .ROUTE ; Start 07/18/17 at 11:38; Stop 07/18/17 at 12:47; Status DC Rocuronium [place] (Zemuron) 50 mg STK-MED ONCE .ROUTE ; Start 07/18/17 at 11: 38; Stop 07/18/17 at 12:47; Status DC Propofol 20 ml @ As Directed STK-MED ONCE IV ; Start 07/18/17 at 11:38; Stop 07/18/17 at 12:47; Status DC Lidocaine HCl (Lidocaine Pf 2% Vial) 5 ml STK-MED ONCE .ROUTE ; Start 07/18/17 at 11:38; Stop 07/18/17 at 12:47; Status DC Dexamethasone Sodium Phosphate (Decadron) 20 mg STK-MED ONCE .ROUTE ; Start at 11:38; Stop 07/18/17 at 12:47; Status DC Ondansetron HCl (Zofran) 4 mg STK-MED ONCE .ROUTE ; Start 07/18/17 at 11:38; Stop 07/18/17 at 12:48; Status DC Cefazolin Sodium 1 gm/Sodium Chloride 250 ml @ 250 mls/hr 1X PERIOP ONCE IRR ; Start 07/18/17 at 14:00; Stop 07/18/17 at 14:59; Status DC Vasopressin (Vasostrict) 20 unit STK-MED ONCE .ROUTE ; Start 07/18/17 at 14:27 ; Stop 07/18/17 at 14:28; Status DC Fentanyl Citrate (Fentanyl 2ml Vial) 100 mcg STK-MED ONCE .ROUTE ; Start at 14:42; Stop 07/18/17 at 14:43; Status DC Morphine Sulfate 2 mg PRN Q2HR PRN IV PAIN; Start 07/18/17 at 15:30 Sodium Chloride 1,000 ml @ 100 mls/hr Q10H PRN IV SEE COMMENTS; Start at 12:00 Multivitamins (Thera M Plus) 1 tab DAILY PO Last administered on 07/27/17 09: 16; Start 07/19/17 at 10:00 Ascorbic Acid (Vitamin C) 500 mg DAILY PO Last administered on 07/27/17 09:16 ; Start 07/19/17 at 10:00 Gabapentin (Neurontin) 300 mg TID PO Last administered on 07/27/17 09:16; Start 07/19/17 at 09:45 Acetaminophen/ Hydrocodone Bitart (Lortab 7.5/325) 1 tab PRN Q4HRS PRN PO PAIN ; Start 07/19/17 at 09:45 Metoprolol Tartrate (Lopressor) 25 mg BID PO Last administered on 07/27/17 09: 16; Start 07/21/17 at 21:00 Metoprolol Tartrate (Lopressor) 25 mg 1X ONCE PO ; Start 07/21/17 at 09:45; Stop 07/21/17 at 09:51; Status DC Insulin Aspart (NovoLOG) 10 units TIDAC SQ Last administered on 07/26/17 17:06 ; Start 07/23/17 at 16:30 Insulin Detemir (Levemir) 26 units QHS SQ Last administered on 07/26/17 20:44 ; Start 07/23/17 at 21:00 Active Scripts Active Flomax (Tamsulosin Hcl) 0.4 Mg Cap.er.24h 0.4 Mg PO QHS Reported Humalog (Insulin Lispro) 100 Unit/1 Ml Insuln.pen 7 Unit SQ TIDWMEALS Tylenol (Acetaminophen) 325 Mg Tablet 650 Mg PO PRN Q4HRS PRN Losartan Potassium 50 Mg Tablet 50 Mg PO QHS Lantus Solostar (Insulin Glargine,Hum.rec.anlog) 100 Unit/1 Ml Insuln.pen 19 Unit SQ QHS Colace (Docusate Sodium) 100 Mg Capsule 100 Mg PO DAILY Clopidogrel (Clopidogrel Bisulfate) 75 Mg Tablet 75 Mg PO DAILY Hydrocodone-Apap 5-325 (Hydrocodone Bit/Acetaminophen) 1 Each Tablet 1 Tab PO PRN Q6HRS PRN Vitals/I & O Vital Sign - Last 24 Hours 07/26/17 07/26/17 07/26/17 07/26/17 15:00 19:15 20:00 20:36 Temp 99.0 100.6 99.0 100.6 Pulse 81 85 85 Resp 18 18 B/P (MAP) 152/86 (108) 159/83 (108) 159/83 O2 Delivery Room Air Room Air Room Air 07/26/17 07/27/17 07/27/17 07/27/17 20:37 03:15 07:20 09:16 Temp 98.3 98.5 98.3 98.5 Pulse 85 71 78 78 Resp 18 18 B/P (MAP) 159/83 129/65 (86) 137/74 (95) 137/74 Pulse Ox 95 O2 Delivery Room Air Room Air Intake and Output 07/26/17 07/26/1717 15:00 23:00 07:00 Intake Total 820 ml 1050 ml Output Total 1350 ml 1400 ml Balance -530 ml -350 ml NADEGE JAIN MD Jul 27, 2017 10:23
--- NOTE | 2017-07-27 10:33 | PDOC ---
SUBJECTIVE Subjective Patient seen and examined at bedside tells me he knows he's at [place]. Patient was frustrated with therapy yesterday because he has gotten so weak. Patient knows he's not where he is physically like he was before he came here. OBJECTIVE Vital Signs Vital Signs Date Time Temp Pulse Resp B/P (MAP) Pulse Ox O2 Delivery O2 Flow Rate FiO2 07/27/17 09:16 78 137/74 07/27/17 07:20 98.5 78 18 137/74 (95) 95 Room Air 98.5 07/27/17 03:15 98.3 71 18 129/65 (86) Room Air 98.3 07/26/17 20:37 85 159/83 07/26/17 20:36 85 159/83 07/26/17 20:00 Room Air 07/26/17 19:15 100.6 85 18 159/83 (108) Room Air 100.6 07/26/17 15:00 99.0 81 18 152/86 (108) Room Air 99.0 I & O Intake and Output 07/27/17 07:00 Intake Total 1870 ml Output Total 2750 ml Balance -880 ml Intake Oral 1870 ml Output Urine Total 2750 ml # Bowel Movements 1 PHYSICAL EXAM Physical Exam GEN.: No apparent distress. Alert and oriented. HEENT: Head is normocephalic and atraumatic. LUNGS: Clear to auscultation. HEART: Regular rate and rhythm, S1, S2 present ABDOMEN: Soft nontender and distended. Positive bowel sounds. EXTREMITIES: limited ROM in LUE and swollen, right AKA, L bka NEUROLOGIC: Alert and oriented, gait normal, normal speech. PSYCHIATRIC: Normal affect, normal mood. ASSESSMENT/PLAN Assessment/Plan bilateral cellulitis/R AKA wound/L BKA wound- continue with local wound care no more IV abx needed, appreciate ID input Hypertension- Continue with BB/Losartan DM II- Blood sugars better controlled, continue with current insulin regimen PVD- plavix Right parietal stroke- continue with OT/PT/plavix Left brachial plexopathy Patient needs rehab he will not be safe at home he can't support himself sitting up for long periods of time Problems: COMMENT Lab Laboratory Tests Test 07/26/17 11:35 07/26/17 12:08 07/26/17 16:59 07/26/17 20:35 White Blood Count 9.2 x10^3/uL (4.0-11.0) Red Blood Count 2.53 x10^6/uL (4.30-5.70) Hemoglobin 7.4 g/dL (13.0-17.5) Hematocrit 22.6 % (39.0-53.0) Mean Corpuscular Volume 89 fL (79-100) Mean Corpuscular Hemoglobin 29 pg (25-35) Mean Corpuscular Hemoglobin Concent 33 g/dL (31-37) Red Cell Distribution Width 15.6 % (11.5-14.5) Platelet Count 208 x10^3/uL (140-400) Neutrophils (%) (Auto) 67 % (31-73) Lymphocytes (%) (Auto) 25 % (24-48) Monocytes (%) (Auto) 6 % (0-9) Eosinophils (%) (Auto) 2 % (0-3) Basophils (%) (Auto) 1 % (0-3) Neutrophils # (Auto) 6.2 x10^3uL (1.8-7.7) Lymphocytes # (Auto) 2.3 x10^3/uL (1.0-4.8) Monocytes # (Auto) 0.5 x10^3/uL (0.0-1.1) Eosinophils # (Auto) 0.2 x10^3/uL (0.0-0.7) Basophils # (Auto) 0.0 x10^3/uL (0.0-0.2) Sodium Level 143 mmol/L (136-145) Potassium Level 4.2 mmol/L (3.5-5.1) Chloride Level 110 mmol/L (98-107) Carbon Dioxide Level 23 mmol/L (21-32) Anion Gap 10 (6-14) Blood Urea Nitrogen 47 mg/dL (8-26) Creatinine 1.6 mg/dL (0.7-1.3) Estimated GFR (Cockcroft-Gault) 54.2 Glucose Level 148 mg/dL (70-99) Calcium Level 7.9 mg/dL (8.5-10.1) Glucose (Fingerstick) 148 mg/dL (70-99) 157 mg/dL (70-99) 138 mg/dL (70-99) Test 07/27/17 07:36 07/27/17 09:00 07/27/17 09:15 Glucose (Fingerstick) 65 mg/dL (70-99) 85 mg/dL (70-99) White Blood Count 9.0 x10^3/uL (4.0-11.0) Red Blood Count 2.63 x10^6/uL (4.30-5.70) Hemoglobin 7.6 g/dL (13.0-17.5) Hematocrit 23.3 % (39.0-53.0) Mean Corpuscular Volume 89 fL (79-100) Mean Corpuscular Hemoglobin 29 pg (25-35) Mean Corpuscular Hemoglobin Concent 33 g/dL (31-37) Red Cell Distribution Width 15.8 % (11.5-14.5) Platelet Count 209 x10^3/uL (140-400) Neutrophils (%) (Auto) 70 % (31-73) Lymphocytes (%) (Auto) 21 % (24-48) Monocytes (%) (Auto) 6 % (0-9) Eosinophils (%) (Auto) 2 % (0-3) Basophils (%) (Auto) 0 % (0-3) Neutrophils # (Auto) 6.3 x10^3uL (1.8-7.7) Lymphocytes # (Auto) 1.9 x10^3/uL (1.0-4.8) Monocytes # (Auto) 0.6 x10^3/uL (0.0-1.1) Eosinophils # (Auto) 0.2 x10^3/uL (0.0-0.7) Basophils # (Auto) 0.0 x10^3/uL (0.0-0.2) EM DIANA MD Jul 27, 2017 10:33
[2017-07-27 11:29] VITALS: BP 134/64
[2017-07-27 15:17] VITALS: BP 144/78
[2017-07-27] MEDS: ENOXAPARIN 40 MG/0.4 ML SYRINGE. SQ SCH (16:32)
[2017-07-27 19:41] VITALS: BP 155/74
[2017-07-27] MEDS: TAMSULOSIN 0.4 MG CAP.ER.24H. PO SCH (21:28)
[2017-07-27] MEDS: LOSARTAN POTASSIUM 50 MG TABLET. PO SCH (21:29)
[2017-07-27] MEDS: INSULIN DETEMIR 300 UNITS/3 ML INSULN.PEN. SQ SCH (21:37)
[2017-07-27 23:00] VITALS: BP 141/78
[2017-07-28 03:28] VITALS: BP 148/71
[2017-07-28 07:30] VITALS: BP 140/72
[2017-07-28] MEDS: INSULIN ASPART 300 UNITS/3 ML INSULN.PEN SQ SCH ×4 (07:30→12:23)
[2017-07-28] MEDS: DOCUSATE SODIUM 100 MG CAPSULE. PO SCH (09:00)
[2017-07-28] MEDS: LACTOBACILLUS RHAMNOSUS GG 1 CAPSULE. PO SCH (09:25)
[2017-07-28] MEDS: GABAPENTIN 300 MG CAPSULE. PO SCH (09:26)
[2017-07-28] MEDS: CLOPIDOGREL BISULFATE 75 MG TABLET PO SCH (09:26)
[2017-07-28] MEDS: MULTIVITAMIN with MINERAL TABLET. PO SCH (09:26)
[2017-07-28] MEDS: ASCORBIC ACID 500 MG TABLET PO SCH (09:26)
[2017-07-28] MEDS: METOPROLOL TART IMMED RELEASE 25 MG TABLET. PO SCH (09:26)
[2017-07-28 11:00] VITALS: BP 140/77
--- NOTE | 2017-07-28 16:50 | PDOC3 ---
Discharge Summary [facility] Date of Admission: Jul 11, 2017 Discharge Date: Jul 28, 2017 Admitting Diagnosis Cellulitis, Uncontrolled DM II, UTI, sepsis, anemia Problems: (1) Hyperglycemia (2) Anemia (3) UTI (urinary tract infection) (4) Non-pressure chronic ulcer of right calf with fat layer exposed Final Diagnosis Problems Medical Problems: (1) Hyperglycemia Status: Acute CONSULTS ID, Neurology, Vascular, Orthopedics Brief Hospital Course Mr. Romero is a 56 old male with history of bilateral BKA came in would bleeding from the wounds found to have BS of 500 and hemoglobin if less than 7. Patient had to be transfused a couple of units of blood and patients insulin regimen was adjusted to get better control. Patient was seen by orthopedics and vascular it was decided to start patient on IV antibiotics and do a Right AKA. Patient tolerated the procedure well, he developed weakness in LUE and neurology was consulted and thought it was brachial plexopathy. Patient was having a tough time getting stronger and was working with PT and felt like the patient needed to go to SNF. After thinking about it the patient agreed to go to SNF and the patient was medically stable for discharge. Problems: Disposition SNF Discharge Time: 34 min CONDITION AT DISCHARGE: Improved, Stable Diet cardiac, ADA Scheduled Clopidogrel Bisulfate (Clopidogrel), 75 MG PO DAILY, (Reported) Docusate Sodium (Colace), 100 MG PO DAILY, (Reported) Insulin Glargine,Hum.rec.anlog (Lantus Solostar), 19 UNIT SQ QHS, (Reported) Insulin Lispro (Humalog), 7 UNIT SQ TIDWMEALS, (Reported) Losartan Potassium (Losartan Potassium), 50 MG PO QHS, (Reported) Tamsulosin Hcl (Flomax), 0.4 MG PO QHS Scheduled PRN Acetaminophen (Tylenol), 650 MG PO PRN Q4HRS PRN for PAIN, (Reported) Hydrocodone Bit/Acetaminophen (Hydrocodone-Apap 5-325 ), 1 TAB PO PRN Q6HRS PRN for PAIN, (Reported) Follow Up Follow-up with PCP in 1-2 weeks Problem Qualifiers (1) Anemia: Anemia type: other cause Other causes of anemia: other cause, not classified Qualified Codes: D64.89 - Other specified anemias (2) UTI (urinary tract infection): Urinary tract infection type: catheter-associated UTI EM DIANA MD Jul 28, 2017 16:50
== END 2017-07-28 13:00 | DRG 853 ==
LOC: ER 17:40 → 6 SOUTH 18:16
PROVIDERS: ADMIT Internal Medicine; ATTEND Internal Medicine
PROC: 30233N1 Transfusion of Nonautologous Red Blood Cells into Peripheral Vein, Percutaneous Approach (ICD-10-PCS; 2017-07-11)
PROC: 0JDP0ZZ Extraction of Left Lower Leg Subcutaneous Tissue and Fascia, Open Approach (ICD-10-PCS; 2017-07-12)
PROC: 0JDN0ZZ Extraction of Right Lower Leg Subcutaneous Tissue and Fascia, Open Approach (ICD-10-PCS; 2017-07-12)
PROC: 0Y6C0Z1 Detachment at Right Upper Leg, High, Open Approach (ICD-10-PCS; principal; 2017-07-18 11:30)
DX: A41.9 Sepsis, unspecified organism (principal); E43 Unspecified severe protein-calorie malnutrition; G95.89 Other specified diseases of spinal cord; L89.212 Pressure ulcer of right hip, stage 2; E10.22 Type 1 diabetes mellitus with diabetic chronic kidney disease; I13.0 Hypertensive heart and chronic kidney disease with heart failure and stage 1 through stage 4 chronic kidney disease, or unspecified chronic kidney disease; L97.212 Non-pressure chronic ulcer of right calf with fat layer exposed; L03.116 Cellulitis of left lower limb; L03.115 Cellulitis of right lower limb; N39.0 Urinary tract infection, site not specified; E10.621 Type 1 diabetes mellitus with foot ulcer; E10.40 Type 1 diabetes mellitus with diabetic neuropathy, unspecified; I50.9 Heart failure, unspecified; D63.1 Anemia in chronic kidney disease; E10.65 Type 1 diabetes mellitus with hyperglycemia; E10.622 Type 1 diabetes mellitus with other skin ulcer; E10.51 Type 1 diabetes mellitus with diabetic peripheral angiopathy without gangrene; E78.00 Pure hypercholesterolemia, unspecified; G40.909 Epilepsy, unspecified, not intractable, without status epilepticus; G54.6 Phantom limb syndrome with pain; G54.0 Brachial plexus disorders; G83.20 Monoplegia of upper limb affecting unspecified side; K21.9 Gastro-esophageal reflux disease without esophagitis; M24.561 Contracture, right knee; M24.562 Contracture, left knee; M48.00 Spinal stenosis, site unspecified; N18.3 Chronic kidney disease, stage 3 (moderate); Z83.3 Family history of diabetes mellitus; Z82.49 Family history of ischemic heart disease and other diseases of the circulatory system; Z89.511 Acquired absence of right leg below knee; Z89.512 Acquired absence of left leg below knee; Z89.611 Acquired absence of right leg above knee; Z90.49 Acquired absence of other specified parts of digestive tract; Z91.14 Patient's other noncompliance with medication regimen
CPT/HCPCS: 36415; 70450; 70551; 72141; 73562; 73590; 80048; 80053; 81001; 82607; 82728; 82746; 82962; 83036; 83540; 83550; 83605; 83615; 85014; 85018; 85025; 85045; 85610; 86850; 86900; 86901; 86920; 87040; 87070; 87086; 87186; 87205; 87641; 88307; 93925; 93971; J0696; J1100; J1650; J1815; J2250; J2405; J2543; J2704; J2710; J3010; J3490; J7030; J7040; P9016; 97110; 97530; 99285-25; J2001